=== PATIENT | male | born 1960 | race Caucasian/White ===

== ENCOUNTER 2023-02-18 05:55 | Emergency (ER) | payer MEDICAID, SELFPAY ==
--- NOTE | 2023-02-18 08:30 | DI.CT_ITS ---
Exam(s) CT ABDOMEN PELVIS W EXAM: CT ABDOMEN PELVIS W CLINICAL HISTORY: ? rectal abscess. TECHNIQUE: Imaging Protocol: Axial computed tomography images with coronal and sagittal reformatted images were created and reviewed CONTRAST MATERIAL: Intravenous: Omnipaque 350 Contrast volume:100 ml Oral: yes / COMPARISON: No exams were available for comparison FINDINGS: ABDOMEN: Lung Bases: Normal where visualized. Liver: Normal density. No measurable mass. Gallbladder and biliary tract: No radiodense calculus or dilation. Pancreas: Normal density, no abnormal calcifications or inflammatory process. Spleen: Normal. Kidneys: Normal size, contour and axis. No radiodense stones or obstructive uropathy. No suspicious m asses seen. Adrenal glands: No masses seen. Abdominal Aorta: Abdominal portion non-dilated. PELVIS: Bladder: No gross wall thickening. No calculi.No focal mass. Bowel: There is a large quantity of stool in the rectum. There is surrounding marked thickening of t he rectal wall. There is marked swelling as well as air seen in the perianal region and gluteal fold s. No drainable abscess. The extent of the soft tissue abnormality is not fully included on the exa m. No discrete mass is visible however not excluded. No obstruction. Appendix normal. Peritoneal cavity: No ascites, collection or mesenteric inflammatory response. Bones: Degenerative changes in the lumbar spine. Reproductive organs: Within normal limits. Lymph nodes: Multiple enlarged bilateral inguinal lymph nodes, likely reactive. Enlarged right iliac chain lymph node, 2 cm. Impression: Large quantity of stool in the rectum. Marked rectal wall thickening. Extensive soft tissue inflamm ation in the inferior gluteal fold region. No drainable abscess. Findings discussed with America Gamez, emergency department provider. RADIATION DOSE DELIVERED: 718.97mGy.cm Total DLP DATA REPOSITORY: All CT scans at this facility are submitted to the National Radiology Data Registry (NRDR) Dose Index Registry (DIR) with the [employer] (A[employer]). RADIATION OPTIMIZATION: All CT scans at this facility use at least one of these dose optimization te chniques: automated exposure control; mA and/or kV adjustment per patient size (includes targeted exa ms where dose is matched to clinical indication); or iterative reconstruction.
--- NOTE | 2023-02-18 08:40 | W.EDPROG ---
Date of service: 02/18/23 Time of Service: 08:00 Medical Decision Making 0800 --please see Dr. Tirado's note for initial presentation, exam and plan. Please note that patient was initially evaluated during [facility] downtime. Please refer to Dr. Tirado's paper documentation for initial ED visit note. Case endorsed to follow-up on CT imaging results and final disposition. Per discussion with Dr. Tirado, patient's high white blood cell count of 26 and concerning external peritoneal signs of infection, will likely need admission for at minimum IV antibiotics and additional evaluation. Patient is a 62-year-old male who has not seen a doctor in 10+ years presents for bruising rectal pain and swelling for the past month. He is also noted swelling and redness now progressing to his scrotum over the last few days. Denies any fever, chills, body aches, nausea, vomiting, abdominal pain, change in urination or bowel habits. Denies rectal bleeding. His abdomen is soft and nontender. He has what appears to be a large 8 x 8 cm irregularly shaped mass with multiple crevices which resemble the surface of a brain. There appears to be serous drainage. Scrotum appears mildly erythematous but no significant edema. CT pending. Patient reports that he does not have insurance or a car. He states he has been out of work due to the symptoms. We will consult care management. 1045 --CAT scan reviewed and notes a large quantity of stool in the rectum with marked rectal wall thickening and extensive soft tissue inflammation in the inferior gluteal fold region but no evidence of drainable abscess. Case discussed and imaging reviewed with Dr. Driver. She evaluated patient at bedside. Differential diagnosis includes rectal neoplasm versus extensive HPV. 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 Recommends a dose of Zosyn IV x1 here and send home with Augmentin twice daily for 10 days. She will follow-up with patient on Wednesday for a flex Sig and biopsy. Patient was given a dose of Zosyn here. A prescription for Augmentin was sent electronically to his pharmacy. He was placed on general surgery follow-up list for plan for day surgery on Wednesday for flex sig and biopsy. Patient was advised to return here immediately with any fever, chills, vomiting or abdominal pain. Patient met with Rosa Maria with care management at bedside and she will start the referral process likely for Medicaid and for [facility] for help with transportation to appointments. Medical Records Medical records reviewed: Yes I reviewed the patient's medical records. Imaging Data Radiologic Study: Radiologist's impression: CT ABDOMEN ? PELVIS W CLINICAL HISTORY: ? ? rectal abscess.? TECHNIQUE:? Imaging Protocol: Axial computed tomography images with coronal and sagittal reformatted images were created and reviewed CONTRAST MATERIAL:? Intravenous: Omnipaque 350 Contrast volume:100 ml Oral: yes / COMPARISON:? No exams were available for comparison FINDINGS: ABDOMEN: Lung Bases: Normal where visualized. Liver: Normal density. No measurable mass. Gallbladder and biliary tract: No radiodense calculus or dilation.? Pancreas: Normal density, no abnormal calcifications or inflammatory process. Spleen: Normal. Kidneys: Normal size, contour and axis. No radiodense stones or obstructive uropathy. No suspicious masses seen. Adrenal glands: No masses seen. Abdominal Aorta: Abdominal portion non-dilated. PELVIS:? Bladder:? No gross wall thickening. No calculi.No focal mass. Bowel: There is a large quantity of stool in the rectum.? There is surrounding marked thickening of the rectal wall.? There is marked swelling as well as air seen in the perianal region and gluteal folds.? No drainable abscess.? The extent of the soft tissue abnormality is not fully included on the exam. No discrete mass is visible however not excluded. No obstruction. ? Appendix normal. Peritoneal cavity: No ascites, collection or mesenteric inflammatory response. Bones: Degenerative changes in the lumbar spine.? Reproductive organs: Within normal limits. Lymph nodes: Multiple enlarged bilateral inguinal lymph nodes, likely reactive.? Enlarged right iliac chain lymph node, 2 cm. Impression: Large quantity of stool in the rectum.? Marked rectal wall thickening.? Extensive soft tissue inflammation in the inferior gluteal fold region.? No drainable abscess. Lab Data Lab results reviewed: Yes I reviewed the patient's lab results. Labs: Laboratory Tests Range/Units 02/18/23 02/18/23 02/18/23 06:11 06:11 06:11 WBC (4.4-10.8) 10^3/uL 26.33 H* RBC (4.36-5.78) 10^6/uL 4.10 L Hgb (13.5-17.5) g/dL 11.0 L Hct (40.0-50.0) % 34.6 L MCV (80-95) fL 84 MCH (27.0-33.0) pg 26.8 L MCHC (32.0-36.0) % 31.8 L RDW (11.8-14.1) % 15.4 H Plt Count (130-400) 10^3/uL 521 H MPV (8.0-11.0) fL 8.8 Immature Gran % 0.8 Neutrophils % 83.7 Lymphocytes % 8.1 Monocytes % 5.6 Eosinophils % 1.5 Basophils % 0.3 Nucleated RBC % (0.0-0.3) % 0.0 Absolute Neutrophils (1.2-6.7) 10^3/uL 22.04 H Absolute Lymphocytes (1.2-3.4) 10^3/uL 2.14 Absolute Monocytes (0.1-0.8) 10^3/uL 1.48 H Absolute Eosinophils (0.0-0.7) 10^3/uL 0.40 Absolute Basophils (0.0-0.2) 10^3/uL 0.07 PT (9.3-11.0) sec 10.4 INR (0.9-1.1) 1.0 APTT (21.5-31.9) sec 26.1 Sodium (136-145) mmol/L 136 Potassium (3.5-5.1) mmol/L 4.0 Chloride (98-107) mmol/L 101 Carbon Dioxide (21.0-32.0) mmol/L 27.7 Anion Gap (3-11) mmol/L 7.3 BUN (7-18) mg/dL 13 Creatinine (0.70-1.30) mg/dL 1.1 Est GFR (CKD-EPI 2020) (mL/min/1.73m2) 76.37 Glucose (74-106) mg/dL 146 H Calcium (8.5-10.1) mg/dL 9.4 Magnesium (1.8-2.4) mg/dL 2.0 Ferritin (26-388) ng/mL Total Bilirubin (0.2-1.0) mg/dL 0.3 AST (15-37) U/L 29 ALT (16-63) U/L 34 Alkaline Phosphatase (46-116) U/L 101 C-Reactive Protein (0.0-0.3) mg/dL Total Protein (6.4-8.2) g/dL 8.9 H Albumin (3.4-5.0) g/dL 2.6 L Lipase (16-77) U/L 16 Vitamin B12 (193-986) pg/mL Folate (8.6-20.0) ng/mL Add-On Test Request Range/Units 02/18/23 02/18/23 06:11 20:14 WBC (4.4-10.8) 10^3/uL RBC (4.36-5.78) 10^6/uL Hgb (13.5-17.5) g/dL Hct (40.0-50.0) % MCV (80-95) fL MCH (27.0-33.0) pg MCHC (32.0-36.0) % RDW (11.8-14.1) % Plt Count (130-400) 10^3/uL MPV (8.0-11.0) fL Immature Gran % Neutrophils % Lymphocytes % Monocytes % Eosinophils % Basophils % Nucleated RBC % (0.0-0.3) % Absolute Neutrophils (1.2-6.7) 10^3/uL Absolute Lymphocytes (1.2-3.4) 10^3/uL Absolute Monocytes (0.1-0.8) 10^3/uL Absolute Eosinophils (0.0-0.7) 10^3/uL Absolute Basophils (0.0-0.2) 10^3/uL PT (9.3-11.0) sec INR (0.9-1.1) APTT (21.5-31.9) sec Sodium (136-145) mmol/L Potassium (3.5-5.1) mmol/L Chloride (98-107) mmol/L Carbon Dioxide (21.0-32.0) mmol/L Anion Gap (3-11) mmol/L BUN (7-18) mg/dL Creatinine (0.70-1.30) mg/dL Est GFR (CKD-EPI 2020) (mL/min/1.73m2) Glucose (74-106) mg/dL Calcium (8.5-10.1) mg/dL Magnesium (1.8-2.4) mg/dL Ferritin (26-388) ng/mL 554 H Total Bilirubin (0.2-1.0) mg/dL AST (15-37) U/L ALT (16-63) U/L Alkaline Phosphatase (46-116) U/L C-Reactive Protein (0.0-0.3) mg/dL 7.05 H Total Protein (6.4-8.2) g/dL Albumin (3.4-5.0) g/dL Lipase (16-77) U/L Vitamin B12 (193-986) pg/mL 489 Folate (8.6-20.0) ng/mL 7.9 L Add-On Test Request DONE Discharge Plan Disposition Patient Disposition: Against Medical Advice Condition: Stable Discharge Details Clinical Impression: Rectal mass, Leukocytosis Primary Care Provider: Unknown,Unknown ED Provider: America Gamez Home Meds and New Rx's Prescriptions: New amoxicillin-pot clavulanate 875-125 mg tablet 1 tab PO BID 10 Days Qty: 20 0RF Discharge Instructions Instructions: Leukocytosis (ED), Rectal Pain (ED) Additional Instructions: You are leaving the hospital AGAINST MEDICAL ADVICE. It has been recommended that you stay in the hospital for IV antibiotics and continued observation. A prescription for antibiotics has been sent electronically to [facility] in [place]. You can take a half dose of MiraLAX daily to help with stool softening. You have been placed on general surgery follow-up list with plan for follow-up at the [facility] day surgery unit on February 23 for plan for flexible sigmoidoscopy and biopsy of your rectal mass. Return immediately to the emergency department if you develop any worsening or new concerning symptoms such as fever, nausea, vomiting, worsening pain or any other concerns. Referrals: Chelsea Driver DO [OSTEOPATHIC DOCTOR] - Discharge Data Discharge Date/Time-TO BE ENTERED AT DEPARTURE: 02/18/23 13:03 Discharge Physician: America Gamez
[2023-02-18] MEDS: Omnipaque 350 MG/ML 500 ML BTL-Imaging package 100 ML IJ (09:46)
[2023-02-18] MEDS: Normal Saline - Diluent 50 ML VIAL IJ (09:47)
--- NOTE | 2023-02-18 10:13 | PDOC.ERCMPRO ---
- If Service Date Differs Date of service: 02/18/23 Time of Service: 10:13 Care Management Progress Note Ronaldo presents in the ED for rectal pain and swelling. At the request of ED provider, JIMMY meets with patient to offer assistance with obtaining health insurance and a primary care provider. Patient gives verbal permission for JIMMY to contact [facility] and signs the [facility] Assistance Consent Form. The signed consent form is forwarded to Kristi Noble at [facility]. Kristi will outreach directly to patient to gather information needed for the insurance application. JIMMY also coordinates a referral to Christian Freeman MD, of [facility], t-doc, to assist Ronaldo in establishing care with a PCP. Transportation to and from appointments is also an issue for Ronaldo. JIMMY advises patient if he qualifies for Medicaid, he will then be able to use [facility] for transportation to appointments at no cost to him.
[2023-02-18] MEDS: PIPERACILLIN/TAZO 3.375 GM in Normal Saline 50 ML IVPB (11:45)
--- NOTE | 2023-02-18 11:54 | NUR.NOTE ---
Nursing Note: Referral faxed to [facility] for to schedule flex sigmoid next Tues. Dr. Driver consulted at time of ED visit.
[2023-02-18 12:08] LABS: ALT 34 U/L (16-63); AST 29 U/L (15-37); Albumin 2.6 g/dL (3.4-5.0); Alkaline Phosphatase 101 U/L (46-116); Anion Gap 7.3 mmol/L (3-11); BUN 13 mg/dL (7-18); Bilirubin, Total 0.3 mg/dL (0.2-1.0); CO2 27.7 mmol/L (21.0-32.0); CREATININE 1.1 mg/dL (0.70-1.30); Calcium 9.4 mg/dL (8.5-10.1); Chloride 101 mmol/L (98-107); Estimated GFR 76.37 (mL/min/1.73m2); Glucose 146 mg/dL (74-106); Lipase 16 U/L (16-77); Sodium 136 mmol/L (136-145); Total Protein 8.9 g/dL (6.4-8.2)
[2023-02-18 12:10] LABS: PTT Activated 26.1 sec (21.5-31.9); Prothrombin Time 10.4 sec (9.3-11.0)
[2023-02-18 12:11] LABS: Absolute Neutrophil Count 22.04 10^3/uL (1.2-6.7); Basophils % 0.3; Eosinophils % 1.5; HCT 34.6 % (40.0-50.0); Immature Grans % 0.8; Lymphocytes % 8.1; MCH 26.8 pg (27.0-33.0); MCHC 31.8 % (32.0-36.0); MCV 84 fL (80-95); MPV 8.8 fL (8.0-11.0); Monocytes % 5.6; Neutrophils % 83.7; RDW 15.4 % (11.8-14.1); RDW-SD 47.6 fL
[2023-02-18 12:12] LABS: WBC 26.33 10^3/uL (4.4-10.8)
[2023-02-18 12:13] LABS: Absolute Basophil Count 0.07 10^3/uL (0.0-0.2); Absolute Lymphocyte Count 2.14 10^3/uL (1.2-3.4); Absolute Monocyte Count 1.48 10^3/uL (0.1-0.8); Platelet Count 521 10^3/uL (130-400)
[2023-02-18 12:14] LABS: Diff Comment Agrees w/ Instrument
[2023-02-18 12:57] VITALS: BP 104/67; PULSE 87; RESP 18; TEMP 36.7; O2SAT 96
--- NOTE | 2023-02-18 14:32 | SCONE_ITS ---
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 Pt should stay in the hospital on IV abx to treat the infection and see we can get a diagnosis and referral over to [facility]. Patient refused to stay in the hospital. We will give him a dose of antibiotics IV and start him on Augmentin -He should push fluids and take a half a dose of MiraLAX daily to keep his stools loose. If he reaches a point where he feels very distended and bloated, he cannot pass gas or stool,he is having a high fever, and vomiting, he should seek a medical attention immediately. We tentatively have him set up for a flex sig and biopsy next Wednesday. Patient states he will come. I will have my office contact him to arrange this as an outpatient. labs and CT reviwewd. (2) Leukocytosis: Status: Acute (3) Smoker: Status: Acute (4) ETOH abuse: Status: Chronic (5) Microcytic anemia: Status: Acute (6) Hypoalbuminemia due to protein-calorie malnutrition: Status: Acute History of Present Illness Narrative: Is a 62-year-old male who does not have regular medical care. He presented to the ER today with rectal pain swelling and drainage. He has a large mass in the rectal area that has been present for 1 to 2 months. He denies any weight loss- he does not have a scale but his clothes fit him the same. He denies any pain or difficulty moving his bowels. He denies any nausea and vomiting. He denies any problems eating. He denies any fever or chills. 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 He is having a hard time sitting. I asked him multiple times in multiple different fashions and he adamantly denies any problems moving his bowels, any nausea vomiting or obstructive type symptoms. He denies having a heart attack or stroke. He denies asthma, emphysema, diabetes. He smokes 1 to 1.5 packs/day. He has a history of alcohol abuse. He did denies THC use. He has never had any surgeries before. He has never had any anesthesia before. Review of Systems All systems reviewed & are unremarkable except as noted in HPI and below PFSH All Active Problems Hypoalbuminemia due to protein-calorie malnutrition (Acute) Microcytic anemia (Acute) ETOH abuse (Chronic) Smoker (Acute) Rectal mass (Acute) Leukocytosis (Acute) Social History Smoking/Tobacco Use Status: Current every day Tobacco Type: cigarettes Smoking risk assessment performed?: Yes Alcohol Intake: current Alcohol Intake frequency: a few times a month Alcohol type: beer Drug use: Never Substance use type: does not use Do you feel safe at home: Yes Do you feel safe in your relationship?: Yes Exam Const General: cooperative and no acute distress Nutritional Appearance: cachectic and underweight Orientation: alert, awake and oriented x3 Resp Effort & Inspection: normal respiratory effort and able to speak in complete sentences Auscultation: clear to auscultation bilaterally Cardio Rate: regular rate Rhythm: regular rhythm GI Other: Abdomen is soft with no distention and normal bowel sounds the entire perineum is covered with tumor. From his scrotum to his coccyx. I am unable able to identify the rectal orifice and patient had too much pain to tolerate exam (patient denies problems having bowel movements). The tumor encroaches onto both buttocks. Left buttock is red edematous and tender. The tumor has multiple sinus tracts that secrete seropurulent drainage.. Extrem General: no pedal edema Results Last Vital Signs Temp 36.7 C 02/18/23 12:57 Pulse 87 02/18/23 12:57 Resp 18 02/18/23 12:57 BP 104/67 02/18/23 12:57 Pulse Ox 96 02/18/23 12:57 Labs 02/18/23 06:11 02/18/23 06:11 Labs: Laboratory Results - last 24 hr 02/18/23 02/18/23 02/18/23 06:11 06:11 06:11 WBC 26.33 H* RBC 4.10 L Hgb 11.0 L Hct 34.6 L MCV 84 MCH 26.8 L MCHC 31.8 L RDW 15.4 H Plt Count 521 H MPV 8.8 Immature Gran % 0.8 Neutrophils % 83.7 Lymphocytes % 8.1 Monocytes % 5.6 Eosinophils % 1.5 Basophils % 0.3 Nucleated RBC % 0.0 Absolute Neutrophils 22.04 H Absolute Lymphocytes 2.14 Absolute Monocytes 1.48 H Absolute Eosinophils 0.40 Absolute Basophils 0.07 PT 10.4 INR 1.0 APTT 26.1 Sodium 136 Potassium 4.0 Chloride 101 Carbon Dioxide 27.7 Anion Gap 7.3 BUN 13 Creatinine 1.1 Est GFR (CKD-EPI 2020) 76.37 Glucose 146 H Calcium 9.4 Magnesium 2.0 Total Bilirubin 0.3 AST 29 ALT 34 Alkaline Phosphatase 101 Total Protein 8.9 H Albumin 2.6 L Lipase 16
[2023-02-18 20:15] LABS: Lab Add On Test DONE
[2023-02-18 20:49] LABS: C-Reactive Protein 7.05 mg/dL (0.0-0.3)
[2023-02-18 20:57] LABS: Ferritin 554 ng/mL (26-388); Folate 7.9 ng/mL (8.6-20.0); Vitamin B12 489 pg/mL (193-986)
[2023-02-19 19:20] LABS: CEA 1.4 ng/mL (See Note)
== END 2023-02-18 13:03 | disposition left against medical advice (07) ==
PROVIDERS: Emergency Medicine; Surgery; Emergency Provider Physician Assistant
DX: K62.89 Other specified diseases of anus and rectum (principal); D72.829 Elevated white blood cell count, unspecified; F17.210 Nicotine dependence, cigarettes, uncomplicated; F10.10 Alcohol abuse, uncomplicated; D50.9 Iron deficiency anemia, unspecified; E88.09 Other disorders of plasma-protein metabolism, not elsewhere classified; E46 Unspecified protein-calorie malnutrition
CPT/HCPCS: 36415; 80053; 83690; 96365; 99285; 74177; 82378; 82607; 82728; 82746; 83735; 85025; 85610; 85730; 86140; 99284; J2543

== ENCOUNTER 2023-02-23 07:02 | Day surgery (SDC) | payer MEDICAID, SELFPAY ==
[2023-02-23] VITALS (8 sets, daily range): BP systolic 93–114; BP diastolic 40–71; PULSE 68–94; RESP 16–28; TEMP 36.5–37.5; O2SAT 92–98; BMI 21.4
[2023-02-23] MEDS: Lactated Ringers 1,000 ML 80 ML IV (07:43)
--- NOTE | 2023-02-23 08:26 | W.ANESPRE ---
General Info Date of Service Date Performed: 02/23/23 Height: 6 ft 2 in Weight: 76 kg Body Mass Index (BMI): 21.4 Surgical Procedure: Operation Date: 02/23/23 08:25 Proposed Procedure Side Surgeon p Flexible Sigmoidoscopy w/Biopsies Chelsea Driver DO Meds Allergies and Home Medications Allergies Allergy/AdvReac Type Severity Reaction Status Date / Time No Known Allergies Allergy Unverified 02/23/23 07:24 Home Medication Medication Instructions Recorded amoxicillin 875 mg-potassium 1 tab PO BID 10 days #20 tabs 02/18/23 clavulanate 125 mg tablet Current Visit Medications: Current Medications Generic Name Dose Route Start Last Admin Trade Name Freq PRN Reason Stop Dose Admin Hyoscyamine Sulfate 0.125 mg 02/23/23 08:10 Hyoscyamine 0.125 Mg Sl/Oral/Chew SL DIRECTED PRN Ringer's Solution 1,000 mls @ 80 mls/hr 02/23/23 06:00 02/23/23 07:43 IV 02/23/23 23:59 80 mls/hr INFUSION ОЛЬГА Administration IV Miscellaneous Supplies 1 each 02/23/23 06:00 Iv Access IV 02/23/23 23:59 DIRECTED ОЛЬГА Ondansetron HCl 4 mg 02/23/23 07:10 Ondansetron 4 Mg/2 Ml Vial IVP Q4H PRN PRN Nausea / Vomiting Sodium Chloride 0 ml 02/23/23 06:00 Normal Saline Flush 10 Ml Syr IV 02/23/23 23:59 PRN PRN Sodium Chloride 0 ml 02/23/23 06:00 Normal Saline 10 Ml Vial IJ 02/23/23 23:59 DIRECTED PRN Sterile Water 0 ml 02/23/23 06:00 Water,Injection,Sterile 10 Ml Vial IJ 02/23/23 23:59 DIRECTED PRN PFSH Active Problems Active Problems: Problem Status Onset Code Hypoalbuminemia due to protein-calorie malnutrition E88.09, E46 Microcytic anemia D50.9 ETOH abuse F10.10 Smoker F17.200 Rectal mass K62.89 Leukocytosis D72.829 Tobacco Smoking/Tobacco Use Status: Current every day Tobacco Type: cigarettes Smoking cigarettes per day: 20 Alcohol Alcohol Intake: current Alcohol intake frequency: a few times a week Alcohol type: beer Substance Use Substance use: Rarely Substance use type: marijuana Vital Signs and Lab Results Vital Signs Most Recent Vital Signs in EMR: Most Recent Vital Signs Temp Pulse Resp BP Pulse Ox 37.5 C 94 H 16 114/71 98 02/23/23 07:27 02/23/23 07:27 02/23/23 07:27 02/23/23 07:27 02/23/23 07:27 Lab Results Blood Type / Crossmatch: No Data to Display Complete Blood Count: White Blood Count 26.33 10^3/uL (4.4-10.8) H* 02/18/23 06:11 Red Blood Count 4.10 10^6/uL (4.36-5.78) L 02/18/23 06:11 Hemoglobin 11.0 g/dL (13.5-17.5) L 02/18/23 06:11 Hematocrit 34.6 % (40.0-50.0) L 02/18/23 06:11 Platelet Count 521 10^3/uL (130-400) H 02/18/23 06:11 Complete Metabolic Panel: Sodium 136 mmol/L (136-145) 02/18/23 06:11 Potassium 4.0 mmol/L (3.5-5.1) 02/18/23 06:11 Chloride 101 mmol/L (98-107) 02/18/23 06:11 Carbon Dioxide 27.7 mmol/L (21.0-32.0) 02/18/23 06:11 BUN 13 mg/dL (7-18) 02/18/23 06:11 Creatinine 1.1 mg/dL (0.70-1.30) 02/18/23 06:11 Est GFR (CKD-EPI 2020) 76.37 (mL/min/1.73m2) 02/18/23 06:11 Magnesium 2.0 mg/dL (1.8-2.4) 02/18/23 06:11 Calcium 9.4 mg/dL (8.5-10.1) 02/18/23 06:11 Albumin 2.6 g/dL (3.4-5.0) L 02/18/23 06:11 Glucose 146 mg/dL (74-106) H 02/18/23 06:11 C-Reactive Protein 7.05 mg/dL (0.0-0.3) H 02/18/23 06:11 Liver Function Panel: Alanine Aminotransferase (ALT/SGPT) 34 U/L (16-63) 02/18/23 06:11 Aspartate Amino Transf (AST/SGOT) 29 U/L (15-37) 02/18/23 06:11 Coagulation Panel: INR International Normalized Ratio 1.0 (0.9-1.1) 02/18/23 06:11 Prothrombin Time 10.4 sec (9.3-11.0) 02/18/23 06:11 Activated Partial Thromboplast Time 26.1 sec (21.5-31.9) 02/18/23 06:11 Cardiac Panel: No Data to Display Arterial Blood Gas: No Data to Display Venous Blood Gas: No Data to Display Pancreas Panel: Lipase 16 U/L (16-77) 02/18/23 06:11 Thyroid Panel: No Data to Display Infectious Disease: No Data to Display Blood Cultures: No Data to Display Toxicology Panel: No Data to Display Anesthesia Assessment and Plan Anesthesia History Personal History: Unknown Anesthesia History Family History: Family History Unknown Exercise Tolerance Exercise Tolerance: Metabolic Equivalents>4 Pertinent Negatives Pertinent Negatives: No Symptoms of GERD and No Major Cardiovascular Symptoms or Complaints Cardiac & Pulmonary Exam Cardiac Exam: Normal S1/S2 Heart Sounds Pulmonary Exam: Other (Distant) Implantable Cardiac Device Does patient have a Pacemaker or an ICD?: No Airway Exam Known Difficult Airway: No Mallampati Class: 2 Mouth Opening: Normal (> 3cm) Thyromental Distance: Greater than 3 cm Facial Hair: Full Martin Neck Range of Motion: Full ROM Neck Circumference: Normal Teeth Condition: Generalized Poor Dentition ASA Classification ASA Score: ASA 2 Emergency Case?: No NPO Status NPO Status: NPO Clears >2 hours, Solids >8 hours Anesthesia Plan Resuscitation Status: Full Code Anesthesia Technique: General Anesthesia Airway Planned: LMA Pain Management: Surgeon and patient request nerve block Monitors Used: Standard Monitors and SedLine
--- NOTE | 2023-02-23 09:32 | BOWEL_PTH ---
PATIENT: Ronaldo Esqueda LOC: [facility] U#:[id number] AGE/SX: 62/M ROOM: RE02/23/[address]: Chelsea Driver : 1960 BED: DIS: 02/23/2023 SPEC #: [id number] RECD: 02/23/23 12:40 STATUS: ANABELL REAnanya #: [id number] LAURIE: 02/23/23 09:[address]: Chelsea Driver DEPT: Surgical Specimen RECD BY: Brii Conway Tissues: 1 - BIOPSY BOWEL 2 - BIOPSY BOWEL 3 - BIOPSY BOWEL Procedures: GROSS AND MICRO LEVEL 4 Comments: [id number]
[2023-02-23] MEDS: Bupivacaine 0.25% Pres-Free W/EPI 30 ML VIAL (09:37)
--- NOTE | 2023-02-23 10:12 | ROE_ITS ---
Documented by User: Chelsea Driver DO 02/23/23 21:59 Date of service: 02/23/23 Time of Service: 10:12 Operative Note Operative Note DATE OF PROCEDURE: 02/23/23 PRE-OP DIAGNOSIS: rectal mass/probable cancer/near obstructing POST-OP DIAGNOSIS: same PROCEDURE: Flexible Sigg with biopsy SURGEON: Chelsea Driver ANESTHESIA TYPE: Local By Surgeon and General LMA/ETT Refer to Anesthesia Record ESTIMATED BLOOD LOSS: 5 PATHOLOGY: other COMPLICATIONS: None Patient was transported to: same day Patient's condition: stable Indications: prep: On the table lavage once patient is sedated Patient would not be able to do a mechanical bowel prep or enemas. Procedure Description: After informed consent was obtained the patient was taken to the procedure room and placed in a left decubitous position. Monitors were applied and a time out was done. The patients name, date of , procedure, allergies to medications and metal in their body was reviewed. Anesthesia is administered per the department of anesthesia . Patient is then placed into stirrups. Once sedated and comfortable a rectal exam was done. External exam: Reveals a 18 x 13 x 8 cm fungating rectal mass. It extends from the scrotum to the coccyx and onto the both buttock. It has a degree of chronic infection. It is drains and bleeds continuously, and she does have significant pain. It was infected when I initially saw him in the ER, particularly on the right buttock. The redness and swelling has gone down significantly. I am able to identify the rectal orifice. The sphincters are completely obliterated the tumor extends for a depth of 8 cm By rectal exam. I am able to to do a rectal exam and reach normal mucosa. The rectal opening is about 1 cm in circumference. Patient states he does have some control over bowel movements. The scope was then introduced and retrofelexed. Again the sphincters are obliterated. I am able to pass the scope up approximately 4 inches. There is s o much stool in the rectal vault that I am really not able to do any type of evaluation. the scope was removed. 20 cc of quarter percent Marcaine is used for local anesthetization. The areas are prepped and draped in the usual sterile fashion using a Betadine scrub solution. Biopsies are taken from the 12 o'clock position, the 2 o'clock position, the 7 o'clock position. Cautery was then used to provide hemostasis. Dressings are applied. The patient was woken up and taken back to Same day surgery in stable condition. The patient tolerated the procedure, and there were no immediate complications. The patient does have very poor pulmonary status Follow up: The patient should follow up next week in my office to review biopsies. Referral was placed to Nallely shaw. Documented by User: Lucy Sanchez MD 02/24/23 14:17 Operative Note Operative Note Findings:
[2023-02-23] MEDS: metroNIDAZOLE 500 MG/100 ML BAG 100 MG IVPB (10:16)
--- NOTE | 2023-02-23 10:17 | PDOC.DSDIS_ITS ---
Date of service: 02/23/23 Time of Service: 10:17 Discharge Plan Disposition Patient Disposition: Home Condition: Good Discharge Details Attending Provider: Chelsea Driver Home Meds and New Rx's Prescriptions: No Action amoxicillin-pot clavulanate 875-125 mg tablet 1 tab PO BID 10 Days Qty: 20 0RF Discharge Instructions Additional Instructions: DSU Colonoscopy Post- Op Instructions Instructions for Everyone who is given Anesthesia: For your safety, please do the following for the next twenty-four (24) hours: *Do Not operate a motor vehicle (car, truck, motorcycle, etc.) *Do Not drink alcoholic beverages or use any recreational drugs for the first 24 hours or while taking pain medications. The medications in your body may have a reaction that can be dangerous. *Do Not make any important decisions or sign any important papers. Findings: rectal mass Follow up: Dr. Driver in surgery clinic 03/01 at 10am. Miralax 1/2 a cap-full daily to keep bowels soft. use Maxi-pad to collect drainage. 1. No lifting over 20 pounds or strenuous activity for the first 24 hours after your procedure. After 24 hours there are no restrictions on your activity but you may feel fatigued for a few days. 2. After you arrive home you may have a light meal and return to your normal diet as you can tolerate it without feeling sick to your stomach. 3. You may have a bloated, gaseous feeling in your belly (abdomen) after a colonoscopy. Passing gas and belching will help. Walking or lying down on your left side with your knees flexed may relieve the discomfort. Call the office at [phone] (Office) or [phone] (Hospital) right away if you notice any of the following: a.Vomiting of blood or ?coffee ground stools?. b.Rectal bleeding 1Tbsp, blood clots or continuous bleeding. c.Severe belly (abdominal) pain. d.A hard distended belly (abdomen) and an inability to pass gas. 4. Please don?t expect to have a normal BM (bowel movement) for 2-3 days after your procedure. 5. If there are questions regarding the findings of your procedure, please contact your doctor 6. If you are unable to contact your doctor with a problem, contact the hospital at [phone]. 7. Continue all your regular medications unless directed otherwise. I understand the above instructions and have no questions. Signature of Patient or Adult Escort Name of Responsible Adult Escort Signature of Nurse Date/Time Activity:: Activity as Tolerated Diet:: As Tolerated Discharge Orders Discharge Orders: Discharge Order (Routine); Ordered 02/23/23 Ordered By: Chelsea Driver
--- NOTE | 2023-02-23 10:18 | W.ANESPOSTOP ---
Postoperative Evaluation Date, Time and Location Date Performed: 02/23/23 Time Performed: 10:18 Patient Location: PACU Vital Signs Most Recent Imported Vital Signs: Most Recent Vital Signs Temp Pulse Resp BP Pulse Ox 36.6 C 68 26 H 94/57 L 96 02/23/23 10:10 02/23/23 10:10 02/23/23 10:10 02/23/23 10:10 02/23/23 10:10 Pain Score Most Recent Pain Score: Most Recent Pain Score Pain Level 0 02/23/23 10:10 Assessment Mental Status: Awake (Alert & Oriented to Patient Baseline) Airway and Respiratory Function: Patent airway with normal (patient baseline) respiratory exam Cardiovascular Function: Hemodynamically Stable Hydration Status: Adequately Hydrated Nausea & Vomiting: No Nausea or Vomiting Pain: Pt. Denies Any Pain Peripheral Nerve Block: Patient did not receive a nerve block
--- NOTE | 2023-02-23 11:29 | PDOC.DSDIS_ITS ---
Date of service: 02/23/23 Time of Service: 11:33 Discharge Plan Disposition Patient Disposition: Home Condition: Good Discharge Details Attending Provider: Chelsea Driver Home Meds and New Rx's Prescriptions: New tramadol 50 mg tablet 50 mg PO Q6H PRNQty: 20 0RF Continued amoxicillin-pot clavulanate 875-125 mg tablet 1 tab PO BID 10 Days Qty: 20 0RF Discharge Instructions Additional Instructions: DSU Colonoscopy Post- Op Instructions Instructions for Everyone who is given Anesthesia: For your safety, please do the following for the next twenty-four (24) hours: *Do Not operate a motor vehicle (car, truck, motorcycle, etc.) *Do Not drink alcoholic beverages or use any recreational drugs for the first 24 hours or while taking pain medications. The medications in your body may have a reaction that can be dangerous. *Do Not make any important decisions or sign any important papers. Findings: rectal mass Follow up: Dr. Driver in surgery clinic 03/01 at 10am. Miralax 1/2 a cap-full daily to keep bowels soft. use Maxi-pad to collect drainage. 1. No lifting over 20 pounds or strenuous activity for the first 24 hours after your procedure. After 24 hours there are no restrictions on your activity but you may feel fatigued for a few days. 2. After you arrive home you may have a light meal and return to your normal diet as you can tolerate it without feeling sick to your stomach. 3. You may have a bloated, gaseous feeling in your belly (abdomen) after a colonoscopy. Passing gas and belching will help. Walking or lying down on your left side with your knees flexed may relieve the discomfort. Call the office at [phone] (Office) or [phone] (Hospital) right away if you notice any of the following: a.Vomiting of blood or ?coffee ground stools?. b.Rectal bleeding 1Tbsp, blood clots or continuous bleeding. c.Severe belly (abdominal) pain. d.A hard distended belly (abdomen) and an inability to pass gas. 4. Please don?t expect to have a normal BM (bowel movement) for 2-3 days after your procedure. 5. If there are questions regarding the findings of your procedure, please contact your doctor 6. If you are unable to contact your doctor with a problem, contact the [facility] at [phone]. 7. Continue all your regular medications unless directed otherwise. I understand the above instructions and have no questions. Signature of Patient or Adult Escort Name of Responsible Adult Escort Signature of Nurse Date/Time Activity:: Activity as Tolerated Diet:: As Tolerated Discharge Orders Discharge Orders: Discharge Order (Routine); Ordered 02/23/23 Ordered By: Chelsea Driver
== END 2023-02-23 11:45 | disposition home or self-care (01) ==
PROVIDERS: Visit Provider Surgery
PROC: 0DJD8ZZ Inspection of Lower Intestinal Tract, Via Natural or Artificial Opening Endoscopic (ICD-10-PCS; CPT 45330; principal; 2023-02-23 08:15)
DX: K62.89 Other specified diseases of anus and rectum (principal); F10.10 Alcohol abuse, uncomplicated; F17.210 Nicotine dependence, cigarettes, uncomplicated; C20 Malignant neoplasm of rectum
CPT/HCPCS: 45331; 88305; J0690; J2250; J2405; J2704; J3010; J7613

== ENCOUNTER 2023-03-08 05:03 | Outpatient (CLI) | payer MEDICAID, SELFPAY ==
[2023-03-08] MEDS: Albuterol HFA 18 GM 200 PUFF INH IH (08:46)
[2023-03-08] MEDS: Inhaler, Assist Device 1 EACH MC (08:47)
--- NOTE | 2023-03-08 09:36 | W.PFT ---
Date of service: 03/08/23 Time of Service: 07:59 Pulmonary Function Test Result Indications: COPD Interpretation Spirometry: There is moderate airflow limitation. There is a significant bronchodilator reponse. Lung Volumes: There is hyperinflation and air trapping Diffusion Capacity: Normal diffusion Airway Pressure: Normal airways resistance Impression Moderate airflow obstruction with a bronchodilator response and air trapping but a normal diffusion. This likely represents COPD (chronic bronchitis type). Clinical Correlation therefore is recommended.
== END 2023-03-08 05:04 | disposition home or self-care (01) ==
PROVIDERS: Visit Provider Surgery
DX: F17.210 Nicotine dependence, cigarettes, uncomplicated; J44.9 Chronic obstructive pulmonary disease, unspecified
CPT/HCPCS: 94060; 94726; 94729

== ENCOUNTER 2023-03-11 01:11 | Outpatient (CLI) | payer MEDICAID, SELFPAY ==
--- NOTE | 2023-03-11 15:10 | DI.US_ITS ---
APPROVED REPORT EXAM: Comprehensive 2D, Doppler, and color-flow Echocardiogram Patient Location: Out-Patient Painter Chassis: Chelsea Villagran RDCS (AE) Indications: Pre operative evaluation for surgery/chemo, rectal CA, smoker, copd Other Information Study Quality: Fair. Technically limited study due to body habitus, smoker. Conclusion Normal left ventricular wall thickness and chamber size. Ejection fraction is 55 to 60%. Wall motio n appears normal Normal right ventricular size and systolic function Both atria are normal in size There is no structural or hemodynamically significant valvular disease Estimated right ventricular systolic pressure is 28 mmHg Wall motion Left Ventricle Technically limited parasternal imaging. The left ventricle is normal size. The overall left ventricu lar systolic function appears normal. There is normal left ventricular wall thickness. There is cheri l LV segmental wall motion. There is no ventricular septal defect visualized. LVEF is 56%. Right Ventricle The right ventricle is normal size. The right ventricular systolic function is normal. The RVSP is 28 .7 mmHg. Atria The left atrium size is normal. The right atrium size is normal. Prominent Eustachian valve is noted in the right atrium. The interatrial septum is intact with no evidence for an atrial septal defect. Aortic Valve The aortic valve is normal in structure. Aortic valve is trileaflet. There is no aortic valvular sten osis. No aortic regurgitation is present. Mitral Valve The mitral valve is normal in structure. No evidence of mitral valve stenosis. Trace mitral regurgita tion. Tricuspid Valve The tricuspid valve is normal in structure. There is no tricuspid valve stenosis. Trace tricuspid reg urgitation. Pulmonic Valve Pulmonic valve is not well visualized. There is no pulmonic valvular stenosis. There is no pulmonic v alvular regurgitation. Great Vessels The aortic root is normal in size. Descending aorta is not well visualized. Aortic arch is normal in caliber. IVC is normal in size and collapses >50% with inspiration. Pericardium There is no pericardial effusion. 2D Dimensions Ao Root d 3.07 cm M: 3.1 - 3.7 LV Vol A2C d MOD 150.6 mL RA Area A4C 10.48 cm2 LV Vol A4C d MOD 134.1 mL RA Vol/ BSA A4C s A-L 10.7 mL/m2 LA vol/ BSA A4C s A-L 22.6 mL/m2 LVEF ([facility]) 58.23 % M: 52 - 72 LA Area A4C s MOD 15.36 cm2 LV Volume 111.37 mL M: 62 - 150 LV EF A4C MOD 57.7 % LV Volume Index 56.53 mL/m2 M: 34 - 74 LV EF A2C MOD 56.2 % LV Vol Biplane MOD 147.6 mL LV EF Biplane MOD 58.2 % SV 85.97 mL SV Index 43.73 mL/m2 M-Mode TAPSE 2.46 cm (M/F) >1.7 LV Diastology MV E' medial 0.114 (>0.07 m/s) E/A Ratio 1.0 LV E/e MED 4.60 (<14) MV E Vmax 0.53 (0.4-1.3 m/s) MV E' lateral 0.191 (>0.1 m/s) MV A Vmax 0.55 (0.4-1.3 m/s) LV E/e LAT 2.75 (<14) MV E/A Ratio 0.94 MV E/E' medial 4.65 MV E/E' lateral 2.78 Aortic Valve LVOT Area 3.14 cm2 AoV Area Vmax 2.34 cm2 LVOT Vmax 1.26 m/s AoV Area/ BSA (Vmax) 1.19 cm2/m2 LVOT Mean Danyel. 0.87 m/s JOHN Mean Danyel. 2.29 cm2 LVOT Peak Grad 6.3 mmHg JOHN Mean Danyel. Index 1.17 cm2/m2 LVOT Mean Grad 3.4 mmHg LVOT VTI 0.255 m LVOT Diam s 2.00 cm AoV Vmax 1.69 m/s Velocity Ratio 0.75 AoV Mean Danyel. 1.19 m/s AoV Peak Grad 11.4 mmHg LVOT SV 80.22 mL AoV Mean Grad 6.3 mmHg AoV VTI 0.292 m AoV Area VTI 2.75 cm2 AoV Area/ BSA (VTI) 1.40 cm/m2 Mitral Valve MV DT 359 (160-240 msec) MV PHT 104 msec MV Area PHT 2.11 cm2 MV VTI 0.238 m MV Area VTI 3.37 (4.0-6.0 cm2) Pulmonary Valve PV Vmax 1.38 (0.5-1.5 m/s) RVOT Peak Gr. 1.90 mmHg PV Peak Grad 7.6 mmHg RVOT Mean Gr. 0.95 mmHg PV Mean Grad 3.6 mmHg RVOT VTI 0.107 m PV VTI 0.202 m RVOT Vmax 0.69 m/s Tricuspid Valve TR Peak Grad 25.6 mmHg TR Vmax 2.53 m/s RA Pressure 3.00 mmHg RVSP (TR) 28.7 mmHg
== END 2023-03-11 01:31 ==
LOC: DI 01:11
PROVIDERS: Visit Provider Surgery
DX: C20 Malignant neoplasm of rectum (principal); D50.9 Iron deficiency anemia, unspecified; E46 Unspecified protein-calorie malnutrition; E88.09 Other disorders of plasma-protein metabolism, not elsewhere classified; F10.10 Alcohol abuse, uncomplicated; F17.200 Nicotine dependence, unspecified, uncomplicated; J44.9 Chronic obstructive pulmonary disease, unspecified; Z01.810 Encounter for preprocedural cardiovascular examination
CPT/HCPCS: 93306

== ENCOUNTER 2023-03-19 10:16 | Inpatient (IN) | payer MEDICAID, SELFPAY ==
[2023-03-19] VITALS (18 sets, daily range): BP systolic 90–114; BP diastolic 41–65; PULSE 59–100; RESP 16–28; TEMP 36.1–37.3; O2SAT 92–100; BMI 20.8
--- NOTE | 2023-03-19 11:04 | ED.GENADUL_ITS ---
Discharge Plan Discharge Details Chief Complaint: Abd Prob Primary Care Provider: Sha Ramos ED Provider: Ethan Hansen Home Meds and New Rx's Prescriptions: No Action Secura Protective (zinc oxide) 10 % cream 1 applic topical BID-QID PRN (Reason: skin irritation) Qty: 78 6RF oxycodone 5 mg tablet 5 mg PO Q4H MDD 6 PRN (Reason: pain) Qty: 20 0RF Medical Decision Making 62-year-old gentleman with advanced anal cancer with a almost complete obstruction of his rectum. Case discussed with surgeon. Flat and upright obtained to rule out obstruction. Patient taken to the operating room by my colleague for colostomy. HPI General Date/Time Provider Initiated Documentation: 03/19/23 11:03 . HPI Narrative: 62-year-old gentleman with known anal cancer with extension to the rectum, large mass, being seen by [facility] oncology. PET scan pending as well as colorectal surgery consult. Presented to the emergency room because he is having difficulty having bowel movements. States that he will have small liquidy bowel movements but has been unable to have a satisfying BM for quite some time now. Mild abdominal discomfort. No nausea no vomiting. Is able to pass gas from below. Related Data Home Medications Medication Instructions Recorded Confirmed oxycodone 5 mg tablet 5 mg PO Q4H PRN pain #20 tabs 03/01/23 03/19/23 zinc oxide 10 % topical cream 1 applic topical BID-QID PRN skin 03/01/23 03/19/23 (Secura Protective (zinc oxide)) irritation #78 grams Previous Rx's Medication Instructions Recorded oxycodone 5 mg tablet 5 mg PO Q4H PRN pain #20 tabs 03/01/23 zinc oxide 10 % topical cream 1 applic topical BID-QID PRN skin 03/01/23 (Secura Protective (zinc oxide)) irritation #78 grams Allergies Allergy/AdvReac Type Severity Reaction Status Date / Time No Known Allergies Allergy Unverified 03/01/23 10:19 General Stated Complaint: Abd Prob WENDY: 3 Review of Systems Narrative: 10 point review of symptoms is negative unless otherwise specified PFSH All Active Problems 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 (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) Housing insecurity (Acute) Food insecurity (Acute) 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 COPD (chronic obstructive pulmonary disease) (Chronic) Hypoalbuminemia due to protein-calorie malnutrition (Acute) Microcytic anemia (Acute) ETOH abuse (Chronic) Smoker (Acute) Social History Smoking/Tobacco Use Status: Current every day Tobacco Type: cigarettes Smoking risk assessment performed?: Yes Alcohol Intake: current Alcohol Intake frequency: a few times a week Alcohol type: beer Drug use: Rarely Substance use type: marijuana Do you feel safe at home: Yes Do you feel safe in your relationship?: Yes Exam Narrative Exam Narrative: Adult normal exam General: A,A Ox3, Calm, no apparent distress, thin, pleasant and cooperative Head Size/Shape: normocephalic, atraumatic Eyes Pupils: PERRLA Extraocular Mobility: intact and symmetrical Conjunctiva: non-injected, anicteric, no discharge Ears, Nose, Throat Nares: patent bilaterally Oral Cavity: moist Respiratory Respiratory Effort: no dyspnea Cardiovascular Heart Auscultation: regular rate and rhythm, normal S1, normal S2, no murmurs, no rubs, no gallops, Abdomen Inspection and Palpation: soft, non-tender, non-distended, no hepatosplenomegaly Large mass in the anal area. Positive discharge and friable tissue that bleeds easily unable to visualize anus Musculoskeletal System Joints, Bones, and Muscles: no deformities Extremities: warm and well-perfused, no cyanosis, capillary refill <2 seconds Skin Skin Inspection: no rash, no lesions, no bruising Neurological Motor: normal tone, normal strength, moving all extremities equally Psychiatric: good insight, good judgement, normal mood and affect Course Vital Signs Vital signs: Vital Signs Temperature 36.8 C 03/19/23 10:21 Pulse 100 H 03/19/23 10:21 Respiratory Rate 18 03/19/23 10:21 Blood Pressure 106/63 03/19/23 10:21 Pulse Oximetry 99 03/19/23 10:21 Temperature 36.8 C 03/19/23 10:21 Temperature Source Oral 03/19/23 10:21 Pulse 100 H 03/19/23 10:21 Respiratory Rate 18 03/19/23 10:21 Respiratory Effort Normal, Non-Labored 03/19/23 10:25 Blood Pressure 106/63 03/19/23 10:21 Blood Pressure Position Sitting 03/19/23 10:21 Pulse Oximetry 99 03/19/23 10:21 Oxygen Delivery Method Room Air 03/19/23 10:21 Oxygen Flow Rate 0 03/19/23 10:21
--- NOTE | 2023-03-19 11:07 | NUR.NOTE ---
Nursing Note Dr Hansen at pt's bedside. Pt positioned self on right side, left leg flexed. This chief writer witnessed Dr Hansen's visual evaluation of pt's perianal area, rectal exam deferred. Dr Hansen noted small amount of blood draining from rectal area. Pt remains on right side, position of comfort, warm blanket received, pt with call dominguez within reach, pt denies other requests at this time.
--- NOTE | 2023-03-19 11:30 | DI.RAD_ITS ---
Exam(s) XR ABDOMEN FLAT UPRIGHT EXAM: 2D digital imaging was performed. CLINICAL HISTORY: pain. COMPARISON: No exams were available for comparison TECHNIQUE: Supine and upright views of the abdomen were performed. FINDINGS: BOWEL GAS PATTERN: Large quantity of stool seen throughout the colon. Stomach and small bowel are no ndistended.No free air. CALCIFICATIONS: No urinary tract calcifications visible. OSSEOUS STRUCTURES: Degenerative disc changes in the lumbar spine. Visualized portions of chest: Unremarkable. IMPRESSION: Nonobstructive bowel gas pattern. Large quantity of stool. DATA REPOSITORY: RADIATION DOSE DELIVERED:
[2023-03-19] MEDS: Normal Saline 250 ML 500 ML IV (11:48)
[2023-03-19 11:51] LABS: Abs Immature Grans 0.11 10^3/uL (0.0-0.06); Absolute Basophil Count 0.09 10^3/uL (0.0-0.2); Absolute Eosinophil Count 0.38 10^3/uL (0.0-0.7); Absolute Lymphocyte Count 1.55 10^3/uL (1.2-3.4); Absolute Monocyte Count 1.01 10^3/uL (0.1-0.8); Basophils % 0.5; Eosinophils % 2.2; HCT 33.5 % (40.0-50.0); HGB 10.6 g/dL (13.5-17.5); Immature Grans % 0.6; Lymphocytes % 8.9; MCHC 31.6 % (32.0-36.0); MCV 85 fL (80-95); MPV 8.4 fL (8.0-11.0); Monocytes % 5.8; Platelet Count 452 10^3/uL (130-400); RBC 3.93 10^6/uL (4.36-5.78); RDW 15.3 % (11.8-14.1); RDW-SD 48.1 fL; WBC 17.44 10^3/uL (4.4-10.8)
[2023-03-19 12:13] LABS: ALT 23 U/L (16-63); AST 33 U/L (15-37); Albumin 2.4 g/dL (3.4-5.0); Alkaline Phosphatase 118 U/L (46-116); Anion Gap 4.7 mmol/L (3-11); BUN 11 mg/dL (7-18); Bilirubin, Total 0.3 mg/dL (0.2-1.0); CO2 30.3 mmol/L (21.0-32.0); Calcium 9.4 mg/dL (8.5-10.1); Chloride 100 mmol/L (98-107); Estimated GFR 85.63 (mL/min/1.73m2); Glucose 106 mg/dL (74-106); Potassium 3.8 mmol/L (3.5-5.1); Sodium 135 mmol/L (136-145); Total Protein 8.5 g/dL (6.4-8.2)
--- NOTE | 2023-03-19 12:22 | HPE_ITS ---
Date of service: 03/19/23 Time of Service: 12:22 Assessment and Plan Assessment and plan (1) Colon obstruction: Status: Acute Assessment and plan: Informed consent is obtained for the procedural (explained in simple layman's terms that the pt and/or family could understand) explaining risks vs benefits and alternatives to the procedure and consequences if we do not do the procedure. Risks include but are not limited to: bleeding, infections, pneumonia, blood clots/DVT/PE, anesthesia (aspiration, damage to teeth/airway/[place]/CVA//prolonged mechanical ventilation/PTX/IV infections), damage to bowel, bladder, blood vessels, ureters. Wound infections requiring further surgeryScarring and disfigurement. Subsequent bowel obstructions from scar tissue.? Chronic pain or numbness from the incision, or hernia. Possible open procedure if minimally invasive procedure is being attempted. -We will plan on doing a epidural for pain control He may be in the hospital couple of days to get his bowels functioning normally. He is scheduled to start chemo next Wednesday and I would like him to be able to keep this appointment. He does have the Xeloda at home already -We will get him set up with home supplies at home health This document was created with voice activated software and may contain errors. 60 mins spent with the patient today. 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 He had anal Ca who has becomw obstructed. The pt has not been able to have a bowel movement or pass gas in the last 48 hours. He feels very bloated and backed up he has had no nausea or vomiting. He has not eaten in the last 2 days. He is starting to get pain in the left lower quadrant. Patient is someone who does not receive regular medical care. And for him to come into the ER generally means he is really feeling very poorly. He does have anal cancer and will be undergoing radiation. We had discussed previously, that with karen mitten radiation there will be a significant amount of swelling in the area and and there was a high probability that he would become obstructed and need diversion. I discussed with him today and he is agreeable to colostomy at this point. We discussed what he could expect in surgery, for surgery, recovery time and risks. Risks include but not limited to: Bleeding, infection, pneumonia, blood clots, damage to bowel, bladder, blood. Most likely this will be a permanent colostomy. He did have PFTs and an echo preop for rate chemo and radiation. Please see in [employer]. 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 (Acute) Housing insecurity (Acute) Food insecurity (Acute) 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 COPD (chronic obstructive pulmonary disease) (Chronic) Hypoalbuminemia due to protein-calorie malnutrition (Acute) Microcytic anemia (Acute) ETOH abuse (Chronic) Smoker (Acute) Social History Smoking/Tobacco Use Status: Current every day Tobacco Type: cigarettes Smoking risk assessment performed?: Yes Alcohol Intake: current Alcohol Intake frequency: a few times a week Alcohol type: beer Drug use: Rarely Substance use type: marijuana Do you feel safe at home: Yes Do you feel safe in your relationship?: Yes Meds Allergies and Home Medications Allergies Allergy/AdvReac Type Severity Reaction Status Date / Time No Known Allergies Allergy Unverified 03/01/23 10:19 Home Medications Medication Instructions Recorded Confirmed Type oxycodone 5 mg tablet 5 mg PO Q4H PRN pain #20 tabs 03/01/23 03/19/23 Rx zinc oxide 10 % topical cream 1 applic topical BID-QID PRN skin 03/01/23 03/19/23 Rx (Secura Protective (zinc oxide)) irritation #78 grams Exam HENMT Other: poor dentition Cardio Rate: regular rate Rhythm: regular rhythm GI Other: distended. no peritonitis. +BS no prior surgery anal mass is grossly infected Extrem Other: no c/c/e Results Labs 03/19/23 11:45 03/19/23 11:45 Labs: Laboratory Results - last 24 hr 03/19/23 11:45 WBC 17.44 H RBC 3.93 L Hgb 10.6 L Hct 33.5 L MCV 85 MCH 27.0 MCHC 31.6 L RDW 15.3 H Plt Count 452 H MPV 8.4 Immature Gran % 0.6 Neutrophils % 82.0 Lymphocytes % 8.9 Monocytes % 5.8 Eosinophils % 2.2 Basophils % 0.5 Nucleated RBC % 0.0 Absolute Neutrophils 14.30 H Absolute Lymphocytes 1.55 Absolute Monocytes 1.01 H Absolute Eosinophils 0.38 Absolute Basophils 0.09 Last Vital Signs Temp 36.8 C 03/19/23 10:21 Pulse 100 H 03/19/23 10:21 Resp 18 03/19/23 10:21 BP 106/63 03/19/23 10:21 Pulse Ox 99 03/19/23 10:21 Time Spent Time spent with Patient: 55-74 minutes Time was spent: preparing to see the patient(eg.review tests), obtaining and/or reviewing separately otained hiistory, ordering medications,tests, procedures, referring, communicating with other health career development coordinator, indepentently interpreting results, counseling the patient and care coordination
[2023-03-19] MEDS: PIPERACILLIN/TAZO 3.375 GM in Normal Saline 50 ML IVPB ×2 (12:23→19:59)
--- NOTE | 2023-03-19 13:07 | W.PM.OP ---
Date of service: 03/19/23 Time of Service: 13:07 Operative Note Operative Note DATE OF PROCEDURE: 03/19/23 PRE-OP DIAGNOSIS: Obstructing anal cancer POST-OP DIAGNOSIS: same PROCEDURE: Diverting descending colon loop colostomy SURGEON: Chelsea Driver ASSISTING SURGEON: Lucy Sanchez ANESTHESIA TYPE: Local By Surgeon, General LMA/ETT and Epidural Refer to Anesthesia Record ESTIMATED BLOOD LOSS: 10 PATHOLOGY: none sent COMPLICATIONS: None Patient was transported to: PACU Patient's condition: stable Procedure Description: Mr. Niles Noonan is a 62-year-old male with obstructing anal cancer. He was diagnosed about 3 weeks ago. He came into the ER today with 48 hours of obstipation and inability to pass flatus. He has had no nausea or vomiting. He does not have any peritoneal signs. He is due to start chemo on Wednesday. The anal tumor is grossly infected again today. The tumor is weeping purulent material-it is a constant source of protein loss for him and significant pain. We have previously discussed that at some point he is going to develop complete obstruction due to his tumor, especially with impending radiation. We had discussed doing a diverting ostomy previously but he was not in a position to accept this. When I think he is feeling so poorly that he has come to the conclusion that he does require this. He has seen oncology and again it was discussed with him that given the extent of his tumor burden, at this is not a curable tumor and chemoradiation will extend his life with hopeful weaning good quality. We discussed doing diverting ostomy today. Informed consent is obtained explaining risks and benefits of the procedure. We discussed living with the colostomy. He does not drive and does not have significant resources. We will get wound care and care management involved. He is also lost a significant amount of weight and we will have nutrition see him as well. Risks include but are not limited to: Bleeding, infection, pneumonia, blood clots, anesthesia, poor healing, hernias, wound infections, prolapse, and other on for told complications. Patient is brought to the operative suite and placed in the supine position. Anesthesia is administered per the department of anesthesia, including epidural anesthesia. He did receive preop antibiotics. A Leigh catheter and SCDs are placed. Patient is prepped and draped in the usual sterile fashion using a ChloraPrep scrub solution. A timeout is performed with all members of the operative room team in agreement. Site is chosen in the left lower quadrant just below the belt line. 10 cc of quarter percent Marcaine is used to anesthetize the location over the rectus muscle, paramedian fashion 3 cm below the umbilicus. Electrocautery was used to provide hemostasis and dissect down to the deeper tissues. The fascia is incised. The rectus muscle is split. the peritoneum was elevated and entered. There is no fluid in the abdominal cavity. Previous scans have shown no intra-abdominal disease. There is only some localized inguinal adenopathy apparent on PET scan. A loop of descending colon is pulled up through the incision. There is no tension. The fatty attachments are removed using electrocautery. A bridge is placed through the mesentery. The colostomy is then opened using cautery. The 3 04/16/2012 Compass points are secured with a three-point stitch of 3-0 Vicryl. The remainder of the colostomy Tracy is matured with 4-0 Vicryl. A colostomy appliance is placed. Patient tolerated procedure well without complication and transferred to recovery room in stable condition.
[2023-03-19] MEDS: Lactated Ringers 1,000 ML 100 ML IV (13:38)
[2023-03-19] MEDS: Bupivacaine 0.25% Pres-Free 30 ML VIAL (13:52)
--- NOTE | 2023-03-19 14:03 | ANES.NEUR_ITS ---
Epidural/Spinal Catheter Date Performed: 03/19/23 Procedure Start: 13:04 Procedure Stop: 13:24 Requesting Provider: Chelsea Driver Procedure Location: PACU Reason Performed: Postoperative Analgesia Standard Monitors Applied: ECG, Blood Pressure, SpO2 and See EMR for corresponding vital signs Patient Position: Left Lateral Decubitus Sedation Given (Indicate Dose Given): Versed IV Dose:: 2mg IVSP Patient Mental Status: Awake Sterility: Hand Hygiene, Surgical Cap, Surgical Mask, Sterile Gloves, Sterile Drape/Sheet and Chlorhexidine Procedure Location: L3-L4 Interspace Epidural Needle: Tuohy 17 Guage Needle Length: 5 Inch Needle Approach: Midline Epidural Procedure: Skin Prepped, Sterile Drape Placed, 1% Lidocaine to skin and subcutaneous tissue with 25G needle, Tuohy Needle placed, ANAY to Saline Used, Catheter Met Resistance, Tuohy and Catheter Removed (1st attempt, 18gu (unable to pass catheter), change to 17gu Tuohy), Negative Heme, Negative CSF Flow and Tuohy Needle Removed Catheter Placed?: Catheter Placed Test Dose (Indicate Dose Given): 3ml 1.5% Lidocaine with 1:200K Epinephrine Given and Negative Test Dose Loss of Resistance Depth (cm): 6 Catheter depth at skin (cm): 12 Dressing: Sorbaview Dressing Placed and Dressing reinforced with Tape Epidural Provider Bolus (Indicate Dose Given): None Given Additives (Indicate Dose Given ): None Infusi on Medication: No Infusion Started Block Level: N/A Paresthesia: None Ultrasound: Not Used Number of Attempts (See previous attempts in note section): 2 Procedure Tolerated: No Complications and Patient tolerated well Procedure Outcome: Successful Performed By: Kevin Bardales
[2023-03-19] MEDS: FentaNYL/ROPIvacaine 2 mcg/ml and 0.1% 200 ML CADD Cassette EP (14:08)
--- NOTE | 2023-03-19 14:35 | W.ANESPRE ---
General Info Date of Service Date Performed: 03/19/23 Height: 6 ft 1 in Weight: 71.668 kg Body Mass Index (BMI): 20.8 Surgical Procedure: Operation Date: 03/19/23 12:50 Proposed Procedure Side Surgeon p Colostomy Diverting Chelsea Driver DO Actual Procedure Side Surgeon p Colostomy Diverting Not Applicable Chelsea Driver, Pre-Op Diagnosis Post-Op Diagnosis Colon obstruction Colon obstruction Meds Allergies and Home Medications Allergies Allergy/AdvReac Type Severity Reaction Status Date / Time No Known Allergies Allergy Unverified 03/01/23 10:19 Home Medication Medication Instructions Recorded oxycodone 5 mg tablet 5 mg PO Q4H PRN pain #20 tabs 03/01/23 zinc oxide 10 % topical cream 1 applic topical BID-QID PRN skin 03/01/23 (Secura Protective (zinc oxide)) irritation #78 grams Current Visit Medications: Current Medications Generic Name Dose Route Start Last Admin Trade Name Freq PRN Reason Stop Dose Admin Albuterol Sulfate 2.5 mg 03/19/23 13:08 Albuterol 2.5 Mg/3 Ml Inh Soln Vial UPD Q4H PRN PRN Droperidol 0.625 mg 03/19/23 14:20 Droperidol 5 Mg/2 Ml Vial IVP DIRECTED PRN Nausea Enoxaparin Sodium 40 mg 03/19/23 14:00 Enoxaparin 40 Mg/0.4 Ml Syr SC Q24H ОЛЬГА Ephedrine Sulfate 0 mg 03/19/23 14:20 Ephedrine 25 Mg/5 Ml Syringe IVP DIRECTED PRN Piperacillin Sod/Tazobactam 50 mls @ 100 mls/hr 03/19/23 12:00 03/19/23 12:23 Sod 3.375 gm/ Sodium Chloride IVPB 100 mls/hr Q6H ОЛЬГА Administration Protocol Ringer's Solution 1,000 mls @ 100 mls/hr 03/19/23 12:00 03/19/23 14:31 IV 100 mls/hr INFUSION ОЛЬГА Infusion Sodium Chloride 500 mls @ 0 mls/hr 03/19/23 13:08 Saline 500ml Bag IV PRN PRN As Directed Sodium Chloride 1,000 mls @ 125 mls/hr 03/19/23 13:15 Saline 1000ml Bag IV INFUSION ОЛЬГА Acetaminophen 1,000 mg in 100 mls @ 400 mls/hr 03/19/23 13:15 Ofirmev IVPB Q6H ОЛЬГА Famotidine 20 mg/ Sodium 102 mls @ 400 mls/hr 03/19/23 13:15 Chloride IVPB Q12H ОЛЬГА IV Miscellaneous Supplies 1 each 03/19/23 13:15 Iv Access IV DIRECTED ОЛЬГА Morphine Sulfate 2 mg 03/19/23 13:08 Morphine 2 Mg/Ml Syr IVP Q1H PRN PRN Naloxone HCl 0 mg 03/19/23 14:20 Naloxone 0.4 Mg/Ml Vial IVP PRN PRN Ondansetron HCl 4 mg 03/19/23 13:08 Ondansetron 4 Mg/2 Ml Vial IVP Q4H PRN PRN Sodium Chloride 0 ml 03/19/23 13:08 Normal Saline Flush 10 Ml Syr IVP PRN PRN PFSH Active Problems Active Problems: Problem Status Onset Code Colon obstruction K56.609 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 Z59.82 Housing insecurity Z59.819 Food insecurity Z59.41 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 COPD (chronic obstructive pulmonary disease) J44.9 Hypoalbuminemia due to protein-calorie malnutrition E88.09, E46 Microcytic anemia D50.9 ETOH abuse F10.10 Smoker F17.200 Tobacco Smoking/Tobacco Use Status: Current every day Tobacco Type: cigarettes Smoking cigarettes per day: 20 Alcohol Alcohol Intake: current Alcohol intake frequency: a few times a week Alcohol type: beer Substance Use Substance use: Rarely Substance use type: marijuana Vital Signs and Lab Results Vital Signs Most Recent Vital Signs in EMR: Most Recent Vital Signs Temp Pulse Resp BP Pulse Ox 36.8 C 100 H 18 106/63 99 03/19/23 10:21 03/19/23 10:21 03/19/23 10:21 03/19/23 10:21 03/19/23 10:21 Lab Results 03/19/23 11:45 03/19/23 11:45 Blood Type / Crossmatch: No Data to Display Complete Blood Count: White Blood Count 17.44 10^3/uL (4.4-10.8) H 03/19/23 11:45 Red Blood Count 3.93 10^6/uL (4.36-5.78) L 03/19/23 11:45 Hemoglobin 10.6 g/dL (13.5-17.5) L 03/19/23 11:45 Hematocrit 33.5 % (40.0-50.0) L 03/19/23 11:45 Platelet Count 452 10^3/uL (130-400) H 03/19/23 11:45 Complete Metabolic Panel: Sodium 135 mmol/L (136-145) L 03/19/23 11:45 Potassium 3.8 mmol/L (3.5-5.1) 03/19/23 11:45 Chloride 100 mmol/L (98-107) 03/19/23 11:45 Carbon Dioxide 30.3 mmol/L (21.0-32.0) 03/19/23 11:45 BUN 11 mg/dL (7-18) 03/19/23 11:45 Creatinine 1.0 mg/dL (0.70-1.30) 03/19/23 11:45 Est GFR (CKD-EPI 2020) 85.63 (mL/min/1.73m2) 03/19/23 11:45 Magnesium 2.0 mg/dL (1.8-2.4) 02/18/23 06:11 Calcium 9.4 mg/dL (8.5-10.1) 03/19/23 11:45 Albumin 2.4 g/dL (3.4-5.0) L 03/19/23 11:45 Glucose 106 mg/dL (74-106) 03/19/23 11:45 C-Reactive Protein 7.05 mg/dL (0.0-0.3) H 02/18/23 06:11 Liver Function Panel: Alanine Aminotransferase (ALT/SGPT) 23 U/L (16-63) 03/19/23 11:45 Aspartate Amino Transf (AST/SGOT) 33 U/L (15-37) 03/19/23 11:45 Coagulation Panel: INR International Normalized Ratio 1.0 (0.9-1.1) 02/18/23 06:11 Prothrombin Time 10.4 sec (9.3-11.0) 02/18/23 06:11 Activated Partial Thromboplast Time 26.1 sec (21.5-31.9) 02/18/23 06:11 Cardiac Panel: No Data to Display Arterial Blood Gas: No Data to Display Venous Blood Gas: No Data to Display Pancreas Panel: Lipase 16 U/L (16-77) 02/18/23 06:11 Thyroid Panel: No Data to Display Infectious Disease: No Data to Display Blood Cultures: No Data to Display Toxicology Panel: No Data to Display Anesthesia Assessment and Plan Anesthesia History Personal History: Unknown Anesthesia History Family History: Family History Unknown Exercise Tolerance Exercise Tolerance: Metabolic Equivalents>4 Cardiac & Pulmonary Exam Cardiac Exam: Normal S1/S2 Heart Sounds Pulmonary Exam: Clear Bilateral Breath Sounds Implantable Cardiac Device Does patient have a Pacemaker or an ICD?: No Airway Exam Known Difficult Airway: No Mallampati Class: 2 Mouth Opening: Normal (> 3cm) Thyromental Distance: Greater than 3 cm Neck Range of Motion: Full ROM Neck Circumference: Normal Teeth Condition: Generalized Poor Dentition ASA Classification ASA Score: ASA 4 Emergency Case?: Yes NPO Status NPO Status: NPO Clears >2 hours, Solids >8 hours Anesthesia Plan Resuscitation Status: Full Code Anesthesia Technique: General Anesthesia Airway Planned: Endotracheal Tube Pain Management: Epidural Monitors Used: Standard Monitors
--- NOTE | 2023-03-19 14:45 | DI.RAD_ITS ---
Exam(s) XR PORTABLE CHEST AP POST LINE EXAM: XR PORTABLE CHEST AP POST LINE CLINICAL HISTORY: Central line TECHNIQUE: 2D digital imaging was performed. COMPARISON: CR XR ABDOMEN FLAT UPRIGHT from 03/19/2023 FINDINGS: A central line has been placed via the right subclavian. The tip lies in the lower SVC. No pneumoth orax. LUNGS: Clear. No pleural abnormality seen. HEART: Normal size. AORTA: Normal diameter. BONES: Unremarkable for age. Soft tissues: Free air is now seen beneath the diaphragm. Not present on a flat and upright abdomen views performed earlier the same day. IMPRESSION: Satisfactory placement central line. Free air beneath diaphragm. DATA REPOSITORY: RADIATION DOSE DELIVERED:
--- NOTE | 2023-03-19 14:47 | W.ANESVAS ---
Central Venous Line Placement Date Performed: 03/19/23 Procedure Time: 14:25 Procedure Location: Operating Room Requesting Provider: Lucy Sanchez Standard Monitors Applied: ECG, Blood Pressure, SpO2 and ETCO2 Pt. Position: Supine Timeout Performed: No Sedation Given (Indicate Dose Given): No Sedation given Patient Mental Status: Performed under general anesthesia Sterility: Hand Hygiene, Surgical Cap, Surgical Mask, Sterile Gloves, Sterile Drape/Sheet, Sterile Gown and Chlorhexidine Laterality: Right Insertion Site: Axillary Central Line Type: Triple Lumen Catheter Insertion Procedure: Vessel accessed with catheter over needle, catheter advanced, Guidewire placed with ease, Dermatotomy (skin amaya) made with scalpel, Dilator placed without resistance and Introducer/Catheter placed without resistance Dressing: Tegaderm Applied and BioPatch Catheter Depth at Skin (cm): 20 Placement Confirmation: Confirmation X-Ray Ordered Ultrasound: Sterile probe cover and gel used Ultrasound Image Saved?: Yes Number of Attempts (See previous attempts in note section): 1 Procedure Tolerated: No Complications Procedure Outcome: Successful Performed By: Otis Sullivan
--- NOTE | 2023-03-19 15:08 | W.ANESPOSTOP ---
Postoperative Evaluation Date, Time and Location Date Performed: 03/19/23 Time Performed: 15:08 Patient Location: PACU Vital Signs Most Recent Imported Vital Signs: Most Recent Vital Signs Temp Pulse Resp BP Pulse Ox 36.8 C 100 H 18 106/63 99 03/19/23 10:21 03/19/23 10:21 03/19/23 10:21 03/19/23 10:21 03/19/23 10:21 Pain Score Most Recent Pain Score: Most Recent Pain Score Pain Level 0 03/19/23 12:47 Assessment Mental Status: Awake (Alert & Oriented to Patient Baseline) Airway and Respiratory Function: Patent airway with normal (patient baseline) respiratory exam Cardiovascular Function: Hemodynamically Stable Hydration Status: Adequately Hydrated Nausea & Vomiting: No Nausea or Vomiting Pain: Pt. Denies Any Pain Peripheral Nerve Block: Other (Epidural)
[2023-03-19] MEDS: Ketorolac 15 MG/ML VIAL IVP ×2 (15:29→21:09)
[2023-03-19] MEDS: Lactated Ringers 1,000 ML 1000 ML IV (17:03)
[2023-03-19] MEDS: FAMOTIDINE 20 MG in Normal Saline 100 ML 400 MG IVPB (18:09)
[2023-03-19] MEDS: Normal Saline 1,000 ML 125 ML IV (19:17)
[2023-03-19] MEDS: Docusate Sodium 100 MG CAP PO (21:09)
[2023-03-20] VITALS (24 sets, daily range): BP systolic 90–96; BP diastolic 41–61; PULSE 59–90; RESP 14–22; TEMP 36.7–37.2; O2SAT 94–98
[2023-03-20] MEDS: PIPERACILLIN/TAZO 3.375 GM in Normal Saline 50 ML IVPB ×4 (02:38→19:56)
[2023-03-20] MEDS: Ketorolac 15 MG/ML VIAL IVP ×4 (04:03→21:30)
[2023-03-20] MEDS: Enoxaparin 40 MG/0.4 ML SYR SC (04:08)
[2023-03-20] MEDS: FAMOTIDINE 20 MG in Normal Saline 100 ML 400 MG IVPB ×2 (05:24→17:58)
[2023-03-20 06:44] LABS: Abs Immature Grans 0.12 10^3/uL (0.0-0.06); Absolute Basophil Count 0.04 10^3/uL (0.0-0.2); Basophils % 0.2; HCT 26.5 % (40.0-50.0); HGB 8.3 g/dL (13.5-17.5); Immature Grans % 0.6; Lymphocytes % 6.9; MCH 26.9 pg (27.0-33.0); MCHC 31.3 % (32.0-36.0); MCV 86 fL (80-95); MPV 9.1 fL (8.0-11.0); Monocytes % 4.3; Platelet Count 334 10^3/uL (130-400); RBC 3.08 10^6/uL (4.36-5.78); RDW 15.6 % (11.8-14.1); RDW-SD 49.1 fL; WBC 20.87 10^3/uL (4.4-10.8)
[2023-03-20 06:49] LABS: Absolute Lymphocyte Count 1.44 10^3/uL (1.2-3.4); Absolute Neutrophil Count 18.37 10^3/uL (1.2-6.7)
[2023-03-20 06:58] LABS: Anion Gap 5.6 mmol/L (3-11); BUN 11 mg/dL (7-18); CO2 26.4 mmol/L (21.0-32.0); CREATININE 1.1 mg/dL (0.70-1.30); Calcium 8.8 mg/dL (8.5-10.1); Chloride 105 mmol/L (98-107); Estimated GFR 76.37 (mL/min/1.73m2); Glucose 144 mg/dL (74-106); Potassium 3.8 mmol/L (3.5-5.1); Sodium 137 mmol/L (136-145)
--- NOTE | 2023-03-20 07:00 | W.ANESEPD ---
Epidural/Spinal Daily Note Date Performed: 03/20/23 Assessment Time: 07:01 Patient Location: Med/Surg Catheter Type in Place: Epidural Catheter Dressing Assessment: Dressing intact with good adherence Catheter Assessment: Catheter Labeled and Intact and Functioning Previous Catheter Depth Noted (cm): 12 Current Catheter Depth (cm): 11 Current Medication Infusion: Ropivacaine 0.1% with Fentanyl 2mcg/ml Current Maintenance Infusion Rate (ml/hour): 8 Current PCEA Bolus Dose (ml): 5 Current Pain Score (0-10): 0 Medication Infusion Stopped, Catheter Removal Planned: No New Bolus Given or Change in Infusion Made: No Daily Management Comments: Pt. expressed he wants to go home today and wants the epidural removed. I spoke to Dr. Sanchez who anticipated discharge potentially on Wednesday. I spoke to pt. about this and shared my concern that POD1 may be to early to remove epidural due to rebound pain. Our plan is to reassess tomorrow and potentially do a trial with epidural off tomorrow. He will receive his morning 4am dose of Lovenox and if trial goes well, plan to remove catheter tomorrow. He agrees with this plan, although is very motivated to go home. Completed By: Troy Malone
[2023-03-20] MEDS: FentaNYL/ROPIvacaine 2 mcg/ml and 0.1% 200 ML CADD Cassette EP (08:41)
--- NOTE | 2023-03-20 08:56 | IN_ITS ---
Date of service: 03/20/23 Time of Service: 09:43 PT Notes Visit Reasons: Obstructing anal cancer Inpatient Physical Therapy Evaluation Date: 03/20/23 Referring Doctor: Chelsea Driver PT Orders: PT CONSULT: Non-urgent, Anal cancer, general deconditioning, S/P div erting colostomy Precautions: Standard Patient Profile/Admitting Diagnosis: 62 y o male with anal squamous cell carcinoma, S/P diverting colostomy 03/19/23. He will be starting radiation and chemotherapy soon. H/o poor medical care and consultation. 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 Landlord lives on the property. 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 He does not work. He was independently functioning prior to admission Current Functional Limitations: Supervision with transfers Equipment Owned/DME: None Subjective: No one is going to tell me what to do, I will do what I want. I can't sit normal on my butt due to cancer. I sit sideways. Objective: General Observation: Leigh, IV left cubital fossa, colostomy Mental Status: Alert to person, place and time. Agitated - admits to angry demeanor due to lack nicotine Pain: 3/10 all over Vital Signs: 75/50 BP, 75 HR, 100% O2 on room air ROM: Right Upper Extremity: WNL Left Upper Extremity: WNL Right Lower Extremity: WNL Left Lower Extremity: WNL Strength: Right Upper Extremity: Grossly 5/5 Left Upper Extremity: Grossly 5/5 Right Lower Extremity: Grossly 5/5 Left Lower Extremity: Grossly 5/5 Sensation: WNL Bed Mobility/Transfers: Bed mobility: Independent Supine to EOB: Independent Sit to stand: close supervision -- quick to move, not willing to take his time Stand to sit: close supervision -- has to sit sideways in chair due to rectal pain Stand pivot: close supervision, no device. Moves quickly, neglects cues to take his time, slightly unsteady. Gait: Demonstrates ability to take 3-4 steps to chair, not willing to ambulate farther today due to IV lines, etc bothering him and causing some agitation. Balance: Static Sitting: Good Dynamic Sitting: Good Static Standing: Good Dynamic Standing: Fair - slight unsteadiness Special Tests: Mobility Limitations Standardized Measure [facility] AM-PAC 6 clicks Basic Mobility Inpatient Short Form: 28% disability Informed Consent/Education: Patient instructed in purpose of PT consult and plan of care. Assessment: Patient is a 62 year old male referred to physical therapy services with the diagnosis of S/P diverting colostomy 03/19/23, in setting of anal squamous cell carcinoma. Patient presents with impairments of slight unsteadiness on feet with dynamic movement and poor awareness of his potential fall risk, due to influence of post surgical epidural weakness and general recovery. He requires a lot of encouragement to slow down, but is not interested in instruction. He demonstrates independence with bed mobility, transfers, and STS movements, but with more concern for more dynamic ambulation and change of direction activities required of in home living, that his current post surgical state is making him unsteady with. He will require continued PT service to insure return to stable ambulation and dynamic movement over the course of the next few days during his admission, and provide guided instruction on strengthening and conditioning exercises to limit deconditioning during medical course to allow his safe return home safely, without fall risk. Patient is assessed as a Moderate [address] complexity based on the following: History: Lives alone, does not drive, does not work, no family support. Examination: Unsteady on feet, poor safety awareness Presentation: Evolving Decision Making: Easy Goals: Goals X1 week [facility] 0% disability Independent with ambulation, no device, 50 ft with direction changes Independent with light object carry within room, to simulate home environment ADL abitliy Independent with HEP Plan of Care/Treatment Plan: 1-2x/day, 7 days/week x 1 week. Plan of care has been reviewed with the PRODUCTION MACHINE SHOP SUPERVISOR providing the service under Physical Therapy direction. Initiate Physical Therapy intervention for strengthening, balance training and safety education. DISCHARGE RECOMMENDATIONS: Home with no services , consider HHPT if patient strength and steadiness does not progress as anticipated. TREATMENT CODE/TIME: 20 min, [id number], 9:15-9:35 a.m.
[2023-03-20] MEDS: Normal Saline 500 ML 100 ML IV (09:08)
[2023-03-20] MEDS: Normal Saline Flush 10 ML SYR IVP ×5 (09:08→21:31)
[2023-03-20] MEDS: Polyethylene Glycol 3350 17 GM PACKET PO (09:09)
[2023-03-20] MEDS: Docusate Sodium 100 MG CAP PO ×2 (09:09→19:55)
--- NOTE | 2023-03-20 10:00 | PGE_ITS ---
Date of Service Date of service: 03/20/23 Time of Service: 10:01 Assessment and Plan Assessment and plan (1) Colon obstruction: Status: Acute Assessment and plan: POD #1 s/p diverting loop colostomy for obstructing anal squamous cell cancer I had a 30 minute conversation with Ronaldo regarding the fact that at this time I do not feel that It would be safe to let him go home. His WBC count is elevated and we are unable to set up Home Health to assist with ostomy care and ostomy supplies. He seems depressed as well. I have asked Paliative care to meet with him to assist with goals of care. 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 He would like to go home. His pain is well controlled on the epidural. His WBC count is elevated today ay 20.87 He has been afebrile Electrolites are normal Exam Const General: cooperative and frail appearing Nutritional Appearance: thin Orientation: alert and oriented x3 HENMT Head: normocephalic and atraumatic Resp Effort & Inspection: normal respiratory effort Auscultation: clear to auscultation bilaterally Cardio Rate: regular rate Rhythm: regular rhythm Heart Sounds: no gallops, no murmurs and no rubs GI Inspection: other (ostomy is pink. minimal soft stool) Palpation: soft and tender (appropriately tender around his ostomy) Auscultation: normal bowel sounds Objective Last Vital Signs Temp 98.2 F 03/20/23 09:18 Pulse 74 03/20/23 09:18 Resp 18 03/20/23 09:18 BP 95/58 L 03/20/23 09:18 Pulse Ox 95 03/20/23 09:18 Laboratory Results - last 24 hr 03/19/23 03/19/23 03/20/23 11:45 11:45 06:20 WBC 17.44 H RBC 3.93 L Hgb 10.6 L Hct 33.5 L MCV 85 MCH 27.0 MCHC 31.6 L RDW 15.3 H Plt Count 452 H MPV 8.4 Immature Gran % 0.6 Neutrophils % 82.0 Lymphocytes % 8.9 Monocytes % 5.8 Eosinophils % 2.2 Basophils % 0.5 Nucleated RBC % 0.0 Absolute Neutrophils 14.30 H Absolute Lymphocytes 1.55 Absolute Monocytes 1.01 H Absolute Eosinophils 0.38 Absolute Basophils 0.09 Sodium 135 L 137 Potassium 3.8 3.8 Chloride 100 105 Carbon Dioxide 30.3 26.4 Anion Gap 4.7 5.6 BUN 11 11 Creatinine 1.0 1.1 Est GFR (CKD-EPI 2020) 85.63 76.37 Glucose 106 144 H Calcium 9.4 8.8 Total Bilirubin 0.3 AST 33 ALT 23 Alkaline Phosphatase 118 H Total Protein 8.5 H Albumin 2.4 L 03/20/23 06:20 WBC 20.87 H RBC 3.08 L Hgb 8.3 L D Hct 26.5 L MCV 86 MCH 26.9 L MCHC 31.3 L RDW 15.6 H Plt Count 334 MPV 9.1 Immature Gran % 0.6 Neutrophils % 88.0 Lymphocytes % 6.9 Monocytes % 4.3 Eosinophils % 0.0 Basophils % 0.2 Nucleated RBC % 0.0 Absolute Neutrophils 18.37 H Absolute Lymphocytes 1.44 Absolute Monocytes 0.90 H Absolute Eosinophils 0.00 Absolute Basophils 0.04 Sodium Potassium Chloride Carbon Dioxide Anion Gap BUN Creatinine Est GFR (CKD-EPI 2020) Glucose Calcium Total Bilirubin AST ALT Alkaline Phosphatase Total Protein Albumin Time Spent with Patient Time Spent with Patient: 25-34 minutes Time was spent: ordering medications,tests, procedures, indepentently interpreting results and counseling the patient
--- NOTE | 2023-03-20 10:09 | PDOC.HHF2F_ITS ---
Home Health Referral Home Health Orders Clinical synopsis of why skilled professionals are needed: Patient with new loop colostomy for obstructing anal cancer Medical diagnosis necessitation home health referral: new ostomy Registered Nurse: Check all that apply Instruct on new or changed medication(s)/assess compliance: Ordered (new antibiotics) Instruct on ostomy care: Ordered (needs assistance with ostomy care, teaching) Assess for exacerbation of medical condition, instruct patient/caregivers on signs and symptoms to report for early detection: Ordered Assess wound for signs and symptoms of infection, instruct on wound care and/or provide skilled wound care consisting of: anal cancer spreading to soft tissues- check for worsening infection, bleeding Encounter Date and Reason: I certify that a FTF encounter for this patient was performed on March 20, 2023 and that such encounter was related to the primary reason the patient requires home health services. The encounter was conducted in the following manner: * By me as the certifying physician, STRATEGIC MARKETING SPECIALIST, PA or * By an inpatient physician, STRATEGIC MARKETING SPECIALIST or PA during an inpatient stay who communicated findings to me, Certification And Authentication I certify that I composed the above information based on my clinical judgment relating to this patient's medical condition and, if applicable, clinical findings communicated to me by the NPP or inpatient physician who performed the FTF encounter. Name of Provider that will be monitoring home health services: Chelsea Driver
--- NOTE | 2023-03-20 10:38 | INITIAL_ITS ---
Date of service: 03/20/23 Time of Service: 10:38 Care Management Initial Assmt Initial Assessment REASON FOR HOSPITALIZATION:: Obstructing Anal Cancer PREVIOUS FUNCTIONAL STATUS/SOCIAL/FAMILY SUPPORTS:: Ronaldo lives in [place]. He does not drive, and gets rides from who ever is available. He has taken RCT once, when he went to [facility]. No further information is obtained per pts preference. CURRENT FUNCTIONAL STATUS:: Patient is lying in bed, he feels like he is being asked these questions so he cant go home. CM discussed the goal of early discharge planning is an effort to support a safe and successful discharge. Patient does not want to engage any further in this interview. ADVANCE DIRECTIVES:: Per chart review: none Has patient been provided with info about the portal/API?: Yes Did the patient sign up for the portal?: No CODE STATUS:: Full Code INSURANCE COVERAGE / FINANCIAL ISSUES:: Medicaid CURRENT HOME/COMMUNITY SERVICES/EQUIPMENT:: Per chart review: Currently working with a CHW from [facility]:: Sha Ramos POTENTIAL DISCHARGE NEEDS:: Per chart review: patient has housing, food and transportation insecurity needs. Patient declined to disclose information to CM. Per chart review, he is working closely with [employer]. PATIENT/FAMILY EDUCATION NEEDS:: Review discharge instructions, limitations, medications and plan to follow up with community providers. Discuss ask me three and goals of self care. TRANSPORTATION:: Via private vehicle with family vs. RCT PLAN:: Anticipate, Ronaldo will discharge home with [facility] RN services for ostomy support and supplies. Recommend follow up with community providers, community connections and discharge plan of care as prescribed. CM will continue to support patient and his discharge planning needs. PFSH All Active Problems Colon obstruction (Acute) Transportation insecurity due to lack of cryogenic transport driver's license (Acute) Housing insecurity (Acute) Food insecurity (Acute) 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 COPD (chronic obstructive pulmonary disease) (Chronic) Hypoalbuminemia due to protein-calorie malnutrition (Acute) Microcytic anemia (Acute) ETOH abuse (Chronic) Smoker (Acute) Social History Smoking/Tobacco Use Status: Current every day Tobacco Type: cigarettes Smoking risk assessment performed?: Yes Alcohol Intake: current Alcohol Intake frequency: a few times a week Alcohol type: beer Drug use: Rarely Substance use type: marijuana Do you feel safe at home: Yes Do you feel safe in your relationship?: Yes
[2023-03-21] VITALS (26 sets, daily range): BP systolic 90–107; BP diastolic 47–66; PULSE 64–79; RESP 15–20; TEMP 36.7–37.4; O2SAT 94–99
[2023-03-21] MEDS: PIPERACILLIN/TAZO 3.375 GM in Normal Saline 50 ML IVPB ×2 (01:39→10:10)
[2023-03-21] MEDS: Normal Saline Flush 10 ML SYR IVP ×6 (01:40→20:11)
[2023-03-21] MEDS: FentaNYL/ROPIvacaine 2 mcg/ml and 0.1% 200 ML CADD Cassette EP (01:49)
[2023-03-21] MEDS: Ketorolac 15 MG/ML VIAL IVP ×2 (03:38→10:12)
[2023-03-21] MEDS: Enoxaparin 40 MG/0.4 ML SYR SC (03:39)
[2023-03-21] MEDS: FAMOTIDINE 20 MG in Normal Saline 100 ML 400 MG IVPB (05:50)
--- NOTE | 2023-03-21 08:25 | NUR.NOTE ---
Nursing Note: At approximately 0815 on 03/21/23 when RN entered the pt.'s room to obtain VS and perform epidural catheter assessments per protocol, pt. stated that he wanted to be discharged by this afternoon because he was going to have a ride today, but not tomorrow. Pt. also stated that he was sick of all the various lines (epidural catheter, Leigh catheter, IV lines, SCD's) and that was ...about ready to just rip them all out. RN removed the pt.'s SCD's and informed that pt. that they could remove the IV in his left antecubital, but that the triple lumen subclavian IV, the Leigh catheter, and the epidural catheter needed to remain in place at this time. RN informed the pt. that they would notify the charge nurse who would then notify the MD. Pt. agreed to leave the lines in place at this time. Pt. appears very anxious and irritable though. RN then left the room and informed the charge nurse of the pt.'s statements. MD to be notified.
--- NOTE | 2023-03-21 08:44 | NUR.NOTE ---
Nursing Note: At approximately 0835 on 03/21/23, this RN entered the pt.'s room to remove the pt.'s left antecubital IV. While in the pt.'s room, pt. stated that he really needed to get outside to have a cigarette and then he would come back in. RN informed the pt. that he wasn't allowed to do this per hospital policy. RN then informed the pt. that there are multiple nicotine replacement options, including the nicotrol inhaler, patch, lozenges, and gum. Pt. refused all of them at this time stating, If I can't just have a cigarette then I need to get the hell out of here. RN encouraged the pt. to ring if they changed their mind about accepting nicotine replacement. Pt. then stated again that he really wanted the epidural catheter and Leigh catheter removed and that he was feeling some discomfort at the colostomy site. In regards to the epidural catheter, pt. stated, It's not really helping with my pain anyways. RN educated pt. that the epidural catheter may be providing more pain relief that he was aware of, but that they would inform the charge nurse of the pt.'s statements. RN also educated the pt. regarding the fact that he most likely would have some pain/discomfort at the surgical site for a little while, and that the healthcare team wouldn't be able to get rid of his pain completely. Pt. rolled his eyes and sighed. RN reminded the pt. that the MD had been notified of the pt.'s statements and that the MD would be coming in to assess and speak with the pt. soon.
[2023-03-21] MEDS: Docusate Sodium 100 MG CAP PO ×2 (08:58→20:10)
[2023-03-21] MEDS: Normal Saline 500 ML 100 ML IV (10:09)
[2023-03-21 10:10] LABS: Abs Immature Grans 0.06 10^3/uL (0.0-0.06); Absolute Basophil Count 0.04 10^3/uL (0.0-0.2); Absolute Eosinophil Count 0.18 10^3/uL (0.0-0.7); Absolute Lymphocyte Count 1.51 10^3/uL (1.2-3.4); Absolute Monocyte Count 0.73 10^3/uL (0.1-0.8); Absolute Neutrophil Count 12.16 10^3/uL (1.2-6.7); Basophils % 0.3; Eosinophils % 1.2; HCT 28.1 % (40.0-50.0); HGB 8.8 g/dL (13.5-17.5); Immature Grans % 0.4; Lymphocytes % 10.3; MCH 27.5 pg (27.0-33.0); MCHC 31.3 % (32.0-36.0); MCV 88 fL (80-95); MPV 8.8 fL (8.0-11.0); Neutrophils % 82.8; Platelet Count 351 10^3/uL (130-400); RDW 15.6 % (11.8-14.1); WBC 14.68 10^3/uL (4.4-10.8)
--- NOTE | 2023-03-21 11:01 | W.ANESEPD ---
Epidural/Spinal Daily Note Date Performed: 03/21/23 Assessment Time: 11:02 Patient Location: Med/Surg Catheter Type in Place: Epidural Catheter Dressing Assessment: Dressing intact with good adherence Catheter Assessment: Catheter Labeled, Intact and Functioning and Planned Removal, team aware, Anticoagulant Therapy Addressed Previous Catheter Depth Noted (cm): 11 Current Catheter Depth (cm): 11 Current Medication Infusion: Ropivacaine 0.1% with Fentanyl 2mcg/ml Current Maintenance Infusion Rate (ml/hour): 0 Current PCEA Bolus Dose (ml): 0 Current Pain Score (0-10): 3 Medication Infusion Stopped, Catheter Removal Planned: Yes Sensory / Motor Block Comments: Motor and Snesory intact. New Bolus Given or Change in Infusion Made: No Daily Management Comments: Pt. would like the epidural removed. We discussed that this can not be safely done until 1530 today given his last dose of lovenox and possibility of spinal hematoma with resultant paraplegia. Ronaldo is on board with the plan. Th epidural catheter is capped. I will remove catheter at 1530 after a discussion with Ronaldo. If I am unable, RN will remove catheter, ensuring tip is intact and that patient is comfortable with no concerns prior to removal. Pt. RN is on board with this plan. Completed By: Troy Malone
--- NOTE | 2023-03-21 11:07 | W.PM.PROGNOT ---
Date of Service Date of service: 03/21/23 Time of Service: 11:07 Assessment and Plan Assessment and plan (1) Colon obstruction: Status: Acute Assessment and plan: POD #2 s/p diverting loop colostomy for obstructing anal squamous cell cancer I had another 30 minute conversation with Ronaldo regarding the fact that at this time I do not feel that It would be safe to let him go home. Although his WBC count is elevated, it is trending down, and we are unable to set up Home Health to assist with ostomy care and ostomy supplies until tomorrow. He seems depressed as well. He is not interested in a Nicotine patch. I have asked Paliative care to meet with him to assist with goals of care. Home Health note tomorrow Continue with High Protein diet will switch to po antibiotics, po pain meds Will need antibiotics for a while to keep the infection under control around his anus (2) Transportation insecurity due to lack of route sales delivery driver's license: Status: Acute (3) Housing insecurity: Status: Acute (4) Food insecurity: Status: Acute (5) Anal squamous cell carcinoma: Status: Acute (6) COPD (chronic obstructive pulmonary disease): Status: Chronic (7) Hypoalbuminemia due to protein-calorie malnutrition: Status: Acute (8) Microcytic anemia: Status: Acute (9) ETOH abuse: Status: Chronic (10) Smoker: Status: Acute Subjective Subjective Interval history since last seen: Mr. Esqueda would like to go home. He is upset about the sanchez and the epidural. The epidural was stopped this am at 930 due to increased numbness in his left lower extremity. He wants to smoke and is upset that we wont let him. He has been afebrile overnight He is eating Exam Const General: cooperative, comfortable and no acute distress Nutritional Appearance: thin Orientation: alert and oriented x3 HENMT Head: normocephalic and atraumatic Resp Effort & Inspection: normal respiratory effort Auscultation: clear to auscultation bilaterally Cardio Rate: regular rate Rhythm: regular rhythm GI Inspection: normal to inspection Palpation: soft, no hepatosplenomegaly and other (ostomy- good stool output) Objective Last Vital Signs Temp 99.0 F 03/21/23 10:40 Pulse 69 03/21/23 10:40 Resp 19 03/21/23 10:40 BP 100/56 L 03/21/23 10:40 Pulse Ox 96 03/21/23 10:40 Laboratory Results - last 24 hr 03/21/23 10:05 WBC 14.68 H RBC 3.20 L Hgb 8.8 L Hct 28.1 L MCV 88 MCH 27.5 MCHC 31.3 L RDW 15.6 H Plt Count 351 MPV 8.8 Immature Gran % 0.4 Neutrophils % 82.8 Lymphocytes % 10.3 Monocytes % 5.0 Eosinophils % 1.2 Basophils % 0.3 Nucleated RBC % 0.0 Absolute Neutrophils 12.16 H Absolute Lymphocytes 1.51 Absolute Monocytes 0.73 Absolute Eosinophils 0.18 Absolute Basophils 0.04 Time Spent with Patient Time Spent with Patient: 35-49 minutes Time was spent: preparing to see the patient(eg.review tests), obtaining and/or reviewing separately otained hiistory, ordering medications,tests, procedures, indepentently interpreting results, counseling the patient and care coordination
[2023-03-21] MEDS: metroNIDAZOLE 500 MG TAB PO ×2 (11:48→20:10)
--- NOTE | 2023-03-21 14:09 | PT.INNT ---
PT Notes Visit Reasons: Obstructing anal cancer pt declines PT. States he is able to and has been walking around his room t/o the day. He reports going home tomorrow.
--- NOTE | 2023-03-21 15:39 | W.ANESNEU ---
Epidural/Spinal Cath. Removal Date Performed: 03/21/23 Procedure Time: 15:40 Catheter Removal Type: Epidural Catheter Procedure Location: Med/Surg Patient Position: Right Lateral Decubitus Catheter Removal Procedure: Dressing Removed, Catheter Removed without Resistance, Catheter Tip Intact and Dressing Applied Paresthesia: None Procedure Tolerated: No Complications and Patient tolerated well Procedure Outcome: Successful Procedure Comment:: Motor 5/5 with normal sensation. Pain is 3/10. Performed By: Troy Malone
[2023-03-21] MEDS: oxyCODONE 5 MG TAB PO ×2 (16:27→23:43)
[2023-03-21] MEDS: Acetaminophen 325 MG TAB 650 MG PO (16:27)
[2023-03-21] MEDS: Ibuprofen 600 MG TAB PO (18:18)
[2023-03-21] MEDS: Ciprofloxacin 500 MG TAB PO (20:10)
[2023-03-21] MEDS: Famotidine 20 MG TAB PO (20:10)
[2023-03-22] MEDS: metroNIDAZOLE 500 MG TAB PO (04:24)
[2023-03-22] MEDS: Enoxaparin 40 MG/0.4 ML SYR SC (04:24)
[2023-03-22] MEDS: oxyCODONE 5 MG TAB PO (04:29)
[2023-03-22 06:46] LABS: HCT 27.1 % (40.0-50.0); HGB 8.7 g/dL (13.5-17.5); MCH 27.2 pg (27.0-33.0); MCHC 32.1 % (32.0-36.0); MCV 85 fL (80-95); Platelet Count 344 10^3/uL (130-400); RDW 15.6 % (11.8-14.1); RDW-SD 48.3 fL; WBC 12.01 10^3/uL (4.4-10.8)
--- NOTE | 2023-03-22 07:03 | PDOC.HHF2F ---
Home Health Referral Home Health Orders Clinical synopsis of why skilled professionals are needed: Patient has an obstructing anal cancer and is s/p creation of a loop diverticng colostomy Medical diagnosis necessitation home health referral: new ostomy Registered Nurse: Check all that apply Instruct on new or changed medication(s)/assess compliance: Ordered (new antibiotics) Instruct on ostomy care: Ordered (needs assistance with ostomy care, teaching) Assess for exacerbation of medical condition, instruct patient/caregivers on signs and symptoms to report for early detection: Ordered Encounter Date and Reason: I certify that a FTF encounter for this patient was performed on March 22, 2023 and that such encounter was related to the primary reason the patient requires home health services. The encounter was conducted in the following manner: By me as the certifying physician, AMPLIFIER MECHANIC, PA or By an inpatient physician, AMPLIFIER MECHANIC or PA during an inpatient stay who communicated findings to me, Certification And Authentication I certify that I composed the above information based on my clinical judgment relating to this patient's medical condition and, if applicable, clinical findings communicated to me by the NPP or inpatient physician who performed the FTF encounter. Name of Provider that will be monitoring home health services: Chelsea Driver
[2023-03-22 07:59] VITALS: BP 90/48; BP 91/50; PULSE 79; RESP 16; TEMP 36.8; O2SAT 97
--- NOTE | 2023-03-22 08:05 | W.PM.DS.N ---
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's license: Status: Acute (3) Housing insecurity: Status: Acute (4) Food insecurity: Status: Acute (5) Anal squamous cell carcinoma: Status: Acute (6) COPD (chronic obstructive pulmonary disease): Status: Chronic (7) Hypoalbuminemia due to protein-calorie malnutrition: Status: Acute (8) Microcytic anemia: Status: Acute (9) ETOH abuse: Status: Chronic (10) Smoker: Status: Acute Discharge Plan Disposition Patient Disposition: Home W/Home Health Services Condition: Fair Discharge Details Reason For Visit: Obstructing anal cancer Admit Date/Time: 03/19/23 13:08 Admit Provider: Chelsea Driver Attending Provider: Chelsea Driver Primary Care Provider: Sha Ramos Hospital Course Hospital Course: Juanito is a 62-year-old male with anal carcinoma. He came to the hospital with signs of bowel obstruction, and underwent a diverting loop sigmoid colostomy. His postoperative course was uncomplicated, and he was suitable for discharge home with the assistance of home health services on the . Home Meds and New Rx's Prescriptions: New ciprofloxacin HCl 500 mg Tablet 500 mg PO BID Qty: 20 0RF Rx Instructions: Take 1 tablet by mouth in the morning, and 1 tablet by mouth in the evening metronidazole 500 mg Tablet 500 mg PO Q8H Qty: 30 0RF docusate sodium [Colace] 100 mg Capsule 100 mg PO BID Qty: 60 0RF Rx Instructions: Take 1 tablet by mouth in the morning, and 1 tablet by mouth in the evening. Continued Secura Protective (zinc oxide) 10 % cream 1 applic topical BID-QID PRN (Reason: skin irritation) Qty: 78 6RF oxycodone 5 mg tablet 5 mg PO Q4H MDD 6 PRN (Reason: pain) Qty: 20 0RF Discharge Instructions Instructions: Colostomy Care (GEN) Additional Instructions: 1. Resume all of your medications. 2. Okay to use tylenol and ibuprofen over the counter as needed for pain. You can also use the oxycodone that you have at home for more severe pain if you need. 3. Home health assistance has been arranged to help provide care for your new colostomy. 4. Be sure to wash the wounds on your backside with warm soapy water every day, and bandage as needed.. 5. No heavy lifting until we see you in the office. 6.Call the office (or go directly to the emergency room after hours) if you notice any of the following: Develop chills (warm to touch), or if you have a thermometer and your temperature is above 101 Difficulty breathing or difficultly swallowing Persistent vomiting Any bleeding ? exceeding one tablespoon 7. Call your physician if the site where your intravenous was started becomes red, swollen, painful, and warm to touch. 8. We have added new prescriptions for medications called ciprofloxacin and metronidazole. These are antibiotics. Please take them as instructed Stand Alone Forms: Nursing Discharge Form Referrals: Sha Ramos [Primary Care Provider] - 04/09/23 4:00 pm Chelsea Driver DO [OSTEOPATHIC DOCTOR] - 03/30/23 9:30 am Activity:: Activity as Tolerated Equipment/Supplies:: 1 week of colostomy suppl Diet:: As Tolerated DS: Summary Time Spent with Patient providing and/or coordinating discharge services: Greater than 30 minutes Status at Discharge Functional status at discharge: independent ambulation Overall status at discharge: patient is back to baseline Mental Status: mental status grossly normal Speech and Movement: speech and movement normal Mood: congruent mood Affect: normal affect Exam Const General: cooperative, healthy appearing and comfortable Orientation: awake and oriented x3 Eyes General: appearance normal, both eyes and all related structures Conjunctivae: conjunctivae normal Sclera: sclerae normal Resp Effort & Inspection: normal respiratory effort and able to speak in complete sentences Cardio Jugular venous pressure: no JVD Rate: regular rate GI Inspection: non-distended Palpation: soft, no guarding, no hernias and nontender Auscultation: normal bowel sounds Other: Colostomy is healthy appearing, producing gas and stool Skin General skin exam: normal turgor Neuro General: patient alert, patient awake and patient oriented x3 Cognition: normal cognition Extrem Right lower extremity: no edema Left lower extremity: no edema Psych Mental Status: mental status grossly normal Speech and Movement: speech and movement normal Mood: congruent mood Affect: normal affect DS: Data Vitals/I&O Vitals and I&O: Vital Signs Temperature 98.3 F 03/22/23 07:59 Temperature Source Tympanic 03/22/23 07:59 Pulse 79 03/22/23 07:59 Pulse Rhythm Regular 03/22/23 05:45 Respiratory Rate 16 03/22/23 07:59 Respiratory Effort Normal 03/22/23 05:45 Respiratory Depth Normal 03/22/23 05:45 Respiratory Pattern Normal 03/22/23 05:45 Blood Pressure 91/50 L 03/22/23 07:59 Blood Pressure Position Sitting 03/19/23 10:21 Pulse Oximetry 97 03/22/23 07:59 Respiratory End-tidal CO2 28 03/19/23 16:00 Oxygen Delivery Method Room Air 03/22/23 07:59 Oxygen Flow Rate 0 03/22/23 07:59 Pain Level 5 03/22/23 04:29 Comment Charge nurse notified of pt.'s BP. Pt. denies pain at this time. 03/20/23 14:19 Intake & Output 03/21/23 03/21/23 03/22/23 11:59 23:59 11:59 Intake Total 418.667 / 1058.667 640 / 1058.667 Output Total 1550 / 2300 750 / 2300 100 / 100 Balance -1131.333 / -1241.333 -110 / -1241.333 -100 / -100 Intake: IV 298.667 / 358.667 60 / 358.667 Oral 120 / 700 580 / 700 Output: Urine 1200 / 1400 200 / 1400 Stool 350 / 900 550 / 900 100 / 100 Other: Urine Color Straw Straw Urine Appearance Clear Clear Urine Odor Normal Normal Comment Void x1 in the urinal. Patient voided to the toilet independently. Voiding Methods Urinal Toilet Data Completed and Pending Labs on day of discharge: Labs from last 24 hours 03/22/23 03/21/23 06:17 10:05 WBC 12.01 H 14.68 H RBC 3.20 L 3.20 L Hgb 8.7 L 8.8 L Hct 27.1 L 28.1 L MCV 85 88 MCH 27.2 27.5 MCHC 32.1 31.3 L RDW 15.6 H 15.6 H Plt Count 344 351 MPV 9.0 8.8 Immature Gran % 0.4 Neutrophils % 82.8 Lymphocytes % 10.3 Monocytes % 5.0 Eosinophils % 1.2 Basophils % 0.3 Nucleated RBC % 0.0 Absolute Neutrophils 12.16 H Absolute Lymphocytes 1.51 Absolute Monocytes 0.73 Absolute Eosinophils 0.18 Absolute Basophils 0.04 PFSH All Active Problems Colon obstruction (Acute) Transportation insecurity due to lack of cdl [employer] driver's license (Acute) Housing insecurity (Acute) Food insecurity (Acute) 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 COPD (chronic obstructive pulmonary disease) (Chronic) Hypoalbuminemia due to protein-calorie malnutrition (Acute) Microcytic anemia (Acute) ETOH abuse (Chronic) Smoker (Acute) Social History Smoking/Tobacco Use Status: Current every day Tobacco Type: cigarettes Smoking risk assessment performed?: Yes Alcohol Intake: current Alcohol Intake frequency: a few times a week Alcohol type: beer Drug use: Rarely Substance use type: marijuana Do you feel safe at home: Yes Do you feel safe in your relationship?: Yes Time Spent with Patient Time Spent with Patient: 45-69 minutes Time was spent: preparing to see the patient(eg.review tests), ordering medications,tests, procedures, counseling the patient and care coordination
[2023-03-22] MEDS: Docusate Sodium 100 MG CAP PO (08:24)
[2023-03-22] MEDS: Famotidine 20 MG TAB PO (08:24)
[2023-03-22] MEDS: Ciprofloxacin 500 MG TAB PO (08:24)
--- NOTE | 2023-03-22 10:53 | NUR.NOTE ---
Nursing Note: Accessed pt chart to assist Registration for the sequence of status events prior to this patient's admission.
--- NOTE | 2023-03-22 11:54 | CMDISCH_ITS ---
Date of service: 03/22/23 Time of Service: 11:55 LACE Index Scoring Tool Questions: Length of Stay (in days): 3 Was the patient admitted via the E.D.?: Yes Comorbidities: Chronic Pulmonary Disease and Any Tumor E.D. Visits: 1 Answers: Total Score: 12 Risk of Readmission: High Risk Care Management Discharge Plan Reason for Hospitalization: Obstructing Anal Cancer Discharge Plan: Ronaldo returned home today with new orders for HH RN for new ostomy care. [facility] requested that [facility] supply Ronaldo with a week's worth of ostomy supplies prior to them ordering/receiving supplies for his new ostomy. He transported home via private vehicle. He will follow up with surgical services, his PCP and discharge plan of care. Patient/Family Education Needs: Review discharge instructions and limitations, discussion of self care needs including ask me three. Services Needed at Discharge: Home Health Care Services (HH RN)
--- NOTE | 2023-03-22 18:29 | WOUNDCARE ---
Unable to see pt for wound care due to schedule conflicts. I also was informed of needing just new colostomy instructs which is in the scope of practice for any licensed nurse. Wound Care Report
--- NOTE | 2023-03-26 12:34 | PT.INDS ---
PT Notes Visit Reasons: Obstructing Anal Cancer Ronaldo was seen for PT evaluation only. He declined further PT on follow up and was demonstrating independence in his room. He was able to d/c home on 03/22/23. Please see initial evaluation dated 03/20/23 for specifics on functional mobility. Discharge from PT services in acute care setting.
== END 2023-03-22 10:15 | disposition home health service (06) | DRG 330 ==
LOC: ER 13:16 → MS 16:22
PROVIDERS: Surgery; Admitting Provider Surgery; Emergency Provider Emergency Medicine; PCP Physician Assistant; Visit Provider Surgery
PROC: 0D1 Gastrointestinal System, Bypass (ICD-10-PCS; CPT 44320; principal; 2023-03-19 12:30)
DX: C21.1 Malignant neoplasm of anal canal (principal); E46 Unspecified protein-calorie malnutrition; K56.691 Other complete intestinal obstruction; F17.210 Nicotine dependence, cigarettes, uncomplicated; F10.10 Alcohol abuse, uncomplicated; D50.9 Iron deficiency anemia, unspecified; Z68.20 Body mass index [BMI] 20.0-20.9, adult; J44.9 Chronic obstructive pulmonary disease, unspecified; Z59.41 Food insecurity
CPT/HCPCS: 44320; 36415; 71045; 76942; 80048; 80053; 85027; 96360; 97162; 99285; J1650; 74019; 85025; J1100; J1885; J2250; J2370; J2405; J2543; J2704

== ENCOUNTER 2023-03-24 02:33 | Outpatient (RCR) | payer MEDICAID, SELFPAY ==
--- NOTE | 2023-03-19 14:02 | W.NUTCONSULT ---
Date of service: 03/19/23 Time of Service: 14:02 Nutritional Consult ASSESSMENT: 62 year old male admitted with advanced anal cancer with obstruction needing colostomy for diveration while undergoing radiation/treatment. Has lost over 33 lbs in last month, PMH: COPD, ETOH/tobacco abuse, ProCal Malnutrition. Estimated Needs: BEE (1637) x 1.2 = 1952 kcal, 97 g protein, 55 g fat. NUTRITIONAL DIAGNOSIS: Protein Calorie Malnutrition in view of 20% weight loss in last 30 days INTERVENTION: If TPN considered: 4.25/D10 2000 ml, 20% lipids 250 ml providing total of 1520 kcal, 84 g protein, 55 g fat. Diet as tolerated. MONITORING AND EVALUATION: weight, po intake, labs Time Spent in Nutritional Counseling and Treatment: 0
[2023-03-24 13:21] LABS: Abs Immature Grans 0.06 10^3/uL (0.0-0.06); Absolute Basophil Count 0.09 10^3/uL (0.0-0.2); Absolute Eosinophil Count 0.87 10^3/uL (0.0-0.7); Absolute Lymphocyte Count 2.16 10^3/uL (1.2-3.4); Absolute Monocyte Count 0.76 10^3/uL (0.1-0.8); Absolute Neutrophil Count 10.77 10^3/uL (1.2-6.7); Basophils % 0.6; Eosinophils % 5.9; HCT 35.1 % (40.0-50.0); Immature Grans % 0.4; Lymphocytes % 14.7; MCHC 31.3 % (32.0-36.0); MCV 86 fL (80-95); MPV 9.2 fL (8.0-11.0); Monocytes % 5.2; Neutrophils % 73.2; Platelet Count 518 10^3/uL (130-400); RBC 4.08 10^6/uL (4.36-5.78); RDW 15.7 % (11.8-14.1); RDW-SD 49.2 fL; WBC 14.71 10^3/uL (4.4-10.8)
[2023-03-24 13:34] LABS: ALT 30 U/L (16-63); AST 36 U/L (15-37); Albumin 2.6 g/dL (3.4-5.0); Alkaline Phosphatase 107 U/L (46-116); Anion Gap 6.7 mmol/L (3-11); BUN 7 mg/dL (7-18); Bilirubin, Total 0.3 mg/dL (0.2-1.0); CO2 28.3 mmol/L (21.0-32.0); Calcium 9.3 mg/dL (8.5-10.1); Chloride 102 mmol/L (98-107); Estimated GFR 85.63 (mL/min/1.73m2); Glucose 102 mg/dL (74-106); Potassium 3.5 mmol/L (3.5-5.1); Sodium 137 mmol/L (136-145); Total Protein 8.6 g/dL (6.4-8.2)
--- NOTE | 2023-03-24 14:15 | DI.RAD_ITS ---
Exam(s) XR PORTABLE CHEST AP POST LINE EXAM: XR PORTABLE CHEST AP POST LINE CLINICAL HISTORY: PICC PLACEMENT TECHNIQUE: 2D digital imaging was performed. COMPARISON: CR XR PORTABLE CHEST AP POST LINE from 03/19/2023 FINDINGS: Previously noted right-sided central line has been removed. A PICC line has been inserted via the ri ght arm. The tip lies in the superior vena cava. LUNGS: Clear. No pleural abnormality seen. HEART: Normal size. AORTA: Normal diameter. BONES: Unremarkable for age. Soft tissues: Unremarkable. IMPRESSION: Satisfactory placement of PICC line. DATA REPOSITORY: RADIATION DOSE DELIVERED:
== END 2023-04-07 23:59 | disposition home or self-care (01) ==
LOC: INF 02:33
PROVIDERS: PCP Physician Assistant; Visit Provider Internal Medicine Hematology & Oncology
DX: C21.0 Malignant neoplasm of anus, unspecified (principal)
CPT/HCPCS: 36415; 36569; 71045; 80053; 85025

== ENCOUNTER 2023-04-01 03:15 | Outpatient (CLI) | payer MEDICAID, SELFPAY ==
[2023-04-01 13:59] LABS: Abs Immature Grans 0.08 10^3/uL (0.0-0.06); Absolute Basophil Count 0.05 10^3/uL (0.0-0.2); Absolute Eosinophil Count 0.11 10^3/uL (0.0-0.7); Absolute Lymphocyte Count 0.68 10^3/uL (1.2-3.4); Absolute Neutrophil Count 8.74 10^3/uL (1.2-6.7); Basophils % 0.5; Eosinophils % 1.1; Immature Grans % 0.8; Lymphocytes % 6.8; MCH 27.5 pg (27.0-33.0); MCHC 31.3 % (32.0-36.0); MCV 88 fL (80-95); MPV 8.9 fL (8.0-11.0); Neutrophils % 86.8; Platelet Count 352 10^3/uL (130-400); RBC 3.64 10^6/uL (4.36-5.78); RDW 16.5 % (11.8-14.1); RDW-SD 51.6 fL; WBC 10.06 10^3/uL (4.4-10.8)
[2023-04-01 14:39] LABS: ALT 22 U/L (16-63); AST 32 U/L (15-37); Albumin 2.7 g/dL (3.4-5.0); Alkaline Phosphatase 86 U/L (46-116); Anion Gap 6.3 mmol/L (3-11); BUN 8 mg/dL (7-18); Bilirubin, Total 0.3 mg/dL (0.2-1.0); CO2 28.7 mmol/L (21.0-32.0); CREATININE 0.9 mg/dL (0.70-1.30); Calcium 9.1 mg/dL (8.5-10.1); Chloride 101 mmol/L (98-107); Estimated GFR 97.17 (mL/min/1.73m2); Glucose 103 mg/dL (74-106); Potassium 3.9 mmol/L (3.5-5.1); Sodium 136 mmol/L (136-145); Total Protein 8.4 g/dL (6.4-8.2)
== END 2023-04-01 03:16 | disposition home or self-care (01) ==
LOC: LBO 03:15
PROVIDERS: PCP Physician Assistant; Visit Provider Internal Medicine Hematology & Oncology
DX: C21.0 Malignant neoplasm of anus, unspecified (principal)
CPT/HCPCS: 36415; 80053; 85025

== ENCOUNTER 2023-04-08 04:40 | Outpatient (CLI) | payer MEDICAID, SELFPAY ==
[2023-04-08 12:52] LABS: Abs Immature Grans 0.02 10^3/uL (0.0-0.06); Absolute Basophil Count 0.01 10^3/uL (0.0-0.2); Absolute Eosinophil Count 0.38 10^3/uL (0.0-0.7); Absolute Lymphocyte Count 0.57 10^3/uL (1.2-3.4); Absolute Monocyte Count 0.58 10^3/uL (0.1-0.8); Absolute Neutrophil Count 3.12 10^3/uL (1.2-6.7); Basophils % 0.2; Eosinophils % 8.1; HCT 33.2 % (40.0-50.0); HGB 10.5 g/dL (13.5-17.5); Immature Grans % 0.4; Lymphocytes % 12.2; MCH 27.9 pg (27.0-33.0); MCHC 31.6 % (32.0-36.0); MCV 88 fL (80-95); MPV 7.9 fL (8.0-11.0); Monocytes % 12.4; Neutrophils % 66.7; Platelet Count 196 10^3/uL (130-400); RBC 3.77 10^6/uL (4.36-5.78); RDW 18.2 % (11.8-14.1); RDW-SD 54.7 fL; WBC 4.68 10^3/uL (4.4-10.8)
[2023-04-08 13:11] LABS: ALT 24 U/L (16-63); AST 33 U/L (15-37); Albumin 2.6 g/dL (3.4-5.0); Alkaline Phosphatase 85 U/L (46-116); Anion Gap 5.7 mmol/L (3-11); BUN 8 mg/dL (7-18); Bilirubin, Total 0.2 mg/dL (0.2-1.0); CO2 30.3 mmol/L (21.0-32.0); CREATININE 0.9 mg/dL (0.70-1.30); Calcium 8.9 mg/dL (8.5-10.1); Chloride 101 mmol/L (98-107); Estimated GFR 97.17 (mL/min/1.73m2); Glucose 79 mg/dL (74-106); Potassium 3.8 mmol/L (3.5-5.1); Sodium 137 mmol/L (136-145); Total Protein 7.9 g/dL (6.4-8.2)
== END 2023-04-08 04:41 | disposition home or self-care (01) ==
LOC: LBO 04:40
PROVIDERS: PCP Physician Assistant; Visit Provider Internal Medicine Hematology & Oncology
DX: C21.0 Malignant neoplasm of anus, unspecified (principal)
CPT/HCPCS: 36415; 80053; 85025

== ENCOUNTER 2023-04-15 15:27 | Outpatient (CLI) | payer MEDICAID, SELFPAY ==
[2023-04-15 16:11] LABS: Abs Immature Grans 0.06 10^3/uL (0.0-0.06); Absolute Basophil Count 0.02 10^3/uL (0.0-0.2); Absolute Eosinophil Count 0.31 10^3/uL (0.0-0.7); Absolute Lymphocyte Count 0.46 10^3/uL (1.2-3.4); Absolute Monocyte Count 0.61 10^3/uL (0.1-0.8); Absolute Neutrophil Count 3.99 10^3/uL (1.2-6.7); Basophils % 0.4; Eosinophils % 5.7; HCT 35.1 % (40.0-50.0); HGB 10.9 g/dL (13.5-17.5); Immature Grans % 1.1; Lymphocytes % 8.4; MCH 28.2 pg (27.0-33.0); MCHC 31.1 % (32.0-36.0); MCV 91 fL (80-95); Monocytes % 11.2; Neutrophils % 73.2; Platelet Count 223 10^3/uL (130-400); RBC 3.86 10^6/uL (4.36-5.78); RDW-SD 64.5 fL; WBC 5.45 10^3/uL (4.4-10.8)
[2023-04-15 16:51] LABS: ALT 33 U/L (16-63); AST 43 U/L (15-37); Albumin 2.7 g/dL (3.4-5.0); Alkaline Phosphatase 81 U/L (46-116); Anion Gap 5.9 mmol/L (3-11); BUN 8 mg/dL (7-18); Bilirubin, Total 0.2 mg/dL (0.2-1.0); CO2 30.1 mmol/L (21.0-32.0); CREATININE 0.8 mg/dL (0.70-1.30); Calcium 8.5 mg/dL (8.5-10.1); Chloride 104 mmol/L (98-107); Estimated GFR 100.69 (mL/min/1.73m2); Glucose 97 mg/dL (74-106); Potassium 3.5 mmol/L (3.5-5.1); Sodium 140 mmol/L (136-145); Total Protein 7.8 g/dL (6.4-8.2)
== END 2023-04-15 15:28 | disposition home or self-care (01) ==
LOC: LBO 15:29
PROVIDERS: PCP Physician Assistant; Visit Provider Internal Medicine Hematology & Oncology
DX: C21.0 Malignant neoplasm of anus, unspecified (principal)
CPT/HCPCS: 36415; 80053; 85025

== ENCOUNTER 2023-04-21 03:07 | Outpatient (RCR) | payer MEDICAID, SELFPAY ==
--- NOTE | 2023-04-21 11:30 | DI.RAD_ITS ---
Exam(s) XR PORTABLE CHEST AP POST LINE EXAM: XR PORTABLE CHEST AP POST LINE CLINICAL HISTORY: confirm PICC placement, new line room 205. TECHNIQUE: 2D digital imaging was performed. COMPARISON: No exams were available for comparison FINDINGS: Single AP portable view. This was the 1st image post PICC line placement Heart size is upper normal. The mediastinum is not widened. Lungs are clear. No infiltrates nor obvious pleural effusions. Distal tip of the PICC line is in the upper right atrium. IMPRESSION: Distal aspect of the PICC line is in the upper half of the right atrium. Discussed by phone PICC line provider. DATA REPOSITORY: RADIATION DOSE DELIVERED:
--- NOTE | 2023-04-21 12:30 | DI.RAD_ITS ---
Exam(s) XR PORTABLE CHEST AP POST LINE EXAM: XR PORTABLE CHEST AP POST LINE CLINICAL HISTORY: POST PICC PLACEMENT. TECHNIQUE: 2D digital imaging was performed. COMPARISON: CR XR PORTABLE CHEST AP POST LINE from 03/24/2023 FINDINGS: Single AP portable view. Heart size is upper normal. The mediastinum is not widened. Lungs are clear. No infiltrates nor obvious pleural effusions. There are 3 separate portable chest x-rays performed 1 after the other for visualization of the posit ion of the newly placed PICC line. First image reveals the PICC line in the upper right atrium. The subsequent images reveals the PICC line distal tip in the SVC following repositioning. IMPRESSION: PICC line in satisfactory position on final image. Discussed by phone real-time with PICC line provider DATA REPOSITORY: RADIATION DOSE DELIVERED:
--- NOTE | 2023-04-21 12:30 | DI.RAD_ITS ---
Exam(s) XR PORTABLE CHEST AP POST LINE EXAM: XR PORTABLE CHEST AP POST LINE CLINICAL HISTORY: POST PICC LINE PLACEMENT. TECHNIQUE: 2D digital imaging was performed. COMPARISON: CR XR PORTABLE CHEST AP POST LINE from 04/21/2023 FINDINGS: Single AP portable view. Labelled #3 Heart size normal. Mediastinum is not widened. Distal tip of the PICC line is in the mid-lower SVC. The wire within the PICC line is retracted approximately 4 cm from the true position of the distal tip of the less stent PICC catheter. No confluent infiltrates nor pleural effusions. No pneumothorax. IMPRESSION: PICC line is in satisfactory position in the SVC. DATA REPOSITORY: RADIATION DOSE DELIVERED:
[2023-04-21 12:54] LABS: Abs Immature Grans 0.03 10^3/uL (0.0-0.06); Absolute Basophil Count 0.02 10^3/uL (0.0-0.2); Absolute Lymphocyte Count 0.45 10^3/uL (1.2-3.4); Absolute Monocyte Count 0.52 10^3/uL (0.1-0.8); Absolute Neutrophil Count 4.63 10^3/uL (1.2-6.7); Basophils % 0.3; HCT 30.9 % (40.0-50.0); HGB 10.1 g/dL (13.5-17.5); Immature Grans % 0.5; Lymphocytes % 7.6; MCH 28.9 pg (27.0-33.0); MCHC 32.7 % (32.0-36.0); MCV 88 fL (80-95); MPV 8.8 fL (8.0-11.0); Monocytes % 8.7; Neutrophils % 77.9; Platelet Count 190 10^3/uL (130-400); RDW 20.7 % (11.8-14.1); WBC 5.95 10^3/uL (4.4-10.8)
[2023-04-21 13:11] LABS: ALT 49 U/L (16-63); AST 60 U/L (15-37); Albumin 2.7 g/dL (3.4-5.0); Alkaline Phosphatase 87 U/L (46-116); Anion Gap 2.5 mmol/L (3-11); BUN 10 mg/dL (7-18); Bilirubin, Total 0.3 mg/dL (0.2-1.0); CO2 28.5 mmol/L (21.0-32.0); CREATININE 0.9 mg/dL (0.70-1.30); Calcium 8.3 mg/dL (8.5-10.1); Chloride 104 mmol/L (98-107); Estimated GFR 97.17 (mL/min/1.73m2); Glucose 92 mg/dL (74-106); Potassium 3.3 mmol/L (3.5-5.1); Sodium 135 mmol/L (136-145); Total Protein 7.2 g/dL (6.4-8.2)
== END 2023-05-07 23:59 | disposition home or self-care (01) ==
LOC: INF 03:07
PROVIDERS: PCP Physician Assistant; Visit Provider Internal Medicine Hematology & Oncology
DX: C21.0 Malignant neoplasm of anus, unspecified (principal)
CPT/HCPCS: 36569; 71045; 80053; 85025

== ENCOUNTER 2023-04-29 16:09 | Outpatient (CLI) | payer MEDICAID, SELFPAY ==
[2023-04-29 15:04] LABS: Abs Immature Grans 0.02 10^3/uL (0.0-0.06); Absolute Basophil Count 0.01 10^3/uL (0.0-0.2); Absolute Eosinophil Count 0.29 10^3/uL (0.0-0.7); Absolute Lymphocyte Count 0.22 10^3/uL (1.2-3.4); Absolute Monocyte Count 0.35 10^3/uL (0.1-0.8); Basophils % 0.2; Eosinophils % 6.8; HCT 30.8 % (40.0-50.0); Immature Grans % 0.5; Lymphocytes % 5.1; MCH 29.8 pg (27.0-33.0); MCHC 32.5 % (32.0-36.0); MCV 92 fL (80-95); MPV 8.5 fL (8.0-11.0); Monocytes % 8.2; Neutrophils % 79.2; Platelet Count 154 10^3/uL (130-400); RBC 3.36 10^6/uL (4.36-5.78); RDW 22.1 % (11.8-14.1); RDW-SD 70.4 fL; WBC 4.29 10^3/uL (4.4-10.8)
[2023-04-29 15:18] LABS: Anisocytosis 2+; Diff Comment Diff Reviewed
[2023-04-29 15:39] LABS: ALT 32 U/L (16-63); AST 32 U/L (15-37); Albumin 2.8 g/dL (3.4-5.0); Alkaline Phosphatase 94 U/L (46-116); Anion Gap 6.9 mmol/L (3-11); BUN 8 mg/dL (7-18); Bilirubin, Total 0.3 mg/dL (0.2-1.0); CO2 29.1 mmol/L (21.0-32.0); CREATININE 0.8 mg/dL (0.70-1.30); Calcium 8.5 mg/dL (8.5-10.1); Chloride 105 mmol/L (98-107); Estimated GFR 100.69 (mL/min/1.73m2); Glucose 93 mg/dL (74-106); Potassium 3.4 mmol/L (3.5-5.1); Sodium 141 mmol/L (136-145); Total Protein 7.1 g/dL (6.4-8.2)
== END 2023-04-29 16:10 | disposition home or self-care (01) ==
LOC: LBO 16:12
PROVIDERS: PCP Physician Assistant; Visit Provider Internal Medicine Hematology & Oncology
DX: C21.0 Malignant neoplasm of anus, unspecified (principal)
CPT/HCPCS: 36415; 80053; 85025

== ENCOUNTER 2023-05-07 01:32 | Outpatient (CLI) | payer MEDICAID, SELFPAY ==
[2023-05-07 11:40] LABS: Abs Immature Grans 0.02 10^3/uL (0.0-0.06); Absolute Basophil Count 0.01 10^3/uL (0.0-0.2); Absolute Eosinophil Count 0.05 10^3/uL (0.0-0.7); Absolute Lymphocyte Count 0.23 10^3/uL (1.2-3.4); Absolute Monocyte Count 0.71 10^3/uL (0.1-0.8); Absolute Neutrophil Count 2.66 10^3/uL (1.2-6.7); Basophils % 0.3; Eosinophils % 1.4; HCT 32.6 % (40.0-50.0); HGB 10.7 g/dL (13.5-17.5); Immature Grans % 0.5; Lymphocytes % 6.3; MCH 30.1 pg (27.0-33.0); MCHC 32.8 % (32.0-36.0); MCV 92 fL (80-95); MPV 8.7 fL (8.0-11.0); Monocytes % 19.3; Neutrophils % 72.2; Platelet Count 160 10^3/uL (130-400); RBC 3.55 10^6/uL (4.36-5.78); RDW-SD 74.4 fL; WBC 3.68 10^3/uL (4.4-10.8)
[2023-05-07 11:57] LABS: ALT 29 U/L (16-63); AST 33 U/L (15-37); Albumin 2.8 g/dL (3.4-5.0); Alkaline Phosphatase 109 U/L (46-116); Anion Gap 4.5 mmol/L (3-11); BUN 7 mg/dL (7-18); Bilirubin, Total 0.3 mg/dL (0.2-1.0); CO2 32.5 mmol/L (21.0-32.0); CREATININE 0.9 mg/dL (0.70-1.30); Calcium 8.6 mg/dL (8.5-10.1); Chloride 101 mmol/L (98-107); Estimated GFR 97.17 (mL/min/1.73m2); Glucose 102 mg/dL (74-106); Potassium 3.4 mmol/L (3.5-5.1); Sodium 138 mmol/L (136-145); Total Protein 7.4 g/dL (6.4-8.2)
[2023-05-07 12:12] LABS: Anisocytosis 2+; Diff Comment RBC Morph Reviewed
== END 2023-05-07 01:33 | disposition home or self-care (01) ==
LOC: LBO 01:33
PROVIDERS: PCP Physician Assistant; Visit Provider Internal Medicine Hematology & Oncology
DX: C21.0 Malignant neoplasm of anus, unspecified (principal)
CPT/HCPCS: 36415; 80053; 85025

== ENCOUNTER 2023-06-04 01:22 | Outpatient (CLI) | payer MEDICAID, SELFPAY ==
[2023-06-04 11:56] LABS: Abs Immature Grans 0.03 10^3/uL (0.0-0.06); Absolute Basophil Count 0.02 10^3/uL (0.0-0.2); Absolute Eosinophil Count 0.08 10^3/uL (0.0-0.7); Absolute Monocyte Count 0.61 10^3/uL (0.1-0.8); Basophils % 0.4; Eosinophils % 1.5; HCT 36.7 % (40.0-50.0); HGB 11.9 g/dL (13.5-17.5); Immature Grans % 0.6; Lymphocytes % 7.6; MCH 31.1 pg (27.0-33.0); MCHC 32.4 % (32.0-36.0); MCV 96 fL (80-95); MPV 8.7 fL (8.0-11.0); Monocytes % 11.6; Neutrophils % 78.3; Platelet Count 164 10^3/uL (130-400); RBC 3.83 10^6/uL (4.36-5.78); RDW 21.3 % (11.8-14.1); RDW-SD 73.3 fL; WBC 5.24 10^3/uL (4.4-10.8)
[2023-06-04 12:11] LABS: ALT 22 U/L (16-63); AST 23 U/L (15-37); Alkaline Phosphatase 90 U/L (46-116); Anion Gap 6.2 mmol/L (3-11); BUN 11 mg/dL (7-18); Bilirubin, Total 0.2 mg/dL (0.2-1.0); CO2 27.8 mmol/L (21.0-32.0); CREATININE 0.9 mg/dL (0.70-1.30); Calcium 8.7 mg/dL (8.5-10.1); Chloride 108 mmol/L (98-107); Estimated GFR 97.17 (mL/min/1.73m2); Glucose 103 mg/dL (74-106); Potassium 3.7 mmol/L (3.5-5.1); Sodium 142 mmol/L (136-145); Total Protein 6.7 g/dL (6.4-8.2)
== END 2023-06-04 01:23 | disposition home or self-care (01) ==
PROVIDERS: PCP Physician Assistant; Visit Provider Internal Medicine Hematology & Oncology
DX: C21.0 Malignant neoplasm of anus, unspecified (principal)
CPT/HCPCS: 36415; 80053; 85025

== ENCOUNTER 2023-06-10 03:41 | Outpatient (CLI) | payer MEDICAID, SELFPAY ==
--- NOTE | 2023-06-10 | DI.RAD_ITS ---
Exam(s) XR HUMERUS RT XR SHOULDER RT COMPLETE 2+V EXAM: XR HUMERUS RT CLINICAL HISTORY: RT SHOULDER PAIN, M25.511, H/O ANAL CANCER, RT UPPER ARM PAIN. TECHNIQUE: 2D digital imaging was performed. COMPARISON: CR XR SHOULDER RT COMPLETE 2+V from 06/10/2023 FINDINGS: BONES: No acute fracture is present. No bony destructive lesion is seen. Joints: Spurring at the AC joint. Glenohumeral joint space is maintained. Minimal spurring at the g lenoid. Visualized portion of elbow is unremarkable. SOFT TISSUE: Small calcification seen near greater tuberosity could indicate calcific tendinitis. Vi sualized portions of the right lung appears clear. IMPRESSION: No evidence of suspicious bony lesion.. Calcific tendinitis. Mild degenerative changes. DATA REPOSITORY: RADIATION DOSE DELIVERED:
== END 2023-06-10 04:01 ==
LOC: DI 03:41
PROVIDERS: PCP Physician Assistant; Visit Provider Internal Medicine Hematology & Oncology
DX: M25.511 Pain in right shoulder (principal); M65.221 Calcific tendinitis, right upper arm
CPT/HCPCS: 73030; 73060

== ENCOUNTER 2023-06-16 02:43 | Outpatient (CLI) | payer MEDICAID, SELFPAY ==
[2023-06-16 11:56] LABS: Abs Immature Grans 0.08 10^3/uL (0.0-0.06); Absolute Basophil Count 0.04 10^3/uL (0.0-0.2); Absolute Eosinophil Count 0.07 10^3/uL (0.0-0.7); Absolute Lymphocyte Count 0.57 10^3/uL (1.2-3.4); Absolute Monocyte Count 0.88 10^3/uL (0.1-0.8); Absolute Neutrophil Count 7.37 10^3/uL (1.2-6.7); Basophils % 0.4; Eosinophils % 0.8; HCT 38.5 % (40.0-50.0); HGB 12.6 g/dL (13.5-17.5); Immature Grans % 0.9; Lymphocytes % 6.3; MCH 31.5 pg (27.0-33.0); MCHC 32.7 % (32.0-36.0); MCV 96 fL (80-95); MPV 8.8 fL (8.0-11.0); Monocytes % 9.8; Neutrophils % 81.8; Platelet Count 171 10^3/uL (130-400); RDW 18.6 % (11.8-14.1); WBC 9.01 10^3/uL (4.4-10.8)
[2023-06-16 12:20] LABS: ALT 21 U/L (16-63); AST 23 U/L (15-37); Alkaline Phosphatase 86 U/L (46-116); Anion Gap 6.6 mmol/L (3-11); BUN 9 mg/dL (7-18); Bilirubin, Total 0.5 mg/dL (0.2-1.0); CO2 29.4 mmol/L (21.0-32.0); CREATININE 1.1 mg/dL (0.70-1.30); Calcium 8.8 mg/dL (8.5-10.1); Chloride 105 mmol/L (98-107); Estimated GFR 76.37 (mL/min/1.73m2); Glucose 100 mg/dL (74-106); Potassium 3.5 mmol/L (3.5-5.1); Sodium 141 mmol/L (136-145); Total Protein 6.6 g/dL (6.4-8.2)
== END 2023-06-16 02:44 | disposition home or self-care (01) ==
LOC: LBO 02:43
PROVIDERS: PCP Physician Assistant; Visit Provider Internal Medicine Hematology & Oncology
DX: C21.0 Malignant neoplasm of anus, unspecified (principal)
CPT/HCPCS: 36415; 80053; 85025

== ENCOUNTER 2023-06-30 04:05 | Outpatient (CLI) | payer MEDICAID, SELFPAY ==
[2023-06-30 11:59] LABS: Abs Immature Grans 0.07 10^3/uL (0.0-0.06); Absolute Basophil Count 0.03 10^3/uL (0.0-0.2); Absolute Lymphocyte Count 0.52 10^3/uL (1.2-3.4); Absolute Monocyte Count 0.71 10^3/uL (0.1-0.8); Absolute Neutrophil Count 6.11 10^3/uL (1.2-6.7); Basophils % 0.4; Eosinophils % 1.3; HCT 37.1 % (40.0-50.0); Immature Grans % 0.9; Lymphocytes % 6.9; MCH 31.7 pg (27.0-33.0); MCHC 32.3 % (32.0-36.0); MCV 98 fL (80-95); MPV 8.5 fL (8.0-11.0); Monocytes % 9.4; Neutrophils % 81.1; Platelet Count 201 10^3/uL (130-400); RBC 3.78 10^6/uL (4.36-5.78); RDW 15.8 % (11.8-14.1); RDW-SD 57.3 fL; WBC 7.54 10^3/uL (4.4-10.8)
[2023-06-30 12:17] LABS: ALT 20 U/L (16-63); AST 26 U/L (15-37); Albumin 2.8 g/dL (3.4-5.0); Alkaline Phosphatase 93 U/L (46-116); Anion Gap 5.7 mmol/L (3-11); BUN 10 mg/dL (7-18); Bilirubin, Total 0.4 mg/dL (0.2-1.0); CO2 28.3 mmol/L (21.0-32.0); Calcium 8.8 mg/dL (8.5-10.1); Chloride 106 mmol/L (98-107); Estimated GFR 85.63 (mL/min/1.73m2); Glucose 106 mg/dL (74-106); Potassium 3.5 mmol/L (3.5-5.1); Sodium 140 mmol/L (136-145); Total Protein 6.5 g/dL (6.4-8.2)
== END 2023-06-30 04:06 | disposition home or self-care (01) ==
LOC: LBO 04:05
PROVIDERS: PCP Physician Assistant; Visit Provider Internal Medicine Hematology & Oncology
DX: C21.0 Malignant neoplasm of anus, unspecified (principal)
CPT/HCPCS: 36415; 80053; 85025

== ENCOUNTER 2023-07-11 16:57 | Emergency (ER) | payer MEDICAID, SELFPAY ==
[2023-07-11 17:01] VITALS: BP 102/68; PULSE 87; RESP 18; TEMP 37.2; O2SAT 94
--- NOTE | 2023-07-11 17:33 | W.ED.GENAD ---
Discharge Plan Disposition Patient Disposition: Home Discharge Details Clinical Impression: Encounter for ostomy care education, Prolapsed, intestine Primary Care Provider: Sha Ramos ED Provider: Renny Mcdonough Home Meds and New Rx's Prescriptions: Continued Secura Protective (zinc oxide) 10 % cream 1 applic topical BID-QID PRN (Reason: skin irritation) Qty: 78 6RF oxycodone 10 mg tablet 10 mg PO Q4H PRN docusate sodium [Colace] 100 mg Capsule 100 mg PO BID Qty: 60 0RF Rx Instructions: Take 1 tablet by mouth in the morning, and 1 tablet by mouth in the evening. ibuprofen 800 mg tablet 800 mg PO Q8H Patient Comments: TAKE ONE TABLET BY MOUTH EVERY 8 HOURS NEEDED FOR PAIN Discharge Instructions Additional Instructions: Please continue to monitor your symptoms and return immediately for any new or significant worsening of your condition especially if you start having discoloration of your stoma, severe pain, or no output. Otherwise you may continue to use positioning to help reduce any stomal protrusion. You have been placed on a referral to general surgery to follow-up with them for further discussion of long-term solution for your stomal protrusion but at this time there is no emergent findings Referrals: [facility] [Provider Group] - 5 days Medical Decision Making Patient presenting to the emergency department for chief complaint of ostomy complication. Patient reports over the past 1 to 2 weeks he has had intermittent ostomy prolapse with standing or certain seated positions. As soon as he lies flat or on his right side prolapse self reduces. Patient denies any pain or discomfort associated with this, denies any fever chills nausea vomiting or change in stool output. Physical exam shows a moderate ostomy prolapse with the tissue remaining nice and pink, no surrounding abdominal tenderness, normal active bowel sounds, exam otherwise unremarkable. Did have patient lie in the right lateral position and prolapse was easily self reducing with positioning. No further interventions were needed or taken. Did contact general surgeon on-call and Dr. Boyce recommended follow-up on outpatient basis. Patient added to care management list for follow-up to general surgery office later this week. After discussion of diagnosis and plan of care patient has no further needs, questions, or concerns and states clear understanding to return to the emergency department for any worsening symptoms. This documentation was generated using [employer] system, please disregard any oddities of phrase or misspellings. HPI General Mode of arrival: ambulatory. Date/Time Provider Initiated Documentation: 07/11/23 17:01. Limitations to Documentation: no limitations. Information obtained by: patient and RN notes reviewed. History of Present Illness 62 year old M presents to the emergency department with the chief complaint of Ostomy protrusion, Quality is described as other (Denies pain or discomfort), Patient started experiencing this week(s) (2) and it has been intermittent. other things that improve symptom(s), (Positioning) Other factors that worsen symptoms (Standing or sitting) . Patient notes no other symptoms.. Patient did receive the following treatments prior to arrival, none Related Data Home Medications Medication Instructions Recorded Confirmed zinc oxide 10 % topical cream 1 applic topical BID-QID PRN skin 03/01/23 04/12/23 (Secura Protective (zinc oxide)) irritation #78 grams docusate sodium 100 mg capsule 100 mg PO BID Constipation #60 caps 03/22/23 04/12/23 (Colace) oxycodone 10 mg tablet 10 mg PO Q4H PRN 04/12/23 ibuprofen 800 mg tablet 800 mg PO Q8H 07/11/23 07/11/23 Previous Rx's Medication Instructions Recorded zinc oxide 10 % topical cream 1 applic topical BID-QID PRN skin 03/01/23 (Secura Protective (zinc oxide)) irritation #78 grams docusate sodium 100 mg capsule 100 mg PO BID Constipation #60 caps 03/22/23 (Colace) Allergies Allergy/AdvReac Type Severity Reaction Status Date / Time No Known Allergies Allergy Unverified 07/11/23 17:16 General Stated Complaint: Abd Prob WENDY: 3 Review of Systems Constitutional Constitutional: Denies chills and Denies fever(s) Gastrointestinal Gastrointestinal: Reports as per HPI, Denies abdominal pain, Denies change in stool character, Denies diarrhea, Denies nausea and Denies vomiting Genitourinary Genitourinary: Reports system reviewed and no additional complaints, except as documented Musculoskeletal Musculoskeletal: Denies back pain PFSH All Active Problems Encounter for ostomy care education (Acute) Prolapsed, intestine (Acute) 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 (Acute) Housing insecurity (Acute) Food insecurity (Acute) 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 COPD (chronic obstructive pulmonary disease) (Chronic) Hypoalbuminemia due to protein-calorie malnutrition (Acute) Microcytic anemia (Acute) ETOH abuse (Chronic) Smoker (Acute) Social History Smoking/Tobacco Use Status: Current every day Tobacco Type: cigarettes Smoking risk assessment performed?: Yes Alcohol Intake: current Alcohol Intake frequency: a few times a week Alcohol type: beer Drug use: Rarely Substance use type: marijuana Do you feel safe at home: Yes Do you feel safe in your relationship?: Yes Exam Const General: cooperative Orientation: alert, awake and oriented x3 Resp Effort & Inspection: normal respiratory effort and able to speak in complete sentences Auscultation: clear to auscultation bilaterally Cardio Rate: regular rate Rhythm: regular rhythm Heart Sounds: S1 normal and S2 normal GI Inspection: other (Ostomy prolapse noted) Palpation: soft, not firm, no guarding, no masses, no pulsatile masses, not rigid and nontender Auscultation: normal bowel sounds Neuro General: patient alert, patient awake, patient oriented x3, gait normal and moves all extremities Course Vital Signs Vital signs: Vital Signs Temperature 37.2 C 07/11/23 17:01 Pulse 87 07/11/23 17:01 Respiratory Rate 18 07/11/23 17:01 Blood Pressure 102/68 07/11/23 17:01 Pulse Oximetry 94 07/11/23 17:01 Temperature 37.2 C 07/11/23 17:01 Temperature Source Temporal Artery Scan 07/11/23 17:01 Pulse 87 07/11/23 17:01 Respiratory Rate 18 07/11/23 17:01 Respiratory Effort Normal, Non-Labored 07/11/23 17:13 Blood Pressure 102/68 07/11/23 17:01 Blood Pressure Position Sitting 07/11/23 17:01 Pulse Oximetry 94 07/11/23 17:01 Oxygen Delivery Method Room Air 07/11/23 17:01 Oxygen Flow Rate 0 07/11/23 17:01 Pain Level 0 07/11/23 17:01 PAWSS Have you Been Recently Intoxicated or Drunk Within the Last 30 days?: No Have you Ever Experienced Previous Episodes of Alcohol Withdrawal?: No Have you ever Experienced Withdrawal Seizures?: No Have you ever Experienced Delirium Tremens(DT)s?: No Have you ever undergone Alcohol Rehabilitation Treatment (i.e, inpt ot outpatient treatment programs)?: No Have you ever Experienced Blackouts?: No Have you ever Combined Alcohol with other Downers within the last 90 days?: No Have you ever Combined Alcohol with any other Substance of Abuse during the last 90 days?: No Positive Blood Alcohol level on Presentation? [PCS.BAL]: No Evidence of Increased Autonomic Activity (i.e. HR>120, tremor, sweating, agitation, nausea)?: No Result: 0
--- NOTE | 2023-07-11 17:47 | NUR.NOTE ---
Nursing Note: PT needs follow up this week with general surgery for stomal protrusion. Betty, ED
[2023-07-11 17:57] VITALS: BP 113/75; PULSE 79; RESP 16; TEMP 36.6; O2SAT 95
== END 2023-07-11 18:25 | disposition home or self-care (01) ==
PROVIDERS: Emergency Provider Nurse Practitioner Family; PCP Physician Assistant
DX: K94.09 Other complications of colostomy (principal)
CPT/HCPCS: 99282; 99283

== ENCOUNTER 2023-07-28 03:30 | Outpatient (CLI) | payer MEDICAID, SELFPAY ==
[2023-07-28 11:47] LABS: Abs Immature Grans 0.05 10^3/uL (0.0-0.06); Absolute Basophil Count 0.03 10^3/uL (0.0-0.2); Absolute Eosinophil Count 0.03 10^3/uL (0.0-0.7); Absolute Lymphocyte Count 0.55 10^3/uL (1.2-3.4); Absolute Monocyte Count 0.66 10^3/uL (0.1-0.8); Absolute Neutrophil Count 6.69 10^3/uL (1.2-6.7); Basophils % 0.4; Eosinophils % 0.4; HGB 11.7 g/dL (13.5-17.5); Immature Grans % 0.6; Lymphocytes % 6.9; MCH 32.5 pg (27.0-33.0); MCHC 33.4 % (32.0-36.0); MCV 97 fL (80-95); MPV 8.8 fL (8.0-11.0); Monocytes % 8.2; Neutrophils % 83.5; Platelet Count 201 10^3/uL (130-400); RDW 13.4 % (11.8-14.1); RDW-SD 47.9 fL; WBC 8.01 10^3/uL (4.4-10.8)
[2023-07-28 12:03] LABS: ALT 17 U/L (16-63); AST 20 U/L (15-37); Albumin 2.9 g/dL (3.4-5.0); Alkaline Phosphatase 101 U/L (46-116); Anion Gap 6.7 mmol/L (3-11); BUN 11 mg/dL (7-18); Bilirubin, Total 0.3 mg/dL (0.2-1.0); CO2 26.3 mmol/L (21.0-32.0); Calcium 9.1 mg/dL (8.5-10.1); Chloride 103 mmol/L (98-107); Estimated GFR 85.63 (mL/min/1.73m2); Glucose 134 mg/dL (74-106); Potassium 3.9 mmol/L (3.5-5.1); Sodium 136 mmol/L (136-145)
== END 2023-07-28 03:31 | disposition home or self-care (01) ==
LOC: LBO 03:30
PROVIDERS: PCP Physician Assistant; Visit Provider Internal Medicine Hematology & Oncology
DX: C21.0 Malignant neoplasm of anus, unspecified (principal)
CPT/HCPCS: 36415; 80053; 85025

== ENCOUNTER 2023-09-03 02:03 | Outpatient (CLI) | payer MEDICAID, SELFPAY ==
[2023-09-03 10:37] LABS: Abs Immature Grans 0.08 10^3/uL (0.0-0.06); Absolute Basophil Count 0.04 10^3/uL (0.0-0.2); Absolute Lymphocyte Count 0.51 10^3/uL (1.2-3.4); Absolute Monocyte Count 0.74 10^3/uL (0.1-0.8); Absolute Neutrophil Count 7.43 10^3/uL (1.2-6.7); Basophils % 0.4; Eosinophils % 1.1; HCT 37.1 % (40.0-50.0); HGB 12.3 g/dL (13.5-17.5); Immature Grans % 0.9; Lymphocytes % 5.7; MCH 31.5 pg (27.0-33.0); MCHC 33.2 % (32.0-36.0); MCV 95 fL (80-95); MPV 8.5 fL (8.0-11.0); Monocytes % 8.3; Neutrophils % 83.6; Platelet Count 208 10^3/uL (130-400); RDW 13.8 % (11.8-14.1)
[2023-09-03 11:06] LABS: ALT 23 U/L (16-63); AST 21 U/L (15-37); Albumin 3.2 g/dL (3.4-5.0); Alkaline Phosphatase 108 U/L (46-116); Anion Gap 9.8 mmol/L (3-11); BUN 17 mg/dL (7-18); Bilirubin, Total 0.2 mg/dL (0.2-1.0); CO2 27.2 mmol/L (21.0-32.0); CREATININE 0.9 mg/dL (0.70-1.30); Calcium 9.3 mg/dL (8.5-10.1); Chloride 104 mmol/L (98-107); Estimated GFR 97.17 (mL/min/1.73m2); Glucose 99 mg/dL (74-106); Sodium 141 mmol/L (136-145); Total Protein 7.3 g/dL (6.4-8.2)
== END 2023-09-03 02:04 | disposition home or self-care (01) ==
PROVIDERS: PCP Physician Assistant; Visit Provider Nurse Practitioner Family
DX: C21.0 Malignant neoplasm of anus, unspecified (principal)
CPT/HCPCS: 36415; 80053; 85025

== ENCOUNTER 2023-12-09 05:50 | Emergency (ER) | payer MEDICAID, SELFPAY ==
[2023-12-09 05:57] VITALS: BP 127/74; PULSE 72; PULSE 80; RESP 24; RESP 28; TEMP 36.5; O2SAT 100; O2SAT 99
[2023-12-09 06:00] VITALS: PULSE 73; RESP 25; O2SAT 100
--- NOTE | 2023-12-09 06:00 | DI.RAD_ITS ---
Exam(s) XR PORTABLE CHEST AP EXAM: XR PORTABLE CHEST AP CLINICAL HISTORY: shortness of breath. TECHNIQUE: 2D digital imaging was performed. COMPARISON: CR XR PORTABLE CHEST AP POST LINE from 04/21/2023 FINDINGS: Single AP portable view. Heart size is upper normal. The mediastinum is not widened. Lungs are clear. No infiltrates nor obvious pleural effusions. IMPRESSION: No acute pulmonary findings on this single AP portable view of the chest. DATA REPOSITORY: RADIATION DOSE DELIVERED:
--- NOTE | 2023-12-09 06:00 | RT.EKG_ITS ---
APPROVED REPORT Exam: Resting ECG Reason for Exam: weakness, dizziness Patient Location: E HR:72 bpm ECG Measurements Heart Rate 72 AXIS SC 127 P 57 QRSd 92 QRS 84 QT 404 T 78 QTc 442 Conclusion Sinus rhythm.. V-rate 60- [address] segment or T wave abnormalities to suggest occlusive CO
[2023-12-09 06:05] VITALS: RESP 21
[2023-12-09 06:17] LABS: Abs Immature Grans 0.06 10^3/uL (0.0-0.06); Absolute Basophil Count 0.01 10^3/uL (0.0-0.2); Absolute Eosinophil Count 0.01 10^3/uL (0.0-0.7); Absolute Lymphocyte Count 0.46 10^3/uL (1.2-3.4); Absolute Monocyte Count 0.67 10^3/uL (0.1-0.8); Basophils % 0.2; Eosinophils % 0.2; HCT 39.8 % (40.0-50.0); HGB 13.3 g/dL (13.5-17.5); Immature Grans % 1.2; Lymphocytes % 9.6; MCH 30.1 pg (27.0-33.0); MCHC 33.4 % (32.0-36.0); MCV 90 fL (80-95); Monocytes % 13.9; Neutrophils % 74.9; Platelet Count 245 10^3/uL (130-400); RBC 4.42 10^6/uL (4.36-5.78); RDW 14.4 % (11.8-14.1); WBC 4.81 10^3/uL (4.4-10.8)
[2023-12-09 06:23] LABS: Lactate 2.1 mmol/L (0.6-1.4)
[2023-12-09 06:40] LABS: ALT 46 U/L (16-63); AST 49 U/L (15-37); Albumin 3.3 g/dL (3.4-5.0); Alkaline Phosphatase 156 U/L (46-116); Anion Gap 11.2 mmol/L (3-11); BUN 10 mg/dL (7-18); Bilirubin, Total 0.6 mg/dL (0.2-1.0); CO2 27.8 mmol/L (21.0-32.0); Calcium 9.1 mg/dL (8.5-10.1); Chloride 101 mmol/L (98-107); Glucose 115 mg/dL (74-106); Magnesium 1.9 mg/dL (1.8-2.4); Potassium 3.2 mmol/L (3.5-5.1); Sodium 140 mmol/L (136-145); Total Protein 7.7 g/dL (6.4-8.2); Troponin I < 50 ng/L (< or =60)
--- NOTE | 2023-12-09 06:45 | DI.CT_ITS ---
Exam(s) CT HEAD WO EXAM: CT HEAD WO CLINICAL HISTORY: hx cancer, increased thirst, tachypnea. TECHNIQUE: Imaging Protocol: Axial computed tomography images with coronal and sagittal reformatted images were created and reviewed COMPARISON: No exams were available for comparison FINDINGS: There are no skull fractures. There is no fluid in the visualized paranasal sinuses. There is no evidence of intracranial hemorrhage, mass effect, or shift of midline structures. There are no extra-axial fluid collections. The ventricles are not enlarged or shifted and there is no blo od within the ventricular system nor within the basal cisterns. There is heavy calcification in the supraclinoid aspects of both internal carotid arteries the skull base. IMPRESSION: No acute intracranial findings on this noninfused CT scan of the brain. RADIATION DOSE DELIVERED: 771.58mGy.cm Total DLP DATA REPOSITORY: All CT scans at this facility are submitted to the National Radiology Data Registry (NRDR) Dose Index Registry (DIR) with the [employer] (A[employer]). RADIATION OPTIMIZATION: All CT scans at this facility use at least one of these dose optimization te chniques: automated exposure control; mA and/or kV adjustment per patient size (includes targeted exa ms where dose is matched to clinical indication); or iterative reconstruction.
--- NOTE | 2023-12-09 06:49 | DI.CT_ITS ---
Exam(s) CT CHEST PE ABD PELVIS W EXAM: CT CHEST PE ABD PELVIS W CLINICAL HISTORY: SOB, hx cancer, elevated lactate, ostomy. TECHNIQUE: Imaging Protocol: Axial CT angiography was performed with multi-slice acquisition and m ulti-planar and/or 3D reconstructions. CONTRAST MATERIAL: Intravenous: Omnipaque 350 Contrast volume:100 ml Oral: None COMPARISON: CT CT ABDOMEN PELVIS W from 02/18/2023 FINDINGS: CHEST: PULMONARY ARTERIES: There are no intra-arterial filling defects to suggest the presence of acute pulm onary emboli. LUNGS: There is now small nodular infiltrate in the lateral basal segment of the right lower lobe flakito suring approximately 1.5 x 1.5 cm. No other focal new right lung findings. There is a small 7 mm no dular density in the left upper lobe (series 4/image 12).. There also mild increased markings in the apical posterior segment of the left upper lobe adjacent to the upper aspect of the left major fissu re. No other significant focal left lung findings. There are no pleural effusions. No findings in the trachea and mainstem bronchi.. MEDIASTINUM: There is no hilar nor mediastinal adenopathy. Visualized thyroid unremarkable. CARDIAC: Heart size is normal. There is no pericardial effusion. There is no significant shift of t he interventricular septum.Thoracic aorta unremarkable. No shift of the interventricular septum nor contrast reflux into the IVC. OSSEOUS: No significant osseous lesions.. ABDOMEN: There is no ascites. LIVER: There are no focal hepatic lesions nor dilatation of intrahepatic ducts. GALLBLADDER/BILIARY: No obvious gallbladder pathology. CBD is not dilated. PANCREAS: No evidence of pancreatic mass nor dilatation of the pancreatic duct. SPLEEN: Spleen is not enlarged. There are no intrasplenic lesions. Splenic and portal veins are fraire nt. ADRENALS: Right adrenal unremarkable. Thickening of the medial limb and genu of the left adrenal gla nd is unchanged from the prior CT scan 02/18/2023. KIDNEYS:Again noted is a 1.5 cm benign cyst in the lateral cortex of the right kidney, unchanged. Th is benign finding does not require further workup. There is a smaller partially exophytic benign cys t in the lateral cortex of the opposite-left kidney measuring 9 x 8 mm, unchanged, benign, and not re quiring further workup. There are no solid renal masses. No calculi. No hydronephrosis nor hydrour eter. The urinary bladder wall is again noted to be uniformly thickened, similar to previous.. ABDOMINAL AORTA: Abdominal aorta is not enlarged. LYMPH NODES: There is no retroperitoneal or para-aortic adenopathy. ABDOMINAL WALL/GI: There has been interval creation of a left anterior abdominal wall colostomy. The re is no hernia at this level. No bowel obstruction, free air, nor abscess. The colon distal to thi s level is collapsed with the exception of the rectum which is circumferentially thickened. There is also a prominent mass at the anal level extending caudally and measuring approximately 5.5 cm AP by 1.8 cm wide.. PELVIS: LYMPH NODES: There is no intrapelvic nor inguinal adenopathy. GI: No evidence of appendicitis.No evidence of sigmoid diverticulitis. URINARY BLADDER: Circumferential wall thickening. REPRODUCTIVE: Prostate gland size normal. No obturator adenopathy. OSSEOUS: No significant osseous lesions. No fractures. Multilevel disc space narrowing. IMPRESSION: 1. No evidence of acute pulmonary emboli nor pulmonary infarction. 2. There is a small area of nodular infiltrate in the right lower lobe measuring approximately 1.5 cm and a smaller nodular infiltrate in the left upper lobe measuring less than 1 cm. These require spencer ropriate follow-up. No other lung findings nor intrathoracic adenopathy and there are no pleural eff usions. 3. There has been interval creation of a left-sided anterior abdominal wall colostomy with no evidenc e of bowel obstruction, free air, abscess, nor ascites. Left side of the colon and sigmoid are colla psed. There is symmetrical circumferential thickening of the rectal wall. There is also an exophyti c mass like density measuring 5.5 x 1.8 cm coming off of the anal area and extending caudally. This should be visible on physical examination. This is either an element of prolapsed hemorrhoid versus neoplasm. 4. There is relatively symmetrical thickening of the urinary bladder wall. This is unchanged from prior CT scan of 02/18/2023. Possible chronic cystitis. May also be related to post radiation marcelo nges if there has been any radiation therapy here. There are no bladder diverticuli nor intraluminal calculi. No obvious asymmetric mass in the urinary bladder. 5. No osseous lesions identified. Discussed with ER physician. RADIATION DOSE DELIVERED: 923.86mGy.cm Total DLP DATA REPOSITORY: All CT scans at this facility are submitted to the National Radiology Data Registry (NRDR) Dose Index Registry (DIR) with the [employer] [place] [employer] (A[employer]). RADIATION OPTIMIZATION: All CT scans at this facility use at least one of these dose optimization te chniques: automated exposure control; mA and/or kV adjustment per patient size (includes targeted exa ms where dose is matched to clinical indication); or iterative reconstruction.
[2023-12-09 06:50] LABS: NT-proBNP 240 pg/mL (<300)
--- NOTE | 2023-12-09 06:58 | ED.GENADUL_ITS ---
HPI General Mode of arrival: ambulatory . Date/Time Provider Initiated Documentation: 12/09/23 05:55 . Limitations to Documentation: no limitations . Information obtained by: patient . HPI Narrative: 63yo M with hx of COPD, anal squamous cell carcinoma with colostomy, presenting for increased thirst and dizziness. Not on chemotherapy or radiation. Symptoms started yesterday. Decreased solid PO intake but has been drinking 'a lot' of water, still feels very thirsty. He is concerned he may be dehydrated. Also feels a little lightheaded. No vertigo. No headache, numbness, or focal weakness. No nausea, vomiting, change in ostomy output, or abdominal pain. No chest pain, does feel slightly short of breath, unsure for how long. He is otherwise in his usual state of health with no fevers, chills, rash, dysuria, hematuria, change in urine output, recent falls, or other concerns. Related Data Home Medications Medication Instructions Recorded Confirmed gabapentin 300 mg capsule 300 mg PO TID 12/03/23 12/09/23 hydrocortisone 1 % topical cream 1 applic topical TID 12/03/23 12/09/23 ibuprofen 800 mg tablet 800 mg PO Q8H PRN 12/03/23 12/09/23 ketoconazole 2 % topical cream 1 applic topical QID PRN 12/03/23 12/09/23 lidocaine HCl 4 % topical cream 1 applic topical Q4H PRN PRN 12/03/23 12/09/23 loperamide 2 mg capsule 2 mg PO QID PRN 12/03/23 12/09/23 (Anti-Diarrheal (loperamide)) neomycin-bacitracn Zn-polymyx 3.5 1 applic topical QID PRN 12/03/23 12/09/23 mg-400 unit-5,000 unit/gram top oint (Neosporin (bsy-lpg-[id number])) ondansetron HCl 8 mg tablet 8 mg PO Q8H PRN 12/03/23 12/09/23 oxycodone 15 mg tablet 15 - 30 mg PO Q4H PRN 12/03/23 12/09/23 oxycodone myristate 18 mg capsule 18 mg PO BID 12/03/23 12/09/23 sprinkle extended release 12hr(DON'T CRUSH) (Xtampza ER) polyethylene glycol 3350 17 gram 17 g PO DAILY 12/03/23 12/09/23 oral powder packet silver sulfadiazine 1 % topical 1 applic topical QID 12/03/23 12/09/23 cream Allergies Allergy/AdvReac Type Severity Reaction Status Date / Time No Known Allergies Allergy Unverified 12/09/23 06:04 General Stated Complaint: Dizzy/Sync WENDY: 3 Review of Systems Narrative: see HPI Exam Narrative Exam Narrative: General: Alert, cachectic, chronically ill appearing Head: Normocephalic, atraumatic Neck: Trachea midline, ?Neck supple. ENT: ?MMM.? Cardiac: ?RRR, no murmurs appreciated Resp: RR in low to mid 20's. CTAB. Abd: ?Soft, non-distended, nontender. Ostomy in place, scant brown output. : ?No suprapubic tenderness. Extremities: ?No deformities.? No peripheral edema. Neuro: GCS 15.? Fluent speech, no dysarthria. Motor- 5/5 strength symmetric bilateral upper and lower extremities Sensation- ?Intact to light touch and symmetric multiple dermatomes including upper and lower extremities Coordination- No dysmetria on finger to nose Gait/station: ?Normal stance.? No truncal ataxia. Steady gait with equal normal steps CRANIAL NERVES: II: Pupils equal and reactive, III, IV, : EOM intact, no gaze preference or deviation, no nystagmus. V: normal sensation in V1, V2, and V3 segments bilaterally VII: no asymmetry, no nasolabial fold flattening VIII: normal hearing to speech IX, X: normal palatal elevation, no uvular deviation XI: 5/5 head turn and 5/5 shoulder shrug bilaterally XII: midline tongue protrusion Course Vital Signs Vital signs: Vital Signs Temperature 36.5 C 12/09/23 05:57 Pulse 72 12/09/23 05:57 Respiratory Rate 24 12/09/23 05:57 Blood Pressure 127/74 12/09/23 05:57 Pulse Oximetry 100 12/09/23 05:57 Temperature 36.5 C 12/09/23 05:57 Temperature Source Skin 12/09/23 05:57 Pulse 72 12/09/23 05:57 Pulse 73 12/09/23 06:00 Respiratory Rate 21 12/09/23 06:05 Respiratory Effort Normal 12/09/23 06:05 Respiratory Depth Normal 12/09/23 06:05 Respiratory Pattern Normal 12/09/23 06:05 Blood Pressure 127/74 12/09/23 05:57 Blood Pressure Position Supine 12/09/23 05:57 Pulse Oximetry 100 12/09/23 06:00 Oxygen Delivery Method Room Air 12/09/23 05:57 Oxygen Flow Rate 0 12/09/23 05:57 Pain Level 3 12/09/23 05:57 Lab/Test Results Lab/Test Results: Laboratory Tests Range/Units 12/09/23 06:00 WBC (4.4-10.8) 10^3/uL 4.81 RBC (4.36-5.78) 10^6/uL 4.42 Hgb (13.5-17.5) g/dL 13.3 L Hct (40.0-50.0) % 39.8 L MCV (80-95) fL 90 MCH (27.0-33.0) pg 30.1 MCHC (32.0-36.0) % 33.4 RDW (11.8-14.1) % 14.4 H Plt Count (130-400) 10^3/uL 245 MPV (8.0-11.0) fL 9.0 Immature Gran % 1.2 Neutrophils % 74.9 Lymphocytes % 9.6 Monocytes % 13.9 Eosinophils % 0.2 Basophils % 0.2 Nucleated RBC % (0.0-0.3) % 0.0 Absolute Neutrophils (1.2-6.7) 10^3/uL 3.60 Absolute Lymphocytes (1.2-3.4) 10^3/uL 0.46 L Absolute Monocytes (0.1-0.8) 10^3/uL 0.67 Absolute Eosinophils (0.0-0.7) 10^3/uL 0.01 Absolute Basophils (0.0-0.2) 10^3/uL 0.01 VBG Lactate (0.6-1.4) mmol/L 2.1 H Sodium (136-145) mmol/L 140 Potassium (3.5-5.1) mmol/L 3.2 L Chloride (98-107) mmol/L 101 Carbon Dioxide (21.0-32.0) mmol/L 27.8 Anion Gap (3-11) mmol/L 11.2 H BUN (7-18) mg/dL 10 Creatinine (0.70-1.30) mg/dL 1.0 Est GFR (CKD-EPI 2020) (mL/min/1.73m2) 85.10 Glucose (74-106) mg/dL 115 H Calcium (8.5-10.1) mg/dL 9.1 Magnesium (1.8-2.4) mg/dL 1.9 Total Bilirubin (0.2-1.0) mg/dL 0.6 AST (15-37) U/L 49 H ALT (16-63) U/L 46 Alkaline Phosphatase (46-116) U/L 156 H Troponin I (< or =60) ng/L < 50 NT-Pro-B Natriuret Pep (<300) pg/mL 240 Total Protein (6.4-8.2) g/dL 7.7 Albumin (3.4-5.0) g/dL 3.3 L Medical Decision Making 63yo M with hx of COPD, anal squamous cell carcinoma with colostomy, presenting for increased thirst and dizziness, concerned that he is dehydrated. Not on chemotherapy or radiation. For one day has felt very thirsty despite drinking a large amount of water. No nausea, vomiting, or change in ostomy output. Also feels lightheaded; no vertigo, no neurlogic symptoms. No chest pain but does have some shortness of breath, not sure for how long. On arrival RR ranging from low 20's to mid 30's. No increased work of breathing, lungs clear, no hypoxia. Vital signs otherwise reassuring. Chronically ill-appearing on exam. Portable CXR independently reviewed, no pulmonary edema or focal pneumonia on my view, agree with radiology read below. Does not appear volume overloaded. Will give small IVFB 500cc. EKG NSR, appropriate intervals, no ST segment or T wave abnormalities to suggest occlusive MO. Unclear how much of patient's ill appearance today is chronic vs acute; broad workup including labs and imaging initiated. Labs reviewed as below, CBC reassuring with no leukoctyosis, mild anemia at 13.3 unlikely to be cause of patient's symptoms. CMP with mild hypokalemia to 3.2 (oral replacement ordered) otherwise no significant acute findings. Lactate slightly elevated at 2.1, normal procalictonin. Troponin negative and BNP normal. UA not infected. Vitals and laboratory workup not consistent with sepsis or serious bacterial infection. Respiratory viral swab is positive for influenza A which may be contributing to patient's symptoms. CT he ad ordered to evaluate for intracranial pathology/metastasis, CT chest for pulmonary embolism, abd/pelvis for acute/surgical intraabdomoninal process. Signed out to oncoming physican pending CT imaging; if reassuring and no significant clinical changes would attribute symptoms to flu, consider discharge on tamiflu. Imaging Data Radiologic Study: Imaging: X-Ray Radiologist's impression: IMPRESSION: No acute cardiopulmonary findings. Lab Data Lab results reviewed: Yes I reviewed the patient's lab results. Labs: Laboratory Tests Range/Units 12/09/23 12/09/23 12/09/23 06:00 06:16 07:08 WBC (4.4-10.8) 10^3/uL 4.81 RBC (4.36-5.78) 10^6/uL 4.42 Hgb (13.5-17.5) g/dL 13.3 L Hct (40.0-50.0) % 39.8 L MCV (80-95) fL 90 MCH (27.0-33.0) pg 30.1 MCHC (32.0-36.0) % 33.4 RDW (11.8-14.1) % 14.4 H Plt Count (130-400) 10^3/uL 245 MPV (8.0-11.0) fL 9.0 Immature Gran % 1.2 Neutrophils % 74.9 Lymphocytes % 9.6 Monocytes % 13.9 Eosinophils % 0.2 Basophils % 0.2 Nucleated RBC % (0.0-0.3) % 0.0 Absolute Neutrophils (1.2-6.7) 10^3/uL 3.60 Absolute Lymphocytes (1.2-3.4) 10^3/uL 0.46 L Absolute Monocytes (0.1-0.8) 10^3/uL 0.67 Absolute Eosinophils (0.0-0.7) 10^3/uL 0.01 Absolute Basophils (0.0-0.2) 10^3/uL 0.01 VBG Lactate (0.6-1.4) mmol/L 2.1 H Sodium (136-145) mmol/L 140 Potassium (3.5-5.1) mmol/L 3.2 L Chloride (98-107) mmol/L 101 Carbon Dioxide (21.0-32.0) mmol/L 27.8 Anion Gap (3-11) mmol/L 11.2 H BUN (7-18) mg/dL 10 Creatinine (0.70-1.30) mg/dL 1.0 Est GFR (CKD-EPI 2020) (mL/min/1.73m2) 85.10 Glucose (74-106) mg/dL 115 H Calcium (8.5-10.1) mg/dL 9.1 Magnesium (1.8-2.4) mg/dL 1.9 Total Bilirubin (0.2-1.0) mg/dL 0.6 AST (15-37) U/L 49 H ALT (16-63) U/L 46 Alkaline Phosphatase (46-116) U/L 156 H Troponin I (< or =60) ng/L < 50 NT-Pro-B Natriuret Pep (<300) pg/mL 240 Total Protein (6.4-8.2) g/dL 7.7 Albumin (3.4-5.0) g/dL 3.3 L Procalcitonin ng/mL < 0.1 Urine Color (Yellow) Yellow Urine Clarity (Clear) Clear Urine pH (5-8) 7.5 Ur Specific [place] (1.005-1.025) 1.015 Urine Protein (Negative) mg/dL Negative Urine Ketones (Negative) mg/dL Negative Urine Blood (Negative) Trace-lysed H Urine Nitrite (Negative) Negative Urine Bilirubin (Negative) Negative Urine Urobilinogen (Up to 0.2) mg/dL 0.2 Ur Leukocyte Esterase (Negative) Negative Urine RBC (0-2) HPF 3-5 H Urine WBC (0-5) HPF 0-2 Ur Epithelial Cells (Negative) HPF Rare Urine Crystals (Negative) HPF Negative Urine Bacteria (Negative) HPF Rare Urine Casts (Negative) LPF Negative Urine Mucus (Negative) Negative Ur Culture Indicated? No Urine Glucose (Negative) mg/dL Negative COVID-19 Source Nasopharynx SARS-CoV-2 (PCR) (Negative) Negative Influenza Type A (PCR) (Negative) Positive A Influenza Type B (PCR) (Negative) Negative RSV (PCR) (Negative) Negative Quality:SDOH Health Related Social Needs: No Data to Display PFSH All Active Problems Transportation insecurity due to lack of grab driver's license (Acute) Housing insecurity (Acute) Food insecurity (Acute) 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 COPD (chronic obstructive pulmonary disease) (Chronic) Hypoalbuminemia due to protein-calorie malnutrition (Acute) Microcytic anemia (Acute) ETOH abuse (Chronic) Smoker (Acute) Medical History (Updated 12/03/23 @ 08:43 by Chelsea Albright RN) Skin ulcer of perineum with fat layer exposed Surgical History (Updated 12/03/23 @ 08:43 by Chelsea Albright RN) Status post radiation therapy Family History (Updated 12/03/23 @ 08:43 by Chelsea Albright RN) Other Cancer Social History Smoking/Tobacco Use Status: Current every day Tobacco Type: cigarettes Smoking risk assessment performed?: Yes Alcohol Intake: former Drug use: Rarely Substance use type: marijuana Do you feel safe at home: Yes Do you feel safe in your relationship?: Yes Sign Out Sign Out Data: Sign Out Comment: 63M, COPD & anal cancer, presents with increased thirst/lightheaded/short of breath. Flu +, slightly elevated lactate, labs otherwise overall reassuring. Pending CT head/chest/abd-pelvis. Last updated by Jennifer Howard MD at 12/09/23 07:32 Discharge Plan Discharge Details Chief Complaint: Dizzy/Sync Primary Care Provider: Sha Ramos ED Provider: Jennifer Howard Home Meds and New Rx's Prescriptions: No Action ibuprofen 800 mg tablet 800 mg PO Q8H PRN Patient Comments: TAKE ONE TABLET BY MOUTH EVERY 8 HOURS NEEDED FOR PAIN loperamide [Anti-Diarrheal (loperamide)] 2 mg capsule 2 mg PO QID PRN silver sulfadiazine 1 % cream 1 applic topical QID Rx Instructions: apply a 1.5 mm thickness lidocaine HCl 4 % cream 1 applic topical Q4H PRN PRN hydrocortisone 1 % cream 1 applic topical TID polyethylene glycol 3350 17 gram powder in packet 17 g PO DAILY ondansetron HCl 8 mg tablet 8 mg PO Q8H PRN ketoconazole 2 % cream 1 applic topical QID PRN Neosporin (yba-pic-[id number]) 3.5mg-400 unit- 5,000 unit/gram ointment 1 applic topical QID PRN Xtampza ER 18 mg cap,sprinkl,ER12hr(DONT CRUSH) 18 mg PO BID Rx Instructions: must administer with a meal/food gabapentin 300 mg capsule 300 mg PO TID Patient Comments: pt states he is taking it BID. 12/09/23 oxycodone 15 mg tablet 15 - 30 mg PO Q4H PRN
[2023-12-09 07:01] LABS: COVID-19 PCR Negative (Negative); Influenza A PCR Positive (Negative); Influenza B PCR Negative (Negative); RSV PCR Negative (Negative)
[2023-12-09 07:03] LABS: Source Nasopharynx
--- NOTE | 2023-12-09 07:05 | DI.VRAD_ITS ---
PROCEDURE INFORMATION: Exam: XR Chest Exam date and time: 12/09/2023 6:32 AM Age: 63 years old Clinical indication: Shortness of breath; Additional info: H/o cancer TECHNIQUE: Imaging protocol: Radiologic exam of the chest. Views: 1 view. COMPARISON: CR XR PORTABLE CHEST AP POST LINE 04/21/2023 12:09 PM FINDINGS: Tubes, catheters and devices: Interval removal of right-sided peripherally inserted central catheter. Lungs: Unremarkable. No consolidation. Pleural spaces: Unremarkable. No pleural effusion. No pneumothorax. Heart/Mediastinum: Unremarkable. No cardiomegaly. Bones/joints: Scattered degenerative changes of the visualized osseous structures. IMPRESSION: No acute cardiopulmonary findings. Dictated and Authenticated by: Alan Flanagan MD. Ordering:GLORIA Rodriguez MD
[2023-12-09 07:09] LABS: Procalcitonin < 0.1 ng/mL
[2023-12-09 07:15] LABS: Bilirubin Negative (Negative); Blood Trace-lysed (Negative); Clarity Clear (Clear); Glucose Negative (Negative); Ketones Negative (Negative); Leukocyte Esterase Negative (Negative); Nitrite Negative (Negative); Specific Gravity 1.015 (1.005-1.025); Urobilinogen 0.2 mg/dL (Up to 0.2); pH 7.5 (5-8)
[2023-12-09 07:24] LABS: Bacteria Rare HPF (Negative); C & S Indicated? No; Casts Negative LPF (Negative); Crystals Negative HPF (Negative); Epithelial Cells Rare HPF (Negative); Mucus Negative (Negative); WBC 0-2 HPF (0-5)
[2023-12-09] MEDS: Omnipaque 350 MG/ML 100 ML BTL IJ (07:30)
[2023-12-09] MEDS: Normal Saline 500 ML IV (07:35)
[2023-12-09] MEDS: Potassium Chloride 20 MEQ TABCR 40 MEQ PO (07:37)
--- NOTE | 2023-12-09 09:42 | ED.PROG_ITS ---
Date of service: 12/09/23 Time of Service: 09:56 Medical Decision Making Care was signed out by Dr. Arana, please see her documentation regarding initial ED presentation and course. CT of the chest abdomen pelvis interpreted by radiology:2. There is a small area of nodular infiltrate in the right lower lobe measuring approximately 1.5 cm and a smaller nodular infiltrate in the left upper lobe measuring less than 1 cm. These require appropriate follow-up. No other lung findings nor intrathoracic adenopathy and there are no pleural effusions. 3. There has been interval creation of a left-sided anterior abdominal wall colostomy with no evidence of bowel obstruction, free air, abscess, nor ascites. Left side of the colon and sigmoid are collapsed. There is symmetrical circumferential thickening of the rectal wall. There is also an exophytic mass like density measuring 5.5 x 1.8 cm coming off of the anal area and extending caudally. This should be visible on physical examination. This is either an element of prolapsed hemorrhoid versus neoplasm. 4. There is relatively symmetrical thickening of the urinary bladder wall. This is unchanged from the prior CT scan of 02/18/2023. Possible chronic cystitis. May also be related to post radiation changes if there has been any radiation therapy here. There are no bladder diverticuli nor intraluminal calculi. No obvious asymmetric mass in the urinary bladder. Influenza A positive. Plan to start Tamiflu. Patient reassessed and feeling much better. Patient requesting discharge. Plan for discharge with outpatient follow-up with PCP and oncology. All results were discussed with the patient. Disposition decision was made weighing the risks and benefits of hospitalization versus outpatient treatment, the risk for further decompensation, and the patient's wishes. The patient was stable and requested discharge. Prior to discharge, my usual and customary return precautions were reviewed with the patient - this included follow-up instructions and reason to return to the emergency department if condition worsens, does not improve as expected, or other new concerns arise. Lab Data Lab results reviewed: Yes I reviewed the patient's lab results. Labs: Laboratory Tests Range/Units 12/09/23 12/09/23 12/09/23 06:00 06:16 07:08 WBC (4.4-10.8) 10^3/uL 4.81 RBC (4.36-5.78) 10^6/uL 4.42 Hgb (13.5-17.5) g/dL 13.3 L Hct (40.0-50.0) % 39.8 L MCV (80-95) fL 90 MCH (27.0-33.0) pg 30.1 MCHC (32.0-36.0) % 33.4 RDW (11.8-14.1) % 14.4 H Plt Count (130-400) 10^3/uL 245 MPV (8.0-11.0) fL 9.0 Immature Gran % 1.2 Neutrophils % 74.9 Lymphocytes % 9.6 Monocytes % 13.9 Eosinophils % 0.2 Basophils % 0.2 Nucleated RBC % (0.0-0.3) % 0.0 Absolute Neutrophils (1.2-6.7) 10^3/uL 3.60 Absolute Lymphocytes (1.2-3.4) 10^3/uL 0.46 L Absolute Monocytes (0.1-0.8) 10^3/uL 0.67 Absolute Eosinophils (0.0-0.7) 10^3/uL 0.01 Absolute Basophils (0.0-0.2) 10^3/uL 0.01 VBG Lactate (0.6-1.4) mmol/L 2.1 H Sodium (136-145) mmol/L 140 Potassium (3.5-5.1) mmol/L 3.2 L Chloride (98-107) mmol/L 101 Carbon Dioxide (21.0-32.0) mmol/L 27.8 Anion Gap (3-11) mmol/L 11.2 H BUN (7-18) mg/dL 10 Creatinine (0.70-1.30) mg/dL 1.0 Est GFR (CKD-EPI 2020) (mL/min/1.73m2) 85.10 Glucose (74-106) mg/dL 115 H Calcium (8.5-10.1) mg/dL 9.1 Magnesium (1.8-2.4) mg/dL 1.9 Total Bilirubin (0.2-1.0) mg/dL 0.6 AST (15-37) U/L 49 H ALT (16-63) U/L 46 Alkaline Phosphatase (46-116) U/L 156 H Troponin I (< or =60) ng/L < 50 NT-Pro-B Natriuret Pep (<300) pg/mL 240 Total Protein (6.4-8.2) g/dL 7.7 Albumin (3.4-5.0) g/dL 3.3 L Procalcitonin ng/mL < 0.1 Urine Color (Yellow) Yellow Urine Clarity (Clear) Clear Urine pH (5-8) 7.5 Ur Specific [place] (1.005-1.025) 1.015 Urine Protein (Negative) mg/dL Negative Urine Ketones (Negative) mg/dL Negative Urine Blood (Negative) Trace-lysed H Urine Nitrite (Negative) Negative Urine Bilirubin (Negative) Negative Urine Urobilinogen (Up to 0.2) mg/dL 0.2 Ur Leukocyte Esterase (Negative) Negative Urine RBC (0-2) HPF 3-5 H Urine WBC (0-5) HPF 0-2 Ur Epithelial Cells (Negative) HPF Rare Urine Crystals (Negative) HPF Negative Urine Bacteria (Negative) HPF Rare Urine Casts (Negative) LPF Negative Urine Mucus (Negative) Negative Ur Culture Indicated? No Urine Glucose (Negative) mg/dL Negative COVID-19 Source Nasopharynx SARS-CoV-2 (PCR) (Negative) Negative Influenza Type A (PCR) (Negative) Positive A Influenza Type B (PCR) (Negative) Negative RSV (PCR) (Negative) Negative Range/Units 12/09/23 09:05 WBC (4.4-10.8) 10^3/uL RBC (4.36-5.78) 10^6/uL Hgb (13.5-17.5) g/dL Hct (40.0-50.0) % MCV (80-95) fL MCH (27.0-33.0) pg MCHC (32.0-36.0) % RDW (11.8-14.1) % Plt Count (130-400) 10^3/uL MPV (8.0-11.0) fL Immature Gran % Neutrophils % Lymphocytes % Monocytes % Eosinophils % Basophils % Nucleated RBC % (0.0-0.3) % Absolute Neutrophils (1.2-6.7) 10^3/uL Absolute Lymphocytes (1.2-3.4) 10^3/uL Absolute Monocytes (0.1-0.8) 10^3/uL Absolute Eosinophils (0.0-0.7) 10^3/uL Absolute Basophils (0.0-0.2) 10^3/uL VBG Lactate (0.6-1.4) mmol/L 1.0 Sodium (136-145) mmol/L Potassium (3.5-5.1) mmol/L Chloride (98-107) mmol/L Carbon Dioxide (21.0-32.0) mmol/L Anion Gap (3-11) mmol/L BUN (7-18) mg/dL Creatinine (0.70-1.30) mg/dL Est GFR (CKD-EPI 2020) (mL/min/1.73m2) Glucose (74-106) mg/dL Calcium (8.5-10.1) mg/dL Magnesium (1.8-2.4) mg/dL Total Bilirubin (0.2-1.0) mg/dL AST (15-37) U/L ALT (16-63) U/L Alkaline Phosphatase (46-116) U/L Troponin I (< or =60) ng/L NT-Pro-B Natriuret Pep (<300) pg/mL Total Protein (6.4-8.2) g/dL Albumin (3.4-5.0) g/dL Procalcitonin ng/mL Urine Color (Yellow) Urine Clarity (Clear) Urine pH (5-8) Ur Specific [place] (1.005-1.025) Urine Protein (Negative) mg/dL Urine Ketones (Negative) mg/dL Urine Blood (Negative) Urine Nitrite (Negative) Urine Bilirubin (Negative) Urine Urobilinogen (Up to 0.2) mg/dL Ur Leukocyte Esterase (Negative) Urine RBC (0-2) HPF Urine WBC (0-5) HPF Ur Epithelial Cells (Negative) HPF Urine Crystals (Negative) HPF Urine Bacteria (Negative) HPF Urine Casts (Negative) LPF Urine Mucus (Negative) Ur Culture Indicated? Urine Glucose (Negative) mg/dL COVID-19 Source SARS-CoV-2 (PCR) (Negative) Influenza Type A (PCR) (Negative) Influenza Type B (PCR) (Negative) RSV (PCR) (Negative) Quality:SDOH Health Related Social Needs: No Data to Display Sign Out Sign Out Data: Sign Out Comment: 63M, COPD & anal cancer, presents with increased thirst/lightheaded/short of breath. Flu +, slightly elevated lactate, labs otherwise overall reassuring. Pending CT head/chest/abd-pelvis. Last updated by Jennifer Howard MD at 12/09/23 07:32 Discharge Plan Disposition Patient Disposition: Home Condition: Stable Discharge Details Clinical Impression: Influenza A, Pulmonary nodules, Hypokalemia, Rectal cancer Primary Care Provider: Sha Ramos ED Provider: David Barry Home Meds and New Rx's Prescriptions: New oseltamivir [Tamiflu] 75 mg capsule 75 mg PO BID 5 Days Qty: 10 0RF Continued silver sulfadiazine 1 % cream 1 applic topical QID Rx Instructions: apply a 1.5 mm thickness lidocaine HCl 4 % cream 1 applic topical Q4H PRN PRN Xtampza ER 18 mg cap,sprinkl,ER12hr(DONT CRUSH) 18 mg PO BID Rx Instructions: must administer with a meal/food oxycodone 15 mg tablet 15 - 30 mg PO Q4H PRN Changed gabapentin 300 mg capsule 300 mg PO BID Qty: 0 0RF Patient Comments: pt states he is taking it BID. 12/09/23 Discontinued ibuprofen 800 mg tablet 800 mg PO Q8H PRN Patient Comments: TAKE ONE TABLET BY MOUTH EVERY 8 HOURS NEEDED FOR PAIN loperamide [Anti-Diarrheal (loperamide)] 2 mg capsule 2 mg PO QID PRN hydrocortisone 1 % cream 1 applic topical TID polyethylene glycol 3350 17 gram powder in packet 17 g PO DAILY ondansetron HCl 8 mg tablet 8 mg PO Q8H PRN ketoconazole 2 % cream 1 applic topical QID PRN Neosporin (src-dal-fltye) 3.5mg-400 unit- 5,000 unit/gram ointment 1 applic topical QID PRN Discharge Instructions Instructions: Hypokalemia (ED), Influenza (ED) Additional Instructions: CT imaging today revealed: There is a small area of nodular infiltrate in the right lower lobe measuring approximately 1.5 cm and a smaller nodular infiltrate in the left upper lobe measuring less than 1 cm. These require appropriate follow-up. No other lung findings nor intrathoracic adenopathy and there are no pleural effusions. There has been interval creation of a left-sided anterior abdominal wall colostomy with no evidence of bowel obstruction, free air, abscess, nor ascites. Left side of the colon and sigmoid are collapsed. There is symmetrical circumferential thickening of the rectal wall. There is also an exophytic mass like density measuring 5.5 x 1.8 cm coming off of the anal area and extending caudally. This should be visible on physical examination. This is either an element of prolapsed hemorrhoid versus neoplasm (cancer). There is relatively symmetrical thickening of the urinary bladder wall. This is unchanged from the prior CT scan of 02/18/2023. Possible chronic cystitis. May also be related to post radiation changes if there has been any radiation therapy here. There are no bladder diverticuli nor intraluminal calculi. No obvious asymmetric mass in the urinary bladder. CT imaging revealed pulmonary nodules in your lungs. Please be sure to discuss this with your primary care physician to arrange follow-up diagnostics. Please contact your primary care physician to arrange follow-up. Please follow-up with your oncologist, Dr. Everett. Return to the ER immediately for any worsening or new concerning symptoms. Referrals: Sha Ramos [Primary Care Provider] -
[2023-12-09 09:59] VITALS: BP 112/70; PULSE 86; RESP 18; O2SAT 95
== END 2023-12-09 10:02 | disposition home or self-care (01) ==
PROVIDERS: Student in an Organized Health Care Education/Training Program; Emergency Provider Student in an Organized Health Care Education/Training Program; PCP Physician Assistant
DX: R42 Dizziness and giddiness (principal); R91.1 Solitary pulmonary nodule; E87.6 Hypokalemia; J44.9 Chronic obstructive pulmonary disease, unspecified; C21.0 Malignant neoplasm of anus, unspecified; F17.210 Nicotine dependence, cigarettes, uncomplicated; Z11.52 Encounter for screening for COVID-19; J10.1 Influenza due to other identified influenza virus with other respiratory manifestations; Z93.3 Colostomy status
CPT/HCPCS: 00123; 36415; 71275; 74177; 80053; 84145; 87637; 93005; 96360; 99285; 70450; 71045; 81003; 81015; 83605; 83735; 83880; 84484; 85025; 93010; 99284; J3490

== ENCOUNTER 2023-12-10 03:20 | Outpatient (CLI) | payer MEDICAID, SELFPAY ==
[2023-12-10 13:34] LABS: Abs Immature Grans 0.08 10^3/uL (0.0-0.06); Absolute Basophil Count 0.01 10^3/uL (0.0-0.2); Absolute Eosinophil Count 0.01 10^3/uL (0.0-0.7); Absolute Lymphocyte Count 0.45 10^3/uL (1.2-3.4); Absolute Monocyte Count 0.84 10^3/uL (0.1-0.8); Basophils % 0.2; Eosinophils % 0.2; HCT 38.3 % (40.0-50.0); HGB 12.7 g/dL (13.5-17.5); Immature Grans % 1.4; Lymphocytes % 7.9; MCH 29.7 pg (27.0-33.0); MCHC 33.2 % (32.0-36.0); MCV 90 fL (80-95); MPV 8.5 fL (8.0-11.0); Monocytes % 14.8; Neutrophils % 75.5; Platelet Count 250 10^3/uL (130-400); RBC 4.28 10^6/uL (4.36-5.78); RDW 14.3 % (11.8-14.1); RDW-SD 47.2 fL; WBC 5.69 10^3/uL (4.4-10.8)
[2023-12-10 13:48] LABS: ALT 45 U/L (16-63); AST 46 U/L (15-37); Albumin 3.5 g/dL (3.4-5.0); Alkaline Phosphatase 157 U/L (46-116); Anion Gap 7.5 mmol/L (3-11); BUN 10 mg/dL (7-18); Bilirubin, Total 0.5 mg/dL (0.2-1.0); CO2 29.5 mmol/L (21.0-32.0); CREATININE 1.1 mg/dL (0.70-1.30); Calcium 9.2 mg/dL (8.5-10.1); Chloride 103 mmol/L (98-107); Glucose 105 mg/dL (74-106); Potassium 3.9 mmol/L (3.5-5.1); Sodium 140 mmol/L (136-145); Total Protein 7.8 g/dL (6.4-8.2)
== END 2023-12-10 03:21 | disposition home or self-care (01) ==
LOC: LBO 03:21
PROVIDERS: PCP Physician Assistant; Visit Provider Internal Medicine Hematology & Oncology
DX: C21.0 Malignant neoplasm of anus, unspecified (principal)
CPT/HCPCS: 36415; 80053; 85025

== ENCOUNTER 2024-01-11 15:19 | Outpatient (REF) | payer MEDICAID, SELFPAY ==
[2024-01-11 12:58] LABS: *AMPHETAMINES SCREEN URINE Negative (Negative); *BARBITURATES SCREEN URINE Negative (Negative); *BENZODIAZEPINES SCREEN URINE Negative (Negative); Cannabinoids THC Positive (Negative); Cocaine Screen,Urine Negative (Negative); METHADONE URINE SCREEN Negative (Negative); OPIATES URINE SCREEN Positive (Negative); Tricyclic Antidepressants Negative (Negative)
[2024-01-12 17:09] LABS: Ethyl Glucuronide Screen, U Negative
== END 2024-01-11 15:20 | disposition home or self-care (01) ==
LOC: LBN 15:19
PROVIDERS: PCP Physician Assistant; Referring Provider Family Medicine; Visit Provider Family Medicine
DX: Z79.899 Other long term (current) drug therapy (principal); G89.3 Neoplasm related pain (acute) (chronic); F10.11 Alcohol abuse, in remission
CPT/HCPCS: 80307

== ENCOUNTER → 2024-01-12 04:20 | Outpatient (CLI) | payer MEDICAID, SELFPAY ==
[2024-01-12 13:35] LABS: Abs Immature Grans 0.06 10^3/uL (0.0-0.06); Absolute Basophil Count 0.04 10^3/uL (0.0-0.2); Absolute Eosinophil Count 0.16 10^3/uL (0.0-0.7); Absolute Lymphocyte Count 0.45 10^3/uL (1.2-3.4); Absolute Monocyte Count 0.84 10^3/uL (0.1-0.8); Absolute Neutrophil Count 8.32 10^3/uL (1.2-6.7); Basophils % 0.4; Eosinophils % 1.6; HCT 34.2 % (40.0-50.0); HGB 11.1 g/dL (13.5-17.5); Immature Grans % 0.6; Lymphocytes % 4.6; MCH 29.9 pg (27.0-33.0); MCHC 32.5 % (32.0-36.0); MCV 92 fL (80-95); MPV 8.2 fL (8.0-11.0); Monocytes % 8.5; Neutrophils % 84.3; Platelet Count 235 10^3/uL (130-400); RBC 3.71 10^6/uL (4.36-5.78); RDW 14.5 % (11.8-14.1); RDW-SD 49.3 fL; WBC 9.87 10^3/uL (4.4-10.8)
[2024-01-12 13:52] LABS: ALT 35 U/L (16-63); AST 36 U/L (15-37); Albumin 2.9 g/dL (3.4-5.0); Alkaline Phosphatase 156 U/L (46-116); Anion Gap 7.8 mmol/L (3-11); BUN 13 mg/dL (7-18); Bilirubin, Total 0.3 mg/dL (0.2-1.0); CO2 30.2 mmol/L (21.0-32.0); CREATININE 0.9 mg/dL (0.70-1.30); Calcium 8.9 mg/dL (8.5-10.1); Chloride 99 mmol/L (98-107); Estimated GFR 96.57 (mL/min/1.73m2); Glucose 87 mg/dL (74-106); Potassium 3.7 mmol/L (3.5-5.1); Sodium 137 mmol/L (136-145)
[2024-01-12] MEDS: Normal Saline - Diluent 50 ML VIAL IJ (14:03)
[2024-01-12] MEDS: Omnipaque 350 MG/ML 100 ML BTL IJ (14:04)
--- NOTE | 2024-01-12 14:17 | DI.CT_ITS ---
Exam(s) CT CHEST W EXAM: CT CHEST W CLINICAL HISTORY: ANAL CA,C21.0,F/U ABNL CHEST CT,r93.89,+FOR INFLUENZA,RE-EVALUATE,NODULAR TECHNIQUE: Imaging Protocol: Axial computed tomography images with coronal and sagittal reformatted images were created and reviewed CONTRAST MATERIAL: Intravenous: Omnipaque 350 Contrast volume:7 ml. COMPARISON: CT CT CHEST PE ABD PELVIS W from 12/09/2023 FINDINGS: Pulmonary parenchyma: Clearing of previously noted bilateral infiltrates. Mild apical scarring. No consolidation. No dominant measurable mass. Mild emphysematous changes. Tracheobronchial tree: No bronchiectasis or mucous plugging. Mediastinum and Priscila: No dominant adenopathy or fluid collection. Pleura: No effusion. No pneumothorax. Heart: The heart is not dilated. No coronary artery calcifications are seen. Aorta: Thoracic aorta non-dilated. Mild atherosclerotic changes. Upper abdomen: No acute findings.. Bones: Degenerative changes in the spine. Soft tissues: Unremarkable. IMPRESSION: Interval clearing of previously noted nodular infiltrates. Underlying mild emphysematous changes. M ild apical scarring. RADIATION DOSE DELIVERED: Total DLP DATA REPOSITORY: All CT scans at this facility are submitted to the National Radiology Data Registry (NRDR) Dose Index Registry (DIR) with the [employer] ([employer]). RADIATION OPTIMIZATION: All CT scans at this facility use at least one of these dose optimization te chniques: automated exposure control; mA and/or kV adjustment per patient size (includes targeted exa ms where dose is matched to clinical indication); or iterative reconstruction.
== END ==
PROVIDERS: Internal Medicine Hematology & Oncology; PCP Physician Assistant; Visit Provider Nurse Practitioner Family
DX: C21.0 Malignant neoplasm of anus, unspecified (principal); R93.89 Abnormal findings on diagnostic imaging of other specified body structures
CPT/HCPCS: 80053; 71260; 85025; J3490

== ENCOUNTER 2024-01-24 17:03 | Inpatient (IN) | payer MEDICAID, SELFPAY ==
[2024-01-24 17:08] VITALS: BP 120/80; PULSE 112; RESP 18; TEMP 37.4; O2SAT 97
[2024-01-24] MEDS: MORPHine 10 MG/ML VIAL 6 MG IVP ×2 (17:59→20:43)
[2024-01-24 18:01] VITALS: O2SAT 98
[2024-01-24 18:03] LABS: Lactate 1.4 mmol/L (0.6-1.4)
[2024-01-24 18:05] LABS: Abs Immature Grans 0.15 10^3/uL (0.0-0.06); Absolute Lymphocyte Count 0.39 10^3/uL (1.2-3.4); Absolute Monocyte Count 1.09 10^3/uL (0.1-0.8); Basophils % 0.1; Eosinophils % 0.1; HCT 33.6 % (40.0-50.0); HGB 10.7 g/dL (13.5-17.5); Lymphocytes % 2.7; MCH 29.4 pg (27.0-33.0); MCHC 31.8 % (32.0-36.0); MCV 92 fL (80-95); MPV 8.4 fL (8.0-11.0); Monocytes % 7.6; Neutrophils % 88.5; Platelet Count 327 10^3/uL (130-400); RBC 3.64 10^6/uL (4.36-5.78); RDW 14.4 % (11.8-14.1); RDW-SD 49.4 fL
[2024-01-24 18:06] LABS: Absolute Basophil Count 0.01 10^3/uL (0.0-0.2); Absolute Eosinophil Count 0.01 10^3/uL (0.0-0.7); Absolute Neutrophil Count 12.74 10^3/uL (1.2-6.7); ESR 64 mm/hr (0-20)
[2024-01-24] MEDS: Normal Saline - Diluent 50 ML VIAL IJ (18:10)
[2024-01-24] MEDS: Omnipaque 350 MG/ML 100 ML BTL IJ (18:11)
[2024-01-24 18:16] LABS: INR 1.2 (0.9-1.1); Prothrombin Time 11.5 sec (9.1-11.1)
--- NOTE | 2024-01-24 18:24 | DI.CT_ITS ---
Exam(s) CT PELVIC W EXAM: CT PELVIC W CLINICAL HISTORY: anal cancer wound. TECHNIQUE: Imaging Protocol: Axial computed tomography images with coronal and sagittal reformatted images were created and reviewed. CONTRAST MATERIAL: Intravenous: Omnipaque 350 Contrast volume:structured data in ml Contrast route:I V - Oral: no COMPARISON: CT CT CHEST PE ABD PELVIS W from 12/09/2023 FINDINGS: Bladder: No gross wall thickening. No stones.No evidence of mass. Bowel: Circumferential wall thickening of the rectum. Exophytic mass extending inferior to the anal verge again noted to appear stable. No obstruction or bowel wall thickening. Peritoneal cavity: No ascites, collection or mesenteric inflammatory response. Reproductive: Unremarkable. Soft tissues: Roughly 3 x 2.5 by 6 centimeter abscess collection is noted lateral and posterior to th e right ischium. There is a skin wound seen inferiorly, adjacent to the medial aspect of the inferio r right ischial tuberosity, roughly unchanged from prior. Left-sided colostomy at the level of the umbilicus is unremarkable. Bones: There are small areas of cortical erosion adjacent to the abscess lateral to the ischium. The re is also additional area of bony erosion adjacent to the soft tissue wound at the inferior right is chium. IMPRESSION: Soft tissue wound at the inferior medial right gluteal fold. Adjacent bony erosion. Deep abscess seen lateral to the right ischium. Also likely mild bony destruction. Stable exophytic anal mass and rectal wall thickening. Findings called to Dr. Campos of the emergency department. RADIATION DOSE DELIVERED: Total DLP DATA REPOSITORY: All CT scans at this facility are submitted to the National Radiology Data Registry (NRDR) Dose Index Registry (DIR) with the [employer] ([employer]CR). RADIATION OPTIMIZATION: All CT scans at this facility use at least one of these dose optimization te chniques: automated exposure control; mA and/or kV adjustment per patient size (includes targeted exa ms where dose is matched to clinical indication); or iterative reconstruction.
[2024-01-24 18:29] LABS: ALT 31 U/L (16-63); AST 36 U/L (15-37); Albumin 2.5 g/dL (3.4-5.0); Alkaline Phosphatase 156 U/L (46-116); Anion Gap 8.1 mmol/L (3-11); BUN 10 mg/dL (7-18); Bilirubin, Total 0.4 mg/dL (0.2-1.0); C-Reactive Protein 8.04 mg/dL (<or=0.5); CO2 28.9 mmol/L (21.0-32.0); CREATININE 0.9 mg/dL (0.70-1.30); Calcium 8.9 mg/dL (8.5-10.1); Chloride 99 mmol/L (98-107); Estimated GFR 96.57 (mL/min/1.73m2); Glucose 113 mg/dL (74-106); Potassium 3.8 mmol/L (3.5-5.1); Sodium 136 mmol/L (136-145); Total Protein 7.7 g/dL (6.4-8.2)
[2024-01-24 18:38] LABS: Procalcitonin 0.1 ng/mL
[2024-01-24] MEDS: Nicotine 21 MG/24 HR PATCH TD (19:50)
[2024-01-24] MEDS: PIPERACILLIN/TAZO 4.5 GM in Normal Saline 100 ML IVPB (19:51)
--- NOTE | 2024-01-24 19:57 | W.ED.GENAD ---
Discharge Plan Disposition Patient Disposition: Admit to [facility] Condition: Stable Discharge Details Chief Complaint: Cellulitis Clinical Impression: Pelvic abscess in male, Skin ulcer of perineum with fat layer exposed, Cancer related pain, Anal squamous cell carcinoma Primary Care Provider: Sah Ramos ED Provider: Marquita Campos Home Meds and New Rx's Prescriptions: No Action oxycodone 15 mg tablet 15 - 30 mg PO Q4H MDD 8 pills PRN (Reason: pain) Qty: 240 0RF Xtampza ER 18 mg cap,sprinkl,ER12hr(DONT CRUSH) 18 mg PO BID MDD 2 pills Qty: 60 0RF Rx Instructions: must administer with a meal/food oxycodone 15 mg tablet 15 - 30 mg PO Q4H MDD 8 pills PRN (Reason: pain) Qty: 240 0RF silver sulfadiazine 1 % cream 1 applic topical QID Rx Instructions: apply a 1.5 mm thickness lidocaine HCl 4 % cream 1 applic topical Q4H PRN PRN HPI General Date/Time Provider Initiated Documentation: 01/24/24 17:06. Limitations to Documentation: no limitations. Information obtained by: patient. HPI Narrative: 63-year-old gentleman with past medical history including anal cancer, status post chemotherapy and radiation presents for evaluation of unhealing wound. Patient referred to the emergency department for evaluation by the cancer center. Patient has not had surgical resection yet. He reports that he has had this wound for some time and it has not been healing. He has followed with wound care. He does local wound care at home. Over the last week, his symptoms have significantly worsened. He reports swelling and pain in his right leg. The pain is so severe he has difficulty walking. He states that the oxycodone is not helping. He reports the drainage has increased. He denies any fever. Related Data Home Medications Medication Instructions Recorded Confirmed lidocaine HCl 4 % topical cream 1 applic topical Q4H PRN PRN 12/03/23 01/24/24 silver sulfadiazine 1 % topical 1 applic topical QID 12/03/23 01/24/24 cream oxycodone 15 mg tablet 15 - 30 mg (1 - 2 x 15 mg) PO Q4H 12/14/23 01/24/24 PRN pain #240 tabs oxycodone 15 mg tablet 15 - 30 mg (1 - 2 x 15 mg) PO Q4H 01/11/24 01/24/24 PRN pain #240 tabs oxycodone myristate 18 mg capsule 18 mg PO BID #60 caps 01/11/24 01/24/24 sprinkle extended release 12hr(DON'T CRUSH) (Xtampza ER) Previous Rx's Medication Instructions Recorded oxycodone 15 mg tablet 15 - 30 mg (1 - 2 x 15 mg) PO Q4H 12/14/23 PRN pain #240 tabs oxycodone 15 mg tablet 15 - 30 mg (1 - 2 x 15 mg) PO Q4H 01/11/24 PRN pain #240 tabs oxycodone myristate 18 mg capsule 18 mg PO BID #60 caps 01/11/24 sprinkle extended release 12hr(DON'T CRUSH) (Xtampza ER) Allergies Allergy/AdvReac Type Severity Reaction Status Date / Time No Known Allergies Allergy Unverified 01/24/24 17:14 General Stated Complaint: Cellulitis WENDY: 3 Exam Narrative Exam Narrative: Review of Systems: All systems reviewed & are unremarkable except as noted in HPI and below Well-developed, no acute distress NCAT PERRL, normal conjunctiva RRR Unlabored respiratory effort Nondistended abdomen , ostomy in place area with significant skin changes secondary to radiation, there are many lesions and wounds, there is a large open wound on the right gluteal area that is draining, no apparent surrounding cellulitis, there is significant tenderness this entire area No appreciable crepitus No rashes or lesions. no focal neurologic deficits Appropriate mood and affect Course Vital Signs Vital signs: Vital Signs Temperature 37.4 C 01/24/24 17:08 Pulse 112 H 01/24/24 17:08 Respiratory Rate 18 01/24/24 17:08 Blood Pressure 120/80 01/24/24 17:08 Pulse Oximetry 97 01/24/24 17:08 Temperature 37.4 C 01/24/24 17:08 Temperature Source Temporal Artery Scan 01/24/24 17:08 Pulse 112 H 01/24/24 17:08 Respiratory Rate 18 01/24/24 17:08 Respiratory Effort Normal, Non-Labored 01/24/24 18:01 Blood Pressure 120/80 01/24/24 17:08 Pulse Oximetry 98 01/24/24 18:01 Oxygen Delivery Method Room Air 01/24/24 18:01 Pain Level 3 01/24/24 18:01 Comment pre MSO4 admin but took home meds [employer]LEHE[employer]OR 01/24/24 18:01 Lab/Test Results Lab/Test Results: 01/24/24 19:09 Blood Blood Culture - Pending 01/24/24 17:51 Blood Blood Culture - Pending Laboratory Tests Range/Units 01/24/24 17:51 WBC (4.4-10.8) 10^3/uL 14.40 H RBC (4.36-5.78) 10^6/uL 3.64 L Hgb (13.5-17.5) g/dL 10.7 L Hct (40.0-50.0) % 33.6 L MCV (80-95) fL 92 MCH (27.0-33.0) pg 29.4 MCHC (32.0-36.0) % 31.8 L RDW (11.8-14.1) % 14.4 H Plt Count (130-400) 10^3/uL 327 MPV (8.0-11.0) fL 8.4 Immature Gran % 1.0 Neutrophils % 88.5 Lymphocytes % 2.7 Monocytes % 7.6 Eosinophils % 0.1 Basophils % 0.1 Nucleated RBC % (0.0-0.3) % 0.0 Absolute Neutrophils (1.2-6.7) 10^3/uL 12.74 H Absolute Lymphocytes (1.2-3.4) 10^3/uL 0.39 L Absolute Monocytes (0.1-0.8) 10^3/uL 1.09 H Absolute Eosinophils (0.0-0.7) 10^3/uL 0.01 Absolute Basophils (0.0-0.2) 10^3/uL 0.01 ESR (0-20) mm/hr 64 H PT (9.1-11.1) sec 11.5 H INR (0.9-1.1) 1.2 H VBG Lactate (0.6-1.4) mmol/L 1.4 Sodium (136-145) mmol/L 136 Potassium (3.5-5.1) mmol/L 3.8 Chloride (98-107) mmol/L 99 Carbon Dioxide (21.0-32.0) mmol/L 28.9 Anion Gap (3-11) mmol/L 8.1 BUN (7-18) mg/dL 10 Creatinine (0.70-1.30) mg/dL 0.9 Est GFR (CKD-EPI 2020) (mL/min/1.73m2) 96.57 Glucose (74-106) mg/dL 113 H Calcium (8.5-10.1) mg/dL 8.9 Total Bilirubin (0.2-1.0) mg/dL 0.4 AST (15-37) U/L 36 ALT (16-63) U/L 31 Alkaline Phosphatase (46-116) U/L 156 H C-Reactive Protein (<or=0.5) mg/dL 8.04 H Total Protein (6.4-8.2) g/dL 7.7 Albumin (3.4-5.0) g/dL 2.5 L Procalcitonin ng/mL 0.1 Medical Decision Making Emergent evaluation of unhealing wound. Initial differential includes cellulitis, deep space abscess, malignancy recurrence Examination reveals significant changes to the area. He has not had surgical work section of his malignancy. He has not had fever but having worsening pain and drainage, suspicious for infection. Lab work obtained, he has a slightly elevated white blood cell count, stable anemia ESR and CRP are elevated. His procalcitonin is not elevated. A CT scan of the area was obtained. I discussed this CT with radiology. concern for abscess with bony erosion. Discussed CT findings with general surgery. Recommends admission with IV antibiotics. Patient updated on findings and plan. Medical Records Medical records reviewed: Yes I reviewed the patient's medical records. Lab Data Lab results reviewed: Yes I reviewed the patient's lab results. 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) Housing insecurity (Acute) Food insecurity (Acute) 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 COPD (chronic obstructive pulmonary disease) (Chronic) Hypoalbuminemia due to protein-calorie malnutrition (Acute) Microcytic anemia (Acute) Smoker (Acute) Medical History ETOH abuse Resolved February 2023 Surgical History Status post radiation therapy Family History Other Cancer Social History Smoking/Tobacco Use Status: Current every day Tobacco Type: cigarettes Smoking risk assessment performed?: Yes Alcohol Intake: former Drug use: Rarely Substance use type: marijuana Housing: apartment Do you feel safe at home: Yes Do you feel safe in your relationship?: Yes
[2024-01-24] MEDS: VANCOMYCIN 1,000 MG in Normal Saline 250 ML 166.6666 MG IVPB (20:31)
[2024-01-24] MEDS: oxyCODONE 15 MG TAB PO (22:13)
[2024-01-24] MEDS: MORPHine 2 MG/ML SYR IVP (22:13)
[2024-01-24] MEDS: Enoxaparin 40 MG/0.4 ML SYR SC (22:14)
[2024-01-24 23:46] VITALS: BP 96/61; PULSE 87; RESP 18; TEMP 37.2; O2SAT 96
[2024-01-25] MEDS: MORPHine 2 MG/ML SYR IVP ×7 (01:20→21:45)
[2024-01-25] MEDS: oxyCODONE 15 MG TAB PO ×4 (02:21→23:06)
[2024-01-25] MEDS: PIPERACILLIN/TAZO 3.375 GM in Normal Saline 50 ML IVPB ×4 (02:21→19:44)
[2024-01-25 07:53] VITALS: BP 95/59
[2024-01-25 08:14] VITALS: BP 83/48; PULSE 85; RESP 18; TEMP 36.4; O2SAT 96
[2024-01-25] MEDS: Normal Saline Flush 10 ML SYR IVP ×6 (08:41→19:44)
[2024-01-25] MEDS: Silver sulfaDIAZINE 1% 25 GM TUBE TP ×2 (08:48→17:44)
[2024-01-25 10:28] VITALS: BP 86/46
--- NOTE | 2024-01-25 10:32 | W.SURGCON ---
Date of service: 01/25/24 Time of Service: 10:32 Assessment and Plan Assessment and plan (1) Cancer cachexia: Status: Acute (2) Pelvic abscess in male: Status: Acute Assessment and plan: - Antibiotics; Zosyn Pulmonary toilet DVT-Lovenox being held for procedure Nutritional support Local wound care Plan IR drainage on Wednesday. Patient will need transport arranged This document was created with voice activated software and may contain errors. 60 mins spent with the patient today. (3) Abnormal weight loss: Status: Acute (4) History of alcohol abuse: Status: Acute (5) High risk medication use: Status: Acute (6) Anal squamous cell carcinoma: Status: Acute (7) Cancer related pain: Status: Acute (8) Skin ulcer of perineum with fat layer exposed: Status: Acute (9) COPD (chronic obstructive pulmonary disease): Status: Chronic (10) Smoker: Status: Acute (11) Intestinal stoma prolapse: Status: Acute (12) Colostomy in place: Status: Chronic History of Present Illness Narrative: Patient is a 63-year-old male well-known to me. He has a history of anal cancer. He completed and April 2023. He had a follow-up appointment at [facility] [place] yesterday. He was complaining of increased swelling and pain in his right leg. The pain is so severe he has difficulty walking. He states that the oxycodone is not helping. He reports the drainage has increased. He denies any fever. He still has an area of tumor versus excoriated skin from the radiation. He underwent a CT scan and was found to have a abscess. Patient also reports prolapsing of the stoma. He has a longstanding history of smoking. He also has pretty significant cancer cachexia. CT: Soft tissues: Roughly 3 x 2.5 by 6 centimeter abscess collection is noted lateral and posterior to the right ischium. There is a skin wound seen inferiorly, adjacent to the medial aspect of the inferior right ischial tuberosity, roughly unchanged from prior. Left-sided colostomy at the level of the umbilicus is unremarkable. Bones: There are small areas of cortical erosion adjacent to the abscess lateral to the ischium. There is also additional area of bony erosion adjacent to the soft tissue wound at the inferior right ischium. I did ultrasound the area but I was not able to get deep enough to visualize the abscess. I did talk to IR at [facility] and they feel that they can get a catheter in there for drainage. This will be arranged for tomorrow as a down and back with ambulance transfer Patient is on Zosyn. 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) Housing insecurity (Acute) Food insecurity (Acute) 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 COPD (chronic obstructive pulmonary disease) (Chronic) Hypoalbuminemia due to protein-calorie malnutrition (Acute) Microcytic anemia (Acute) Smoker (Acute) Medical History ETOH abuse Resolved February 2023 Surgical History Status post radiation therapy Family History Other Cancer Social History Smoking/Tobacco Use Status: Current every day Tobacco Type: cigarettes Smoking risk assessment performed?: Yes Alcohol Intake: former Drug use: Rarely Substance use type: marijuana Housing: apartment Do you feel safe at home: Yes Do you feel safe in your relationship?: Yes Exam Narrative Exam Narrative: PHYSICAL EXAM GENERAL APPEARANCE: Alert, healthy appearance, oriented, x 3,? in no acute distress HYDRATION: Well hydrated HEAD, EYES, EARS, NECK, THROAT: Head is normocephalic, pupils equal, round, reactive to light and accommodation, ocular movement intact, sclera clear and no jaundice. ?Dentition -poor. no thrush LUNGS: normal respiration/normal chest excursion. ?few expiratory wheeze ?HEART: Regular rate and rhythm. no murmurs EXTREMITY: No edema or cyanosis.? + leg pain, No: redness, swelling.? muscle wasting ABDOMEN: soft and non-tender to palpation.? Normal bowel sounds.? stoma pink/patent/productive. no active prolapse. : US done- could not localize abscess. open draining wound from anal cancer- chronic Results Last Vital Signs Temp 36.4 C L 01/25/24 08:14 Pulse 85 01/25/24 08:14 Resp 18 01/25/24 08:14 BP 83/48 L 01/25/24 08:14 Pulse Ox 96 01/25/24 08:14 Labs 01/24/24 17:51 01/24/24 17:51 Labs: Laboratory Results - last 24 hr 01/24/24 17:51 WBC 14.40 H RBC 3.64 L Hgb 10.7 L Hct 33.6 L MCV 92 MCH 29.4 MCHC 31.8 L RDW 14.4 H Plt Count 327 MPV 8.4 Immature Gran % 1.0 Neutrophils % 88.5 Lymphocytes % 2.7 Monocytes % 7.6 Eosinophils % 0.1 Basophils % 0.1 Nucleated RBC % 0.0 Absolute Neutrophils 12.74 H Absolute Lymphocytes 0.39 L Absolute Monocytes 1.09 H Absolute Eosinophils 0.01 Absolute Basophils 0.01 ESR 64 H PT 11.5 H INR 1.2 H VBG Lactate 1.4 Sodium 136 Potassium 3.8 Chloride 99 Carbon Dioxide 28.9 Anion Gap 8.1 BUN 10 Creatinine 0.9 Est GFR (CKD-EPI 2020) 96.57 Glucose 113 H Calcium 8.9 Total Bilirubin 0.4 AST 36 ALT 31 Alkaline Phosphatase 156 H C-Reactive Protein 8.04 H Total Protein 7.7 Albumin 2.5 L Procalcitonin 0.1
[2024-01-25] MEDS: Normal Saline 500 ML 1000 ML IV (10:36)
[2024-01-25 11:14] VITALS: BP 98/54; PULSE 87
[2024-01-25 11:51] LABS: Lab Add On Test DONE
--- NOTE | 2024-01-25 12:27 | TELEFU_ITS ---
Date of service: 01/25/24 Time of Service: 11:40 Nutrition Note NOTE: Assessment Mr Yin is a 63yo male who is a current smoker with COPD and insecurities of housing, food and transportation. History of anal squamous cell carcinoma with cancer related catexia/wt loss of 4.9kg over the last 6 months (7.2% of his body weight). Colostomy in place. Pt is ordered for regular diet with normal consistencies - high protein and high calorie with ensure drinks between meals BID. Pt awake and laying in bed on his side upon my visit. Breakfast tray still in his room with 100% eaten of cheerios, oj, coffee and 1/2 glass of milk. Asked about lunch for him and he brushed it off - doesn't remember ordering it and no interested in it when I offered to take his meal order and call it down. He settled on a half chicken salad sandwich with some random sides I offered. Asked if he would take any extra nutrition ONS drinks with or outside of meals and he declined insistently. Offered why protein smoothie made in the kitchen for more palatable a choice and he will trial it. Visual nutrition focused physical exam shows: moderate to severe fat loss in orbital, cheek (buccal fat pads) areas, moderate muscle loss to the rastafarian region, anterior thigh/patellar and posterior calf region. Estimated energy needs: 1708kcals (REEx1.3AF) for wt loss prevention, 76g protein (1.2g/kg) and 1708cc fluid (1cc per required kcal) Nutrition Diagnosis Moderate malnutrition in the context of chronic disease and social/environmental related as evidenced by pt's lack of transportation and insecurities of housing and food and his history of cancer with mild to moderate fat loss and muscle wasting. Intervention Attempted education on high kcal/protein diet - pt not very receptive - got out of bed with great difficulty and started pacing around the room. will trial why protein smoothie today at 2pm and continue BID between meals if accepted and continue offering a variety of ONS choices. Suggest ordering liquid protein concentrate TID for additional 45g protein per day REcommend daily weight checks If pt's intake remains low and further wt loss occurs, would suggest conversation about enteral feeding and his wishes as it pertains to supplemental artificial nutrition support. Monitoring Will monitor pt acceptance and tolerance of ONS Will monitor wt, labs, po intake Time Spent in Nutritional Counseling and Treatment: 15 minutes
[2024-01-25 13:10] LABS: Ferritin 903 ng/mL (26-388); Folate 14.7 ng/mL (8.6-20.0); Vitamin B12 389 pg/mL (193-986)
--- NOTE | 2024-01-25 13:32 | PDOC.CMIN ---
Date of service: 01/25/24 Time of Service: 13:33 Care Management Initial Assmt Initial Assessment REASON FOR HOSPITALIZATION:: Abnormal Weight loss, Alondra rectal abscess PREVIOUS FUNCTIONAL STATUS/SOCIAL/FAMILY SUPPORTS:: Ronaldo lives alone in [place]. His sister, friends or landlord provide transportation since he no longer drives. No further info is obtained at this time, per pts preference. CURRENT FUNCTIONAL STATUS:: Ronaldo was laying in bed when CM met with him. He is awake and engages in conversation, minimally. His biggest concern at this time is that his nicotine patch is not working, RN aware. At this time, CM is unable to access for housing and food insecurities, patient emphasizes that he met with [facility] at [facility] in that past but he does not need any resources at this time. ADVANCE DIRECTIVES:: None on file Has patient been provided with info about the portal/API?: Yes Did the patient sign up for the portal?: No CODE STATUS:: Full Code INSURANCE COVERAGE / FINANCIAL ISSUES:: Medicaid CURRENT HOME/COMMUNITY SERVICES/EQUIPMENT:: [facility] RN for Wound care, last home visit was 01/20/[address] Loyola at Palliative care in 2023 Followed by [facility] PRIMARY CARE PHYSICIAN:: Sha Ramos POTENTIAL DISCHARGE NEEDS:: Resumption of [facility] RN (may benefit from add HEAD OF QUALITY) Discharge plan of care, follow up with PCP and providers at [facility] PATIENT/FAMILY EDUCATION NEEDS:: Review discharge instructions, limitations, medications and plan to follow up with community providers. Discuss ask me three and goals of self care. ANTICIPATED BARRIERS TO DISCHARGE:: None identified TRANSPORTATION:: Via private vehicle with sister or friend PLAN:: Down and back procedure with [facility] for an I&D of his rectal abscess is planned for tomorrow. CM will continue to follow. 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) Housing insecurity (Acute) Food insecurity (Acute) 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 COPD (chronic obstructive pulmonary disease) (Chronic) Hypoalbuminemia due to protein-calorie malnutrition (Acute) Microcytic anemia (Acute) Smoker (Acute) Medical History ETOH abuse Resolved February 2023 Surgical History Status post radiation therapy Family History Other Cancer Social History Smoking/Tobacco Use Status: Current every day Tobacco Type: cigarettes Smoking risk assessment performed?: Yes Alcohol Intake: former Drug use: Rarely Substance use type: marijuana Housing: apartment Do you feel safe at home: Yes Do you feel safe in your relationship?: Yes SDOH(Care Management) Screening Will the Patient Participate in the Screening?: Yes Do you worry about having a steady place to live?: no In the past 12 months, have you had to go without electric, gas, oil or water in your home?: no Have you or anyone in your house had to go without enough food to eat?: no Has lack of transportation kept you from medical appointments or from doing things needed for daily living?: no Has anyone in your support network made you feel unsafe for any reason?: no
[2024-01-25] MEDS: Protein Nutritional Supplement 16 GM 1 OUNCE PACKET PO ×2 (14:04→19:44)
[2024-01-25] MEDS: Nicotine 21 MG/24 HR PATCH TD (14:21)
--- NOTE | 2024-01-25 14:56 | W.PM.HP.N ---
Date of service: 01/25/24 Time of Service: 14:56 Assessment and Plan Assessment and plan (1) History of alcohol abuse: Status: Acute (2) High risk medication use: Status: Acute (3) Advanced care planning/counseling discussion: Status: Acute (4) Abnormal weight loss: Status: Acute (5) Intestinal stoma prolapse: Status: Acute (6) Colostomy in place: Status: Chronic (7) Pelvic abscess in male: Status: Acute (8) Anal squamous cell carcinoma: Status: Acute Assessment and plan: Date of service: 01/25/24 Time of Service: 10:32 Assessment and Plan Assessment and plan (1) Cancer cachexia: Status: Acute (2) Pelvic abscess in male: Status: Acute Assessment and plan: - Antibiotics; Zosyn Pulmonary toilet DVT-Lovenox being held for procedure Nutritional support Local wound care Plan IR drainage on Wednesday. Patient will need transport arranged This document was created with voice activated software and may contain errors. 60 mins spent with the patient today. (3) Abnormal weight loss: Status: Acute (4) History of alcohol abuse: Status: Acute (5) High risk medication use: Status: Acute (6) Anal squamous cell carcinoma: Status: Acute (7) Cancer related pain: Status: Acute (8) Skin ulcer of perineum with fat layer exposed: Status: Acute (9) COPD (chronic obstructive pulmonary disease): Status: Chronic (10) Smoker: Status: Acute (11) Intestinal stoma prolapse: Status: Acute (12) Colostomy in place: Status: Chronic (9) Cancer related pain: Status: Acute (10) Skin ulcer of perineum with fat layer exposed: Status: Acute (11) COPD (chronic obstructive pulmonary disease): Status: Chronic (12) Cancer cachexia: Status: Acute (13) Smoker: Status: Acute (14) ETOH abuse: History of Present Illness Narrative: Patient is a 63-year-old male well-known to me. He has a history of anal cancer. He completed and April 2023. He had a follow-up appointment at [facility] yesterday. He was complaining of increased swelling and pain in his right leg. The pain is so severe he has difficulty walking. He states that the oxycodone is not helping. He reports the drainage has increased. He denies any fever. He still has an area of tumor versus excoriated skin from the radiation. He underwent a CT scan and was found to have a abscess. Patient also reports prolapsing of the stoma. He has a longstanding history of smoking. He also has pretty significant cancer cachexia. CT: Soft tissues: Roughly 3 x 2.5 by 6 centimeter abscess collection is noted lateral and posterior to the right ischium. There is a skin wound seen inferiorly, adjacent to the medial aspect of the inferior right ischial tuberosity, roughly unchanged from prior. Left-sided colostomy at the level of the umbilicus is unremarkable. Bones: There are small areas of cortical erosion adjacent to the abscess lateral to the ischium. There is also additional area of bony erosion adjacent to the soft tissue wound at the inferior right ischium. I did ultrasound the area but I was not able to get deep enough to visualize the abscess. I did talk to IR at [facility] and they feel that they can get a catheter in there for drainage. This will be arranged for tomorrow as a down and back with ambulance transfer Patient is on Zosyn. 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) Housing insecurity (Acute) Food insecurity (Acute) 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 COPD (chronic obstructive pulmonary disease) (Chronic) Hypoalbuminemia due to protein-calorie malnutrition (Acute) Microcytic anemia (Acute) Smoker (Acute) Medical History ETOH abuse Resolved February 2023 Surgical History Status post radiation therapy Family History Other Cancer Social History Smoking/Tobacco Use Status: Current every day Tobacco Type: cigarettes Smoking risk assessment performed?: Yes Alcohol Intake: former Drug use: Rarely Substance use type: marijuana Housing: apartment Do you feel safe at home: Yes Do you feel safe in your relationship?: Yes Meds Allergies and Home Medications Allergies Allergy/AdvReac Type Severity Reaction Status Date / Time No Known Allergies Allergy Unverified 01/24/24 17:14 Home Medications Medication Instructions Recorded Confirmed Type lidocaine HCl 4 % topical cream 1 applic topical Q4H PRN PRN 12/03/23 01/24/24 History silver sulfadiazine 1 % topical 1 applic topical QID 12/03/23 01/24/24 History cream oxycodone 15 mg tablet 15 - 30 mg (1 - 2 x 15 mg) PO Q4H 12/14/23 01/24/24 Rx PRN pain #240 tabs oxycodone 15 mg tablet 15 - 30 mg (1 - 2 x 15 mg) PO Q4H 01/11/24 01/24/24 Rx PRN pain #240 tabs oxycodone myristate 18 mg capsule 18 mg PO BID #60 caps 01/11/24 01/24/24 Rx sprinkle extended release 12hr(DON'T CRUSH) (Xtampza ER) Exam Const Other: PHYSICAL EXAM GENERAL APPEARANCE: Alert, , oriented, x 3,? chronic pain. cachetic HYDRATION: Well hydrated HEAD, EYES, EARS, NECK, THROAT: Head is normocephalic, pupils equal, round, reactive to light and accommodation, ocular movement intact, sclera clear and no jaundice. ?Dentition -poor. no thrush LUNGS: normal respiration/normal chest excursion. ?few expiratory wheeze ?HEART: Regular rate and rhythm. no murmurs EXTREMITY: No edema or cyanosis.? + leg pain, No: redness, swelling.? muscle wasting ABDOMEN: soft and non-tender to palpation.? Normal bowel sounds.? stoma pink/patent/productive. no active prolapse. : US done- could not localize abscess. open draining wound from anal cancer- chronic Results Labs 01/24/24 17:51 01/24/24 17:51 Labs: Laboratory Results - last 24 hr 01/24/24 01/25/24 01/25/24 17:51 11:50 12:20 WBC 14.40 H RBC 3.64 L Hgb 10.7 L Hct 33.6 L MCV 92 MCH 29.4 MCHC 31.8 L RDW 14.4 H Plt Count 327 MPV 8.4 Immature Gran % 1.0 Neutrophils % 88.5 Lymphocytes % 2.7 Monocytes % 7.6 Eosinophils % 0.1 Basophils % 0.1 Nucleated RBC % 0.0 Absolute Neutrophils 12.74 H Absolute Lymphocytes 0.39 L Absolute Monocytes 1.09 H Absolute Eosinophils 0.01 Absolute Basophils 0.01 ESR 64 H PT 11.5 H INR 1.2 H VBG Lactate 1.4 Sodium 136 Potassium 3.8 Chloride 99 Carbon Dioxide 28.9 Anion Gap 8.1 BUN 10 Creatinine 0.9 Est GFR (CKD-EPI 2020) 96.57 Glucose 113 H Calcium 8.9 Ferritin 903 H Total Bilirubin 0.4 AST 36 ALT 31 Alkaline Phosphatase 156 H C-Reactive Protein 8.04 H Total Protein 7.7 Albumin 2.5 L Vitamin B12 389 Folate 14.7 Procalcitonin 0.1 Add-On Test Request DONE Last Vital Signs Temp 36.4 C L 01/25/24 08:14 Pulse 87 01/25/24 11:14 Resp 18 01/25/24 08:14 BP 98/54 L 01/25/24 11:14 Pulse Ox 96 01/25/24 08:14 Time Spent Time spent with Patient: 55-74 minutes Time was spent: preparing to see the patient(eg.review tests), obtaining and/or reviewing separately otained hiistory, ordering medications,tests, procedures, referring, communicating with other health point of care technician, indepentently interpreting results, counseling the patient and care coordination
[2024-01-25] MEDS: Normal Saline 1,000 ML 80 ML IV ×2 (16:00→23:06)
[2024-01-25 16:18] VITALS: BP 98/58; PULSE 85; RESP 18; O2SAT 95
[2024-01-25 23:07] VITALS: BP 98/58; PULSE 78; RESP 16; TEMP 37.6; O2SAT 95
[2024-01-26] MEDS: PIPERACILLIN/TAZO 3.375 GM in Normal Saline 50 ML IVPB ×2 (03:16→08:28)
[2024-01-26] MEDS: oxyCODONE 15 MG TAB PO ×2 (03:20→12:27)
[2024-01-26] MEDS: Nicotine 4 MG GUM CH (03:25)
[2024-01-26] MEDS: MORPHine 2 MG/ML SYR IVP ×2 (04:39→07:39)
[2024-01-26] MEDS: Normal Saline Flush 10 ML SYR IVP ×2 (04:39→07:39)
[2024-01-26 06:16] LABS: Abs Immature Grans 0.09 10^3/uL (0.0-0.06); Absolute Basophil Count 0.02 10^3/uL (0.0-0.2); Absolute Lymphocyte Count 0.29 10^3/uL (1.2-3.4); Absolute Monocyte Count 0.92 10^3/uL (0.1-0.8); Basophils % 0.2; Eosinophils % 0.3; HCT 31.1 % (40.0-50.0); HGB 10.1 g/dL (13.5-17.5); Immature Grans % 0.8; Lymphocytes % 2.4; MCH 29.4 pg (27.0-33.0); MCHC 32.5 % (32.0-36.0); MCV 90 fL (80-95); MPV 8.5 fL (8.0-11.0); Monocytes % 7.7; Neutrophils % 88.6; Platelet Count 285 10^3/uL (130-400); RBC 3.44 10^6/uL (4.36-5.78); RDW 14.6 % (11.8-14.1); RDW-SD 48.2 fL; WBC 11.93 10^3/uL (4.4-10.8)
[2024-01-26 06:18] LABS: Absolute Eosinophil Count 0.04 10^3/uL (0.0-0.7); Absolute Neutrophil Count 10.57 10^3/uL (1.2-6.7)
[2024-01-26 06:28] LABS: C-Reactive Protein 11.04 mg/dL (<or=0.5)
[2024-01-26 07:30] VITALS: BP 101/53; PULSE 80; RESP 18; TEMP 37.1; O2SAT 96
[2024-01-26] MEDS: Nicotine 21 MG/24 HR PATCH TD (07:36)
--- NOTE | 2024-01-26 08:28 | CMPROGNOTE_ITS ---
Date of service: 01/26/24 Time of Service: 08:28 Care Management Progress Note Progress Note Text Progress Note Text: S/O: Ronaldo gibbs laying in bed watching TV when CM met with him. He verbalizes his awareness of the plan to go down and back to [facility] on Wednesday and expresses that he really doesn't want to stay here until Wednesday just laying in bed. He would like to go home and says he can get a ride to [facility] on Wednesday if he needs to. RN notified and Dr. Coronado will talk with patient at noon. A: 63 year old male admitted to [facility] on 01/25/24 for Alondra Rectal Abscess P: Down and back procedure with [facility] for an I&D of his rectal abscess is planned for Wednesday. CM will continue to follow. SDOH(Care Management) Screening Will the Patient Participate in the Screening?: Yes Do you worry about having a steady place to live?: no In the past 12 months, have you had to go without electric, gas, oil or water in your home?: no Have you or anyone in your house had to go without enough food to eat?: no Has lack of transportation kept you from medical appointments or from doing things needed for daily living?: no Has anyone in your support network made you feel unsafe for any reason?: no
--- NOTE | 2024-01-26 12:30 | NUR.NOTE ---
Pt asking for oxycodone by name, then stated he would like some morphine in about an hour, please Nursing Note:
--- NOTE | 2024-01-26 12:31 | W.PM.DSUDISC ---
Date of service: 01/26/24 Time of Service: 12:31 Discharge Plan Disposition Patient Disposition: Home W/Home Health Services Condition: Fair Discharge Details Reason For Visit: Alondra Rectal Abscess Admit Date/Time: 01/25/24 17:32 Admit Provider: Adin Coronado Attending Provider: Adin Coronado Primary Care Provider: Sha Ramos Hospital Course Hospital Course: Juanito is 63 years old. He is referred to the emergency department because of increased pain in his right leg associated with chronic wound. 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 Subsequent to the radiation, he developed a chronic wound in and around anal complex and ischium. 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 He was started on broad-spectrum antibiotics and admitted to the hospital. Consultation was placed down to [facility] CT-guided percutaneous drainage of the abscess. Unfortunately, they are not able to accommodate them on the schedule until this upcoming Wednesday. While awaiting the procedure, the patient had an improvement of his white blood cell count, and improvement of his pain. He was eager to be discharged home. Arrangements were made for outpatient drainage down at [facility], and the patient was assisted with arranging transport to and from the hospital. His antibiotics were switched over to ciprofloxacin, and he was discharged home with follow-up plan Home Meds and New Rx's Prescriptions: New ciprofloxacin HCl [Cipro] 500 mg tablet 500 mg PO BID Qty: 28 0RF Rx Instructions: take one tablet by mouth in the morning and one tablet by mouth in the evening. Continued oxycodone 15 mg tablet 15 - 30 mg PO Q4H MDD 8 pills PRN (Reason: pain) Qty: 240 0RF Xtampza ER 18 mg cap,sprinkl,ER12hr(DONT CRUSH) 18 mg PO BID MDD 2 pills Qty: 60 0RF Rx Instructions: must administer with a meal/food oxycodone 15 mg tablet 15 - 30 mg PO Q4H MDD 8 pills PRN (Reason: pain) Qty: 240 0RF silver sulfadiazine 1 % cream 1 applic topical QID Rx Instructions: apply a 1.5 mm thickness lidocaine HCl 4 % cream 1 applic topical Q4H PRN PRN Discharge Instructions Additional Instructions: Juanito, it was very nice meeting you while you are in the hospital, and I am sorry that you find yourself dealing with this infection. Like we talked about before your discharge, there is a fluid collection around the deep tissues of your right buttock, adjacent to the sciatic nerve. There is also some evidence of osteomyelitis, or infection of the adjacent bone. Although you have had a favorable response to the antibiotics thus far, definitive treatment of osteomyelitis typically involves drainage of the fluid, often times surgery to remove the infected tissue, and coverage of the area with healthy living tissue. Without a drain in place, I can only guess the best antibiotic coverage and hope that it continues to improve your symptoms. Therefore, I did place an order for an antibiotic called ciprofloxacin, which is typically used to treat osteomyelitis and other infections. You should take 1 pill in the morning and 1 pill in the evening every day. I placed the prescription for a total of 14 days of therapy, although definitive treatment will really depend upon how you respond to the drainage, and what bacteria are discovered in the cavity. As I mentioned before your discharge, we will arrange a follow-up appointment in our office just in case, but I do recommend that you reach out to your team at [facility] as they are much more familiar with your chronic wounds, and more capable of dealing with the sequelae of these wounds. If you need anything at all in the meantime, please do not hesitate to call us at any point. Referrals: Adin Coronado MD [ [facility] STAFF PHYSICIAN] - 02/09/24 8:00 am Activity:: Activity as Tolerated Equipment/Supplies:: No Equipment Needed Diet:: As Tolerated DS: Diagnosis Discharge Diagnosis (1) History of alcohol abuse: Status: Acute (2) High risk medication use: Status: Acute (3) Advanced care planning/counseling discussion: Status: Acute (4) Abnormal weight loss: Status: Acute (5) Intestinal stoma prolapse: Status: Acute (6) Colostomy in place: Status: Chronic (7) Pelvic abscess in male: Status: Acute (8) Anal squamous cell carcinoma: Status: Acute (9) Cancer related pain: Status: Acute (10) Skin ulcer of perineum with fat layer exposed: Status: Acute (11) COPD (chronic obstructive pulmonary disease): Status: Chronic (12) Cancer cachexia: Status: Acute (13) Smoker: Status: Acute (14) ETOH abuse:
--- NOTE | 2024-01-26 12:50 | CMDISCH_ITS ---
Date of service: 01/26/24 Time of Service: 12:50 LACE Index Scoring Tool Questions: Length of Stay (in days): 2 Was the patient admitted via the E.D.?: Yes Comorbidities: Chronic Pulmonary Disease (COPD) and Metastatic Solid Tumor (Anal Carcinoma, ) E.D. Visits: 3 Answers: Total Score: 13 Risk of Readmission: High Risk Care Management Discharge Plan Reason for Hospitalization: Abnormal Weight loss, Alondra rectal abscess Discharge Plan: Ronaldo is discharged home with resumption of [facility] RN services for wound care. He will be transported via private vehicle with a friend. Outpatient procedure at [facility] is scheduled for Wednesday01/28/24, 12pm in 3Z. Transportation to [facility] will be provided by [facility], down and back, coordinated by CM. Ronaldo is advised that he needs to contact [facility] tomorrow after 3pm to get his exact berry picker time. He will follow up with community providers and his discharge plan of care as instructed. Patient/Family Education Needs: Review discharge instructions, limitations, medications and plan for [facility] on Wednesday. Services Needed at Discharge: Home Health Care Services ([facility] care program director) [facility] Health Related Social Needs: No Data to Display
--- NOTE | 2024-01-26 12:50 | PDOC.CMDIS ---
Date of service: 01/26/24 Time of Service: 12:50 LACE Index Scoring Tool Questions: Length of Stay (in days): 2 Was the patient admitted via the E.D.?: Yes Comorbidities: Chronic Pulmonary Disease (COPD) and Metastatic Solid Tumor (Anal Carcinoma, ) E.D. Visits: 3 Answers: Total Score: 13 Risk of Readmission: High Risk Care Management Discharge Plan Reason for Hospitalization: Abnormal Weight loss, Alondra rectal abscess Discharge Plan: Ronaldo is discharged home with resumption of [facility] RN services for wound care. He will be transported via private vehicle with a friend. [place]patient [place] [facility] [place] Wednesday01/28/24, 12pm in 3Z. Transportation to [facility] will be provided by [facility], down and back, coordinated by CM. Ronaldo is advised that he needs to contact [facility] tomorrow after 3pm to get his exact pick up operator time. He will follow up with community providers and his discharge plan of care as instructed. Patient/Family Education Needs: Review discharge instructions, limitations, medications and plan for [facility] [place] Wednesday. Services Needed at Discharge: Home Health Care Services ([facility] acute care assistant) [facility] Health Related Social Needs: No Data to Display
== END 2024-01-26 13:48 | disposition home health service (06) | DRG 372 ==
LOC: ER 20:26 → MS 20:56
PROVIDERS: Surgery; Admitting Provider Surgery; Emergency Provider Emergency Medicine; PCP Physician Assistant; Visit Provider Surgery
DX: K65.1 Peritoneal abscess (principal); K94.09 Other complications of colostomy; Z68.1 Body mass index [BMI] 19.9 or less, adult; G89.3 Neoplasm related pain (acute) (chronic); L98.492 Non-pressure chronic ulcer of skin of other sites with fat layer exposed; J44.9 Chronic obstructive pulmonary disease, unspecified; F17.210 Nicotine dependence, cigarettes, uncomplicated; E88.A Wasting disease (syndrome) due to underlying condition; F10.11 Alcohol abuse, in remission; Z92.3 Personal history of irradiation; D50.9 Iron deficiency anemia, unspecified; Z79.899 Other long term (current) drug therapy; Z85.048 Personal history of other malignant neoplasm of rectum, rectosigmoid junction, and anus; M79.604 Pain in right leg; R60.0 Localized edema
CPT/HCPCS: 00123; 36415; 80053; 84145; 85652; 87040; 96365; 96366; 96368; 96372; 96375; 96376; 99285; J1650; 72193; 82607; 82728; 82746; 83605; 85025; 85610; 86140; G0378; J2270; J2543; J3370; J3490

== ENCOUNTER 2024-01-30 08:40 | Emergency (ER) | payer MEDICAID, SELFPAY ==
[2024-01-30 08:49] VITALS: BP 119/70; PULSE 110; RESP 18; TEMP 36.7; O2SAT 98
--- NOTE | 2024-01-30 17:16 | W.ED.GENAD ---
Discharge Plan Disposition Patient Disposition: Home Discharge Details Clinical Impression: Pelvic abscess in male Primary Care Provider: Sha Ramos ED Provider: Marquita Campos Home Meds and New Rx's Prescriptions: No Action oxycodone 15 mg tablet 15 - 30 mg PO Q4H MDD 8 pills PRN (Reason: pain) Qty: 240 0RF Xtampza ER 18 mg cap,sprinkl,ER12hr(DONT CRUSH) 18 mg PO BID MDD 2 pills Qty: 60 0RF Rx Instructions: must administer with a meal/food oxycodone 15 mg tablet 15 - 30 mg PO Q4H MDD 8 pills PRN (Reason: pain) Qty: 240 0RF silver sulfadiazine 1 % cream 1 applic topical QID Rx Instructions: apply a 1.5 mm thickness lidocaine HCl 4 % cream 1 applic topical Q4H PRN PRN ciprofloxacin HCl [Cipro] 500 mg tablet 500 mg PO BID Qty: 28 0RF Rx Instructions: take one tablet by mouth in the morning and one tablet by mouth in the evening. Discharge Instructions Additional Instructions: Your drain appears to be appropriately working today. The fluid amount may decrease as your wound continues to heal return with severe pain or fever Your upcoming appointments include February [address] Everett hematology oncology February 07 general surgery with [facility] Discharge Data Discharge Date/Time-TO BE ENTERED AT DEPARTURE: 01/30/24 09:43 [facility] General Date/Time Provider Initiated Documentation: 01/30/24 08:46. Limitations to Documentation: no limitations. Information obtained by: patient and old records reviewed. HPI Narrative: 63-year-old gentleman with past medical history including anal cancer and recent pelvic abscess that required IR drain placement presents for evaluation concerned that his CHRIS drain is not working. He reports that he had output in the drain yesterday, he emptied the drain. He reports is concerned that he was expecting to have more output today than he has noted. But he does report that the amount that he has had out today is more than he had out yesterday. He denies any fever he reports the baseline amount of pain, no worsened amount of pain. There are some tenderness at the insertion site of the drain. Related Data Home Medications Medication Instructions Recorded Confirmed lidocaine HCl 4 % topical cream 1 applic topical Q4H PRN PRN 12/03/23 01/30/24 silver sulfadiazine 1 % topical 1 applic topical QID 12/03/23 01/30/24 cream oxycodone 15 mg tablet 15 - 30 mg (1 - 2 x 15 mg) PO Q4H 12/14/23 01/30/24 PRN pain #240 tabs oxycodone 15 mg tablet 15 - 30 mg (1 - 2 x 15 mg) PO Q4H 01/11/24 01/30/24 PRN pain #240 tabs oxycodone myristate 18 mg capsule 18 mg PO BID #60 caps 01/11/24 01/30/24 sprinkle extended release 12hr(DON'T CRUSH) (Xtampza ER) ciprofloxacin HCl 500 mg tablet 500 mg PO BID #28 tabs 01/26/24 01/30/24 (Cipro) Previous Rx's Medication Instructions Recorded oxycodone 15 mg tablet 15 - 30 mg (1 - 2 x 15 mg) PO Q4H 12/14/23 PRN pain #240 tabs oxycodone 15 mg tablet 15 - 30 mg (1 - 2 x 15 mg) PO Q4H 01/11/24 PRN pain #240 tabs oxycodone myristate 18 mg capsule 18 mg PO BID #60 caps 01/11/24 sprinkle extended release 12hr(DON'T CRUSH) (Xtampza ER) ciprofloxacin HCl 500 mg tablet 500 mg PO BID #28 tabs 01/26/24 (Cipro) Allergies Allergy/AdvReac Type Severity Reaction Status Date / Time No Known Allergies Allergy Unverified 01/24/24 17:14 General Stated Complaint: GenMedical WENDY: 3 Exam Narrative Exam Narrative: Review of Systems: All systems reviewed & are unremarkable except as noted in HPI and below Cachectic, chronically ill-appearing NCAT PERRL, normal conjunctiva RRR Unlabored respiratory effort Nondistended abdomen area with cancer related changes, skin changes secondary to radiation, there is CHRIS drain in place, drain insertion site appears normal, mild tenderness, no significant concerns for cellulitis, fluctuance or swelling. There is serosanguineous fluid in the CHRIS drain No rashes or lesions. no focal neurologic deficits Appropriate mood and affect Course Vital Signs Vital signs: Vital Signs Temperature 36.7 C 01/30/24 08:49 Pulse 110 H 01/30/24 08:49 Respiratory Rate 18 01/30/24 08:49 Blood Pressure 119/70 01/30/24 08:49 Pulse Oximetry 98 01/30/24 08:49 Temperature 36.7 C 01/30/24 08:49 Temperature Source Temporal Artery Scan 01/30/24 08:49 Pulse 110 H 01/30/24 08:49 Respiratory Rate 18 01/30/24 08:49 Respiratory Effort Normal, Non-Labored 01/30/24 09:15 Respiratory Depth Normal 01/30/24 09:15 Respiratory Pattern Normal 01/30/24 09:15 Blood Pressure 119/70 01/30/24 08:49 Blood Pressure Position Supine 01/30/24 08:49 Pulse Oximetry 98 01/30/24 08:49 Oxygen Delivery Method Room Air 01/30/24 08:49 Oxygen Flow Rate 0 01/30/24 08:49 Medical Decision Making Evaluation of postoperative patient. I reviewed the medical records from [facility]. IR placed drain into the pelvic abscess. It appears to be draining appropriately, the patient has limited medical understanding and I think does not really know what to expect with the CHRIS drain. He does have home health and wound care that manage this issue at home for him. He was provided his follow-up appointment information. At this time I do not think that there is any additional emergent workup that needs to be done. Medical Records Medical records reviewed: Yes I reviewed the patient's medical records. 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) Housing insecurity (Acute) Food insecurity (Acute) 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 COPD (chronic obstructive pulmonary disease) (Chronic) Hypoalbuminemia due to protein-calorie malnutrition (Acute) Microcytic anemia (Acute) Smoker (Acute) Medical History ETOH abuse Resolved February 2023 Surgical History Status post radiation therapy Family History Other Cancer Social History Smoking/Tobacco Use Status: Current every day Tobacco Type: cigarettes Smoking risk assessment performed?: Yes Alcohol Intake: former Drug use: Rarely Substance use type: marijuana Housing: apartment Do you feel safe at home: Yes Do you feel safe in your relationship?: Yes
== END 2024-01-30 09:43 | disposition home or self-care (01) ==
PROVIDERS: Emergency Provider Emergency Medicine; PCP Physician Assistant
DX: K65.1 Peritoneal abscess (principal); Z85.048 Personal history of other malignant neoplasm of rectum, rectosigmoid junction, and anus; Z92.3 Personal history of irradiation; Z93.3 Colostomy status; F17.210 Nicotine dependence, cigarettes, uncomplicated; Z97.8 Presence of other specified devices
CPT/HCPCS: 99283

== ENCOUNTER 2024-02-09 07:47 | Outpatient (CLI) | payer MEDICAID, SELFPAY ==
[2024-02-09 07:39] LABS: Abs Immature Grans 0.12 10^3/uL (0.0-0.06); Absolute Basophil Count 0.02 10^3/uL (0.0-0.2); Absolute Eosinophil Count 0.03 10^3/uL (0.0-0.7); Absolute Lymphocyte Count 0.32 10^3/uL (1.2-3.4); Absolute Monocyte Count 1.22 10^3/uL (0.1-0.8); Basophils % 0.1; Eosinophils % 0.2; HCT 33.5 % (40.0-50.0); HGB 10.8 g/dL (13.5-17.5); Immature Grans % 0.8; MCH 29.4 pg (27.0-33.0); MCHC 32.2 % (32.0-36.0); MCV 91 fL (80-95); MPV 8.2 fL (8.0-11.0); Monocytes % 7.7; Neutrophils % 89.2; Platelet Count 301 10^3/uL (130-400); RBC 3.67 10^6/uL (4.36-5.78); RDW 14.6 % (11.8-14.1); WBC 15.88 10^3/uL (4.4-10.8)
[2024-02-09 07:41] LABS: Absolute Neutrophil Count 14.16 10^3/uL (1.2-6.7)
[2024-02-09 07:56] LABS: ALT 24 U/L (16-63); AST 30 U/L (15-37); Albumin 2.3 g/dL (3.4-5.0); Alkaline Phosphatase 157 U/L (46-116); Anion Gap 6.5 mmol/L (3-11); BUN 10 mg/dL (7-18); Bilirubin, Total 0.5 mg/dL (0.2-1.0); CO2 30.5 mmol/L (21.0-32.0); CREATININE 0.8 mg/dL (0.70-1.30); Chloride 100 mmol/L (98-107); Estimated GFR 100.06 (mL/min/1.73m2); Glucose 97 mg/dL (74-106); Potassium 3.9 mmol/L (3.5-5.1); Sodium 137 mmol/L (136-145); Total Protein 7.7 g/dL (6.4-8.2)
== END 2024-02-09 07:48 | disposition home or self-care (01) ==
LOC: LBO 07:47
PROVIDERS: PCP Internal Medicine Hematology & Oncology; Visit Provider Internal Medicine Hematology & Oncology
DX: M86.9 Osteomyelitis, unspecified (principal); C21.0 Malignant neoplasm of anus, unspecified
CPT/HCPCS: 36415; 80053; 85025; 86140

== ENCOUNTER 2024-02-13 07:01 | Inpatient (IN) | payer MEDICAID, SELFPAY ==
[2024-02-13] VITALS (110 sets, daily range): BP systolic 65–157; BP diastolic 29–82; PULSE 54–113; RESP 8–28; TEMP 36.3–38; O2SAT 91–100; BMI 16.3
--- NOTE | 2024-02-13 | DI.RAD_ITS ---
Exam(s) XR PORTABLE CHEST AP POST LINE EXAM: XR PORTABLE CHEST AP POST LINE CLINICAL HISTORY: S/P Central line placement. TECHNIQUE: 2D digital imaging was performed. COMPARISON: Prior chest x-ray 12/09/2023 FINDINGS: Single AP portable view. There is a right jugular central line. Its distal tip is in the lower SVC. No pneumothorax. Heart size normal mediastinum is not widened. No new infiltrates. No obvious pneumothorax on this supine portable view. No obvious pleural effusi ons. IMPRESSION: Distal tip of right jugular central line is in the lower SVC. DATA REPOSITORY: RADIATION DOSE DELIVERED:
--- NOTE | 2024-02-13 07:15 | DI.CT_ITS ---
Exam(s) CT LOWER EXTREMITY RT W EXAM: CT LOWER EXTREMITY RT W CLINICAL HISTORY: soft tissue infection. TECHNIQUE: Imaging Protocol: Axial computed tomography images with coronal and sagittal reformatted images were created and reviewed. CONTRAST MATERIAL: Intravenous: Omnipaque 350 Contrast volume:structured data in ml Contrast route:I V - Oral: yes / no COMPARISON: CT CT ABDOMEN PELVIS W from 02/13/2024 FINDINGS: SOFT TISSUES: The pigtail drainage catheter is located just lateral to the right ischial tuberosity in the region o f the quadratus femoris. There is a large abscess in the hamstring musculature involving the semimem branosus/semitendinosis and extending from this region down the length of the posterior thigh to the popliteal fossa level, measuring 32 cm length by 5 cm AP by 6 cm wide. IMPRESSION: Very large abscess extending along the length of the hamstrings muscle group from just below the isch ial tuberosity down to almost the popliteal fossa measuring 32 cm length by 5 cm x 6 cm. RADIATION DOSE DELIVERED: Total DLP DATA REPOSITORY: All CT scans at this facility are submitted to the National Radiology Data Registry (NRDR) Dose Index Registry (DIR) with the [employer] ([employer]). RADIATION OPTIMIZATION: All CT scans at this facility use at least one of these dose optimization te chniques: automated exposure control; mA and/or kV adjustment per patient size (includes targeted exa ms where dose is matched to clinical indication); or iterative reconstruction.
--- NOTE | 2024-02-13 07:15 | DI.CT_ITS ---
Exam(s) CT ABDOMEN PELVIS W EXAM: CT ABDOMEN PELVIS W CLINICAL HISTORY: abdominal pain, acute, nonlocalized. TECHNIQUE: Imaging Protocol: Axial computed tomography images with coronal and sagittal reformatted images were created and reviewed CONTRAST MATERIAL: Intravenous: Omnipaque-350 100cc Oral: None COMPARISON: CT CT PELVIC W from 01/24/2024 FINDINGS: VISUALIZED LUNG BASES: No nodules nor pleural effusions evident. ABDOMEN: There is no ascites. LIVER: There are no focal hepatic lesions evident. No dilated intrahepatic ducts. GALLBLADDER/BILIARY: No obvious gallbladder pathology. CBD is not dilated. PANCREAS: No evidence of pancreatic mass nor dilatation of the pancreatic duct. SPLEEN: Spleen is not enlarged. No obvious intrasplenic lesions. Splenic and portal veins are paten t. ADRENALS: There are no significant adrenal masses. KIDNEYS:9 6 in the lateral cortex of the right kidney measuring 1.7 x 1.6 cm again noted, unchanged. Does not require further workup. No other focal renal findings and no hydronephrosis. No solid abebe al masses. No calculi nor hydronephrosis.. ABDOMINAL AORTA: Abdominal aorta is not enlarged. LYMPH NODES:There is no retroperitoneal nor paraaortic adenopathy. ABDOMINAL WALL: No evidence of significant anterior abdominal wall nor inguinal hernia. Left-sided c olostomy again noted. GI: There is no evidence of bowel obstruction, free air, nor intra-abdominal abscess. PELVIS: GI: No evidence of appendicitis.No evidence of sigmoid diverticulitis. LYMPH NODES: There is no intrapelvic nor inguinal adenopathy. REPRODUCTIVE: Prostate not enlarged. URINARY BLADDER: No calculi nor obvious masses evident OSSEOUS: No fractures and no significant osseous lesions. OTHER: There is now a pigtail drainage catheter in place in the previously described abscess located external to the pelvis lateral to the right ischial tuberosity and medial to hip at this level. This is the quadrator femoris muscle region. The pigtail drainage catheter is medially adjacent to the l ateral aspect of the right ischial tuberosity. Abscess in this immediate region is less than previou s but there is still some remaining abscess below this level. (See lower most image axial images ser ies 5/image 95) IMPRESSION: 1. Right-sided pigtail drainage catheter now in place in the abscess in the region of the right quadr atus femoris muscle between the right ischial tuberosity on the right hip lesser trochanter. Despite presence of the pigtail drainage catheter there is still significant amount of abscess evident in th is region below the level of the pigtail drainage catheter. First read by Liane CASAS [facility] Report called by myself to the on-call surgeon in the ICU 02/13/2024 6 p.m. RADIATION DOSE DELIVERED: Total DLP DATA REPOSITORY: All CT scans at this facility are submitted to the National Radiology Data Registry (NRDR) Dose Index Registry (DIR) with the [employer] (ACR). RADIATION OPTIMIZATION: All CT scans at this facility use at least one of these dose optimization te chniques: automated exposure control; mA and/or kV adjustment per patient size (includes targeted exa ms where dose is matched to clinical indication); or iterative reconstruction.
--- NOTE | 2024-02-13 07:25 | W.ED.GENAD ---
Discharge Plan Disposition Patient Disposition: Admit to [facility] Discharge Details Clinical Impression: Abscess, Septic shock, Sepsis, Hypokalemia, Hypomagnesemia Primary Care Provider: Guru Everett ED Provider: Abdirahman Tirado Home Meds and New Rx's Prescriptions: No Action oxycodone 15 mg tablet 15 - 30 mg PO Q4H MDD 8 pills PRN (Reason: pain) Qty: 240 0RF Xtampza ER 18 mg cap,sprinkl,ER12hr(DONT CRUSH) 18 mg PO BID MDD 2 pills Qty: 60 0RF Rx Instructions: must administer with a meal/food oxycodone 15 mg tablet 15 - 30 mg PO Q4H MDD 8 pills PRN (Reason: pain) Qty: 240 0RF silver sulfadiazine 1 % cream 1 applic topical QID Rx Instructions: apply a 1.5 mm thickness lidocaine HCl 4 % cream 1 applic topical Q4H PRN PRN levofloxacin 750 mg tablet 750 mg PO DAILY Patient Comments: TAKE ONE TABLET BY MOUTH EVERY DAY- picked up but never started metronidazole 500 mg tablet 500 mg PO TID Patient Comments: TAKE ONE TABLET BY MOUTH THREE TIMES A DAY- picked up but never started HPI General Date/Time Provider Initiated Documentation: 02/13/24 07:07. 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 Developed chronic wound and around the anal complex from the radiation. 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 Ended up being admitted for IV antibiotics and had an outpatient CHRIS drain placed by [facility] and subsequently had been doing well. Apparently over the last couple days has been feeling little bit worse. Still has drainage from the CHRIS drain of 25 mL daily of purulent material according to the patient. He says he finished an antibiotic just the other day and that his oncologist Dr. Everett placed him on levofloxacin and Flagyl which he picked up yesterday but has not started taking. He came in now due to the worsening pain in his right pelvis going down his right leg. He has fevers and chills but denies any other symptoms presently. Related Data Home Medications Medication Instructions Recorded Confirmed lidocaine HCl 4 % topical cream 1 applic topical Q4H PRN PRN 12/03/23 02/13/24 silver sulfadiazine 1 % topical 1 applic topical QID 12/03/23 02/13/24 cream oxycodone 15 mg tablet 15 - 30 mg (1 - 2 x 15 mg) PO Q4H 12/14/23 02/13/24 PRN pain #240 tabs oxycodone 15 mg tablet 15 - 30 mg (1 - 2 x 15 mg) PO Q4H 01/11/24 02/13/24 PRN pain #240 tabs oxycodone myristate 18 mg capsule 18 mg PO BID #60 caps 01/11/24 02/13/24 sprinkle extended release 12hr(DON'T CRUSH) (Xtampza ER) levofloxacin 750 mg tablet 750 mg PO DAILY 02/13/24 02/13/24 metronidazole 500 mg tablet 500 mg PO TID 02/13/24 02/13/24 Previous Rx's Medication Instructions Recorded oxycodone 15 mg tablet 15 - 30 mg (1 - 2 x 15 mg) PO Q4H 12/14/23 PRN pain #240 tabs oxycodone 15 mg tablet 15 - 30 mg (1 - 2 x 15 mg) PO Q4H 01/11/24 PRN pain #240 tabs oxycodone myristate 18 mg capsule 18 mg PO BID #60 caps 01/11/24 sprinkle extended release 12hr(DON'T CRUSH) (Xtampza ER) Allergies Allergy/AdvReac Type Severity Reaction Status Date / Time No Known Allergies Allergy Unverified 02/13/24 10:32 General Stated Complaint: GenMedical WENDY: 3 Review of Systems Constitutional Constitutional: Reports chills, Reports fever(s) and Denies headache(s) Eyes Eyes: Denies change in vision ENT Ears, Nose, Mouth, and Throat: Denies headache(s) and Denies odynophagia Cardiovascular Cardiovascular: Denies chest pain and Denies dyspnea Respiratory Respiratory: Denies dyspnea Gastrointestinal Gastrointestinal: Denies abdominal pain, Denies diarrhea, Denies nausea, Denies odynophagia and Denies vomiting Genitourinary Genitourinary: Denies dysuria Musculoskeletal Comments: Right pelvis and thigh pain Integumentary/Breasts Skin/Breast: Denies changing lesions Neurologic Neurologic: Denies behavioral changes and Denies headache(s) Psychiatric Psychiatric: Denies behavioral changes Endocrine Endocrine: Denies heat intolerance Hematologic/Lymphatic Hematologic/Lymphatic: Denies lymphadenopathy Exam Const General: cooperative Nutritional Appearance: average body habitus Orientation: alert, awake and oriented x3 HENMT Head: normal to inspection Ears: external ears normal Mouth: moist mucous membranes Eyes Pupils: PERRL EOM: EOM intact bilaterally and No nystagmus Neck Neck: full ROM and no tracheal deviation Chest Chest: normal inspection of the chest Resp Auscultation: clear to auscultation bilaterally Cardio Rate: regular rate Rhythm: regular rhythm GI Inspection: normal to inspection Palpation: soft, no guarding, not rigid and nontender Other: Abdomen soft nontender nondistended Back/Spine/Pelvis Back: No no CVA tenderness Thoracic/Lumbar Spine: thoracic and lumbar spine normal to inspection Other: No tenderness in the back. He has tenderness through the right glute and extending into the right thigh. There is no redness or swelling or warmth obviously on my examination. Circulation, sensation, and motor intact in the bilateral lower extremities and compartments of the lower extremities are soft. Still able to fully range all joints of the bilateral lower extremities. Skin General skin exam: no rashes or lesions noted Neuro General: patient alert, patient awake and patient oriented x3 Cranial Nerves: CN's II-XI intact bilaterally, PERRL and no nystagmus Cognition: normal cognition Motor: muscle tone normal throughout and strength 5/5 throughout Sensory Exam: no sensory deficits noted Extrem General: normal to inspection Course Consultations Consultation #1: Surgery Dr. Howell for abscess of the right thigh. He will take the patient to the OR for incision and drainage and possible drain placement. Vital Signs Vital signs: Vital Signs Temperature 38.0 C H 02/13/24 07:11 Pulse 113 H 02/13/24 07:11 Respiratory Rate 20 02/13/24 07:11 Blood Pressure 87/51 L 02/13/24 07:11 Pulse Oximetry 97 02/13/24 07:11 Temperature 38.0 C H 02/13/24 07:11 Temperature Source Tympanic 02/13/24 07:11 Pulse 113 H 02/13/24 07:11 Respiratory Rate 20 02/13/24 07:11 Blood Pressure 87/51 L 02/13/24 07:11 Pulse Oximetry 97 02/13/24 07:11 Oxygen Delivery Method Room Air 02/13/24 07:11 Oxygen Flow Rate 0 02/13/24 07:11 Pain Level 8 02/13/24 07:11 Lab/Test Results Lab/Test Results: 02/13/24 07:22 Blood Blood Culture - Pending 02/13/24 07:22 Blood Blood Culture - Pending Medical Decision Making 63-year-old male history of anal squamous cell carcinoma status post chemo and radiation and subsequently had developed a chronic wound and now with a pelvic abscess and ischial osteomyelitis is now presenting with worsening right pelvis and leg pain. I am concerned that this could represent worsening abscess or infection. It looks like his CHRIS drain is still draining on my examination and based off his history from home with 25 mL of output daily. There is no redness or swelling at the insertion site of the CHRIS drain. Still most likely to represent soft tissue infection or abscess worsening and certainly septations could have formed. Will get CT abdomen pelvis to further evaluate. Will include the right lower extremity given the pain tracking into his right thigh. Will not delay antibiotics and give broad-spectrum antibiotics with IV fluids after obtaining blood cultures. Pain is not centered around the hip joint so I do not think that this is a joint space infection presently. Will get broad labs to look for electrolyte or metabolic cause of the patient's symptoms. Will await initial testing and response to treatment with analgesia and reevaluate. [id number] Labs with leukocytosis and lactic acidosis. Further supports possible sepsis. Already given broad-spectrum antibiotics. Despite multiple liters of IV fluids still hypotensive and I started the patient on Levophed with good response. CT abdomen pelvis and right lower extremity is showing right posterior thigh abscess. Spoke with Dr. Francisco Jose with surgery who will take the patient to the operating room. He will admit to ICU after OR. Also found to have hypokalemia and hypomagnesemia on labs and will replete these. Imaging Data Radiologic Study: Imaging: CT Scan (abd and pelvis and right lower extremity) Radiologist's impression: IMPRESSION: Large abscess in the posterior thigh. The pigtail drainage catheter is positioned above the abscess. Lab Data Lab results reviewed: Yes I reviewed the patient's lab results. Labs: Leukocytosis and lactic acidosis. Hypokalemia and hypomagnesemia ECG Data Interpretation: Normal sinus rhythm with no ischemic changes. Normal ND intervals. Otherwise unremarkable EKG. Normal axis. Quality:SDOH Health Related Social Needs: No Data to Display Critical Care Time Critical Care Time Critical Care Time: Yes Total Critical Care Time: 45 Attestation: Abdirahman Hawkins MD, performed 45 minutes of critical care time exclusive of procedures and teaching time. Time spent treating septic shock. 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) Pelvic abscess in male (Acute) High risk medication use (Acute) Abnormal weight loss (Acute) Skin ulcer of perineum with fat layer exposed (Acute) History of alcohol abuse (Acute) Advanced care planning/counseling discussion (Acute) Palliative care encounter (Acute) Cancer related pain (Acute) Controlled substance agreement and informed consent obtained 12/14/2023 Transportation insecurity due to lack of spotter driver's license (Acute) Housing insecurity (Acute) Food insecurity (Acute) 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 COPD (chronic obstructive pulmonary disease) (Chronic) Hypoalbuminemia due to protein-calorie malnutrition (Acute) Microcytic anemia (Acute) Smoker (Acute) Medical History ETOH abuse Resolved February 2023 Surgical History Status post radiation therapy Family History Other Cancer Social History Smoking/Tobacco Use Status: Current every day Tobacco Type: cigarettes Smoking risk assessment performed?: Yes Alcohol Intake: former Drug use: Rarely Substance use type: marijuana Housing: apartment Do you feel safe at home: Yes Do you feel safe in your relationship?: Yes
[2024-02-13] MEDS: MORPHine 4 MG/ML SYR IVP (07:45)
[2024-02-13] MEDS: Ondansetron 4 MG/2 ML VIAL IVP (07:49)
[2024-02-13] MEDS: Famotidine 20 MG TAB PO (07:51)
[2024-02-13] MEDS: Acetaminophen 500 MG TAB 1000 MG PO (07:51)
[2024-02-13] MEDS: Lactated Ringers 1,000 ML 1000 ML IV ×2 (08:00→09:57)
[2024-02-13] MEDS: Normal Saline Flush 10 ML SYR IVP (08:08)
[2024-02-13] MEDS: PIPERACILLIN/TAZO 4.5 GM in Normal Saline 100 ML IVPB (08:37)
[2024-02-13] MEDS: Omnipaque 350 MG/ML 50 ML BTL IJ ×2 (08:47→08:49)
[2024-02-13] MEDS: Normal Saline - Diluent 50 ML VIAL IJ (08:50)
[2024-02-13] MEDS: VANCOMYCIN/WATER (PEG) 1.75 GM/350 ML BAG IVPB (09:00)
[2024-02-13 09:28] LABS: Lactate 2.6 mmol/L (0.6-1.4)
[2024-02-13 09:33] LABS: Abs Immature Grans 0.13 10^3/uL (0.0-0.06); Absolute Basophil Count 0.03 10^3/uL (0.0-0.2); Absolute Monocyte Count 0.52 10^3/uL (0.1-0.8); Absolute Neutrophil Count 13.98 10^3/uL (1.2-6.7); Basophils % 0.2; HCT 26.8 % (40.0-50.0); HGB 8.9 g/dL (13.5-17.5); Immature Grans % 0.9; Lymphocytes % 1.1; MCH 29.5 pg (27.0-33.0); MCHC 33.2 % (32.0-36.0); MCV 89 fL (80-95); MPV 8.5 fL (8.0-11.0); Monocytes % 3.5; Neutrophils % 94.3; Platelet Count 193 10^3/uL (130-400); RBC 3.02 10^6/uL (4.36-5.78); RDW 14.6 % (11.8-14.1); RDW-SD 46.9 fL; WBC 14.83 10^3/uL (4.4-10.8)
[2024-02-13] MEDS: Norepinephrine in D5W 8 MG/250 ML BAG 9.4 MG IV (09:35)
[2024-02-13 09:36] LABS: ESR 70 mm/hr (0-20)
--- NOTE | 2024-02-13 09:40 | DI.VRAD_ITS ---
PROCEDURE INFORMATION: Exam: CT Abdomen And Pelvis With Contrast Exam date and time: 02/13/2024 8:51 AM Age: 63 years old Clinical indication: Other: Abdominal pain, acute, nonlocalized TECHNIQUE: Imaging protocol: Computed tomography of the abdomen and pelvis with contrast. Radiation optimization: All CT scans at this facility use at least one of these dose optimization techniques: automated exposure control; mA and/or kV adjustment per patient size (includes targeted exams where dose is matched to clinical indication); or iterative reconstruction. Contrast material: OMNI 350; Contrast volume: 100 ml; Contrast route: INTRAVENOUS (IV); COMPARISON: CT PELVIC W 24/01/2024 18:16 FINDINGS: Tubes, catheters and devices: Pigtail drainage catheter passes posterior to the right hip coiled between the ischium and femur. Abscess collection demonstrated on previous exam no longer evident. Lungs: Visualized lung bases are clear. Liver: Normal. No mass or intrahepatic biliary ductal dilatation. Gallbladder and bile ducts: Gallbladder is distended but with no stones or wall thickening. Pancreas: Normal. No mass or ductal dilation. Spleen: Normal. No splenomegaly. Adrenal glands: Normal. No mass. Kidneys and ureters: Normal. No hydronephrosis, calculus, cyst or mass. Stomach and bowel: No significant bowel dilatation. Left lower quadrant colostomy. Appendix: No evidence of appendicitis. Intraperitoneal space: Unremarkable. No free air. No significant fluid collection. Vasculature: Unremarkable. No abdominal aortic aneurysm or significant atherosclerosis. Lymph nodes: No enlarged retroperitoneal or mesenteric lymph nodes. Urinary bladder: No mass or wall thickening. Reproductive: Unremarkable as visualized. Bones/joints: Advanced lumbar spondylosis. Soft tissues: Unremarkable. IMPRESSION: Successful drainage of abscess in the upper medial right thigh. Pigtail catheter remains in place with no remaining fluid or air. Dictated and Authenticated by: eZus Gambino MD. Ordering:TINA Gary MD
[2024-02-13 09:41] LABS: Absolute Lymphocyte Count 0.16 10^3/uL (1.2-3.4)
[2024-02-13 09:45] LABS: ALT 19 U/L (16-63); AST 33 U/L (15-37); Albumin 1.8 g/dL (3.4-5.0); Alkaline Phosphatase 163 U/L (46-116); Anion Gap 7.5 mmol/L (3-11); BUN 11 mg/dL (7-18); Bilirubin, Total 1.1 mg/dL (0.2-1.0); C-Reactive Protein 15.67 mg/dL (<or=0.5); CO2 28.5 mmol/L (21.0-32.0); Chloride 95 mmol/L (98-107); Creatine Kinase 34 U/L (39-308); Glucose 100 mg/dL (74-106); Magnesium 1.6 mg/dL (1.8-2.4); Potassium 3.2 mmol/L (3.5-5.1); Sodium 131 mmol/L (136-145); Total Protein 5.9 g/dL (6.4-8.2)
--- NOTE | 2024-02-13 09:45 | RT.EKG_ITS ---
APPROVED REPORT Exam: Resting ECG Reason for Exam: Chest Pain Patient Location: E HR:61 bpm ECG Measurements Heart Rate 61 AXIS MA 124 P 77 QRSd 98 QRS 79 QT 437 T 70 QTc 439 Conclusion Sinus rhythm...normal P axis, V-rate 60- [address] depression, diffuse leads...ST <-0.03mV, ant/lat/inf
--- NOTE | 2024-02-13 09:46 | DI.VRAD_ITS ---
PROCEDURE INFORMATION: Exam: CT Right Lower Extremity With Contrast; Thigh Exam date and time: 02/13/2024 8:51 AM Age: 63 years old Clinical indication: Other: Soft tissue infection TECHNIQUE: Imaging protocol: CT of the right lower extremity with intravenous contrast was performed. Exam focused on the thigh. Radiation optimization: All CT scans at this facility use at least one of these dose optimization techniques: automated exposure control; mA and/or kV adjustment per patient size (includes targeted exams where dose is matched to clinical indication); or iterative reconstruction. Contrast material: OMNI 350; Contrast volume: 100 ml; Contrast route: INTRAVENOUS (IV); COMPARISON: CT ABDOMEN PELVIS W 05/11/2024 08:51 FINDINGS: Tubes, catheters and devices: Pigtail drainage catheter in place position between the right ischium and femoral neck. Inferior to the drainage catheter is a large abscess collection in the posterior thigh containing air and fluid. This extends the length of the thigh measuring about 32 x 5.5 x 6.6 cm. The abscess appears intramuscular within the semitendinosis and semimembranous muscles primarily. Bones/joints: Normal. No acute fracture or dislocation. Soft tissues: See Tubes, catheters and devices finding. IMPRESSION: Large abscess in the posterior thigh. The pigtail drainage catheter is positioned above the abscess. Dictated and Authenticated by: Zeus Gambino MD. Ordering:TINA Gary MD
--- NOTE | 2024-02-13 09:57 | NUR.NOTE ---
Nursing Note: pt began c/o sharp mid chest pain and feeling of hot flash; provider made aware, EKG obtained,and norepi rate decreased from 20 to 10. Pt now without c/o chest pain.
[2024-02-13] MEDS: MAGNESIUM SULFATE 2 GM/50 ML BAG IVPB (10:16)
[2024-02-13] MEDS: POTASSIUM CHLORIDE 20 MEQ/100 ML BAG 50 MEQ IVINF (10:16)
--- NOTE | 2024-02-13 10:20 | NUR.NOTE ---
BP 74/36 Norepi increased from 10 to 15mcgNursing Note:
--- NOTE | 2024-02-13 10:37 | NUR.NOTE ---
pt emptied drain. 20cc of bellamy fluid
[2024-02-13] MEDS: Nicotine 21 MG/24 HR PATCH TD (11:09)
--- NOTE | 2024-02-13 11:38 | SCONE_ITS ---
Date of service: 02/13/24 Time of Service: 11:38 Assessment and Plan Assessment and plan (1) Soft tissue infection: Status: Acute Assessment and plan: Patient presents with right posterior gluteal soft tissue infection with extension into the right posterior thigh The abscess is extremely large, greater than 30 cm x 5.5 x 6 cm Patient has evidence of endorgan dysfunction, hypotension, requiring initiation of vasoactive agents to maintain adequate systolic and diastolic blood pressure There is a IR drain in place which is no longer functioning as evident by development of a very large soft tissue infection that is not successfully drained. Concern for polymicrobial infection, most recent cultures demonstrated Bacteroides, and Peptostreptococcus bacteria Patient meets sepsis criteria, with white blood cell count greater than 12,000, evidence of endorgan dysfunction and hypotension, as well as a documented source for infectious process Plan: Admit to surgery We will proceed with emergent surgical incision, debridement, drain placement today Transfer to the intensive care unit after surgery Treatment with triple antibiotic therapy for presumed polymicrobial infection with vancomycin, gentamicin, and metronidazole Wound care will be required 2 times daily: Moist Dakin's soaked gauze sponge packed into the wound 2 times daily Blood cultures Wound cultures will be obtained in the OR 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: Patient currently under the care of of palliative care here in [facility] Will resume chronic narcotic pain management for his cancer associated pain Acute postoperative pain: Patient may require multimodal therapy in addition to his chronic narcotic prescriptions to help with acute postsurgical pain Informed consent discussion completed today Informed consent document will be signed before surgery (2) Sepsis associated hypotension: Status: Acute Assessment and plan: Continue vasopressor support at this time Continue aggressive fluid resuscitation We have initiated treatment with broad-spectrum antibiotic therapy for the infectious process Patient will transfer to the intensive care unit after surgery for treatment and management of his sepsis History of Present Illness Narrative: This is a 63-year-old male with recent diagnosis of anal squamous cell carcinoma, seen at [facility] for treatment and management of his 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 I have been provided with some of his clinical documentation from [facility] which is a part of [facility] system. 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 He underwent biopsy, fecal diversion, and staging. Initial imaging showed involvement of the liver muscles, and tumor extended in the right. Gluteal region, the scrotum, and the perianal skin. He was treated with a modified timbo protocol with overall good response however the response of the tumor resulted in a large perineal defect with chronic drainage. He has had follow-up MRI and PET scan that was reassuring, after tumor board review, ongoing surveillance was recommended. At his office visit with Dr. Chaya Gambino 02/08/2024, there was review of most recent MRI, concerning for an increasing size of a mass, which Dr. Gambino believes is highly concerning for recurrent tumor. As of 02/08/2024, the extensive nature of disease precludes surgical resection with adequate margins and discussion at tumor board conference for palliative APR even in the setting of extremely high risk positive margins. Given the extensive disease process, this would be unlikely to resolve his pain, extend his life, would require extensive soft tissue reconstruction with plastic surgery and would result in a long period of time in the hospital and surgical recovery. It appears a discussion about whether or not biopsy to confirm the recurrence was warranted. I am unable to tell if a biopsy was carried out since 02/08/2024, and the patient is uncertain. It is possible this increasing mass on radiographic imaging may have been due to infection. The patient has lost 25 pounds since August, he attributes his weight loss not been able to eat or drink. He is using a cane to walk, he is thin and frail. At that follow-up visit, the patient reported that he continues to smoke, in fact he pulled out a cigarette in the room, and noted that had been 2 hours since his last cigarette. Dr. Gambino reviewed the tumor board discussion with him on 02/08/2024. They discussed logistics of surgical resection if it were considered including cessation of smoking, prolonged hospital stay, and soft tissue flap. Given his weight loss, ongoing smoking, and minimal expectation of negative margins or symptomatic improvement in the patient's strong desire not to spend time in a hospital setting, the patient and Dr. Gambino agreed that surgery is not a good option. She did discuss with him about possible repeat endoscopic ultrasound to perform biopsy, but he was not sure he would want to pursue it and will discuss it with Dr. Everett later on. He also was uncertain if he would consider additional systemic treatment. Patient is followed by oncology and radiation oncology with plan for surveillance of colon and rectal surgery team. Due to history of chemotherapy and radiation therapy, was recommended the patient should avoid surgical management in the radiation field, as a precautionary measure to avoid nonhealing of wounds created within the radiation field. This recommendation was placed back in May 20, 2023. It has been more than 6 months at this time. ------- On 08/24/2023 there is documentation from a colorectal surgery note-which remarks about difficulty assessing the extent of persistent anal squamous cell carcinoma and associated disease in the inpatient office exam. In August it was recommended to wait an additional 3 months before proceeding with tentative endoscopic exam under anesthesia. It appears that a discussion with colorectal surgery was held between the patient and the surgeon regarding possible future low anterior perineal resection however this would need to be reassessed. It was discussed that he would have a large soft tissue defect where the tumor was initially diagnosed, and potentially likely ongoing fluid drainage from the surgical site. It also appears that he is considered to be at high risk for postprocedural complications due to his overall health status. Additionally he has quite malnourished, and cachectic appearing. He did have follow-up on 09/24/2023, and same discussion about if no metastatic disease, then consideration for anterior perineal resection was still a viable option. Would require plastic surgery comanagement for flap reconstruction if he turns out to be a candidate for resection. 01/24/2024 he presented to the emergency department at [facility] with increased pain and found to have an air-fluid collection containing presumed infected material. Cultures were remarkable for Bacteroides and parvimonus Micra (Peptostreptococcus micros). A specimen was sent to pathology and there was no evidence of metastatic tissue in the specimen that was evaluated. Patient presents to the emergency department today on 02/13/2024 reporting acute development of pain within the last 12 hours. The interventional drain remains in place, since 01/28/2024, however the patient reports a small amount of output over the preceding days, over the last 24 hours he only emptied 25 cc of purulent appearing discharge. In the emergency department an additional 25 cc of thick turbid purulent appearing discharge was emptied from the drainage bulb. He underwent appropriate workup including CT abdomen pelvis, and CT of the right lower extremity demonstrating a very large abscess in the soft tissue localizing from the right ischial fossa, and tracking into the right posterior thigh and the soft tissue. This is deep to the fascia. The abscess is reported by radiology to measure 32 x 5.5 x 6.6 cm in dimensions. Clinically the patient is awake, alert, oriented, somewhat disgruntled, slightly uncooperative, but he acknowledges his need for emergent medical assistance. He requested medications for pain, he states that he thinks he would need surgery for management of the pain. He is exactly correct. I discussed with him my recommendation to proceed emergently to surgery today, or incision and debridement with loop drain placement to prevent reaccumulation, and redevelopment of this large abscess collection. The patient is septic, he is hypotensive, tachycardic, displaying evidence of end ischemic organ dysfunction. He is currently undergoing aggressive fluid resuscitation with multiple liters of crystalloid solution, and he is maintained on a phenylephrine drip to maintain adequate systolic and diastolic blood pressures. ----- We will plan for surgery for evacuation, and possible debridement of the soft tissue infection, and then admission to the intensive care unit following surgery. This patient is critically ill, he is at risk for rapid and acute deterioration if there is delay of acute definitive surgical management. I discussed with him today the risks of bleeding, recurrent infection, prolonged infection, delayed healing of the wound due to his malnutrition, delayed healing of wounds due to his radiation tissue effect, we discussed potential nonhealing. I have advised that this is a very large abscess collection, and will require appropriate wound care following surgery which may be uncomfortable, however the benefit of wound care, outweighs the risks of discomfort. We discussed other risks including need for blood transfusion, risk of bleeding, risk of requiring return to the OR for control of bleeding, we discussed risks of needing additional surgical management, if the tissue is ischemic, or necrotic, or nonviable, it is possible that he may require extensive debridement of the tissue fascia, and opening of the posterior thigh. There is a risk of chronic pain, discomfort, disability, chronic nerve injury, and potentially disabling effects from extensive surgical debridement if required. It appears that the infection not only involves the soft tissue including the subcutaneous tissue, and the fascia, but it appears to involve the subfascial tissue, and is within the muscle as well. Great care will be required during surgery and during debridement if indicated to try and reduce these inherent risks of an emergency operation. The patient indicates to me that he understands today, and he is in agreement to proceed, he understands that risks of nonsurgical management such as interventional drain placement have already failed, and treatment with oral antibiotics in the outpatient setting has been ineffective. I discussed with him that he is unlikely to improve, if we do not proceed with surgery, I also discussed with him that there is additional risk of the infectious process spreading within the muscle body, to involve more of the right lower extremity, and could potentially spread to the joint and the knee, or could affect the joint and the hip. These complications or outcomes may result even with appropriate surgical management, and he indicates to me that he understands. Consults Consult date: 02/13/24 Review of Systems Narrative: Review of systems is remarkable for pain, fullness in the right thigh, minimal output in the CHRIS drain, continues to have purulent discharge, he denies any subjective fevers or chills, he reports feeling well until yesterday afternoon. Over the last 12 hours he began to notice fullness, pain, discomfort, tenderness, which is what caused him to present for evaluation again today. He denies any chest pain, no shortness of breath, no nausea, no vomiting. 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) Pelvic abscess in male (Acute) High risk medication use (Acute) Abnormal weight loss (Acute) Skin ulcer of perineum with fat layer exposed (Acute) History of alcohol abuse (Acute) Advanced care planning/counseling discussion (Acute) Palliative care encounter (Acute) Cancer related pain (Acute) Controlled substance agreement and informed consent obtained 12/14/2023 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 (Acute) Housing insecurity (Acute) Food insecurity (Acute) 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 COPD (chronic obstructive pulmonary disease) (Chronic) Hypoalbuminemia due to protein-calorie malnutrition (Acute) Microcytic anemia (Acute) Smoker (Acute) Medical History ETOH abuse Resolved February 2023 Surgical History Status post radiation therapy Family History Other Cancer Social History Smoking/Tobacco Use Status: Current every day Tobacco Type: cigarettes Smoking risk assessment performed?: Yes Alcohol Intake: former Drug use: Rarely Substance use type: marijuana Housing: apartment Do you feel safe at home: Yes Do you feel safe in your relationship?: Yes Exam Narrative Exam Narrative: gen: moderate distress, uncomfortable appearing, awake, alert, oriented Neuro: No focal neurologic deficits Psych: He is a moderately poor historian, responds appropriately, makes good eye contact, he does have good understanding, he is able to provide appropriate consent HEENT: Atraumatic, normocephalic Neck: Trachea midline Heart: RRR, no m/r/g Lungs: ctab Chest: Bilateral excursion with respiration, does not localize chest pain Abdomen: Thin abdomen, nontender to palpation, fecal diversion with ostomy, well-healed surgical incisions MSK: The right posterior thigh is full, tense, there are no skin changes, no appreciation of erythema, no induration, he is tender to palpation in the right posterior thigh, there is an interventional drain placement, I did flush the drain, the drain return to some turbid purulent discharge tolerated fluid, but did not improve his discomfort. There is localized pain from the right gluteus, all the way down behind the knee and the distal femur. Perineum: Unable to evaluate or examine the perineum due to pain, discomfort, and movement, I will get a better examination in the operating room Integument: No lacerations, no abrasions, normal appearing skin Results Last Vital Signs Temp 98.7 F 02/13/24 11:02 Pulse 79 02/13/24 11:35 Resp 18 02/13/24 11:35 BP 114/66 02/13/24 11:35 Pulse Ox 96 02/13/24 11:35 Labs 02/13/24 09:20 02/13/24 09:20 Labs: Laboratory Results - last 24 hr 02/13/24 02/13/24 09:20 09:20 WBC 14.83 H RBC 3.02 L Hgb 8.9 L Hct 26.8 L MCV 89 MCH 29.5 MCHC 33.2 RDW 14.6 H Plt Count 193 MPV 8.5 Immature Gran % 0.9 Neutrophils % 94.3 Lymphocytes % 1.1 Monocytes % 3.5 Eosinophils % 0.0 Basophils % 0.2 Nucleated RBC % 0.0 Absolute Neutrophils 13.98 H Absolute Lymphocytes 0.16 L Absolute Monocytes 0.52 Absolute Eosinophils 0.00 Absolute Basophils 0.03 ESR 70 H VBG Lactate 2.6 H* Sodium 131 L Potassium 3.2 L Chloride 95 L Carbon Dioxide 28.5 Anion Gap 7.5 BUN 11 Creatinine 1.0 Est GFR (CKD-EPI 2020) 85.10 Glucose 100 Calcium 8.0 L Magnesium 1.6 L Total Bilirubin 1.1 H AST 33 ALT 19 Alkaline Phosphatase 163 H Creatine Kinase 34 L Cancelled C-Reactive Protein 15.67 H Total Protein 5.9 L Albumin 1.8 L Imaging Imaging Studies: I have personally reviewed his diagnostic images, CT abdomen pelvis, and right lower extremity CT-there is a extremely large abscess involving the subcutaneous tissue, and deep to the fascia.
--- NOTE | 2024-02-13 11:43 | ANES.PREOP_ITS ---
General Info Date of Service Date Performed: 02/13/24 Height: 6 ft 4 in Weight: 60.8 kg Body Mass Index (BMI): 16.3 Surgical Procedure: Operation Date: 02/13/24 12:30 Proposed Procedure Side Surgeon p Debridement Foot/Leg Right Gatito Jose MD Actual Procedure Side Surgeon p Irrigation + Debridement of Posterior Leg Abscess with Drain Placement Right Gatito Jose MD Meds Allergies and Home Medications Allergies Allergy/AdvReac Type Severity Reaction Status Date / Time No Known Allergies Allergy Unverified 02/13/24 10:32 Home Medication Medication Instructions Recorded lidocaine HCl 4 % topical cream 1 applic topical Q4H PRN PRN 12/03/23 silver sulfadiazine 1 % topical 1 applic topical QID 12/03/23 cream oxycodone 15 mg tablet 15 - 30 mg (1 - 2 x 15 mg) PO Q4H 12/14/23 PRN pain #240 tabs oxycodone 15 mg tablet 15 - 30 mg (1 - 2 x 15 mg) PO Q4H 01/11/24 PRN pain #240 tabs oxycodone myristate 18 mg capsule 18 mg PO BID #60 caps 01/11/24 sprinkle extended release 12hr(DON'T CRUSH) (Xtampza ER) levofloxacin 750 mg tablet 750 mg PO DAILY 02/13/24 metronidazole 500 mg tablet 500 mg PO TID 02/13/24 Current Visit Medications: Current Medications Generic Name Dose Route Start Last Admin Trade Name Freq PRN Reason Stop Dose Admin Gentamicin Sulfate 900 mg 02/13/24 11:30 Gentamicin 80 Mg/2 Ml Vial IV 02/13/24 23:59 DIRECTED ОЛЬГА Norepinephrine Bitartrate 8 mg in 250 mls @ 0 mls/hr 02/13/24 09:15 02/13/24 10:59 IV 18.8 mls/hr INFUSION ОЛЬГА 18.8 mls/hr Titration Protocol As Directed Magnesium Sulfate 2 gm in 50 mls @ 25 mls/hr 02/13/24 09:53 02/13/24 10:16 IVPB 02/13/24 11:52 25 mls/hr NOW ONE Administration Potassium Chloride 20 meq in 100 mls @ 50 mls/hr 02/13/24 09:53 02/13/24 10:16 IVINF 02/13/24 11:52 50 mls/hr NOW ONE Administration Metronidazole 500 mg in 100 mls @ 100 mls/hr 02/13/24 11:34 Flagyl IVPB 02/13/24 12:33 STAT STA IV Miscellaneous Supplies 1 each 02/13/24 07:30 Iv Access-Emergency Dept IV DIRECTED ОЛЬГА Iohexol 50 ml 02/13/24 09:00 02/13/24 08:49 Omnipaque 350 Mg/Ml 50 Ml Btl IJ 03/14/24 23:59 50 ml DIRECTED ОЛЬГА Administration Nicotine 21 mg 02/13/24 08:30 02/13/24 11:09 Nicotine 21 Mg/24 Hr Patch TD 21 mg DAILY ОЛЬГА Administration Sodium Chloride 0 ml 02/13/24 08:30 02/13/24 08:08 Normal Saline Flush 10 Ml Syr IVP 10 ml BID ОЛЬГА Administration Sodium Chloride 0 ml 02/13/24 07:22 Normal Saline 10 Ml Vial IJ DIRECTED PRN Sodium Chloride 0 ml 02/13/24 07:22 Normal Saline Flush 10 Ml Syr IVP PRN PRN Sodium Chloride 50 ml 02/13/24 09:00 02/13/24 08:50 Normal Saline - Diluent 50 Ml Vial IJ 50 ml .FOR DI USE ОЛЬГА Administration PFSH Active Problems Active Problems: Problem Status Onset Code Hypomagnesemia E83.42 Hypokalemia E87.6 Sepsis A41.9 Septic shock A41.9, R65.21 Abscess L02.91 Pelvic abscess in male K65.[address] Z93.3 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 Pelvic abscess in male K65.1 High risk medication use Z79.899 Abnormal weight loss R63.4 Skin ulcer of perineum with fat layer exposed L98.492 History of alcohol abuse F10.11 Advanced care planning/counseling discussion Z71.89 Palliative care encounter Z51.5 Cancer related pain G89.3 Transportation insecurity due to lack of route cdl driver's license Z59.82 Housing insecurity Z59.819 Food insecurity Z59.41 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 COPD (chronic obstructive pulmonary disease) J44.9 Hypoalbuminemia due to protein-calorie malnutrition E88.09, E46 Microcytic anemia D50.9 Smoker F17.200 Medical History Medical History ETOH abuse Resolved February 2023 Surgical History Surgical History Status post radiation therapy Tobacco Smoking/Tobacco Use Status: Current every day Tobacco Type: cigarettes Smoking cigarettes per day: 20 Alcohol Alcohol Intake: former Substance Use Substance use: Rarely Substance use type: marijuana Vital Signs and Lab Results Vital Signs Most Recent Vital Signs in EMR: Most Recent Vital Signs Temp Pulse Resp BP Pulse Ox 37.1 C 79 18 114/66 96 02/13/24 11:02 02/13/24 11:35 02/13/24 11:35 02/13/24 11:35 02/13/24 11:35 Lab Results 02/13/24 09:20 02/13/24 09:20 Blood Type / Crossmatch: 2 No Data to Display Complete Blood Count: 2 White Blood Count 14.83 10^3/uL (4.4-10.8) H 02/13/24 09:20 Red Blood Count 3.02 10^6/uL (4.36-5.78) L 02/13/24 09:20 Hemoglobin 8.9 g/dL (13.5-17.5) L 02/13/24 09:20 Hematocrit 26.8 % (40.0-50.0) L 02/13/24 09:20 Platelet Count 193 10^3/uL (130-400) 02/13/24 09:20 Venous Blood Lactate 2.6 mmol/L (0.6-1.4) H* 02/13/24 09:20 Complete Metabolic Panel: 2 Sodium 131 mmol/L (136-145) L 02/13/24 09:20 Potassium 3.2 mmol/L (3.5-5.1) L 02/13/24 09:20 Chloride 95 mmol/L (98-107) L 02/13/24 09:20 Carbon Dioxide 28.5 mmol/L (21.0-32.0) 02/13/24 09:20 BUN 11 mg/dL (7-18) 02/13/24 09:20 Creatinine 1.0 mg/dL (0.70-1.30) 02/13/24 09:20 Est GFR (CKD-EPI 2020) 85.10 (mL/min/1.73m2) 02/13/24 09:20 Magnesium 1.6 mg/dL (1.8-2.4) L 02/13/24 09:20 Calcium 8.0 mg/dL (8.5-10.1) L 02/13/24 09:20 Albumin 1.8 g/dL (3.4-5.0) L 02/13/24 09:20 Glucose 100 mg/dL (74-106) 02/13/24 09:20 C-Reactive Protein 15.67 mg/dL (<or=0.5) H 02/13/24 09:20 Liver Function Panel: 2 Alanine Aminotransferase (ALT/SGPT) 19 U/L (16-63) 02/13/24 09: 20 Aspartate Amino Transf (AST/SGOT) 33 U/L (15-37) 02/13/24 09:20 Coagulation Panel: 2 INR International Normalized Ratio 1.2 (0.9-1.1) H 01/24/24 17 :51 Prothrombin Time 11.5 sec (9.1-11.1) H 01/24/24 17:51 Cardiac Panel: 2 Creatine Kinase 34 U/L (39-308) L 02/13/24 Arterial Blood Gas: 2 No Data to Display Venous Blood Gas: 2 No Data to Display Pancreas Panel: 2 No Data to Display Thyroid Panel: 2 No Data to Display Infectious Disease: 2 No Data to Display Blood Cultures: 2 No Data to Display Toxicology Panel: 2 No Data to Display Anesthesia Assessment and Plan Anesthesia History Personal History: No History of Anesthesia Complications and Unknown Anesthesia History Family History: Family History Unknown Exercise Tolerance Exercise Tolerance: Metabolic Equivalents>4 Pertinent Negatives Pertinent Negatives: No Symptoms of GERD Cardiac & Pulmonary Exam Cardiac Exam: Normal S1/S2 Heart Sounds Pulmonary Exam: Clear Bilateral Breath Sounds Implantable Cardiac Device Does patient have a Pacemaker or an ICD?: No Airway Exam Known Difficult Airway: No Mallampati Class: 2 Mouth Opening: Normal (> 3cm) Thyromental Distance: Greater than 3 cm Neck Range of Motion: Full ROM Neck Circumference: Normal Teeth Condition: Generalized Poor Dentition ASA Classification ASA Score: ASA 4 Emergency Case?: Yes NPO Status NPO Status: NPO Clears >2 hours, Solids >8 hours Anesthesia Plan Resuscitation Status: Full Code Anesthesia Technique: General Anesthesia Airway Planned: Endotracheal Tube Monitors Used: Standard Monitors, Arterial Line, Central Line and Cerebral Oximetry Preoperative Comments:: Known patient with rectal cancer undergoing complex I&D of abcess. Central line and arterial line will be placed. Currently on Levophed and septic.
[2024-02-13 12:42] LABS: Lactate 2.6 mmol/L (0.6-1.4)
[2024-02-13] MEDS: Lactated Ringers 1,000 ML 50 ML IV ×2 (13:08→13:55)
[2024-02-13] MEDS: Lidocaine 1% Pres-Free 30 ML VIAL (14:16)
[2024-02-13] MEDS: Gentamicin 80 MG/2 ML VIAL 900 MG IV (14:16)
--- NOTE | 2024-02-13 14:56 | ROE_ITS ---
Date of service: 02/13/24 Time of Service: 14:56 Operative Note Operative Note PRE-OP DIAGNOSIS: Recurrent right-sided ischial fossa abscess, soft tissue infection, extension to the right posterior thigh deep to the fascia same PROCEDURE: 1. Incision debridement right posterior thigh abscess 2. perineal exam under anesthesia, with tissue biopsies SURGEON: Gatito Jose ANESTHESIA TYPE: General LMA/ETT Refer to Anesthesia Record ESTIMATED BLOOD LOSS: 50 PATHOLOGY: other (1. perineal nodules) COMPLICATIONS: None Patient was transported to: PACU Patient's condition: critical Implants: 1. Wound packing into posterior thigh abscess Kerlix gauze sponges x2 Indications: Soft tissue infection, hypotension associated with sepsis, CT imaging demonstrating recurrent large abscess Right lower extremity Findings: 1. Large Vacuoated abscess, likely originating in the right ischial fossa, with extension into the soft tissue and extension deep to the biceps femoris muscle fascia and semitendinosis 2. Nonfunctioning IR guided drain positioned at the greater trochanter 3. Foul-smelling malodorous copious discharge 4. Multiple fungating nodules in the perineal region, associated with soft tissue defect status post chemoradiation therapy, suspicious for recurrent sq uamous cell carcinoma Procedure Description: The patient was transferred to the operating room, timeout performed confirming name, date of , medical record number, all staff present agreed upon proposed procedure incision drainage debridement drain placement, removal of nonfunctioning drain, and perineal exam under anesthesia Possible biopsies, all indicated procedures. The patient was placed under general endotracheal anesthesia without complications. An orogastric tube was inserted. The patient was then positioned in a left lateral corkscrew position, with the patient on the left lateral decubitus side, an axillary roll was positioned in appropriate place. Pillows were placed to support the right arm, bony prominences were padded, the right hip and the right knee replaced in a 45 degree flexion for exposure of the right posterior thigh, and the area of concern. Next the drain was removed. The right flank right hip, and right proximal lower extremity were prepped and draped in the usual sterile fashion with a ChloraPrep solution. 3 minutes were allowed to dry. Exam of the surgical field was performed, the drain site was associate with purulent discharge, and fibrinous exudate coming out of the opening in the wound. The right posterior thigh was palpated, there is fluctuance, there is induration however no erythema as the infectious process was deep to the skin. Comparing the CT imaging, I chose a location overlying the distal biceps femoris, and injecting 3 cc of 1% lidocaine without epinephrine into the skin, an incision in the skin approximately 1-1/2 inches in length with the Bovie cautery, dividing the soft tissue, using retractors to expose the tissue. Once through the subcutaneous tissue, I encountered the first layer of fascia, using a hemostat I was able to dissect spreading the muscle fibers without transecting them, and entering into the deep fascia of the biceps femoris, and once I entered this space, a foul-smelling malodorous discharge began to escape under pressure. I then placed my finger into the opening, palpating the cavity, I used manual palpation to create a counterincision, protecting the underlying soft tissue structures, and superficially creating an opening avoiding the sciatic nerve and the femoral nerve. Using the electrocautery I dissected down on the tip of my f marivel proximally opening the skin in a similar manner using retraction. Once the subcutaneous tissue was dissected and opened, I used the hemostat to enter bluntly through the superficial fascia of the bifid subs femoris muscle, spreading the muscle fibers without transecting them, and entered through the deep layer communicating with the abscess cavity. The incision was extended to approximately 4 cm in length, I was able to enter the Pulsavac into the abscess cavity. I proceeded with irrigation of a dilute antibiotic solution containing gentamicin and vancomycin and used 3 L with the Pulsavac to irrigate and debride the abscess cavity, debulking the purulent drainage, and a fibrous tissue. At the conclusion of 3 L, I placed 2 quarter-inch Fiordaliza drains in a loop manner, securing the drains with silk stick ties so that the drain could not be accidentally removed by the patient. After the majority of the abscess cavity was debrided, inspected the wound for hemostasis, hemostasis was obtained with electrocautery at the superficial layers including the skin, subcutaneous tissue, and some of the muscle fibers requiring spot electrocautery. Next the insertion site of the IR guided drain was examined, this was debrided with the end of the hemostat, and the incision was extended just enough to allow for packing with wick gauze. On inspection of the wound, the patient is very skinny and very thin, the skin and subcutaneous tissue overlying the greater trochanter allowed for inspection and visualization of the iliotibial band and the fascial fibers. This aspect of the wound was irrigated with the Pulsavac, and was otherwise clear and unremarkable without purulent drainage from the deep tissues. Finally in the right lateral corkscrew position, a perineal examination was performed, there is a large tissue defect approximately 4 cm in the anterior posterior dimension, 3 cm transversely, with multiple nodules arising from the edge of the skin. This is highly suspicious for recurrent squamous cell carcinoma, and multiple nodules were removed and sent for permanent pathology in formalin. Hemostasis was obtained with electrocautery at the edge of the wound. A pulmonary count was performed for me and all needles, sponges, and instruments were accounted for. All counts were correct.
[2024-02-13 15:41] LABS: Abs Immature Grans 0.25 10^3/uL (0.0-0.06); Absolute Monocyte Count 0.79 10^3/uL (0.1-0.8); Basophils % 0.4; HCT 30.9 % (40.0-50.0); HGB 10.2 g/dL (13.5-17.5); Immature Grans % 0.9; MCH 29.3 pg (27.0-33.0); MCV 89 fL (80-95); MPV 8.5 fL (8.0-11.0); Monocytes % 2.7; Platelet Count 372 10^3/uL (130-400); RBC 3.48 10^6/uL (4.36-5.78); RDW 14.8 % (11.8-14.1); RDW-SD 48.2 fL
[2024-02-13 15:54] LABS: Absolute Basophil Count 0.12 10^3/uL (0.0-0.2); Absolute Lymphocyte Count 0.29 10^3/uL (1.2-3.4); Absolute Neutrophil Count 27.71 10^3/uL (1.2-6.7)
--- NOTE | 2024-02-13 16:03 | DI.VRAD_ITS ---
PROCEDURE INFORMATION: Exam: XR Chest Exam date and time: 02/13/2024 3:52 PM Age: 63 years old Clinical indication: Other: S/P central line placement TECHNIQUE: Imaging protocol: Radiologic exam of the chest. Views: 1 view. COMPARISON: CT CHEST W 04/10/2024 14:12 FINDINGS: Tubes, catheters and devices: Right IJ central line in place extending to the mid SVC. Lungs: Coarsened markings throughout both lungs probably reflecting underlying COPD. Pleural spaces: Unremarkable. No pleural effusion. No pneumothorax. Heart/Mediastinum: Cardiomediastinal silhouette is normal. Bones/joints: Unremarkable. IMPRESSION: Satisfactory CVL placement. Dictated and Authenticated by: Zeus Gambino MD. Ordering:RYAN Brown MD
--- NOTE | 2024-02-13 16:13 | W.ANESVAS ---
Arterial Line Placement Date Performed: 02/13/24 Procedure Time: 13:30 Procedure Location: Operating Room Requesting Provider: Gatito Jose Timeout Performed: Yes Sedation Given (Indicate Dose Given): No Sedation given Patient Mental Status: Performed under general anesthesia Sterility: Hand Hygiene, Surgical Cap, Surgical Mask, Sterile Gloves, Sterile Drape/Sheet, Eye Protection and Chlorhexidine Laterality: Left Insertion Site: Radial Arterial Line Catheter: 20G Arrow Arterial Line Procedure: Vessel accessed with needle, Guidewire placed with ease and Catheter placed without resistance Dressing: Tegaderm Applied and Mastisol Used Ultrasound: Sterile probe cover and gel used Ultrasound Image Saved?: Yes Number of Attempts (See previous attempts in note section): 1 Procedure Tolerated: No Complications and Patient tolerated well Procedure Outcome: Successful Performed By: Kevin Bardales
[2024-02-13 16:15] LABS: ALT 19 U/L (16-63); AST 38 U/L (15-37); Albumin 1.7 g/dL (3.4-5.0); Alkaline Phosphatase 157 U/L (46-116); Anion Gap 7.2 mmol/L (3-11); BUN 11 mg/dL (7-18); Bilirubin, Total 1.4 mg/dL (0.2-1.0); CO2 27.8 mmol/L (21.0-32.0); Calcium 8.1 mg/dL (8.5-10.1); Chloride 101 mmol/L (98-107); Glucose 144 mg/dL (74-106); Magnesium 2.5 mg/dL (1.8-2.4); Potassium 3.6 mmol/L (3.5-5.1); Sodium 136 mmol/L (136-145); Total Protein 5.9 g/dL (6.4-8.2)
--- NOTE | 2024-02-13 16:16 | W.ANESVAS ---
Central Venous Line Placement Date Performed: 02/13/24 Procedure Time: 15:15 Procedure Location: Operating Room Requesting Provider: Gatito Jose Standard Monitors Applied: ECG, Blood Pressure, SpO2, ETCO2 and See EMR for corresponding vital signs Pt. Position: Supine Timeout Performed: Yes Sedation Given (Indicate Dose Given): No Sedation given Patient Mental Status: Performed under general anesthesia Sterility: Hand Hygiene, Surgical Cap, Surgical Mask, Sterile Gloves, Sterile Drape/Sheet, Sterile Gown, Eye Protection and Chlorhexidine Laterality: Right Insertion Site: Internal Jugular (IJ) Central Line Type: 7 [place] and Triple Lumen Catheter Insertion Procedure: Vessel accessed with needle, Guidewire placed with ease, Dilator placed without resistance, Introducer/Catheter placed without resistance, Guidewire removed and Claves placed, blood withdrawn, ports flushed and clamped Dressing: Sorbaview Dressing Placed, BioPatch and Sutured in Place Catheter Depth at Skin (cm): 16 Placement Confirmation: Confirmation X-Ray Ordered and Correct Tip Placement Confirmed by X-Ray Ultrasound: Sterile probe cover and gel used Ultrasound Image Saved?: Yes Number of Attempts (See previous attempts in note section): 1 Procedure Tolerated: No Complications and Patient tolerated well Procedure Outcome: Successful Performed By: Kevin Bardales
[2024-02-13 16:22] LABS: Troponin I 1013 ng/L (< or =60)
[2024-02-13 16:23] LABS: Diff Comment Diff Reviewed; RBC Morphology Normal; WBC 29.17 10^3/uL (4.4-10.8)
--- NOTE | 2024-02-13 16:45 | RT.EKG_ITS ---
APPROVED REPORT Exam: Resting ECG Reason for Exam: elevated troponin Patient Location: I HR:85 bpm ECG Measurements Heart Rate 85 AXIS TN 127 P 86 QRSd 96 QRS 77 QT 381 T 60 QTc 453 Conclusion Sinus rhythm...normal P axis, V-rate 50- 99 Multiform ventricular premature complexes...short R-R, variable morphology
--- NOTE | 2024-02-13 17:07 | PGE_ITS ---
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 He is s/p stool-diversion with a functioning colostomy. s/p emergent incision and debridement right posterior thigh abscess measured 33 x 5.5 x 6 cm in dimension on 02/13/2024 admitted to ICU after surgical management icu admission labs with critical results serum troponin > 1000 ng/dl WBC 29,000 Sepsis: WBC > 53210 end-organ dysfunction as evidenced by hypotension, requirement for vasoactive support known source for infection Severe protein calorie malnutrition: -evidenced by albumin 1.7 -weight loss of 25 lbs, >10% body weight in <6 months Hypotension: -admin another 1 L saline bolus -maintenance fluids -continue pressor support, wean to MAP 60-65 mmHg Elevated troponin: -troponin >1000 ng/dl -repeat troponin result > 2000 ng/dl Concern for cardiac ischemia: -admin 325 mg Aspirin now -may require initiation of heparin gtt -at this time there is a serious risk of post-procedure hemorrhage associated with anticoagulation therapy -only 3 hours since surgery w/ debridement deep abscess -hospitalist service consulted for recommendations -cardiology consult when available for evaluatoin -repeat serial troponins (2) Soft tissue infection: Status: Acute Subjective Subjective Interval history since last seen: admitted to ICU after surgery surgical site pain is well controlled he is having minimal pain not having any chest pain, no shortness of breath, no increase effort of breathi ng, no nausea he denies a history of heart problems, no known hx of CAD, or CT. He is a heavy smoker, unmotivated to quit. I did have a discussion wiht him about his goals of care, he understands his likely SCC recurrence, and he and Dr. Gambino have agreed that Surgical management/anterior perineal resection and reconstruction would likely not provide cure. He has voiced his desire with Dr. Gambino on 02/08/2024 to avoid prolonged hospitalization, which is a big reason for electing not to pursue APR. Today he has voiced his desire not to be transferred to [facility], he understands that he may be having a heart-attack based upon abnormal lab values, and sepsis. Despite knowing we do not have the ability to perform cardiac catheterization if indicated, he would not want to be transferred at this time. He is open to further discussions later. For his code status, he confirms Full code. He provides permission for intubation, mechanical ventilation if indicated. He would accept CPR, chest compressions, and he understands he is already requiring special medication to keep his blood pressure in a near normal range. He understands that he could develop rapid deterioration and may not have time to have further discussions. He did state, that if there was no chance for recovery, he would not wish to be kept alive in a ventilated state. If temporary, he would agree to tracheostomy, and feeding tube and other means of life support if there was reasonable hope that he would recover. His brother Sabas and [id number] Franca, and Friends - Jovanny Damon and Ursula Damon are his closest to him. 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, quite-sleepy Objective Last Vital Signs Temp 97.9 F 02/13/24 15:37 Pulse 67 02/13/24 15:37 Resp 21 02/13/24 15:37 BP 118/59 L 02/13/24 15:37 Pulse Ox 100 02/13/24 15:37 Laboratory Results - last 24 hr 02/13/24 02/13/24 02/13/24 09:20 09:20 12:30 WBC 14.83 H RBC 3.02 L Hgb 8.9 L Hct 26.8 L MCV 89 MCH 29.5 MCHC 33.2 RDW 14.6 H Plt Count 193 MPV 8.5 Immature Gran % 0.9 Neutrophils % 94.3 Lymphocytes % 1.1 Monocytes % 3.5 Eosinophils % 0.0 Basophils % 0.2 Nucleated RBC % 0.0 Absolute Neutrophils 13.98 H Absolute Lymphocytes 0.16 L Absolute Monocytes 0.52 Absolute Eosinophils 0.00 Absolute Basophils 0.03 RBC Morphology ESR 70 H VBG Lactate 2.6 H* 2.6 H* Sodium 131 L Potassium 3.2 L Chloride 95 L Carbon Dioxide 28.5 Anion Gap 7.5 BUN 11 Creatinine 1.0 Est GFR (CKD-EPI 2020) 85.10 Glucose 100 Calcium 8.0 L Magnesium 1.6 L Total Bilirubin 1.1 H AST 33 ALT 19 Alkaline Phosphatase 163 H Creatine Kinase 34 L Cancelled Troponin I C-Reactive Protein 15.67 H Total Protein 5.9 L Albumin 1.8 L 02/13/24 15:30 WBC 29.17 H* RBC 3.48 L Hgb 10.2 L Hct 30.9 L MCV 89 MCH 29.3 MCHC 33.0 RDW 14.8 H Plt Count 372 D MPV 8.5 Immature Gran % 0.9 Neutrophils % 95.0 Lymphocytes % 1.0 Monocytes % 2.7 Eosinophils % 0.0 Basophils % 0.4 Nucleated RBC % 0.0 Absolute Neutrophils 27.71 H Absolute Lymphocytes 0.29 L Absolute Monocytes 0.79 Absolute Eosinophils 0.00 Absolute Basophils 0.12 RBC Morphology Normal ESR VBG Lactate Sodium 136 Potassium 3.6 Chloride 101 Carbon Dioxide 27.8 Anion Gap 7.2 BUN 11 Creatinine 1.0 Est GFR (CKD-EPI 2020) 85.10 Glucose 144 H Calcium 8.1 L Magnesium 2.5 H Total Bilirubin 1.4 H AST 38 H ALT 19 Alkaline Phosphatase 157 H Creatine Kinase Troponin I 1013 H* C-Reactive Protein Total Protein 5.9 L Albumin 1.7 L Time Spent with Patient Time Spent with Patient: >50 minutes Time was spent: preparing to see the patient(eg.review tests), obtaining and/or reviewing separately otained hiistory, ordering medications,tests, procedures, referring, communicating with other health disabilities caregiver, indepentently interpreting results and counseling the patient
[2024-02-13 17:35] LABS: Troponin I 2086 ng/L (< or =60)
[2024-02-13] MEDS: Normal Saline 1,000 ML 1000 ML IV (18:02)
[2024-02-13] MEDS: Norepinephrine in D5W 8 MG/250 ML BAG 18 MG IV (18:07)
[2024-02-13 18:27] LABS: Bilirubin Negative (Negative); Blood Moderate (Negative); Clarity Clear (Clear); Glucose Negative (Negative); Ketones Negative (Negative); Leukocyte Esterase Negative (Negative); Nitrite Negative (Negative); Specific Gravity <= 1.005 (1.005-1.025); Urobilinogen 0.2 mg/dL (Up to 0.2); pH 5.5 (5-8)
[2024-02-13 18:33] LABS: Bacteria Negative HPF (Negative); C & S Indicated? No; Crystals Negative HPF (Negative); Epithelial Cells Negative HPF (Negative); Mucus Negative (Negative); WBC 0-2 HPF (0-5)
[2024-02-13] MEDS: metroNIDAZOLE 500 MG/100 ML BAG 100 MG IVPB (18:40)
[2024-02-13] MEDS: Aspirin 325 MG TAB PO (18:40)
[2024-02-13] MEDS: POTASSIUM CHLORIDE 20 MEQ/100 ML BAG 50 MEQ IVPB ×2 (18:40→20:48)
--- NOTE | 2024-02-13 18:57 | W.MEDCONSULT ---
Date of service: 02/13/24 Time of Service: 18:57 Assessment and Plan Assessment and plan (1) Elevated troponin: Status: Acute Assessment and plan: I think this is likely demand ischemia secondary to documented hypotension in setting of septic shock, manifesting with transient EKG changes. I think true ACS is unlikely, though he does have risk factors. Would advise continued supportive care to maintain BP. Will trend troponins and EKG. Would NOT advise heparin at this time, nor beta blockers. History of Present Illness History of Present Illness Chief Complaint: elevated troponin Narrative: 63 male admitted earlier today with massive thigh abcess, presenting with pain , leukocytosis and hypotension; s/p I/D. Blood pressures as low as 60s noted pre-op. Pre-op EKG shows lateral ST inversions. Post op trop 1, then 2085 one hour later. Post opp EKG shows frequent ectopy and normalization of previously noted TW inversions. Patient is currently on Levophed and triple antibiotics, and has received a dose of ASA. Patient denies CP or SOB. No h/o CAD, risk factors include h/o HTN and is a smoker. 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) Pelvic abscess in male (Acute) High risk medication use (Acute) Abnormal weight loss (Acute) Skin ulcer of perineum with fat layer exposed (Acute) History of alcohol abuse (Acute) Advanced care planning/counseling discussion (Acute) Palliative care encounter (Acute) Cancer related pain (Acute) Controlled substance agreement and informed consent obtained 12/14/2023 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 (Acute) Housing insecurity (Acute) Food insecurity (Acute) 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 COPD (chronic obstructive pulmonary disease) (Chronic) Hypoalbuminemia due to protein-calorie malnutrition (Acute) Microcytic anemia (Acute) Smoker (Acute) Medical History ETOH abuse Resolved February 2023 Surgical History Status post radiation therapy Family History Other Cancer Social History Smoking/Tobacco Use Status: Current every day Tobacco Type: cigarettes Smoking risk assessment performed?: Yes Alcohol Intake: former Drug use: Rarely Substance use type: marijuana Housing: apartment Do you feel safe at home: Yes Do you feel safe in your relationship?: Yes Exam Narrative Exam Narrative: 118/59, 67, 36.6, 23, 96%. Lungs grossly clear to anterior exam; heart distant, RRR; extremities w/o edema Results Last Vital Signs Temp 36.6 C 02/13/24 16:54 Pulse 67 02/13/24 15:37 Resp 23 02/13/24 17:10 BP 118/59 L 02/13/24 15:37 Pulse Ox 96 02/13/24 17:10 Labs 02/13/24 15:30 02/13/24 15:30 Labs: Laboratory Results - last 24 hr 02/13/24 02/13/24 02/13/24 09:20 09:20 12:30 WBC 14.83 H RBC 3.02 L Hgb 8.9 L Hct 26.8 L MCV 89 MCH 29.5 MCHC 33.2 RDW 14.6 H Plt Count 193 MPV 8.5 Immature Gran % 0.9 Neutrophils % 94.3 Lymphocytes % 1.1 Monocytes % 3.5 Eosinophils % 0.0 Basophils % 0.2 Nucleated RBC % 0.0 Absolute Neutrophils 13.98 H Absolute Lymphocytes 0.16 L Absolute Monocytes 0.52 Absolute Eosinophils 0.00 Absolute Basophils 0.03 RBC Morphology ESR 70 H VBG Lactate 2.6 H* 2.6 H* Sodium 131 L Potassium 3.2 L Chloride 95 L Carbon Dioxide 28.5 Anion Gap 7.5 BUN 11 Creatinine 1.0 Est GFR (CKD-EPI 2020) 85.10 Glucose 100 Calcium 8.0 L Magnesium 1.6 L Total Bilirubin 1.1 H AST 33 ALT 19 Alkaline Phosphatase 163 H Creatine Kinase 34 L Cancelled Troponin I C-Reactive Protein 15.67 H Total Protein 5.9 L Albumin 1.8 L Urine Color Urine Clarity Urine pH Ur Specific Haw[place] Urine Protein Urine Ketones Urine Blood Urine Nitrite Urine Bilirubin Urine Urobilinogen Ur Leukocyte Esterase Urine RBC Urine WBC Ur Epithelial Cells Urine Crystals Urine Bacteria Urine Mucus Ur Culture Indicated? Urine Glucose 02/13/24 02/13/24 02/13/24 15:30 16:50 18:20 WBC 29.17 H* RBC 3.48 L Hgb 10.2 L Hct 30.9 L MCV 89 MCH 29.3 MCHC 33.0 RDW 14.8 H Plt Count 372 D MPV 8.5 Immature Gran % 0.9 Neutrophils % 95.0 Lymphocytes % 1.0 Monocytes % 2.7 Eosinophils % 0.0 Basophils % 0.4 Nucleated RBC % 0.0 Absolute Neutrophils 27.71 H Absolute Lymphocytes 0.29 L Absolute Monocytes 0.79 Absolute Eosinophils 0.00 Absolute Basophils 0.12 RBC Morphology Normal ESR VBG Lactate Sodium 136 Potassium 3.6 Chloride 101 Carbon Dioxide 27.8 Anion Gap 7.2 BUN 11 Creatinine 1.0 Est GFR (CKD-EPI 2020) 85.10 Glucose 144 H Calcium 8.1 L Magnesium 2.5 H Total Bilirubin 1.4 H AST 38 H ALT 19 Alkaline Phosphatase 157 H Creatine Kinase Troponin I 1013 H* 2086 H* C-Reactive Protein Total Protein 5.9 L Albumin 1.7 L Urine Color Yellow Urine Clarity Clear Urine pH 5.5 Ur Specific Haw[place]orn <= 1.005 Urine Protein Negative Urine Ketones Negative Urine Blood Moderate H Urine Nitrite Negative Urine Bilirubin Negative Urine Urobilinogen 0.2 Ur Leukocyte Esterase Negative Urine RBC 5-10 H Urine WBC 0-2 Ur Epithelial Cells Negative Urine Crystals Negative Urine Bacteria Negative Urine Mucus Negative Ur Culture Indicated? No Urine Glucose Negative
[2024-02-13 19:06] LABS: Anion Gap 10.6 mmol/L (3-11); BUN 12 mg/dL (7-18); CO2 25.4 mmol/L (21.0-32.0); CREATININE 1.1 mg/dL (0.70-1.30); Calcium 7.9 mg/dL (8.5-10.1); Chloride 101 mmol/L (98-107); Glucose 128 mg/dL (74-106); Potassium 3.5 mmol/L (3.5-5.1); Sodium 137 mmol/L (136-145)
[2024-02-13] MEDS: Normal Saline 1,000 ML 100 ML IV (19:57)
[2024-02-13] MEDS: CLINDAMYCIN 900 MG/50 ML BAG 50 MG IVPB (19:57)
--- NOTE | 2024-02-13 20:15 | RT.EKG_ITS ---
APPROVED REPORT Exam: Resting ECG Reason for Exam: elevated troponin Patient Location: I HR:78 bpm ECG Measurements Heart Rate 78 AXIS KS 132 P 79 QRSd 70 QRS 73 QT 390 T 75 QTc 445 Conclusion Sinus rhythm...normal P axis, V-rate 50- 99 Poor R wave progression
--- NOTE | 2024-02-13 20:19 | W.ANESPOSTOP ---
Postoperative Evaluation Date, Time and Location Date Performed: 02/13/24 Time Performed: 20:19 Patient Location: Intensive Care Unit Vital Signs Most Recent Imported Vital Signs: Most Recent Vital Signs Temp Pulse Resp BP Pulse Ox 36.6 C 67 23 118/59 L 96 02/13/24 16:54 02/13/24 15:37 02/13/24 17:10 02/13/24 15:37 02/13/24 17:10 Pain Score Most Recent Pain Score: Most Recent Pain Score Pain Level 6 02/13/24 16:54 Assessment Mental Status: Awake (Alert & Oriented to Patient Baseline) Airway and Respiratory Function: Patent airway with normal (patient baseline) respiratory exam Cardiovascular Function: Hemodynamically Stable (with Norepinephrine support) Hydration Status: Adequately Hydrated Nausea & Vomiting: No Nausea or Vomiting Pain: Pain is tolerable per patient Peripheral Nerve Block: Patient did not receive a nerve block Postoperative Comments:: Pt extubated at end of surgical procedure without complications. Lab noted with significant bump in troponin. Medical MD questioning cardiac event? Pt descibed no chest pain after extubation and on follow-up in the ICU. IJ central line confirmed with CXR and read by radiologist. Nyla Bardales CRNA
[2024-02-13 21:00] LABS: Troponin I 2068 ng/L (< or =60)
[2024-02-13] MEDS: oxyCODONE 15 MG TAB PO (23:00)
[2024-02-14] VITALS (53 sets, daily range): BP systolic 113–120; BP diastolic 45–49; PULSE 60–99; RESP 11–25; TEMP 36.8–37.1; O2SAT 93–99
[2024-02-14] MEDS: Patch Removal 1 EACH TD (01:04)
[2024-02-14] MEDS: CLINDAMYCIN 900 MG/50 ML BAG 50 MG IVPB ×3 (01:54→23:59)
[2024-02-14] MEDS: Normal Saline Flush 10 ML SYR IVP (01:54)
[2024-02-14] MEDS: Normal Saline 1,000 ML 100 ML IV ×3 (02:23→23:19)
[2024-02-14] MEDS: metroNIDAZOLE 500 MG/100 ML BAG 100 MG IVPB ×3 (02:24→17:10)
[2024-02-14] MEDS: oxyCODONE 15 MG TAB PO ×5 (03:01→23:18)
[2024-02-14] MEDS: Norepinephrine in D5W 8 MG/250 ML BAG 10 MG IV (03:34)
[2024-02-14] MEDS: Nicotine 21 MG/24 HR PATCH TD (06:26)
[2024-02-14 06:47] LABS: Abs Immature Grans 0.09 10^3/uL (0.0-0.06); Absolute Lymphocyte Count 0.22 10^3/uL (1.2-3.4); Absolute Monocyte Count 0.25 10^3/uL (0.1-0.8); Basophils % 0.2; Eosinophils % 0.2; HCT 27.2 % (40.0-50.0); HGB 8.8 g/dL (13.5-17.5); Immature Grans % 0.7; Lymphocytes % 1.7; MCH 28.5 pg (27.0-33.0); MCHC 32.4 % (32.0-36.0); MCV 88 fL (80-95); MPV 9.4 fL (8.0-11.0); Neutrophils % 95.2; Platelet Count 277 10^3/uL (130-400); RBC 3.09 10^6/uL (4.36-5.78); RDW 14.9 % (11.8-14.1); RDW-SD 47.9 fL; WBC 12.69 10^3/uL (4.4-10.8)
--- NOTE | 2024-02-14 07:00 | RT.EKG_ITS ---
APPROVED REPORT Exam: Resting ECG Reason for Exam: elevated troponin Patient Location: I HR:69 bpm ECG Measurements Heart Rate 69 AXIS DE 135 P 71 QRSd 94 QRS 76 QT 424 T 88 QTc 455 Conclusion Sinus rhythm...normal P axis, V-rate 50- 99 Borderline low voltage, extremity leads...all extremity leads <0.6mV Baseline wander in lead(s) V3 Otherwise normal ECG
[2024-02-14 07:05] LABS: Troponin I < 50 ng/L (< or =60)
[2024-02-14 07:11] LABS: Absolute Basophil Count 0.03 10^3/uL (0.0-0.2); Absolute Eosinophil Count 0.03 10^3/uL (0.0-0.7); Absolute Neutrophil Count 12.08 10^3/uL (1.2-6.7)
[2024-02-14 07:16] LABS: ALT 17 U/L (16-63); AST 43 U/L (15-37); Albumin 1.4 g/dL (3.4-5.0); Alkaline Phosphatase 139 U/L (46-116); Anion Gap 8.1 mmol/L (3-11); BUN 8 mg/dL (7-18); Bilirubin, Direct 0.4 mg/dL (0.0-0.2); Bilirubin, Total 0.6 mg/dL (0.2-1.0); CO2 24.9 mmol/L (21.0-32.0); CREATININE 0.8 mg/dL (0.70-1.30); Calcium 7.4 mg/dL (8.5-10.1); Chloride 107 mmol/L (98-107); Estimated GFR 100.06 (mL/min/1.73m2); Glucose 152 mg/dL (74-106); Potassium 3.8 mmol/L (3.5-5.1); Sodium 140 mmol/L (136-145); Total Protein 5.3 g/dL (6.4-8.2)
--- NOTE | 2024-02-14 07:32 | DI.VRAD_ITS ---
PROCEDURE INFORMATION: Exam: XR Chest Exam date and time: 02/14/2024 6:17 AM Age: 63 years old Clinical indication: Other: Leukocytosis, sepsis TECHNIQUE: Imaging protocol: Radiologic exam of the chest. Views: 1 view. COMPARISON: CR XR PORTABLE CHEST AP 02/13/2024 3:52 PM and chest x-ray 12/09/2023. FINDINGS: Tubes, catheters and devices: Right internal jugular vein catheter with tip in the region of the distal SVC. Lungs: Previously seen coarsened markings at the lung bases have resolved. No new consolidation . Pleural spaces: Unremarkable. No pleural effusion. No pneumothorax. Heart/Mediastinum: Unremarkable. No cardiomegaly. Vasculature: Atherosclerotic disease. Bones/joints: Unremarkable. IMPRESSION: No acute findings. Dictated and Authenticated by: Jennifer Sierra MD. Ordering:DAJA Mederos MD
--- NOTE | 2024-02-14 08:28 | W.CARDCONSUL ---
Date of service: 02/14/24 Time of Service: 08:28 Assessment and Plan Assessment and plan (1) Elevated troponin: Status: Acute Assessment and plan: I would concur with Dr. Duarte that this is a type II myocardial infarction due to demand ischemia on the basis of sepsis. There is no indication for heparin. There is no indication for beta-oniel. I would recommend an echocardiogram to assess LV function, continue supportive care. I would not recommend an ischemic evaluation such as a myocardial perfusion imaging study nor cardiac catheterization. Baby aspirin would be reasonable. Please do not hesitate to request reevaluation if necessary History of Present Illness History of Present Illness Chief Complaint: Abscess, sepsis Narrative: This is a 63-year-old man who has a history of squamous cell carcinoma of the anus. He has been followed at [facility]. He presented here to the hospital with a very large abscess and sepsis. He required surgical intervention. In addition to sepsis he was found to have an elevated troponin. On that basis cardiac evaluation was requested. Initial electrocardiogram in the emergency room showed minimal anterolateral ST depression. All subsequent EKGs have been normal. The patient's troponin has also normalized as his medical status improves. He was seen by Dr. Duarte with the hospitalist who felt this was a type II myocardial infarction due to demand ischemia on the basis of sepsis. 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) Pelvic abscess in male (Acute) High risk medication use (Acute) Abnormal weight loss (Acute) Skin ulcer of perineum with fat layer exposed (Acute) History of alcohol abuse (Acute) Advanced care planning/counseling discussion (Acute) Palliative care encounter (Acute) Cancer related pain (Acute) Controlled substance agreement and informed consent obtained 12/14/2023 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 (Acute) Housing insecurity (Acute) Food insecurity (Acute) 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 COPD (chronic obstructive pulmonary disease) (Chronic) Hypoalbuminemia due to protein-calorie malnutrition (Acute) Microcytic anemia (Acute) Smoker (Acute) Medical History ETOH abuse Resolved February 2023 Surgical History Status post radiation therapy Family History Other Cancer Social History Smoking/Tobacco Use Status: Current every day Tobacco Type: cigarettes Smoking risk assessment performed?: Yes Alcohol Intake: former Drug use: Rarely Substance use type: marijuana Housing: apartment Do you feel safe at home: Yes Do you feel safe in your relationship?: Yes Exam Narrative Exam Narrative: Patient was not examined Results Last Vital Signs Temp 36.8 C 02/14/24 05:16 Pulse 79 02/14/24 05:16 Resp 17 02/14/24 06:30 BP 118/59 L 02/13/24 15:37 Pulse Ox 98 02/14/24 06:30 Labs 02/14/24 05:30 02/14/24 05:30 Labs: Laboratory Results - last 24 hr 02/13/24 02/13/24 02/13/24 09:20 09:20 12:30 WBC 14.83 H RBC 3.02 L Hgb 8.9 L Hct 26.8 L MCV 89 MCH 29.5 MCHC 33.2 RDW 14.6 H Plt Count 193 MPV 8.5 Immature Gran % 0.9 Neutrophils % 94.3 Lymphocytes % 1.1 Monocytes % 3.5 Eosinophils % 0.0 Basophils % 0.2 Nucleated RBC % 0.0 Absolute Neutrophils 13.98 H Absolute Lymphocytes 0.16 L Absolute Monocytes 0.52 Absolute Eosinophils 0.00 Absolute Basophils 0.03 RBC Morphology ESR 70 H VBG Lactate 2.6 H* 2.6 H* Sodium 131 L Potassium 3.2 L Chloride 95 L Carbon Dioxide 28.5 Anion Gap 7.5 BUN 11 Creatinine 1.0 Est GFR (CKD-EPI 2020) 85.10 Glucose 100 Calcium 8.0 L Magnesium 1.6 L Total Bilirubin 1.1 H Conjugated Bilirubin AST 33 ALT 19 Alkaline Phosphatase 163 H Creatine Kinase 34 L Cancelled Troponin I C-Reactive Protein 15.67 H Total Protein 5.9 L Albumin 1.8 L Urine Color Urine Clarity Urine pH Ur Specific [place] Urine Protein Urine Ketones Urine Blood Urine Nitrite Urine Bilirubin Urine Urobilinogen Ur Leukocyte Esterase Urine RBC Urine WBC Ur Epithelial Cells Urine Crystals Urine Bacteria Urine Mucus Ur Culture Indicated? Urine Glucose 02/13/24 02/13/24 02/13/24 15:30 16:50 18:20 WBC 29.17 H* RBC 3.48 L Hgb 10.2 L Hct 30.9 L MCV 89 MCH 29.3 MCHC 33.0 RDW 14.8 H Plt Count 372 D MPV 8.5 Immature Gran % 0.9 Neutrophils % 95.0 Lymphocytes % 1.0 Monocytes % 2.7 Eosinophils % 0.0 Basophils % 0.4 Nucleated RBC % 0.0 Absolute Neutrophils 27.71 H Absolute Lymphocytes 0.29 L Absolute Monocytes 0.79 Absolute Eosinophils 0.00 Absolute Basophils 0.12 RBC Morphology Normal ESR VBG Lactate Sodium 136 Potassium 3.6 Chloride 101 Carbon Dioxide 27.8 Anion Gap 7.2 BUN 11 Creatinine 1.0 Est GFR (CKD-EPI 2020) 85.10 Glucose 144 H Calcium 8.1 L Magnesium 2.5 H Total Bilirubin 1.4 H Conjugated Bilirubin AST 38 H ALT 19 Alkaline Phosphatase 157 H Creatine Kinase Troponin I 1013 H* 2086 H* C-Reactive Protein Total Protein 5.9 L Albumin 1.7 L Urine Color Yellow Urine Clarity Clear Urine pH 5.5 Ur Specific [place] <= 1.005 Urine Protein Negative Urine Ketones Negative Urine Blood Moderate H Urine Nitrite Negative Urine Bilirubin Negative Urine Urobilinogen 0.2 Ur Leukocyte Esterase Negative Urine RBC 5-10 H Urine WBC 0-2 Ur Epithelial Cells Negative Urine Crystals Negative Urine Bacteria Negative Urine Mucus Negative Ur Culture Indicated? No Urine Glucose Negative 02/13/24 02/13/24 02/14/24 18:30 20:25 05:30 WBC 12.69 H RBC 3.09 L Hgb 8.8 L Hct 27.2 L MCV 88 MCH 28.5 MCHC 32.4 RDW 14.9 H Plt Count 277 MPV 9.4 Immature Gran % 0.7 Neutrophils % 95.2 Lymphocytes % 1.7 Monocytes % 2.0 Eosinophils % 0.2 Basophils % 0.2 Nucleated RBC % 0.0 Absolute Neutrophils 12.08 H Absolute Lymphocytes 0.22 L Absolute Monocytes 0.25 Absolute Eosinophils 0.03 Absolute Basophils 0.03 RBC Morphology ESR VBG Lactate Sodium 137 140 Potassium 3.5 3.8 Chloride 101 107 Carbon Dioxide 25.4 24.9 Anion Gap 10.6 8.1 BUN 12 8 Creatinine 1.1 0.8 Est GFR (CKD-EPI 2020) 75.90 100.06 Glucose 128 H 152 H Calcium 7.9 L 7.4 L Magnesium Total Bilirubin 0.6 Conjugated Bilirubin 0.4 H AST 43 H ALT 17 Alkaline Phosphatase 139 H Creatine Kinase Troponin I 2067 H* < 50 C-Reactive Protein Total Protein 5.3 L Albumin 1.4 L Urine Color Urine Clarity Urine pH Ur Specific [place] Urine Protein Urine Ketones Urine Blood Urine Nitrite Urine Bilirubin Urine Urobilinogen Ur Leukocyte Esterase Urine RBC Urine WBC Ur Epithelial Cells Urine Crystals Urine Bacteria Urine Mucus Ur Culture Indicated? Urine Glucose
--- NOTE | 2024-02-14 08:30 | DI.US_ITS ---
APPROVED REPORT EXAM: Comprehensive 2D, Doppler, and color-flow Echocardiogram Patient Location: In-Patient Room/Bed: 221 Laser Systems Engineer: Surinder Vaughan RDCS (AE) Indications: Elevated troponin, eval LV and RV function, RWMA Other Information Technically limited study due to body habitus, inability to position patient. Conclusion Normal LV chamber size. EF is 55%. Septal motion is consistent with an interventricular conduction delay Normal right ventricular size and function both atria are normal in size There are no structural or hemodynamically significant valvular abnormalities Estimated right ventricualr systolic pressure is 44 mmHg Wall motion Left Ventricle The left ventricle is grossly normal size. Unable to measure due to vertical orientation. The left ve ntricular systolic function is normal. The left ventricular ejection fraction is within the normal ra nge. Unable to assess LV wall thickness. Paradoxical septal motion consistent with conduction abnorma lity. There is no ventricular septal defect visualized. LVEF is 55%. Right Ventricle The right ventricle is normal size. Atria The left atrium size is normal. The right atrium size is normal. The interatrial septum is intact wit h no evidence for an atrial septal defect. Aortic Valve The aortic valve is normal in structure. Aortic valve is trileaflet. There is no aortic valvular sten osis. No aortic regurgitation is present. Mitral Valve The mitral valve is normal in structure. No evidence of mitral valve stenosis. Trace mitral regurgita tion. Tricuspid Valve The tricuspid valve is normal in structure. There is no tricuspid valve stenosis. Trace tricuspid reg urgitation. The RVSP is 43.9 mmHg. Pulmonic Valve The pulmonary valve is normal in structure. There is no pulmonic valvular stenosis. There is no pulmo vasile valvular regurgitation. Great Vessels The aortic root is normal in size. Ascending aorta is not well visualized. Aortic arch is not well vi sualized. The IVC collapses <50% with inspiration. Pericardium There is no pericardial effusion. 2D Dimensions Ao Root d 2.77 cm M: 3.1 - 3.7 M-Mode TAPSE 3.27 cm (M/F) >1.7 Auto EF LV EDV A4C 164.0 mL LV EDV A2C 119.8 mL LV EDV BP 139.8 mL LV ESV A4C 70.8 mL LV ESV A2C 53.9 mL LV ESV BP 62.0 mL LVEF(%) A4C 56.8 % LVEF(%) A2C 55.0 % LVEF(%) BP 55.6 % LV SV A4C 93.2 ml LV SV A2C 65.8 ml LV SV BP 77.7 ml LV CO A4C 6.8 L/min LV CO A2C 5.0 L/min LV CO BP 5.9 L/min HR A4C 73.33 BPM HR A2C 75.32 BPM LV EDV Index (BP) LA Volume LA Length A4C 4.7 cm LA Length A2C 5.6 cm LA Area A4C s 12.10 cm2 LA Area A2C s 13.83 cm2 LA Vol A4C A-L 26.56 mL LA Vol A2C A-L 29.20 mL LA Vol Biplane A-L 30.3 mL LA Vol/BSA A4C A-L LA Vol/BSA A2C A-L LA Vol/BSA BP A-L 16.4 mL/m2 LA Vol A4C MOD 25.0 mL LA Vol A2C MOD 28.3 mL LA Vol BP MOD 29.0 mL RA Volume RA Area A4C 11.7 cm2 RA ESV A4C (A-L) 24.7mL RA Vol/BSA A4C A-L RA Length A4C 4.7 cm RA ESV A4C (MOD) 23.4mL LV Diastology MV E' medial 0.116 (>0.07 m/s) MV E Vmax 0.73 (0.4-1.3 m/s) MV E/E' MED 6.28 (<14) MV A Vmax 0.50 (0.4-1.3 m/s) MV E' lateral 0.159 (>0.1 m/s) E/A Ratio 1.5 MV E/E' LAT 4.59 (<14) MV E' Average 0.138 m/s MV E/E'(average) 5.30 Aortic Valve AoV Vmax 1.59 m/s LVOT Vmax 0.94 m/s AoV Peak Grad 10.1 mmHg LVOT Peak Grad 3.5 mmHg AoV Area (Vmax) 1.48 cm2 LVOT VTI 0.178 m AoV VTI 0.296 m LVOT Mean Grad 1.8 mmHg AoV Mean Danyel. 1.10 m/s LVOT SV 44.40 mL AoV Mean Grad 5.6 mmHg LVOT Diam s 1.75 cm AoV Area (VTI) 1.50 cm2 Velocity Ratio 0.59 Mitral Valve MV DT 162 (160-240 msec) Pulmonary Valve PV Vmax 1.04 (0.5-1.5 m/s) RVOT Vmax 0.67 m/s PV Peak Grad 4.3 mmHg RVOT Peak Gr. 1.8 mmHg PV Mean Danyel 0.57 m/s RVOT VTI 0.105 m PV Mean Grad 1.9 mmHg RVOT Mean Gr. 1.0 mmHg Tricuspid Valve RA Pressure 15.00 mmHg TR Vmax 2.69 m/s TR Peak Grad 28.8 mmHg RVSP (TR) 43.9 mmHg
--- NOTE | 2024-02-14 08:30 | DI.RAD_ITS ---
Exam(s) XR PORTABLE CHEST AP EXAM: XR PORTABLE CHEST AP CLINICAL HISTORY: leukocytosis, sepsis. TECHNIQUE: 2D digital imaging was performed. COMPARISON: Prior x-ray 02/13/2024 FINDINGS: Single AP portable view. Heart size is upper normal. The mediastinum is not widened. Lungs are clear. No infiltrates nor obvious pleural effusions. Distal tip of the right jugular central line remains in good position in the superior vena cava. IMPRESSION: No acute pulmonary findings on this single AP portable view of the chest. Central line in satisfactory position DATA REPOSITORY: RADIATION DOSE DELIVERED:
--- NOTE | 2024-02-14 08:47 | PDOC.CMIN ---
Date of service: 02/14/24 Care Management Initial Assmt Initial Assessment REASON FOR HOSPITALIZATION:: Sepsis, hypotension, soft tissue infection. PREVIOUS FUNCTIONAL STATUS/SOCIAL/FAMILY SUPPORTS:: Ronaldo lives alone in [place]. CURRENT FUNCTIONAL STATUS:: Ronaldo was lying in bed when talking with CM. Ronaldo reports he would like to go home tomorrow. He describes his body is getting sore with not being able to move much and his blood pressure is low but is pretty close to baseline; will discuss this with MD. He reports he is connected with Dr. Loyola for Palliative Care and [facility] RN services twice a week. He reports he purchased his own 4 wheel walker and also has one for outside that will be being delivered tomorrow. Ronaldo reports he has 18mg baseline home med of oxycodone that is difficult to get because of the availability, but helps to manage his pain. He explained that if his leg were to get better he wouldn't need this medication as much. Ronaldo describes at an appointment last week he was told he has two years left to live; it could be shorter or longer it really is not known. CM following. ADVANCE DIRECTIVES:: None on file Has patient been provided with info about the portal/API?: Yes Did the patient sign up for the portal?: No CODE STATUS:: Full Code INSURANCE COVERAGE / FINANCIAL ISSUES:: Medicaid CURRENT HOME/COMMUNITY SERVICES/EQUIPMENT:: [facility] RN for Wound care. Followed by [facility] PRIMARY CARE PHYSICIAN:: Sha Ramos POTENTIAL DISCHARGE NEEDS:: Resumption of [facility] RN PATIENT/FAMILY EDUCATION NEEDS:: Review discharge instructions, limitations, medications and plan to follow up with community providers. Discuss ask me three and goals of self care. ANTICIPATED BARRIERS TO DISCHARGE:: None identified TRANSPORTATION:: Via private vehicle PLAN:: Ronaldo will discharge home when medically cleared. He will transport via private vehicle with friend. He will follow up with his PCP and discharge plan of care. CM following. 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) Pelvic abscess in male (Acute) High risk medication use (Acute) Abnormal weight loss (Acute) Skin ulcer of perineum with fat layer exposed (Acute) History of alcohol abuse (Acute) Advanced care planning/counseling discussion (Acute) Palliative care encounter (Acute) Cancer related pain (Acute) Controlled substance agreement and informed consent obtained 12/14/2023 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) Housing insecurity (Acute) Food insecurity (Acute) 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 COPD (chronic obstructive pulmonary disease) (Chronic) Hypoalbuminemia due to protein-calorie malnutrition (Acute) Microcytic anemia (Acute) Smoker (Acute) Medical History ETOH abuse Resolved February 2023 Surgical History Status post radiation therapy Family History Other Cancer Social History Smoking/Tobacco Use Status: Current every day Tobacco Type: cigarettes Smoking risk assessment performed?: Yes Alcohol Intake: former Drug use: Rarely Substance use type: marijuana Housing: apartment Do you feel safe at home: Yes Do you feel safe in your relationship?: Yes SDOH(Care Management) Screening Will the Patient Participate in the Screening?: Unable to obtain Health Related Social Needs Health related social needs details: patient unable to participate at this time in page 2 assessment
--- NOTE | 2024-02-14 09:02 | W.PM.PROGNOT ---
Date of Service Date of service: 02/14/24 Time of Service: 09:02 Assessment and Plan Assessment and plan (1) Septic shock: Status: Acute Assessment and plan: 63 yo M PMH remarkable for HTN, COPD, heavy smoker, diagnosis of extensive anal squamous cell carcinoma 02/2023, he is s/p chemo-radio therapy with Modified Esau protocol with an initial excellent response, leaving a moderately large tissue defect in the perineum. He is s/p stool-diversion with a functioning colostomy. s/p emergent incision and debridement right posterior thigh abscess measured 33 x 5.5 x 6 cm in dimension on 02/13/2024 admitted to ICU after surgical management Sepsis with shock: WBC > 09174 end-organ dysfunction as evidenced by hypotension, requirement for continued vasoactive support known source for infection Severe protein calorie malnutrition: -evidenced by albumin 1.4 -weight loss of 25 lbs, >10% body weight in <6 months -Advance to a regular diet today -Protein supplements encouraged Hypotension: -maintenance fluids -continue pressor support, -wean to MAP 60-65 mmHg -Maintain Leigh catheter until no longer requiring vasoactive support Elevated troponin: -resolved -serial elevation 1000 > 2000 > 2000 on 02/13/2024 -now <50 ng/dl this AM Concern for cardiac ischemia: -appreciate medicine and cardiology evaluations -likely demand ischemia, type II MS -will plan for 81 mg aspirin daily -echo for LV function (2) Soft tissue infection: Status: Acute Assessment and plan: Infected soft tissue wound -BID dressing changes -may require jail for ongoing wound care -patient is going to be unable to perform necessary wound care on his own -dressing changes today, plan for reevaluation in the OR, possible repeat debridement, and dressing changes tomorrow 02/15/2024 -Will require additional informed consent document to be signed -Tentative plan to open the abscess cavity further, as he is not able to tolerate packing of the wound with Dakin's moistened gauze, it was extremely painful for him to have the gauze is removed and replaced despite administration of IV narcotics before dressing changes was performed Exam Narrative Exam Narrative: GEN: no acute distress, resting in ICU bed Psych: awake, follows commands, is requesting discharge within 24 hrs, overal disagreeable demeanor Heart: HR rrr, blood pressure hypotensive, continues requiring vasoactive infusions for pressure support Abd: colostomy status, benign abdomen otherwise : Clear yellow urine Leigh catheter in place Perineum: s/p excisional biospies, multiple perineal nodules, concerning for persistent/recurrent squamous cell carcinoma Right posterior thigh: purulent discharge from dressing, ABD bad with foul-smelling odor Neuro: following commands, good-pediatric nurse practitioner strength bilateral, quite-sleepy Objective Last Vital Signs Temp 98.2 F 02/14/24 05:16 Pulse 79 02/14/24 05:16 Resp 17 02/14/24 06:30 BP 118/59 L 02/13/24 15:37 Pulse Ox 98 02/14/24 06:30 Laboratory Results - last 24 hr 02/13/24 02/13/24 02/13/24 09:20 09:20 12:30 WBC 14.83 H RBC 3.02 L Hgb 8.9 L Hct 26.8 L MCV 89 MCH 29.5 MCHC 33.2 RDW 14.6 H Plt Count 193 MPV 8.5 Immature Gran % 0.9 Neutrophils % 94.3 Lymphocytes % 1.1 Monocytes % 3.5 Eosinophils % 0.0 Basophils % 0.2 Nucleated RBC % 0.0 Absolute Neutrophils 13.98 H Absolute Lymphocytes 0.16 L Absolute Monocytes 0.52 Absolute Eosinophils 0.00 Absolute Basophils 0.03 RBC Morphology ESR 70 H VBG Lactate 2.6 H* 2.6 H* Sodium 131 L Potassium 3.2 L Chloride 95 L Carbon Dioxide 28.5 Anion Gap 7.5 BUN 11 Creatinine 1.0 Est GFR (CKD-EPI 2020) 85.10 Glucose 100 Calcium 8.0 L Magnesium 1.6 L Total Bilirubin 1.1 H Conjugated Bilirubin AST 33 ALT 19 Alkaline Phosphatase 163 H Creatine Kinase 34 L Cancelled Troponin I C-Reactive Protein 15.67 H Total Protein 5.9 L Albumin 1.8 L Urine Color Urine Clarity Urine pH Ur Specific [place] Urine Protein Urine Ketones Urine Blood Urine Nitrite Urine Bilirubin Urine Urobilinogen Ur Leukocyte Esterase Urine RBC Urine WBC Ur Epithelial Cells Urine Crystals Urine Bacteria Urine Mucus Ur Culture Indicated? Urine Glucose 02/13/24 02/13/24 02/13/24 15:30 16:50 18:20 WBC 29.17 H* RBC 3.48 L Hgb 10.2 L Hct 30.9 L MCV 89 MCH 29.3 MCHC 33.0 RDW 14.8 H Plt Count 372 D MPV 8.5 Immature Gran % 0.9 Neutrophils % 95.0 Lymphocytes % 1.0 Monocytes % 2.7 Eosinophils % 0.0 Basophils % 0.4 Nucleated RBC % 0.0 Absolute Neutrophils 27.71 H Absolute Lymphocytes 0.29 L Absolute Monocytes 0.79 Absolute Eosinophils 0.00 Absolute Basophils 0.12 RBC Morphology Normal ESR VBG Lactate Sodium 136 Potassium 3.6 Chloride 101 Carbon Dioxide 27.8 Anion Gap 7.2 BUN 11 Creatinine 1.0 Est GFR (CKD-EPI 2020) 85.10 Glucose 144 H Calcium 8.1 L Magnesium 2.5 H Total Bilirubin 1.4 H Conjugated Bilirubin AST 38 H ALT 19 Alkaline Phosphatase 157 H Creatine Kinase Troponin I 1013 H* 2086 H* C-Reactive Protein Total Protein 5.9 L Albumin 1.7 L Urine Color Yellow Urine Clarity Clear Urine pH 5.5 Ur Specific [place] <= 1.005 Urine Protein Negative Urine Ketones Negative Urine Blood Moderate H Urine Nitrite Negative Urine Bilirubin Negative Urine Urobilinogen 0.2 Ur Leukocyte Esterase Negative Urine RBC 5-10 H Urine WBC 0-2 Ur Epithelial Cells Negative Urine Crystals Negative Urine Bacteria Negative Urine Mucus Negative Ur Culture Indicated? No Urine Glucose Negative 02/13/24 02/13/24 02/14/24 18:30 20:25 05:30 WBC 12.69 H RBC 3.09 L Hgb 8.8 L Hct 27.2 L MCV 88 MCH 28.5 MCHC 32.4 RDW 14.9 H Plt Count 277 MPV 9.4 Immature Gran % 0.7 Neutrophils % 95.2 Lymphocytes % 1.7 Monocytes % 2.0 Eosinophils % 0.2 Basophils % 0.2 Nucleated RBC % 0.0 Absolute Neutrophils 12.08 H Absolute Lymphocytes 0.22 L Absolute Monocytes 0.25 Absolute Eosinophils 0.03 Absolute Basophils 0.03 RBC Morphology ESR VBG Lactate Sodium 137 140 Potassium 3.5 3.8 Chloride 101 107 Carbon Dioxide 25.4 24.9 Anion Gap 10.6 8.1 BUN 12 8 Creatinine 1.1 0.8 Est GFR (CKD-EPI 2020) 75.90 100.06 Glucose 128 H 152 H Calcium 7.9 L 7.4 L Magnesium Total Bilirubin 0.6 Conjugated Bilirubin 0.4 H AST 43 H ALT 17 Alkaline Phosphatase 139 H Creatine Kinase Troponin I 2068 H* < 50 C-Reactive Protein Total Protein 5.3 L Albumin 1.4 L Urine Color Urine Clarity Urine pH Ur Specific [place] Urine Protein Urine Ketones Urine Blood Urine Nitrite Urine Bilirubin Urine Urobilinogen Ur Leukocyte Esterase Urine RBC Urine WBC Ur Epithelial Cells Urine Crystals Urine Bacteria Urine Mucus Ur Culture Indicated? Urine Glucose Time Spent with Patient Time Spent with Patient: <25 minutes Time was spent: preparing to see the patient(eg.review tests), obtaining and/or reviewing separately otained hiistory, ordering medications,tests, procedures, referring, communicating with other health healthcare architect, indepentently interpreting results, counseling the patient and other (Physician dressing changes)
--- NOTE | 2024-02-14 13:35 | PHA.REVIEW2 ---
Pharmacy Admission Review Admission Clinical Review Admission Pharmacy Review: Elevated troponin (Acute) Sepsis associated hypotension (Acute) Soft tissue infection (Acute) Hypomagnesemia (Acute) Hypokalemia (Acute) Sepsis (Acute) Septic shock (Acute) Abscess (Acute) No Known Allergies Allergy (Unverified 02/13/24 10:32) Resuscitation Status Full Code Height 6 ft 4 in Weight 64 kg Pharmacy Admission Review Renal Dosing Renal Dosing: BUN 8 mg/dL (7-18) 02/14/24 05:30 Creatinine 0.8 mg/dL (0.70-1.30) 02/14/24 05:30 Medications needing adjustments: Reviewed (CrCl 69 mL/min) List of meds needing interventions: Current medications are okay Anticoagulation Anticoagulation: Hgb 8.8 g/dL (13.5-17.5) L 02/14/24 05:30 Hct 27.2 % (40.0-50.0) L 02/14/24 05:30 Plt Count 277 10^3/uL (130-400) 02/14/24 05:30 Creatinine 0.8 mg/dL (0.70-1.30) 02/14/24 05:30 DVT Prophylaxis: Reviewed Medications: Heparin (q8h) Opiate Usage Evaluate Pain Scale/Pains Meds: Reviewed (PRN oxycodone and ОЛЬГА Xtampza) Scheduled Bowel Reg ordered if on Opiates?: Yes (Miralax and docusate) Relevant Labs Relevant Labs: ESR 70 mm/hr (0-20) H 02/13/24 09:20 Sodium 140 mmol/L (136-145) 02/14/24 05:30 Potassium 3.8 mmol/L (3.5-5.1) 02/14/24 05:30 Chloride 107 mmol/L (98-107) 02/14/24 05:30 Magnesium 2.5 mg/dL (1.8-2.4) H 02/13/24 15:30 C-Reactive Protein 15.67 mg/dL (<or=0.5) H 02/13/24 09:20 Electrolytes, C-Reactive P, ESR: Reviewed (Hgb decreased from 10.2 to 8.8, AST 43) Cardiac Review Cardiac Review: Troponin I < 50 ng/L (< or =60) 02/14/24 05:30 BP, HR, EF%: Reviewed (HR WNL, no BP charted for today. Respiratory rate 11. Troponin was 8 yesterday at 2024, repeat today was WNL) QTc Review QTc: Reviewed (455 from 02/14/24) IV to PO Switch IV Medications: Reviewed (Clindamycin, gentamicin, metronidazole and Levophed) Home Meds Home Med List reviewed: Reviewed Relevent Home Meds Not ordered & why?: Lidocaine cream (PRN) and SSD1% cream Current Meds Current Medication Order Review: Intervened Comments: Patients home med Xtampza was verified as non-formulary medication. Changed order to patients own, verified medication and sent back up to floor. Levophed drip currently at 12.5mL/hr, last increased this morning at 0657. Pharmacy Antibiotic Review Pharmacy Antibiotic Activity: C/S review and Reviewed, no change Comments: Patient continues on clindamycin, metronidazole and gentamicin, day 2. Patient was added to [facility] for gentamicin monitoring and ordered level for today at 1000 (level should be ordered 6-14 hours after dose is given). WBC has decreased from 29.17 to 12.69. Initial blood culture growing gram positive cocci, repeat pending. Culture from thigh wound also pending.
[2024-02-14] MEDS: MORPHine 4 MG/ML SYR IVP (14:39)
[2024-02-14] MEDS: Norepinephrine in D5W 8 MG/250 ML BAG 11 MG IV (15:06)
[2024-02-14] MEDS: CLINDAMYCIN 900 MG/50 ML BAG 100 MG IVPB (16:18)
[2024-02-15] VITALS (43 sets, daily range): PULSE 54–110; RESP 10–27; TEMP 36.7–36.9; O2SAT 90–97; BMI 17.2
[2024-02-15] MEDS: metroNIDAZOLE 500 MG/100 ML BAG 100 MG IVPB ×3 (02:05→18:28)
[2024-02-15] MEDS: oxyCODONE 15 MG TAB PO ×4 (04:30→22:14)
[2024-02-15] MEDS: Normal Saline Flush 10 ML SYR IVP (04:31)
--- NOTE | 2024-02-15 05:22 | NUR.NOTE ---
patient has refused turning or bed linen change this shiftNursing Note:
[2024-02-15 05:39] LABS: Absolute Eosinophil Count 0.16 10^3/uL (0.0-0.7); Absolute Lymphocyte Count 0.26 10^3/uL (1.2-3.4); Absolute Monocyte Count 0.23 10^3/uL (0.1-0.8); Basophils % 0.3; Eosinophils % 1.4; HCT 26.9 % (40.0-50.0); Immature Grans % 0.9; Lymphocytes % 2.2; MCH 29.1 pg (27.0-33.0); MCHC 33.5 % (32.0-36.0); MCV 87 fL (80-95); MPV 9.3 fL (8.0-11.0); Neutrophils % 93.2; Platelet Count 256 10^3/uL (130-400); RBC 3.09 10^6/uL (4.36-5.78); WBC 11.74 10^3/uL (4.4-10.8)
[2024-02-15 05:49] LABS: Absolute Basophil Count 0.04 10^3/uL (0.0-0.2); Absolute Neutrophil Count 10.94 10^3/uL (1.2-6.7)
[2024-02-15 06:00] LABS: Anion Gap 5.5 mmol/L (3-11); BUN 6 mg/dL (7-18); CO2 30.5 mmol/L (21.0-32.0); CREATININE 0.7 mg/dL (0.70-1.30); Calcium 7.6 mg/dL (8.5-10.1); Chloride 108 mmol/L (98-107); Estimated GFR 104.18 (mL/min/1.73m2); Glucose 109 mg/dL (74-106); Potassium 3.1 mmol/L (3.5-5.1); Sodium 144 mmol/L (136-145)
[2024-02-15] MEDS: Heparin 5,000 UNITS/ML VIAL 5000 UNITS SC ×3 (06:21→22:13)
[2024-02-15] MEDS: Norepinephrine in D5W 8 MG/250 ML BAG 9 MG IV (07:11)
[2024-02-15] MEDS: Norepinephrine in D5W 8 MG/250 ML BAG 13.125 MG IV (07:15)
[2024-02-15] MEDS: Nicotine 21 MG/24 HR PATCH TD (08:05)
[2024-02-15] MEDS: CLINDAMYCIN 900 MG/50 ML BAG 50 MG IVPB (08:18)
[2024-02-15] MEDS: POTASSIUM CHLORIDE 20 MEQ/100 ML BAG 50 MEQ IV ×2 (09:51→14:11)
[2024-02-15] MEDS: Normal Saline 1,000 ML 100 ML IV ×2 (10:48→22:13)
--- NOTE | 2024-02-15 10:57 | ANES.PREOP_ITS ---
General Info Date of Service Date Performed: 02/15/24 Height: 6 ft 4 in Weight: 64 kg Body Mass Index (BMI): 17.2 Surgical Procedure: Operation Date: 02/13/24 12:30 Proposed Procedure Side Surgeon p Debridement Foot/Leg Right Gatito Jose MD Actual Procedure Side Surgeon p Right Posterior Thigh Abscess Incision,Drainage, + Debridement w/Drain Placement + Drain Removal, Perineal Exam Under Anesthesia w/Perineal Biopsy Right Gatito Jose MD Pre-Op Diagnosis Post-Op Diagnosis Posterior gluteal soft tissue infection with extension into the right posterior thigh Perineal squamous cell carcinoma Posterior gluteal soft tissue infection with extension into the right posterior thigh Perineal squamous cell carcinoma Operation Date: 02/15/24 12:10 Proposed Procedure Side Surgeon p I&D of Thigh Right Gatito Jose MD Meds Allergies and Home Medications Allergies Allergy/AdvReac Type Severity Reaction Status Date / Time No Known Allergies Allergy Unverified 02/13/24 10:32 Home Medication Medication Instructions Recorded lidocaine HCl 4 % topical cream 1 applic topical Q4H PRN PRN 12/03/23 silver sulfadiazine 1 % topical 1 applic topical QID 12/03/23 cream oxycodone 15 mg tablet 15 - 30 mg (1 - 2 x 15 mg) PO Q4H 12/14/23 PRN pain #240 tabs levofloxacin 750 mg tablet 750 mg PO DAILY 02/13/24 metronidazole 500 mg tablet 500 mg PO TID 02/13/24 oxycodone myristate 18 mg capsule 18 mg PO BID #60 caps 02/15/24 sprinkle extended release 12hr(DON'T CRUSH) (Xtampza ER) Current Visit Medications: Current Medications Generic Name Dose Route Start Last Admin Trade Name Freq PRN Reason Stop Dose Admin Acetaminophen 975 mg 02/13/24 20:00 02/15/24 08:48 Acetaminophen 650 Mg Supp VT Not Given TID ОЛЬГА Docusate Sodium 100 mg 02/13/24 20:00 02/15/24 08:48 Docusate Sodium 100 Mg Cap PO Not Given TID ОЛЬГА Heparin Sodium (Porcine) 5,000 units 02/14/24 22:00 02/15/24 06:21 Heparin 5,000 Units/Ml Vial SC 5,000 units Q8H ОЛЬГА Administration Norepinephrine Bitartrate 8 mg in 250 mls @ 0 mls/hr 02/13/24 09:15 02/15/24 07:11 IV 9 mls/hr INFUSION ОЛЬГА 9 mls/hr Administration Protocol As Directed Sodium Chloride 1,000 mls @ 100 mls/hr 02/13/24 15:40 02/15/24 10:48 Saline 1000ml Bag IV 100 mls/hr INFUSION ОЛЬГА Administration Metronidazole 500 mg in 100 mls @ 100 mls/hr 02/13/24 18:00 02/15/24 09:52 Flagyl IVPB 100 mls/hr Q8H ОЛЬГА Administration Clindamycin Phosphate/Dextrose 900 mg in 50 mls @ 50 mls/hr 02/13/24 16:00 02/15/24 10:33 Cleocin In D5w IVPB Infused Q8H ОЛЬГА Infusion Gentamicin Sulfate 450 mg/ 111.25 mls @ 111.25 mls/hr 02/14/24 00:00 02/15/24 00:20 Sodium Chloride IVPB Infused Q24H ОЛЬГА Infusion Sodium Chloride 500 mls @ 0 mls/hr 02/14/24 07:30 Saline 500ml Bag IV DIRECTED PRN As Directed Potassium Chloride 20 meq in 100 mls @ 50 mls/hr 02/15/24 10:00 02/15/24 09:51 IV 02/15/24 17:59 50 mls/hr Q2H ОЛЬГА Administration IV Miscellaneous Supplies 1 each 02/14/24 07:30 Iv Access IV DIRECTED ОЛЬГА Miscellaneous 1 each 02/14/24 01:02 02/14/24 01:04 Patch Removal TD 1 each PRN PRN Administration Nicotine 21 mg 02/13/24 08:30 02/15/24 08:05 Nicotine 21 Mg/24 Hr Patch TD 21 mg DAILY ОЛЬГА Administration Oxycodone HCl 15 mg 02/13/24 15:40 02/15/24 08:06 Oxycodone 15 Mg Tab PO 15 mg Q4H PRN PRN Administration pain Patient's Own 1 each 02/14/24 08:30 02/15/24 08:06 Xtampza Er 18 Mg PO 1 each Capsule BID ОЛЬГА Administration Polyethylene Glycol 17 gm 02/13/24 20:00 02/14/24 18:51 Polyethylene Glycol 3350 17 Gm Packet PO Not Given HS ОЛЬГА Sodium Chloride 0 ml 02/14/24 07:30 04/09/24 04:31 Normal Saline Flush 10 Ml Syr IVP 20 ml PRN PRN Administration Sodium Hypochlorite 473 ml 02/14/24 13:00 Dakin's Solution 0.5% 473 Ml Btl TP DIRECTED [facility] Active Problems Active Problems: Problem Status Onset Code Elevated troponin R79.89 Sepsis associated hypotension A41.9, I95.9 Soft tissue infection L08.9 Hypomagnesemia E83.42 Hypokalemia E87.6 Sepsis A41.9 Septic shock A41.9, R65.21 Abscess L02.91 Pelvic abscess in male K65.[address] Z93.3 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 Pelvic abscess in male K65.1 High risk medication use Z79.899 Abnormal weight loss R63.4 Skin ulcer of perineum with fat layer exposed L98.492 History of alcohol abuse F10.11 Advanced care planning/counseling discussion Z71.89 Palliative care encounter Z51.5 Cancer related pain G89.3 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 Housing insecurity Z59.819 Food insecurity Z59.41 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 COPD (chronic obstructive pulmonary disease) J44.9 Hypoalbuminemia due to protein-calorie malnutrition E88.09, E46 Microcytic anemia D50.9 Smoker F17.200 Medical History Medical History ETOH abuse Resolved February 2023 Surgical History Surgical History Status post radiation therapy Tobacco Smoking/Tobacco Use Status: Current every day Tobacco Type: cigarettes Smoking cigarettes per day: 20 Alcohol Alcohol Intake: former Substance Use Substance use: Rarely Substance use type: marijuana Vital Signs and Lab Results Vital Signs Most Recent Vital Signs in EMR: Most Recent Vital Signs Temp Pulse Resp BP Pulse Ox 36.9 C 68 16 120/49 L 93 02/15/24 04:32 02/14/24 23:40 02/15/24 01:00 02/14/24 23:40 02/15/24 01:00 Lab Results 02/15/24 05:10 02/15/24 05:10 Blood Type / Crossmatch: 2 No Data to Display Complete Blood Count: 2 White Blood Count 11.74 10^3/uL (4.4-10.8) H 02/15/24 05:10 Red Blood Count 3.09 10^6/uL (4.36-5.78) L 02/15/24 05:10 Hemoglobin 9.0 g/dL (13.5-17.5) L 02/15/24 05:10 Hematocrit 26.9 % (40.0-50.0) L 02/15/24 05:10 Platelet Count 256 10^3/uL (130-400) 02/15/24 05:10 Venous Blood Lactate 2.6 mmol/L (0.6-1.4) H* 02/13/24 12:30 Complete Metabolic Panel: 2 Sodium 144 mmol/L (136-145) 02/15/24 05:10 Potassium 3.1 mmol/L (3.5-5.1) L 02/15/24 05:10 Chloride 108 mmol/L (98-107) H 02/15/24 05:10 Carbon Dioxide 30.5 mmol/L (21.0-32.0) 02/15/24 05:10 BUN 6 mg/dL (7-18) L 02/15/24 05:10 Creatinine 0.7 mg/dL (0.70-1.30) 02/15/24 05:10 Est GFR (CKD-EPI 2020) 104.18 (mL/min/1.73m2) 02/15/24 05:10 Magnesium 2.5 mg/dL (1.8-2.4) H 02/13/24 15:30 Calcium 7.6 mg/dL (8.5-10.1) L 02/15/24 05:10 Albumin 1.4 g/dL (3.4-5.0) L 02/14/24 05:30 Glucose 109 mg/dL (74-106) H 02/15/24 05:10 C-Reactive Protein 15.67 mg/dL (<or=0.5) H 02/13/24 09:20 Liver Function Panel: 2 Alanine Aminotransferase (ALT/SGPT) 17 U/L (16-63) 02/14/24 05: 30 Aspartate Amino Transf (AST/SGOT) 43 U/L (15-37) H 02/14/24 05: 30 Coagulation Panel: 2 INR International Normalized Ratio 1.2 (0.9-1.1) H 01/24/24 17 :51 Prothrombin Time 11.5 sec (9.1-11.1) H 01/24/24 17:51 Cardiac Panel: 2 Troponin I < 50 ng/L (< or =60) 02/14/24 Creatine Kinase 34 U/L (39-308) L 02/13/24 Arterial Blood Gas: 2 No Data to Display Venous Blood Gas: 2 No Data to Display Pancreas Panel: 2 No Data to Display Thyroid Panel: 2 No Data to Display Infectious Disease: 2 No Data to Display Blood Cultures: 2 No Data to Display Toxicology Panel: 2 No Data to Display Imaging and Studies Imaging and Studies Study information below may be from another EMR and interpreted by another provider. Please see original notes in EMR for more complete details. EKG Summary: 03/01: sinus. Echocardiogram Summary: 03/01: LVEF 55%, no sig valve issues. RVSP 44 mmhg. Pulmonary Function Summary: 03/30: moderate airflow obstruction with bronchodilator response. likely COPD. Anesthesia Assessment and Plan Anesthesia History Personal History: No History of Anesthesia Complications and Unknown Anesthesia History Family History: Family History Unknown Exercise Tolerance Exercise Tolerance: Metabolic Equivalents>4 Cardiac & Pulmonary Exam Cardiac Exam: Normal S1/S2 Heart Sounds Pulmonary Exam: Clear Bilateral Breath Sounds Implantable Cardiac Device Does patient have a Pacemaker or an ICD?: No Airway Exam Known Difficult Airway: No Mallampati Class: 2 Mouth Opening: Normal (> 3cm) Thyromental Distance: Greater than 3 cm Neck Range of Motion: Full ROM Neck Circumference: Normal Teeth Condition: Generalized Poor Dentition ASA Classification ASA Score: ASA 3 Emergency Case?: No NPO Status NPO Status: NPO Clears >2 hours, Solids >8 hours Anesthesia Plan Resuscitation Status: Full Code Anesthesia Technique: General Anesthesia Airway Planned: Endotracheal Tube Monitors Used: Standard Monitors Preoperative Comments:: 63 yo male with history of anal cancer admitted for abscess. Currently in the ICU on norepinephrine. Brought to the OR for I/D, and a central line and art line placed. Did have a trop increase which is believed to be demand ischemia. Sig PMHx: HTN, COPD, anal cancer (chemo, radiation, colostomy). smoker. Previous Anes: - I/D thigh, glide 4 grade 1. norepi. - colostomy, mac 3 grade 2 a.
[2024-02-15] MEDS: Lactated Ringers 1,000 ML 30 ML IV (12:04)
[2024-02-15] MEDS: Gentamicin 80 MG/2 ML VIAL 900 MG IV (12:44)
--- NOTE | 2024-02-15 13:02 | ROE_ITS ---
Date of service: 02/15/24 Time of Service: 13:02 Operative Note Operative Note PRE-OP DIAGNOSIS: Soft tissue infection, hypotension, septic shock Same PROCEDURE: 1. Washout of infected soft tissue abscess, deep through the level of the skin, through the subcutaneous layer, and into and through the muscle layer. Irrigation and excisional debridement performed of the abscess cavity. Abscess cavity measured 33.5 x 5.5 x 7.5 cm. The abscess cavity is 6 cm deep to the level of the skin. Wound packing into posterior thigh abscess Kerlix gauze sponges x2 ANESTHESIA TYPE: General LMA/ETT Refer to Anesthesia Record ESTIMATED BLOOD LOSS: 50 PATHOLOGY: other (1. perineal nodules) Patient was transported to: PACU Patient's condition: critical Implants: 1. Wound packing into posterior thigh abscess Kerlix gauze sponges x2 2. Wound packing into the right hip overlying the greater trochanter Indications: Soft tissue infection, sepsis, hypotensive shock, requirement for vasoactive infusion Findings: 1. Open posterior thigh wounds, [place] dressings in place, packed with Kerlix gauze 2. Removal with purulent discharge, reaccumulation of infected fluid Procedure Description: Patient was transferred to the operating room, timeout performed confirming name , date of , medical record number, all staff present agreed upon proposed procedure, return to the OR for washout, debridement of soft tissue infection right posterior thigh, return to the OR for dressing changes, reevaluation of the wound for possible debridement. All staff present agreed. Patient was transferred to the operating table in supine position, general tracheal anesthesia was induced without complications, he was then positioned in a left lateral corkscrew position, the right hip and the right knee were flexed, bony prominences padded with pillows. The wound was prepped with Betadine paint and scrub, purulent packing was removed from the wounds. Abscess cavity measured 33.5 x 5.5 x 7.5 cm. The abscess cavity is 6 cm deep to the level of the skin. A Pulsavac was used with a dilute gentamicin vancomycin solution, irrigating the wound with 3 L of dilute antibiotic solution. There is additional fibrinous exudate within the wound cavity, this was excised sharply using the electrocautery, and Shila clamp. A lap sponge with a Emili clamp was used to bluntly debride and debulk the fibrinous exudate from the wound. The wound was then examined for hemostasis, there was no evidence of active bleeding. The skin, soft tissue, and muscle appeared viable as evidenced by petechial bleeding. At this time Dakin's moistened gauze sponges were packed into the posterior thigh wound. The wound over the right greater trochanter, was examined, debrided bluntly using a lap sponge. Fibropurulent discharge was debulked from the opening. This is the previous drain site location from interventional drain placed at [facility]. At initial trip to the operating room on 02/13/2024, the wound was draining purulent discharge, and unroofing of the percutaneous drain site was required to allow for drainage of the purulent discharge. Patient tolerated the procedure well, he will be transferred back to the intensive care unit. Recommendations: Ongoing wound care, as the patient is unlikely to tolerate dressing changes at the bedside, he may require return to the OR for dressing changes until the wound is clean, at which time the gauze packing may be reduced in size, and minimized to simple with gauze packing. Resume regular diet Protein supplementation
[2024-02-15] MEDS: HYDROmorphone 2 MG/ML SYR 1 MG IVP (13:33)
--- NOTE | 2024-02-15 13:43 | W.ANESPOSTOP ---
Postoperative Evaluation Date, Time and Location Date Performed: 02/15/24 Time Performed: 13:30 Patient Location: Intensive Care Unit Vital Signs Most Recent Imported Vital Signs: Most Recent Vital Signs Temp Pulse Resp BP Pulse Ox 36.9 C 68 16 120/49 L 93 02/15/24 04:32 02/14/24 23:40 02/15/24 01:00 02/14/24 23:40 02/15/24 01:00 Most Recent Vital Signs Temp Pulse Resp BP Pulse Ox 36.6 C 67 23 118/59 L 96 02/13/24 16:54 02/13/24 15:37 02/13/24 17:10 02/13/24 15:37 02/13/24 17:10 Pain Score Most Recent Pain Score: Most Recent Pain Score Pain Level 5 02/15/24 09:00 Assessment Mental Status: Awake (Alert & Oriented to Patient Baseline) Airway and Respiratory Function: Patent airway with normal (patient baseline) respiratory exam Cardiovascular Function: Hemodynamically Stable Hydration Status: Adequately Hydrated Nausea & Vomiting: No Nausea or Vomiting Pain: Pain is Moderate or Severe Postoperative Pain Management: Pain being addressed with medication Peripheral Nerve Block: Patient did not receive a nerve block
--- NOTE | 2024-02-15 14:59 | CMPROGNOTE_ITS ---
Date of service: 02/15/24 Care Management Progress Note Progress Note Text Progress Note Text: S/O: Ronaldo was lying in bed when talking with CM. He reported he had just returned from the OR and was experiencing alot of pain. He reported anticipating, new wound care needs of daily dressing changes. CM will support coordination coordinate care with RN as Ronaldo shared there are very few people he will allow to assist him and would like it to be an [facility] staff member here that does this daily when he is discharged; it will likely be HH as this is not possible at [facility]. CM following. A: Ronaldo is a 63 year old male admitted to [facility] 02/13/24 for sepsis, hypotention, soft tissue infection. P: Ronaldo will discharge home when medically ready, per MD. He will transport via private vehicle with a friend. He will follow up with his PCP and discharge plan of care instructions. He will have a resumption of HH RN services and new wound care orders with [facility]. SDOH(Care Management) Screening Will the Patient Participate in the Screening?: Unable to obtain Health Related Social Needs Health related social needs details: patient unable to participate at this time in page 2 assessment Anticipated HH Services Anticipated HH Services at Discharge [facility] Resumption.
[2024-02-15] MEDS: Acetaminophen 325 MG TAB 975 MG PO ×2 (15:01→20:02)
[2024-02-15] MEDS: POTASSIUM CHLORIDE 20 MEQ/100 ML BAG 50 MEQ IVINF ×2 (16:11→18:27)
--- NOTE | 2024-02-15 16:57 | PCNE_ITS ---
Date of service: 02/15/24 Time of Service: 16:58 History of Present Illness Narrative: Ronaldo Esqueda is a 63-year-old gentleman who lives in [facility]. 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 I first met with him December 2023. He was initially referred to palliative care clinic by his oncologist Dr. Everett for help with pain management as well as help with goals of care and additional support. Additionally he had been dealing with large chronically draining wound which causes pain and weakness, and has rendered him unable to work. Other issues include economic insecurity, weight loss, adjustment reaction. Mr. Esqueda has a history of COPD, squamous cell carcinoma of the anus status post colostomy 2022, history distant EtOH abuse. Squamous cell carcinoma anus: locally advanced squamous cell carcinoma of the anus (T3 N1c) Diagnosed in February 2023, after presenting with a large painful, infected anal mass. Because of obstruction from mass, he underwent diverting colostomy March 2023. Workup revealed multiple metastasis to pelvic and inguinal nodes. Initial treatment was course of radiation therapy (March through April 2023), concomitant MMC and capecitabine. Most recent PET scan early November 2023 showed probable resolution of the mass with probable post-radiation inflammatory changes. Previously noted ron metastases and concerning bone lesions had all resolved. Oncology notes state that he has significant perineal wound with presumed residual disease His wound was being followed by Dr. Gambino at [facility] colorectal surgery. Ronaldo was admitted to [facility] a few weeks ago with enlarging abscess and cellulitis. Underwent drainage. Went home. Readmitted February 12 with sepsis due to reaccumulation of abscess. + BLood cx. Was taken to the OR. Abscess drained. Also surgeon suspected recurrence of tumor due to extent of nodules. He was taken back to OR today to have wound cleaned again. Pathology sample pending to confirm recurrence. We have been asked to see him to help with pain management as well as supportive care and to help with GOC, given probable recurrence. Pain: Over last 24 hours, patient has continued to receive his usual dose of Xtaampa 18mg Q12h and four doses of oxycodone 15mg, plus 1 mg IV hydrocodone (approx 160 mme/24 hours) Patient had been reporting taking at home prior to worsening of abcess: MME 235/day. In our office visits, he encouraged him to increase his dose of long-acting oxycodone/Xtampza in order to give a more even level of pain control and this would likely lead to decreased need for short acting oxycodone. He had been very resistant to this and seem to feel that this represented you are cutting me down. What is important to note is that we have seen no escalation in his oxycodone dose over the last 6 months or so. Hospital has been unable to get his Xtampza 18 mg (I believe they only have OxyContin) and therefore he is using his home stock. We received phone call requesting that we send a refill to his pharmacy and this was sent today 02/15/2024 (#60 on Xtampza 18 mg) Advance care planning: See A/P At last meeting we began discussing healthcare agent. At that time he does not have anyone he would be willing to name. He is estranged from his children. He thought maybe his landlord would be willing to do it. Today, I met his lqngmj-fx-ajl Leticia Pressley briefly. After she left, Juanito said that he had asked Leticia to be to be his healthcare agent and he she is willing to do this. Initially was reluctant to designate an alternate healthcare agent. Ultimately chooses his landlord Akhil. Discussed goals of care and if he wanted any limitations of life-sustaining treatment. Did broach the subject of the fact that he most likely had significant recurrence of the cancer, albeit awaiting final pathology confirmation. He continues to be very clear that he would want CPR, shocked me once or twice, got a try . And would want to be on a ventilator, but not long- term, to try and get better. See assessment/plan as well. EtOH use: None in over a year. No urge for over a year. Tried to drink a few months ago and tasted terrible. Weight loss: Weight is up from this hospital admission, may be IV fluids. Overall his weight has been steadily declining over the last year. He is on supplements and has been seeing dietitian. Care Team: Primary Care physician: KELLY Guevara (has only met a few times). Oncology: Dr. Jose De Jesus Everett: Radiation oncology: Dr. Roblero Surgery: Dr. Driver Colorectal surgery/[facility]: Dr. Chaya Gambino (also financial sales consultant on persistent perineal wound defect) [facility] wound care clinic: Dr. Gambino (for large soft tissue defect at site of cancer) Ostomy: (Stoiber) Social HX: Lives alone in [facility], 8 years ago, from Lung Cancer. (they at the end of her life). He cares for several cow(s). He is close to his brother Sabas Esqueda and his imtymp-ag-luw Leticia Pressley. However, Sabas has health problems and Juanito feels that he does not want to stress him out with helping him with his own problems. Children: Trudi and Essie, rare contact. (Had not talked to them in years . Does not drive. I did not query why. 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 He finally got enrolled in SSI about 3 months ago and has started receiving monthly checks. Smoker: Most recent oncology note says half a pack per day EtOH: [facility] chart notes history of alcohol abuse. Patient reports no alcohol in a year since diagnosis. Hobbies: Hunting (got out once this fall), TV, keeps house running. Additional services: Ongoing assistance with transportation from [employer]. Transportation from [facility] health wound nurse weekly: cleans the wound. Impression of currents health status: Would getting a little better, otherwise the same. What bothers you the most: Being sore and trying to get around. Leg pain not gettting better. What worries you the most: nothing. The same. Goals: -Hoping that wound heals enough to sit. -FDC hopes to be able to go back to work. To Avoid: -Never wants to be in correction -Says he would never want to be on machine nursing home but does not want me to write it down, because then he is worried we would withhold helpful treatment. Current information preferences: Function: Ambulation: Uses cane when out and about. ADLs: Independent iADLs: Independent Hearing: Good Vision: reading glasses Cognition: Memory good Falls: None Palliative Performance Scale % Ambulation Activity and Evidence of Disease Self Care Intake Level of Consciousness 100 Full Normal activity, no evidence of disease Full Normal Full 90 Full Normal activity, some evidence of disease Full Normal Full 80 Full Normal activity with effort, some evidence of disease Full Normal or reduced Full 70 Reduced Unable to do normal work, some evidence of disease Full Normal or reduced Full 60 Reduced Unable to do hobby or some housework, significant disease Occasional assist necessary Normal or reduced Full or confusion 50 Mainly sit/lie Unable to do any work, extensive disease Considerable assistance required Normal or reduced Full or confusion 40 Mainly in bed Unable to do any work, extensive disease Mainly assistance Normal or reduced Full, drowsy, or confusion 30 Totally bed bound Unable to do any work, extensive disease Total care Reduced Full, drowsy, or confusion 20 Totally bed bound Unable to do any work, extensive disease Total care Minimal sips Full, drowsy, or confusion 10 Totally bed bound Unable to do any work, extensive disease Total care Mouth care only Drowsy or coma 0 - - - - Patient Score: 70/80 Spiritual history: Palliative review of systems: See HPI Pain: Dyspnea: GI symptoms: Appetite: Depression: Anxiety: None Emotional Distress: Spiritual/Existential Distress: Labs: 12/09/2023 (no updates today) Cr: 1.0 Liver panel: Essentially normal (bilirubin 0.6, AST 49, ALT 46, and alkaline phosphatase slightly elevated 156) Albumin: 3.3 CBC: Hemoglobin 13.3 Advanced Care Planning: Advanced Directive: None on file Health Care Agent: [employer] forms complteted today (02/15/2024)eLticia Pressley (sister in Law), alernate is Akhil Pagan. Estranged from children, not involved COLST: None on file. reviewed again today. WIshes to be full code. Does not want to be on breathing machine nursing home. I do not want to spend the rest of my life on a breathing machine). If not getting better, wants Leticia to pull the plug. Limitations: Assessment and Plan Assessment and plan (1) Anal squamous cell carcinoma: Status: Acute Assessment and plan: Unfortunately, Deshawn small chronic fistula and low-grade infection has now blossomed into an invasive abscess which is now resulted in sepsis. Looks like he likely has right spread nodular recurrence around the area of the abscess. Awaiting final pathology to confirm recurrence. Surgery reports that unlikely to have a surgical option. Patient will likely be meeting with Dr. Everett as outpatient to discuss if there is any treatment options available to build to him such as chemo or immunotherapy. Advance care planning: I am relieved that Juanito was finally willing to designate healthcare agent. Forms completed. We will mail a form to his home address so he has that on file. Regarding any limitations of treatment, at this point he is very clear that he would want CPR and intubation. He would not want to be ventilator dependent and would want [id number] Leticia to pull the plug if he was on a ventilator long-term. He is not receptive to thinking about implications of recurrence at this time. I will follow-up with him as an outpatient in 2 to 3 weeks, hopefully after he has met again with his oncologist Dr. Everett to see if There are any possible options for palliative chemo or immunotherapy. Pain management: Patient is deeply suspicious when anyone proposes to change his pain regimen. I think this is part of his personality. I am do not think it is interfering with adequate pain control at this time but worried that it might in the future. I think patient is more pain when he is at home and up and about during the day. Also extremely painful for him to sit in a chair since diagnosis. I am getting mixed messages about pain control, which is what he usually tells me (both tells me his pain is not at all controlled and then tells me he is needing less pain medicine than he did before) -If hospital only has OxyContin, I think it would be fine to switch him to OxyContin 20 mg twice a day. Actually this might be an opportunity to switch him to OxyContin 30 mg twice a day and see if his short acting oxycodone requirements go down. -Gabapentin caused side effects and he is not willing to try again. -Towards the end of the visit he he said I do not know why nobody lets me use morphine for the pain instead of the Xtampza . He was unable to explain to me why he wanted to switch to morphine, sounds like some friends suggested it. I would recommend keeping him overall on the oxy con long and short acting for now as it seems to be doing a reasonable job. We can reevaluate as an outpatient. Discharge planning: Juanito (currently on pressors with a central line in) was telling me that he did not think he was ready to go home tomorrow but might need to stay in an additional day or 2. He also tells me he is adamantly opposed to going to correction. Supportive counseling about the need to stay in the hospital until he was really ready to go home if he did not want to go to subacute rehab. I am not sure he endorsed this. We will continue to follow Juanito. Please contact palliative care team if you would like us to see him again in the hospital. Otherwise we will follow-up with him as outpatient in 2 to 3 weeks. (2) Cancer related pain: Status: Acute (3) Cancer cachexia: Status: Acute (4) Pelvic abscess in male: Status: Acute (5) Sepsis: Status: Acute (6) Palliative care encounter: Status: Acute (7) Advanced care planning/counseling discussion: Status: Acute 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) Pelvic abscess in male (Acute) High risk medication use (Acute) Abnormal weight loss (Acute) Skin ulcer of perineum with fat layer exposed (Acute) History of alcohol abuse (Acute) Advanced care planning/counseling discussion (Acute) Palliative care encounter (Acute) Cancer related pain (Acute) Controlled substance agreement and informed consent obtained 12/14/2023 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 (Acute) Housing insecurity (Acute) Food insecurity (Acute) 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 COPD (chronic obstructive pulmonary disease) (Chronic) Hypoalbuminemia due to protein-calorie malnutrition (Acute) Microcytic anemia (Acute) Smoker (Acute) Medical History ETOH abuse Resolved February 2023 Surgical History Status post radiation therapy Family History Other Cancer Social History Smoking/Tobacco Use Status: Current every day Tobacco Type: cigarettes Smoking risk assessment performed?: Yes Alcohol Intake: former Drug use: Rarely Substance use type: marijuana Housing: apartment Do you feel safe at home: Yes Do you feel safe in your relationship?: Yes Exam Narrative Exam Narrative: Patient lying in ICU bed with multiple drips going and central line. He is actually relaxed, good color, more pleasant and engaging than my previous 2 visits with him. Alert and oriented. Does not appear to be in pain or any distress. Results Last Vital Signs Temp 36.9 C 02/15/24 04:32 Pulse 68 02/14/24 23:40 Resp 27 H 02/15/24 15:30 BP 120/49 L 02/14/24 23:40 Pulse Ox 95 02/15/24 14:00 Labs 02/16/24 05:30 02/16/24 05:30 Labs: Laboratory Results - last 24 hr 02/15/24 05:10 WBC 11.74 H RBC 3.09 L Hgb 9.0 L Hct 26.9 L MCV 87 MCH 29.1 MCHC 33.5 RDW 15.0 H Plt Count 256 MPV 9.3 Immature Gran % 0.9 Neutrophils % 93.2 Lymphocytes % 2.2 Monocytes % 2.0 Eosinophils % 1.4 Basophils % 0.3 Nucleated RBC % 0.0 Absolute Neutrophils 10.94 H Absolute Lymphocytes 0.26 L Absolute Monocytes 0.23 Absolute Eosinophils 0.16 Absolute Basophils 0.04 Sodium 144 Potassium 3.1 L Chloride 108 H Carbon Dioxide 30.5 Anion Gap 5.5 BUN 6 L Creatinine 0.7 Est GFR (CKD-EPI 2020) 104.18 Glucose 109 H Calcium 7.6 L
[2024-02-16] VITALS (26 sets, daily range): PULSE 57–83; RESP 11–22; TEMP 37–37.6; O2SAT 91–96
[2024-02-16] MEDS: Norepinephrine in D5W 8 MG/250 ML BAG 13.125 MG IV (00:26)
[2024-02-16] MEDS: oxyCODONE 15 MG TAB PO ×5 (02:16→21:09)
[2024-02-16] MEDS: metroNIDAZOLE 500 MG/100 ML BAG 100 MG IVPB ×3 (02:16→17:55)
[2024-02-16] MEDS: Heparin 5,000 UNITS/ML VIAL 5000 UNITS SC ×3 (06:12→22:30)
[2024-02-16 06:54] LABS: Abs Immature Grans 0.21 10^3/uL (0.0-0.06); Absolute Lymphocyte Count 0.36 10^3/uL (1.2-3.4); Absolute Monocyte Count 0.54 10^3/uL (0.1-0.8); Basophils % 0.3; Eosinophils % 1.2; HCT 28.9 % (40.0-50.0); HGB 9.6 g/dL (13.5-17.5); Immature Grans % 1.1; Lymphocytes % 1.9; MCH 28.7 pg (27.0-33.0); MCHC 33.2 % (32.0-36.0); MCV 87 fL (80-95); MPV 9.6 fL (8.0-11.0); Monocytes % 2.9; Neutrophils % 92.6; Platelet Count 345 10^3/uL (130-400); RBC 3.34 10^6/uL (4.36-5.78); RDW 15.4 % (11.8-14.1); RDW-SD 49.3 fL; WBC 18.76 10^3/uL (4.4-10.8)
[2024-02-16 06:56] LABS: Absolute Basophil Count 0.06 10^3/uL (0.0-0.2); Absolute Eosinophil Count 0.23 10^3/uL (0.0-0.7); Absolute Neutrophil Count 17.37 10^3/uL (1.2-6.7)
[2024-02-16 07:07] LABS: BUN 6 mg/dL (7-18); CREATININE 0.6 mg/dL (0.70-1.30); Calcium 7.5 mg/dL (8.5-10.1); Chloride 106 mmol/L (98-107); Estimated GFR 109.14 (mL/min/1.73m2); Glucose 111 mg/dL (74-106); Potassium 3.3 mmol/L (3.5-5.1); Sodium 142 mmol/L (136-145)
--- NOTE | 2024-02-16 08:06 | PGE_ITS ---
Date of Service Date of service: 02/16/24 Time of Service: 08:06 Assessment and Plan Assessment and plan (1) Septic shock: Status: Acute Assessment and plan: 63 yo M PMH remarkable for HTN, COPD, heavy smoker, diagnosis of extensive anal squamous cell carcinoma 02/2023, he is s/p chemo-radio therapy with Modified Esau protocol with an initial excellent response, leaving a moderately large tissue defect in the perineum. He is s/p stool-diversion with a functioning colostomy. s/p emergent incision and debridement right posterior thigh abscess measured 33 x 5.5 x 6 cm in dimension on 02/13/2024, with OR irrigation and excisional debridement and washout on 02/15/2024. Wound packing will continue to be changed BID. Will assist/perform changing later today with ICU nurse. Sepsis with shock: WBC 18.76 today (? elevation from wash out and debridement yesterday) end-organ dysfunction as evidenced by hypotension, requirement for continued vasoactive support known source for infection Severe protein calorie malnutrition: -evidenced by albumin 1.4 -weight loss of 25 lbs, >10% body weight in <6 months -Advance to a regular diet today -Protein supplements encouraged Hypotension: -maintenance fluids -continue pressor support, -wean to MAP 60-65 mmHg -Maintain Leigh catheter until no longer requiring vasoactive support (2) Soft tissue infection: Status: Acute Assessment and plan: Infected soft tissue wound -BID dressing changes -may require penitentiary for ongoing wound care -patient is going to be unable to perform necessary wound care on his own; discussed with Mr. Esqueda that he will require assistance with dressing changes upon d/c Subjective Subjective Interval history since last seen: Arrive with patient resting in bed. He expresses he is hoping to be cleaned up this morning. He states his pain is tolerable at the current time, however is never fully controlled. Exam Const General: cooperative, healthy appearing and comfortable Orientation: alert and oriented x3 Resp Effort & Inspection: normal respiratory effort, no audible wheezes and no cough Objective Last Vital Signs Temp 37.4 C 02/16/24 07:00 Pulse 68 02/14/24 23:40 Resp 20 02/16/24 01:00 BP 120/49 L 02/14/24 23:40 Pulse Ox 96 02/16/24 07:00 Laboratory Results - last 24 hr 02/16/24 05:30 WBC 18.76 H RBC 3.34 L Hgb 9.6 L Hct 28.9 L MCV 87 MCH 28.7 MCHC 33.2 RDW 15.4 H Plt Count 345 MPV 9.6 Immature Gran % 1.1 Neutrophils % 92.6 Lymphocytes % 1.9 Monocytes % 2.9 Eosinophils % 1.2 Basophils % 0.3 Nucleated RBC % 0.0 Absolute Neutrophils 17.37 H Absolute Lymphocytes 0.36 L Absolute Monocytes 0.54 Absolute Eosinophils 0.23 Absolute Basophils 0.06 Sodium 142 Potassium 3.3 L Chloride 106 Carbon Dioxide 30.0 Anion Gap 6.0 BUN 6 L Creatinine 0.6 L Est GFR (CKD-EPI 2020) 109.14 Glucose 111 H Calcium 7.5 L Time Spent with Patient Time Spent with Patient: <25 minutes Time was spent: preparing to see the patient(eg.review tests), obtaining and/or reviewing separately otained hiistory and counseling the patient
[2024-02-16] MEDS: Nicotine 21 MG/24 HR PATCH TD (08:27)
--- NOTE | 2024-02-16 08:34 | CMPROGNOTE_ITS ---
Date of service: 02/16/24 Time of Service: 08:34 Care Management Progress Note Progress Note Text Progress Note Text: S/O: Ronaldo was lying in bed when CM met with him. He was polite and maintained eye contact but seemed anxious. He asked CM if plans were being made for him to have dressing changes at home when he is discharged. He informed CM that he would not be able to do it himself. He stated that he currently only has a nurse come twice a week for wound care. CM assured him that the provider would order home health to increase the frequency of visits to accommodate his needs. While CM was meeting with Ronaldo, his nurse rounded with the oncoming nurse. They discussed the fact that Ronaldo is scheduled to have another dressing change this evening. Ronaldo has a deep wound on his posterior thigh with a lot of packing and the dressing change procedure, particularly during the removal of the packing, is extremely painful. He expressed a preference to skip tonight and have it don first thing tomorrow morning. His nurse explained that it needs to be done twice a day, every day, so they would need to do it this evening. She did inform him that she would medicate him first to reduce the amount of pain he will experience. She also informed him that there is less packing than before so the procedure should not be quite a painful as it was this morning. Ronaldo seemed satisfied with the response. A: Ronaldo is a 63 year old male admitted to [facility] 02/13/24 for sepsis, hypotension, soft tissue infection. P: Ronaldo will discharge home when medically stable. He will transport via private vehicle with a friend and follow up with his PCP and discharge plan of care. Ronaldo will have a resumption of RN services with new wound care orders. CM will follow and continue to support discharge needs. SDOH(Care Management) Screening Will the Patient Participate in the Screening?: Unable to obtain Health Related Social Needs Health related social needs details: patient unable to participate at this time in page 2 assessment
[2024-02-16] MEDS: Normal Saline 1,000 ML 100 ML IV ×2 (08:45→19:56)
[2024-02-16] MEDS: HYDROmorphone 2 MG/ML SYR 1 MG IVP ×2 (12:44→17:53)
[2024-02-16] MEDS: Norepinephrine in D5W 8 MG/250 ML BAG 11.25 MG IV (16:24)
[2024-02-16] MEDS: Acetaminophen 325 MG TAB 975 MG PO (19:56)
[2024-02-17] VITALS (70 sets, daily range): BP systolic 75–109; BP diastolic 43–74; PULSE 52–127; RESP 13–25; TEMP 36.8–37.4; O2SAT 87–96
[2024-02-17] MEDS: oxyCODONE 15 MG TAB PO ×6 (01:04→23:05)
[2024-02-17] MEDS: metroNIDAZOLE 500 MG/100 ML BAG 100 MG IVPB ×2 (02:08→09:48)
[2024-02-17] MEDS: Heparin 5,000 UNITS/ML VIAL 5000 UNITS SC ×3 (05:55→21:44)
[2024-02-17 07:01] LABS: HCT 29.8 % (40.0-50.0); HGB 9.8 g/dL (13.5-17.5); MCH 28.5 pg (27.0-33.0); MCHC 32.9 % (32.0-36.0); MCV 87 fL (80-95); MPV 9.2 fL (8.0-11.0); Platelet Count 361 10^3/uL (130-400); RBC 3.44 10^6/uL (4.36-5.78); RDW 15.7 % (11.8-14.1); RDW-SD 48.9 fL; WBC 12.66 10^3/uL (4.4-10.8)
[2024-02-17 07:21] LABS: Anion Gap 7.9 mmol/L (3-11); BUN 6 mg/dL (7-18); CO2 29.1 mmol/L (21.0-32.0); CREATININE 0.7 mg/dL (0.70-1.30); Calcium 7.7 mg/dL (8.5-10.1); Chloride 105 mmol/L (98-107); Estimated GFR 104.18 (mL/min/1.73m2); Glucose 130 mg/dL (74-106); Potassium 3.2 mmol/L (3.5-5.1); Sodium 142 mmol/L (136-145)
[2024-02-17] MEDS: Normal Saline 1,000 ML 100 ML IV ×2 (07:44→18:19)
[2024-02-17] MEDS: Nicotine 21 MG/24 HR PATCH TD (08:05)
--- NOTE | 2024-02-17 08:25 | PDOC.CMPRO ---
Date of service: 02/17/24 Care Management Progress Note Progress Note Text Progress Note Text: S/O: Ronaldo was lying in bed when talking with CM. He described that his wound is healing and requiring less gauze. He reiterated his wound care needs are twice a day dressing changes. [facility]; Surinder called and stated they are unable to go into the home twice daily so offered to do some caregiver education. Ronaldo reports he will check with a friend but the friend would only be able to do once a day. Ronaldo reports he has not seen his PCP since his cancer diagnosis and would like to be considered for wound care assessments at [facility] wound clinic. CM updated surgeon regarding dressing changes. CM following. A: Ronaldo is a 63 year old male admitted to [facility] 02/13/24 for sepsis, hypotension, soft tissue infection. P: Ronaldo will discharge home when medically stable. He will transport via private vehicle with a friend and follow up with his PCP and discharge plan of care. Ronaldo will have a resumption of RN services with new wound care orders. CM will follow and continue to support discharge needs. SDOH(Care Management) Screening Will the Patient Participate in the Screening?: Unable to obtain Health Related Social Needs Health related social needs details: patient unable to participate at this time in page 2 assessment
[2024-02-17] MEDS: HYDROmorphone 2 MG/ML SYR 1 MG IVP ×2 (09:58→22:21)
--- NOTE | 2024-02-17 10:44 | W.NUTRFU ---
Date of service: 02/17/24 Time of Service: 10:44 Nutrition Note NOTE: Pt known from previous admission in January. wt over this time stable but still low with overall 15.5% bodyweight loss over the last year. PO intake erratic with range of refusal to 100% at variuous meals. Will trial boost ONS at Lunch and dinner and check with pt on toleration. Time Spent in Nutritional Counseling and Treatment: 0
--- NOTE | 2024-02-17 12:37 | W.PM.PROGNOT ---
Date of Service Date of service: 02/17/24 Time of Service: 12:37 Assessment and Plan Assessment and plan (1) Sepsis associated hypotension: Status: Acute Assessment and plan: We will continue to wean down the norepinephrine as his mean arterial blood pressure improves. His culture data shows polymicrobial infection with heavy growth of various organisms. No speciation is available yet. Nor there are any sensitivities. Interestingly, he is only been on metronidazole for the past 48 hours or so. In light of the fact that the wound seems well-drained, I think it is probably reasonable to stop all the antibiotics at this point and see how this evolves. I talked with him very frankly about my concern of osteomyelitis of the ischium, and what that means for his long-term prognosis. If that is a true source, he would need fairly extensive reconstructive surgery with soft tissue coverage and prolonged course of antibiotics. Even that, however, in a radiated field, may prove quite challenging. Certainly is beyond the capability of what we have here. For now, he is most interested in making a recovery from the acute abscess, getting home. Therefore, we will target that is our primary goal at this point. Subjective Subjective Interval history since last seen: Juanito looks a little better today, and seems more comfortable overall. He has been afebrile overnight, and the norepinephrine has been weaning downward. White blood cell count is also heading towards normal. Exam Skin Other: The wound is clean, and the erythema seems to be improving. He continues to have a little bit of ecchymosis over the posterior portion of the right knee. It is not tender or fluctuant. Objective Last Vital Signs Temp 99.0 F 02/17/24 11:50 Pulse 65 02/17/24 07:31 Resp 20 02/17/24 04:07 BP 97/65 L 02/17/24 07:31 Pulse Ox 93 02/17/24 07:32 Laboratory Results - last 24 hr 02/17/24 05:45 WBC 12.66 H RBC 3.44 L Hgb 9.8 L Hct 29.8 L MCV 87 MCH 28.5 MCHC 32.9 RDW 15.7 H Plt Count 361 MPV 9.2 Sodium 142 Potassium 3.2 L Chloride 105 Carbon Dioxide 29.1 Anion Gap 7.9 BUN 6 L Creatinine 0.7 Est GFR (CKD-EPI 2020) 104.18 Glucose 130 H Calcium 7.7 L Time Spent with Patient Time Spent with Patient: 35-49 minutes Time was spent: preparing to see the patient(eg.review tests), ordering medications,tests, procedures, indepentently interpreting results and counseling the patient
--- NOTE | 2024-02-17 16:15 | CHAPLAIN ---
I has a brief visit with Ronaldo. He was resting in bed watching tv. He said he was told he has to be on his side now. I explained my role and offered support. Ronaldo wasn't interested in further conversation, but asked for ice water which I got for him. I will try again another time. .
[2024-02-17] MEDS: Normal Saline Flush 10 ML SYR IVP (19:16)
[2024-02-18] VITALS (25 sets, daily range): BP systolic 66–102; BP diastolic 29–70; PULSE 75–106; RESP 12–25; TEMP 37–37.5; O2SAT 88–97
[2024-02-18] MEDS: oxyCODONE 15 MG TAB PO ×3 (03:23→13:34)
[2024-02-18] MEDS: Normal Saline 1,000 ML 100 ML IV (05:18)
[2024-02-18] MEDS: Heparin 5,000 UNITS/ML VIAL 5000 UNITS SC (05:56)
--- NOTE | 2024-02-18 06:20 | NUR.NOTE ---
awake and d/o right knee pain .states that it feels like its full of fluid R knee appears slightly larger than left.wants to talk to Dr about going home because he doesn't need any more saline or monitors passed along to day shift
[2024-02-18 06:52] LABS: HCT 27.9 % (40.0-50.0); HGB 9.3 g/dL (13.5-17.5); MCH 28.2 pg (27.0-33.0); MCHC 33.3 % (32.0-36.0); MCV 85 fL (80-95); MPV 9.5 fL (8.0-11.0); Platelet Count 316 10^3/uL (130-400); RDW 15.8 % (11.8-14.1); RDW-SD 48.5 fL; WBC 12.69 10^3/uL (4.4-10.8)
[2024-02-18] MEDS: HYDROmorphone 2 MG/ML SYR 1 MG IVP (08:30)
[2024-02-18] MEDS: Normal Saline Flush 10 ML SYR IVP (08:31)
[2024-02-18] MEDS: Nicotine 21 MG/24 HR PATCH TD (09:22)
--- NOTE | 2024-02-18 10:21 | PDOC.CMPRO ---
Date of service: 02/18/24 Care Management Progress Note Progress Note Text Progress Note Text: S/O: Ronaldo was lying on his side in bed when talking with CM. He reports his pain is manageable and he would like to go home. CM let RN know Pt requested wound care supplies, called and spoke to Surinder at [facility] to inform of potential discharge A: Ronaldo is a 63 year old male admitted to [facility] 02/13/24 for sepsis, hypotension, soft tissue infection. P: Ronaldo will discharge home when medically stable. He will transport via private vehicle with a friend and follow up with his PCP and discharge plan of care. Ronaldo will have a resumption of RN services with new wound care orders. CM will follow and continue to support discharge needs. SDOH(Care Management) Screening Will the Patient Participate in the Screening?: Unable to obtain Health Related Social Needs Health related social needs details: patient unable to participate at this time in page 2 assessment
--- NOTE | 2024-02-18 13:41 | W.PM.DS.N ---
Date of service: 02/18/24 Time of Service: 14:00 DS: Diagnosis Discharge Diagnosis (1) Sepsis associated hypotension: Status: Acute Discharge Plan Disposition Patient Disposition: Home Condition: Poor Discharge Details Reason For Visit: sepsis, hypotension, soft tissue infection/osteomy Admit Date/Time: 02/13/24 15:15 Admit Provider: Gatito Jose Attending Provider: Gatito Jose Primary Care Provider: Guru Everett Hospital Course Hospital Course: Patient is well-known to the surgical service. He was admitted on 02/12 with worsening of his pelvic abscess. 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 He is developed a large pelvic abscess. He has osteomyelitis of the ischium apparent on his CT from 01/23. He had a drain placed in the abscess in the pelvis by [facility]. Unfortunately it became larger and he was admitted to the hospital on 02/12 in septic shock. He went to the OR for debridement. This is a large abscess that radiates from the buttock down the leg. He had blood cultures done which showed Staph hominis in 1 bottle. Wound cultures grew out B fragilis and heavy growth of anaerobes. He was kept on vancomycin/gentamicin/Flagyl. -He did require a central line and pressors for 48 hours because of his sepsis. -He did have an elevation of his troponins. Urgent neurology was consulted. Cards: Elevated troponin: Status: Acute Assessment and plan: I would concur with Dr. Duarte that this is a type II myocardial infarction due to demand ischemia on the basis of sepsis. There is no indication for heparin. There is no indication for beta-oniel. I would recommend an echocardiogram to assess LV function, continue supportive care. I would not recommend an ischemic evaluation such as a myocardial perfusion imaging study nor cardiac catheterization. Baby aspirin would be reasonable. -Also given the fact that patient is terminal and does not want to spend much time in the hospital, I think supportive care is reasonable ECHO:Conclusion Normal LV chamber size. EF is 55%. Septal motion is consistent with an interventricular conduction delay Normal right ventricular size and function both atria are normal in size There are no structural or hemodynamically significant valvular abnormalities Estimated right ventricualr systolic pressure is 44 mmHg -We did talk about goals of care. His main goal of care is to not be in pain. I did discuss with him today that he does have metastatic disease. There is really no more chemo/radiation to offer for him. Colorectal surgery advised him to go into hospice. He is not eligible for any further surgery. He did have an recent PET scan in which did show stage IV metastatic disease. And the tumor is continuing to grow while he was on chemo and radiation. All chemo and radiation has been discontinued. On CT he does have osteomyelitis. The abscess has become larger/and have necrotic tumor. He is going to need to do daily dressing changes through this area at home Dr. Everett did give him a month supply of Levaquin and Flagyl. He probably should stay on this prophylactically lifelong. I strongly encouraged him to consider going into hospice as he will get much better pain control /Relief in hospice Patient is adamant about going home today. Care management is able to get home health care established for daily dressing changes starting Wednesday. He has been able to eat. I did encourage him to continue to do protein shakes 1-2 a day in addition to Meals. Colostomy is functioning. He does have prolapse of the stoma. But unfortunately he is going to need to learn to reduce the prolapse. He is not a candidate for revision. Home Meds and New Rx's Prescriptions: New acetaminophen 325 mg Tablet 1,000 mg PO TID Qty: 100 3RF polyethylene glycol 3350 17 gram Powder In Packet 17 g PO HS Qty: 325 12RF oxycodone 15 mg Tablet 15 mg PO Q4H PRN PRN (Reason: pain) Qty: 30 0RF docusate sodium [Colace] 100 mg Capsule 100 mg PO TID Qty: 90 12RF gabapentin 300 mg Capsule 300 mg PO TID Qty: 90 8RF Dakin's Solution 0.5 % Solution 473 ml topical DIRECTED Qty: 473 12RF Rx Instructions: daily dressing changes Continued oxycodone 15 mg tablet 15 - 30 mg PO Q4H MDD 8 pills PRN (Reason: pain) Qty: 240 0RF lidocaine HCl 4 % cream 1 applic topical Q4H PRN PRN Xtampza ER 18 mg cap,sprinkl,ER12hr(DONT CRUSH) 18 mg PO BID MDD 2 pills Qty: 60 0RF Rx Instructions: must administer with a meal/food levofloxacin 750 mg tablet 750 mg PO DAILY Patient Comments: TAKE ONE TABLET BY MOUTH EVERY DAY- picked up but never started metronidazole 500 mg tablet 500 mg PO TID Patient Comments: TAKE ONE TABLET BY MOUTH THREE TIMES A DAY- picked up but never started Discontinued silver sulfadiazine 1 % cream 1 applic topical QID Rx Instructions: apply a 1.5 mm thickness Discharge Instructions Additional Instructions: -take the antibiotics Dr. Everett prescribed: x(1) levaquin adn (3) Flagyl daily. push fluids -Routine colostomy care -X 1 Daily dressing change. Remove packing. Shower. And then home health will come and repacked with Dakin solution and gauze -Contact Dr. Loyola to make an appointment to discuss hospice for pain management [phone] hospice can get you much better pain control. -High-protein diet. Try to get 70 g of protein in the day. Protein shakes 2-3 times a day. -Walk as much as possible. -f/u in surgery clinic in 2 weeks time. call if problems [phone] Driver 02/24/24 at 9:15 am -Home health will come out on Wednesday Activity:: Activity as Tolerated Equipment/Supplies:: No Equipment Needed Diet:: high protein Discharge Orders Discharge Orders: Discharge Order (Routine); Ordered 02/18/24 Ordered By: Chelsea Driver Discharge Data Discharge Date/Time-TO BE ENTERED AT DEPARTURE: 02/18/24 15:20 Discharge Comment: home with friend in private vehicle DS: Summary Time Spent with Patient providing and/or coordinating discharge services: Greater than 30 minutes Status at Discharge Functional status at discharge: uses cane/walker Overall status at discharge: other Mental Status: mental status grossly normal Speech and Movement: speech and movement normal Mood: congruent mood Affect: normal affect Quality:SDOH Health Related Social Needs: Health related social needs details patient unable to participate at this time in page 2 assessment Health related social needs details: patient unable to participate at this time in page 2 assessment Referrals and interventions: patient unable to participate at this time in page 2 assessment Exam Psych Mental Status: mental status grossly normal Speech and Movement: speech and movement normal Mood: congruent mood Affect: normal affect DS: Data Vitals/I&O Vitals and I&O: Vital Signs Temperature 37.5 C 02/18/24 08:00 Temperature Source Temporal Artery Scan 02/18/24 12:04 Pulse 102 H 02/18/24 12:00 Pulse 98 H 02/18/24 12:00 Respiratory Rate 25 H 02/18/24 12:04 Respiratory Effort Normal, Non-Labored 02/18/24 12:04 Respiratory Depth Normal 02/18/24 12:04 Respiratory Pattern Normal 02/18/24 12:04 Blood Pressure 83/70 L 02/18/24 12:00 Blood Pressure Mean 77 02/18/24 12:00 Blood Pressure Position Right Lateral 02/18/24 12:04 Pulse Oximetry 97 02/18/24 12:04 Respiratory End-tidal CO2 33 02/13/24 15:37 Oxygen Delivery Method Room Air 02/18/24 12:04 Oxygen Flow Rate 0 02/18/24 12:04 Pain Level 5 02/18/24 12:04 Comment room air 02/13/24 16:20 Arterial Systolic 119 02/17/24 03:00 Arterial Diastolic 44 02/17/24 03:00 Arterial Mean 231 02/17/24 04:00 Intake & Output 02/17/24 02/18/24 02/18/24 23:59 11:59 23:59 Intake Total 1100 / 2580.625 3300 / 3660 360 / 3660 Output Total 2600 / 3925 2900 / 3300 400 / 3300 Balance -1500 / -1344.375 400 / 360 -40 / 360 Weight 63.7 kg Intake: IV 1100 / 2340.625 1000 / 1000 Oral 2300 / 2660 360 / 2660 Output: Urine 1750 / 3075 1500 / 1800 300 / 1800 Stool 850 / 850 1400 / 1500 100 / 1500 Other: Urine Color Yellow Yellow Yellow Urine Appearance Clear Clear Urine Odor None None Comment voiding clear urine in urinal Stool Characteristics Soft Liquid Liquid Brown Brown Voiding Methods Urinal Urinal Data Completed and Pending Labs on day of discharge: Labs from last 24 hours 02/18/24 06:00 WBC 12.69 H RBC 3.30 L Hgb 9.3 L Hct 27.9 L MCV 85 MCH 28.2 MCHC 33.3 RDW 15.8 H Plt Count 316 MPV 9.5 Preliminary micro results at discharge 02/13/24 16:50 Blood Culture - Preliminary Blood NO GROWTH 96 HOURS 02/13/24 16:45 Blood Culture - Preliminary Blood NO GROWTH 96 HOURS 02/13/24 09:20 Blood Culture - Preliminary Blood Staph hominis ssp hominis PFSH All Active Problems Osteomyelitis, pelvis (Acute) Metastatic cancer (Acute) 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 (Acute) Cancer cachexia (Acute) Pelvic abscess in male (Acute) High risk medication use (Acute) Abnormal weight loss (Acute) Skin ulcer of perineum with fat layer exposed (Acute) History of alcohol abuse (Acute) Advanced care planning/counseling discussion (Acute) Palliative care encounter (Acute) Cancer related pain (Acute) Controlled substance agreement and informed consent obtained 12/14/2023 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) Housing insecurity (Acute) Food insecurity (Acute) 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 COPD (chronic obstructive pulmonary disease) (Chronic) Hypoalbuminemia due to protein-calorie malnutrition (Acute) Microcytic anemia (Acute) Smoker (Acute) Medical History ETOH abuse Resolved February 2023 Surgical History Status post radiation therapy Family History Other Cancer Social History Smoking/Tobacco Use Status: Current every day Tobacco Type: cigarettes Smoking risk assessment performed?: Yes Alcohol Intake: former Drug use: Rarely Substance use type: marijuana Housing: apartment Do you feel safe at home: Yes Do you feel safe in your relationship?: Yes Time Spent with Patient Time Spent with Patient: 45-69 minutes Time was spent: preparing to see the patient(eg.review tests), obtaining and/or reviewing separately otained hiistory, ordering medications,tests, procedures, referring, communicating with other health property caretaker, indepentently interpreting results, counseling the patient and care coordination
--- NOTE | 2024-02-18 14:01 | W.PM.PROGNOT ---
Date of Service Date of service: 02/18/24 Time of Service: 16:34 Assessment and Plan Assessment and plan (1) Primary cancer of anal canal: Status: Acute Assessment and plan: Patient has stage IV disease. Cancer is going on his last PET scan. Patient is not a candidate for a flap because of his increasing tumor burden and because he is a smoker. There is no more chemo or radiation therapy for him. Colorectal advised him to go into hospice hospice (2) Metastatic cancer: Status: Acute (3) Osteomyelitis, pelvis: Status: Acute Assessment and plan: Continue on lifelong suppression with Levaquin and Flagyl-patient currently has a month supply (4) High risk medication use: Status: Acute (5) Abnormal weight loss: Status: Acute (6) Colostomy in place: Status: Chronic Assessment and plan: Functioning well and patient has supplies functioning well and patient has supplies MiraLAX as needed to avoid opioid-induced constipation. If he is constipated then he is going to get stomal prolapse. He is not a candidate for stomal revision and is going to need how to learn how to reduce the prolapse (7) Cancer related pain: Status: Acute Assessment and plan: Patient has a large necrotic ulcer and abscess secondary to tumor. And very concerned as to how we are going to control his pain. He is developing a high tolerance for narcotics. We had a very jose daniel discussion about his prognosis and goals of care. I think he would be best served by going into hospice. That does not mean we are going to stop treating him. But at this point there is not much we can do for the tumor. Hospice can provide much better pain control I did send a note to Dr. Loyola and encourage patient to follow-up with them on Wednesday (8) Skin ulcer of perineum with fat layer exposed: Status: Acute (9) COPD (chronic obstructive pulmonary disease): Status: Chronic Assessment and plan: Patient continues to smoke (10) Hypoalbuminemia due to protein-calorie malnutrition: Status: Acute (11) Cancer cachexia: Status: Acute Assessment and plan: Protein shakes 2-3 times a day Activity as tolerated (12) Smoker: Status: Acute Subjective Subjective Interval history since last seen: Pt is reasonably well. no headaches. No CP or SOB. no productive cough. no dysuria. no leg pain or swelling. He is off of pressors He is requiring IV narcotics for pain control. I am little concerned on how he is going to control pain/do dressing changes at home. He is able to ambulate with a walker. He is trying to eat but he does not have much appetite. He really wants to go home today. We did talk about goals of care. His main goal of care is to not be in pain. I did discuss with him today that he does have metastatic disease. There is really no more chemo/radiation to offer for him. Colorectal surgery advised him to go into hospice. He is not eligible for any further surgery. He did have an recent PET scan in which did show stage IV metastatic disease. And the tumor is continuing to grow On CT he does have osteomyelitis. The abscess has become larger/and have necrotic tumor. He is going to need to do daily dressing changes through this area at home Dr. Everett did give him a month supply of Levaquin and Flagyl. He probably should stay on this prophylactically lifelong. I strongly encouraged him to consider going into hospice as he will get much better pain control /Relief in hospice Patient is adamant about going home today. Care management is able to get home health care established for daily dressing changes starting Wednesday. He has been able to eat. I did encourage him to continue to do protein shakes 1-2 a day in addition to Meals. Colostomy is functioning. He does have prolapse of the stoma. But unfortunately he is going to need to learn to reduce the prolapse. He is not a candidate for revision. Exam Narrative Exam Narrative: Line site is clean dry and intact. Blood pressure has been stable. NSR today. Lungs are clear bilaterally Cardio is NSR Abdomen is soft and nontender. Colostomy is functional Packing was done previously by nursing. Objective Last Vital Signs Temp 37.5 C 02/18/24 08:00 Pulse 102 H 02/18/24 12:00 Resp 25 H 02/18/24 12:04 BP 83/70 L 02/18/24 12:00 Pulse Ox 97 02/18/24 12:04 Laboratory Results - last 24 hr 02/18/24 06:00 WBC 12.69 H RBC 3.30 L Hgb 9.3 L Hct 27.9 L MCV 85 MCH 28.2 MCHC 33.3 RDW 15.8 H Plt Count 316 MPV 9.5 Time Spent with Patient Time Spent with Patient: <25 minutes Time was spent: preparing to see the patient(eg.review tests), obtaining and/or reviewing separately otained hiistory, ordering medications,tests, procedures, referring, communicating with other health family day care worker, indepentently interpreting results, counseling the patient and care coordination
--- NOTE | 2024-02-18 15:02 | PDOC.CMDIS ---
Date of service: 02/18/24 LACE Index Scoring Tool Questions: Length of Stay (in days): 4 - 6 Was the patient admitted via the E.D.?: Yes E.D. Visits: 3 Answers: Total Score: 10 Risk of Readmission: High Risk Care Management Discharge Plan Reason for Hospitalization: Sepsis, hypotension, soft tissue infection. Discharge Plan: Ronaldo will discharge home today. He will transport home via private vehicle with a friend. He will follow up with his PCP and discharge plan of care. He will receive follow up wound care through [facility] surgical department. He will have a resumption of primary care provider services through [facility]. Patient/Family Education Needs: Review discharge instructions and plan of care as prescribed. Discussion of Ask Me Three self care needs upon discharge. SDOH Health Related Social Needs: Health related social needs details patient unable to participate at this time in page 2 assessment Health related social needs details: patient unable to participate at this time in page 2 assessment Referrals and interventions: patient unable to participate at this time in page 2 assessment Disposition Transport via of: Private [email or web address]
== END 2024-02-18 15:20 | disposition home or self-care (01) | DRG 853 ==
LOC: ER 11:01 → DSU 12:44 → ICU 16:19
PROVIDERS: General Practice; Surgery; Admitting Provider Surgery; Emergency Provider Student in an Organized Health Care Education/Training Program; PCP Internal Medicine Hematology & Oncology; Visit Provider Surgery
PROC: 0K9Q00Z Drainage of Right Upper Leg Muscle with Drainage Device, Open Approach (ICD-10-PCS; CPT 27301; principal; 2024-02-13 12:30)
PROC: 0KBQ0ZZ Excision of Right Upper Leg Muscle, Open Approach (ICD-10-PCS; CPT 11043; principal; 2024-02-15 12:00)
DX: A41.9 Sepsis, unspecified organism; E43 Unspecified severe protein-calorie malnutrition; R65.21 Severe sepsis with septic shock; I21.A1 Myocardial infarction type 2; C21.1 Malignant neoplasm of anal canal; R64 Cachexia; Z68.1 Body mass index [BMI] 19.9 or less, adult; K94.09 Other complications of colostomy; M86.8X8 Other osteomyelitis, other site; C79.89 Secondary malignant neoplasm of other specified sites; M60.003 Infective myositis, unspecified right leg; G89.3 Neoplasm related pain (acute) (chronic); L98.492 Non-pressure chronic ulcer of skin of other sites with fat layer exposed; J44.9 Chronic obstructive pulmonary disease, unspecified; F17.210 Nicotine dependence, cigarettes, uncomplicated; E83.42 Hypomagnesemia; E87.6 Hypokalemia; F10.11 Alcohol abuse, in remission; D50.9 Iron deficiency anemia, unspecified; F12.90 Cannabis use, unspecified, uncomplicated; Z92.3 Personal history of irradiation; Z92.21 Personal history of antineoplastic chemotherapy; B95.7 Other staphylococcus as the cause of diseases classified elsewhere; B96.6 Bacteroides fragilis [B. fragilis] as the cause of diseases classified elsewhere
CPT/HCPCS: 27301; 11622; 11621; 11043; 00123; 36410; 36415; 36556; 36591; 71045; 80048; 80053; 80076; 82550; 85027; 85652; 87040; 87077; 88305; 93005; 96365; 96366; 96367; 96375; 99291; 73701; 74177; 81003; 81015; 83605; 83735; 84484; 85025; 86140; 87070; 87075; 87186; 87205; 93010; 93306; J0737; J1170; J1580; J1644; J1836; J2001; J2250; J2270; J2371; J2405; J2543; J2704; J3010; J3370; J3372; J3475; J3480; J3490; Q9967

== ENCOUNTER → 2024-03-09 10:41 | Outpatient (CLI) | payer MEDICAID, SELFPAY ==
--- NOTE | 2024-03-09 09:45 | DI.US_ITS ---
Exam(s) US LOWER EXTREMITY VENOUS RT EXAM: US LOWER EXTREMITY VENOUS RT CLINICAL HISTORY: I82.409 DVT -acute embolism /thrombosis of deep veins of lwr ext. TECHNIQUE: Lower extremity venous ultrasound performed using grayscale, color-flow, and spectral Do ppler analysis. COMPARISON: No exams were available for comparison FINDINGS: The common femoral and superficial femoral veins demonstrate normal compressibility, augmentation, an d color Doppler. The posterior tibial veins are patent. Thrombus is visible within the popliteal vei n measuring approximately 4 cm in length. No saphenous vein thrombosis or other superficial venous t hrombosis is seen. No hematoma or Locke's cyst is seen. Edema noted in the lower leg. IMPRESSION: Deep venous thrombosis in the popliteal vein. DATA REPOSITORY:
== END ==
PROVIDERS: PCP Physician Assistant; Visit Provider Surgery
DX: K94.19 Other complications of enterostomy; C21.1 Malignant neoplasm of anal canal; G89.3 Neoplasm related pain (acute) (chronic); L98.492 Non-pressure chronic ulcer of skin of other sites with fat layer exposed; J44.9 Chronic obstructive pulmonary disease, unspecified; E88.09 Other disorders of plasma-protein metabolism, not elsewhere classified; R64 Cachexia; I82.412 Acute embolism and thrombosis of left femoral vein
CPT/HCPCS: 93971

== ENCOUNTER 2024-03-17 01:45 | Outpatient (CLI) | payer MEDICAID, SELFPAY ==
[2024-03-17 13:05] LABS: Abs Immature Grans 0.06 10^3/uL (0.0-0.06); Absolute Basophil Count 0.03 10^3/uL (0.0-0.2); Absolute Eosinophil Count 0.27 10^3/uL (0.0-0.7); Absolute Lymphocyte Count 0.54 10^3/uL (1.2-3.4); Absolute Monocyte Count 0.66 10^3/uL (0.1-0.8); Absolute Neutrophil Count 6.78 10^3/uL (1.2-6.7); Basophils % 0.4 %; Eosinophils % 3.2 %; HCT 33.7 % (40.0-50.0); HGB 10.6 g/dL (13.5-17.5); Immature Grans % 0.7 %; Lymphocytes % 6.5 %; MCH 29.9 pg (27.0-33.0); MCHC 31.5 % (32.0-36.0); MCV 95 fL (80-95); MPV 8.8 fL (8.0-11.0); Monocytes % 7.9 %; Neutrophils % 81.3 %; Platelet Count 202 10^3/uL (130-400); RBC 3.55 10^6/uL (4.36-5.78); RDW 18.4 % (11.8-14.1); RDW-SD 64.3 fL; WBC 8.34 10^3/uL (4.4-10.8)
[2024-03-17 13:20] LABS: ALT 21 U/L (16-63); AST 40 U/L (15-37); Albumin 2.9 g/dL (3.4-5.0); Alkaline Phosphatase 108 U/L (46-116); Anion Gap 8.6 mmol/L (3-11); BUN 14 mg/dL (7-18); Bilirubin, Total 0.3 mg/dL (0.2-1.0); CO2 27.4 mmol/L (21.0-32.0); CREATININE 0.9 mg/dL (0.70-1.30); Calcium 8.7 mg/dL (8.5-10.1); Chloride 103 mmol/L (98-107); Estimated GFR 96.57 (mL/min/1.73m2); Glucose 114 mg/dL (74-106); Potassium 3.9 mmol/L (3.5-5.1); Sodium 139 mmol/L (136-145); Total Protein 7.6 g/dL (6.4-8.2)
== END 2024-03-17 01:46 | disposition home or self-care (01) ==
LOC: LBO 01:46
PROVIDERS: PCP Physician Assistant; Visit Provider Internal Medicine Hematology & Oncology
DX: C21.0 Malignant neoplasm of anus, unspecified (principal)
CPT/HCPCS: 36415; 80053; 85025

== ENCOUNTER → 2024-03-31 01:02 | Outpatient (CLI) | payer MEDICAID, SELFPAY ==
[2024-03-31 09:40] LABS: HCT 35.2 % (40.0-50.0); HGB 11.1 g/dL (13.5-17.5); MCH 29.2 pg (27.0-33.0); MCHC 31.5 % (32.0-36.0); MCV 93 fL (80-95); MPV 8.5 fL (8.0-11.0); Platelet Count 215 10^3/uL (130-400); RDW 17.1 % (11.8-14.1); RDW-SD 58.5 fL; WBC 7.41 10^3/uL (4.4-10.8)
[2024-03-31] MEDS: Barium Sulfate 2% W/V-Berry Smoothie 450 ML BTL PO ×2 (09:44→09:45)
[2024-03-31 09:53] LABS: ALT 26 U/L (16-63); AST 33 U/L (15-37); Albumin 3.1 g/dL (3.4-5.0); Alkaline Phosphatase 103 U/L (46-116); Anion Gap 1.7 mmol/L (3-11); BUN 9 mg/dL (7-18); Bilirubin, Total 0.2 mg/dL (0.2-1.0); CO2 27.3 mmol/L (21.0-32.0); CREATININE 0.8 mg/dL (0.70-1.30); Calcium 8.9 mg/dL (8.5-10.1); Chloride 104 mmol/L (98-107); Estimated GFR 100.06 (mL/min/1.73m2); Glucose 106 mg/dL (74-106); Sodium 133 mmol/L (136-145); Total Protein 7.5 g/dL (6.4-8.2)
[2024-03-31] MEDS: Omnipaque 350 MG/ML 500 ML BTL-Imaging package 100 ML IJ (11:18)
[2024-03-31] MEDS: Normal Saline - Diluent 50 ML VIAL IJ (11:23)
--- NOTE | 2024-03-31 11:35 | DI.CT_ITS ---
Exam(s) CT CHEST/ABD/PEL W EXAM: CT CHEST/ABD/PEL W CLINICAL HISTORY: Anal CA, C21.0, with persistent disease and pelvic abscess. TECHNIQUE: Imaging Protocol: Axial computed tomography images with coronal and sagittal reformatted images were created and reviewed CONTRAST MATERIAL: Intravenous: Omnipaque 350 Contrast volume:100 ml Oral: yes COMPARISON: CT CT CHEST W from 01/12/[address] LOWER EXTREMITY RT W from 02/13/[address] ABDOMEN PELVIS W from 02/13/2024 FINDINGS: CHEST: Pulmonary arteries: Well opacified with contrast. No evidence of emboli. Tracheobronchial tree: Patent. Pulmonary parenchyma: Mild emphysematous changes. No consolidation or dominant measurable mass. Pleura: No effusion or pneumothorax. Lymph nodes: Within normal limits. Aorta: Thoracic portion non-dilated. Heart: Small size. No pericardial effusion. Bones: Unremarkable for age. No lytic or blastic lesions.No compression fractures. Soft tissues: Unremarkable. ABDOMEN and PELVIS: Liver: Normal density. No measurable mass. Gallbladder and biliary tract: No evidence of stones or wall thickening. No biliary dilatation. Pancreas: Normal density, no abnormal calcifications or inflammatory process. Spleen: Normal. Kidneys: Normal size, contour and axis. No radiodense stones. No obstructive uropathy. No suspicious masses seen. Adrenal glands: No masses seen. Aorta: Abdominal portion non-dilated. Lymph nodes: Within normal limits. Soft tissues: A left-sided ostomy now contains a portion of the transverse colon which does not appea r obstructed. Previously noted drainage catheter adjacent to the right ischium is been removed. Posterior abscess w ithin the hamstring muscles remains present common not not fully included in field of view. There is a soft tissue wound posterior upper thigh. Exophytic anal mass peer grossly changed. Soft tissue thic kening medial right gluteal fold. Bladder: Unremarkable. Bowel: No obstruction or bowel wall thickening. Appendix normal. Colostomy again noted. No change in appearance of residual stool/contrast within the rectum. Peritoneal cavity: No ascites. No focal collection. No mesenteric inflammatory response. Bones: Advanced degenerative changes in the spine. Irregularity of the inferior right ischium again n oted. Not significantly changed. Reproductive organs: Bilateral hydroceles. IMPRESSION: No evidence of metastatic disease in the chest. Pressure Luschka of abscess adjacent to the right ischium. Stable cortical irregularity. Right hamstr ing abscess remains present. Not fully included in the field of view. Herniation of a small portion of transverse colon into the left-sided colostomy. RADIATION DOSE DELIVERED: 1,119.12mGy.cm Total DLP DATA REPOSITORY: All CT scans at this facility are submitted to the National Radiology Data Registry (NRDR) Dose Index Registry (DIR) with the [employer] (ACR). RADIATION OPTIMIZATION: All CT scans at this facility use at least one of these dose optimization te chniques: automated exposure control; mA and/or kV adjustment per patient size (includes targeted exa ms where dose is matched to clinical indication); or iterative reconstruction.
[2024-03-31 18:13] LABS: Abs Immature Grans 0.05 10^3/uL (0.0-0.06); Absolute Basophil Count 0.03 10^3/uL (0.0-0.2); Absolute Eosinophil Count 0.33 10^3/uL (0.0-0.7); Absolute Lymphocyte Count 0.51 10^3/uL (1.2-3.4); Absolute Neutrophil Count 6.06 10^3/uL (1.2-6.7); Basophils % 0.4 %; Eosinophils % 4.3 %; Immature Grans % 0.7 %; Lymphocytes % 6.6 %; Monocytes % 9.1 %; Neutrophils % 78.9 %
== END ==
PROVIDERS: PCP Physician Assistant; Visit Provider Internal Medicine Hematology & Oncology
DX: C21.0 Malignant neoplasm of anus, unspecified (principal)
CPT/HCPCS: 74177; 80053; 85027; 71260; 85025

== ENCOUNTER 2024-04-07 08:54 | Outpatient (CLI) | payer MEDICAID, SELFPAY ==
[2024-04-07 08:37] LABS: Abs Immature Grans 0.05 10^3/uL (0.0-0.06); Absolute Basophil Count 0.04 10^3/uL (0.0-0.2); Absolute Eosinophil Count 0.26 10^3/uL (0.0-0.7); Absolute Lymphocyte Count 0.61 10^3/uL (1.2-3.4); Absolute Monocyte Count 0.65 10^3/uL (0.1-0.8); Absolute Neutrophil Count 6.48 10^3/uL (1.2-6.7); Basophils % 0.5 %; Eosinophils % 3.2 %; HCT 39.1 % (40.0-50.0); HGB 12.3 g/dL (13.5-17.5); Immature Grans % 0.6 %; Lymphocytes % 7.5 %; MCH 29.7 pg (27.0-33.0); MCHC 31.5 % (32.0-36.0); MCV 94 fL (80-95); MPV 8.5 fL (8.0-11.0); Neutrophils % 80.2 %; Platelet Count 215 10^3/uL (130-400); RBC 4.14 10^6/uL (4.36-5.78); RDW 16.7 % (11.8-14.1); RDW-SD 58.5 fL; WBC 8.09 10^3/uL (4.4-10.8)
[2024-04-07 08:53] LABS: ALT 28 U/L (16-63); AST 30 U/L (15-37); Albumin 3.4 g/dL (3.4-5.0); Alkaline Phosphatase 111 U/L (46-116); Anion Gap 7.7 mmol/L (3-11); BUN 10 mg/dL (7-18); Bilirubin, Total 0.3 mg/dL (0.2-1.0); CO2 30.3 mmol/L (21.0-32.0); CREATININE 0.8 mg/dL (0.70-1.30); Calcium 9.2 mg/dL (8.5-10.1); Chloride 102 mmol/L (98-107); Estimated GFR 100.06 (mL/min/1.73m2); Glucose 101 mg/dL (74-106); Potassium 4.1 mmol/L (3.5-5.1); Sodium 140 mmol/L (136-145)
== END 2024-04-07 08:55 | disposition home or self-care (01) ==
LOC: LBO 08:55
PROVIDERS: PCP Physician Assistant; Visit Provider Internal Medicine Hematology & Oncology
DX: C21.0 Malignant neoplasm of anus, unspecified (principal)
CPT/HCPCS: 36415; 80053; 85025

== ENCOUNTER 2024-04-20 00:51 | Outpatient (CLI) | payer MEDICAID, SELFPAY ==
[2024-04-20 11:45] LABS: Abs Immature Grans 0.03 10^3/uL (0.0-0.06); Absolute Basophil Count 0.04 10^3/uL (0.0-0.2); Absolute Eosinophil Count 0.28 10^3/uL (0.0-0.7); Absolute Monocyte Count 0.67 10^3/uL (0.1-0.8); Absolute Neutrophil Count 6.58 10^3/uL (1.2-6.7); Basophils % 0.5 %; Eosinophils % 3.4 %; HGB 13.2 g/dL (13.5-17.5); Immature Grans % 0.4 %; Lymphocytes % 8.4 %; MCH 30.1 pg (27.0-33.0); MCHC 32.2 % (32.0-36.0); MCV 93 fL (80-95); MPV 8.7 fL (8.0-11.0); Monocytes % 8.1 %; Neutrophils % 79.2 %; Platelet Count 192 10^3/uL (130-400); RBC 4.39 10^6/uL (4.36-5.78); RDW 15.9 % (11.8-14.1); RDW-SD 54.8 fL
[2024-04-20 12:11] LABS: ALT 28 U/L (16-63); AST 30 U/L (15-37); Albumin 3.5 g/dL (3.4-5.0); Alkaline Phosphatase 103 U/L (46-116); Anion Gap 6.7 mmol/L (3-11); BUN 12 mg/dL (7-18); Bilirubin, Total 0.3 mg/dL (0.2-1.0); CO2 30.3 mmol/L (21.0-32.0); CREATININE 0.8 mg/dL (0.70-1.30); Calcium 9.1 mg/dL (8.5-10.1); Chloride 102 mmol/L (98-107); Estimated GFR 100.06 (mL/min/1.73m2); Glucose 111 mg/dL (74-106); Potassium 4.3 mmol/L (3.5-5.1); Sodium 139 mmol/L (136-145); TSH 3.08 uIU/Ml (0.36-3.74); Total Protein 7.8 g/dL (6.4-8.2)
== END 2024-04-20 00:52 | disposition home or self-care (01) ==
LOC: LBO 00:56
PROVIDERS: PCP Physician Assistant; Visit Provider Internal Medicine Hematology & Oncology
DX: C21.0 Malignant neoplasm of anus, unspecified (principal); Z79.899 Other long term (current) drug therapy
CPT/HCPCS: 36415; 80053; 84439; 84443; 85025

== ENCOUNTER 2024-05-12 02:51 | Outpatient (CLI) | payer MEDICAID, SELFPAY ==
[2024-05-12 08:49] LABS: Abs Immature Grans 0.02 10^3/uL (0.0-0.06); Absolute Basophil Count 0.02 10^3/uL (0.0-0.2); Absolute Eosinophil Count 0.14 10^3/uL (0.0-0.7); Absolute Lymphocyte Count 0.49 10^3/uL (1.2-3.4); Absolute Monocyte Count 0.87 10^3/uL (0.1-0.8); Absolute Neutrophil Count 5.46 10^3/uL (1.2-6.7); Basophils % 0.3 %; HCT 40.7 % (40.0-50.0); HGB 13.2 g/dL (13.5-17.5); Immature Grans % 0.3 %; MCH 29.8 pg (27.0-33.0); MCHC 32.4 % (32.0-36.0); MCV 92 fL (80-95); MPV 8.7 fL (8.0-11.0); Monocytes % 12.4 %; Platelet Count 169 10^3/uL (130-400); RBC 4.43 10^6/uL (4.36-5.78); RDW 15.2 % (11.8-14.1)
[2024-05-12 09:18] LABS: ALT 23 U/L (16-63); AST 31 U/L (15-37); Albumin 3.3 g/dL (3.4-5.0); Alkaline Phosphatase 110 U/L (46-116); Anion Gap 2.9 mmol/L (3-11); BUN 10 mg/dL (7-18); Bilirubin, Total 0.29 mg/dL (0.2-1.0); CO2 33.1 mmol/L (21.0-32.0); Calcium 9.5 mg/dL (8.5-10.1); Chloride 102 mmol/L (98-107); FREE T4 1.19 ng/dL (0.76-1.46); Glucose 97 mg/dL (74-106); Sodium 138 mmol/L (136-145); Total Protein 7.7 g/dL (6.4-8.2)
== END 2024-05-12 02:52 | disposition home or self-care (01) ==
LOC: LBO 02:52
PROVIDERS: PCP Physician Assistant; Visit Provider Internal Medicine Hematology & Oncology
DX: C21.0 Malignant neoplasm of anus, unspecified (principal); Z79.899 Other long term (current) drug therapy
CPT/HCPCS: 36415; 80053; 84439; 84443; 85025

== ENCOUNTER 2024-06-01 07:17 | Outpatient (CLI) | payer MEDICAID, SELFPAY ==
[2024-06-01 12:02] LABS: Abs Immature Grans 0.02 10^3/uL (0.0-0.06); Absolute Basophil Count 0.02 10^3/uL (0.0-0.2); Absolute Eosinophil Count 0.18 10^3/uL (0.0-0.7); Absolute Lymphocyte Count 0.61 10^3/uL (1.2-3.4); Absolute Monocyte Count 0.67 10^3/uL (0.1-0.8); Absolute Neutrophil Count 5.38 10^3/uL (1.2-6.7); Basophils % 0.3 %; Eosinophils % 2.6 %; HCT 38.9 % (40.0-50.0); HGB 12.7 g/dL (13.5-17.5); Immature Grans % 0.3 %; Lymphocytes % 8.9 %; MCH 29.7 pg (27.0-33.0); MCHC 32.6 % (32.0-36.0); MCV 91 fL (80-95); Monocytes % 9.7 %; Neutrophils % 78.2 %; Platelet Count 172 10^3/uL (130-400); RBC 4.27 10^6/uL (4.36-5.78); RDW 14.4 % (11.8-14.1); RDW-SD 48.1 fL; WBC 6.88 10^3/uL (4.4-10.8)
[2024-06-01 12:32] LABS: ALT 19 U/L (16-63); AST 25 U/L (15-37); Albumin 3.2 g/dL (3.4-5.0); Alkaline Phosphatase 106 U/L (46-116); BUN 10 mg/dL (7-18); Bilirubin, Total 0.37 mg/dL (0.2-1.0); CREATININE 0.9 mg/dL (0.70-1.30); Calcium 9.3 mg/dL (8.5-10.1); Chloride 102 mmol/L (98-107); Estimated GFR 96.57 (mL/min/1.73m2); FREE T4 1.53 ng/dL (0.76-1.46); Glucose 110 mg/dL (74-106); Potassium 4.2 mmol/L (3.5-5.1); Sodium 138 mmol/L (136-145); TSH 0.55 uIU/Ml (0.36-3.74); Total Protein 7.3 g/dL (6.4-8.2)
== END 2024-06-01 07:18 | disposition home or self-care (01) ==
LOC: LBO 07:18
PROVIDERS: PCP Physician Assistant; Visit Provider Internal Medicine Hematology & Oncology
DX: C21.0 Malignant neoplasm of anus, unspecified (principal); Z79.899 Other long term (current) drug therapy
CPT/HCPCS: 36415; 80053; 84439; 84443; 85025

== ENCOUNTER 2024-06-19 02:40 | Outpatient (CLI) | payer MEDICAID, SELFPAY ==
--- NOTE | 2024-06-19 | DI.CT_ITS ---
Exam(s) CT CHEST/ABD/PEL W EXAM: CT CHEST/ABD/PEL W CLINICAL HISTORY: ANAL CANCER, C21.0. TECHNIQUE: Imaging Protocol: Axial computed tomography images with coronal and sagittal reformatted images were created and reviewed CONTRAST MATERIAL: Intravenous: Omnipaque 350 Contrast volume:100 ml Oral: Yes. Oral contrast was also administered for bowel opacification COMPARISON: CT CT CHEST/ABD/PEL W from 03/31/2024 FINDINGS: CHEST: LUNGS: There is a small 4 mm nodular infiltrate in the left upper lobe (series 13/image 48), unchange d. There are no new metastatic appearing nodules in the lung conner. No new confluent infiltrates a nd there are no pleural effusions. There are benign-appearing increased markings in the posterior ba iggy segment of the right lower lobe, possibly developing infiltrate. There are no pleural effusions. No significant findings in the trachea and mainstem bronchi. Bilateral hyperinflation again noted. MEDIASTINUM: There is no hilar nor mediastinal adenopathy. Visualized thyroid unremarkable. CARDIAC: Heart size is normal. There is no pericardial effusion.Caliber of the thoracic aorta is wit hin normal limits. OSSEOUS: No significant osseous lesions.. ABDOMEN: There is no ascites. LIVER: There are no focal hepatic lesions nor dilatation of intrahepatic ducts. GALLBLADDER/BILIARY: No obvious gallbladder pathology. CBD diameter is upper normal. PANCREAS: No evidence of pancreatic mass nor dilatation of the pancreatic duct. SPLEEN: Spleen is not enlarged. There are no intrasplenic lesions. Splenic and portal veins are fraire nt. ADRENALS: New significant adrenal masses. KIDNEYS: No calculi nor hydronephrosis. No solid renal masses. Unchanged benign cyst in the lateral c ortex of the right kidney is again noted. This measures 1.9 x 1.4 cm. Does not require further inve stigation. ABDOMINAL AORTA: Abdominal aorta is not enlarged. LYMPH NODES: There is no retroperitoneal nor paraaortic adenopathy. ABDOMINAL WALL: Left-sided ostomy again noted and appears unchanged. GI: There is no evidence of bowel obstruction. Again noted is the prominent extrinsic polypoid mass coming off the left side of the anus and project ing between the buttocks. There is also again noted symmetrical circumferential thickening of the wa ll of the rectum. No obstruction evident at this level. PELVIS: LYMPH NODES: There is no intrapelvic nor inguinal adenopathy. GI: No evidence of appendicitis.No evidence of sigmoid diverticulitis. URINARY BLADDER: No calculi nor masses evident REPRODUCTIVE: Prostate not enlarged. Seminal vesicles unremarkable. OSSEOUS: There is an unchanged nonexpansile sclerotic bone lesion in the right iliac wing again noted . Probably benign bone island. No lytic osseous lesions evident. No fractures. Multilevel degener ative disc disease again noted. OTHER: The previously described peripherally enhancing abscess in the right hamstrings muscle group i s again noted. It is only partially included in the field of view. It appears to be slightly smalle r than previous but difficult to assess accurately as it is not included completely in the field of v iew. No other abscesses evident. IMPRESSION: 1. No evidence of new metastatic disease in the chest nor intrathoracic adenopathy. Mild increased m arkings are noted in the posterior basal segment of the right lower lobe which may be early developin g infiltrate. There are no pleural effusions. 2. No evidence of liver metastases nor metastatic lesions elsewhere in the abdomen and no evidence of ascites nor omental caking. 3. Again noted is the previously present prominent extrinsic polypoid mass emanating off of the left side of the anus and extending between the buttocks. Also unchanged circumferential thickening of th e rectum. No obvious intrapelvic lymphadenopathy. Left-sided ostomy appears stable and there is no evidence of bowel obstruction nor free air. 4. Abscess is again noted in the right hamstrings. It is only partially included in the field of vie w of this study but appears slightly smaller than previous. If clinically indicated repeat CT scan t o cover this area can be performed. RADIATION DOSE DELIVERED: Total DLP DATA REPOSITORY: All CT scans at this facility are submitted to the National Radiology Data Registry (NRDR) Dose Index Registry (DIR) with the [employer] (ACR). RADIATION OPTIMIZATION: All CT scans at this facility use at least one of these dose optimization te chniques: automated exposure control; mA and/or kV adjustment per patient size (includes targeted exa ms where dose is matched to clinical indication); or iterative reconstruction.
[2024-06-19 12:18] LABS: Abs Immature Grans 0.03 10^3/uL (0.0-0.06); Absolute Basophil Count 0.02 10^3/uL (0.0-0.2); Absolute Lymphocyte Count 0.43 10^3/uL (1.2-3.4); Absolute Monocyte Count 0.65 10^3/uL (0.1-0.8); Absolute Neutrophil Count 4.82 10^3/uL (1.2-6.7); Basophils % 0.3 %; Eosinophils % 3.3 %; HCT 38.1 % (40.0-50.0); HGB 12.5 g/dL (13.5-17.5); Immature Grans % 0.5 %; MCH 29.6 pg (27.0-33.0); MCHC 32.8 % (32.0-36.0); MCV 90 fL (80-95); MPV 9.3 fL (8.0-11.0); Monocytes % 10.6 %; Neutrophils % 78.3 %; Platelet Count 173 10^3/uL (130-400); RBC 4.22 10^6/uL (4.36-5.78); RDW 14.3 % (11.8-14.1); RDW-SD 47.6 fL; WBC 6.15 10^3/uL (4.4-10.8)
[2024-06-19 12:42] LABS: ALT 17 U/L (16-63); AST 27 U/L (15-37); Albumin 3.3 g/dL (3.4-5.0); Alkaline Phosphatase 103 U/L (46-116); Anion Gap 5.7 mmol/L (3-11); BUN 11 mg/dL (7-18); Bilirubin, Total 0.43 mg/dL (0.2-1.0); CO2 30.3 mmol/L (21.0-32.0); CREATININE 0.9 mg/dL (0.70-1.30); Calcium 9.3 mg/dL (8.5-10.1); Chloride 101 mmol/L (98-107); Estimated GFR 96.57 (mL/min/1.73m2); FREE T4 1.55 ng/dL (0.76-1.46); Glucose 97 mg/dL (74-106); Potassium 3.8 mmol/L (3.5-5.1); Sodium 137 mmol/L (136-145); TSH 0.17 uIU/Ml (0.36-3.74); Total Protein 7.6 g/dL (6.4-8.2)
[2024-06-19] MEDS: Omnipaque 350 MG/ML 100 ML BTL IJ (14:16)
[2024-06-19] MEDS: Normal Saline - Diluent 50 ML VIAL IJ (14:16)
== END 2024-06-19 03:00 ==
LOC: DI 02:41
PROVIDERS: PCP Physician Assistant; Visit Provider Internal Medicine Hematology & Oncology
DX: C21.0 Malignant neoplasm of anus, unspecified (principal); Z79.899 Other long term (current) drug therapy; L02.415 Cutaneous abscess of right lower limb
CPT/HCPCS: 74177; 80053; 71260; 84439; 84443; 85025; J3490

== ENCOUNTER 2024-07-14 01:21 | Outpatient (CLI) | payer MEDICAID, SELFPAY ==
[2024-07-14 12:16] LABS: Abs Immature Grans 0.03 10^3/uL (0.0-0.06); Absolute Basophil Count 0.02 10^3/uL (0.0-0.2); Absolute Eosinophil Count 0.24 10^3/uL (0.0-0.7); Absolute Lymphocyte Count 0.54 10^3/uL (1.2-3.4); Absolute Monocyte Count 0.68 10^3/uL (0.1-0.8); Absolute Neutrophil Count 6.01 10^3/uL (1.2-6.7); Basophils % 0.3 %; Eosinophils % 3.2 %; HCT 35.4 % (40.0-50.0); HGB 11.5 g/dL (13.5-17.5); Immature Grans % 0.4 %; Lymphocytes % 7.2 %; MCH 29.8 pg (27.0-33.0); MCHC 32.5 % (32.0-36.0); MCV 92 fL (80-95); MPV 8.9 fL (8.0-11.0); Neutrophils % 79.9 %; Platelet Count 185 10^3/uL (130-400); RBC 3.86 10^6/uL (4.36-5.78); RDW 15.1 % (11.8-14.1); WBC 7.52 10^3/uL (4.4-10.8)
[2024-07-14 12:45] LABS: ALT 14 U/L (16-63); AST 23 U/L (15-37); Albumin 3.1 g/dL (3.4-5.0); Alkaline Phosphatase 111 U/L (46-116); Anion Gap 4.1 mmol/L (3-11); BUN 8 mg/dL (7-18); CO2 31.9 mmol/L (21.0-32.0); CREATININE 0.7 mg/dL (0.70-1.30); Chloride 102 mmol/L (98-107); Estimated GFR 104.18 (mL/min/1.73m2); FREE T4 0.89 ng/dL (0.76-1.46); Glucose 105 mg/dL (74-106); Potassium 3.7 mmol/L (3.5-5.1); Sodium 138 mmol/L (136-145); Total Protein 7.3 g/dL (6.4-8.2)
== END 2024-07-14 01:22 | disposition home or self-care (01) ==
LOC: LBO 01:21
PROVIDERS: PCP Physician Assistant; Visit Provider Internal Medicine Hematology & Oncology
DX: C21.0 Malignant neoplasm of anus, unspecified (principal); Z79.899 Other long term (current) drug therapy
CPT/HCPCS: 36415; 80053; 84439; 84443; 85025

== ENCOUNTER 2024-07-25 11:31 | Emergency (ER) | payer MEDICAID, SELFPAY ==
[2024-07-25 11:25] VITALS: BP 116/65; PULSE 77; RESP 18; TEMP 36.9; O2SAT 94
--- NOTE | 2024-07-25 11:33 | W.ED.GENAD ---
Discharge Plan Disposition Patient Disposition: Home Discharge Details Clinical Impression: Infestation by maggots, Skin ulcer of perineum with fat layer exposed Primary Care Provider: Sha Ramos ED Provider: Christian Kaplan [place] Meds and New Rx's Prescriptions: Continued metronidazole 500 mg tablet 500 mg PO TID levofloxacin 750 mg tablet 750 mg PO DAILY acetaminophen 325 mg tablet 1,000 mg PO TID Qty: 300 12RF Lactobacillus acidoph-L.bulgar [Floranex] 100 million cell granules in packet 1 packet PO DAILY Qty: 30 6RF lidocaine 5 % cream 1 applic topical TID PRN (Reason: pain) Qty: 30 3RF lidocaine HCl [Glydo] 2 % jelly in applicator 1 applic topical QD-TID PRN (Reason: pain) Qty: 250 4RF levothyroxine 13 mcg capsule 13 mcg PO DAILY polyethylene glycol 3350 17 gram powder in packet 17 g PO HS Qty: 325 12RF oxycodone 15 mg tablet 15 mg PO .3h MDD 8 pills PRN (Reason: pain) Qty: 240 0RF Rx Instructions: Note new FIll date (replacing another script I just sent in to fill on or after 05/17/2024) Xtampza ER 36 mg cap,sprinkl,ER12hr(DONT CRUSH) 36 mg PO BID MDD 2 pills Qty: 60 0RF Rx Instructions: must administer with a meal/food hydromorphone 4 mg tablet 4 mg PO Q4H MDD 6 pills PRN (Reason: pain) Qty: 30 0RF oxycodone 15 mg tablet 15 - 30 mg PO Q4H MDD 8 pills PRN (Reason: pain) Qty: 240 0RF apixaban 5 mg tablet 5 mg PO BID Qty: 60 12RF Rx Instructions: Start 5/2 levofloxacin 500 mg tablet 500 mg PO DAILY 365 Days Qty: 30 12RF lidocaine HCl 4 % cream 1 applic topical Q4H PRN PRN levofloxacin 750 mg tablet 750 mg PO DAILY Patient Comments: TAKE ONE TABLET BY MOUTH EVERY DAY- picked up but never started docusate sodium [Colace] 100 mg Capsule 100 mg PO TID Qty: 90 12RF Dakin's Solution 0.5 % Solution 473 ml topical DIRECTED Qty: 473 12RF Rx Instructions: daily dressing changes Discharge Instructions Additional Instructions: You were seen in the emergency department for your wound which was infested with maggots. The maggots were removed. Please continue taking your antibiotics as previously scheduled. Please follow-up with the wound care team later this month in [place]. Please return to the emergency department if you develop fevers worsening pain or if you take any falls. Discharge Data Discharge Date/Time-TO BE ENTERED AT DEPARTURE: 07/25/24 13:04 HPI General Date/Time Provider Initiated Documentation: 07/25/24 11:33. HPI Narrative: MDM This is a chronically ill-appearing normothermic and not tachycardic 63-year-old male with anal cell carcinoma with significant skin ulcer of the perineum with exposed fat and maggots for which patient will undergo bedside wound cleaning with nurse and maggot debridement. No fluctuance to suggest abscess. I spoke with Dr. Driver from general surgery as she was familiar to the patient's case. She advised against MRI and advised that the patient is appropriate for empiric trial of discharge with expectant outpatient management if he did not have leukocytosis and had reassuring vital signs. I met with the patient and he felt improved. He has outpatient wound care [place] [facility] [place]. He had no pain out of proportion to suggest necrotizing soft tissue infection. He had no lower extremity weakness to suggest progression of his anal carcinoma. No dysuria no frequency to suggest UTI. No falls to suggest increased risk for pelvic fracture. No shortness of breath to suggest PE. I initially ordered blood cultures and broad-spectrum antibiotics however there did not seem to be any signs of superimposed cellulitis at this point in time so I cancelled the abx. I was not suspicious for sepsis so I did not order a lactate. No chest pain to suggest ACS I did not obtain an ECG nor send a troponin. Patient is well-connected with outpatient home health. We discussed return indications in the ED including fevers inability tolerate his p.o. antibiotics or any other concerns. He understood his return indications and was discharged with empiric trial of expectant outpatient management. Chronic conditions affecting the care of the patient: anal carcinoma History obtained from an outside historian: N/A External record review: [facility] [place] Medications: N/A Social determinants of health affecting disposition: N/A Management discussed with: General Surgery Treatment/interventions considered: N/A Response to therapies provided: Improved symptoms following maggot debridement HPI This is a 63-year-old male with history of squamous cell anal carcinoma and significant ulcer with exposed fat in his perineum and pelvic chronic osteomyelitis now in the emergency department in the setting of maggots in his wound. Patient reports that his wounds been present for the past year. He noticed the maggots this morning and his home health nurse confirmed. He has chronic pains in his sacral wound but this has not worsened. He has not taken any falls. He has not been nauseous or vomiting. He has been adherent with his home oral antibiotics. He takes levofloxacin and metronidazole. No dysuria nor frequency. No chest pain or shortness of breath. He denies fevers and has not felt an significant change in his health. Exam General: Cachectic-appearing in no acute distress speaking in complete sentences. Head: Normocephalic, atraumatic. Eye: Extraocular eye movements intact. No conjunctival injection. No scleral icterus. Ear, nose, mouth, throat: Grossly normal inspection. Normal voice, handling secretions normally. Neck: Trachea midline. Cardiovascular: Well-perfused distal extremities. Respiratory: Nonlabored respiration. Gastrointestinal: Nondistended abdomen. Musculoskeletal: No edema. Moving all 4 extremities spontaneously. : In the patient's perineum there is a large fungating wound with maggots. No significant surrounding erythema. No fluctuance. Wound is foul-smelling. There is no drainage. Photo of wound as follows: Skin: Normal for age and race, grossly normal temperature and turgor. No acute rash. Neurologic: Alert and appropriate, no apparent acute deficits. Psychiatric: Mood and manner are appropriate. Grooming and personal hygiene are appropriate. Related Data Home Medications ?Medication ?Instructions ?Recorded ?Confirmed lidocaine HCl 4 % topical cream 1 applic topical Q4H PRN PRN 12/03/23 07/18/24 oxycodone 15 mg tablet 15 - 30 mg (1 - 2 x 15 mg) PO Q4H 12/14/23 07/18/24 PRN pain #240 tabs levofloxacin 750 mg tablet 750 mg PO DAILY 02/13/24 07/18/24 docusate sodium 100 mg capsule 100 mg PO TID #90 caps 02/18/24 07/18/24 (Colace) sodium hypochlorite 0.5 % solution 473 ml topical DIRECTED #473 mL 02/18/24 07/18/24 (Dakin's Solution) levofloxacin 750 mg tablet 750 mg PO DAILY 03/07/24 07/18/24 metronidazole 500 mg tablet 500 mg PO TID 03/07/24 07/18/24 apixaban 5 mg tablet 5 mg PO BID DVT #60 tabs 03/09/24 07/18/24 levofloxacin 500 mg tablet 500 mg PO DAILY 365 days #30 tabs 03/23/24 07/18/24 Lactobacillus acidophilus, 1 packet PO DAILY director global medical affairs abx 04/18/24 07/18/24 bulgaricus 100 million cell use #30 ea granules packet (Floranex) acetaminophen 325 mg tablet 1,000 mg (3.0769 x 325 mg) PO TID 04/18/24 07/18/24 #300 tabs lidocaine 5 % topical cream 1 applic topical TID PRN pain #30 06/20/24 07/18/24 grams lidocaine HCl 2 % mucosal jelly in 1 applic topical QD-TID PRN pain 06/20/24 07/18/24 applicator (Glydo) #250 mL hydromorphone 4 mg tablet 4 mg PO Q4H PRN pain #30 tabs 07/18/24 07/18/24 levothyroxine 13 mcg capsule 13 mcg PO DAILY 07/18/24 07/18/24 oxycodone 15 mg tablet 15 mg PO .3h PRN pain #240 tabs 07/18/24 07/18/24 oxycodone myristate 36 mg capsule 36 mg PO BID #60 caps 07/18/24 07/18/24 sprinkle extended release 12hr(DON'T CRUSH) (Xtampza ER) polyethylene glycol 3350 17 gram 17 g PO HS #325 ea 07/18/24 07/18/24 oral powder packet Previous Rx's ?Medication ?Instructions ?Recorded oxycodone 15 mg tablet 15 - 30 mg (1 - 2 x 15 mg) PO Q4H 12/14/23 PRN pain #240 tabs docusate sodium 100 mg capsule 100 mg PO TID #90 caps 02/18/24 (Colace) sodium hypochlorite 0.5 % solution 473 ml topical DIRECTED #473 mL 02/18/24 (Dakin's Solution) apixaban 5 mg tablet 5 mg PO BID DVT #60 tabs 03/09/24 levofloxacin 500 mg tablet 500 mg PO DAILY 365 days #30 tabs 03/23/24 Lactobacillus acidophilus, 1 packet PO DAILY senior living abx 04/18/24 bulgaricus 100 million cell use #30 ea granules packet (Floranex) acetaminophen 325 mg tablet 1,000 mg (3.0769 x 325 mg) PO TID 04/18/24 #300 tabs lidocaine 5 % topical cream 1 applic topical TID PRN pain #30 06/20/24 grams lidocaine HCl 2 % mucosal jelly in 1 applic topical QD-TID PRN pain 06/20/24 applicator (Glydo) #250 mL hydromorphone 4 mg tablet 4 mg PO Q4H PRN pain #30 tabs 07/18/24 oxycodone 15 mg tablet 15 mg PO .3h PRN pain #240 tabs 07/18/24 oxycodone myristate 36 mg capsule 36 mg PO BID #60 caps 07/18/24 sprinkle extended release 12hr(DON'T CRUSH) (Xtampza ER) polyethylene glycol 3350 17 gram 17 g PO HS #325 ea 07/18/24 oral powder packet Allergies Allergy/AdvReac Type Severity Reaction Status Date / Time No Known Allergies Allergy Verified 07/18/24 08:40 General Stated Complaint: GenMedical WENDY: 4 Course Vital Signs Vital signs: Vital Signs Temperature 36.9 C 07/25/24 11:25 Pulse 77 07/25/24 11:25 Respiratory Rate 18 07/25/24 11:25 Blood Pressure 116/65 07/25/24 11:25 Pulse Oximetry 94 07/25/24 11:25 Temperature 36.9 C 07/25/24 11:25 Pulse 77 07/25/24 11:25 Respiratory Rate 18 07/25/24 11:25 Blood Pressure 116/65 07/25/24 11:25 Pulse Oximetry 94 07/25/24 11:25 Pain Level 3 07/25/24 11:25 Medical Decision Making Quality:SDOH Health Related Social Needs: Health related social needs details patient unable to participate at this time in page 2 assessment PFSH All Active Problems Skin ulcer of perineum with fat layer exposed (Acute) Infestation by maggots (Acute) Abscess of leg without foot, left (Acute) Acute DVT (deep venous thrombosis) (Acute) Osteomyelitis, pelvis (Acute) Metastatic cancer (Acute) 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) Housing insecurity (Acute) Food insecurity (Acute) 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 COPD (chronic obstructive pulmonary disease) (Chronic) Hypoalbuminemia due to protein-calorie malnutrition (Acute) Microcytic anemia (Acute) Smoker (Acute) Medical History ETOH abuse Resolved February 2023 Status post radiation therapy Family History Other Cancer Social History Smoking/Tobacco Use Status: Current every day Tobacco Type: cigarettes Smoking risk assessment performed?: Yes Alcohol Intake: former Drug use: Rarely Substance use type: marijuana Housing: apartment Do you feel safe at home: Yes Do you feel safe in your relationship?: Yes
[2024-07-25 12:26] LABS: Abs Immature Grans 0.08 10^3/uL (0.0-0.06); Absolute Basophil Count 0.03 10^3/uL (0.0-0.2); Absolute Eosinophil Count 0.23 10^3/uL (0.0-0.7); Absolute Lymphocyte Count 0.46 10^3/uL (1.2-3.4); Absolute Monocyte Count 0.71 10^3/uL (0.1-0.8); Basophils % 0.3 %; ESR 29 mm/hr (0-20); Eosinophils % 2.6 %; HCT 36.9 % (40.0-50.0); HGB 11.8 g/dL (13.5-17.5); Immature Grans % 0.9 %; Lymphocytes % 5.2 %; MCV 94 fL (80-95); MPV 9.1 fL (8.0-11.0); Monocytes % 8.1 %; Neutrophils % 82.9 %; Platelet Count 208 10^3/uL (130-400); RBC 3.93 10^6/uL (4.36-5.78); RDW 15.2 % (11.8-14.1); RDW-SD 52.8 fL; WBC 8.81 10^3/uL (4.4-10.8)
[2024-07-25 12:37] LABS: Anion Gap 4.3 mmol/L (3-11); BUN 12 mg/dL (7-18); CO2 31.7 mmol/L (21.0-32.0); CREATININE 0.9 mg/dL (0.70-1.30); Calcium 9.3 mg/dL (8.5-10.1); Chloride 102 mmol/L (98-107); Estimated GFR 96.57 (mL/min/1.73m2); Glucose 98 mg/dL (74-106); Potassium 3.9 mmol/L (3.5-5.1); Sodium 138 mmol/L (136-145)
[2024-07-25 12:38] LABS: C-Reactive Protein < 0.50 mg/dL (<or=0.5)
[2024-07-25 12:54] VITALS: BP 100/57; PULSE 71; RESP 16; TEMP 36.8; O2SAT 99
== END 2024-07-25 13:04 | disposition home or self-care (01) ==
PROVIDERS: Emergency Provider Emergency Medicine; PCP Physician Assistant
DX: L98.492 Non-pressure chronic ulcer of skin of other sites with fat layer exposed (principal); B87.0 Cutaneous myiasis; C21.0 Malignant neoplasm of anus, unspecified; J44.9 Chronic obstructive pulmonary disease, unspecified; F17.210 Nicotine dependence, cigarettes, uncomplicated; Z86.73 Personal history of transient ischemic attack (TIA), and cerebral infarction without residual deficits; Z79.01 Long term (current) use of anticoagulants
CPT/HCPCS: 80048; 85652; 87040; 99283; 85025; 86140

== ENCOUNTER 2024-08-04 02:38 | Outpatient (CLI) | payer MEDICAID, SELFPAY ==
[2024-08-04 10:17] LABS: Abs Immature Grans 0.06 10^3/uL (0.0-0.06); Absolute Basophil Count 0.04 10^3/uL (0.0-0.2); Absolute Eosinophil Count 0.19 10^3/uL (0.0-0.7); Absolute Lymphocyte Count 0.49 10^3/uL (1.2-3.4); Absolute Monocyte Count 0.68 10^3/uL (0.1-0.8); Absolute Neutrophil Count 7.92 10^3/uL (1.2-6.7); Basophils % 0.4 %; HCT 40.3 % (40.0-50.0); HGB 12.8 g/dL (13.5-17.5); Immature Grans % 0.6 %; Lymphocytes % 5.2 %; MCHC 31.8 % (32.0-36.0); MCV 94 fL (80-95); MPV 8.8 fL (8.0-11.0); Monocytes % 7.2 %; Neutrophils % 84.6 %; Platelet Count 213 10^3/uL (130-400); RBC 4.27 10^6/uL (4.36-5.78); RDW 15.5 % (11.8-14.1); RDW-SD 54.1 fL; WBC 9.38 10^3/uL (4.4-10.8)
[2024-08-04 10:47] LABS: ALT 14 U/L (16-63); AST 22 U/L (15-37); Albumin 3.4 g/dL (3.4-5.0); Alkaline Phosphatase 104 U/L (46-116); Anion Gap 5.6 mmol/L (3-11); BUN 10 mg/dL (7-18); Bilirubin, Total 0.32 mg/dL (0.2-1.0); CO2 30.4 mmol/L (21.0-32.0); CREATININE 0.9 mg/dL (0.70-1.30); Calcium 9.2 mg/dL (8.5-10.1); Chloride 101 mmol/L (98-107); Estimated GFR 96.57 (mL/min/1.73m2); FREE T4 0.59 ng/dL (0.76-1.46); Glucose 99 mg/dL (74-106); Potassium 4.3 mmol/L (3.5-5.1); Sodium 137 mmol/L (136-145); TSH 25.88 uIU/Ml (0.36-3.74)
== END 2024-08-04 02:39 | disposition home or self-care (01) ==
LOC: LBO 02:39
PROVIDERS: PCP Physician Assistant; Visit Provider Internal Medicine Hematology & Oncology
DX: C21.0 Malignant neoplasm of anus, unspecified (principal); Z79.899 Other long term (current) drug therapy
CPT/HCPCS: 36415; 80053; 84439; 84443; 85025

== ENCOUNTER 2024-08-25 09:42 | Outpatient (CLI) | payer MEDICAID, SELFPAY ==
[2024-08-25 09:56] LABS: Abs Immature Grans 0.04 10^3/uL (0.0-0.06); Absolute Basophil Count 0.05 10^3/uL (0.0-0.2); Absolute Eosinophil Count 0.34 10^3/uL (0.0-0.7); Absolute Lymphocyte Count 0.46 10^3/uL (1.2-3.4); Absolute Monocyte Count 0.66 10^3/uL (0.1-0.8); Absolute Neutrophil Count 6.55 10^3/uL (1.2-6.7); Basophils % 0.6 %; Eosinophils % 4.2 %; HGB 12.7 g/dL (13.5-17.5); Immature Grans % 0.5 %; Lymphocytes % 5.7 %; MCH 30.4 pg (27.0-33.0); MCHC 31.8 % (32.0-36.0); MCV 96 fL (80-95); MPV 8.8 fL (8.0-11.0); Monocytes % 8.1 %; Neutrophils % 80.9 %; Platelet Count 182 10^3/uL (130-400); RBC 4.18 10^6/uL (4.36-5.78); RDW 15.4 % (11.8-14.1); RDW-SD 53.8 fL
[2024-08-25 10:23] LABS: ALT 16 U/L (16-63); AST 33 U/L (15-37); Albumin 3.4 g/dL (3.4-5.0); Alkaline Phosphatase 105 U/L (46-116); Anion Gap 6.3 mmol/L (3-11); BUN 10 mg/dL (7-18); Bilirubin, Total 0.33 mg/dL (0.2-1.0); CO2 31.7 mmol/L (21.0-32.0); CREATININE 0.9 mg/dL (0.70-1.30); Calcium 9.2 mg/dL (8.5-10.1); Chloride 102 mmol/L (98-107); Estimated GFR 96.57 (mL/min/1.73m2); FREE T4 0.55 ng/dL (0.76-1.46); Glucose 96 mg/dL (74-106); Potassium 3.9 mmol/L (3.5-5.1); Sodium 140 mmol/L (136-145); TSH 54.85 uIU/mL (0.36-3.74); Total Protein 7.8 g/dL (6.4-8.2)
== END 2024-08-25 09:43 | disposition home or self-care (01) ==
LOC: LBO 09:42
PROVIDERS: PCP Physician Assistant; Visit Provider Internal Medicine Hematology & Oncology
DX: C21.0 Malignant neoplasm of anus, unspecified (principal); Z79.899 Other long term (current) drug therapy
CPT/HCPCS: 36415; 80053; 84439; 84443; 85025

== ENCOUNTER 2024-09-04 01:26 | Outpatient (CLI) | payer MEDICAID, SELFPAY ==
--- NOTE | 2024-09-04 | DI.CT_ITS ---
Exam(s) CT CHEST/ABD/PEL W EXAM: CT CHEST/ABD/PEL W CLINICAL HISTORY: ANAL CANCER C21.0 PERSISTANT DESPITE CHEMO/RT, PELVIC ABSCESS. TECHNIQUE: Imaging Protocol: Axial computed tomography images with coronal and sagittal reformatted images were created and reviewed. Computer aided detection (CAD) was utilized. CONTRAST MATERIAL: Intravenous: Omnipaque 350 Contrast volume:100 ml Oral: yes / COMPARISON: CT CT CHEST/ABD/PEL W from 06/19/2024 FINDINGS: CHEST: Tracheobronchial tree: Patent. Pulmonary parenchyma: No consolidation or dominant measurable mass. Stable small area of nodularity in the left upper lobe medially. Underlying emphysematous changes. Pleura: No effusion or pneumothorax. Mediastinum: Within normal limits. Aorta: Thoracic portion non-dilated. Pulmonary arteries: No visible emboli. Heart: No pericardial effusion. Bones: Unremarkable for age. No lytic or blastic lesions.No compression fractures. Soft tissues: Unremarkable. ABDOMEN and PELVIS: Liver: Normal density. No measurable mass. Gallbladder and biliary tract: No evidence of stones or wall thickening. No biliary dilatation. Pancreas: Normal density, no abnormal calcifications or inflammatory process. Spleen: Normal. Kidneys: Normal size, contour and axis. No radiodense stones. No obstructive uropathy. No suspicious masses seen. Adrenal glands: No masses seen. Aorta: Abdominal portion non-dilated. Lymph nodes: Within normal limits. Soft tissues: Left-sided ostomy again noted. Decrease in size of previously noted left hamstring abs cess with residual collection measuring 15 by 7 by 3.7 cm. No new abscesses. Scrotal skin thickening and a edema. Right sided epididymi cyst versus hydrocele. Bladder: Unremarkable. Bowel: No obstruction or bowel wall thickening. Polypoid anal mass again noted. The crown frontal thickening of the lower rectum appears stable. Peritoneal cavity: No ascites. No focal collection. No mesenteric inflammatory response. No free air. Bones: Unremarkable for age. Reproductive organs: Within normal limits. IMPRESSION: No stable appearance of a no mass and lower rectal wall thickening. Decreased size of right hamstring abscess. No new findings. RADIATION DOSE DELIVERED: 316.31mGy.cm Total DLP DATA REPOSITORY: All CT scans at this facility are submitted to the National Radiology Data Registry (NRDR) Dose Index Registry (DIR) with the [employer] (ACR). RADIATION OPTIMIZATION: All CT scans at this facility use at least one of these dose optimization te chniques: automated exposure control; mA and/or kV adjustment per patient size (includes targeted exa ms where dose is matched to clinical indication); or iterative reconstruction.
[2024-09-04 08:27] LABS: Abs Immature Grans 0.04 10^3/uL (0.0-0.06); Absolute Basophil Count 0.05 10^3/uL (0.0-0.2); Absolute Lymphocyte Count 0.64 10^3/uL (1.2-3.4); Absolute Monocyte Count 0.73 10^3/uL (0.1-0.8); Absolute Neutrophil Count 6.68 10^3/uL (1.2-6.7); Basophils % 0.6 %; Eosinophils % 5.8 %; HCT 40.8 % (40.0-50.0); HGB 13.2 g/dL (13.5-17.5); Immature Grans % 0.5 %; Lymphocytes % 7.4 %; MCH 30.2 pg (27.0-33.0); MCHC 32.4 % (32.0-36.0); MCV 93 fL (80-95); MPV 8.7 fL (8.0-11.0); Monocytes % 8.4 %; Neutrophils % 77.3 %; Platelet Count 227 10^3/uL (130-400); RBC 4.37 10^6/uL (4.36-5.78); RDW 14.8 % (11.8-14.1); RDW-SD 51.6 fL; WBC 8.64 10^3/uL (4.4-10.8)
[2024-09-04 08:52] LABS: ALT 17 U/L (16-63); AST 32 U/L (15-37); Albumin 3.4 g/dL (3.4-5.0); Alkaline Phosphatase 113 U/L (46-116); Anion Gap 7.4 mmol/L (3-11); BUN 8 mg/dL (7-18); Bilirubin, Total 0.26 mg/dL (0.2-1.0); CO2 31.6 mmol/L (21.0-32.0); CREATININE 0.9 mg/dL (0.70-1.30); Calcium 9.2 mg/dL (8.5-10.1); Chloride 101 mmol/L (98-107); Estimated GFR 96.57 (mL/min/1.73m2); FREE T4 0.68 ng/dL (0.76-1.46); Glucose 90 mg/dL (74-106); Potassium 3.5 mmol/L (3.5-5.1); Sodium 140 mmol/L (136-145); TSH 62.26 uIU/mL (0.36-3.74); Total Protein 8.5 g/dL (6.4-8.2)
[2024-09-04] MEDS: Normal Saline - Diluent 50 ML VIAL IJ (09:04)
[2024-09-04] MEDS: Omnipaque 350 MG/ML 500 ML BTL-Imaging package 100 ML IJ (09:06)
== END 2024-09-04 01:46 ==
LOC: DI 01:26
PROVIDERS: PCP Physician Assistant; Visit Provider Internal Medicine Hematology & Oncology
DX: C21.0 Malignant neoplasm of anus, unspecified (principal)
CPT/HCPCS: 74177; 80053; 71260; 84439; 84443; 85025

== ENCOUNTER 2024-09-14 08:44 | Outpatient (CLI) | payer MEDICAID, SELFPAY ==
[2024-09-14 08:54] LABS: Abs Immature Grans 0.09 10^3/uL (0.0-0.06); Absolute Basophil Count 0.06 10^3/uL (0.0-0.2); Absolute Eosinophil Count 0.63 10^3/uL (0.0-0.7); Absolute Lymphocyte Count 0.66 10^3/uL (1.2-3.4); Absolute Monocyte Count 0.87 10^3/uL (0.1-0.8); Absolute Neutrophil Count 8.74 10^3/uL (1.2-6.7); Basophils % 0.5 %; Eosinophils % 5.7 %; HCT 42.8 % (40.0-50.0); HGB 13.9 g/dL (13.5-17.5); Immature Grans % 0.8 %; MCH 30.3 pg (27.0-33.0); MCHC 32.5 % (32.0-36.0); MCV 93 fL (80-95); MPV 8.4 fL (8.0-11.0); Monocytes % 7.9 %; Neutrophils % 79.1 %; Platelet Count 224 10^3/uL (130-400); RBC 4.59 10^6/uL (4.36-5.78); RDW 14.3 % (11.8-14.1); RDW-SD 49.1 fL; WBC 11.05 10^3/uL (4.4-10.8)
[2024-09-14 09:28] LABS: ALT 13 U/L (16-63); AST 22 U/L (15-37); Albumin 3.4 g/dL (3.4-5.0); Alkaline Phosphatase 110 U/L (46-116); Anion Gap 5.4 mmol/L (3-11); BUN 9 mg/dL (7-18); Bilirubin, Total 0.36 mg/dL (0.2-1.0); CO2 32.6 mmol/L (21.0-32.0); Calcium 9.6 mg/dL (8.5-10.1); Chloride 101 mmol/L (98-107); FREE T4 0.77 ng/dL (0.76-1.46); Glucose 98 mg/dL (74-106); Potassium 3.8 mmol/L (3.5-5.1); Sodium 139 mmol/L (136-145); TSH 39.09 uIU/mL (0.36-3.74); Total Protein 8.4 g/dL (6.4-8.2)
== END 2024-09-14 08:45 | disposition home or self-care (01) ==
LOC: LBO 08:44
PROVIDERS: PCP Physician Assistant; Visit Provider Internal Medicine Hematology & Oncology
DX: C21.0 Malignant neoplasm of anus, unspecified (principal); Z79.899 Other long term (current) drug therapy
CPT/HCPCS: 36415; 80053; 84439; 84443; 85025

== ENCOUNTER 2024-10-26 08:11 | Outpatient (CLI) | payer MEDICAID, SELFPAY ==
[2024-10-26 08:21] LABS: Abs Immature Grans 0.19 10^3/uL (0.0-0.06); Absolute Lymphocyte Count 0.35 10^3/uL (1.2-3.4); Basophils % 0.1 %; Eosinophils % 0.5 %; HCT 42.1 % (40.0-50.0); HGB 13.8 g/dL (13.5-17.5); Immature Grans % 0.9 %; Lymphocytes % 1.7 %; MCHC 32.8 % (32.0-36.0); MCV 92 fL (80-95); MPV 8.1 fL (8.0-11.0); Neutrophils % 90.8 %; Platelet Count 303 10^3/uL (130-400); RDW 14.1 % (11.8-14.1); RDW-SD 47.2 fL; WBC 20.39 10^3/uL (4.4-10.8)
[2024-10-26 08:26] LABS: Absolute Basophil Count 0.02 10^3/uL (0.0-0.2); Absolute Monocyte Count 1.22 10^3/uL (0.1-0.8); Absolute Neutrophil Count 18.51 10^3/uL (1.2-6.7)
[2024-10-26 08:45] LABS: ALT 17 U/L (16-63); AST 26 U/L (15-37); Albumin 3.1 g/dL (3.4-5.0); Alkaline Phosphatase 105 U/L (46-116); BUN 16 mg/dL (7-18); Bilirubin, Total 0.41 mg/dL (0.2-1.0); Calcium 9.8 mg/dL (8.5-10.1); Chloride 97 mmol/L (98-107); FREE T4 0.86 ng/dL (0.76-1.46); Glucose 102 mg/dL (74-106); Potassium 3.9 mmol/L (3.5-5.1); Sodium 136 mmol/L (136-145); TSH 45.58 uIU/mL (0.36-3.74); Total Protein 8.1 g/dL (6.4-8.2)
== END 2024-10-26 08:12 | disposition home or self-care (01) ==
LOC: LBO 08:12
PROVIDERS: PCP Physician Assistant; Visit Provider Internal Medicine Hematology & Oncology
DX: C21.0 Malignant neoplasm of anus, unspecified (principal); Z79.899 Other long term (current) drug therapy
CPT/HCPCS: 36415; 80053; 84439; 84443; 85025

== ENCOUNTER 2024-12-05 08:26 | Inpatient (IN) | payer MEDICAID, SELFPAY ==
[2024-12-05] VITALS (183 sets, daily range): BP systolic 50–165; BP diastolic 24–124; PULSE 35–114; RESP 9–25; TEMP 36.7; O2SAT 83–100
--- NOTE | 2024-12-05 08:45 | RT.EKG_ITS ---
APPROVED REPORT Exam: Resting ECG Reason for Exam: Hypotensive Patient Location: E HR:79 bpm ECG Measurements Heart Rate 79 AXIS DC [id number] P [id number] QRSd 81 QRS 74 QT 383 T 68 QTc 438 Conclusion Atrial fibrillation, rate 79 No interval abnormalities No STEMI Baseline artifact No significant changes from prior
--- NOTE | 2024-12-05 08:57 | ED.GENADUL_ITS ---
Discharge Plan Disposition Patient Disposition: Admit to [facility] Condition: Fair Discharge Details Chief Complaint: GenMedical Clinical Impression: Septic shock, Cancer related pain, Palliative care encounter, Advanced care planning/counseling discussion, Cancer cachexia, Colostomy in place, Soft tissue infection, Primary cancer of anal canal, Metastatic cancer, Osteomyelitis, pelvis, Acute DVT (deep venous thrombosis), COPD (chronic obstructive pulmonary disease) Primary Care Provider: Sha Ramos ED Provider: Audrey Julian Home Meds and New Rx's Prescriptions: No Action metronidazole 500 mg tablet 500 mg PO TID levofloxacin 750 mg tablet 750 mg PO DAILY acetaminophen 325 mg tablet 1,000 mg PO TID Qty: 300 12RF Lactobacillus acidoph-L.bulgar [Floranex] 100 million cell granules in packet 1 packet PO DAILY Qty: 30 6RF polyethylene glycol 3350 17 gram powder in packet 17 g PO HS Qty: 325 12RF lidocaine 5 % cream 1 applic topical TID PRN (Reason: pain) Qty: 120 12RF apixaban 5 mg tablet 5 mg PO BID Qty: 60 12RF Rx Instructions: Start 5/2 levothyroxine 100 mcg capsule 100 mcg PO DAILY oxycodone 20 mg tablet See Rx Instructions PO Q4H MDD 12 pills Qty: 240 0RF Rx Instructions: 1-2 pills every 4 hours as needed for pain orally every 4 hours; lidocaine HCl [Glydo] 2 % jelly in applicator 1 applic topical QD-TID PRN (Reason: pain) Qty: 250 4RF fentanyl 100 mcg/hr patch 72 hour 1 patch transdermal Q48H MDD 125 mcg Qty: 15 0RF Rx Instructions: Note change in interval. fentanyl 25 mcg/hr patch 72 hour 1 patch transdermal Q48H MDD 125 mcg Qty: 15 0RF levofloxacin 750 mg tablet 750 mg PO DAILY Patient Comments: TAKE ONE TABLET BY MOUTH EVERY DAY- picked up but never started Dakin's Solution 0.5 % Solution 473 ml topical DIRECTED Qty: 473 12RF Rx Instructions: daily dressing changes HPI General Mode of arrival: ambulatory . Date/Time Provider Initiated Documentation: 12/05/24 08:27 . Limitations to Documentation: no limitations . Information obtained by: patient and old records reviewed . 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 The patient states that for the last 2 days he has had no appetite, and cannot bring himself to eat or drink. He is concerned that he is becoming dehydrated. He states that he has been doing all of his home pain medications including his fentanyl patch, oral oxycodone, and has not noted any improvement in his pain. He has been able to take all of his home medications include including his lifelong antibiotics, takes Levaquin and metronidazole. The patient did have a meeting with the palliative care team yesterday, and continues to desire full treatment including admission and ICU hospitalization if needed for subsequent episodes of sepsis. He is a full code. Exam: Gen: Awake and alert, in no apparent distress HEENT: Non-icteric sclera Neck: Supple Lungs: No apparent respiratory distress, normal respiratory effort. Lung sounds clear and equal CV: Appears well perfused, strong distal pulses, no tachycardia Abdomen: Non-distended MSK: Moves 4 extremities without apparent limitation in ROM. Skin: Visualized skin without rashes, cyanosis. The patient has a very large tunneling wound on his sacrum, right lateral hip, dressed and covered. Neuro: Normal Gait with walker, no obvious focal deficits or facial asymmetry. Speaks in full, clear sentences. Psych: Appropriate for situation. MDM: This is a 64-year-old male patient presenting for evaluation of decreased oral intake, pain, and weakness in the setting of metastatic anal cancer and osteomyelitis. Differential includes but is not limited to dehydration, metabolic and electrolyte derangement, kidney injury, certainly considered sepsis, systemic infection such as bacteremia. I considered extension of his cancer, anemia, and intra-abdominal abnormalities including bowel obstruction, diverticulitis, appendicitis, intra-abdominal abscess. We will obtain a broad laboratory workup to include CBC, CMP, magnesium, troponin, INR, inflammatory markers, Fluvid, urinalysis, and blood cultures. I will provide him with Tylenol and Dilaudid for initial symptomatic management of his pain, as well as a liter of IV fluids for his hypotension. Right now the patient's sepsis criteria include source of infection and hypotension, if he becomes tachycardic, or has leukocytosis on his laboratory workup he would meet sepsis criteria and we would at that time initiate broad-spectrum antibiosis. I will obtain a chest x-ray, EKG once the patient is able to lay flat on his back. ED Course: I reviewed the patient's laboratory studies, which show a leukocytosis to 21, stable anemia of 11.5, and no thrombocytopenia. Lactate elevated to 3.0, chemistry panel without significant electrolyte derangement, evidence of kidney disease or liver injury. ESR and CRP both slightly elevated, lipase is low and troponin is negative. COVID-19 and influenza swab negative. The patient received 2 L of IV fluids without significant improvement in his blood pressure, received vancomycin and Zosyn, and was started on a Levophed drip per our septic shock protocol. His EKG shows no evidence of ischemia and he is not on chronic steroids. A CT of his chest, abdomen, and pelvis was obtained, showing progression of his destructive disease in his buttocks and pelvic region, with ongoing osteomyel itic changes appreciated. He has some small abscesses in the right thigh, but no intra-abdominal or intrathoracic abnormalities. The patient continue to receive narcotic pain medications, as well as a nicotine patch. He had an increase in his norepinephrine needs, and given his lack of reflexive tachycardia I did elect to give him a dose of stress dose steroids. The patient was admitted by the hospitalist service to the ICU, boarding in our emergency department until such time his bed became available. Remained hemodynamically improved while under my care. Audrey Julian MD Related Data Home Medications ?Medication ?Instructions ?Recorded ?Confirmed levofloxacin 750 mg tablet 750 mg PO DAILY 02/13/24 12/05/24 sodium hypochlorite 0.5 % solution 473 ml topical DIRECTED #473 mL 02/18/24 12/05/24 (Dakin's Solution) levofloxacin 750 mg tablet 750 mg PO DAILY 03/07/24 12/05/24 metronidazole 500 mg tablet 500 mg PO TID 03/07/24 12/05/24 apixaban 5 mg tablet 5 mg PO BID DVT #60 tabs 03/09/24 12/05/24 Lactobacillus acidophilus, 1 packet PO DAILY prison abx 04/18/24 12/05/24 bulgaricus 100 million cell use #30 ea granules packet (Floranex) acetaminophen 325 mg tablet 1,000 mg (3.0769 x 325 mg) PO TID 04/18/24 12/05/24 #300 tabs polyethylene glycol 3350 17 gram 17 g PO HS #325 ea 07/18/24 12/05/24 oral powder packet lidocaine 5 % topical cream 1 applic topical TID PRN pain #120 09/12/24 12/05/24 grams lidocaine HCl 2 % mucosal jelly in 1 applic topical QD-TID PRN pain 10/27/24 12/05/24 applicator (Glydo) #250 mL levothyroxine 100 mcg capsule 100 mcg PO DAILY 10/31/24 12/05/24 oxycodone 20 mg tablet See Rx Instructions PO Q4H #240 10/31/24 12/05/24 tabs fentanyl 100 mcg/hr transdermal 1 patch transdermal Q48H #15 ea 11/14/24 12/05/24 patch fentanyl 25 mcg/hr transdermal 1 patch transdermal Q48H #15 ea 11/29/24 12/05/24 patch Previous Rx's ?Medication ?Instructions ?Recorded sodium hypochlorite 0.5 % solution 473 ml topical DIRECTED #473 mL 02/18/24 (Dakin's Solution) apixaban 5 mg tablet 5 mg PO BID DVT #60 tabs 03/09/24 Lactobacillus acidophilus, 1 packet PO DAILY prison abx 04/18/24 bulgaricus 100 million cell use #30 ea granules packet (Floranex) acetaminophen 325 mg tablet 1,000 mg (3.0769 x 325 mg) PO TID 04/18/24 #300 tabs polyethylene glycol 3350 17 gram 17 g PO HS #325 ea 07/18/24 oral powder packet lidocaine 5 % topical cream 1 applic topical TID PRN pain #120 09/12/24 grams lidocaine HCl 2 % mucosal jelly in 1 applic topical QD-TID PRN pain 10/27/24 applicator (Glydo) #250 mL oxycodone 20 mg tablet See Rx Instructions PO Q4H #240 10/31/24 tabs fentanyl 100 mcg/hr transdermal 1 patch transdermal Q48H #15 ea 11/14/24 patch fentanyl 25 mcg/hr transdermal 1 patch transdermal Q48H #15 ea 11/29/24 patch Allergies Allergy/AdvReac Type Severity Reaction Status Date / Time No Known Allergies Allergy Verified 12/05/24 08:49 General Stated Complaint: GenMedical WENDY: 2 Course Vital Signs Vital signs: Vital Signs Temperature 36.7 C 12/05/24 08:29 Pulse 57 L 12/05/24 08:29 Respiratory Rate 16 12/05/24 08:29 Blood Pressure 75/47 L 12/05/24 08:29 Pulse Oximetry 97 12/05/24 08:29 Temperature 36.7 C 12/05/24 08:44 Temperature Source Tympanic 12/05/24 08:44 Pulse 57 L 12/05/24 08:44 Respiratory Rate 16 12/05/24 08:46 Respiratory Effort Normal 12/05/24 08:46 Respiratory Depth Normal 12/05/24 08:46 Respiratory Pattern Normal 12/05/24 08:46 Blood Pressure 75/47 L 12/05/24 08:44 Blood Pressure Position Supine 12/05/24 08:44 Pulse Oximetry 97 12/05/24 08:44 Oxygen Delivery Method Room Air 12/05/24 08:44 Oxygen Flow Rate 0 12/05/24 08:44 Pain Level 8 12/05/24 08:44 Lab/Test Results Lab/Test Results: 12/05/24 08:45 Blood Blood Culture - Pending 12/05/24 08:45 Blood Blood Culture - Pending Medical Decision Making Quality:SDOH Health Related Social Needs: Health related social needs details patient unable to participate at this time in page 2 assessment Critical Care Time Critical Care Time Critical Care Time: Yes Total Critical Care Time: 50 Attestation: Upon my evaluation, this patient had a high probability of imminent or life- threatening deterioration due to septic shock, which required my direct attention, intervention, and personal management. I have personally provided 50 minutes of critical care time exclusive of time spent on separately billable procedures. Time includes review of laboratory data, radiology results, discussion with consultants, and monitoring for potential decompensation. Interventions were performed as documented above. Audrey Julian MD [facility] All Active Problems Septic shock (Acute) Abscess of leg without foot, left (Acute) Acute DVT (deep venous thrombosis) (Acute) Osteomyelitis, pelvis (Acute) Metastatic cancer (Acute) 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) Housing insecurity (Acute) Food insecurity (Acute) 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 COPD (chronic obstructive pulmonary disease) (Chronic) Hypoalbuminemia due to protein-calorie malnutrition (Acute) Microcytic anemia (Acute) Smoker (Acute) Medical History ETOH abuse Resolved February 2023 Status post radiation therapy Family History Other Cancer Social History Smoking/Tobacco Use Status: Current every day Tobacco Type: cigarettes Smoking risk assessment performed?: Yes Alcohol Intake: former Drug use: Rarely Substance use type: marijuana Housing: apartment Do you feel safe at home: Yes Do you feel safe in your relationship?: Yes
[2024-12-05 09:16] LABS: Abs Immature Grans 0.19 10^3/uL (0.0-0.06); Basophils % 0.1 %; HCT 35.3 % (40.0-50.0); HGB 11.5 g/dL (13.5-17.5); Immature Grans % 0.9 %; Lymphocytes % 1.8 %; MCHC 32.6 % (32.0-36.0); MCV 89 fL (80-95); MPV 8.7 fL (8.0-11.0); Monocytes % 4.8 %; Neutrophils % 92.4 %; Platelet Count 369 10^3/uL (130-400); RBC 3.97 10^6/uL (4.36-5.78); RDW-SD 49.1 fL; WBC 21.05 10^3/uL (4.4-10.8)
[2024-12-05 09:17] LABS: Absolute Basophil Count 0.02 10^3/uL (0.0-0.2); Absolute Lymphocyte Count 0.38 10^3/uL (1.2-3.4); Absolute Monocyte Count 1.01 10^3/uL (0.1-0.8); Absolute Neutrophil Count 19.45 10^3/uL (1.2-6.7)
[2024-12-05] MEDS: HYDROmorphone 2 MG/ML SYR 1 MG IVP (09:21)
[2024-12-05] MEDS: ACETAMINOPHEN 1,000 MG/100 ML BAG 400 MG IVPB (09:21)
[2024-12-05] MEDS: Lactated Ringers 1,000 ML 1000 ML IV ×2 (09:22→11:34)
[2024-12-05 09:25] LABS: INR 1.3 (0.9-1.1); Prothrombin Time 12.7 sec (9.1-11.1)
[2024-12-05 09:37] LABS: ESR 38 mm/hr (0-20)
[2024-12-05 09:38] LABS: ALT 15 U/L (16-63); AST 34 U/L (15-37); Albumin 2.7 g/dL (3.4-5.0); Alkaline Phosphatase 108 U/L (46-116); Anion Gap 4.4 mmol/L (3-11); BUN 10 mg/dL (7-18); Bilirubin, Total 0.69 mg/dL (0.2-1.0); CO2 33.6 mmol/L (21.0-32.0); CREATININE 1.2 mg/dL (0.70-1.30); Calcium 11.2 mg/dL (8.5-10.1); Chloride 98 mmol/L (98-107); Estimated GFR 67.95 (mL/min/1.73m2); Glucose 106 mg/dL (74-106); Lipase 7 U/L (<78); Potassium 3.5 mmol/L (3.5-5.1); Sodium 136 mmol/L (136-145); Total Protein 6.9 g/dL (6.4-8.2); Troponin I 8 ng/L (<or=76)
[2024-12-05] MEDS: MORPHine 4 MG/ML SYR IVP ×6 (09:51→23:42)
[2024-12-05] MEDS: PIPERACILLIN/TAZO 4.5 GM in Normal Saline 100 ML IVPB (09:57)
--- NOTE | 2024-12-05 10:00 | DI.CT_ITS ---
Exam(s) CT CHEST/ABD/PEL W EXAM: CT CHEST/ABD/PEL W CLINICAL HISTORY: Sepsis, anal cancer, hx abscess TECHNIQUE: Imaging Protocol: Axial computed tomography images with coronal and sagittal reformatted images were created and reviewed. Lung Computer Aided Detection (CAD) was utilized. CONTRAST MATERIAL: Intravenous: Omnipaque 350 contrast volume:98 mL Oral: No COMPARISON: CT CT CHEST/ABD/PEL W from 09/04/2024 FINDINGS: There is artifact secondary to the placement of the patient's upper extremities. CHEST: Tracheobronchial tree: Patent where visualized. No evidence of bronchiectasis. Pulmonary parenchyma: Centrilobular emphysematous changes are present. No focal consolidating infilt rates. No pulmonary nodules are present. No architectural distortion. Visualized thyroid gland: Unremarkable. Mediastinum and Priscila: No dominant adenopathy or fluid collection. The esophagus is unremarkable. Pleura: No effusion or pneumothorax. Heart: The heart is not dilated. Minimal coronary artery calcification. No pericardial effusion. Pulmonary arteries: No pulmonary emboli are identified. Aorta: Thoracic aorta non-dilated. No evidence of dissection. Lymph nodes: Within normal limits. Soft tissues: Unremarkable. Bones:Within normal limits for the patient's age. ABDOMEN: Liver: Normal density. No measurable mass. The liver measures 18 cm long. Portal, Superior Mesenteric, and Splenic Veins: Unremarkable. Gallbladder and Biliary Tract: The gallbladder is distended. No stones are seen. The common duct me asures 9 mm in diameter. Pancreas: Normal density, no abnormal calcifications or inflammatory process. Spleen: The spleen is at the upper limits of normal measuring 12 cm. Adrenals: No masses seen. Kidneys: Normal size, contour and axis. No radiodense stones or obstructive uropathy. There is a righ t renal cyst. No follow-up is recommended. Abdominal Aorta: Abdominal portion non-dilated. Atherosclerotic calcification is present. Bowel: The bowel shows no evidence of obstruction. The remainder of the bowel apart from the anus ar e unremarkable. There appears to be a left abdominal ostomy in place. Peritoneal Cavity: There is a trace amount of ascites in the pelvis. There is a small amount of mayra hepatic ascites. No free air. Lymph Nodes: There are enlarged pelvic and inguinal lymph nodes. The largest is in the right inguina l region and measures 1.8 cm. Bones: Destructive changes involving the right ischium as described below. There also now destructiv e changes involving the posterior column and roof of the right acetabulum. There is a stable scleroti c focus in the right ilium. There is an associated in capsulated hypodense lesion adjacent to the rig ht acetabulum. This may represent a metastatic focus versus an abscess. Soft Tissues: There is a large irregular destructive area involving the perineum and right buttock. This now extends to the right ischium. There are destructive changes of the ischium likely reflectin g osteomyelitis. Metastasis cannot be excluded. There are multiple ring-enhancing lesions in the so ft tissues of the upper right thigh and perianal soft tissues. There is skin thickening and ulcerati on present. The findings have significantly progressed since the prior examination. This may reflec t extension of the patient's anal carcinoma with superimposed abscesses and osteomyelitis. PELVIS: Bladder: Symmetric distention, no gross wall thickening. Reproductive Organs: Unremarkable as visualized. Lymph Nodes: Within normal limits. Bones: Within normal limits. IMPRESSION: 1. No evidence of thoracic metastatic disease. 2. No acute pulmonary process. 3. There has been marked progression of the destructive changes seen in the) EM and buttocks since th e prior examination. There is now extension to the right ischium with destructive changes of the bone s suggesting osteomyelitis. Metastatic focus cannot be excluded. 4. There are also multiple small ring-enhancing lesions in the soft tissues in the right thigh suspic ious for metastatic disease or abscesses. 5. There are now destructive changes involving the right acetabulum with an associated ring-enhancing fluid collection. Infection versus metastatic disease. 6. Distended gallbladder without evidence of cholelithiasis. 7. Mild hepatomegaly. No evidence of a hepatic metastasis. Upper limits of normal in size spleen. 8. Findings were discussed with Dr. Cano at 12 05 p.m. on 12/05/2024. RADIATION DOSE DELIVERED: 551.29mGy.cm Total DLP DATA REPOSITORY: All CT scans at this facility are submitted to the National Radiology Data Registry (NRDR) Dose Index Registry (DIR) with the [employer] (A[employer]). RADIATION OPTIMIZATION: All CT scans at this facility use at least one of these dose optimization te chniques: automated exposure control; mA and/or kV adjustment per patient size (includes targeted exa ms where dose is matched to clinical indication); or iterative reconstruction.
[2024-12-05 10:31] LABS: COVID-19 PCR Negative (Negative); Influenza A PCR Negative (Negative); Influenza B PCR Negative (Negative); RSV PCR Negative (Negative); Source Nasopharynx
[2024-12-05] MEDS: Omnipaque 350 MG/ML 100 ML BTL IJ (10:59)
[2024-12-05] MEDS: Normal Saline - Diluent 50 ML VIAL IJ (11:00)
[2024-12-05] MEDS: VANCOMYCIN/WATER (PEG) 1.25 GM/250 ML BAG IVPB (11:34)
--- NOTE | 2024-12-05 12:13 | PCNE_ITS ---
Date of service: 12/05/24 Time of Service: 15:53 History of Present Illness Narrative: LEONEL Esqueda is a 63-year-old gentleman who lives in [facility]. 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 He has persistent disease as well as chronic abscess and osteomyelitis causing chronic pain I first met with him December 2023, when he was referred to palliative care clinic by his oncologist Dr. Everett for help with pain management as well as help with goals of care and additional support. Additional medical problems include COPD, DVT (diagnosed summer 2023, now on lifelong DOAC) , history distant EtOH abuse. We continue to manege and prescribe his pain medications. He had [facility] [place] 2 wks ago confirms that bone lesion is new bone Metastases. Cultures were negative Ronaldo had a routine followup appt with me this morning, but had to go to the ED instead because of three days of and increasing pain in his R leg and hip/back (usual location). He arrived at ED hypotensive with elevated WBC count and felt to be septic. Now on pressors, abx, steroids (not on steroids prior to ED presentation). He denies antecedent fevers or lissing abx doses. He has been unusually anorexic. ED consulted us to help with GOC discussion given recent changes in clinical status as well as suggest any changes in pain management. #Pain: Prior to admission, pain medication was as follows: -Fentanyl patch: 125 mcg (100 + 25) changed every 48 hours -Oxycodone: 20mg pills: 1-2 pills every three hours as needed (using about 7 pills a day) -Topical Lidocaine (both cream and gel): He applies around wound and continues to help. This comes to MME of 510 mg daily #Anal carcinoma with recurrence: Has locally metastatic disease which is causing a lot of pain and disability. Recent bx confirms new bone met in acetabulum. Keytruda stopped permanently in October because of rash. Unfortunately not a candidate for chemotherapy due to osteomyelitis and multiple abscesses with fistulas. He is at risk for a long and protracted course to his disease with significant pain and disability. #Deep soft tissue asked abscess and osteomyelitis in area of tumor: Ronaldo had two spring 2023 hospital admissions for sepsis due to wound abscess. He will need to continue on lifelong antibiotic suppression (Levaquin and metronidazole). He was taken to the OR in February several times. And it was documented that he has biopsy-proven wide local recurrence of rectal cancer manifesting as multiple nodules with in wound down left thigh. Tumor load has been increasing on scans. Home health nurse still coming in once or twice a week. Continues on lifelongoral antibiotics to suppress the osteomyelitis. He has been compliant. New lesion will be biopsied November 20, 2024 and cultured. May be resistant and may need change of antibiotic Changing the alginate dressing 3 times a day and insurance is balking on paying for so many dressings. He refuses to use gauze dressings because they stick and cause bleeding . #Mild hyperthyroidism: TSH still in the 40s (see [facility] fro earlier this month) #Pulmonary embolus within the last year: on lifelong DOAC because of asymptomatic DVT seen on imaging early summer 2023. #Goals of care/advance care planning: Discussion during previous visit regarding goals of care, he wants to live for as long as he can. He did not find recent hospitalizations onerous. If he had another infection or sepsis he would want to go back to the hospital, receive IV antibiotics, pressors, being in the intensive care unit. If he had a cardiac arrest, he would want a trial of CPR. If he stopped breathing, he would want to be on a ventilator, but only for short time. I do not want to be in machine for the rest of my life, but I want to try short-term to see if I could get well enough to return home .Patient remains full code. I have asked him in the past when he would know it was time to stop treatment. He explained to me that it does not help him to think ahead with this. We will cross that bridge when the time comes . I will think about that when it happens . He seems understand this is not going to get better. -Never wants to be in correction #EtOH use: Sober since 2021. Does continue to smoke. #Weight loss: Not adressed today Care Team: Primary Care physician: KELLY Guevara Oncology: Dr. Jose De Jesus Everett: Radiation oncology: Dr. Roblero Surgery: Dr. Driver Colorectal surgery[place] Dr. Chaya Gambino (also technology methodology consultant on persistent perineal wound defect) [facility] wound care clinic: Dr. Gambino (for large soft tissue defect at site of cancer) Ostomy: (Stoiber) Social HX: Lives alone in [facility], 8 years ago, from Lung Cancer. (they at the end of her life). He cares for several cow(s). Children: Trudi and Essie, rare contact. Does not drive. I did not query why. 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 On disability for under a year. Smoker: Most recent oncology note says half a pack per day EtOH: [facility] chart notes history of alcohol abuse. Patient reports no alcohol since CA diagnosis. Hobbies: Hunting (got out once this fall), TV, keeps house running. Additional services: -Ongoing assistance from [employer]. -Transportation from [facility] health wound nurse ([place]) weekly: cleans the wound. Also brings him dressing supplies. Function: Ambulation: Uses cane when out and about. ADLs: Independent iADLs: Independent Hearing: Good Vision: reading glasses Cognition: Memory good Falls: None Palliative Performance Scale % Ambulation Activity and Evidence of Disease Self Care Intake Level of Consciousness 100 Full Normal activity, no evidence of disease Full Normal Full 90 Full Normal activity, some evidence of disease Full Normal Full 80 Full Normal activity with effort, some evidence of disease Full Normal or reduced Full 70 Reduced Unable to do normal work, some evidence of disease Full Normal or reduced Full 60 Reduced Unable to do hobby or some housework, significant disease Occasional assist necessary Normal or reduced Full or confusion 50 Mainly sit/lie Unable to do any work, extensive disease Considerable assistance required Normal or reduced Full or confusion 40 Mainly in bed Unable to do any work, extensive disease Mainly assistance Normal or reduced Full, drowsy, or confusion 30 Totally bed bound Unable to do any work, extensive disease Total care Reduced Full, drowsy, or confusion 20 Totally bed bound Unable to do any work, extensive disease Total care Minimal sips Full, drowsy, or confusion 10 Totally bed bound Unable to do any work, extensive disease Total care Mouth care only Drowsy or coma 0 - - - - Patient Score: 70 prior to today Spiritual history: Not orthodox. Palliative review of systems: See HPI Pain: More burning around the wound. Also notices more drainage since starting on Keytruda. Dyspnea: GI symptoms: Denies constipation (has ostomy). Still with nausea for several hours after taking antibiotics, but interfering less with function now that he has started taking them at night. Appetite: Weight stable. Depression: Denies Anxiety: None Emotional Distress: Spiritual/Existential Distress: Labs: 11/20/2024 [place] [place] See labs from [facility] today. NOTE ELEVATED WBC at [facility] last 4 weeks. Cr: 0.8 Liver panel: normal Albumin: 3.4 CBC: Hemoglobin 11.6 (down) WBC ct 21.78k (running over 20k since October) TSH: See labs (43, about the same) Advanced Care Planning: Advanced Directive: None on file Health Care Agent: 02/15/2024 healthcare agent form: [id number] Leticia Pressley, alternate is his landlord COLST: None on file. Patient currently desires to be full code hand to have at least a trial of intubation if indicated Limitations: Assessment and Plan Assessment and plan (1) Primary cancer of anal canal: Status: Acute Assessment and plan: Ronaldo is a 64 yo with advanced metastatic anal cancer with chronic osteomyelitis, weight loss. He is now admitted for probable sepsis, despite being on chronic levaquin and metronidazole. Additionally, had bone biopsy 10 days ago at [facility] and acetabular lesion was confirmed to be a metastasis, rather than a new site of osteomyelitis. Please see previous palliative care notes for various discussions. Today I met with patient in the emergency department, discussed with ER doc, hospitalist, called and spoke with Nurse coordinator at cancer center (oncologist Dr. Everett not available today). Following issues addressed today: #Goals of care: Patient continues to desire full court press and treatment. Willing to avail himself with any treatment recommendations that may result in prolonged life. He wishes to have CPR and even be put on a ventilator. He reiterates to me that his urltgi-do-exo Leticia is his healthcare agent and that she is a 1 to decide when to pull the plug when there is no hope at all left. Patient had appointment with oncologist 2 days from now and I suspect they were going to review prognosis and see if there are any remaining life-prolonging options for him to try. He does want to return home. Never wants to stay in a correction. Does not think he will ever want to be on hospice. He points out that there is no one to help me with that at home, so I really cannot be on hospice . He would like his pain to be better managed. Assessment: For now patient remains full code and would like to have everything done possible. His plan is to return home in a few days, maybe even a tomorrow . Plan: I will work on talking with oncologist in the next few days to see if there are any further options available to patient regarding palliative chemotherapy, radiation therapy, etc. #Cancer related pain: Patient is using fentanyl patch total of 125 mcg; has been needing to change it every 48 hours. Additionally is using oxycodone 20 mg. Sounds like he is using 8 of the 20 mg pills daily, based on both patient report and confirmed with [facility]. This comes to MME of 510 mg daily. Pt reports That oxycodone don't work very well. Of note he was on oxycodone and then requested switch to hydromorphone and then requested back to oxycodone (about a month ago). While in ED, he receiving morphine IV 4 mg about every 2 hours. He reports That morphine works really well, better than the oxycodone. Unfortunately currently shortage of IV morphine, although able to receive in ED for now. A little curious, as this would be a 50% reduction in doing from what he has been talking with oxycodone He also requests increase in Fentanyl patch. He is now feeling able to swallow pills and try to take some PO. Assess: Ronaldo has significant pain from longstanding extensive abscess and osteomyelitis and bone mets. He is always suspicious that prescribers will take away my pain medicine or not send in refills on time. It has been hard to build trust, but we have slowly been doing so. HE is asking to use morphine for short acting in the hospital. Good chance he will request to change back to another opiiod after a few days. I suggest working with him (And Palliative Care Team will work with you as well). PLAN: 1. Recommend INCREASE FENTANYL PATCH TO TOTAL 150 mcg and change every 48 hours. 2. Once admitted to Med SU[facility], recommend scheduling either IV morphine every 4 hours (can start with 4-5 mg but anticipate need to increase) OR oral Morphine IR 15 mg every 4 hours (and may need to increase) and then PRN dosing (. 3. Another option is an opioid drip. But if this is similar to last admission, he will bounce back fairly quickly. Again, he has no adverse reactions to hydromorphone. Palliative Care will plan to see him again tomorrow to help with pain control. (2) Metastatic cancer: Status: Acute (3) Osteomyelitis, pelvis: Status: Acute (4) Septic shock: Status: Acute (5) Cancer cachexia: Status: Acute (6) High risk medication use: Status: Acute (7) Cancer related pain: Status: Acute (8) Palliative care encounter: Status: Acute (9) Advanced care planning/counseling discussion: Status: Acute Assessment and plan: 16 to 30 minutes spent today on Advance Care Planning. Patient and family participated voluntarily. Advance care planning may include (not limited to) explanation and discussion of advance directives, choosing and appointing healthcare agents, alternatives to various ACP tools, discussion of (and if indicated, completion of) COLST form, discussion of patient's values and overall goals for treatment, palliative and disease directive care options, ways to avoid hospital readmission including hospice discussions, care preferences should the patient's several other adverse health events.See today's palliative care note for additional information. This note was dictated using speech recognition software. Attempt was made at proofreading, but errors may be present. Please call with questions. PFSH All Active Problems Septic shock (Acute) Abscess of leg without foot, left (Acute) Acute DVT (deep venous thrombosis) (Acute) Osteomyelitis, pelvis (Acute) Metastatic cancer (Acute) 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 Bone mets, local metastases. 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's license (Acute) Housing insecurity (Acute) Food insecurity (Acute) 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 COPD (chronic obstructive pulmonary disease) (Chronic) Hypoalbuminemia due to protein-calorie malnutrition (Acute) Microcytic anemia (Acute) Smoker (Acute) Medical History ETOH abuse Resolved February 2023 Status post radiation therapy Family History Other Cancer Social History Smoking/Tobacco Use Status: Current every day Tobacco Type: cigarettes Smoking risk assessment performed?: Yes Alcohol Intake: former Drug use: Rarely Substance use type: marijuana Housing: apartment Do you feel safe at home: Yes Do you feel safe in your relationship?: Yes Results Last Vital Signs Temp 36.7 C 12/05/24 08:44 Pulse 69 12/05/24 11:40 Resp 16 12/05/24 08:46 BP 70/38 L 12/05/24 10:46 Pulse Ox 99 12/05/24 11:40 Labs 12/05/24 09:07 12/05/24 09:07 Labs: Laboratory Results - last 24 hr 12/05/24 12/05/24 12/05/24 09:07 09:35 09:45 WBC 21.05 H RBC 3.97 L Hgb 11.5 L Hct 35.3 L MCV 89 MCH 29.0 MCHC 32.6 RDW 15.0 H Plt Count 369 MPV 8.7 Immature Gran % 0.9 Neutrophils % 92.4 Lymphocytes % 1.8 Monocytes % 4.8 Eosinophils % 0.0 Basophils % 0.1 Nucleated RBC % 0.0 Absolute Neutrophils 19.45 H Absolute Lymphocytes 0.38 L Absolute Monocytes 1.01 H Absolute Eosinophils 0.00 Absolute Basophils 0.02 ESR 38 H PT 12.7 H INR 1.3 H VBG Lactate 3.0 H* Sodium 136 Potassium 3.5 Chloride 98 Carbon Dioxide 33.6 H Anion Gap 4.4 BUN 10 Creatinine 1.2 Est GFR (CKD-EPI 2020) 67.95 Glucose 106 Calcium 11.2 H Magnesium 2.0 Total Bilirubin 0.69 AST 34 ALT 15 L Alkaline Phosphatase 108 Troponin I 8 Cancelled C-Reactive Protein 6.90 H Total Protein 6.9 Albumin 2.7 L Lipase 7 COVID-19 Source Nasopharynx SARS-CoV-2 (PCR) Negative Influenza Type A (PCR) Negative Influenza Type B (PCR) Negative RSV (PCR) Negative 12/05/24 11:45 WBC RBC Hgb Hct MCV MCH MCHC RDW Plt Count MPV Immature Gran % Neutrophils % Lymphocytes % Monocytes % Eosinophils % Basophils % Nucleated RBC % Absolute Neutrophils Absolute Lymphocytes Absolute Monocytes Absolute Eosinophils Absolute Basophils ESR PT INR VBG Lactate Sodium Potassium Chloride Carbon Dioxide Anion Gap BUN Creatinine Est GFR (CKD-EPI 2020) Glucose Calcium Magnesium Total Bilirubin AST ALT Alkaline Phosphatase Troponin I Cancelled C-Reactive Protein Total Protein Albumin Lipase COVID-19 Source SARS-CoV-2 (PCR) Influenza Type A (PCR) Influenza Type B (PCR) RSV (PCR) Time Spent Time Spent with Patient Time Spent(min): 90
[2024-12-05] MEDS: Norepinephrine in D5W 8 MG/250 ML BAG 9.4 MG IV (12:40)
--- NOTE | 2024-12-05 12:52 | NUR.NOTE ---
Nursing Note: pt in room, pt continuously lays on right side for comfort. His pain is triggered by movement/positional. the position in which he lays interferes with propor cardiac monitoring. the signal is not clear. Multiple leads placed in attempts to fix this however it was not improved. pt declines repositioning for monitoring.
[2024-12-05] MEDS: Nicotine 14 MG/24 HR PATCH TD (13:41)
[2024-12-05] MEDS: Hydrocortisone SOD SUC. 100 MG VIAL IVP (14:04)
[2024-12-05 14:17] LABS: Bilirubin Negative (Negative); Blood Negative (Negative); Clarity Clear (Clear); Glucose Negative (Negative); Ketones Negative (Negative); Leukocyte Esterase Negative (Negative); Nitrite Negative (Negative); Specific Gravity <= 1.005 (1.005-1.025); Urobilinogen 0.2 mg/dL (Up to 0.2); pH 5.5 (5-8)
--- NOTE | 2024-12-05 17:52 | HPE_ITS ---
Date of service: 12/05/24 Time of Service: 17:54 Assessment and Plan Assessment and plan (1) Smoker: Status: Acute Assessment and plan: recommend complete cessation. (2) Acute DVT (deep venous thrombosis): Status: Acute Assessment and plan: pt on eliquis 5mg po bid (3) Palliative care encounter: Status: Acute Assessment and plan: Notes reviewed from Dr Loyola, appreciate consult (4) Advanced care planning/counseling discussion: Status: Acute (5) History of alcohol abuse: Status: Acute Assessment and plan: noted (6) Abnormal weight loss: Status: Acute Assessment and plan: Most likely 2/2 underlying disease. 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 Pt does want to continue therapy in hopes of remission (8) Osteomyelitis, pelvis: Status: Acute (9) Septic shock: Status: Acute Assessment and plan: continue with vanc and zosyn as well as pressure support with levophed as needed. 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 While the patient was in the ED he did have laboratory work as well as radiographs and blood cultures drawn. Despite aggressive fluid resuscitation the patient did require some pressure support with Levophed and there was concern about sepsis. The patient was subsequently mated to the hospital service for further evaluation and treatment. Of note the patient is on chronic daily Levaquin as well as Flagyl and states that he does take these medications daily. While he was in the ED the patient was also seen by palliative care team. Patient was quite clear that he wanted to be full code and treated with antibiotics and pressure support. The patient does endorse worsening appetite of late as well as weight loss. In reviewing his labs he did have an elevated white count of 21,000 as well as mild anemia. His anemia appears stable. His lactic acid was 3.0. His CRP was 6.9 and his albumin was 2.7. Chest abdomen and pelvic CT did not show any thoracic metastatic disease no acute pulmonary process marked progression of destructive changes into his right ischium and as well as possible osteomyelitis also had destructive changes in the right acetabulum with a ring-enhancing fluid collection infection versus metastatic disease. 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 Bone mets, local metastases. 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 (Acute) Housing insecurity (Acute) Food insecurity (Acute) 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 COPD (chronic obstructive pulmonary disease) (Chronic) Hypoalbuminemia due to protein-calorie malnutrition (Acute) Microcytic anemia (Acute) Smoker (Acute) Medical History ETOH abuse Resolved February 2023 Status post radiation therapy Family History Other Cancer Social History Smoking/Tobacco Use Status: Current every day Tobacco Type: cigarettes Smoking risk assessment performed?: Yes Alcohol Intake: former Drug use: Rarely Substance use type: marijuana Housing: apartment Do you feel safe at home: Yes Do you feel safe in your relationship?: Yes Meds Allergies and Home Medications Allergies Allergy/AdvReac Type Severity Reaction Status Date / Time No Known Allergies Allergy Verified 12/05/24 08:49 Home Medications ?Medication ?Instructions ?Recorded ?Confirmed ?Type levofloxacin 750 mg tablet 750 mg PO DAILY 02/13/24 12/05/24 History sodium hypochlorite 0.5 % solution 473 ml topical DIRECTED #473 mL 02/18/24 12/05/24 Rx (Dakin[facility] Solution) levofloxacin 750 mg tablet 750 mg PO DAILY 03/07/24 12/05/24 History metronidazole 500 mg tablet 500 mg PO TID 03/07/24 12/05/24 History apixaban 5 mg tablet 5 mg PO BID DVT #60 tabs 03/09/24 12/05/24 Rx Lactobacillus acidophilus, 1 packet PO DAILY [facility] abx 04/18/24 12/05/24 Rx bulgaricus 100 million cell use #30 ea granules packet (Floranex) acetaminophen 325 mg tablet 1,000 mg (3.0769 x 325 mg) PO TID 04/18/24 12/05/24 Rx #300 tabs polyethylene glycol 3350 17 gram 17 g PO HS #325 ea 07/18/24 12/05/24 Rx oral powder packet lidocaine 5 % topical cream 1 applic topical TID PRN pain #120 09/12/24 12/05/24 Rx grams lidocaine HCl 2 % mucosal jelly in 1 applic topical QD-TID PRN pain 10/27/24 12/05/24 Rx applicator (Glydo) #250 mL levothyroxine 100 mcg capsule 100 mcg PO DAILY 10/31/24 12/05/24 History oxycodone 20 mg tablet See Rx Instructions PO Q4H #240 10/31/24 12/05/24 Rx tabs fentanyl 100 mcg/hr transdermal 1 patch transdermal Q48H #15 ea 11/14/24 12/05/24 Rx patch fentanyl 25 mcg/hr transdermal 1 patch transdermal Q48H #15 ea 11/29/24 12/05/24 Rx patch Exam Narrative Exam Narrative: Head eyes ears nose and throat: Normocephalic atraumatic mucous membranes are moist extraocular motions are intact Neck: No lymphadenopathy no JVD no thyromegaly Cardiovascular: Regular rate and rhythm no murmur rubs or gallop Lungs: Clear to auscultation bilaterally with good air exchange Abdomen: Scaphoid with very little abdominal fat Extremities: No cyanosis clubbing or edema bilaterally he is actually has decreased muscle mass throughout Buttocks: Patient refused to take his dressing down for evaluation Neurologic: Cranial nerves II through XII intact as tested Psych: He is alert and oriented x 3 no apparent distress General: 64-year-old gentleman appears older than his stated age with significant muscle mass loss throughout. Results Labs 12/05/24 09:07 12/05/24 09:07 Labs: Laboratory Results - last 24 hr 12/05/24 12/05/24 12/05/24 09:07 09:35 09:45 WBC 21.05 H RBC 3.97 L Hgb 11.5 L Hct 35.3 L MCV 89 MCH 29.0 MCHC 32.6 RDW 15.0 H Plt Count 369 MPV 8.7 Immature Gran % 0.9 Neutrophils % 92.4 Lymphocytes % 1.8 Monocytes % 4.8 Eosinophils % 0.0 Basophils % 0.1 Nucleated RBC % 0.0 Absolute Neutrophils 19.45 H Absolute Lymphocytes 0.38 L Absolute Monocytes 1.01 H Absolute Eosinophils 0.00 Absolute Basophils 0.02 ESR 38 H PT 12.7 H INR 1.3 H VBG Lactate 3.0 H* Sodium 136 Potassium 3.5 Chloride 98 Carbon Dioxide 33.6 H Anion Gap 4.4 BUN 10 Creatinine 1.2 Est GFR (CKD-EPI 2020) 67.95 Glucose 106 Calcium 11.2 H Magnesium 2.0 Total Bilirubin 0.69 AST 34 ALT 15 L Alkaline Phosphatase 108 Troponin I 8 Cancelled C-Reactive Protein 6.90 H Total Protein 6.9 Albumin 2.7 L Lipase 7 Urine Color Urine Clarity Urine pH Ur Specific [place] Urine Protein Urine Ketones Urine Blood Urine Nitrite Urine Bilirubin Urine Urobilinogen Ur Leukocyte Esterase Urine Glucose COVID-19 Source Nasopharynx SARS-CoV-2 (PCR) Negative Influenza Type A (PCR) Negative Influenza Type B (PCR) Negative RSV (PCR) Negative 12/05/24 12/05/24 11:45 14:09 WBC RBC Hgb Hct MCV MCH MCHC RDW Plt Count MPV Immature Gran % Neutrophils % Lymphocytes % Monocytes % Eosinophils % Basophils % Nucleated RBC % Absolute Neutrophils Absolute Lymphocytes Absolute Monocytes Absolute Eosinophils Absolute Basophils ESR PT INR VBG Lactate Sodium Potassium Chloride Carbon Dioxide Anion Gap BUN Creatinine Est GFR (CKD-EPI 2020) Glucose Calcium Magnesium Total Bilirubin AST ALT Alkaline Phosphatase Troponin I Cancelled C-Reactive Protein Total Protein Albumin Lipase Urine Color Yellow Urine Clarity Clear Urine pH 5.5 Ur Specific [place] <= 1.005 Urine Protein Negative Urine Ketones Negative Urine Blood Negative Urine Nitrite Negative Urine Bilirubin Negative Urine Urobilinogen 0.2 Ur Leukocyte Esterase Negative Urine Glucose Negative COVID-19 Source SARS-CoV-2 (PCR) Influenza Type A (PCR) Influenza Type B (PCR) RSV (PCR) Last Vital Signs Temp 36.7 C 12/05/24 08:44 Pulse 49 L 12/05/24 16:41 Resp 15 12/05/24 16:41 BP 99/49 L 12/05/24 16:41 Pulse Ox 93 12/05/24 16:41 Time Spent Time spent with Patient: 55-74 minutes Time was spent: preparing to see the patient(eg.review tests), obtaining and/or reviewing separately otained hiistory, ordering medications,tests, procedures, referring, communicating with other health assisted living care manager, indepentently interpreting results, counseling the patient and care coordination
[2024-12-05] MEDS: PIPERACILLIN/TAZO 3.375 GM in Normal Saline 50 ML IVPB (18:41)
[2024-12-05] MEDS: Normal Saline 1,000 ML 150 ML IV (18:42)
[2024-12-05] MEDS: Normal Saline Flush 10 ML SYR IVP (19:05)
[2024-12-05] MEDS: oxyCODONE 10 MG TAB PO (20:19)
[2024-12-05] MEDS: Apixaban 5 MG TAB PO (20:20)
[2024-12-05] MEDS: Acetaminophen 325 MG TAB 1000 MG PO (20:20)
[2024-12-05 22:50] LABS: Vancomycin, Random 9.3 ug/mL
[2024-12-05] MEDS: Norepinephrine in D5W 8 MG/250 ML BAG 24 MG IV (23:41)
[2024-12-06] VITALS (85 sets, daily range): BP systolic 55–131; BP diastolic 28–102; PULSE 38–85; RESP 10–21; TEMP 37–37.6; O2SAT 83–100
[2024-12-06] MEDS: Normal Saline Flush 10 ML SYR IVP ×6 (00:06→20:33)
[2024-12-06] MEDS: PIPERACILLIN/TAZO 3.375 GM in Normal Saline 50 ML IVPB ×3 (01:56→18:55)
[2024-12-06] MEDS: oxyCODONE 10 MG TAB PO ×2 (02:06→08:26)
[2024-12-06] MEDS: Normal Saline 1,000 ML 150 ML IV ×3 (05:27→21:48)
[2024-12-06] MEDS: VANCOMYCIN/WATER (PEG) 1 GM/200 ML BAG IV (05:27)
[2024-12-06 05:54] LABS: Lactate 1.6 mmol/L (<or=2.0)
[2024-12-06 05:57] LABS: Abs Immature Grans 0.23 10^3/uL (0.0-0.06); Basophils % 0.3 %; HCT 34.5 % (40.0-50.0); HGB 11.2 g/dL (13.5-17.5); Immature Grans % 0.9 %; Lymphocytes % 3.5 %; MCH 28.6 pg (27.0-33.0); MCHC 32.5 % (32.0-36.0); MCV 88 fL (80-95); MPV 8.7 fL (8.0-11.0); Neutrophils % 89.3 %; Platelet Count 509 10^3/uL (130-400); RBC 3.91 10^6/uL (4.36-5.78); RDW 15.3 % (11.8-14.1); RDW-SD 49.4 fL
[2024-12-06] MEDS: Levothyroxine 100 MCG TAB PO (06:12)
[2024-12-06 06:13] LABS: ALT 13 U/L (16-63); AST 26 U/L (15-37); Albumin 2.2 g/dL (3.4-5.0); Alkaline Phosphatase 89 U/L (46-116); Anion Gap 0.3 mmol/L (3-11); BUN 7 mg/dL (7-18); Bilirubin, Total 0.41 mg/dL (0.2-1.0); CO2 33.7 mmol/L (21.0-32.0); CREATININE 0.9 mg/dL (0.70-1.30); Calcium 9.9 mg/dL (8.5-10.1); Chloride 103 mmol/L (98-107); Estimated GFR 95.97 (mL/min/1.73m2); Glucose 142 mg/dL (74-106); Potassium 3.7 mmol/L (3.5-5.1); Sodium 137 mmol/L (136-145); Total Protein 5.8 g/dL (6.4-8.2)
[2024-12-06 06:15] LABS: Absolute Basophil Count 0.08 10^3/uL (0.0-0.2); Absolute Lymphocyte Count 0.93 10^3/uL (1.2-3.4); Absolute Neutrophil Count 23.82 10^3/uL (1.2-6.7); WBC 26.67 10^3/uL (4.4-10.8)
[2024-12-06] MEDS: MORPHine 4 MG/ML SYR IVP ×6 (06:29→21:48)
[2024-12-06 06:41] LABS: Diff Comment Diff Reviewed; RBC Morphology Normal
[2024-12-06] MEDS: Acetaminophen 325 MG TAB 1000 MG PO (08:27)
[2024-12-06] MEDS: Apixaban 5 MG TAB PO ×2 (08:27→20:32)
--- NOTE | 2024-12-06 08:50 | INITIAL_ITS ---
Date of service: 12/06/24 Time of Service: 08:50 Care Management Initial Assmt Initial Assessment Reason for Hospitalization: sepsis Functional Status/Living Situation Patient Presentation: Anant was lying in bed in the ICU when CM met with him. He was admitted with rectal cancer with metastasis as well as osteomyelitis. He appeared very uncomfortable and admitted that his pain is not well controlled. Anant had a Palliative Care consult today and the provider focused on pain control rather than code status. Anant is still seeking treatment and is a full code. CM asked about advanced directives and he stated that there is only one thing to know: I dont want to live on a d__ machine. The rest will sort itself out. Anant lives alone in one apartment in a 2 [address] farmhouse and his landlord's daughter lives in the other part. 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 Anant has 2 daughters but he has not had contact with them for 2 years. He stated that they gave up on him as a Dad and refuse to have contact. When asked who his support system included, he indicated that his landlord is like a brother and that his brother and [id number] are very supportive as well as many close friends. Anant has home health nursing services twice a week for dressing changes. He informed CM that he would like it increased to 3 times a week, preferably to include a weekend visit. He is mostly independent with ADL. 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) Instrumental Activities of Daily Living (ADLs): Independent Medications Medication Management: No Issues/Barriers identified Advance Directives Advance Directives: Do you have an Advance Directive: N 02/23/23 08:40 AD On File at [facility]: N 02/23/23 08:40 Date Asked 12/05/24 12/05/24 08:33 AD Date Reviewed COLST On File at [facility] COLST Date Scanned Code Status Resuscitation Status Full Code Portal Pt does not currently have a portal and education provided: Yes Insurance Coverage/Financial Issues Insurance: Medicaid Care Team Visit Care Team Role Provider Type Sha Ramos Primary Care Provider NON-[facility] STAFF PHYSICIAN uAdrey Julian MD Emergency Provider [facility] STAFF PHYSICIAN Yash Lopes MD Admit Provider [facility] STAFF PHYSICIAN Attending Provider Discharge Potential Discharge Needs: PCP F/U Appt and Other (oncology) Anticipated Barriers to Discharge: Medical Status Patient/Family Education Needs: Review discharge instructions, discuss Ask Me Three Transportation: Private vehicle Plan: Anticipate Anant will be discharged home with a resumption of home health services for wound cane, when medically cleared. He will follow up with his PCP, Palliative Care and plan of care and transport with family. CM will follow and continue to support discharge planning needs. 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 Bone mets, local metastases. 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 to lack of [place] driver's license (Acute) Housing insecurity (Acute) Food insecurity (Acute) 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 COPD (chronic obstructive pulmonary disease) (Chronic) Hypoalbuminemia due to protein-calorie malnutrition (Acute) Microcytic anemia (Acute) Smoker (Acute) Medical History ETOH abuse Resolved February 2023 Status post radiation therapy Family History Other Cancer Social History Smoking/Tobacco Use Status: Current every day Tobacco Type: cigarettes Smoking risk assessment performed?: Yes Alcohol Intake: former Drug use: Rarely Substance use type: marijuana Housing: apartment Do you feel safe at home: Yes Do you feel safe in your relationship?: Yes
[2024-12-06] MEDS: Norepinephrine in D5W 8 MG/250 ML BAG 25 MG IV (09:46)
--- NOTE | 2024-12-06 10:22 | NUR.NOTE ---
12/06/24: 0715: During shift handoff patient requested his small backpack which he thought was with his belonging. I looked thru belonging with patient, off going nurse Spenser Mares RN and peggy Stern RN but did not find his requested backpack. Spenser Mares RN contacted the ED escrow secretary and inquired about patient's backpack. 0740: patient anxious and upset that he does not have his backpack. 0745: I went to the ED and also looked for his back pack and also checked with security with out success of locating his backpack. The loading and unloading supervisor Francisco THOMAS was notified of situation. 0805:The patient called [facility], talked with personnel and requested that the set key driver look in the back of his car to see if backpack was left in the car. 0840: patient relayed to me that [facility] called him back and was told the set key driver saw him with his back pack after he left the car. Additional information from patient was that he remembered opening up his backpack in the room the put you when you enter the ED and then I put it on the floor. This information was also relayed by me to the loading and unloading supervisor. the patient relayed that he is worried about finding his back pack as it has my ID, bank cards and about $400. It also has some of my dressing changes. Nursing Note:
--- NOTE | 2024-12-06 12:36 | PCPN_ITS ---
Date of service: 12/06/24 Time of Service: 11:15 Assessment and Plan Assessment and plan (1) Osteomyelitis, pelvis: Status: Acute Assessment and plan: on suppressive abx aware of incurable nature, pain source worried about wound care (2) Primary cancer of anal canal: Status: Acute Assessment and plan: not eligible for treatment, per previous PC note review stage 4 w/bone mets (3) Colostomy in place: Status: Chronic (4) Cancer cachexia: Status: Acute (5) Cancer related pain: Status: Acute Assessment and plan: fentanyl increased to 150mcg q48h - consider further increase if ongoing positive response and ongoing pain after 24h morphine increase to 4mg q1h PRN - dose recommended to MEETING MANAGER at end of visit continue oxycodone 40mg PO q4h PRN if not enough effect from morphine pre-medicate prior to wound dressing changes or repositioning consider pump tomorrow if pain remains uncontrolled (6) Advanced care planning/counseling discussion: Status: Acute Assessment and plan: - reviewed may be discharged home w/planning as soon as possible w/supports from hospice - would need to establish caregivers to be home safely, candy w/goal of no NH; would like to be home as soon as possible - reviewed full code status, no changes in preferences from PC visit yesterday; would like to in home - reviewed pain management goals, will use today to see if response to ou tpatient fent increase to 150mcg and use morphine titration to obtain more appropriate pain med requirements; if today's changes do not provide adequate relief I do feel a PROFESSOR OF [employer]HETOR[employer] pump should be considered to meet his goals of wanting control over pain meds, however he will not be able to go home with this if he does not have hospice supports. If he opts for hospice services, a pump should be started prior to discharge - added to watchlist for HH (7) Palliative care encounter: Status: Acute Assessment and plan: PC to continue following closely during this hospitalization and through discharge, pending GOC transition to hospice - if no improvement in pain, recommend consider transition to PROFESSOR [employer]HE[employer] pump - for f/u: review option for hospice supports w/pain pump - increasing his control; would need caregivers to return home - ongoing GOC conversations regarding current trajectory, life expectancy and treatment goals - CPR will likely be futile Subjective Subjective Interval history since last seen: Ronaldo remains hospitalized at [facility] in ICU w/stage 4 SCC of anus, w/sepsis, hypotension (on norepinephrine drip) and uncontrolled pain - today's visit specifically to address uncontrolled pain Current pain regimen: fentanyl 125mcg q48h, oxycodone 40mg PO q4h PRN (last administered 08:30 and 02:30), morphine 4mg IVP q4h PRN (last administered 06:30) - Ronaldo reports pain remains uncontrolled, worst is bone pain from cancer, wound pain also bad - historically w/fentanyl patch increases he has had good response w/pain - during this hospitalization he is not getting good relief w/oxycodone, the morphine seems to be helping him more - he wishes he had control over his pain, would like option to administer med when he needs it - he would like meds adjusted to prioritize pain control - MEETING MANAGER concerns w/increased morphine concerns w/hypotension control He is most worried/upset today about his missing backpack, he remembers having it on arrival in the ED. his money, wound care and several other important things on in it He lives alone in [place]. He does have neighbors and others around that would potentially be able to help him more, he has not asked anyone reports he presented to hospital bc he was concerned w/his lack of eating. he ate this morning, appetite returning. He is aware Leticia is his HCA and is hoping for more of her support in his own decisions. He does want to remain a full code, w/goal to be able to live as long as possible, even if this means CPR intervention. he does not want to be kept alive indefinitely with machines, but would like them trialed for a short time to see if they would work. - he would like to be home as soon as possible, but not today; he would like to prioritize pain control - he is having a hard time not having any luck, which is making him more emotional Exam Narrative Exam Narrative: General: older than stated age male, frail/ill appearing, lying in ICU bed, eyes closed resting on arrival, wakes easily to voice stimulation, engages quickly. HEENT: normocephalic, atraumatic; hearing grossly WNL Resp: speaks full sentences w/no SOB w/speech limited to 20s at a time; regular resp effort; no audible wheeez or cough Psych: cooperative, makes appropriate eye contact; tears up w/review of pain/fears but remains engaged; thought process clear; judgment/insight fair to limited Objective Last Vital Signs Temp 98.6 F 12/06/24 07:16 Pulse 50 L 12/06/24 11:44 Resp 10 L 12/06/24 11:44 BP 102/57 L 12/06/24 11:44 Pulse Ox 99 12/06/24 11:44 Laboratory Results - last 24 hr 12/05/24 12/05/24 12/06/24 14:09 22:00 05:47 WBC 26.67 H* RBC 3.91 L Hgb 11.2 L Hct 34.5 L MCV 88 MCH 28.6 MCHC 32.5 RDW 15.3 H Plt Count 509 H MPV 8.7 Immature Gran % 0.9 Neutrophils % 89.3 Lymphocytes % 3.5 Monocytes % 6.0 Eosinophils % 0.0 Basophils % 0.3 Nucleated RBC % 0.0 Absolute Neutrophils 23.82 H Absolute Lymphocytes 0.93 L Absolute Monocytes 1.60 H Absolute Eosinophils 0.00 Absolute Basophils 0.08 RBC Morphology Normal VBG Lactate 1.6 Sodium 137 Potassium 3.7 Chloride 103 Carbon Dioxide 33.7 H Anion Gap 0.3 L BUN 7 Creatinine 0.9 Est GFR (CKD-EPI 2020) 95.97 Glucose 142 H Calcium 9.9 Total Bilirubin 0.41 AST 26 ALT 13 L Alkaline Phosphatase 89 Total Protein 5.8 L Albumin 2.2 L Urine Color Yellow Urine Clarity Clear Urine pH 5.5 Ur Specific [place] <= 1.005 Urine Protein Negative Urine Ketones Negative Urine Blood Negative Urine Nitrite Negative Urine Bilirubin Negative Urine Urobilinogen 0.2 Ur Leukocyte Esterase Negative Urine Glucose Negative Random Vancomycin 9.3 12/06/24 12/06/24 06:20 07:00 WBC Cancelled RBC Cancelled Hgb Cancelled Hct Cancelled MCV Cancelled MCH Cancelled MCHC Cancelled RDW Cancelled Plt Count Cancelled MPV Cancelled Immature Gran % Neutrophils % Lymphocytes % Monocytes % Eosinophils % Basophils % Nucleated RBC % Absolute Neutrophils Absolute Lymphocytes Absolute Monocytes Absolute Eosinophils Absolute Basophils RBC Morphology VBG Lactate Sodium Cancelled Potassium Cancelled Chloride Cancelled Carbon Dioxide Cancelled Anion Gap Cancelled BUN Cancelled Creatinine Cancelled Est GFR (CKD-EPI 2020) Cancelled Glucose Cancelled Calcium Cancelled Total Bilirubin Cancelled AST Cancelled ALT Cancelled Alkaline Phosphatase Cancelled Total Protein Cancelled Albumin Cancelled Urine Color Urine Clarity Urine pH Ur Specific [place] Urine Protein Urine Ketones Urine Blood Urine Nitrite Urine Bilirubin Urine Urobilinogen Ur Leukocyte Esterase Urine Glucose Random Vancomycin
[2024-12-06] MEDS: fentaNYL 50 MCG PATCH TD (13:06)
[2024-12-06] MEDS: fentaNYL 100 MCG PATCH TD (13:10)
--- NOTE | 2024-12-06 14:02 | W.NUTRFU ---
Date of service: 12/06/24 Time of Service: 14:02 Nutrition Note NOTE: Ronaldo is 64to male being treated for septic chock, osteomyelitis of pelvis which is described as incurable in nature. PT with history of rectal ca with mets to bone. Related cachexia with noted ~5kg further wt loss over the last 4 months. Pt ordered for regular/normal diet. Will supplement meals with oral nutrition supplement (Boost) at all meals to allow pt access to easy source of protein/calories. Palliative care working on pain management and discharge to hospice services. Low level of nutrition intervention planned at this time limited to encouraging po intake and supplementing with above ONS TID. Will continue to follow for any indicated nutrition needs. Time Spent in Nutritional Counseling and Treatment: 5 minutes
[2024-12-06] MEDS: Nicotine 21 MG/24 HR PATCH TD (14:17)
[2024-12-06] MEDS: Acetaminophen 500 MG TAB 1000 MG PO ×2 (14:55→20:31)
--- NOTE | 2024-12-06 17:01 | W.PM.PROGNOT ---
Date of Service Date of service: 12/06/24 Time of Service: 17:01 Assessment and Plan Assessment and plan (1) Smoker: Status: Acute Assessment and plan: recommend complete cessation. (2) Acute DVT (deep venous thrombosis): Status: Acute Assessment and plan: pt on eliquis 5mg po bid (3) Palliative care encounter: Status: Acute Assessment and plan: Notes reviewed from Dr Loyola, appreciate consult (4) Advanced care planning/counseling discussion: Status: Acute (5) History of alcohol abuse: Status: Acute Assessment and plan: noted (6) Abnormal weight loss: Status: Acute Assessment and plan: Most likely 2/2 underlying disease. 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 Pt does want to continue therapy in hopes of remission (8) Osteomyelitis, pelvis: Status: Acute Assessment and plan: admission ct of chest/abd/pelvis MPRESSION: 1. No evidence of thoracic metastatic disease. 2. No acute pulmonary process. 3. There has been marked progression of the destructive changes seen in the) EM and buttocks since the prior examination. There is now extension to the right ischium with destructive changes of the bones suggesting osteomyelitis. Metastatic focus cannot be excluded. 4. There are also multiple small ring-enhancing lesions in the soft tissues in the right thigh suspicious for metastatic disease or abscesses. 5. There are now destructive changes involving the right acetabulum with an associated ring-enhancing fluid collection. Infection versus metastatic disease. 6. Distended gallbladder without evidence of cholelithiasis. 7. Mild hepatomegaly. No evidence of a hepatic metastasis. Upper limits of normal in size spleen. 8. Findings were discussed with Dr. Cano at 12 05 p.m. on 12/05/2024 (9) Septic shock: Status: Acute Assessment and plan: continue with vanc and zosyn as well as pressure support with levophed as needed. CW IVF as well 12.06.27 Pt did have an increase in his WBC and still needs pressure support. Pt does appear to have failed outpatient therapy with levaquin and flagyl. Pt does have an elevated esr as well. Cultures are pending. PT did have a resolution of his elevated lactate. CRP is elevated. Pt is on vancomycin and zosyn. 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 Says pain has fair control. POC d/w pt as well as nursing staff during ICU huddle Exam Narrative Exam Narrative: Head eyes ears nose and throat: Normocephalic atraumatic mucous membranes are moist extraocular motions are intact Neck: No lymphadenopathy no JVD no thyromegaly Cardiovascular: Regular rate and rhythm no murmur rubs or gallop Lungs: Clear to auscultation bilaterally with good air exchange Abdomen: Scaphoid with very little abdominal fat Extremities: No cyanosis clubbing or edema bilaterally he is actually has decreased muscle mass throughout Buttocks: Patient refused to take his dressing down for evaluation Neurologic: Cranial nerves II through XII intact as tested Psych: He is alert and oriented x 3 no apparent distress General: 64-year-old gentleman appears older than his stated age with significant muscle mass loss throughout. Objective Last Vital Signs Temp 37.6 C H 12/06/24 14:02 Pulse 54 L 12/06/24 15:13 Resp 12 12/06/24 15:13 BP 97/54 L 12/06/24 15:13 Pulse Ox 99 12/06/24 15:13 Laboratory Results - last 24 hr 12/05/24 12/06/24 12/06/24 22:00 05:47 06:20 WBC 26.67 H* RBC 3.91 L Hgb 11.2 L Hct 34.5 L MCV 88 MCH 28.6 MCHC 32.5 RDW 15.3 H Plt Count 509 H MPV 8.7 Immature Gran % 0.9 Neutrophils % 89.3 Lymphocytes % 3.5 Monocytes % 6.0 Eosinophils % 0.0 Basophils % 0.3 Nucleated RBC % 0.0 Absolute Neutrophils 23.82 H Absolute Lymphocytes 0.93 L Absolute Monocytes 1.60 H Absolute Eosinophils 0.00 Absolute Basophils 0.08 RBC Morphology Normal VBG Lactate 1.6 Sodium 137 Cancelled Potassium 3.7 Cancelled Chloride 103 Cancelled Carbon Dioxide 33.7 H Cancelled Anion Gap 0.3 L Cancelled BUN 7 Cancelled Creatinine 0.9 Cancelled Est GFR (CKD-EPI 2020) 95.97 Cancelled Glucose 142 H Cancelled Calcium 9.9 Cancelled Total Bilirubin 0.41 Cancelled AST 26 Cancelled ALT 13 L Cancelled Alkaline Phosphatase 89 Cancelled Total Protein 5.8 L Cancelled Albumin 2.2 L Cancelled Random Vancomycin 9.3 12/06/24 12/06/24 07:00 18:00 WBC Cancelled RBC Cancelled Hgb Cancelled Hct Cancelled MCV Cancelled MCH Cancelled MCHC Cancelled RDW Cancelled Plt Count Cancelled MPV Cancelled Immature Gran % Neutrophils % Lymphocytes % Monocytes % Eosinophils % Basophils % Nucleated RBC % Absolute Neutrophils Absolute Lymphocytes Absolute Monocytes Absolute Eosinophils Absolute Basophils RBC Morphology VBG Lactate Sodium Potassium Chloride Carbon Dioxide Anion Gap BUN Creatinine Est GFR (CKD-EPI 2020) Glucose Calcium Total Bilirubin AST ALT Alkaline Phosphatase Total Protein Albumin Random Vancomycin Cancelled Time Spent with Patient Time Spent with Patient: 25-34 minutes Time was spent: preparing to see the patient(eg.review tests), obtaining and/or reviewing separately otained hiistory, ordering medications,tests, procedures, referring, communicating with other health child care lead teacher, indepentently interpreting results, counseling the patient and care coordination
--- NOTE | 2024-12-06 17:20 | CHAPLAIN ---
Ronaldo was in bed, clearly in pain at times, when I visited. He didn't seem interested in engaging in a conversation but told me that his backpack is missing since he was in the ER yesterday and his medicines and bankcards are in it. He was very focused on the and not interested in talking about anything else. I checked in with his nurse, who said he has told everyone about his missing backpack and they have been making phone calls to try and locate it.
[2024-12-06] MEDS: Lidocaine 2% Jelly 11 ML SYR UD (17:43)
[2024-12-06] MEDS: Hydrocortisone SOD SUC. 100 MG VIAL IVP (18:55)
[2024-12-06] MEDS: Norepinephrine in D5W 8 MG/250 ML BAG 26 MG IV (19:36)
[2024-12-07] VITALS (114 sets, daily range): BP systolic 78–131; BP diastolic 43–96; PULSE 38–120; RESP 5–21; TEMP 37–37.3; O2SAT 84–99
[2024-12-07] MEDS: VANCOMYCIN/WATER (PEG) 1 GM/200 ML BAG IV ×2 (00:05→18:16)
[2024-12-07] MEDS: PIPERACILLIN/TAZO 3.375 GM in Normal Saline 50 ML IVPB ×3 (02:25→17:54)
[2024-12-07] MEDS: MORPHine 4 MG/ML SYR IVP ×5 (04:24→12:52)
[2024-12-07] MEDS: Normal Saline 1,000 ML 150 ML IV ×3 (04:45→15:15)
[2024-12-07] MEDS: Levothyroxine 100 MCG TAB PO (05:57)
[2024-12-07] MEDS: Normal Saline Flush 10 ML SYR IVP ×4 (05:57→20:56)
[2024-12-07] MEDS: Norepinephrine in D5W 8 MG/250 ML BAG 21 MG IV (05:59)
[2024-12-07 06:14] LABS: Abs Immature Grans 0.13 10^3/uL (0.0-0.06); Absolute Basophil Count 0.02 10^3/uL (0.0-0.2); Basophils % 0.1 %; Eosinophils % 0.1 %; HCT 32.6 % (40.0-50.0); HGB 10.5 g/dL (13.5-17.5); Immature Grans % 0.7 %; Lymphocytes % 1.9 %; MCHC 32.2 % (32.0-36.0); MCV 90 fL (80-95); MPV 9.3 fL (8.0-11.0); Monocytes % 2.8 %; Neutrophils % 94.4 %; Platelet Count 445 10^3/uL (130-400); RBC 3.62 10^6/uL (4.36-5.78); RDW 15.2 % (11.8-14.1); RDW-SD 50.4 fL
[2024-12-07 06:15] LABS: Absolute Eosinophil Count 0.02 10^3/uL (0.0-0.7); Absolute Lymphocyte Count 0.38 10^3/uL (1.2-3.4); Absolute Monocyte Count 0.55 10^3/uL (0.1-0.8); Absolute Neutrophil Count 18.69 10^3/uL (1.2-6.7)
[2024-12-07 06:18] LABS: ESR 23 mm/hr (0-20)
[2024-12-07 06:34] LABS: ALT 8 U/L (16-63); AST 27 U/L (15-37); Albumin 1.9 g/dL (3.4-5.0); Alkaline Phosphatase 90 U/L (46-116); Anion Gap 5.3 mmol/L (3-11); BUN 6 mg/dL (7-18); Bilirubin, Total 0.39 mg/dL (0.2-1.0); CO2 28.7 mmol/L (21.0-32.0); CREATININE 0.9 mg/dL (0.70-1.30); Calcium 8.9 mg/dL (8.5-10.1); Chloride 99 mmol/L (98-107); Estimated GFR 95.97 (mL/min/1.73m2); Glucose 354 mg/dL (74-106); Sodium 133 mmol/L (136-145); Total Protein 5.4 g/dL (6.4-8.2)
[2024-12-07 06:43] LABS: Procalcitonin 0.21 ng/mL
[2024-12-07] MEDS: Acetaminophen 500 MG TAB 1000 MG PO ×3 (07:56→20:56)
[2024-12-07] MEDS: Apixaban 5 MG TAB PO ×2 (07:56→20:56)
[2024-12-07] MEDS: oxyCODONE 10 MG TAB PO (08:08)
--- NOTE | 2024-12-07 08:42 | PDOC.CMPRO ---
Date of service: 12/07/24 Time of Service: 08:42 Care Management Progress Note Progress Note Text Progress Note Text: Anant was lying in bed all covered up when CM met with him. When asked if he was comfortable he answered NO. He was lying on his right side which he has previously reported is the only position he can lay in. His wounds are on on his left side and the area is very tender. Anant has Fentanyl patches and prn morphine po and IVP available for pain. His doses were increased by Palliative Care yesterday and again today. Anant reported that [facility] does not have the dressings he needs for wound care. Apparently the nurses have been using what is available but he stated it is not as effective as what he has at home. He asked CM to contact [facility] to see if they could bring some of his dressings to the hospital so that his wound could be properly dressed. CM contacted [facility] and the nurse who does his dressing changes graciously delivered the supplies. Anant was very pleased and appreciative. Discharge Potential Discharge Needs: PCP F/U Appt Anticipated Barriers to Discharge: None Identified Patient/Family Education Needs: Review discharge instructions, discuss Ask Me Three Transportation: Private vehicle Plan: Anticipate Anant will be discharged home with a resumption of home health services for wound cane, when medically cleared. He will follow up with his PCP, Palliative Care and plan of care and transport with family. CM will follow and continue to support discharge planning needs. Social Determinants of Health Screening Will the Patient Participate in the Screening?: Declined to provide Do you worry about having a steady place to live?: no
--- NOTE | 2024-12-07 12:20 | PCPN_ITS ---
Date of service: 12/07/24 Time of Service: 12:21 Assessment and Plan Assessment and plan (1) Primary cancer of anal canal: Status: Acute Assessment and plan: Ronaldo is a 64 yo with advanced metastatic anal cancer with chronic osteomyelitis, weight loss. He is now admitted for probable sepsis, despite being on chronic levaquin and metronidazole. Additionally, had bone biopsy 10 days ago at [facility] and acetabular lesion was confirmed to be a metastasis, rather than a new site of osteomyelitis. Please see previous palliative care notes for addl info. I met with Ronaldo today bedside in ICU to f/u on following subjects: . #Cancer related pain: Pt reports that pain is not better and still terrible. Pt always uses same words and numbers to describe pain, so often challenging to tell if he is having better pain relief from a new med or dose of med Pain Meds in last 24 hours: -fentanyl patch total of 150 mcg; change every 48 hours. -IV Morphine total of 30 mg (9 of the 4 mg doses and one 2 mg dose). -Oral oxycodone 40 m dose in last 24 hours. -This comes to MME of 450 mg/24 hrs. Ronaldo reports that the IV morphine works much better. We discussed that it definitely works faster. But does not seem to work very long, as often requesting the IV MS every 1-2 hours for a span of several hours. Assess: Ronaldo has significant pain from longstanding extensive abscess and osteomyelitis and bone mets. He is always suspicious that prescriber will take away my pain medicine or not send in refills on time. It has been hard to build trust, but we have slowly been doing so. Discussed options for pain medication: Ronaldo wants to go home on IV morphine drip, but this is only possible if he admits to hospice and he is very clear that he is NOT ready to go to hospice. I urged him to to trial oral morphine to see if works better than the oxycodone. If he gets sicker, would transition to Morphine drip. BUt his plan is to go home tomorrow. In the end, he is willing to try following for 24 hours: -Continue fentanyl patch at 150 mcg, change Q48h -Change oral short acting opioid to Morphine IR 30 (or 45) mg every 3 hours as needed. I have recommended that he ask for it SOONER RATHER THAN LATER. NOte that both of these doses are theoretically lower then the 40 mg oxycodone. But MS might be a better drug for him. -May need increase MSIR dose to 45 or even 60 mg, as uses high dose. -KEEP Morphine IV order active. I suspect patient will continue to use. Since it seems to only last an hour, suggest increasing dose to 6 or 8 mg every 1-2 hours as needed. -RE-eval in 24-48 hours. Patient to decide if he feels that oxycodone IR or oral morphine IR working better. (may want to switch back). -another option I have considered is switching him to methadone TID for pain. Ronaldo has not been interested -Above discussed with Dr. Lopes, who ohas asked me to write these change orders. #Goals of care: Patient continues to want everything done. Does NOT want hospice. Willing to avail himself with any treatment recommendations that may result in prolonged life. He wishes to have CPR and even be put on a ventilator. He reiterates to me that his eyspep-no-hsl Leticia is his healthcare agent and that she is a 1 to decide when to pull the plug when there is no hope at all left. PC today with oncologist Dr. Everett. -HE will discuss with Radiation Oncologist whether palliative radiation to acetabular lesion is possible (he worries that area has already had maximum radiation). -He wants to see how Rosalee gets through this before considering offering chemo. CHemo would be VERY HIGH RISK, given chronic osteomyelitis. I wonder if Anant might be willing to take the risk. Both Dr. Everett and I agree that Ronaldo meets criteria for Hospice with less than 6 months prognosis. But we both understand that he is totally opposed to rosalind and may never agree to hospice, end up spending the last part of his life in the hospital. Assessment: For now patient remains full code and would like to have everything done possible. His plan is to return home tomorrow . Plan: I will work on talking with oncologist in the next few days to see if there are any further options available to patient regarding palliative chemotherapy, radiation therapy, etc. Palliative Care will plan to see him again tomorrow to help with pain control. (2) Metastatic cancer: Status: Acute (3) Osteomyelitis, pelvis: Status: Acute (4) Cancer related pain: Status: Acute (5) Palliative care encounter: Status: Acute (6) Advanced care planning/counseling discussion: Status: Acute Subjective Subjective Interval history since last seen: See A/P Objective Last Vital Signs Temp 37.2 C 12/06/24 20:15 Pulse 54 L 12/07/24 06:31 Resp 16 12/07/24 06:31 BP 100/85 12/07/24 06:31 Pulse Ox 84 L 12/07/24 06:16 Laboratory Results - last 24 hr 12/06/24 12/07/24 18:00 05:39 WBC 19.80 H RBC 3.62 L Hgb 10.5 L Hct 32.6 L MCV 90 MCH 29.0 MCHC 32.2 RDW 15.2 H Plt Count 445 H MPV 9.3 Immature Gran % 0.7 Neutrophils % 94.4 Lymphocytes % 1.9 Monocytes % 2.8 Eosinophils % 0.1 Basophils % 0.1 Nucleated RBC % 0.0 Absolute Neutrophils 18.69 H Absolute Lymphocytes 0.38 L Absolute Monocytes 0.55 Absolute Eosinophils 0.02 Absolute Basophils 0.02 ESR 23 H Sodium 133 L Potassium 3.0 L Chloride 99 Carbon Dioxide 28.7 Anion Gap 5.3 BUN 6 L Creatinine 0.9 Est GFR (CKD-EPI 2020) 95.97 Glucose 354 H Calcium 8.9 Total Bilirubin 0.39 AST 27 ALT 8 L Alkaline Phosphatase 90 Total Protein 5.4 L Albumin 1.9 L Procalcitonin 0.21 Random Vancomycin Cancelled
[2024-12-07] MEDS: Nicotine 21 MG/24 HR PATCH TD (15:10)
[2024-12-07] MEDS: MORPHine IR 15 MG TAB 30 MG PO ×3 (15:17→20:57)
--- NOTE | 2024-12-07 17:27 | W.PM.PROGNOT ---
Date of Service Date of service: 12/07/24 Time of Service: 17:27 Assessment and Plan Assessment and plan (1) Smoker: Status: Acute Assessment and plan: recommend complete cessation. (2) Acute DVT (deep venous thrombosis): Status: Acute Assessment and plan: pt on eliquis 5mg po bid (3) Palliative care encounter: Status: Acute Assessment and plan: Notes reviewed from Dr Loyola, appreciate consult (4) Advanced care planning/counseling discussion: Status: Acute Assessment and plan: PT remains a full code (5) History of alcohol abuse: Status: Acute Assessment and plan: noted (6) Abnormal weight loss: Status: Acute Assessment and plan: Most likely 2/2 underlying disease. 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 Pt does want to continue therapy in hopes of remission (8) Osteomyelitis, pelvis: Status: Acute Assessment and plan: admission ct of chest/abd/pelvis MPRESSION: 1. No evidence of thoracic metastatic disease. 2. No acute pulmonary process. 3. There has been marked progression of the destructive changes seen in the) EM and buttocks since the prior examination. There is now extension to the right ischium with destructive changes of the bones suggesting osteomyelitis. Metastatic focus cannot be excluded. 4. There are also multiple small ring-enhancing lesions in the soft tissues in the right thigh suspicious for metastatic disease or abscesses. 5. There are now destructive changes involving the right acetabulum with an associated ring-enhancing fluid collection. Infection versus metastatic disease. 6. Distended gallbladder without evidence of cholelithiasis. 7. Mild hepatomegaly. No evidence of a hepatic metastasis. Upper limits of normal in size spleen. 8. Findings were discussed with Dr. Cano at 12 05 p.m. on 12/05/2024 12/07/24 PT remains on vanc and zosyn. Await culture results. My concerns include the possibility that pt has failed outpatient rx with levaquin and flagyl which will lead to a very difficult decision in regards to po abx at home. My plan is to discuss this with ID at [facility] in the AM (9) Septic shock: Status: Acute Assessment and plan: continue with vanc and zosyn as well as pressure support with levophed as needed. CW IVF as well 12.06.27 Pt did have an increase in his WBC and still needs pressure support. Pt does appear to have failed outpatient therapy with levaquin and flagyl. Pt does have an elevated esr as well. Cultures are pending. PT did have a resolution of his elevated lactate. CRP is elevated. Pt is on vancomycin and zosyn. 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 Pt does appear to be responding to abx and iv fluid resuscitation so will not continue with steroids at this point Subjective Subjective Interval history since last seen: Pt seen and examined in the ICU today. Pt anxious about wanting to go home. POC d/w pt, Dr Loyola, as well as bedside nurse during ICU huddle Exam Narrative Exam Narrative: Head eyes ears nose and throat: Normocephalic atraumatic mucous membranes are moist extraocular motions are intact Neck: No lymphadenopathy no JVD no thyromegaly Cardiovascular: Regular rate and rhythm no murmur rubs or gallop Lungs: Clear to auscultation bilaterally with good air exchange Abdomen: Scaphoid with very little abdominal fat, colostomy appliance in place Extremities: No cyanosis clubbing or edema bilaterally he is actually has decreased muscle mass throughout Buttocks: Patient refused to take his dressing down for evaluation Neurologic: Cranial nerves II through XII intact as tested Psych: He is alert and oriented x 3 no apparent distress General: 64-year-old gentleman appears older than his stated age with significant muscle mass loss throughout. Objective Last Vital Signs Temp 37.3 C 12/07/24 14:44 Pulse 71 12/07/24 16:01 Resp 16 12/07/24 16:01 BP 124/71 12/07/24 16:00 Pulse Ox 96 12/07/24 16:01 Laboratory Results - last 24 hr 12/07/24 05:39 WBC 19.80 H RBC 3.62 L Hgb 10.5 L Hct 32.6 L MCV 90 MCH 29.0 MCHC 32.2 RDW 15.2 H Plt Count 445 H MPV 9.3 Immature Gran % 0.7 Neutrophils % 94.4 Lymphocytes % 1.9 Monocytes % 2.8 Eosinophils % 0.1 Basophils % 0.1 Nucleated RBC % 0.0 Absolute Neutrophils 18.69 H Absolute Lymphocytes 0.38 L Absolute Monocytes 0.55 Absolute Eosinophils 0.02 Absolute Basophils 0.02 ESR 23 H Sodium 133 L Potassium 3.0 L Chloride 99 Carbon Dioxide 28.7 Anion Gap 5.3 BUN 6 L Creatinine 0.9 Est GFR (CKD-EPI 2020) 95.97 Glucose 354 H Calcium 8.9 Total Bilirubin 0.39 AST 27 ALT 8 L Alkaline Phosphatase 90 Total Protein 5.4 L Albumin 1.9 L Procalcitonin 0.21 Time Spent with Patient Time Spent with Patient: 25-34 minutes Time was spent: preparing to see the patient(eg.review tests), obtaining and/or reviewing separately otained hiistory, ordering medications,tests, procedures, referring, communicating with other health medicare specialist, indepentently interpreting results, counseling the patient and care coordination
[2024-12-07] MEDS: Norepinephrine in D5W 8 MG/250 ML BAG 18.8 MG IV (19:54)
[2024-12-07] MEDS: Potassium Chloride 20 MEQ TABCR 40 MEQ PO (20:55)
[2024-12-07 20:56] LABS: CRP, High Sensitivity >15.00 mg/L (See Note)
[2024-12-07] MEDS: Calcium Carbonate *TUMS* 500 MG CHEW 1000 MG PO (21:34)
[2024-12-08] VITALS (80 sets, daily range): BP systolic 79–130; BP diastolic 45–75; PULSE 47–77; RESP 8–24; TEMP 37.5; O2SAT 95–98
[2024-12-08] MEDS: MORPHine IR 15 MG TAB 30 MG PO ×7 (00:22→19:11)
[2024-12-08] MEDS: Normal Saline 1,000 ML 150 ML IV (01:40)
[2024-12-08] MEDS: PIPERACILLIN/TAZO 3.375 GM in Normal Saline 50 ML IVPB ×3 (01:53→17:49)
[2024-12-08 06:37] LABS: HCT 35.3 % (40.0-50.0); HGB 11.3 g/dL (13.5-17.5); MCH 28.5 pg (27.0-33.0); MCV 89 fL (80-95); MPV 8.9 fL (8.0-11.0); Platelet Count 396 10^3/uL (130-400); RBC 3.97 10^6/uL (4.36-5.78); RDW 15.2 % (11.8-14.1); RDW-SD 49.2 fL; WBC 22.32 10^3/uL (4.4-10.8)
[2024-12-08 06:59] LABS: Anion Gap 4.3 mmol/L (3-11); BUN 5 mg/dL (7-18); CO2 31.7 mmol/L (21.0-32.0); CREATININE 0.8 mg/dL (0.70-1.30); Calcium 9.5 mg/dL (8.5-10.1); Chloride 105 mmol/L (98-107); Estimated GFR 99.44 (mL/min/1.73m2); Glucose 99 mg/dL (74-106); Magnesium 1.6 mg/dL (1.8-2.4); Potassium 3.1 mmol/L (3.5-5.1); Sodium 141 mmol/L (136-145)
[2024-12-08] MEDS: Levothyroxine 100 MCG TAB PO (07:01)
[2024-12-08 07:26] LABS: Vancomycin, Random 11.7 ug/mL
[2024-12-08] MEDS: Norepinephrine in D5W 8 MG/250 ML BAG 18.8 MG IV (08:42)
[2024-12-08] MEDS: Potassium Chloride 20 MEQ TABCR 40 MEQ PO ×2 (08:47→20:11)
[2024-12-08] MEDS: Apixaban 5 MG TAB PO ×2 (08:47→20:56)
[2024-12-08] MEDS: Normal Saline Flush 10 ML SYR IVP ×2 (08:47→20:10)
[2024-12-08] MEDS: Acetaminophen 500 MG TAB 1000 MG PO ×3 (08:47→20:11)
[2024-12-08] MEDS: POTASSIUM CHLORIDE/0.9% NACL 1,000 ML 150 MEQ IV ×3 (09:20→22:46)
[2024-12-08] MEDS: VANCOMYCIN/WATER (PEG) 1 GM/200 ML BAG IVPB ×2 (10:21→22:42)
--- NOTE | 2024-12-08 10:53 | CMPROGNOTE_ITS ---
Date of service: 12/08/24 Time of Service: 10:53 Care Management Progress Note Progress Note Text Progress Note Text: Anant was lying in bed when CM met with him. He was more awake and interactive than previously with CM. Anant had told CM that no matter what happened, he was going to leave on Wednesday, which is today. He obviously changed his mind as he is still requiring pressors to maintain his blood pressure. Anant stated that his dressing change went much better with the supplies that [facility] provided yesterday. He will take any remaining supplies home with him at discharge.Anant is still experiencing a lot of pain and had been given an extra dose of morphine shortly before the visit. Anant stated that he planned to nap soon, so CM meño the visit to a close. Discharge Potential Discharge Needs: PCP F/U Appt Anticipated Barriers to Discharge: Medical Status Patient/Family Education Needs: Review discharge instructions, discuss Ask Me Three Transportation: Private vehicle Plan: Anticipate Anant will be discharged home with a resumption of home health services for wound cane, when medically cleared. He will follow up with his PCP, Palliative Care and plan of care and transport with family. CM will follow and continue to support discharge planning needs. Social Determinants of Health Screening Will the Patient Participate in the Screening?: Declined to provide Do you worry about having a steady place to live?: no
[2024-12-08] MEDS: fentaNYL 100 MCG PATCH TD (11:59)
[2024-12-08] MEDS: fentaNYL 50 MCG PATCH TD (12:00)
--- NOTE | 2024-12-08 12:00 | PGE_ITS ---
Date of Service Date of service: 12/08/24 Time of Service: 12:02 Assessment and Plan Assessment and plan (1) Smoker: Status: Acute Assessment and plan: recommend complete cessation. 12.08.24 Nicoderm patch at 21mcg daily (2) Acute DVT (deep venous thrombosis): Status: Acute Assessment and plan: pt on eliquis 5mg po bid (3) Palliative care encounter: Status: Acute Assessment and plan: Notes reviewed from Dr Loyola, appreciate consult (4) Advanced care planning/counseling discussion: Status: Acute Assessment and plan: PT remains a full code (5) History of alcohol abuse: Status: Acute Assessment and plan: noted (6) Abnormal weight loss: Status: Acute Assessment and plan: Most likely 2/2 underlying disease. 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 Pt does want to continue therapy in hopes of remission (8) Osteomyelitis, pelvis: Status: Acute Assessment and plan: admission ct of chest/abd/pelvis MPRESSION: 1. No evidence of thoracic metastatic disease. 2. No acute pulmonary process. 3. There has been marked progression of the destructive changes seen in the) EM and buttocks since the prior examination. There is now extension to the right ischium with destructive changes of the bones suggesting osteomyelitis. Me tastatic focus cannot be excluded. 4. There are also multiple small ring-enhancing lesions in the soft tissues in the right thigh suspicious for metastatic disease or abscesses. 5. There are now destructive changes involving the right acetabulum with an associated ring-enhancing fluid collection. Infection versus metastatic disease. 6. Distended gallbladder without evidence of cholelithiasis. 7. Mild hepatomegaly. No evidence of a hepatic metastasis. Upper limits of normal in size spleen. 8. Findings were discussed with Dr. Cano at 12 05 p.m. on 12/05/2024 12/07/24 PT remains on vanc and zosyn. Await culture results. My concerns include the possibility that pt has failed outpatient rx with levaquin and flagyl which will lead to a very difficult decision in regards to po abx at home. My plan is to discuss this with ID at [facility] in the AM (9) Septic shock: Status: Acute Assessment and plan: continue with vanc and zosyn as well as pressure support with levophed as needed. CW IVF as well 1.. Pt did have an increase in his WBC and still needs pressure support. Pt does appear to have failed outpatient therapy with levaquin and flagyl. Pt does have an elevated esr as well. Cultures are pending. PT did have a resolution of his elevated lactate. CRP is elevated. Pt is on vancomycin and zosyn. 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 Pt does appear to be responding to abx and iv fluid resuscitation so will not continue with steroids at this point Subjective Subjective Interval history since last seen: Pt seen and examined this am. Pt poc d/w pt as well as bedside nurse during ICU huddle. D/W Dr. Loyola yesterday (palliative) as well Exam Narrative Exam Narrative: Head eyes ears nose and throat: Normocephalic atraumatic mucous membranes are moist extraocular motions are intact Neck: No lymphadenopathy no JVD no thyromegaly Cardiovascular: Regular rate and rhythm no murmur rubs or gallop Lungs: Clear to auscultation bilaterally with good air exchange Abdomen: Scaphoid with very little abdominal fat, colostomy appliance in place Extremities: No cyanosis clubbing or edema bilaterally he is actually has decreased muscle mass throughout Buttocks: Patient refused to take his dressing down for evaluation Neurologic: Cranial nerves II through XII intact as tested Psych: He is alert and oriented x 3 no apparent distress General: 64-year-old gentleman appears older than his stated age with signi ficant muscle mass loss throughout. Objective Last Vital Signs Temp 37.5 C 12/08/24 09:49 Pulse 52 L 12/08/24 09:02 Resp 12 12/08/24 09:02 BP 99/66 L 12/08/24 09:02 Pulse Ox 97 12/08/24 08:31 Laboratory Results - last 24 hr 12/07/24 12/08/24 05:39 05:22 WBC 22.32 H RBC 3.97 L Hgb 11.3 L Hct 35.3 L MCV 89 MCH 28.5 MCHC 32.0 RDW 15.2 H Plt Count 396 MPV 8.9 Sodium 141 Potassium 3.1 L Chloride 105 Carbon Dioxide 31.7 Anion Gap 4.3 BUN 5 L Creatinine 0.8 Est GFR (CKD-EPI 2020) 99.44 Glucose 99 Calcium 9.5 Magnesium 1.6 L C-React Prot High Sens >15.00 Random Vancomycin 11.7 Time Spent with Patient Time Spent with Patient: 25-34 minutes Time was spent: preparing to see the patient(eg.review tests), obtaining and/or reviewing separately otained hiistory, ordering medications,tests, procedures, referring, communicating with other health career based intervention coordinator, indepentently interpreting results, counseling the patient and care coordination
[2024-12-08] MEDS: MORPHine 4 MG/ML SYR IVP ×3 (12:45→19:12)
--- NOTE | 2024-12-08 13:13 | PHA.REVIEW2 ---
Pharmacy Admission Review Admission Clinical Review Admission Pharmacy Review: Septic shock (Acute) Acute DVT (deep venous thrombosis) (Acute) Osteomyelitis, pelvis (Acute) Metastatic cancer (Acute) Primary cancer of anal canal (Acute) Cancer cachexia (Acute) High risk medication use (Acute) Abnormal weight loss (Acute) History of alcohol abuse (Acute) Advanced care planning/counseling discussion (Acute) Palliative care encounter (Acute) Cancer related pain (Acute) Anal squamous cell carcinoma (Acute) Smoker (Acute) No Known Allergies Allergy (Verified 12/05/24 08:49) Resuscitation Status Full Code Height 6 ft 2 in Weight 58.3 kg Comments Comments/Follow Ups: Watch for addition of any more respiratory depressive meds. Patient has 3 orders for PRN morphine and fentanyl patch. Pharmacy Admission Review Renal Dosing Renal Dosing: BUN 5 mg/dL (7-18) L 12/08/24 05:22 Creatinine 0.8 mg/dL (0.70-1.30) 12/08/24 05:22 Medications needing adjustments: Reviewed (CrCl 62.3 mL/min) List of meds needing interventions: Current medications are okay Anticoagulation Anticoagulation: Hgb 11.3 g/dL (13.5-17.5) L 12/08/24 05:22 Hct 35.3 % (40.0-50.0) L 12/08/24 05:22 Plt Count 396 10^3/uL (130-400) 12/08/24 05:22 INR 1.3 (0.9-1.1) H 12/05/24 09:07 Creatinine 0.8 mg/dL (0.70-1.30) 12/08/24 05:22 DVT Prophylaxis: Reviewed (Hgb increased from 10.5) Medications: Apixaban (5mg PO BID) Opiate Usage Evaluate Pain Scale/Pains Meds: Intervened (Fentanyl 150mcg/hr patch, morphine 8mg IVP q1h PRN - no doses given, morphine 4mg IVP q4h PRN - 4mg/24hrs - order was added on this afternoon and I verified with provider due to the morphine 8mg IVP PRN order but per provider wanted both, morphine IR 30mg q3h PRN - 240mg/24hrs ) Scheduled Bowel Reg ordered if on Opiates?: Yes (Miralax HS) Relevant Labs Relevant Labs: ESR 23 mm/hr (0-20) H 12/07/24 05:39 Sodium 141 mmol/L (136-145) 12/08/24 05:22 Potassium 3.1 mmol/L (3.5-5.1) L 12/08/24 05:22 Chloride 105 mmol/L (98-107) 12/08/24 05:22 Magnesium 1.6 mg/dL (1.8-2.4) L 12/08/24 05:22 C-Reactive Protein 6.90 mg/dL (<or=0.5) H 12/05/24 09:07 Electrolytes, C-Reactive P, ESR: Reviewed (K 3.1 - receiving KNS infusion, Mg 1.6) Cardiac Review Cardiac Review: Troponin I Cancelled 12/05/24 11:45 Blood Pressure 99/60 1201 Blood Pressure 117/49 1146 Blood Pressure 90/66 1131 Blood Pressure 105/65 1116 Blood Pressure 98/49 1101 Blood Pressure 95/71 1046 Blood Pressure 100/46 1031 Blood Pressure 109/66 1018 Blood Pressure 101/70 1001 BP, HR, EF%: Reviewed (HR 55) List meds needing interventions: Has order for Levophed drip at 15 mls/hr, last decreased today at 1048 from 18.8mls/hr QTc Review QTc: Reviewed (4338 from 12/05/24) IV to PO Switch IV Medications: Reviewed (morphine, Levophed drip, Zosyn and vancomycin) Home Meds Home Med List reviewed: Reviewed Relevent Home Meds Not ordered & why?: levofloxacin (on meropenem and vancomycin), metronidazole (on meropenem and vancomycin) and oxycodone (has multiple PRN morphine orders) Current Meds Current Medication Order Review: Reviewed Pharmacy Antibiotic Review Relevant Labs: Relevant Labs 12/07/24 05:39 C-React Prot High Sens >15.00 WBC 22.32 10^3/uL (4.4-10.8) H 12/08/24 05:22 Procalcitonin 0.21 ng/mL 12/07/24 05:39 Temperature 37.5 C Microbiology 12/05/24 09:47 Blood Culture - Preliminary Blood NO GROWTH 72 HOURS 12/05/24 09:07 Blood Culture - Preliminary Blood NO GROWTH 72 HOURS Pharmacy Antibiotic Activity: Abx regimen adjustment (increased vancomycin interval from q18h to q12h) and C/S review Comments: Patient is on Zosyn and vancomycin, day 3, for septic shock / osteomyelitis. Vancomycin frequency increased to 1000mg q12h due to level this morning of 11.7 at 0522. Predicated AUC 539 and trough of 15.3. Level ordered for tomorrow morning with labs due to change in frequency. WBC increased from 19.8 and blood cultures showing no growth. Comments Comments/Follow Ups: Watch for addition of any more respiratory depressive meds. Patient has 3 orders for PRN morphine and fentanyl patch.
[2024-12-08] MEDS: Lidocaine 2% Jelly 11 ML SYR UD (13:30)
[2024-12-08] MEDS: Nicotine 21 MG/24 HR PATCH TD (19:13)
[2024-12-08] MEDS: Hydrocortisone SOD SUC. 100 MG VIAL IVP (20:09)
[2024-12-08] MEDS: Magnesium Oxide 400 MG TAB PO (20:11)
[2024-12-08] MEDS: Norepinephrine in D5W 8 MG/250 ML BAG 22.5 MG IV (21:45)
[2024-12-09] VITALS (109 sets, daily range): BP systolic 66–137; BP diastolic 26–85; PULSE 43–90; RESP 10–21; TEMP 36.7–37.5; O2SAT 93–99
[2024-12-09] MEDS: PIPERACILLIN/TAZO 3.375 GM in Normal Saline 50 ML IVPB ×3 (01:45→18:42)
[2024-12-09] MEDS: MORPHine IR 15 MG TAB 30 MG PO ×6 (02:00→22:09)
[2024-12-09] MEDS: Hydrocortisone SOD SUC. 100 MG VIAL 50 MG IVP ×3 (03:55→21:07)
[2024-12-09] MEDS: Normal Saline Flush 10 ML SYR IVP ×5 (03:55→22:24)
[2024-12-09] MEDS: POTASSIUM CHLORIDE/0.9% NACL 1,000 ML 150 MEQ IV (04:59)
[2024-12-09] MEDS: Levothyroxine 100 MCG TAB PO (05:34)
[2024-12-09 07:09] LABS: Abs Immature Grans 0.17 10^3/uL (0.0-0.06); Absolute Neutrophil Count 21.99 10^3/uL (1.2-6.7); Basophils % 0.2 %; Eosinophils % 0.1 %; HCT 40.9 % (40.0-50.0); HGB 12.8 g/dL (13.5-17.5); Immature Grans % 0.7 %; Lymphocytes % 1.6 %; MCH 28.4 pg (27.0-33.0); MCHC 31.3 % (32.0-36.0); MCV 91 fL (80-95); MPV 9.1 fL (8.0-11.0); Monocytes % 1.3 %; Neutrophils % 96.1 %; Platelet Count 465 10^3/uL (130-400); RDW 15.9 % (11.8-14.1); RDW-SD 52.5 fL; WBC 22.88 10^3/uL (4.4-10.8)
[2024-12-09 07:14] LABS: Absolute Basophil Count 0.05 10^3/uL (0.0-0.2); Absolute Eosinophil Count 0.02 10^3/uL (0.0-0.7); Absolute Lymphocyte Count 0.37 10^3/uL (1.2-3.4)
[2024-12-09 07:23] LABS: Diff Comment Diff Reviewed; RBC Morphology Normal
[2024-12-09 07:29] LABS: ALT 12 U/L (16-63); AST 26 U/L (15-37); Alkaline Phosphatase 103 U/L (46-116); Anion Gap 5.5 mmol/L (3-11); BUN 5 mg/dL (7-18); Bilirubin, Total 0.38 mg/dL (0.2-1.0); CO2 29.5 mmol/L (21.0-32.0); CREATININE 0.8 mg/dL (0.70-1.30); Calcium 10.3 mg/dL (8.5-10.1); Chloride 105 mmol/L (98-107); Estimated GFR 99.44 (mL/min/1.73m2); Glucose 132 mg/dL (74-106); Sodium 140 mmol/L (136-145); Total Protein 6.1 g/dL (6.4-8.2)
[2024-12-09 07:34] LABS: Potassium 4.5 mmol/L (3.5-5.1); Vancomycin, Random 17.6 ug/mL
[2024-12-09] MEDS: MORPHine 4 MG/ML SYR IVP (08:19)
[2024-12-09] MEDS: Acetaminophen 500 MG TAB 1000 MG PO ×3 (08:20→20:26)
[2024-12-09] MEDS: Apixaban 5 MG TAB PO ×2 (08:23→20:26)
[2024-12-09] MEDS: Magnesium Oxide 400 MG TAB PO ×2 (08:23→20:25)
[2024-12-09] MEDS: Normal Saline 1,000 ML 150 ML IV ×2 (09:30→09:31)
[2024-12-09] MEDS: Calcium Carbonate *TUMS* 500 MG CHEW 1000 MG PO ×2 (10:17→18:49)
[2024-12-09] MEDS: Norepinephrine in D5W 8 MG/250 ML BAG 16.9 MG IV (10:31)
[2024-12-09] MEDS: VANCOMYCIN/WATER (PEG) 1 GM/200 ML BAG IVPB ×2 (10:59→22:19)
--- NOTE | 2024-12-09 12:48 | W.PM.PROGNOT ---
Date of Service Date of service: 12/22/24 Time of Service: 17:22 Objective Last Vital Signs Temp 37.5 C 12/09/24 12:26 Pulse 72 12/09/24 11:31 Resp 13 12/09/24 11:31 BP 137/65 12/09/24 11:31 Pulse Ox 98 12/09/24 11:01 Laboratory Results - last 24 hr 12/09/24 05:45 WBC 22.88 H RBC 4.50 Hgb 12.8 L Hct 40.9 MCV 91 MCH 28.4 MCHC 31.3 L RDW 15.9 H Plt Count 465 H MPV 9.1 Immature Gran % 0.7 Neutrophils % 96.1 Lymphocytes % 1.6 Monocytes % 1.3 Eosinophils % 0.1 Basophils % 0.2 Nucleated RBC % 0.0 Absolute Neutrophils 21.99 H Absolute Lymphocytes 0.37 L Absolute Monocytes 0.30 Absolute Eosinophils 0.02 Absolute Basophils 0.05 RBC Morphology Normal Sodium 140 Potassium 4.5 D Chloride 105 Carbon Dioxide 29.5 Anion Gap 5.5 BUN 5 L Creatinine 0.8 Est GFR (CKD-EPI 2020) 99.44 Glucose 132 H Calcium 10.3 H Total Bilirubin 0.38 AST 26 ALT 12 L Alkaline Phosphatase 103 Total Protein 6.1 L Albumin 2.0 L Random Vancomycin 17.6 Time Spent with Patient Time Spent with Patient: 25-34 minutes Time was spent: preparing to see the patient(eg.review tests), obtaining and/or reviewing separately otained hiistory, ordering medications,tests, procedures, referring, communicating with other health customer care professional, indepentently interpreting results, counseling the patient and care coordination
[2024-12-09] MEDS: Norepinephrine in D5W 8 MG/250 ML BAG 16.875 MG IV (13:03)
--- NOTE | 2024-12-09 13:16 | PGE_ITS ---
Date of Service Date of service: 12/09/24 Time of Service: 13:16 Assessment and Plan Assessment and plan (1) Smoker: Status: Acute Assessment and plan: recommend complete cessation. 1.31.25 Nicoderm patch at 21mcg daily (2) Acute DVT (deep venous thrombosis): Status: Acute Assessment and plan: pt on eliquis 5mg po bid (3) Palliative care encounter: Status: Acute Assessment and plan: Notes reviewed from Dr Loyola, appreciate consult (4) Advanced care planning/counseling discussion: Status: Acute Assessment and plan: PT remains a full code (5) History of alcohol abuse: Status: Acute Assessment and plan: noted (6) Abnormal weight loss: Status: Acute Assessment and plan: Most likely 2/2 underlying disease. 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 Pt does want to continue therapy in hopes of remission (8) Osteomyelitis, pelvis: Status: Acute Assessment and plan: admission ct of chest/abd/pelvis MPRESSION: 1. No evidence of thoracic metastatic disease. 2. No acute pulmonary process. 3. There has been marked progression of the destructive changes seen in the) EM and buttocks since the prior examination. There is now extension to the right ischium with destructive changes of the bones suggesting osteomyelitis. Me tastatic focus cannot be excluded. 4. There are also multiple small ring-enhancing lesions in the soft tissues in the right thigh suspicious for metastatic disease or abscesses. 5. There are now destructive changes involving the right acetabulum with an associated ring-enhancing fluid collection. Infection versus metastatic disease. 6. Distended gallbladder without evidence of cholelithiasis. 7. Mild hepatomegaly. No evidence of a hepatic metastasis. Upper limits of normal in size spleen. 8. Findings were discussed with Dr. Cano at 12 05 p.m. on 12/05/2024 12/07/24 PT remains on vanc and zosyn. Await culture results. My concerns include the possibility that pt has failed outpatient rx with levaquin and flagyl which will lead to a very difficult decision in regards to po abx at home. My plan is to discuss this with ID at [facility] in the AM (9) Septic shock: Status: Acute Assessment and plan: continue with vanc and zosyn as well as pressure support with levophed as needed. CW IVF as well 1..28 Pt did have an increase in his WBC and still needs pressure support. Pt does appear to have failed outpatient therapy with levaquin and flagyl. Pt does have an elevated esr as well. Cultures are pending. PT did have a resolution of his elevated lactate. CRP is elevated. Pt is on vancomycin and zosyn. Will recheck labs in am, I do expect a significant improvement 1.30.25 Pr remains on pressure support with levophed but he is generally needing less and less 1.31.25 Continuing to down titrate levophed as possible 2.1.25 Pt does appear to be improving from an infection and septic perspective. 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 Pt does appear to be responding to abx and iv fluid resuscitation so will not continue with steroids at this point Subjective Subjective Interval history since last seen: Pt seen and examined. No new complaints but still need pressure support Exam Narrative Exam Narrative: Head eyes ears nose and throat: Normocephalic atraumatic mucous membranes are moist extraocular motions are intact Neck: No lymphadenopathy no JVD no thyromegaly Cardiovascular: Regular rate and rhythm no murmur rubs or gallop Lungs: Clear to auscultation bilaterally with good air exchange Abdomen: Scaphoid with very little abdominal fat, colostomy appliance in place Extremities: No cyanosis clubbing or edema bilaterally he is actually has decreased muscle mass throughout Buttocks: Patient refused to take his dressing down for evaluation Neurologic: Cranial nerves II through XII intact as tested Psych: He is alert and oriented x 3 no apparent distress General: 64-year-old gentleman appears older than his stated age with significant muscle mass loss throughout. Objective Last Vital Signs Temp 37.5 C 12/09/24 12:26 Pulse 72 12/09/24 11:31 Resp 13 12/09/24 11:31 BP 137/65 12/09/24 11:31 Pulse Ox 98 12/09/24 11:01 Laboratory Results - last 24 hr 12/09/24 05:45 WBC 22.88 H RBC 4.50 Hgb 12.8 L Hct 40.9 MCV 91 MCH 28.4 MCHC 31.3 L RDW 15.9 H Plt Count 465 H MPV 9.1 Immature Gran % 0.7 Neutrophils % 96.1 Lymphocytes % 1.6 Monocytes % 1.3 Eosinophils % 0.1 Basophils % 0.2 Nucleated RBC % 0.0 Absolute Neutrophils 21.99 H Absolute Lymphocytes 0.37 L Absolute Monocytes 0.30 Absolute Eosinophils 0.02 Absolute Basophils 0.05 RBC Morphology Normal Sodium 140 Potassium 4.5 D Chloride 105 Carbon Dioxide 29.5 Anion Gap 5.5 BUN 5 L Creatinine 0.8 Est GFR (CKD-EPI 2020) 99.44 Glucose 132 H Calcium 10.3 H Total Bilirubin 0.38 AST 26 ALT 12 L Alkaline Phosphatase 103 Total Protein 6.1 L Albumin 2.0 L Random Vancomycin 17.6 Time Spent with Patient Time Spent with Patient: 25-34 minutes Time was spent: preparing to see the patient(eg.review tests), ordering medications,tests, procedures, referring, communicating with other health health care / medical job titles, indepentently interpreting results, counseling the patient and care coordination
[2024-12-09] MEDS: Lidocaine 2% Jelly 11 ML SYR UD (15:00)
[2024-12-09] MEDS: Nicotine 21 MG/24 HR PATCH TD (20:18)
[2024-12-09] MEDS: Norepinephrine in D5W 8 MG/250 ML BAG 20.625 MG IV (22:32)
[2024-12-10] VITALS (120 sets, daily range): BP systolic 77–129; BP diastolic 40–70; PULSE 46–93; RESP 10–19; TEMP 36.8–37.4; O2SAT 85–96
[2024-12-10] MEDS: Calcium Carbonate *TUMS* 500 MG CHEW 1000 MG PO ×3 (00:07→18:54)
[2024-12-10] MEDS: Normal Saline Flush 10 ML SYR IVP ×8 (00:07→22:29)
[2024-12-10] MEDS: MORPHine IR 15 MG TAB 30 MG PO ×7 (01:14→23:06)
[2024-12-10] MEDS: PIPERACILLIN/TAZO 3.375 GM in Normal Saline 50 ML IVPB ×3 (01:14→17:11)
[2024-12-10] MEDS: Hydrocortisone SOD SUC. 100 MG VIAL 50 MG IVP ×3 (04:17→19:34)
[2024-12-10] MEDS: Levothyroxine 100 MCG TAB PO (05:42)
[2024-12-10 06:10] LABS: Lactate 2.1 mmol/L (<or=2.0)
[2024-12-10 06:11] LABS: Abs Immature Grans 0.12 10^3/uL (0.0-0.06); HGB 10.8 g/dL (13.5-17.5); MCH 28.5 pg (27.0-33.0); MCHC 32.7 % (32.0-36.0); MCV 87 fL (80-95); MPV 8.5 fL (8.0-11.0); Platelet Count 461 10^3/uL (130-400); RBC 3.79 10^6/uL (4.36-5.78); RDW 15.7 % (11.8-14.1); RDW-SD 50.1 fL; WBC 21.58 10^3/uL (4.4-10.8)
[2024-12-10 06:22] LABS: ESR 23 mm/hr (0-20)
[2024-12-10 06:35] LABS: ALT 16 U/L (16-63); AST 29 U/L (15-37); Albumin 1.8 g/dL (3.4-5.0); Alkaline Phosphatase 98 U/L (46-116); Anion Gap 2.7 mmol/L (3-11); BUN 7 mg/dL (7-18); Bilirubin, Total 0.21 mg/dL (0.2-1.0); C-Reactive Protein 2.93 mg/dL (<or=0.5); CO2 30.3 mmol/L (21.0-32.0); CREATININE 0.7 mg/dL (0.70-1.30); Calcium 9.8 mg/dL (8.5-10.1); Chloride 106 mmol/L (98-107); Estimated GFR 103.53 (mL/min/1.73m2); Glucose 119 mg/dL (74-106); Potassium 3.9 mmol/L (3.5-5.1); Sodium 139 mmol/L (136-145); Total Protein 5.3 g/dL (6.4-8.2)
[2024-12-10 06:38] LABS: Absolute Eosinophil Count 0.22 10^3/uL (0.0-0.7); Absolute Lymphocyte Count 0.65 10^3/uL (1.2-3.4); Absolute Monocyte Count 0.43 10^3/uL (0.1-0.8); Absolute Neutrophil Count 20.29 10^3/uL (1.2-6.7); Atypical Lymphocytes % 0 %; Bands % 0 %
[2024-12-10 06:39] LABS: Diff Comment Manual Differential
[2024-12-10 06:59] LABS: Procalcitonin 0.11 ng/mL
[2024-12-10] MEDS: Acetaminophen 500 MG TAB 1000 MG PO ×3 (08:20→19:35)
[2024-12-10] MEDS: Apixaban 5 MG TAB PO ×2 (08:21→19:36)
[2024-12-10] MEDS: Potassium Chloride 20 MEQ TABCR 40 MEQ PO ×2 (08:21→19:35)
[2024-12-10] MEDS: Magnesium Oxide 400 MG TAB PO ×2 (08:21→19:36)
[2024-12-10] MEDS: MORPHine 4 MG/ML SYR IVP (08:59)
[2024-12-10] MEDS: Nicotine 21 MG/24 HR PATCH TD (09:00)
[2024-12-10] MEDS: VANCOMYCIN/WATER (PEG) 1 GM/200 ML BAG IVPB ×2 (09:01→22:27)
--- NOTE | 2024-12-10 11:24 | W.PM.PROGNOT ---
Date of Service Date of service: 12/10/24 Time of Service: 11:24 Assessment and Plan Assessment and plan (1) Smoker: Status: Acute Assessment and plan: recommend complete cessation. 1.31.25 Nicoderm patch at 21mcg daily (2) Acute DVT (deep venous thrombosis): Status: Acute Assessment and plan: pt on eliquis 5mg po bid (3) Palliative care encounter: Status: Acute Assessment and plan: Notes reviewed from Dr Loyola, appreciate consult (4) Advanced care planning/counseling discussion: Status: Acute Assessment and plan: PT remains a full code (5) History of alcohol abuse: Status: Acute Assessment and plan: noted (6) Abnormal weight loss: Status: Acute Assessment and plan: Most likely 2/2 underlying disease. 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 Pt does want to continue therapy in hopes of remission (8) Osteomyelitis, pelvis: Status: Acute Assessment and plan: admission ct of chest/abd/pelvis MPRESSION: 1. No evidence of thoracic metastatic disease. 2. No acute pulmonary process. 3. There has been marked progression of the destructive changes seen in the) EM and buttocks since the prior examination. There is now extension to the right ischium with destructive changes of the bones suggesting osteomyelitis. Metastatic focus cannot be excluded. 4. There are also multiple small ring-enhancing lesions in the soft tissues in the right thigh suspicious for metastatic disease or abscesses. 5. There are now destructive changes involving the right acetabulum with an associated ring-enhancing fluid collection. Infection versus metastatic disease. 6. Distended gallbladder without evidence of cholelithiasis. 7. Mild hepatomegaly. No evidence of a hepatic metastasis. Upper limits of normal in size spleen. 8. Findings were discussed with Dr. Cano at 12 05 p.m. on 12/05/2024 12/07/24 PT remains on vanc and zosyn. Await culture results. My concerns include the possibility that pt has failed outpatient rx with levaquin and flagyl which will lead to a very difficult decision in regards to po abx at home. My plan is to discuss this with ID at [facility] prior to dc (no call yet) (9) Septic shock: Status: Acute Assessment and plan: continue with vanc and zosyn as well as pressure support with levophed as needed. CW IVF as well 1.. Pt did have an increase in his WBC and still needs pressure support. Pt does appear to have failed outpatient therapy with levaquin and flagyl. Pt does have an elevated esr as well. Cultures are pending. PT did have a resolution of his elevated lactate. CRP is elevated. Pt is on vancomycin and zosyn. Will recheck labs in am, I do expect a significant improvement 1.30.25 Pr remains on pressure support with levophed but he is generally needing less and less 1.31.25 Continuing to down titrate levophed as possible 2..25 Pt does appear to be improving from an infection and septic perspective. Recheck labs in am including lactic acid 12/10/24 BP cuff changed to his dependant lower extremity to see if we can get more accurate readings. Pt remains on levophed at 6mcg/hr. PT still has an elevated wbc and inflammatory markers. Pt is currently on vanc and zosyn. 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 Pt does appear to be responding to abx and iv fluid resuscitation so will not continue with steroids at this point. Pt is currently on hydrocortisone 50mg iv q8 Subjective Subjective Interval history since last seen: PT seen and examined in his room this AM. PT resting comfortably. POC d/w bedside nurse during ICU hudldle Exam Narrative Exam Narrative: Head eyes ears nose and throat: Normocephalic atraumatic mucous membranes are moist extraocular motions are intact Neck: No lymphadenopathy no JVD no thyromegaly Cardiovascular: Regular rate and rhythm no murmur rubs or gallop Lungs: Clear to auscultation bilaterally with good air exchange Abdomen: Scaphoid with very little abdominal fat, colostomy appliance in place. Visible bowel does appear to be swollen Extremities: No cyanosis clubbing or edema bilaterally he is actually has decreased muscle mass throughout Buttocks: Patient refused to take his dressing down for evaluation Neurologic: Cranial nerves II through XII intact as tested Psych: He is alert and oriented x 3 no apparent distress General: 64-year-old gentleman appears older than his stated age with significant muscle mass loss throughout. -bilateral swelling in the scrotum Objective Last Vital Signs Temp 37.1 C 12/10/24 09:31 Pulse 51 L 12/10/24 10:46 Resp 11 L 12/10/24 10:46 BP 109/55 L 12/10/24 10:46 Pulse Ox 94 12/10/24 10:46 Laboratory Results - last 24 hr 12/10/24 05:50 WBC 21.58 H RBC 3.79 L Hgb 10.8 L D Hct 33.0 L MCV 87 D MCH 28.5 MCHC 32.7 RDW 15.7 H Plt Count 461 H MPV 8.5 Immature Gran % 0.0 Neutrophils % 94.0 Band Neutrophils % 0 Lymphocytes % 3.0 Atypical Lymphs % 0 Monocytes % 2.0 Eosinophils % 1.0 Basophils % 0.0 Nucleated RBC % 0.0 Absolute Neutrophils 20.29 H Absolute Lymphocytes 0.65 L Absolute Monocytes 0.43 Absolute Eosinophils 0.22 Absolute Basophils 0.00 ESR 23 H VBG Lactate 2.1 H* Sodium 139 Potassium 3.9 Chloride 106 Carbon Dioxide 30.3 Anion Gap 2.7 L BUN 7 Creatinine 0.7 Est GFR (CKD-EPI 2020) 103.53 Glucose 119 H Calcium 9.8 Total Bilirubin 0.21 AST 29 ALT 16 Alkaline Phosphatase 98 C-Reactive Protein 2.93 H Total Protein 5.3 L Albumin 1.8 L Procalcitonin 0.11 Time Spent with Patient Time Spent with Patient: 25-34 minutes Time was spent: preparing to see the patient(eg.review tests), ordering medications,tests, procedures, referring, communicating with other health rn complex care, indepentently interpreting results, counseling the patient and care coordination
[2024-12-10] MEDS: fentaNYL 50 MCG PATCH TD (12:04)
[2024-12-10] MEDS: fentaNYL 100 MCG PATCH TD (12:04)
[2024-12-10] MEDS: Lidocaine 2% Jelly 11 ML SYR UD (16:19)
[2024-12-10] MEDS: Norepinephrine in D5W 8 MG/250 ML BAG 3.75 MG IV (17:21)
--- NOTE | 2024-12-10 17:45 | NUR.NOTE ---
Nursing Note: Pt requests tele leads, BP cuff, and spo2 monitor to be off during dressing change.
[2024-12-11] VITALS (124 sets, daily range): BP systolic 85–122; BP diastolic 38–76; PULSE 48–87; RESP 9–21; TEMP 37–37.2; O2SAT 89–97
--- NOTE | 2024-12-11 | DI.US_ITS ---
Exam(s) US SCROTUM EXAM: US SCROTUM CLINICAL HISTORY: scrotal swelling. TECHNIQUE: Scrotal ultrasound performed using grayscale, color-flow and spectral Doppler analysis. COMPARISON: CT CT CHEST/ABD/PEL W from 12/05/2024 FINDINGS: RIGHT TESTICLE: 2.8 x 2.2 x 2.2 cm Echogenicity: Normal. Contour: Smooth. Mass: None seen. Microlithiasis: None. Hydrocele: Hydrocele measuring 2.8 x 2.8 x 2.2 cm. Varicocele: None. Hernia: No peristalsing bowel loop identified. Epididymis: Normal. Scrotum: Significant scrotal wall thickening and edema. 12 millimeter thickness. No focal abscess or fluid collection. LEFT TESTICLE: 2.7 x 1.8 x 1.9 cm Echogenicity: Normal. Contour: Smooth. Mass: None seen. Microlithiasis: None. Hydrocele: None. Varicocele: None. Hernia: No peristalsing bowel loop identified. Epididymis: Normal size. Incidental small calcification in head. Scrotum: Diffuse swelling and edema. 9 millimeter thickness. No focal abscess or fluid collection. DOPPLER: Color: Symmetric and uniform, no hyperemia. Duplex: Bilateral testicular arterial waveforms visualized. IMPRESSION: Significant scrotal wall thickening. No evidence of abscess or drainable fluid collection. Small right hydrocele. Testicles are somewhat atrophic but otherwise unremarkable. DATA REPOSITORY:
[2024-12-11] MEDS: PIPERACILLIN/TAZO 3.375 GM in Normal Saline 50 ML IVPB ×3 (02:12→17:43)
[2024-12-11] MEDS: MORPHine IR 15 MG TAB 30 MG PO ×7 (02:21→22:04)
[2024-12-11] MEDS: Hydrocortisone SOD SUC. 100 MG VIAL 50 MG IVP ×3 (03:49→20:29)
[2024-12-11] MEDS: Levothyroxine 100 MCG TAB PO (05:24)
[2024-12-11 07:03] LABS: Abs Immature Grans 0.17 10^3/uL (0.0-0.06); Absolute Basophil Count 0.02 10^3/uL (0.0-0.2); Absolute Monocyte Count 0.73 10^3/uL (0.1-0.8); Absolute Neutrophil Count 18.25 10^3/uL (1.2-6.7); Basophils % 0.1 %; HCT 33.5 % (40.0-50.0); HGB 10.7 g/dL (13.5-17.5); Immature Grans % 0.9 %; Lymphocytes % 2.5 %; MCH 28.7 pg (27.0-33.0); MCHC 31.9 % (32.0-36.0); MCV 90 fL (80-95); MPV 9.1 fL (8.0-11.0); Monocytes % 3.7 %; Neutrophils % 92.8 %; Platelet Count 426 10^3/uL (130-400); RBC 3.73 10^6/uL (4.36-5.78); RDW 16.2 % (11.8-14.1); RDW-SD 53.3 fL; WBC 19.67 10^3/uL (4.4-10.8)
[2024-12-11 07:09] LABS: Absolute Lymphocyte Count 0.49 10^3/uL (1.2-3.4)
[2024-12-11 07:30] LABS: ALT 17 U/L (16-63); AST 29 U/L (15-37); Albumin 1.9 g/dL (3.4-5.0); Alkaline Phosphatase 99 U/L (46-116); BUN 9 mg/dL (7-18); Bilirubin, Total 0.24 mg/dL (0.2-1.0); CREATININE 0.8 mg/dL (0.70-1.30); Chloride 105 mmol/L (98-107); Estimated GFR 99.44 (mL/min/1.73m2); Glucose 117 mg/dL (74-106); Potassium 3.9 mmol/L (3.5-5.1); Sodium 140 mmol/L (136-145); Total Protein 5.3 g/dL (6.4-8.2)
--- NOTE | 2024-12-11 08:29 | PDOC.CMPRO ---
Date of service: 12/11/24 Time of Service: 08:29 Care Management Progress Note Progress Note Text Progress Note Text: Anant was laying in bed when CM met with him. He was on his right side which is the only position that is comfortable for him. Anant was upset and a little weepy when talking with CM. He stated that was told by the provider this morning that if his vasopressors are discontinued, he will within a couple of days. He expressed frustration that none of the previous providers told him this before. Anant also is having challenges with pain control. CM informed him that his pain medication regimen was clarified this morning and he can clearly receive 8mg of Morphine IVP q 1hour. He also still has the PO morphine order despite the options, nothing really controls his pain completely. Dr. Loyola his as well as his Fentanyl patches. The morphine 4 mg q 4h was discontinued. Anant stated that Dr. Loyola is his Palliative Care MD and that she is one of the few providers he trusts and has confidence in. Anant repeated his dismay at learning that he is vasopressor dependent at this time and kept mentioning the fact that he is dying. Each time he brought this up, he became teary and also angry. CM will reach out to Dr. Loyola to see if she is able to meet with him again this week. Discharge Potential Discharge Needs: PCP F/U Appt Anticipated Barriers to Discharge: Medical Status Patient/Family Education Needs: Review discharge instructions, discuss Ask Me Three Transportation: Private vehicle Plan: Anticipate Anant will be discharged home with a resumption of home health services for wound cane, when medically cleared. He will follow up with his PCP, Palliative Care and plan of care and transport with family. CM will follow and continue to support discharge planning needs. Social Determinants of Health Screening Will the Patient Participate in the Screening?: Declined to provide Do you worry about having a steady place to live?: no
[2024-12-11] MEDS: Apixaban 5 MG TAB PO ×2 (08:45→20:31)
[2024-12-11] MEDS: Acetaminophen 500 MG TAB 1000 MG PO ×3 (08:57→20:31)
[2024-12-11] MEDS: Magnesium Oxide 400 MG TAB PO ×2 (08:58→20:31)
[2024-12-11] MEDS: Potassium Chloride 20 MEQ TABCR 40 MEQ PO ×2 (09:00→20:30)
[2024-12-11] MEDS: Nicotine 21 MG/24 HR PATCH TD (09:00)
[2024-12-11] MEDS: Normal Saline Flush 10 ML SYR IVP ×2 (09:08→20:30)
[2024-12-11] MEDS: Lidocaine 2% Jelly 11 ML SYR UD (11:20)
[2024-12-11] MEDS: VANCOMYCIN/WATER (PEG) 1 GM/200 ML BAG IVPB ×2 (12:13→21:53)
--- NOTE | 2024-12-11 13:11 | W.PM.PROGNOT ---
Date of Service Date of service: 12/11/24 Time of Service: 13:11 Assessment and Plan Assessment and plan (1) Septic shock: Status: Acute Assessment and plan: -secondary to pelvic osteo as noted below -has been on zanc and zosyn, will continue -failed outpatient therapy of levaquin and flagyl, will need to discuss with [facility] [place] [facility] about [place] regimen once off of levophed and preparing for discharge -overall requirement of levophed has decreased, though still requiring 3mcg despite addition of hydrocortisone; continue to weak levophed as tolerated with goal MAP >65 (2) Osteomyelitis, pelvis: Status: Acute Assessment and plan: -admission ct of chest/abd/pelvis MPRESSION: 1. No evidence of thoracic metastatic disease. 2. No acute pulmonary process. 3. There has been marked progression of the destructive changes seen in the) EM and buttocks since the prior examination. There is now extension to the right ischium with destructive changes of the bones suggesting osteomyelitis. Metastatic focus cannot be excluded. 4. There are also multiple small ring-enhancing lesions in the soft tissues in the right thigh suspicious for metastatic disease or abscesses. 5. There are now destructive changes involving the right acetabulum with an associated ring-enhancing fluid collection. Infection versus metastatic disease. 6. Distended gallbladder without evidence of cholelithiasis. 7. Mild hepatomegaly. No evidence of a hepatic metastasis. Upper limits of normal in size spleen. 8. Findings were discussed with Dr. Cano at 12 05 p.m. on 12/05/2024 12/07/24 PT remains on vanc and zosyn. 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 -Pt does want to continue therapy in hopes of remission (see Palliative Care notes for further details) (4) Cancer cachexia: Status: Acute Assessment and plan: -Plan was to increase steroids for both appetite stimulation as well as hoping to improve bp. -will continue steroids while weaning levophed as noted above (5) Abnormal weight loss: Status: Acute Assessment and plan: -Most likely 2/2 underlying disease. (6) Acute DVT (deep venous thrombosis): Status: Acute Assessment and plan: -pt on eliquis 5mg po bid (7) Palliative care encounter: Status: Acute Assessment and plan: -Notes reviewed from Dr Loyola, appreciate consult (8) Smoker: Status: Acute Assessment and plan: -recommend complete cessation. -12.08.24, [place] [place] (9) History of alcohol abuse: Status: Acute Assessment and plan: noted (10) Advanced care planning/counseling discussion: Status: Acute Assessment and plan: PT remains a full code Subjective Subjective Interval history since last seen: I do long discussion this morning with the patient regarding his acute illness. While he understood the severity of the spread of his metastatic disease in his pelvis into his bone, he appears to be unaware of the severity of his infection and the requirement of Levophed in order to maintain his blood pressure. He states that he has been adamant about going home each day, and that no one is explained to him that if he were to leave in his current state while requiring Levophed that he would likely . He stated appreciation for being told about his current severity of illness, and states that he will stay in the hospital until he is able to be safely discharged. Exam Narrative Exam Narrative: Chronically ill severely cachectic appearing gentleman laying in bed, older than stated age, ANO x 4, heart regular rhythm, lungs clear to auscultation bilaterally, abdomen soft, nontender, nondistended, please review nurses notes for assessment of sacral wounds as they were recently redressed and dressing was not taken down by me Objective Last Vital Signs Temp 98.6 F 12/11/24 01:00 Pulse 62 12/11/24 09:01 Resp 15 12/11/24 09:01 BP 119/56 L 12/11/24 09:01 Pulse Ox 90 L 12/11/24 09:01 Laboratory Results - last 24 hr 12/08/24 12/11/24 08:30 05:28 WBC 19.67 H RBC 3.73 L Hgb 10.7 L Hct 33.5 L MCV 90 MCH 28.7 MCHC 31.9 L RDW 16.2 H Plt Count 426 H MPV 9.1 Immature Gran % 0.9 Neutrophils % 92.8 Lymphocytes % 2.5 Monocytes % 3.7 Eosinophils % 0.0 Basophils % 0.1 Nucleated RBC % 0.0 Absolute Neutrophils 18.25 H Absolute Lymphocytes 0.49 L Absolute Monocytes 0.73 Absolute Eosinophils 0.00 Absolute Basophils 0.02 Sodium 140 Potassium 3.9 Chloride 105 Carbon Dioxide 30.0 Anion Gap 5.0 BUN 9 Creatinine 0.8 Est GFR (CKD-EPI 2020) 99.44 Glucose 117 H Calcium 10.0 Total Bilirubin 0.24 AST 29 ALT 17 Alkaline Phosphatase 99 Total Protein 5.3 L Albumin 1.9 L Cortisol >120.0 Time Spent with Patient Time Spent with Patient: >50 minutes Time was spent: preparing to see the patient(eg.review tests), obtaining and/or reviewing separately otained hiistory, ordering medications,tests, procedures, referring, communicating with other health care management specialist, indepentently interpreting results, counseling the patient and care coordination
[2024-12-11] MEDS: Calcium Carbonate *TUMS* 500 MG CHEW 1000 MG PO (22:04)
[2024-12-12] VITALS (83 sets, daily range): BP systolic 87–121; BP diastolic 44–69; PULSE 50–122; RESP 9–28; TEMP 36.9–37.7; O2SAT 87–97
[2024-12-12] MEDS: PIPERACILLIN/TAZO 3.375 GM in Normal Saline 50 ML IVPB ×3 (01:09→18:09)
[2024-12-12] MEDS: MORPHine IR 15 MG TAB 30 MG PO ×4 (01:10→14:31)
[2024-12-12] MEDS: Hydrocortisone SOD SUC. 100 MG VIAL 50 MG IVP (03:55)
[2024-12-12] MEDS: Normal Saline Flush 10 ML SYR IVP ×5 (03:56→20:42)
[2024-12-12] MEDS: Levothyroxine 100 MCG TAB PO (05:24)
[2024-12-12 06:00] LABS: HGB 9.9 g/dL (13.5-17.5); MCH 28.7 pg (27.0-33.0); MCHC 31.9 % (32.0-36.0); MCV 90 fL (80-95); MPV 8.8 fL (8.0-11.0); Platelet Count 303 10^3/uL (130-400); RBC 3.45 10^6/uL (4.36-5.78); RDW 15.9 % (11.8-14.1); RDW-SD 52.7 fL; WBC 14.53 10^3/uL (4.4-10.8)
[2024-12-12 06:21] LABS: ALT 16 U/L (16-63); BUN 11 mg/dL (7-18); CREATININE 0.7 mg/dL (0.70-1.30); Calcium 9.5 mg/dL (8.5-10.1); Chloride 105 mmol/L (98-107); Estimated GFR 103.53 (mL/min/1.73m2); Potassium 3.7 mmol/L (3.5-5.1)
[2024-12-12 06:49] LABS: AST 29 U/L (15-37); Albumin 1.8 g/dL (3.4-5.0); Alkaline Phosphatase 92 U/L (46-116); Anion Gap 1.3 mmol/L (3-11); Bilirubin, Total 0.27 mg/dL (0.2-1.0); CO2 32.7 mmol/L (21.0-32.0); Glucose 102 mg/dL (74-106); Sodium 139 mmol/L (136-145)
--- NOTE | 2024-12-12 08:45 | PDOC.CMPRO ---
Date of service: 12/12/24 Time of Service: 08:45 Care Management Progress Note Progress Note Text Progress Note Text: Ronaldo was able to wean off pressors and started on PO Midodrine. Dr. Loyola from Palliative met with Ronaldo this morning to review goals of care and address pain control, recommendations offered. Anticipate pt will discharge home with resumption of [facility] RN, once LT ABX regimen is known. CM will follow. Discharge Potential Discharge Needs: PT Evaluation and PCP F/U Appt Anticipated Barriers to Discharge: Medical Status Patient/Family Education Needs: Review discharge instructions, discuss Ask Me Three Transportation: Private vehicle Plan: Anticipate Anant will be discharged home with a resumption of [facility] RN for wound care, when medically cleared and ABX regimen is identified. He will follow up with his PCP, Palliative Care and plan of care and transport with family. CM will follow and continue to support discharge planning needs. Social Determinants of Health Screening Will the Patient Participate in the Screening?: Declined to provide Do you worry about having a steady place to live?: no
--- NOTE | 2024-12-12 09:02 | PCPN_ITS ---
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 Palliative care team has been involved to help with goals of care discussions as well as pain management. My first visit with patient today in about 4 days Update: This morning he was finally able to be weaned off of pressors and his been started on oral midodrine. Patient reports that he is feeling okay . He is eating a little bit. He slept okay last night. He feels that his pain has never been in control, Although he thinks that the combination of oral.and IV morphine is working pretty well. Tells me that [id number] and healthcare agent Leticia was in to visit him several days ago but not since. Nursing tells me that 1 friend visited in addition to family. #Goals of care: Patient first tells me that he is appreciative that Dr. Miller was straight with me, told me I was going to and that I am dying . Yet he is then very clear that he does not regret having to spend the last week lying in bed being treated. He is willing to continue to be in the hospital as needed. If he goes home he is willing to come back and repeat this admission if it keeps him alive. I have got to do this . He reiterates that he only wants aggressive care withdrawn if he is in a coma, with or without a breathing machine and it does not look like he is going to wake up. At this point he wou ld want his healthcare agent to withdraw support. I again presented several alternative scenarios. Discussed comfort measures only in the hospital with aggressive control of pain and other symptoms. Or possibility of hospice at home. He does not think these are right for him and would continue to come back to the hospital for treatment until he dies because I have to . He does not explain to me why he has to. Assessment: Patient seems to realize for the first time that he is entering final stage of his illness. However at this time he is not finding hospitalization and treatment onerous. I do think it is important at this point to begin to make sure that his healthcare agent is aware of what is going on. Plan: -Patient remains full code. -He is begrudgingly willing to meet with me and healthcare agent [id number] Leticia for a family meeting just to keep Leticia updated. I will ask case management to be present of possible. Hospitalist and nursing staff welcome as well. #Pain: Currently patient getting fentanyl patch 150 mcg changed every 48 hours (360 mg OME). Over the last 24 hours he has received 4 doses of morphine 8 mg IV and 9 doses of oral morphine 30 mg p.o. Morphine dose totals 306 oral mg morphine equivalent. TOtal 666 OME, although given how low his body fat is, may not be getting full fentanyl amount. My reccomendation is that patient be started on classic PHOTOSTAT OPERATOR morphine pump. However, pt is still reluctant. I think it is worth him tryikng this out for even as short as 24-48 hours. If he agrees to Morphine PHOTOSTAT OPERATOR, suggest with starting dose of morphine of 5mg/hour plus bolus of 5 mg IV PATIENT CONTROLLED. Pharmacy thinks they may be able to set him up with this. Another alternate is to switch to oral long acting morphine. But I think best is to use a pump first, get a handle on 24 hour morphine need and THEN switch to long acting. Patient requested that Dr. Miller and myself meet tgather with him at bedside to discuss pain management. Dr. Miller not available right now. We will try to arrange bedside meeting this afternoon. 16:15: Addendum: #Pain: Bedside meeting with myself , Dr. Miller and patient. Discussed pros and cons of Morphine PHOTOSTAT OPERATOR. Pt kept BP/MAP in reasonable range during the day off IV pressors and on oral midodrine. Pt agrees to trial of morphine pump. Consult with pharmacist: he cannot have PHOTOSTAT OPERATOR or CADD at needed rate of Morphine at 5 mg/hour. Maximum with currentpumps available is 2 mg/hour. Equivalent dose he would need of hydromorphone is also too high for our pumps. Plan: Pt agrees to increasing Morphine oral to 45 mg a dose and increase IV morphine dose to [address] Miller aware.. Objective Last Vital Signs Temp 37.7 C H 12/12/24 07:15 Pulse 58 L 12/12/24 07:15 Resp 12 12/12/24 07:15 BP 106/58 L 12/12/24 07:15 Pulse Ox 94 12/12/24 07:15 Laboratory Results - last 24 hr 12/12/24 05:20 WBC 14.53 H RBC 3.45 L Hgb 9.9 L Hct 31.0 L MCV 90 MCH 28.7 MCHC 31.9 L RDW 15.9 H Plt Count 303 MPV 8.8 Sodium 139 Potassium 3.7 Chloride 105 Carbon Dioxide 32.7 H Anion Gap 1.3 L BUN 11 Creatinine 0.7 Est GFR (CKD-EPI 2020) 103.53 Glucose 102 Calcium 9.5 Total Bilirubin 0.27 AST 29 ALT 16 Alkaline Phosphatase 92 Total Protein 5.0 L Albumin 1.8 L
[2024-12-12] MEDS: Acetaminophen 500 MG TAB 1000 MG PO ×3 (09:13→20:26)
[2024-12-12] MEDS: Midodrine 2.5 MG TAB PO ×3 (09:15→20:26)
[2024-12-12] MEDS: Apixaban 5 MG TAB PO ×2 (09:15→20:25)
[2024-12-12] MEDS: Potassium Chloride 20 MEQ TABCR 40 MEQ PO ×2 (09:15→20:25)
[2024-12-12] MEDS: Magnesium Oxide 400 MG TAB PO ×2 (09:15→20:26)
[2024-12-12] MEDS: Nicotine 21 MG/24 HR PATCH TD (09:16)
[2024-12-12] MEDS: VANCOMYCIN/WATER (PEG) 1 GM/200 ML BAG IVPB ×2 (09:17→21:52)
--- NOTE | 2024-12-12 09:28 | W.NUTRFU ---
Date of service: 12/12/24 Time of Service: 09:28 Nutrition Note NOTE: follow up with patient - not drinking the boost ONS offered. Also not positive comments about the hospital food for the most part. Pt oral intake at meals reported at 50-100% for the most part but sometimes but be just 100% of a coke or just a few items. Deshawn weight has trended up during admission - most likely combo of regular meals and slight non-pitting edema per nurse note. total protein and albumin labs still low today. Mag slightly low at 1.6 - ordered for MagOx BID. Encouraqged patient to explore menu choices and some alternative drinks - does not like CIB drinks/frappes that have been offered as well. Will continue to work with patient with ordering food preferences and encourage higher protein, kcal intake. Time Spent in Nutritional Counseling and Treatment: 5 min
[2024-12-12] MEDS: Lidocaine 2% Jelly 11 ML SYR UD (11:48)
[2024-12-12] MEDS: fentaNYL 100 MCG PATCH TD (12:50)
[2024-12-12] MEDS: fentaNYL 50 MCG PATCH TD (12:50)
[2024-12-12] MEDS: Calcium Carbonate *TUMS* 500 MG CHEW 1000 MG PO ×2 (15:30→20:36)
--- NOTE | 2024-12-12 17:53 | CHAPLAIN ---
The last time I visited Ronaldo, last week, he was focused on finding his backpack with his belongings and medication in it, which he thought he'd brought to the ED. He didn't seem interested in other conversation. (It turned out his backpack was at home.) Today he was in bed watching tv. He told me that he knows he is dying and is frustrated that he can't do anything about that. He has metastatic anal cancer and is often in pain. Dr. Loyola from [facility], who has been meeting with Ronaldo for more than a year, is working on pain control measures. Ronaldo identifies his sister in law as a support, and there's one friend. He said his friends know he is here, when I asked if there's anyone he wants to see or speak to. We talked about how difficult it must be to know he is dying, and Ronaldo said he thinks about it for a while and then I try to think about something else. He talked about when the man upstairs says it's your time, you have to go. Ronaldo said he left his cross at home and asked if I have one. I gave him a small wooden cross and prayer shawl and explained that there are people like me, and Maranda who knit the prayer shawl, who care about him. He was tearful while thanking me for the prayer shawl. Ronaldo said he's not interested in listening to music and prefers the TV. He couldn't think of anything he wants or feels like he needs to do at the moment, but is worried about if he can go home or not. He talked about how unfair it is that druggies can get their drugs so easily and he has to fight the insurance company, the pharmacy, and the nurses to get his pain medication. He was really happy with a meatball sub that his sister in law brought him from [facility]. I will continue to visit.
[2024-12-12] MEDS: MORPHine IR 15 MG TAB 45 MG PO ×2 (18:10→21:51)
--- NOTE | 2024-12-12 18:26 | PGE_ITS ---
Date of Service Date of service: 12/12/24 Time of Service: 18:26 Assessment and Plan Assessment and plan (1) Septic shock: Status: Acute Assessment and plan: -secondary to pelvic osteo as noted below -has been on zanc and zosyn, will continue -failed outpatient therapy of levaquin and flagyl, will need to discuss with [facility] about antibiotics regimen once off of levophed and preparing for discharge -Had required Levophed and corticosteroids for prolonged period of time, but has since been weaned off of Levophed as of 5:30 AM on 12/13/2024 -Has been started on midodrine 3 times daily, will continue (2) Osteomyelitis, pelvis: Status: Acute Assessment and plan: -admission ct of chest/abd/pelvis MPRESSION: 1. No evidence of thoracic metastatic disease. 2. No acute pulmonary process. 3. There has been marked progression of the destructive changes seen in the) EM and buttocks since the prior examination. There is now extension to the right ischium with destructive changes of the bones suggesting osteomyelitis. Metastatic focus cannot be excluded. 4. There are also multiple small ring-enhancing lesions in the soft tissues in the right thigh suspicious for metastatic disease or abscesses. 5. There are now destructive changes involving the right acetabulum with an associated ring-enhancing fluid collection. Infection versus metastatic disease. 6. Distended gallbladder without evidence of cholelithiasis. 7. Mild hepatomegaly. No evidence of a hepatic metastasis. Upper limits of normal in size spleen. 8. Findings were discussed with Dr. Cano at 12 05 p.m. on 12/05/2024 12/07/24 PT remains on vanc and zosyn. 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 -Pt does want to continue therapy in hopes of remission (see Palliative Care notes for further details) (4) Cancer cachexia: Status: Acute Assessment and plan: -Plan was to increase steroids for both appetite stimulation as well as hoping to improve bp. -Steroids have been discontinued with Levophed as noted above (5) Abnormal weight loss: Status: Acute Assessment and plan: -Most likely 2/2 underlying disease. (6) Acute DVT (deep venous thrombosis): Status: Acute Assessment and plan: -pt on eliquis 5mg po bid (7) Palliative care encounter: Status: Acute Assessment and plan: -Notes reviewed from Dr Loyola, appreciate consult and ongoing assistance with pain regimen (8) Smoker: Status: Acute Assessment and plan: -recommend complete cessation. -12.08.24, [place] [facility] [place] (9) History of alcohol abuse: Status: Acute Assessment and plan: noted (10) Advanced care planning/counseling discussion: Status: Acute Assessment and plan: PT remains a full code Subjective Subjective Interval history since last seen: Patient was seen in the presence of palliative care. He appreciates that we are working on more aggressive pain management. He also appears to be more understanding of his acute illness and short prognosis, though at this time he remains full code and is interested in continuing to be hospitalized and for treatment. Exam Narrative Exam Narrative: Chronically ill severely cachectic appearing gentleman laying in bed, older than stated age, ANO x 4, heart regular rhythm, lungs clear to auscultation bilaterally, abdomen soft, nontender, nondistended, please review nurses notes for assessment of sacral wounds as they were recently redressed and dressing was not taken down by me Objective Last Vital Signs Temp 99.7 F H 12/12/24 18:01 Pulse 75 12/12/24 18:01 Resp 13 12/12/24 18:01 BP 95/48 L 12/12/24 18:01 Pulse Ox 94 12/12/24 18:01 Laboratory Results - last 24 hr 12/12/24 05:20 WBC 14.53 H RBC 3.45 L Hgb 9.9 L Hct 31.0 L MCV 90 MCH 28.7 MCHC 31.9 L RDW 15.9 H Plt Count 303 MPV 8.8 Sodium 139 Potassium 3.7 Chloride 105 Carbon Dioxide 32.7 H Anion Gap 1.3 L BUN 11 Creatinine 0.7 Est GFR (CKD-EPI 2020) 103.53 Glucose 102 Calcium 9.5 Total Bilirubin 0.27 AST 29 ALT 16 Alkaline Phosphatase 92 Total Protein 5.0 L Albumin 1.8 L Time Spent with Patient Time Spent with Patient: >50 minutes Time was spent: preparing to see the patient(eg.review tests), obtaining and/or reviewing separately otained hiistory, ordering medications,tests, procedures, referring, communicating with other health skin care consultant, indepentently interpreting results, counseling the patient and care coordination
[2024-12-13] VITALS (37 sets, daily range): BP systolic 75–107; BP diastolic 44–54; PULSE 70–102; RESP 10–21; TEMP 36.8–37.5; O2SAT 89–94
[2024-12-13] MEDS: PIPERACILLIN/TAZO 3.375 GM in Normal Saline 50 ML IVPB ×3 (01:54→18:53)
[2024-12-13] MEDS: MORPHine IR 15 MG TAB 45 MG PO ×6 (01:55→22:34)
[2024-12-13] MEDS: Normal Saline Flush 10 ML SYR IVP ×5 (05:02→20:46)
[2024-12-13] MEDS: Levothyroxine 100 MCG TAB PO (06:25)
[2024-12-13] MEDS: Midodrine 2.5 MG TAB 5 MG PO ×2 (08:49→13:55)
[2024-12-13] MEDS: Potassium Chloride 20 MEQ TABCR 40 MEQ PO ×2 (08:49→20:59)
[2024-12-13] MEDS: Acetaminophen 500 MG TAB 1000 MG PO ×3 (08:49→20:59)
[2024-12-13] MEDS: Apixaban 5 MG TAB PO ×2 (08:50→20:59)
[2024-12-13] MEDS: Magnesium Oxide 400 MG TAB PO ×2 (08:50→20:59)
--- NOTE | 2024-12-13 08:55 | CMPROGNOTE_ITS ---
Date of service: 12/13/24 Time of Service: 09:00 Care Management Progress Note Progress Note Text Progress Note Text: Anant was laying in bed when CM met with him. He was not in a very good mood and stated that he did not know what is going on. He was watching his monitor which indicated that his SBP was in the 70s and 80s. The provider had indicated to him that if his vasopressors were stopped, he would within a short time but that was before his blood pressure stabilized. The Norepinephrine was discontinued early yesterday morning.Initially his SBP remained between 90 and 120, however today they have been in the 70s and 80s. Anant reported that the providers believe his hypotension may be caused by his pain medication. His pain medication doses have been increased. His oral Morphine (Msir) was increased from 30 mg to 45 mg Q 3h prn and he has had 6 doses since last evening. His IV Morphine has also been increased from 8 mg to 12 mg Q 1h prn. Anant has received 4 doses of the 12 mg IVP Morphine since 8:30 pm last night. Anant commented that he would rather be alive and uncomfortable than or dying in comfort. He requested to speak to Dr. Miller who readily agreed to meet with him. Discharge Potential Discharge Needs: PCP F/U Appt Anticipated Barriers to Discharge: Medical Status Patient/Family Education Needs: Review discharge instructions, discuss Ask Me Three Transportation: Private vehicle Plan: Anticipate Anant will be discharged home with a resumption of [facility] RN for wound care, when medically cleared. He will follow up with his PCP, Palliative Care and plan of care and transport with family. CM will follow and continue to support discharge planning needs. Social Determinants of Health Screening Will the Patient Participate in the Screening?: Declined to provide Do you worry about having a steady place to live?: no
[2024-12-13] MEDS: VANCOMYCIN/WATER (PEG) 1 GM/200 ML BAG IVPB ×2 (10:15→22:15)
[2024-12-13] MEDS: Nicotine 21 MG/24 HR PATCH TD (10:43)
[2024-12-13] MEDS: Calcium Carbonate *TUMS* 500 MG CHEW 1000 MG PO (10:47)
--- NOTE | 2024-12-13 16:56 | W.PM.PROGNOT ---
Date of Service Date of service: 12/13/24 Time of Service: 16:56 Assessment and Plan Assessment and plan (1) Septic shock: Status: Acute Assessment and plan: -secondary to pelvic osteo as noted below -has been on zanc and zosyn, will continue -failed outpatient therapy of levaquin and flagyl, will need to discuss with [facility] about antibiotics regimen once off of levophed and preparing for discharge -Had required Levophed and corticosteroids for prolonged period of time, but has since been weaned off of Levophed as of 5:30 AM on 12/13/2024 -Has been started on midodrine 3 times daily, now up to 10mg TID -systolics has been in the 80's with MAPs in the low 60, which is tolerable given his current condition and lack of symptoms -will consider decreasing pain regimen, starting IV fluids, or restarting presors only if patients MAP continues to decline and patient become symptomatic (2) Osteomyelitis, pelvis: Status: Acute Assessment and plan: -admission ct of chest/abd/pelvis MPRESSION: 1. No evidence of thoracic metastatic disease. 2. No acute pulmonary process. 3. There has been marked progression of the destructive changes seen in the) EM and buttocks since the prior examination. There is now extension to the right ischium with destructive changes of the bones suggesting osteomyelitis. Metastatic focus cannot be excluded. 4. There are also multiple small ring-enhancing lesions in the soft tissues in the right thigh suspicious for metastatic disease or abscesses. 5. There are now destructive changes involving the right acetabulum with an associated ring-enhancing fluid collection. Infection versus metastatic disease. 6. Distended gallbladder without evidence of cholelithiasis. 7. Mild hepatomegaly. No evidence of a hepatic metastasis. Upper limits of normal in size spleen. 8. Findings were discussed with Dr. Cano at 12 05 p.m. on 12/05/2024 12/07/24 PT remains on vanc and zosyn. 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 -Pt does want to continue therapy in hopes of remission (see Palliative Care notes for further details) (4) Cancer cachexia: Status: Acute Assessment and plan: -Plan was to increase steroids for both appetite stimulation as well as hoping to improve bp. -Steroids have been discontinued with Levophed as noted above (5) Abnormal weight loss: Status: Acute Assessment and plan: -Most likely 2/2 underlying disease. (6) Acute DVT (deep venous thrombosis): Status: Acute Assessment and plan: -pt on eliquis 5mg po bid (7) Palliative care encounter: Status: Acute Assessment and plan: -Notes reviewed from Dr Loyola, appreciate consult and ongoing assistance with pain regimen (8) Smoker: Status: Acute Assessment and plan: -recommend complete cessation. -12.08.24, Nicoderm patch at 21mcg daily (9) History of alcohol abuse: Status: Acute Assessment and plan: noted (10) Advanced care planning/counseling discussion: Status: Acute Assessment and plan: PT remains a full code Subjective Subjective Interval history since last seen: Long discussion was had with the patient regarding his current status and his pain. He was worried that the new pain regimen was going to drop his blood pressures further, and became tearful when he mentioned the possibility of decreasing his pain medications. I explained to him that his blood pressures are low, but within a tolerable level for him, especially since he is not experiencing any symptoms related to his low blood pressure. I reassured him that if it appears that his pain medication is causing any problems that we would talk and figure out an alternative pain regimen. I also told him that his job is to focus on asking for his pain medications as often as he thinks he needs them in an attempt to improve his ongoing pain. He states that his pain is at about a 4 and is the same as yesterday, though he has not required PRN IV (in addtition to the PO) since 6am 12/13. His parimary concern is to improve the pain enough for him to be able to ambulate again. I told him that we would continue to do our best in treating his pain, but did state that we may not be able to reach that goal. He expressed understanding of his current situation and of the plan. Exam Narrative Exam Narrative: Chronically ill severely cachectic appearing gentleman laying in bed, older than stated age, ANO x 4, heart regular rhythm, lungs clear to auscultation bilaterally, abdomen soft, nontender, nondistended, please review nurses notes for assessment of sacral wounds as they were recently redressed and dressing was not taken down by me Objective Last Vital Signs Temp 99.0 F 12/13/24 13:15 Pulse 75 12/13/24 15:05 Resp 11 L 12/13/24 15:05 BP 75/48 L 12/13/24 15:05 Pulse Ox 93 12/13/24 15:05 Time Spent with Patient Time Spent with Patient: >50 minutes Time was spent: preparing to see the patient(eg.review tests), obtaining and/or reviewing separately otained hiistory, ordering medications,tests, procedures, referring, communicating with other health child care attendant school, indepentently interpreting results, counseling the patient and care coordination
--- NOTE | 2024-12-13 17:04 | CHAPLAIN ---
I had a short visit with Ronaldo today. He talked about not being woken up during the night for his pain meds and then feeling like he had catch up on his pain control. (I mentioned this comment to his nurse when I left.) Rnoaldo was frustrated because his pain meds may be interfering with this blood pressure. I will continue to visit.
[2024-12-13] MEDS: MORPHine 2 MG/ML SYR IVP ×2 (18:51→20:45)
[2024-12-13] MEDS: Midodrine 2.5 MG TAB 10 MG PO (20:58)
[2024-12-13] MEDS: Lidocaine 4% Cream 5 GM TUBE TP (22:12)
[2024-12-14] VITALS (27 sets, daily range): BP systolic 75–99; BP diastolic 45–66; PULSE 59–101; RESP 8–18; TEMP 37.3–39.6; O2SAT 88–95
[2024-12-14] MEDS: MORPHine 2 MG/ML SYR IVP ×4 (00:05→11:28)
[2024-12-14] MEDS: MORPHine IR 15 MG TAB 45 MG PO ×4 (01:39→12:03)
[2024-12-14] MEDS: PIPERACILLIN/TAZO 3.375 GM in Normal Saline 50 ML IVPB ×3 (01:39→18:58)
[2024-12-14 04:42] LABS: COVID-19 PCR Negative (Negative); Influenza A PCR Negative (Negative); Influenza B PCR Negative (Negative); RSV PCR Negative (Negative)
[2024-12-14 05:08] LABS: Source Nasopharynx
[2024-12-14] MEDS: Levothyroxine 100 MCG TAB PO (05:11)
--- NOTE | 2024-12-14 08:49 | CMPROGNOTE_ITS ---
Date of service: 12/14/24 Time of Service: 08:49 Care Management Progress Note Progress Note Text Progress Note Text: Anant was sleeping soundly both times CM attempted to meet with him. As he is in a lot of pain and seldom finds relief, CM opted not to wake him. This afternoon Dr. Loyola came for a followup Palliative Care visit. Anant has metastatic cancer that remains untreated. He is a full code and has consistently verbalized that he wants everything done to treat his cancer and prolong his life. Unfortunately he has been very sick and has not been out of bed in a long time. When he is medically stable it is unlikely he will be able to return home and care for himself. Dr. Loyola hopes to be able to explore these issues with Anant and see what additional sources of support he may have. If Anant was agreeable, hospice would be a good option. Discharge Potential Discharge Needs: PCP F/U Appt Anticipated Barriers to Discharge: Medical Status Patient/Family Education Needs: Review discharge instructions, discuss Ask Me Three Transportation: Private vehicle Plan: Anticipate Anant will be discharged home with a resumption of [facility] RN for wound care, when medically cleared. He will follow up with his PCP, Palliative Care and plan of care and transport with family. CM will follow and continue to support discharge planning needs. Social Determinants of Health Screening Will the Patient Participate in the Screening?: Declined to provide Do you worry about having a steady place to live?: no
[2024-12-14] MEDS: Normal Saline Flush 10 ML SYR IVP ×2 (09:50→20:27)
[2024-12-14] MEDS: Acetaminophen 500 MG TAB 1000 MG PO ×3 (09:56→19:38)
[2024-12-14] MEDS: Midodrine 2.5 MG TAB 10 MG PO ×3 (09:56→19:38)
[2024-12-14] MEDS: Potassium Chloride 20 MEQ TABCR 40 MEQ PO ×2 (09:57→19:38)
[2024-12-14] MEDS: Apixaban 5 MG TAB PO ×2 (09:57→19:38)
[2024-12-14] MEDS: Magnesium Oxide 400 MG TAB PO ×2 (09:57→19:39)
[2024-12-14] MEDS: VANCOMYCIN/WATER (PEG) 1 GM/200 ML BAG IVPB ×2 (10:10→21:42)
[2024-12-14] MEDS: Calcium Carbonate *TUMS* 500 MG CHEW 1000 MG PO (10:54)
[2024-12-14] MEDS: fentaNYL 50 MCG PATCH TD (13:11)
[2024-12-14] MEDS: fentaNYL 100 MCG PATCH TD (13:13)
--- NOTE | 2024-12-14 16:52 | W.PALPGNOTE ---
Date of service: 12/14/24 Time of Service: 15:30 Assessment and Plan Assessment and plan (1) Primary cancer of anal canal: Status: Acute (2) Osteomyelitis, pelvis: Status: Acute (3) Abscess of leg without foot, left: Status: Acute (4) Advanced care planning/counseling discussion: Status: Acute (5) Palliative care encounter: Status: Acute Exam Narrative Exam Narrative: Patient is a 64-year-old gentleman with locally metastatic anal carcinoma with bone mets and chronic osteomyelitis now on day #7 of hospital admission for presumed sepsis with hypotension due to chronic osteomyelitis. Off IV pressors and on midodrine. But still with fairly low BPs. Continues to receive IV abx. Nursing reports: needs help with any repositioning, has not attempted to stand, no PT done. His Palliative Performance Scale score 30 and has not improved over the week. He is eating a small amount and drinking, but nursing notes reduced fluid intake requiring constant reminders.is Unfortunately, given the chronic osteomyelitis and acetabular bone met, it is unlikely that he will every be able to walk again. GIven that he lives alone and there is My impression is that his prognosis is not good, estimate a few weeks to a few months. -PC with [id number] Maame today. As Anant was slightly confused, I felt it necessary to reach out to her. Her impression is that Anant has gotten worse over the last month and is not doing well (no longer able to carry his bags, using a walked, in a lot more pain). She is aware that he is very ill and may be approaching his final weeks to months. She mentions that he has one friend from work [place]. Anant's brother usually do not visit(unclear why not). She could not think of anything that he would enjoy or want. I encouraged her to bring in her children (who Anant enjoys seeing) and also [employer] sandwiches (as he really enjoyed the last one she brought him). Questions answered #Goals of care: Asked pt for permission to discuss current situation and prognosis. HE told me he needed to think about the fact that he was finally able to lay in a new position. He then reiterated that he wanted to live as long as he could. He wants at least a trial of intubation and wants CPR if his heart stops (no change). Anant was not willing to talk about hospice today.It is possible discuss comfort measures without using the H word, and this may be the best way to move forward with getting Anant comfortable. Assessment: My impression is that Anant's prognosis is not good, estimate a few weeks to a few months, given poor PPS. Staff and tube room supervisor and even [id number] Maame have heard Anant say several things in the last 2 days that indicate he may be starting to process and accept his poor prognosis. But he is still not ready to discuss end of life care options and still want CPR and intubation.. Plan: -Patient remains full code. -Champlain visiting patient on a daily basis. -Continue to engage patient in GOC discussions when he is willing. #Pain: Currently patient getting fentanyl patch 150 mcg changed every 48 hours (360 mg OME). Over the last 24 hours he has received 7 doses of morphine 12 mg IV and 6 doses of oral morphine 45 mg p.o. Morphine dose totals 522 oral mg morphine equivalent. Pt able to be mildly confused today as well. Unclear if this is SE of increase pain med dose. He seems to be more comfortable and that staff was finally able to get him to lay on his back and even onto his left side. Given his prognosis and clinical situation, I feel that most improtant is to get pain in better control, even if he is exhibiting some confusion. Attempted to engage pt in this conversation to see what he felt, and he was tangential (perseverating on being able to lay on his back). After discussion with patient and nurse and hospitalist, patient is willing to try continuous opiate drip. -I recommend starting with Morphine at 6mg a hour with 6 mg morphine bolus. -However, due to both a national shortage of both morphine and hydromorphone, our pharmacy can only supply fentanyl for continuous opiate infusion. Dr. Miller will calculate equivalent dose and order. -Consider also adding very low dose BZD, as there is definitely an anxiety component, understandable given situation he finds himself in. #Disposition: Unclear where patient would go if he recovers enough to leave the hospital, He lives alone and tells me that there is no one who can stay with him or help him. SNF is an option, although he really does not want to go to a SNF. Gentle conversation about this today. Objective Last Vital Signs Temp 39.6 C H 12/14/24 13:21 Pulse 75 12/14/24 13:19 Resp 12 12/14/24 13:19 BP 96/56 L 12/14/24 13:19 Pulse Ox 92 12/14/24 13:19 Laboratory Results - last 24 hr 12/14/24 04:00 COVID-19 Source Nasopharynx SARS-CoV-2 (PCR) Negative Influenza Type A (PCR) Negative Influenza Type B (PCR) Negative RSV (PCR) Negative
--- NOTE | 2024-12-14 17:25 | PGE_ITS ---
Date of Service Date of service: 12/14/24 Time of Service: 17:25 Assessment and Plan Assessment and plan (1) Septic shock: Status: Acute Assessment and plan: -secondary to pelvic osteo as noted below -has been on zanc and zosyn, will continue -failed outpatient therapy of levaquin and flagyl, will need to discuss with [facility] [place] regimen once off of levophed and preparing for discharge -Had required Levophed and corticosteroids for prolonged period of time, but has since been weaned off of Levophed as of 5:30 AM on 12/13/2024 -Has been started on midodrine 3 times daily, now up to 10mg TID -systolics has been in the 80's with MAPs in the low 60, which is tolerable given his current condition and lack of symptoms -will consider decreasing pain regimen, starting IV fluids, or restarting pressors only if patients MAP continues to decline and patient become symptomatic (2) Osteomyelitis, pelvis: Status: Acute Assessment and plan: -admission ct of chest/abd/pelvis MPRESSION: 1. No evidence of thoracic metastatic disease. 2. No acute pulmonary process. 3. There has been marked progression of the destructive changes seen in the) EM and buttocks since the prior examination. There is now extension to the right ischium with destructive changes of the bones suggesting osteomyelitis. Metastatic focus cannot be excluded. 4. There are also multiple small ring-enhancing lesions in the soft tissues in the right thigh suspicious for metastatic disease or abscesses. 5. There are now destructive changes involving the right acetabulum with an associated ring-enhancing fluid collection. Infection versus metastatic disease. 6. Distended gallbladder without evidence of cholelithiasis. 7. Mild hepatomegaly. No evidence of a hepatic metastasis. Upper limits of normal in size spleen. 8. Findings were discussed with Dr. Cano at 12 05 p.m. on 12/05/2024 12/07/24 PT remains on vanc and zosyn. 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 -Pt does want to continue therapy in hopes of remission (see Palliative Care notes for further details) (4) Cancer cachexia: Status: Acute Assessment and plan: -Plan was to increase steroids for both appetite stimulation as well as hoping to improve bp. -Steroids have been discontinued with Levophed as noted above (5) Abnormal weight loss: Status: Acute Assessment and plan: -Most likely 2/2 underlying disease. (6) Acute DVT (deep venous thrombosis): Status: Acute Assessment and plan: -pt on eliquis 5mg po bid (7) Palliative care encounter: Status: Acute Assessment and plan: -Notes reviewed from Dr Loyola, appreciate consult and ongoing assistance with pain regimen -given ongoing difficulty with pain regimen, and lack of availability of drips for IV morphine or dilaudid, plan is to start IV fentanyl drip 60mcg/hr with Q3 0min 60mcg boluses (this was determined to be the equivalent fentanyl dose to what would have been the preferred morphine drip of 6mg/hr with Q30min 6mg boluses) (8) Smoker: Status: Acute Assessment and plan: -recommend complete cessation. -12.08.24, Nicoderm patch at 21mcg daily (9) History of alcohol abuse: Status: Acute Assessment and plan: noted (10) Advanced care planning/counseling discussion: Status: Acute Assessment and plan: PT remains a full code Subjective Subjective Interval history since last seen: Patient seen earlier in the day when he was understandably frustrated with getting behind on his pain regimen overnight, though he does state that it is improved at this time. He understands that we are working closely with Dr. Loyola of Paliative Care to maximize his pain relief. Exam Narrative Exam Narrative: Chronically ill severely cachectic appearing gentleman laying in bed, older than stated age, ANO x 4, heart regular rhythm, lungs clear to auscultation bilaterally, abdomen soft, nontender, nondistended, please review nurses notes for assessment of sacral wounds as they were recently redressed and dressing was not taken down by me Objective Last Vital Signs Temp 103.3 F H 12/14/24 13:21 Pulse 75 12/14/24 13:19 Resp 12 12/14/24 13:19 BP 96/56 L 12/14/24 13:19 Pulse Ox 92 12/14/24 13:19 Laboratory Results - last 24 hr 12/14/24 04:00 COVID-19 Source Nasopharynx SARS-CoV-2 (PCR) Negative Influenza Type A (PCR) Negative Influenza Type B (PCR) Negative RSV (PCR) Negative Time Spent with Patient Time Spent with Patient: >50 minutes Time was spent: preparing to see the patient(eg.review tests), obtaining and/or reviewing separately otained hiistory, ordering medications,tests, procedures, referring, communicating with other health career development specialist, indepentently interpreting results, counseling the patient and care coordination
[2024-12-14] MEDS: Normal Saline 1,000 ML 100 ML IV (18:02)
[2024-12-15] VITALS (26 sets, daily range): BP systolic 74–89; BP diastolic 42–57; PULSE 55–87; RESP 8–25; TEMP 37–37.1; O2SAT 90–97
[2024-12-15] MEDS: PIPERACILLIN/TAZO 3.375 GM in Normal Saline 50 ML IVPB ×3 (01:52→18:19)
[2024-12-15] MEDS: Normal Saline 1,000 ML 100 ML IV ×3 (03:49→21:53)
[2024-12-15] MEDS: Levothyroxine 100 MCG TAB PO (05:41)
[2024-12-15 07:00] LABS: HCT 30.9 % (40.0-50.0); HGB 9.8 g/dL (13.5-17.5); MCH 28.5 pg (27.0-33.0); MCHC 31.7 % (32.0-36.0); MCV 90 fL (80-95); MPV 9.2 fL (8.0-11.0); Platelet Count 262 10^3/uL (130-400); RBC 3.44 10^6/uL (4.36-5.78); RDW 16.2 % (11.8-14.1); WBC 20.25 10^3/uL (4.4-10.8)
[2024-12-15 07:25] LABS: Anion Gap 1.3 mmol/L (3-11); BUN 9 mg/dL (7-18); CO2 30.7 mmol/L (21.0-32.0); CREATININE 0.8 mg/dL (0.70-1.30); Calcium 8.8 mg/dL (8.5-10.1); Chloride 105 mmol/L (98-107); Estimated GFR 99.44 (mL/min/1.73m2); Glucose 70 mg/dL (74-106); Potassium 4.1 mmol/L (3.5-5.1); Sodium 137 mmol/L (136-145)
[2024-12-15] MEDS: Normal Saline Flush 10 ML SYR IVP ×3 (08:01→20:11)
[2024-12-15] MEDS: Midodrine 2.5 MG TAB 10 MG PO ×3 (08:02→20:09)
[2024-12-15] MEDS: Potassium Chloride 20 MEQ TABCR 40 MEQ PO ×2 (08:02→20:09)
[2024-12-15] MEDS: Acetaminophen 500 MG TAB 1000 MG PO ×3 (08:03→20:09)
[2024-12-15] MEDS: Magnesium Oxide 400 MG TAB PO ×2 (08:03→20:10)
[2024-12-15] MEDS: Apixaban 5 MG TAB PO ×2 (08:35→20:10)
--- NOTE | 2024-12-15 08:35 | PDOC.CMPRO ---
Date of service: 12/15/24 Time of Service: 08:35 Care Management Progress Note Progress Note Text Progress Note Text: Anant was lying on his left side today when CM met with him. That was the first time he has been in that position when CM visited. He had informed CM that his right side was the only position that was comfortable. Anant was started on a Fentanyl drip yesterday at 60 mcg/hr. He has struggled with pain control since admission and admitted that he was actually comfortable at the time of the visit. CM attempted to discuss discharge planning with Anant today. He has been consistent with verbalizing his intention to return home. He does not want to go to a SNF or any other setting for care. Anant is still a full code. He has, at times, stated that he is dying but also wants treatment for his cancer. When CM asked him if he thought he could manage at home by himself, he stated no. He went on to share that he really does not have anyone who can reliably help him. Anant has been on bedrest for almost the entire time he has been hospitalized and is very weak. If returning home is a viable option, it might be helpful to have PT weigh in on what his baseline looks like now and what, if anyting, can help him with strength and endurance. A PT consult has been placed. Discharge Potential Discharge Needs: PCP F/U Appt and Other Anticipated Barriers to Discharge: Medical Status Patient/Family Education Needs: Review discharge instructions, discuss Ask Me Three Transportation: Private vehicle Plan: Anticipate Anant will be discharged home with a resumption of [facility] RN for wound care, when medically cleared. He will follow up with his PCP, Palliative Care and plan of care and transport with family. CM will follow and continue to support discharge planning needs. Social Determinants of Health Screening Will the Patient Participate in the Screening?: Declined to provide Do you worry about having a steady place to live?: no
[2024-12-15] MEDS: VANCOMYCIN/WATER (PEG) 1 GM/200 ML BAG IVPB ×2 (10:36→21:49)
[2024-12-15] MEDS: Lidocaine 2% Jelly 11 ML SYR UD (12:56)
--- NOTE | 2024-12-15 13:00 | W.PALPGNOTE ---
Date of service: 12/15/24 Time of Service: 13:00 Subjective Subjective Interval history since last seen: discharge? where? if home, who will take care of him can he take care of himself in the state he is in? consider going somewhere? 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 Leticia Pressley 2. Akhil Hammner [place], brother can also be consulted for medical decisions Objective Last Vital Signs Temp 37.1 C 12/15/24 08:26 Pulse 71 12/15/24 08:26 Resp 8 L 12/15/24 10:00 BP 84/52 L 12/15/24 08:26 Pulse Ox 91 L 12/15/24 08:26 Laboratory Results - last 24 hr 12/15/24 06:00 WBC 20.25 H RBC 3.44 L Hgb 9.8 L Hct 30.9 L MCV 90 MCH 28.5 MCHC 31.7 L RDW 16.2 H Plt Count 262 MPV 9.2 Sodium 137 Potassium 4.1 Chloride 105 Carbon Dioxide 30.7 Anion Gap 1.3 L BUN 9 Creatinine 0.8 Est GFR (CKD-EPI 2020) 99.44 Glucose 70 L Calcium 8.8
--- NOTE | 2024-12-15 14:00 | IN_ITS ---
PT Notes Visit Reasons: Sepsis Physical Therapy Inpatient Initial Evaluation Date: 12/15/2024 Referring Doctor: Javad Miller MD PT Orders: PT CONSULT: Eval/treat Precautions: Fall. Standard. Activity as tolerated. 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 No evidence of thoracic metastatic disease. 2. No acute pulmonary process. 3. There has been marked progression of the destructive changes seen in the) EM and buttocks since the prior examination. There is now extension to the right ischium with destructive changes of the bones suggesting osteomyelitis. Metastatic focus cannot be excluded. 4. There are also multiple small ring-enhancing lesions in the soft tissues in the right thigh suspicious for metastatic disease or abscesses. 5. There are now destructive changes involving the right acetabulum with an associated ring-enhancing fluid collection. Infection versus metastatic disease. 6. Distended gallbladder without evidence of cholelithiasis. 7. Mild hepatomegaly. No evidence of a hepatic metastasis. Upper limits of normal in size spleen. 8. Findings were discussed with Dr. Cano at 12 05 p.m. on 12/05/2024. PMHX: All Active Problems Septic shock (Acute) Abscess of leg without foot, left (Acute) Acute DVT (deep venous thrombosis) (Acute) Osteomyelitis, pelvis (Acute) Metastatic cancer (Acute) 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 Bone mets, local metastases.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 (Acute) Cancer cachexia (Acute) Pelvic abscess in male (Acute) High risk medication use (Acute) Abnormal weight loss (Acute) Skin ulcer of perineum with fat layer exposed (Acute) History of alcohol abuse (Acute) Advanced care planning/counseling discussion (Acute) Palliative care encounter (Acute) Cancer related pain (Acute) Controlled substance agreement and informed consent obtained 12/14/2023Transportation insecurity due to lack of driver helper's license (Acute) Housing insecurity (Acute) Food insecurity (Acute) 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COPD (chronic obstructive pulmonary disease) (Chronic) Hypoalbuminemia due to protein-calorie malnutrition (Acute) Microcytic anemia (Acute) Smoker (Acute) Medical History ETOH abuse Resolved February 2023Status post radiation therapy Social History/Home Situation: Lives alone. Nursing support twice a week for wound re-dressing. Had been able to do his own grocery shopping, meals, and eating. Rides [facility] for all outside transport. Equipment Owned/DME: 4WW/standing walker with attached offset SPC Subjective: Highly anxious about moving and falling. Refused first attempt at moving aout of bed due to fatigue and pain level after wound dressing. Was willing to try out second attempt and started to roll onto edge of bed but was hurting too much when physical assistance was provided to his trunk and B LE that further attempt was deferred due to safety reasons. NUrse Nupur, Nurse Chirinos, Nurse Chirinos's student and this provider all tried to help patient off of bed but to no avail due to safety issues. Complained of pain in R shoulder that he claims happened during the first transfer he did early on in this admission. 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 PT came in to help with positioning and pain relieivng techniques were provided during wound dressing. Telemetry monitoring in place. IV through R UE. R UE muscles atrophied, R humeral head prominent. Cachexic. R perineal area red and minimally swollen. Colostomy bacg in place. Skin to B LE dry. Mental Status: Alert and oriented as to person, place, time, and purpose. Able to pay attention, focus, and respond appropriately. Pain: 7-8/10 generalized pain; patient complained of pain to touch in trunk and B LE Vital Signs: Closely monitored via tele. ROM: Right Upper Extremity: Shoulder Flexion less than 25% available AROM due to pain. Shoulder abduction less than 25% available AROM due to pain. Elbow flexion about 30 degrees. Wrist flexion WFL. Functional opening and closing of hand WFL. Left Upper Extremity: Shoulder Flexion lacks the last 25% of AROM. Shoulder ab duction lacks the last 25% of AROM. Elbow flexion WFL. Wrist flexion WFL. Functional opening and closing of hand WFL. Right Lower Extremity: Hip flexion less than 25% of available AROM . Hip abduction less than 25% of available AROM. Knee flexion 30 degres to 90 degrees. Ankle dorsiflexion WFL. Ankle plantarflexion WFL. Left Lower Extremity: Hip flexion lacks the last 25% of available AROM . Hip a bduction lacks the last 25% of available AROM. Knee flexion 45 degres to 90 degrees. Ankle dorsiflexion WFL. Ankle plantarflexion WFL. Strength: Right Upper Extremity: Shoulder flexors 2-/5. Shoulder abductors 2-/5. Elbow flexors 3-/5. Elbow extensors 3-/5. [facility] Assistant Director strong. Left Upper Extremity: Shoulder flexors 3-/5. Shoulder abductors 3-/5. Elbow flexors 4-/5. Elbow extensors 4-/5. Child Care Center Assistant Director strong. Right Lower Extremity: Hip flexors 2-/5. Hip abductors 2-/5. Knee flexors 3-/5. Knee extensors 3-/5. Ankle dorsiflexors 4-/5. Ankle plantarflexors 4-/5. Left Lower Extremity: Hip flexors 3-/5. Hip abductors 3-/5. Knee flexors 3-/5. Knee extensors 3-/5. Ankle dorsiflexors 4-/5. Ankle plantarflexors 4-/5. Bed Mobility/Transfers: Minimal cueing provided for use of B hands as needed for support, movement sequence, AD management, and posture to reduce fall risk and minimize pain report Rolling moderate assist of 2 using bed rails for support Supine to sit moderate assist of 4 for safety Sit to supine unable Sit to stand deferred Stand to sit deferred Bed to bedside commode deferred Bedside commode to bed deferred Bed to reclining chair deferred Reclining chair to bed deferred Gait: Deferred Balance: Static Sitting: Unable Dynamic Sitting: Unable Static Standing: Unable Dynamic Standing: Unable Special Tests: Mobility Limitations Standardized Measure [facility] AM-PAC 6 clicks Basic Mobility Inpatient Short Form: Raw Score: 7 CMS Score: 92% deficit Informed Consent/Education: Patient was instructed in purpose of PT consult and plan of care. Agreeable to proceed with established PT POC to achieve personal goals. Assessment: Depression, significant generalized pain, increased pain to touch, anxiety over falling, pelvic osteomyelitis, and worsening stage 4 SCC all limited ability of patient to perform 2 attempts at standing up this afternoon despite presence of 4-5 caregivers to help. Further mobility assessment was deferred due to safety concerns and to patient's emotional lability. Recommend use of mechanical lift for all essential transfers, unable to tolerate weight bearing on pelvis at this time. Patient presents with clinical signs and symptoms consistent with current/admitting diagnoses that have resulted to mobility limitations, gait instability, generalized weakness, and overall ADL decline as demonstrated by the following impairment level findings: 1. Decreased strength to B UE/LE, and trunk major muscle groups 2. Unable to sit up and stans up 3. Impaired activity tolerance 4. Limitation of joint range of motion in some joints B UE/LE as above 5. Significant generalized pain 6. Stage 4 SCC and osteomyelitis of pelvis Impairments are contributing to the following functional limitations: 1. Decline in bed mobility skills 2. Decline in transfer skills 3. Unable to ambulate without assistive device and physical assistance 4. Increased risk for falls 5. Increased risk for skin breakdown Patient is assessed as a 78584 high complexity based on the following: History: 64-year-old male with past medical history as indicated above Examination: Demonstrable impairment in strength, balance, and mobility level with underlying impairments and functional limitations as exhibited above as well as deficit score of 92%% utilizing the [facility] Mobility Inpatient Short Form Presentation: Evolving Decision Makin high complexity Goals: Goals X1 week 1. Supine<>sidelying stand by assist 2. Sidelying<>prone stand by assist 3. Sit<>Stand independent 4. Scoot and move B LE to edge of bed while in prone minimal assist 5. Push off from edge of bed to standing with minimal assist of 2 6. Standing balance and tolerance minimal assist of 2 for 5 minutes 7. Stand to prone at edge of bed minimal assist of 2 8. Scoot to head of bed while prone on forearms/elbows with minimal assit of 2 Plan of Care/Treatment Plan: 1-2x/day, 7 days/week x 1 week. Plan of care has been reviewed with the EXCELSIOR MACHINE FEEDER providing the service under Physical Therapy direction. Initiate Physical Therapy intervention for pain management as needed, strengthening, bed mobility, transfers, gait, stairs, balance training, and use of assistive device. DISCHARGE RECOMMENDATIONS: [] Home with no services [] [] Home with services [specify] [] Home with outpatient PT [] [] SNF for continued rehabilitation [] [] [facility] [] [X] SNF versus LTC based on ability to participate and progress TREATMENT CODE/TIME: 42898 x 30 minutes for 1 unit, 55876 x 39 minutes for 3 units (14:00-14:48 and 15:48-16:09). Thank you for the opportunity to participate in the care of this patient. Jo Nina PT, DPT, CLT [facility] [place], [place]
[2024-12-15] MEDS: Nicotine 21 MG/24 HR PATCH TD (16:08)
--- NOTE | 2024-12-15 16:47 | CHAPLAIN ---
Ronaldo was again off his right side today, and said he's been able to lay more toward his left said and be more comfortable, and get off his right hip and shoulder. Pain control has been an issue since he got here so this is a change for him. PT was coming into work with him as I was leaving, to see if he might be able to stand up with assistance. Ronaldo said he isn't sure if he can. I asked if he'd seen his sister in law lately and he said no, but was quick to explain that she has kids and can't be here all the time. I will continue to visit.
--- NOTE | 2024-12-15 17:41 | W.PM.PROGNOT ---
Date of Service Date of service: 12/15/24 Time of Service: 17:41 Assessment and Plan Assessment and plan (1) Septic shock: Status: Acute Assessment and plan: Long discussion was had with the patient late afternoon on 12/15/2024. He was seen after he had worked with physical therapy and attempt to stand up and ambulate. However, the patient was fixated on the fact that physical therapy and nursing were not strong enough in their ability to assist standing him up, he repeatedly stated that if he were able to send above he would be able to walk. However, when asked to think about the fact that he did not have the strength to assist in standing himself up, he appeared to come to the realization that he would not be able to ambulate. This then led into the discussion of where he resent the course of his current illness, with the patient verbalizing that he knows he is dying, and that he does not want to suffer and does not want to be in any pain. Specifically, we discussed what would happen if he were to stop breathing or his heart were to stop, and the patient was adamant that he would not want CPR or to be put on a ventilator knowing that it would only prolong his suffering. As such, his CODE STATUS has been changed to DNR/DNI. We continue to discuss his pain which understandably is his primary focus, and he understands that being a DNR/DNI will allow for more aggressive pain management, and I explained that I would increase his fentanyl drip for which he expressed gratitude. Patient then began to talk about where he would prefer to spend the rest of his days, and he was adamant that he would not want to be in a residential. He stated multiple times that he was comfortable with the staff here, and knew that we would take care of him in his final days. The idea of comfort measures was also brought up with the patient, and MD brief explanation of stating that we would just be focusing on his pain in his comfort he stated that is what he wanted. I did not specifically discuss that transitioning to comfort measures would also include discontinuation of care which would include stopping his antibiotics for his midodrine. I believe that with such a heavy discussion and significant change in acceptance of his current status, that pushing the idea of comfort measures would not be in his best interest at this time. However, I do believe that in the coming days he would be very open to the idea, thus warranting ongoing discussions. -12/14: given ongoing difficulty with pain regimen, and lack of availability of drips for IV morphine or dilaudid, plan is to start IV fentanyl drip 60mcg/hr with Q30min 60mcg boluses (this was determined to be the equivalent fentanyl dose to what would have been the preferred morphine drip of 6mg/hr with Q30min 6mg boluses) -12/15: increasing fentanyl drip to 66mcg/hr -secondary to pelvic osteo as noted below -has been on zanc and zosyn, will continue -failed outpatient therapy of levaquin and flagyl, will need to discuss with [facility] about antibiotics regimen once off of levophed and preparing for discharge -Had required Levophed and corticosteroids for prolonged period of time, but has since been weaned off of Levophed as of 5:30 AM on 12/13/2024 -Has been started on midodrine 3 times daily, now up to 10mg TID -systolics has been in the 80's with MAPs in the low 60, which is tolerable given his current condition and lack of symptoms -will consider decreasing pain regimen, starting IV fluids, or restarting pressors only if patients MAP continues to decline and patient become symptomatic (2) Osteomyelitis, pelvis: Status: Acute Assessment and plan: -admission ct of chest/abd/pelvis MPRESSION: 1. No evidence of thoracic metastatic disease. 2. No acute pulmonary process. 3. There has been marked progression of the destructive changes seen in the) EM and buttocks since the prior examination. There is now extension to the right ischium with destructive changes of the bones suggesting osteomyelitis. Metastatic focus cannot be excluded. 4. There are also multiple small ring-enhancing lesions in the soft tissues in the right thigh suspicious for metastatic disease or abscesses. 5. There are now destructive changes involving the right acetabulum with an associated ring-enhancing fluid collection. Infection versus metastatic disease. 6. Distended gallbladder without evidence of cholelithiasis. 7. Mild hepatomegaly. No evidence of a hepatic metastasis. Upper limits of normal in size spleen. 8. Findings were discussed with Dr. Cano at 12 05 p.m. on 12/05/2024 12/07/24 PT remains on vanc and zosyn. 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 (4) Cancer cachexia: Status: Acute Assessment and plan: -Plan was to increase steroids for both appetite stimulation as well as hoping to improve bp. -Steroids have been discontinued with Levophed as noted above (5) Abnormal weight loss: Status: Acute Assessment and plan: -Most likely 2/2 underlying disease. (6) Acute DVT (deep venous thrombosis): Status: Acute Assessment and plan: -pt on eliquis 5mg po bid (7) Palliative care encounter: Status: Acute Assessment and plan: -Notes reviewed from Dr Loyola, appreciate consult and ongoing assistance with pain regimen (8) Smoker: Status: Acute Assessment and plan: -recommend complete cessation. -12.08.24, Nicoderm patch at 21mcg daily (9) History of alcohol abuse: Status: Acute Assessment and plan: noted (10) Advanced care planning/counseling discussion: Status: Acute Assessment and plan: -now DNR/DNI, please see full discussion above Subjective Subjective Interval history since last seen: Prolonged discussion was had with the patient, please see details in assessment and plan. Objective Last Vital Signs Temp 98.8 F 12/15/24 08:26 Pulse 80 12/15/24 12:26 Resp 12 12/15/24 14:00 BP 80/57 L 12/15/24 12:26 Pulse Ox 94 12/15/24 12:00 Laboratory Results - last 24 hr 12/15/24 06:00 WBC 20.25 H RBC 3.44 L Hgb 9.8 L Hct 30.9 L MCV 90 MCH 28.5 MCHC 31.7 L RDW 16.2 H Plt Count 262 MPV 9.2 Sodium 137 Potassium 4.1 Chloride 105 Carbon Dioxide 30.7 Anion Gap 1.3 L BUN 9 Creatinine 0.8 Est GFR (CKD-EPI 2020) 99.44 Glucose 70 L Calcium 8.8 Time Spent with Patient Time Spent with Patient: >50 minutes Time was spent: preparing to see the patient(eg.review tests), obtaining and/or reviewing separately otained hiistory, ordering medications,tests, procedures, referring, communicating with other health resident care provider, indepentently interpreting results, counseling the patient and care coordination
[2024-12-16] VITALS (19 sets, daily range): BP systolic 84–97; BP diastolic 52–68; PULSE 67–88; RESP 10–20; TEMP 37–37.3; O2SAT 91–95
[2024-12-16] MEDS: PIPERACILLIN/TAZO 3.375 GM in Normal Saline 50 ML IVPB ×3 (01:12→17:40)
[2024-12-16] MEDS: Levothyroxine 100 MCG TAB PO (05:00)
[2024-12-16] MEDS: Normal Saline 1,000 ML 100 ML IV ×3 (05:03→23:42)
[2024-12-16] MEDS: Magnesium Oxide 400 MG TAB PO ×2 (08:44→20:58)
[2024-12-16] MEDS: Acetaminophen 500 MG TAB 1000 MG PO ×3 (08:44→20:57)
[2024-12-16] MEDS: Potassium Chloride 20 MEQ TABCR 40 MEQ PO ×2 (08:44→20:58)
[2024-12-16] MEDS: Normal Saline Flush 10 ML SYR IVP ×3 (08:45→21:10)
[2024-12-16] MEDS: Apixaban 5 MG TAB PO ×2 (08:45→20:56)
[2024-12-16] MEDS: Midodrine 2.5 MG TAB 10 MG PO ×3 (08:45→20:57)
[2024-12-16 09:14] LABS: Vancomycin, Trough 18.8 ug/mL (10.0-20.0)
--- NOTE | 2024-12-16 10:14 | PT.INTREAT ---
Date of service: 12/16/24 Time of Service: 10:00 PT Notes Visit Reasons: Sepsis Inpatient Physical Therapy Treatment Note [facility] Date: December 16, 2024 PRECAUTIONS:Fall. Standard. Activity as tolerated SUBJECTIVE: Ronaldo is agreeable to do some bed exercises however secondary to pain is unable to transfer. OBJECTIVE: ? PAIN: 8-07/18 generalized pain VITALS: Monitored via nursing Therapeutic Activities: Declined all transfers due to pain Gait Training: Declined ? Therapeutic Exercises (39854h4-29 minutes): Direct one-on-one instruction in therapeutic exercises to develop strength, endurance, range of motion and flexibility. ? Exercises: AA shoulder forward elevation x10 AA shoulder IR/ER x10 A elbow flexion quad sets x5 ankle pumps x10 AA knee flexion AA hip flexion as pain allowed ASSESSMENT:? Further mobility assessment was deferred due to safety concerns and to patient's emotional lability. Recommend use of mechanical lift for all essential transfers, unable to tolerate weight bearing on pelvis at this time. PLAN: Continue with POC TREATMENT CODE/TIME: [id number] minutes 10:00-10:15 am DISCHARGE RECOMMENDATION: SNF versus LTC based on ability to participate and progress
--- NOTE | 2024-12-16 11:17 | PGE_ITS ---
Date of Service Date of service: 12/16/24 Time of Service: 08:40 Assessment and Plan Assessment and plan (1) Septic shock: Status: Acute Assessment and plan: -secondary to pelvic osteo as noted below -has been on zanc and zosyn since admission 12/05/24 after failing outpatient therapy of levaquin and flagyl -Had required Levophed and corticosteroids for prolonged period of time, but has since been weaned off of Levophed as of 5:30 AM on 12/13/2024 -Has been started on midodrine 3 times daily, now up to 10mg TID -systolics has been in the 80's with MAPs in the low 60 without symptoms -We don't have cultures, unclear endpoint or antibiotics. (2) Osteomyelitis, pelvis: Status: Acute Assessment and plan: -admission ct of chest/abd/pelvis: 3. There has been marked progression of the destructive changes seen in the) EM and buttocks since the prior examination. There is now extension to the right ischium with destructive changes of the bones suggesting osteomyelitis. Metastatic focus cannot be excluded. 4. There are also multiple small ring-enhancing lesions in the soft tissues in the right thigh suspicious for metastatic disease or abscesses. 5. There are now destructive changes involving the right acetabulum with an associated ring-enhancing fluid collection. Infection versus metastatic disease. PT remains on vanc and zosyn. blood cultures are negative. Bone biopsy doesn't make sense given poor prognosis, but as above that leaves us without guidance for antibiotics. I think we are headed to [facility] so I will not change regimen for now. 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 -local spreading of destruction noted on admission CT as above. (4) Cancer cachexia: Status: Acute Assessment and plan: -Plan was to increase steroids for both appetite stimulation as well as hoping to improve bp. -Steroids have been discontinued with Levophed as noted above (5) Abnormal weight loss: Status: Acute Assessment and plan: -Most likely 2/2 underlying disease. (6) Acute DVT (deep venous thrombosis): Status: Acute Assessment and plan: -pt on eliquis 5mg po bid (7) Smoker: Status: Acute Assessment and plan: -recommended complete cessation on admission. -1.31.25, Nicoderm patch at 21mcg daily (8) Advanced care planning/counseling discussion: Status: Acute Assessment and plan: -Notes reviewed from Dr Loyola, appreciate consult and ongoing assistance with pain regimen -Long discussion with Dr. Miller and the patient late afternoon on 12/15/2024. He was seen after he had worked with physical therapy and unsuccessful attempt to stand up and ambulate. Led to understanding that he appears to be dying despite treatment of bone infection, CODE STATUS has been changed to DNR/DNI. [facility] status discussed then and again today 12/16, he still has ambivalent. I communicated my impression of his poor progrosis despite aggressive care. It's hard to imagine a scenario given his course so far in which he would improve enough to leave the hospital alive. Will continue to discuss. Subjective Subjective Patient reports: denies diarrhea, vomiting, shortness of breath or fever Interval history since last seen: 24 hr: Changed code to DNR/DNI after long discussion with Dr. Miller 12/15 He is still in a lot of pain today. He is very weak. He is drinking some fluids. Not eating much. He wants to smoke a cigarrette. He states he wants to live but he doesn't want to live like this. He is frustrated because he doesn't have the wound care supplies that was using from [facility] Exam Narrative Exam Narrative: Chronically ill severely cachectic appearing gentleman laying in bed, sedate, focus drifts, but then able to voice understanding. Uncomfortable with movement , cannot sit up or roll without assistance. heart regular rhythm, lungs clear to auscultation bilaterally. abdomen soft, nontender, nondistended. Large deep ulceration in area of sacrum not red or draining but very tender. Objective Last Vital Signs Temp 37.0 C 12/16/24 04:02 Pulse 80 12/16/24 08:01 Resp 14 12/16/24 08:01 BP 94/61 L 12/16/24 08:01 Pulse Ox 93 12/16/24 06:00 Laboratory Results - last 24 hr 12/16/24 08:10 Vancomycin Trough 18.8 Time Spent with Patient Time Spent with Patient: >50 minutes Time was spent: preparing to see the patient(eg.review tests), obtaining and/or reviewing separately otained hiistory, ordering medications,tests, procedures, referring, communicating with other health care taker, indepentently interpreting results, counseling the patient and care coordination
[2024-12-16] MEDS: VANCOMYCIN/WATER (PEG) 1.25 GM/250 ML BAG IVPB (12:08)
[2024-12-16] MEDS: fentaNYL 100 MCG PATCH TD (13:11)
[2024-12-16] MEDS: fentaNYL 50 MCG PATCH TD (13:11)
[2024-12-16] MEDS: Nicotine 21 MG/24 HR PATCH TD (13:17)
[2024-12-17] VITALS (16 sets, daily range): BP systolic 76–95; BP diastolic 48–64; PULSE 61–81; RESP 10–18; TEMP 37–37.4; O2SAT 92–95
[2024-12-17] MEDS: PIPERACILLIN/TAZO 3.375 GM in Normal Saline 50 ML IVPB ×2 (02:06→09:21)
[2024-12-17] MEDS: VANCOMYCIN/WATER (PEG) 1.25 GM/250 ML BAG IVPB (05:05)
[2024-12-17] MEDS: Levothyroxine 100 MCG TAB PO (05:05)
[2024-12-17] MEDS: Magnesium Oxide 400 MG TAB PO ×2 (08:24→20:26)
[2024-12-17] MEDS: Apixaban 5 MG TAB PO ×2 (08:25→20:26)
[2024-12-17] MEDS: Acetaminophen 500 MG TAB 1000 MG PO ×3 (08:25→20:25)
[2024-12-17] MEDS: Potassium Chloride 20 MEQ TABCR 40 MEQ PO ×2 (08:25→20:26)
[2024-12-17] MEDS: Normal Saline Flush 10 ML SYR IVP ×2 (08:26→20:26)
[2024-12-17] MEDS: Midodrine 2.5 MG TAB 10 MG PO ×3 (08:41→20:25)
[2024-12-17] MEDS: Normal Saline 1,000 ML 100 ML IV (09:58)
--- NOTE | 2024-12-17 13:32 | W.PM.PROGNOT ---
Date of Service Date of service: 12/17/24 Time of Service: 11:32 Assessment and Plan Assessment and plan (1) Septic shock: Status: Acute Assessment and plan: -secondary to pelvic osteo as noted below -has been on zanc and zosyn since admission 12/05/24 after failing outpatient therapy of levaquin and flagyl -Had required Levophed and corticosteroids for prolonged period of time, but has since been weaned off of Levophed as of 5:30 AM on 12/13/2024 -Has been started on midodrine 3 times daily, now up to 10mg TID -systolics has been in the 80's with MAPs in the low 60 without symptoms -We don't have cultures. He wants to go home. Will stop IV antibiotics, change to levofloxacin. (2) Osteomyelitis, pelvis: Status: Acute Assessment and plan: -admission ct of chest/abd/pelvis: 3. There has been marked progression of the destructive changes seen in the) EM and buttocks since the prior examination. There is now extension to the right ischium with destructive changes of the bones suggesting osteomyelitis. Metastatic focus cannot be excluded. 4. There are also multiple small ring-enhancing lesions in the soft tissues in the right thigh suspicious for metastatic disease or abscesses. 5. There are now destructive changes involving the right acetabulum with an associated ring-enhancing fluid collection. Infection versus metastatic disease. Vanc and zosyn since admission 12/02-12/17. blood cultures are negative. Bone biopsy doesn't make sense given poor prognosis, but as above that leaves us without guidance for antibiotics (culture negative osteomyelitis). I don't think this is curable given progressive ulcerating cancer growth, but reasonable to use oral antibiotics palliatively to keep infection at bay. To oral levofloxacin after a review of liturature on oral treatment for osteomyletis. 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 -local spreading of destruction noted on admission CT as above. (4) Cancer cachexia: Status: Acute Assessment and plan: -encourage protein intake. Nurition consult. (5) Abnormal weight loss: Status: Acute Assessment and plan: -Most likely 2/2 underlying disease. Resume monitoring of weight. (6) Acute DVT (deep venous thrombosis): Status: Acute Assessment and plan: -pt on eliquis 5mg po bid (7) Smoker: Status: Acute Assessment and plan: -recommended complete cessation on admission, though now that palliative focus we are not focusing on this. -Nicoderm patch at 21mcg daily (8) Advanced care planning/counseling discussion: Status: Acute Assessment and plan: -Notes reviewed from Dr Loyola, appreciate consult and ongoing assistance with pain regimen -Long discussion with Dr. Miller and the patient late afternoon on 12/15/2024. He was seen after he had worked with physical therapy and unsuccessful attempt to stand up and ambulate. Led to understanding that he appears to be dying despite treatment of bone infection, CODE STATUS has been changed to DNR/DNI. CLIENT SERVICE CONSULTANT status discussed then and again today 12/16, he still has ambivalent. I communicated my impression of his poor progrosis despite aggressive care. It's hard to imagine a scenario given his course so far in which he would improve enough to leave the hospital alive. -Today his focus was going home. He was able to voice understanding that his disease will kill him no matter what we do. He is now open to hospice. The barrier is a caregiver. He will consider if he has contacts that might fill this role, though he doesn't want someone living with him. I told him I understand his desire for home and we would look at all resources available. Work with PT in the mean time. -Plan to check back with palliative care 12/18 -Try to transition medication to oral/TD Subjective Subjective Patient reports: no new complaints; denies diarrhea, vomiting, shortness of breath or fever Interval history since last seen: He wants to go home. He doesn't want to here in a hospital bed. He continues to have chronic sacral pain, getting 72mcg/her plus 3 boluses overnight and his two patches. He is eating and drinking, but doesn't like shakes. Drinks a lot of soda. Likes icecream. Exam Narrative Exam Narrative: Chronically ill severely cachectic appearing gentleman laying in bed, alert and fully engaged in conversation today. No distress laying in bed. Still cannot sit up or roll without assistance. heart regular rhythm, lungs clear to auscultation bilaterally. abdomen soft, nontender, nondistended, colostomy in place. No LE edema. Large deep ulceration in sacrum not re-examined today. Objective Last Vital Signs Temp 37.0 C 12/17/24 05:00 Pulse 80 12/17/24 12:01 Resp 16 12/17/24 12:01 BP 89/53 L 12/17/24 12:01 Pulse Ox 94 12/17/24 07:30 Time Spent with Patient Time Spent with Patient: >50 minutes Time was spent: preparing to see the patient(eg.review tests), obtaining and/or reviewing separately otained hiistory, ordering medications,tests, procedures, referring, communicating with other health childcare attendant, indepentently interpreting results, counseling the patient and care coordination
[2024-12-17] MEDS: Protein Nutritional Supplement 16 GM 1 OUNCE PACKET PO (14:35)
--- NOTE | 2024-12-17 16:14 | NS.NUTBLAN_ITS ---
Date of service: 12/17/24 Time of Service: 14:00 Nutritional Consult ASSESSMENT: received request for nutrition consult regarding cachexia d/t cancer and osteomyelitis wound on pelvis. Colostomy in place - since last January. Pt also with PMH significant for COPD and food/housing/transportation insecurities which reveals negative SDoH influence. Weight loss totals ~4kg over the last year per weight data, with over a 2kg wt loss documented over the last 5 days - a 3.5% loss in bodyweight. Hosptialist ordered liquid protein concentrate TID today as well as daily weight checks. Pt has reported low intake for several months, over the last month eating mostly pasta, not meeting protein requirements with most food choices refined starch choices. Appetite has been poor to fair this admission with his selectivity adding to inadequate intake. Oral nutrition supplements have been continued to offer with low acceptance/refusal. encouraging high protein/kcal entrees and beverages. NFPE not fully performed but obvious wasting of temporal muscles, buccal and orbital fat pads, and squaring of the shoulders are easily observed. Current BMI of 15.9 congruent with extreme underweight. Pt denies difficulty eating due to chewing/dentition, swallowing concerns. Estimated energy needs: 1694kcals (recommend [id number]) for weight gain and support wound healing. 84g protein (1.5g/kg for wound healing and preventing continued breakdown), ~1700mL fluid (1mL per required kcal). NUTRITIONAL DIAGNOSIS: Nutrition Dx: Severe malnutrition related to inadequate protein-energy intake with increased protein-energy needs in the setting of acute illness in addition to chronic disease/condition (metastatic cancer in addition to soft tissue infection) as evidenced by significantly reduced PO intake - meeting <75% of energy needs over the last month or more, >2% loss of body weight over <1 week period, with mild fluid accumulation (trace to 1+ edema noted left leg/ankle); severe body fat (orbital and buccal fat pats, noticeable fat losses to rib- axillary) losses and severe muscle wasting (temporalis, shoulder.calvicular muscles and interosseous muscles). INTERVENTION: -Will continue to support patient oral intake with a variety of high kcal/protein menu items modified to his preference/ability. Will continue to offer oral nutrition supplements. will try [employer] medical drink with [facility] for wound healing to see if this is something he would take qd or bid. -Pt with no COLST form indicating decisions with artificial feeding - would suggest addressing this topic as refractory cachexia will become the main issue if he continues to fall short of his energy and protein requirements - enteral feeding is highly recommended at this point. -For wound healing, recommend 220mg Zinc sulfate, 500mg vitamin C BID, also suggest vitamin D lab and supplement due to hx of colostomy and for wound support. -continue with regular weight checks and liquid protein concentrate if he accepts this. MONITORING AND EVALUATION: will continue to monitor intake, labs, weight, supplement acceptance/toleration. Time Spent in Nutritional Counseling and Treatment: 10 minutes
[2024-12-17] MEDS: Lidocaine 2% Jelly 11 ML SYR UD (18:11)
[2024-12-18] VITALS (13 sets, daily range): BP systolic 91–99; BP diastolic 56–65; PULSE 67–112; RESP 12–23; TEMP 36.6–37.4; O2SAT 93–95
[2024-12-18 06:24] LABS: Abs Immature Grans 0.11 10^3/uL (0.0-0.06); Absolute Basophil Count 0.04 10^3/uL (0.0-0.2); Absolute Eosinophil Count 0.85 10^3/uL (0.0-0.7); Absolute Lymphocyte Count 0.45 10^3/uL (1.2-3.4); Absolute Neutrophil Count 12.49 10^3/uL (1.2-6.7); Basophils % 0.3 %; Eosinophils % 5.7 %; HCT 30.4 % (40.0-50.0); HGB 9.9 g/dL (13.5-17.5); Immature Grans % 0.7 %; MCH 28.9 pg (27.0-33.0); MCHC 32.6 % (32.0-36.0); MCV 89 fL (80-95); MPV 8.6 fL (8.0-11.0); Monocytes % 6.9 %; Neutrophils % 83.4 %; Platelet Count 253 10^3/uL (130-400); RBC 3.42 10^6/uL (4.36-5.78); RDW 16.2 % (11.8-14.1); RDW-SD 52.7 fL; WBC 14.98 10^3/uL (4.4-10.8)
[2024-12-18 06:26] LABS: Absolute Monocyte Count 1.03 10^3/uL (0.1-0.8)
[2024-12-18 06:32] LABS: Anion Gap 5.4 mmol/L (3-11); BUN 9 mg/dL (7-18); CO2 28.6 mmol/L (21.0-32.0); CREATININE 0.7 mg/dL (0.70-1.30); Calcium 8.7 mg/dL (8.5-10.1); Chloride 101 mmol/L (98-107); Estimated GFR 103.53 (mL/min/1.73m2); Glucose 90 mg/dL (74-106); Potassium 4.3 mmol/L (3.5-5.1); Sodium 135 mmol/L (136-145)
[2024-12-18] MEDS: Midodrine 2.5 MG TAB 10 MG PO ×3 (08:02→19:53)
[2024-12-18] MEDS: Acetaminophen 500 MG TAB 1000 MG PO ×3 (08:02→19:53)
[2024-12-18] MEDS: Levothyroxine 100 MCG TAB PO (08:03)
[2024-12-18] MEDS: Potassium Chloride 20 MEQ TABCR 40 MEQ PO ×2 (08:03→19:54)
[2024-12-18] MEDS: Apixaban 5 MG TAB PO ×2 (08:03→19:54)
[2024-12-18] MEDS: Magnesium Oxide 400 MG TAB PO ×2 (08:03→20:34)
[2024-12-18] MEDS: Normal Saline Flush 10 ML SYR IVP ×2 (08:09→19:55)
--- NOTE | 2024-12-18 09:11 | PDOC.CMPRO ---
Date of service: 12/18/24 Time of Service: 09:11 Care Management Progress Note Progress Note Text Progress Note Text: Anant was lying in bed watching TV when CM met with him. He was alert and oriented and engaged well with CM. Anant started working more with PT in the last few days and has made significant progress. Yesterday he was able to ambulate a few feet with his walker and was able to stand for his dressing change for almost 30 minutes. Anant informed CM that he wants to go home. He understands that he must continue to work with PT and get a little stronger. Another issue to address is pain control. Anant has been on a Fentanyl drip. He cannot be discharged with that in place. Today Dr. Loyola met with Pharmacy to review his current regimen to see how they could transition him to oral pain medication and still achieve good analgesia. The plan is to make the changes now to assess its effectiveness before he is discharged. Anant would have home health services for nursing, PT, OT and TECHNICAL SPEC and receive assistance and support from his friends, neighbors and landlord. Anant's goal is to be discharged by Wednesday. Discharge Potential Discharge Needs: Other (possible hospice) Anticipated Barriers to Discharge: Medical Status and SDOH Transportation: Other (to be determined by disposition) Plan: Ronaldo's discharge plan is unclear at this time. He is very weak and has a lot of pain, requiring a fentanyl drip for pain control. Anant lives alone and is not able to care for himself; he is not even able to get out of bed. Anant made the decision to change his code status on Wednesday. He is now a DNR/DNI. CM will continue to follow and support discharge planning efforts. Social Determinants of Health Screening Will the Patient Participate in the Screening?: Declined to provide Do you worry about having a steady place to live?: no
--- NOTE | 2024-12-18 09:33 | PTTR_ITS ---
PT Notes Visit Reasons: Sepsis Physical Therapy Inpatient Treatment Note Date: 12/18/2024 Precautions: Fall. Standard. Activity as tolerated. Subjective: Initially did not want to get up as he was not feeling well. Later in the morning, patient was agreeable to trying out standing to have his wound dressings changed and his bed done. Nurse Cedeno asked help from PT if he can be mobilized out of bed. Denied headache, chest pain, and lightheadedness throughout session. 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 PT came in to help with bed mobility and mobilizing patient out of bed with help of Nurses Vanessa, Brice santacruz, and Vanessa. Telemetry monitoring in place. IV through R UE. R UE muscles atrophied, R humeral head prominent. Cachexic. R perineal area red and minimally swollen. Colostomy bag in place. Skin to B LE dry. Mental Status: Alert and oriented as to person, place, time, and purpose. Able to pay attention, focus, and respond appropriately. Pain: 7-8/10 generalized pain; patient complained of pain to touch in trunk and B LE Vital Signs: Closely monitored via tele. Bed Mobility/Transfers: Minimal cueing provided for use of B hands as needed for support, movement sequence, AD management, and posture to reduce fall risk and minimize pain report Rolling moderate assist of 2 using bed rails for support Quarterturn to L moderate assist of 2 Quaretertun to standing up moderate assist of 2 and minimal assist of a third person Gait: Walked from edge of bed 6 steps towards the window. Patient was able to stand up while leaning onto his walker for about 30 minutes while his wounds were being re-deressed by Nurses Vanessa and Francia. Nurse Pao on stand by assist for any help needed. Balance: Static Sitting: Unable Dynamic Sitting: Unable Static Standing: Good Dynamic Standing: Fair Assessment: Finally was successfully able to be moved out of bed with the assistance of Nurse Feldman moving patient's chest up from bed and with Jese Cedeno as well Vanessa. Patient was able to stand up and lean onto his walker in standing while his wounds were being dressed. Will make sure to incorporate PT intrevention/mobilization along with wound dressing schedules to maximize compliance. Depression, significant generalized pain, increased pain to touch, anxiety over falling, pelvic osteomyelitis, and worsening stage 4 SCC all limited ability of patient to perform 2 attempts at standing up this afternoon despite presence of 4-5 caregivers to help. Recommend use of mechanical lift for all essential transfers, unable to tolerate weight bearing on pelvis at this time. Plan of Care/Treatment Plan: 1-2x/day, 7 days/week x 1 week. Plan of care has been reviewed with the PHOTO TECHNOLOGIST providing the service under Physical Therapy direction. Initiate Physical Therapy intervention for pain management as needed, strengthening, bed mobility, transfers, gait, stairs, balance training, and use of assistive device. DISCHARGE RECOMMENDATIONS: [] Home with no services [] [] Home with services [specify] [] Home with outpatient PT [] [] SNF for continued rehabilitation [] [] [facility] [] [X] SNF versus LTC based on ability to participate and progress TREATMENT CODE/TIME: 89496 x 57 minutes for 4 units (9:33-10:30).
[2024-12-18] MEDS: levoFLOXacin 500 MG TAB PO (11:18)
[2024-12-18] MEDS: Nicotine 21 MG/24 HR PATCH TD (11:19)
--- NOTE | 2024-12-18 11:33 | PGE_ITS ---
Date of Service Date of service: 12/18/24 Time of Service: 11:34 Assessment and Plan Assessment and plan (1) Septic shock: Status: Acute Assessment and plan: -secondary to pelvic wound with possible osteomyelitis as noted below -vancomycin and piperacillin/tazobactam from admission 12/05/24-12/17 after failing outpatient therapy of levaquin and flagyl -Had required Levophed and corticosteroids for prolonged period of time, but has since been weaned off of Levophed as of 5:30 AM on 12/13/2024 -Has been started on midodrine 3 times daily, now up to 10mg TID- -We don't have cultures. Now treating with doxycycline with goal palliation at this point. (2) Osteomyelitis, pelvis: Status: Acute Assessment and plan: -admission ct of chest/abd/pelvis: 3. There has been marked progression of the destructive changes seen in the) EM and buttocks since the prior examination. There is now extension to the right ischium with destructive changes of the bones suggesting osteomyelitis. Metastatic focus cannot be excluded. 4. There are also multiple small ring-enhancing lesions in the soft tissues in the right thigh suspicious for metastatic disease or abscesses. 5. There are now destructive changes involving the right acetabulum with an associated ring-enhancing fluid collection. Infection versus metastatic disease. Vanc and zosyn since admission 12/02-12/17. blood cultures negative. Bone biopsy doesn't make sense given poor prognosis, but as above that leaves us without guidance for antibiotics (culture negative osteomyelitis). Looking at [facility] record, he had CT guided biopsy of new right acetabular lesion that was read as osteomyelitis vs metastatic disease, and pathology was c/w metastatic disease rather than infection. Even if bone was infected, I don't think this is curable given progressive ulcerating cancer growth, but reasonable to use oral antibioti cs palliatively to keep infection at bay. On oral levofloxacin as above since 12/17, change to doxycycline 12/18 as he had failed levofloxacin in the past and it is more toxic. 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 Had radiation and chemotherapy with some improvement in 2022, then progression. Was on immune therapy with Dr. Everett, but stopped 2/2 underlying infections, progression was noted despite this. -local spreading and destruction noted on admission CT as above. (4) Cancer cachexia: Status: Acute Assessment and plan: -encourage protein intake. Nurition consulted, appreciate input. (5) Abnormal weight loss: Status: Acute Assessment and plan: -Most likely 2/2 underlying disease. Resume monitoring of weight. (6) Acute DVT (deep venous thrombosis): Status: Acute Assessment and plan: -pt on eliquis 5mg po bid (7) Smoker: Status: Acute Assessment and plan: -recommended complete cessation on admission, though now that palliative focus we are not focusing on this. -Nicoderm patch at 21mcg daily (8) Advanced care planning/counseling discussion: Status: Acute Assessment and plan: -Notes reviewed from Dr Loyola, appreciate consult and ongoing assistance with pain regimen -Long discussion with Dr. Miller and the patient late afternoon on 12/15/2024. He was seen after he had worked with physical therapy and unsuccessful attempt to stand up and ambulate. Led to understanding that he appears to be dying despite treatment of bone infection, CODE STATUS has been changed to DNR/DNI. 12/17 discussed hospice, which he is open to, but would need a 24hr caregiver which is not available. 12/18 he voiced understanding that he can't go home. -Tried again 12/18 to work with PT but unable to mobilize with weakness and pain. -Plan to check back with palliative care 12/18. I think PROCESS CONTROL TECH is the most appropriate based on my understanding of his prognosis and course. We also need official COLST. - Subjective Subjective Patient reports: denies diarrhea, nausea, vomiting, shortness of breath or fever Interval history since last seen: 24 hr events: Off IV abx, on levofloxacin 8 doses of prn fentanyl overnight Attempted PT today, unable to get up, severe pain with assist He is still in a good deal of pain, fentanyl helps IV but doesn't last, he isn't sure the patches do anything. He is eating and sleeping okay, though bed is uncomfortable. Appetite is good but can only eat so much. Exam Narrative Exam Narrative: Severely cachectic appearing gentleman laying in bed, alert and fully engaged in conversation today. No distress laying in bed. Still cannot sit up, only can roll partially to side without assistance. heart regular rhythm, lungs clear to auscultation bilaterally. abdomen soft, nontender, nondistended, colostomy in place. No LE edema. Large deep ulceration in sacrum not re-examined today. Objective Last Vital Signs Temp 37.4 C 12/18/24 08:00 Pulse 83 12/18/24 08:00 Resp 15 12/18/24 08:02 BP 96/62 L 12/18/24 08:00 Pulse Ox 93 12/18/24 02:00 Laboratory Results - last 24 hr 12/18/24 05:50 WBC 14.98 H RBC 3.42 L Hgb 9.9 L Hct 30.4 L MCV 89 MCH 28.9 MCHC 32.6 RDW 16.2 H Plt Count 253 MPV 8.6 Immature Gran % 0.7 Neutrophils % 83.4 Lymphocytes % 3.0 Monocytes % 6.9 Eosinophils % 5.7 Basophils % 0.3 Nucleated RBC % 0.0 Absolute Neutrophils 12.49 H Absolute Lymphocytes 0.45 L Absolute Monocytes 1.03 H Absolute Eosinophils 0.85 H Absolute Basophils 0.04 Sodium 135 L Potassium 4.3 Chloride 101 Carbon Dioxide 28.6 Anion Gap 5.4 BUN 9 Creatinine 0.7 Est GFR (CKD-EPI 2020) 103.53 Glucose 90 Calcium 8.7 Time Spent with Patient Time Spent with Patient: >50 minutes Time was spent: preparing to see the patient(eg.review tests), obtaining and/or reviewing separately otained hiistory, ordering medications,tests, procedures, referring, communicating with other health home care companion, indepentently interpreting results, counseling the patient and care coordination
[2024-12-18] MEDS: fentaNYL 50 MCG PATCH 100 MCG TD (14:24)
[2024-12-18] MEDS: fentaNYL 100 MCG PATCH TD (14:24)
--- NOTE | 2024-12-18 16:27 | CMPROGNOTE_ITS ---
Date of service: 12/18/24 Time of Service: 16:27 Care Management Progress Note Progress Note Text Progress Note Text: Ronaldo was lying in bed when CM met with him. He stated that his pain medication regiment is being changed, which has been problematic throughout his stay. He stated that his goal is to return home, but he doesn't know if that will be able to happen. He expressed his frustration about his discharge plan, which CM validated. He stated that he started working with PT, and hopes that he can get strong enough to walk again. CM will continue to follow. Discharge Potential Discharge Needs: PT Evaluation and PCP F/U Appt Anticipated Barriers to Discharge: Medical Status Patient/Family Education Needs: Review discharge instructions, discuss Ask Me Three Transportation: EMS Plan: Anticipate Anant will be discharged home with a resumption of [facility] RN for wound care, when medically cleared. He will follow up with his PCP, Palliative Care and plan of care and transport with family. CM will follow and continue to support discharge planning needs. Social Determinants of Health Screening Will the Patient Participate in the Screening?: Declined to provide Do you worry about having a steady place to live?: no
[2024-12-18] MEDS: Doxycycline Hyclate 100 MG CAP PO (19:54)
[2024-12-19] VITALS (9 sets, daily range): BP systolic 93–110; BP diastolic 62–72; PULSE 58–80; RESP 14–20; TEMP 36.6–37.6; O2SAT 92–100
--- NOTE | 2024-12-19 05:01 | W.PC.ACHO ---
Registration Status: Primary Language: Preferred Language: ED Information & Data Chief Complaint GenMedical 12/05/24 09:01 Triage Note Pt reports that he is unable 12/05/24 08:29 to eat and decreased mobility, appetite decreasing every day- no longer on cancer treatment ( 1 month or so completed) Medical / Surgical History Status post radiation therapy ETOH abuse Most Recent Vital Signs Temperature 37.2 C 12/19/24 02:20 Temperature Source Temporal Artery Scan 12/19/24 02:20 Pulse 69 12/19/24 02:20 Pulse 112 H 12/18/24 10:00 Respiratory Rate 16 12/19/24 02:20 Respiratory Effort Normal, Non-Labored 12/05/24 19:15 Respiratory Depth Normal 12/05/24 19:15 Respiratory Pattern Normal 12/05/24 19:15 Blood Pressure 96/64 L 12/19/24 02:20 Blood Pressure Mean 77 12/19/24 01:27 Blood Pressure Position Supine 12/05/24 08:44 Pulse Oximetry 96 12/19/24 02:20 Oxygen Delivery Method Room Air 12/19/24 02:20 Oxygen Flow Rate 0 12/19/24 02:20 Fraction of Inspired Oxygen (FIO2) 2 12/14/24 18:00 Pain Level 4 12/18/24 14:23 Comment please see monitor capture 12/17/24 16:33 Comment NorEpi off @0525 12/12/24 05:31 Allergies No Known Allergies Allergy (Verified 12/05/24 08:49) Precautions Isolation Standard precaution 12/05/24 08:44 Active Medications Generic Name Dose Route Start Last Admin Trade Name Freq PRN Reason Stop Dose Admin Acetaminophen 1,000 mg 12/06/24 14:00 12/18/24 19:53 Acetaminophen 500 Mg Tab PO 1,000 mg TID ОЛЬГА Administration Acidophilus 1 gm 12/06/24 08:30 12/18/24 08:09 Lactobacillus 1 Gram Granules Packet PO Not Given DAILY ОЛЬГА Apixaban 5 mg 12/05/24 20:00 12/18/24 19:54 Apixaban 5 Mg Tab PO 5 mg BID ОЛЬГА Administration Calcium Carbonate 1,000 mg 12/07/24 21:15 12/14/24 10:54 Calcium Carbonate *Tums* 500 Mg Chew PO 1,000 mg TID PRN PRN Administration Doxycycline Hyclate 100 mg 12/18/24 20:00 12/18/24 19:54 Doxycycline Hyclate 100 Mg Cap PO 100 mg BID ОЛЬГА Administration Fentanyl 100 mcg 12/06/24 12:00 12/18/24 14:24 Fentanyl 100 Mcg Patch TD 100 mcg Q48H ОЛЬГА Administration Fentanyl 100 mcg 12/18/24 12:00 12/18/24 14:24 Fentanyl 50 Mcg Patch TD 100 mcg Q48H ОЛЬГА Administration Fentanyl 2,500 mcg/ Sodium 250 mls @ 7.2 mls/hr 12/18/24 14:00 12/19/24 02:49 Chloride IV_INF 72 mcg/hr INFUSION ОЛЬГА 7.2 mls/hr Titration Protocol 72 MCG/HR Levothyroxine Sodium 100 mcg 12/07/24 06:00 12/18/24 08:03 Levothyroxine 100 Mcg Tab PO 100 mcg DAILY@0600 ОЛЬГА Administration Lidocaine HCl 11 ml 12/05/24 18:53 12/17/24 18:11 Lidocaine 2% Jelly 11 Ml Syr UD 11 ml TID PRN PRN Administration pain Magnesium Oxide 400 mg 12/08/24 20:00 12/18/24 20:34 Magnesium Oxide 400 Mg Tab PO 400 mg BID ОЛЬГА Administration Midodrine 10 mg 12/13/24 20:00 12/18/24 19:53 Midodrine 2.5 Mg Tab PO 10 mg TID ОЛЬГА Administration Multi-Ingredient Supplement 1 ounce 12/17/24 14:00 12/18/24 19:55 Protein Nutritional Supplement 16 Gm 1 Ounce Packet PO Not Given TID ОЛЬГА Nicotine 21 mg 12/06/24 13:28 12/18/24 11:19 Nicotine 21 Mg/24 Hr Patch TD 21 mg DAILY PRN PRN Administration Polyethylene Glycol 17 gm 12/05/24 20:00 12/18/24 19:54 Polyethylene Glycol 3350 17 Gm Packet PO Not Given HS ОЛЬГА Potassium Chloride 40 meq 12/07/24 20:00 12/18/24 19:54 Potassium Chloride 20 Meq Tabcr PO 40 meq BID ОЛЬГА Administration Sodium Chloride 0 ml 12/05/24 08:45 12/16/24 21:10 Normal Saline Flush 10 Ml Syr IVP 30 ml PRN PRN Administration Sodium Chloride 0 ml 12/05/24 20:00 12/18/24 19:55 Normal Saline Flush 10 Ml Syr IVP 40 ml BID ОЛЬГА Administration IV IV Catheter Type [R Midline] Saline Lock IV Catheter Type [Left Midline Mid-line Peripheral Line ] IV Catheter Type [Right Peripheral IV Forearm] IV Catheter Type [Left Forearm Peripheral IV ] IV Catheter Type [Left Peripheral IV Antecubital] IV Catheter Type [Right Saline Lock Antecubital] IV Catheter Gauge [Right 18 Forearm] IV Catheter Gauge [Left 18 Forearm] IV Catheter Gauge [Left 20 Antecubital] IV Catheter Gauge [Right 18 Antecubital] Diagnostics 12/18/24 Range/Units 05:50 WBC 14.98 H (4.4-10.8) 10^3/uL RBC 3.42 L (4.36-5.78) 10^6/uL Hgb 9.9 L (13.5-17.5) g/dL Hct 30.4 L (40.0-50.0) % MCV 89 (80-95) fL MCH 28.9 (27.0-33.0) pg MCHC 32.6 (32.0-36.0) % RDW 16.2 H (11.8-14.1) % Plt Count 253 (130-400) 10^3/uL MPV 8.6 (8.0-11.0) fL Immature Gran % 0.7 % Neutrophils % 83.4 % Lymphocytes % 3.0 % Monocytes % 6.9 % Eosinophils % 5.7 % Basophils % 0.3 % Nucleated RBC % 0.0 (0.0-0.3) % Absolute Neutrophils 12.49 H (1.2-6.7) 10^3/uL Absolute Lymphocytes 0.45 L (1.2-3.4) 10^3/uL Absolute Monocytes 1.03 H (0.1-0.8) 10^3/uL Absolute Eosinophils 0.85 H (0.0-0.7) 10^3/uL Absolute Basophils 0.04 (0.0-0.2) 10^3/uL Sodium 135 L (136-145) mmol/L Potassium 4.3 (3.5-5.1) mmol/L Chloride 101 (98-107) mmol/L Carbon Dioxide 28.6 (21.0-32.0) mmol/L Anion Gap 5.4 (3-11) mmol/L BUN 9 (7-18) mg/dL Creatinine 0.7 (0.70-1.30) mg/dL Est GFR (CKD-EPI 2020) 103.53 (mL/min/1.73m2) Glucose 90 (74-106) mg/dL Calcium 8.7 (8.5-10.1) mg/dL 12/14/24 09:30 Blood Culture - Preliminary Blood NO GROWTH 96 HOURS 12/14/24 09:15 Blood Culture - Preliminary Blood NO GROWTH 96 HOURS Intake and Output - 24 Hour Total 12/05/24 08:26 thru 12/19/24 03:29 Intake Total 20298.553 Output Total 05287 Balance 7394.553 Weight 56.3 [place] [address].553 Oral 8536 Output: Urine 01885 Stool 2170 Other: Urine Color Straw Light Roula Urine Appearance Clear Urine Odor Strong Comment Patient had voided in urinal prior to shift start. Stool Size Small Stool Characteristics Soft Falls Risk Assessment History of Falls No History 12/05/24 19:15 Contributing Factors Unstable,Medications 12/05/24 19:15 Ambulatory Aids Uses ambulatory device + 12/05/24 19:15 Tubes/Lines With any additional score 12/05/24 19:15 Gait Evaluation W/any additional score 12/05/24 19:15 Cognition No cognitive impairment 12/05/24 08:48 Fall Total Score 76 12/05/24 19:15 Level of Risk Maximum Risk 12/05/24 19:15 Problems Septic shock (Acute) Abscess of leg without foot, left (Acute) Acute DVT (deep venous thrombosis) (Acute) Osteomyelitis, pelvis (Acute) Metastatic cancer (Acute) Primary cancer of anal canal (Acute) 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 Initialized on 12/10/24 17:45 - END OF NOTE 12/06/24 10:22 Nursing Notes by Chelsea Leslie 12/06/24: 0715: During shift handoff patient requested his small backpack which he thought was with his belonging. I looked thru belonging with patient, off going nurse Spenser Mares RN and peggy Stern RN but did not find his requested backpack. Spenser Mares RN contacted the ED litigation legal secretary and inquired about patient's backpack. 0740: patient anxious and upset that he does not have his backpack. 0745: I went to the ED and also looked for his back pack and also checked with security with out success of locating his backpack. The quality control microbiology supervisor Francisco THOMAS was notified of situation. 0805:The patient called [facility], talked with personnel and requested that the skidder driver look in the back of his car to see if backpack was left in the car. 0840: patient relayed to me that [facility] called him back and was told the skidder driver saw him with his back pack after he left the car. Additional information from patient was that he remembered opening up his backpack in the room the put you when you enter the ED and then I put it on the floor. This information was also relayed by me to the quality control microbiology supervisor. the patient relayed that he is worried about finding his back pack as it has my ID, bank cards and about $400. It also has some of my dressing changes. Nursing Note: Initialized on 12/06/24 10:22 - END OF NOTE 12/05/24 12:52 Nursing Notes by Rhianna Dodge Nursing Note: pt in room, pt continuously lays on right side for comfort. His pain is triggered by movement/positional. the position in which he lays interferes with propor cardiac monitoring. the signal is not clear. Multiple leads placed in attempts to fix this however it was not improved. pt declines repositioning for monitoring. Initialized on 12/05/24 12:52 - END OF NOTE v v v v v v v v v Sending and/or Receiving Nurses: Please use comment section below to note any information pertinent to the patient hand-off not included above. Information / Comments: A+Ox4, Afebrile, LSC, HRR, weak PP, vomit food x 1, colostomy with stool and air, urinating urinal, 100mcg fentanyl patch x 1, 50mcg Fentanyl patch x 2 (all left shoulder), soft BP-midodrine, stands with 2 assist and walker Report received from: Angie Pan, RN [id number]
[2024-12-19] MEDS: Levothyroxine 100 MCG TAB PO (05:41)
[2024-12-19] MEDS: Protein Nutritional Supplement 16 GM 1 OUNCE PACKET PO (08:39)
[2024-12-19] MEDS: Doxycycline Hyclate 100 MG CAP PO ×2 (08:40→21:11)
[2024-12-19] MEDS: Magnesium Oxide 400 MG TAB PO ×2 (08:40→21:12)
[2024-12-19] MEDS: Acetaminophen 500 MG TAB 1000 MG PO ×3 (08:40→21:12)
[2024-12-19] MEDS: Midodrine 2.5 MG TAB 10 MG PO ×3 (08:40→21:11)
[2024-12-19] MEDS: Potassium Chloride 20 MEQ TABCR 40 MEQ PO ×2 (08:40→21:11)
[2024-12-19] MEDS: Normal Saline Flush 10 ML SYR IVP ×2 (08:41→21:13)
[2024-12-19] MEDS: Apixaban 5 MG TAB PO ×2 (08:42→21:13)
[2024-12-19] MEDS: Lidocaine 2% Jelly 11 ML SYR UD (12:14)
[2024-12-19] MEDS: Nicotine 21 MG/24 HR PATCH TD (13:59)
--- NOTE | 2024-12-19 15:40 | PCPN_ITS ---
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 Palliative care team has been involved to help with goals of care discussions as well as pain management. My first visit with patient today in about 4 days Updates: -Patient transferred out of ICU -Got out of bed yesterday and today and was able to stand for 30 minutes for wound care, and also walked in his room several times. #Goals of care: His primary goal is to be able to go home and to stay home as long as possible: -I need to take care of things. -Looking for privacy and [place] It is also important for him to have his pain controlled. He knows he will need help.. He is willing to accept any and all home health services that will assist him. HE will also get help from KER[facility] Wiggins and friend Estevan and his Analisa. Hospice: He does not want to admit to hospice: -If he goes home and gets sicker again, he wants to be able to come back to the hospital. Although he does NOT want CPR and does not want intubation, at this point he would want to try anything that would extend his life with the chance that he could return home, even for a short while. THis includes receiving antibiotics, pressors, IV fluids. -Also: he cannot identify anyone (or any group of people) who can provide 24/7 help, which is a requirement for being admitted to [facility]. -Briefly asked him that if in the future he was ready for hospice, and IF [facility] was would he be interested in going there for end of life. He is not interested at going there in the future. Also unclear if we would be bale to transfer him there. Life sustaining treatment: Patient confirms today that he does not want CPR or to be intubated. But does want to continue to be treated and transferred, recevie IV fluids and antibiotics- see above. COLST COMPLETED TODAY. #Pain: He needs to transition to a non-parenteral pain regimen in order to go home (as not admitting to hospice). Current pain meds over last 24 hours: 1. Fentanyl patch total 200mcg/hour (increased about 24 horus ago): unclear if this is being absorbed, given his cachexia. 2. Fentanyl drip: 72 mcg/hour plus two 80 mcg boluses = TOTAL (24 hours) 1888mcg/24 hours. -Using conversion of 1 mg ohsulvmw=309my fentanyl= 540 Oral Morphine equivalent (not counting fentanyl patches) Total OME (IV and TD fentanyl) calculated to be about 1,020 OME ( unclear if transdermal fentanyl is being absorbed, given his cachexia.) Note that this is a high amount, and may make providers uncomfortable. But patient has slowly been building to this level over a year, and these types of requirements are understandable given his wounds and extent of his cancer. He is not opiate naive. Consult today with pharmacist: we did IV fentanyl conversions to PO Xtampa (form of extended release oxycodone that is covered by medicaid, and he has used in the past), Morphine ER and methadone. Patient strongly prefers Xtampa at this time. Also note that he tends to be suspicious of long acting opiates and usually continues to take ample short acting. Therefore, below recommendations are based on reducing conversion for cross tolerance as well as his pattern of a strong preference for short acting. Since we are aiming for him to go home in 3 days, this gives team several days to observe and adjust medication dosages for adequate pain control Recommend: 1. Long acting oxycodone: Start Xtampa 36 mg TWO pills (total 72 mg) OR Oxycontin 40mg two pills (80mg total) every 8 hours. Note that this is less than 2/3 of calculated OME, but we are erring on caution and allowing for short acting opiates as well. 2. Order oxycodone short acting 15 mg 2 pills every 3 hours as needed for breakthrough pain. 3. Continue Fentanyl patches at 200 mcg change every 48 hours. Once pain on good control with oral opiates, could consider slowly tapering off while adding to oral pills, or leave as is. 4. Adjust long acting opiates every 36-48 hours. Note that patient has always had a strong preference for short acting opiates, so anticipate continued frequent short acting opiate use. (Alternative regimens are added here, mostly if needed in the future, due to not being covered by insurance or med shortage, for my future reference as well as yours,: Alternate 1: Morphine: could use MSER 120 mg Q 8h and then short acting Morphine 30 or 45 mg Q 3 h. Alternate 2: Methadone: Could start with Methadone 10mg TID or Q 8h. And then cover breakthough pain with oxycodone 15mg 2 pills every 3 hours as needed. Do not adjust methadone more often than every 5 days) We will check in with patient in 2 days. Please call Palliative provider with any questions if needed sooner. Discussed with hospitalist, skin lap bonder, nursing. Objective Last Vital Signs Temp 36.8 C 12/19/24 08:17 Pulse 80 12/19/24 08:17 Resp 18 12/19/24 08:17 BP 95/67 L 12/19/24 08:17 Pulse Ox 92 12/19/24 08:17
--- NOTE | 2024-12-19 16:20 | PT.INTREAT ---
PT Notes Visit Reasons: Sepsis Date: 12/19/2024 PRECAUTIONS: Fall. Standard. Activity as tolerated. SUBJECTIVE: Pt initially hesitated with participating with therapy, reports he wants his dressing done while in bed before doing PT. pt eventually agreed when this therapist explained that this therapist is limited to 11:00-12:00pm due to scheduling, collaborated with Nurse Chirinos for dressing and standing activity. OBJECTIVE: ? PAIN: 05/17 VITALS: closely monitored by nursing Therapeutic Activities 73413: Direct one-on-one instruction in dynamic activities to improve functional performance. ?? BED MOBILITY/TRANSFERS? Rolling L/R: Supervision Supine-sit: ?min A ? Sit-supine: ?min A ? Sit-stand: ?CGA? Stand-sit: ??CGA ? Bed-Chair:? ?CGA ? Chair-bed: CGA Provided skilled cues and instruction on performance and technique throughout. Gait Training 91806 15mins: Direct one-on-one instruction and skilled instruction in: Employing an assistive device Modified weight-bearing status Movement sequencing Turning and movement with proper form Provided verbal cues for equipment management and technique Patient education regarding pacing and breathing techniques to maximize activity tolerance? GAIT? Assistive Device: ??4WW? Weight bearing: FWB Assist: ?SBA ? Distance:?? 60' around the perimeter of pt room, with turns incorporated with activity to accommodate limited space. ? Deviation: ? slow, stoop forward low step height, short step length, wide step width. ? Therapeutic Activities 12242 45mins: instruction in dynamic activities with one on one patient contact by the provider to improve functional performance?as follows: Exercises/techniques: ?Static standing while dressing was being replaced by nurse Candis, weight shifting, SLS during donning brief and while wiping pt feet dry to avoid slipping, marching in place??? ASSESSMENT:?Pt able to tolerate activity standing the entire hour doing dressing change followed by gait training. pt requested to get back in bed after PT session. pt expressed he is happy he decided to allow dressing change as well as colostomy bag change and get PT session completed at the same time, looking forward to walking again in the afternoon. PLAN: Continue with balance training, global strengthening and general conditioning for improved safety, mobility and activity tolerance until pt is ready for DC. TREATMENT CODE/TIME: 41126t2, 23357z3 60mins (11:10-12:10pm)
--- NOTE | 2024-12-19 16:35 | W.PM.PROGNOT ---
Date of Service Date of service: 12/19/24 Time of Service: 16:36 Assessment and Plan Assessment and plan (1) Septic shock: Status: Acute Assessment and plan: -secondary to pelvic wound with possible osteomyelitis as noted below -vancomycin and piperacillin/tazobactam from admission 12/05/24-12/17 after failing outpatient therapy of levaquin and flagyl -Had required Levophed and corticosteroids for prolonged period of time, but has since been weaned off of Levophed as of 5:30 AM on 12/13/2024 -Has been started on midodrine 3 times daily, now up to 10mg TID- -We don't have cultures. Now treating with doxycycline with goal palliation at this point, has been stable on this. (2) Osteomyelitis, pelvis: Status: Acute Assessment and plan: -admission ct of chest/abd/pelvis: 3. There has been marked progression of the destructive changes seen in the) EM and buttocks since the prior examination. There is now extension to the right ischium with destructive changes of the bones suggesting osteomyelitis. Metastatic focus cannot be excluded. 4. There are also multiple small ring-enhancing lesions in the soft tissues in the right thigh suspicious for metastatic disease or abscesses. 5. There are now destructive changes involving the right acetabulum with an associated ring-enhancing fluid collection. Infection versus metastatic disease. Vanc and zosyn since admission 12/02-12/17. blood cultures negative. Bone biopsy doesn't make sense given poor prognosis, but as above that leaves us without guidance for antibiotics (culture negative osteomyelitis). Looking at [facility] record, he had CT guided biopsy of new right acetabular lesion that was read as osteomyelitis vs metastatic disease, and pathology was c/w metastatic disease rather than infection. Even if bone was infected, I don't think this is curable given progressive ulcerating cancer growth, but reasonable to use oral antibiotics palliatively to keep infection at bay. On oral levofloxacin as above since 12/17, change to doxycycline 12/18 as he had failed levofloxacin in the past and it is more toxic. No change. 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 Had radiation and chemotherapy with some improvement in 2022, then progression. Was on immune therapy with Dr. Everett, but stopped 2/2 underlying infections, progression was noted despite this. -local spreading and destruction noted on admission CT as above. (4) Cancer cachexia: Status: Acute Assessment and plan: -a/w weight loss. encourage protein intake. Nurition consulted, appreciate input. Encouraged to eat. he doesn't want a feeding tube. (5) Acute DVT (deep venous thrombosis): Status: Acute Assessment and plan: -pt on eliquis 5mg po bid (6) Smoker: Status: Acute Assessment and plan: -recommended complete cessation on admission, though now that palliative focus we are not focusing on this. -Nicoderm patch at 21mcg daily (7) Advanced care planning/counseling discussion: Status: Acute Assessment and plan: -Notes reviewed from Dr Loyola, appreciate consult and ongoing assistance with pain regimen -Long discussion with Dr. Miller and the patient late afternoon on 12/15/2024. He was seen after he had worked with physical therapy and unsuccessful attempt to stand up and ambulate. Led to understanding that he appears to be dying despite treatment of bone infection, CODE STATUS has been changed to DNR/DNI. 12/17 discussed hospice, which he is open to, but would need a 24hr caregiver which is not available. 12/18 he voiced understanding that he can't go home, but now he wants to go home. He still wants option of returning to hospital so not made [place] [place]ARD[place] despite pallitative focus. -Now making progress with PT -Appreciate palliative input. Transition pain medication from IV fentanyl to orals based on palliative input. Subjective Subjective Patient reports: no new complaints; denies diarrhea, nausea, vomiting, shortness of breath or fever Interval history since last seen: 24 hr: up on feet taking a few steps with PT No prn fentanyl last night/this morning He is needing less prn fentanyl today. He has been up, really wants to go home. States he is eating plenty. Exam Narrative Exam Narrative: Severely cachectic appearing gentleman laying in bed, alert and fully engaged in conversation today. No distress laying in bed. Rolling now on his own. heart regular rhythm, lungs clear to auscultation bilaterally. abdomen soft, nontender, nondistended, colostomy in place. No LE edema. Large deep ulceration in sacrum not re-examined today. No strength right arm with abduction, + drop arm. No muscular deformities. Objective Last Vital Signs Temp 36.8 C 12/19/24 08:17 Pulse 80 12/19/24 08:17 Resp 18 12/19/24 08:17 BP 95/67 L 12/19/24 08:17 Pulse Ox 92 12/19/24 08:17 Time Spent with Patient Time Spent with Patient: 35-49 minutes Time was spent: preparing to see the patient(eg.review tests), obtaining and/or reviewing separately otained hiistory, ordering medications,tests, procedures, referring, communicating with other health animal care assistant, indepentently interpreting results, counseling the patient and care coordination
--- NOTE | 2024-12-19 16:54 | CHAPLAIN ---
Ronaldo was in bed when I visited. Dr. Loyola from Palliative Care came in while I was there and she and Ronaldo completed a COLST form. Ronaldo said he doesn't want CPR or to be intubated but he wants to be able to return to the hospital if they can do something for me. He really wants to go home and has been working with PT to be more mobile so he can return to his home in [place] where he lives by himself. He said he usually stays on the couch there. His sister in law, who lives in [facility], checks on him and Ronaldo said he also sees the neighbors who live on the second floor. His apartment is the entire first floor. Ronaldo said he if only has a few months to live, he doesn't want to in a hospital. He was very clear about what meds he takes and understood the options Dr. Loyola discussed with him for oral pain meds.
[2024-12-19] MEDS: oxyCODONE-CR 20 MG TABCR 80 MG PO ×2 (17:23→23:50)
[2024-12-20 03:20] VITALS: BP 107/65; PULSE 66; RESP 18; TEMP 36.6; O2SAT 94
[2024-12-20] MEDS: Levothyroxine 100 MCG TAB PO (06:10)
[2024-12-20] MEDS: oxyCODONE 15 MG TAB 30 MG PO ×3 (06:16→21:06)
[2024-12-20 08:06] VITALS: BP 98/66; PULSE 77; RESP 18; TEMP 36.6; O2SAT 93
[2024-12-20] MEDS: oxyCODONE-CR 20 MG TABCR 80 MG PO ×2 (08:23→16:13)
[2024-12-20] MEDS: Protein Nutritional Supplement 16 GM 1 OUNCE PACKET PO ×2 (08:23→13:57)
[2024-12-20] MEDS: Doxycycline Hyclate 100 MG CAP PO ×2 (08:23→20:12)
[2024-12-20] MEDS: Midodrine 2.5 MG TAB 10 MG PO ×3 (08:24→20:12)
[2024-12-20] MEDS: Potassium Chloride 20 MEQ TABCR 40 MEQ PO ×2 (08:24→20:10)
[2024-12-20] MEDS: Magnesium Oxide 400 MG TAB PO ×2 (08:24→20:10)
[2024-12-20] MEDS: Apixaban 5 MG TAB PO ×2 (08:24→20:10)
[2024-12-20] MEDS: Normal Saline Flush 10 ML SYR IVP ×2 (08:25→21:06)
--- NOTE | 2024-12-20 08:58 | PDOC.CMPRO ---
Date of service: 12/20/24 Time of Service: 08:58 Care Management Progress Note Progress Note Text Progress Note Text: Anant was lying in bed when CM met with him. He was wide awake and stated that his pain was ok. He had been transitioned last evening to all oral agents in anticipation of an end of the week discharge. He stated that it wasn't gone but he felt that he might be able to manage it at home.Anant shared that the provider informed him that he did not feel it was safe for him to go home.. He lives alone and his care needs are great. Anant reported that if he felt ready, he intended to leave Wednesday, with or without an official discharge order. Anant does appear to have some anxiety about his discharge however. He had questions about his pain medications and who would be responsible for ordering refills when he goes home. He also expressed concern about his wound and ostomy supplies. [facility] does not carry the brand he has been using at home and [facility] is not going to be able to supply him with any more while he is hospitalized. They have been bringing in wound supplies but cannot continue to do so. They will supply him again when he goes home however so it should not be an issue. Discharge Potential Discharge Needs: PCP F/U Appt Anticipated Barriers to Discharge: Medical Status Patient/Family Education Needs: Review discharge instructions, discuss Ask Me Three Transportation: Private vehicle Plan: Anticipate Anant will be discharged home with a resumption of [facility] RN for wound care, when medically cleared. He will also have PT, OT and TRAIN OPERATIONS SUPERVISOR. He will follow up with his PCP, Palliative Care and plan of care and transport with family. CM will follow and continue to support discharge planning needs. Social Determinants of Health Screening Will the Patient Participate in the Screening?: Declined to provide Do you worry about having a steady place to live?: no
[2024-12-20 12:17] VITALS: BP 98/71; PULSE 73; RESP 18; TEMP 36.6; O2SAT 93
[2024-12-20] MEDS: Lidocaine 2% Jelly 11 ML SYR UD (13:15)
[2024-12-20] MEDS: fentaNYL 100 MCG PATCH 200 MCG TD (13:56)
[2024-12-20] MEDS: Acetaminophen 500 MG TAB 1000 MG PO ×2 (13:57→20:11)
[2024-12-20] MEDS: Nicotine 21 MG/24 HR PATCH TD (14:12)
--- NOTE | 2024-12-20 14:43 | CHAPLAIN ---
Ronaldo was angry and frustrated about not going home today. When I asked him if the plans were still for him to go home on Wednesday, he thought today was Wednesday and he was angry about not going home today. He didn't want anything to eat. He said people have been pushing food on him and he doesn't want to eat. Ronaldo completed a COLST form yesterday with Dr. 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
--- NOTE | 2024-12-20 15:01 | PTTR_ITS ---
PT Notes Visit Reasons: Sepsis Physical Therapy Inpatient Treatment Note Date: 12/20/2024 Precautions: Fall. Standard. Activity as tolerated. Subjective: Unsure about how much he can do for this session but happy with how great he did after. Worried about his R shoulder still. Continues to complain of pain all over. Denied headache, chest pain and lightheadedness during the walk. 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 IV through R UE. R UE muscles atrophied, R humeral head prominent. Cachexic. R perineal area red and minimally swollen. Colostomy bag in place. Skin to B LE dry. Mental Status: Alert and oriented as to person, place, time, and purpose. Able to pay attention, focus, and respond appropriately. Pain: 5/10 generalized pain; patient complained of pain to touch in trunk and B LE Vital Signs: Closely monitored by nursing staff Bed Mobility/Transfers: Minimal cueing provided for use of B hands as needed for support, movement sequence, AD management, and posture to reduce fall risk and minimize pain report Rolling moderate assist of 2 using bed rails for support Quarterturn to L minimal assist L Quartertun to partial sit up minimal assist of 2 Partial sit on edge of bed to standing minimal assist Gait: Covered a distance of 100 feet using 4WW with just contact guard assist form PT with forearms leaning onto walker, walker handles padded with towels for comfort. Balance: Static Sitting: Good Dynamic Sitting: Unable due to sacral/gluteal wound Static Standing: Good Dynamic Standing: Fair Assessment: Ambulated the farthest so far this afternoon using his 4WW requiring only contact guard assist, forearms onto walker. Fatigued afterwards. Patient will continue to require services to regain modified independence on all floor/ ground services. Complained of discomfort on the R foot. Plan of Care/Treatment Plan: 1-2x/day, 7 days/week x 1 week. Plan of care has been reviewed with the ROLL EDGE MACHINE OPERATOR providing the service under Physical Therapy direction. Initiate Physical Therapy intervention for pain management as needed, strengthening, bed mobility, transfers, gait, stairs, balance training, and use of assistive device. DISCHARGE RECOMMENDATIONS: [] Home with no services [] [] Home with services [specify] [] Home with outpatient PT [] [] SNF for continued rehabilitation [] [] Assisted Care [] [X] SNF versus LTC based on ability to participate and progress TREATMENT CODE/TIME: 30757 x 24 minutes for 2 units (14:18-14:42).
--- NOTE | 2024-12-20 16:13 | W.PM.PROGNOT ---
Date of Service Date of service: 12/20/24 Time of Service: 16:14 Assessment and Plan Assessment and plan (1) Septic shock: Status: Acute Assessment and plan: -secondary to pelvic wound with possible osteomyelitis as noted below -vancomycin and piperacillin/tazobactam from admission 12/05/24-12/17 after failing outpatient therapy of levaquin and flagyl -Had required Levophed and corticosteroids for prolonged period of time, but has since been weaned off of Levophed as of 5:30 AM on 12/13/2024 -Has been started on midodrine 3 times daily, now up to 10mg TID- -We don't have cultures. Now treating with doxycycline with goal palliation at this point, has been stable on this. (2) Osteomyelitis, pelvis: Status: Acute Assessment and plan: -admission ct of chest/abd/pelvis showing mulitple areas in pelvis of Infection versus metastatic disease. Vanc and zosyn 12/02-12/17. blood cultures negative. Bone biopsy doesn't make sense given poor prognosis, but as above that leaves us without guidance for antibiotics (culture negative osteomyelitis). Looking at [facility] record, he had CT guided biopsy of new right acetabular lesion that was read as osteomyelitis vs metastatic disease, and pathology was c/w metastatic disease rather than infection. Even if bone was infected, I don't think this is curable given progressive ulcerating cancer growth, but reasonable to use oral antibiotics palliatively to keep infection at bay. Doxycycline since 12/18 as he had failed levofloxacin in the past and it is more toxic. No change. 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 Had radiation and chemotherapy with some improvement in 2022, then progression. Was on immune therapy with Dr. Everett, but stopped 2/2 underlying infections, progression was noted despite this. -local spreading and destruction noted on admission CT as above. (4) Cancer cachexia: Status: Acute Assessment and plan: -a/w weight loss. encourage protein intake. Nurition consulted, appreciate input. Encouraged to eat. he doesn't want a feeding tube. (5) Acute DVT (deep venous thrombosis): Status: Acute Assessment and plan: -pt on eliquis 5mg po bid (6) Smoker: Status: Acute Assessment and plan: -recommended complete cessation on admission, though now that palliative focus we are not focusing on this. -Nicoderm patch at [facility] [place] daily (7) Advanced care planning/counseling discussion: Status: Acute Assessment and plan: -Notes reviewed from Dr Loyola, appreciate consult and ongoing assistance with pain regimen -Long discussion with Dr. Miller and the patient late afternoon on 12/15/2024. He was seen after he had worked with physical therapy and unsuccessful attempt to stand up and ambulate. Led to understanding that he appears to be dying despite treatment of bone infection, CODE STATUS has been changed to DNR/DNI. 12/17 discussed hospice, which he is open to, but would need a 24hr caregiver which is not available. 12/18 he voiced understanding that he can't go home, but now he wants to go home. 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 -Now making progress with PT -Appreciate palliative input. Transition pain medication from IV fentanyl to orals based on palliative input. He would like to stick with current oral medications -He is more angry and frustrated today, discussed need to make sure he is able to care for self so he doesn't bouce back immediately Subjective Subjective Patient reports: tolerating a regular diet; denies nausea, vomiting, shortness of breath or fever Interval history since last seen: He wants to go home. Per RN he thought 30mg oxycodone IR might be too much, but he tells me it doesn't work that much, but states he does not want any more pain meds. Oral meds do make it harder to eat as much, sit in his stomach. Walking with help of PT. States he will leave tomorrow no matter what. Exam Narrative Exam Narrative: Severely cachectic appearing gentleman laying in bed, alert and fully engaged in conversation today, more irritable today. No distress laying in bed. heart regular rhythm, lungs clear to auscultation bilaterally. abdomen soft, nontender, nondistended, colostomy in place. No LE edema. Large deep ulceration in sacrum not re-examined today. Objective Last Vital Signs Temp 36.6 C 12/20/24 12:17 Pulse 73 12/20/24 12:17 Resp 18 12/20/24 12:17 BP 98/71 L 12/20/24 12:17 Pulse Ox 93 12/20/24 12:17 Time Spent with Patient Time Spent with Patient: 25-34 minutes Time was spent: preparing to see the patient(eg.review tests), obtaining and/or reviewing separately otained hiistory, referring, communicating with other health personal care home administrator, indepentently interpreting results, counseling the patient and care coordination
[2024-12-20 22:52] VITALS: BP 94/56; PULSE 78; RESP 16; TEMP 36.7; O2SAT 93
[2024-12-21] MEDS: oxyCODONE-CR 20 MG TABCR 80 MG PO ×4 (00:17→23:00)
[2024-12-21] MEDS: oxyCODONE 15 MG TAB 30 MG PO ×3 (02:56→20:02)
[2024-12-21 02:57] VITALS: BP 90/60; PULSE 69; RESP 17; TEMP 36.5; O2SAT 90
[2024-12-21 08:24] VITALS: BP 95/68; PULSE 93; RESP 14; TEMP 36.3
[2024-12-21] MEDS: Acetaminophen 500 MG TAB 1000 MG PO ×2 (08:55→20:02)
[2024-12-21] MEDS: Magnesium Oxide 400 MG TAB PO (09:00)
[2024-12-21] MEDS: Levothyroxine 100 MCG TAB PO (09:00)
[2024-12-21] MEDS: Doxycycline Hyclate 100 MG CAP PO ×2 (09:01→20:02)
[2024-12-21] MEDS: Apixaban 5 MG TAB PO ×2 (09:02→20:02)
[2024-12-21] MEDS: Midodrine 2.5 MG TAB 10 MG PO ×3 (09:02→20:02)
[2024-12-21] MEDS: Normal Saline Flush 10 ML SYR IVP ×2 (09:08→20:03)
[2024-12-21] MEDS: Potassium Chloride 20 MEQ TABCR 40 MEQ PO (09:14)
--- NOTE | 2024-12-21 09:54 | CMPROGNOTE_ITS ---
Date of service: 12/21/24 Time of Service: 09:54 Care Management Progress Note Progress Note Text Progress Note Text: Anant was lying in bed when CM met with him this morning. He actually smiled at for the first time. He was bright and alert and eager to discuss his discharge plans. Anant has informed everyone that he intends to discharge home tomorrow. He identified several concerns and made some requests. First Anant stated that he did not have a ride and asked if CM could coordinate transportation with [facility]. At this point, because of his extensive wounds, Anant is unable to sit. That would meet the requirement for EMS transport. Anant also had concerns about the prescriptions for his pain medication.. JIMMY discussed the situation with Dr. Loyola this morning and she reported that Palliative Care and [facility] Shaikh have been working on the PAs required.. CM followed up with [facility] Boland and learned that the authorization has not been received yet but they agreed to order the Oxycontin as he will need it tomorrow. They indicated that it should be delivered by 11 am tomorrow. They went on to confirm that a friend could orange picker the prescriptions for Anant as long as they had a photo ID and Anant's correct date of . I Discharge Potential Discharge Needs: PCP F/U Appt and Other (palliative- Dr. Loyola) Anticipated Barriers to Discharge: Medical Status Patient/Family Education Needs: Review discharge instructions, discuss Ask Me Three Transportation: Private vehicle Plan: Anticipate Anant will be discharged home with a resumption of [facility] RN for wound care, when medically cleared. He will also have PT, OT and TANK FURNACE OPERATOR. He will follow up with his PCP, Palliative Care and plan of care and transport via EMS coordinated by CM. CM will follow and continue to support discharge planning needs. Social Determinants of Health Screening Will the Patient Participate in the Screening?: Declined to provide Do you worry about having a steady place to live?: no
--- NOTE | 2024-12-21 11:46 | PTTR_ITS ---
PT Notes Visit Reasons: Sepsis Physical Therapy Inpatient Treatment Note Date: 12/21/2024 Precautions: Fall. Standard. Activity as tolerated. Subjective: More motivated to walk farther today. Pain appeared to be more controlled. 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 IV through R UE. R UE muscles atrophied, R humeral head prominent. Cachexic. R perineal area red and minimally swollen. Colostomy bag in place. Skin to B LE dry. Mental Status: Alert and oriented as to person, place, time, and purpose. Able to pay attention, focus, and respond appropriately. Pain: 5/10 generalized pain Vital Signs: Closely monitored by nursing staff Bed Mobility/Transfers: Minimal cueing provided for use of B hands as needed for support, movement sequence, AD management, and posture to reduce fall risk and minimize pain report Rolling stand by assist using bed rail for support Quarterturn to L stand by assist using L bed rail L Quartertun to partial sit up contact guard assist Partial sit on edge of bed to standing stand by assist after guiding of R hand onto R walker handle Gait: Covered a total distance of 300 feet using 4WW with just contact guard assist form PT with PT Aminta providing wheelchair follow for safety. Patient did not need to sit down, briefly rested L forearm onto L handle and was able to stand up taller throughout the rest of the walk, one brief standing rest only. Balance: Static Sitting: Good Dynamic Sitting: Unable due to sacral/gluteal wound Static Standing: Good Dynamic Standing: Fair Assessment: Ambulated the farthest so far using his 4WW requiring only contact guard assist with much improved, more erect posture. Fatigued afterwards. Patient will continue to require services to regain modified independence on all floor/ ground services. Complained of discomfort on the R foot. Plan of Care/Treatment Plan: 1-2x/day, 7 days/week x 1 week. Plan of care has been reviewed with the CONCRETE BLOCK MASON providing the service under Physical Therapy direction. Initiate Physical Therapy intervention for pain management as needed, strengthening, bed mobility, transfers, gait, stairs, balance training, and use of assistive device. DISCHARGE RECOMMENDATIONS: [] Home with no services [] [] Home with services [specify] [] Home with outpatient PT [] [] SNF for continued rehabilitation [] [] Penitentiary Care [] [X] SNF versus LTC based on ability to participate and progress TREATMENT CODE/TIME: 62958 x 28 minutes for 2 units (11:48-12:16).
[2024-12-21 11:52] VITALS: BP 97/73
--- NOTE | 2024-12-21 14:32 | PGE_ITS ---
Date of Service Date of service: 12/21/24 Time of Service: 14:32 Assessment and Plan Assessment and plan (1) Septic shock: Status: Acute Assessment and plan: -secondary to pelvic wound with possible osteomyelitis as noted below -vancomycin and piperacillin/tazobactam from admission 12/05/24-12/17 after failing outpatient therapy of levaquin and flagyl -Had required Levophed and corticosteroids for prolonged period of time, but has since been weaned off of Levophed as of 5:30 AM on 12/13/2024 -Has been started on midodrine 3 times daily, now up to 10mg TID- -We don't have cultures. Now treating with doxycycline with goal palliation at this point, has been stable on this. (2) Osteomyelitis, pelvis: Status: Acute Assessment and plan: -admission ct of chest/abd/pelvis showing mulitple areas in pelvis of Infection versus metastatic disease. Vanc and zosyn 12/02-12/17. blood cultures negative. Bone biopsy doesn't make sense given poor prognosis, but as above that leaves us without guidance for antibiotics (culture negative osteomyelitis). Looking at [facility] record, he had CT guided biopsy of new right acetabular lesion that was read as osteomyelitis vs metastatic disease, and pathology was c/w metastatic disease rather than infection. Even if bone was infected, I don't think this is curable given progressive ulcerating cancer growth, but reasonable to use oral antibiotics palliatively to keep infection at bay. Doxycycline since 12/18 as he had failed levofloxacin in the past and it is more toxic. No change. 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 Had radiation and chemotherapy with some improvement in 2022, then progression. Was on immune therapy with Dr. Everett, but stopped 2/2 underlying infections, progression was noted despite this. -local spreading and destruction noted on admission CT as above. (4) Cancer cachexia: Status: Acute Assessment and plan: -a/w weight loss. encourage protein intake. Nurition consulted, appreciate input. Encouraged to eat. he doesn't want a feeding tube. (5) Acute DVT (deep venous thrombosis): Status: Acute Assessment and plan: -pt on eliquis 5mg po bid (6) Smoker: Status: Acute Assessment and plan: -recommended complete cessation on admission, though now that palliative focus we are not focusing on this. -Nicoderm patch at [facility] [place] daily (7) Advanced care planning/counseling discussion: Status: Acute Assessment and plan: -Notes reviewed from Dr Loyola, appreciate consult and ongoing assistance with pain regimen -Long discussion with Dr. Miller and the patient late afternoon on 12/15/2024. He was seen after he had worked with physical therapy and unsuccessful attempt to stand up and ambulate. Led to understanding that he appears to be dying despite treatment of bone infection, CODE STATUS has been changed to DNR/DNI. 12/17 discussed hospice, which he is open to, but would need a 24hr caregiver which is not available. 12/18 he voiced understanding that he can't go home, but now he wants to go home. 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 -Now making progress with PT -Appreciate palliative input. Transition pain medication from IV fentanyl to orals based on palliative input. He would like to stick with current oral medications -He is more angry and frustrated today, discussed need to make sure he is able to care for self so he doesn't bouce back immediately Subjective Subjective Interval history since last seen: Pt seen and examined in his room this am. Pt remains anxious to go home. POC was discussed with the pt as well as bedside nurse during MDR. POC was also d/w Dr Loyola via webex Exam Narrative Exam Narrative: Severely cachectic appearing gentleman laying in bed, alert and fully engaged in conversation today, more irritable today. No distress laying in bed. heart regular rhythm, lungs clear to auscultation bilaterally. abdomen soft, nontender, nondistended, colostomy in place. No LE edema. Large deep ulceration in sacrum not re-examined today. Objective Last Vital Signs Temp 36.3 C L 12/21/24 08:24 Pulse 93 H 12/21/24 08:24 Resp 14 12/21/24 08:24 BP 97/73 L 12/21/24 11:52 Pulse Ox 90 L 12/21/24 02:57 Time Spent with Patient Time Spent with Patient: 25-34 minutes Time was spent: preparing to see the patient(eg.review tests), obtaining and/or reviewing separately otained hiistory, ordering medications,tests, procedures, referring, communicating with other health emergency care attendant, indepentently interpreting results, counseling the patient and care coordination
[2024-12-21] MEDS: Nicotine 21 MG/24 HR PATCH TD (18:20)
[2024-12-21] MEDS: Patch Removal 1 EACH TD (18:29)
[2024-12-21 20:08] VITALS: BP 91/63; PULSE 77; RESP 15; TEMP 36.5; O2SAT 91
[2024-12-21 23:03] VITALS: BP 102/66; PULSE 75; RESP 18; TEMP 36.8; O2SAT 97
[2024-12-22] MEDS: oxyCODONE 15 MG TAB 30 MG PO ×3 (03:17→11:13)
[2024-12-22 04:41] VITALS: BP 90/57; PULSE 77; RESP 18; TEMP 37.1; O2SAT 96
[2024-12-22] MEDS: Levothyroxine 100 MCG TAB PO (05:11)
[2024-12-22 07:39] VITALS: BP 93/64; PULSE 92; RESP 16; TEMP 36.1; O2SAT 94
--- NOTE | 2024-12-22 08:17 | PCPN_ITS ---
Date of service: 12/22/24 Time of Service: 08:17 Subjective Subjective Interval history since last seen: Patient is a 64-year-old gentleman with locally metastatic anal carcinoma with bone mets and chronic osteomyelitis who has been inpt at [facility] now for 2 weeks after admitted with sepsis with hypotension. Palliative care team has been involved to help with goals of care discussions as well as pain management. Patient and [facility] Care Team are hoping he can be discharged home today. Updates: -Continued to walk up to 300 feet with PT. -Very anxious to go home -Hoping to have a wheelchair. (as per CM, will have to borrow one from [facility] as does not qualify if walking) #Goals of care: His primary goal is to be able to go home and to stay home as long as possible: It is also important for him to have his pain controlled. He knows he will need help.. He is willing to accept any and all home health services that will assist him. HE will also get help from KERA Kelly and friend and his Analisa. Hospice: He does not want to admit to hospice: -If he goes home and gets sicker again, he wants to be able to come back to the hospital. Although he does NOT want CPR and does not want intubation, at this point he would want to try anything that would extend his life with the chance that he could return home, even for a short while. THis includes receiving antibiotics, pressors, IV fluids. -Unfortunately he has no one who can provide 24/7 help, which is a requirement for being admitted to [facility]. Patient does not want CPR or to be intubated. But does want to continue to be treated and transferred, recevie IV fluids and antibiotics. #Pain: Transitioned to oral pain meds 2-3 days ago. Current pain meds over last 24 hours: 1. Fentanyl patch total 200mcg/hour. Unclear if this is being absorbed, given his cachexia. . I did not recommend that this be tapered, due to patient getting very upset with any changes and therefore aiming to just make one change at a time (i.e change from IV fentanyl drip to oral opiates, increasing transdermal fentanyl not chosen due to question of whether or not it was absorbed). 2. Oxycodone: -Oral oxycontin 80 mg (two x 40mg pills) = 240 mg -Short acting oxycodone 30mg x 4 doses previous 24 hours = 120 mg -total 360 mg oxycodone = OME of 540 mg /day 3. Total OME (If fentanyl being absorbed, which is unclear given cachexia)= 1,020 mg OME Scripts were sent in Wednesday. Palliative nurse worked with medicaid and Mindi's pharmacist since then to get multiple PAs and exemptions. 1. CM or Hospitalist to coordinate with [facility]'s Pharmacist to make sure all meds available today for family to peanut picker prior to patient leaving hospital: A. Fentanyl patches 100 mc patches (total 200 mcg) change every 48 hours, #15 B. Oxycontin 40mg tabs, 2 tabs (80 mg) Q 8h, 10 days' worth ( #60) C. Oxcodone 15 mg (2 pills or 30 mg every 3 horus as needed) 2. I am scheduled to see pt for f/u this coming Tuesday 12/26 (home visit or Telehealth) 3. PCP chronic resident care assistant to followup with pt as well. PCP will be coordinating abx. UNclear if pt wants to follow-up [facility] oncology Objective Last Vital Signs Temp 36.1 C L 12/22/24 07:39 Pulse 92 H 12/22/24 07:39 Resp 16 12/22/24 07:39 BP 93/64 L 12/22/24 07:39 Pulse Ox 94 12/22/24 07:39
[2024-12-22] MEDS: Normal Saline Flush 10 ML SYR IVP (08:24)
[2024-12-22] MEDS: Acetaminophen 500 MG TAB 1000 MG PO (08:25)
[2024-12-22] MEDS: Apixaban 5 MG TAB PO (08:25)
[2024-12-22] MEDS: Doxycycline Hyclate 100 MG CAP PO (08:26)
[2024-12-22] MEDS: oxyCODONE-CR 20 MG TABCR 80 MG PO (08:26)
[2024-12-22] MEDS: Magnesium Oxide 400 MG TAB PO (08:26)
[2024-12-22] MEDS: Midodrine 2.5 MG TAB 10 MG PO (08:27)
--- NOTE | 2024-12-22 09:23 | W.PM.DS.N ---
Date of service: 12/22/24 Time of Service: 09:23 DS: Diagnosis Discharge Diagnosis (1) Septic shock: Status: Acute (2) Osteomyelitis, pelvis: Status: Acute (3) Anal squamous cell carcinoma: Status: Acute (4) Cancer cachexia: Status: Acute (5) Acute DVT (deep venous thrombosis): Status: Acute (6) Smoker: Status: Acute (7) Advanced care planning/counseling discussion: Status: Acute Discharge Plan Disposition Patient Disposition: Home W/Home Health Services Condition: Stable Discharge Details Reason For Visit: Sepsis Admit Date/Time: 12/05/24 15:12 Admit Provider: Christian Freeman Attending Provider: Ysah Lopes Primary Care Provider: Sha Ramos Hospital Course Hospital Course: This is a 64-year-old gentleman who was admitted to the hospital on 12/05/2024 for sepsis as well as osteomyelitis and a 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 At the time of admission the patient needed pressure support with Levophed he was admitted to the ICU. Patient had a prolonged stay in the hospital of over 17 days and during that stay Dr. Loyola of the palliative care service discussed the case with Dr. Everett who is his oncologist who did not give any specific recommendations. The patient was not getting chemotherapy secondary to continued osteomyelitis. In the outpatient setting he was on Levaquin and Flagyl but failed these. While the patient was in the hospital he did get serial CBCs and CMP's with general improvement. The patient did remain protein malnourished with a BMI of 15 but refused high-calorie or protein drinks. While he was in the hospital he did switch to DNR status but does want to have ability to come back to the hospital if his condition worsens. While he was here he did get a scrotal ultrasound CT of his chest abdomen and pelvis and I will attach these documents to the body of this report. CT did show marked progression of destructive same changes with extension of the right ischium a distended gallbladder but no cholelithiasis. On the the patient asked to be discharged home to which we agreed. Dr. Loyola of the palliative care service did put in for the patient's pain meds. I will give prescriptions for his midodrine as well as doxycycline which she is hopefully going to be able to keep his infection at bay. Home Meds and New Rx's Prescriptions: New doxycycline hyclate 100 mg Capsule 100 mg PO BID Qty: 60 1RF midodrine 2.5 mg Tablet 10 mg PO TID Qty: 90 1RF Continued acetaminophen 325 mg tablet 1,000 mg PO TID Qty: 300 12RF Lactobacillus acidoph-L.bulgar [Floranex] 100 million cell granules in packet 1 packet PO DAILY Qty: 30 6RF polyethylene glycol 3350 17 gram powder in packet 17 g PO HS Qty: 325 12RF lidocaine 5 % cream 1 applic topical TID PRN (Reason: pain) Qty: 120 12RF fentanyl 100 mcg/hr patch 72 hour 2 patch transdermal Q48H MDD 200 mcg Qty: 15 0RF Rx Instructions: Plan is for pt to go home from hospital this Wednesday12/23/24 and will need prior to discharge. He will ALSO be on Xtampa and short acting oxycodone. Current OME needs in hospital total about 1,000 mg due to high pain from cancer oxycodone myristate 36 mg cap,sprinkl,ER12hr(DONT CRUSH) 72 mg PO .q 8 h MDD 6 pills 10 Days Qty: 60 0RF Rx Instructions: must administer with a meal/food; Plan is for pt to go home from hospital this Wednesday12/23/24 and will need prior to discharge. He will ALSO be on Fentanyl patches and short acting oxycodone. Current OME needs in hospital total about 1,000 mg due to high pain from cancer. Will likely need PA, please call office [phone] for addl info. TY oxycodone 15 mg tablet See Rx Instructions PO .q 3 h MDD 8 pills PRN (Reason: pain) Qty: 180 0RF Rx Instructions: 1-2 pills (15-30 mg) orally Q 3 H PRN; Plan is for pt to go home from hospital this Wednesday12/23/24 and will need prior to discharge. He will ALSO be on Xtampa and Fentanyl patches. Current OME needs in hospital total about 1,000 mg due to high pain from cancer oxycodone [OxyContin] 40 mg tablet,oral only,ext.rel.12 hr 80 mg PO Q8H MDD 6 pills Qty: 60 0RF Rx Instructions: Insurance wants OxyContin rather than xtampa. I think we have PA accepted. This is 10 days' worth. We will continue and order more if he remains home, TY apixaban 5 mg tablet 5 mg PO BID Qty: 60 12RF Rx Instructions: Start 5/2 oxycodone 20 mg tablet See Rx Instructions PO Q4H MDD 12 pills Qty: 240 0RF Rx Instructions: 1-2 pills every 4 hours as needed for pain orally every 4 hours; lidocaine HCl [Glydo] 2 % jelly in applicator 1 applic topical QD-TID PRN (Reason: pain) Qty: 250 4RF levothyroxine 100 mcg tablet 100 mcg PO DAILY Patient Comments: TAKE ONE TABLET BY MOUTH EVERY DAY Dakin's Solution 0.5 % Solution 473 ml topical DIRECTED Qty: 473 12RF Rx Instructions: daily dressing changes Discontinued metronidazole 500 mg tablet 500 mg PO TID levofloxacin 750 mg tablet 750 mg PO DAILY Patient Comments: TAKE ONE TABLET BY MOUTH EVERY DAY- picked up but never started Discharge Instructions Referrals: Sha Ramos [Primary Care Provider] - (follow up in 3-5 days) Activity:: Activity as Tolerated Equipment/Supplies:: No Equipment Needed Diet:: As Tolerated Discharge Orders Discharge Orders: Discharge Order (Routine); Ordered 12/22/24 Ordered By: aYsh Lopes DS: Summary Time Spent with Patient providing and/or coordinating discharge services: Greater than 30 minutes Status at Discharge Functional status at discharge: uses cane/walker Overall status at discharge: patient is progressing back to baseline Mental Status: mental status grossly normal Speech and Movement: agitated Mood: angry and irritable mood Affect: labile affect Quality:SDOH Health Related Social Needs: Health related social needs details patient unable to participate at this time in page 2 assessment Exam Narrative Exam Narrative: Severely cachectic appearing gentleman laying in bed, alert and fully engaged in conversation today, more irritable today. No distress laying in bed. heart regular rhythm, lungs clear to auscultation bilaterally. abdomen soft, nontender, nondistended, colostomy in place. No LE edema. Large deep ulceration in sacrum not re-examined today. Psych Mental Status: mental status grossly normal Speech and Movement: agitated Mood: angry and irritable mood Affect: labile affect DS: Data Vitals/I&O Vitals and I&O: Vital Signs Temperature 36.1 C L 12/22/24 07:39 Temperature Source Temporal Artery Scan 12/22/24 07:39 Pulse 92 H 12/22/24 07:39 Pulse 112 H 12/18/24 10:00 Respiratory Rate 16 12/22/24 07:39 Respiratory Effort Normal, Non-Labored 12/05/24 19:15 Respiratory Depth Normal 12/05/24 19:15 Respiratory Pattern Normal 12/05/24 19:15 Blood Pressure 93/64 L 12/22/24 07:39 Blood Pressure Mean 77 12/19/24 01:27 Blood Pressure Position Supine 12/05/24 08:44 Pulse Oximetry 94 12/22/24 07:39 Oxygen Delivery Method Room Air 12/22/24 07:39 Oxygen Flow Rate 0 12/22/24 07:39 Fraction of Inspired Oxygen (FIO2) 2 12/14/24 18:00 Pain Level 2 12/22/24 07:39 Comment pT refused vital signs 12/21/24 14:56 Comment NorEpi off @0525 12/12/24 05:31 Intake & Output 12/21/24 12/21/24 12/22/24 11:59 23:59 11:59 Intake Total 240 / 240 Output Total 1025 / 1325 300 / 1325 200 / 200 Balance -1025 / -1085 -60 / -1085 -200 / -200 Intake: IV 0 / 0 Oral 240 / 240 Output: Urine 875 / 1175 300 / 1175 200 / 200 Stool 150 / 150 Other: Urine Color Yellow Light Roula Yellow Urine Appearance Clear Clear Urine Odor None Stool Characteristics Soft PFSH All Active Problems Pain from bone metastases (Acute) DNR (do not resuscitate) (Acute) 12/19/2024 COLST: DNR/DNR + transfer and +treat, +abx and + IV fluids. 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 Bone mets, local metastases. 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 (Acute) Housing insecurity (Acute) Food insecurity (Acute) 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 COPD (chronic obstructive pulmonary disease) (Chronic) Hypoalbuminemia due to protein-calorie malnutrition (Acute) Microcytic anemia (Acute) Smoker (Acute) Medical History ETOH abuse Resolved February 2023 Status post radiation therapy Family History Other Cancer Social History Smoking/Tobacco Use Status: Current every day Tobacco Type: cigarettes Smoking risk assessment performed?: Yes Alcohol Intake: former Drug use: Rarely Substance use type: marijuana Housing: apartment Do you feel safe at home: Yes Do you feel safe in your relationship?: Yes Time Spent with Patient Time Spent with Patient: 70-84 minutes4 Time was spent: preparing to see the patient(eg.review tests), obtaining and/or reviewing separately otained hiistory, ordering medications,tests, procedures, referring, communicating with other health health care recruiter, indepentently interpreting results, counseling the patient and care coordination
--- NOTE | 2024-12-22 15:15 | CMDISCH_ITS ---
Date of service: 12/22/24 Time of Service: 15:15 LACE Index Scoring Tool Questions: Length of Stay (in days): 14 or more Was the patient admitted via the E.D.?: Yes Comorbidities: Chronic Pulmonary Disease and Metastatic Solid Tumor E.D. 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 He will follow up with his PCP and plan of care and transport via EMS coordinated by CM. Patient/Family Education Needs: Review discharge instructions, limitations, follow up plan and discuss Ask Me Three. Services Needed at Discharge: Home Health Care Services and Transportation SDOH Health Related Social Needs: Health related social needs details patient unable to participate at this time in page 2 assessment
--- NOTE | 2024-12-22 16:50 | CHAPLAIN ---
Ronaldo was discharged today. I visited him this morning and he said his sister in law was picking up his meds at the pharmacy. He was very much looking forward to getting home. While he was here, he changed his code status to DNR/DNI but did not want to sign on to hospice because he would choose to return to the hospital if there's something they can do for me. He also doesn't have a caregiver at home, as required by hospice.
== END 2024-12-22 12:19 | disposition home health service (06) | DRG 871 ==
LOC: ER 16:05 → ICU 18:50 → MS 12-19 02:00
PROVIDERS: Family Medicine; Admitting Provider Family Medicine; Emergency Provider Emergency Medicine; PCP Physician Assistant; Responsible Provider Hospitalist; Visit Provider Hospitalist
DX: A41.9 Sepsis, unspecified organism (principal); R65.21 Severe sepsis with septic shock; C21.1 Malignant neoplasm of anal canal; Z68.1 Body mass index [BMI] 19.9 or less, adult; C79.51 Secondary malignant neoplasm of bone; M86.18 Other acute osteomyelitis, other site; E88.A Wasting disease (syndrome) due to underlying condition; G89.3 Neoplasm related pain (acute) (chronic); F17.200 Nicotine dependence, unspecified, uncomplicated; F10.11 Alcohol abuse, in remission; Z93.3 Colostomy status; Z66 Do not resuscitate; Z79.01 Long term (current) use of anticoagulants; Z59.82 Transportation insecurity; D72.829 Elevated white blood cell count, unspecified; J44.9 Chronic obstructive pulmonary disease, unspecified; D50.9 Iron deficiency anemia, unspecified; Z86.718 Personal history of other venous thrombosis and embolism; L89.212 Pressure ulcer of right hip, stage 2; L89.156 Pressure-induced deep tissue damage of sacral region
CPT/HCPCS: 36410; 00123; 36415; 74177; 80048; 80053; 82533; 83690; 84145; 85027; 85652; 86141; 87040; 87637; 93005; 96365; 96366; 96375; 97110; 97116; 97163; 97530; 99291; 71260; 76870; 80202; 81003; 83605; 83735; 84484; 85025; 85610; 86140; 93010; 99223; 99232; 99233; 99239; J0131; J1171; J1720; J2270; J2543; J3010; J3372; J3490

== ENCOUNTER 2025-01-13 21:28 | Inpatient (IN) | payer MEDICAID, SELFPAY ==
[2025-01-13] VITALS (13 sets, daily range): BP systolic 132–137; BP diastolic 67–94; PULSE 57–112; RESP 16–22; TEMP 36.8–36.9; O2SAT 65–100
--- NOTE | 2025-01-13 21:30 | RT.EKG_ITS ---
APPROVED REPORT Exam: Resting ECG Reason for Exam: dizzy Patient Location: E HR:108 bpm ECG Measurements Heart Rate 108 AXIS NJ 113 P 76 QRSd 101 QRS 81 QT 301 T -81 QTc 404 Conclusion Sinus tachycardia [address] changes no stemi
--- NOTE | 2025-01-13 22:11 | HPE_ITS ---
Date of service: 01/13/25 Time of Service: 22:11 Assessment and Plan Assessment and plan (1) Intractable pain: Start date: 01/13/25 Status: Acute Assessment and plan: This is a 64-year-old gentleman who has advanced metastatic renal cell carcinoma of the anus who is not on treatment other than palliative care. 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 He is approaching end-of-life and is a DNR/DNI with palliative care consultation in the past but he does not understand the concept of hospice and location where he could best be cared for at the end of his life. He does not want aggressive resuscitation but also does not agree to appropriate supervision and pain management in outpatient situation. He will be admitted for pain management and review for long-term end-of-life care with hospice consultation when available. (2) Hypercalcemia: Start date: 01/13/25 Status: Acute Assessment and plan: Patient does have extensive bony metastases and is dry. IV hydration and follow-up labs. He is hypotensive but is urinating appropriately. His order perfusion is decreased but he does not want to be on vasopressors. (3) Hypokalemia: Start date: 01/13/25 Status: Acute Assessment and plan: Replace and follow-up lab. (4) Primary cancer of anal canal: Status: Chronic Assessment and plan: Stage IV with advanced disease and intractable pain. Patient needs to consider hospice and care in a facility for end-of-life care and comfort. He is a DNR/DNI. (5) Osteomyelitis, pelvis: Status: Chronic Assessment and plan: Continue doxycycline though this most likely will not clear his infection. The WBC is slightly elevated. His has no fever but is hypotensive. IV fluid resuscitation but no vasopressors at this time. He may be becoming septic which may bring on the end of life. Comfort measures. (6) Acute DVT (deep venous thrombosis): Status: Chronic Assessment and plan: Continue Eliquis for now. (7) COPD (chronic obstructive pulmonary disease): Status: Chronic Assessment and plan: Nebulizer treatments as needed. Patient does continue to smoke tobacco but less then a daily basis. (8) Smoker: Status: Chronic Assessment and plan: Nicotine patch for comfort. (9) Hypothyroidism (acquired): Status: Chronic Assessment and plan: Synthroid supplement without change with patient in control and scheduled environment. Long-term processes needs with repeat labs once patient is on medications for at least a week. History of Present Illness History of Present Illness Chief Complaint: Uncontrolled pain at home with inability to walk. Narrative: This is a 64-year-old male patient who has squamous cell carcinoma of the anus with local progression and distant metastases to the bone having chronic vasculitis of the pelvis and local invasion with increasing pain. He states that he cannot walk, with any movement of his legs exacerbating his pain in his anus and pelvic region. It also is invading his upper posterior thighs. He has been eating and drinking at home but is weak and cannot stand and is losing weight. He denies any nausea or vomiting. He is by himself and takes his meds with confusion as to which pill bottle contains which meds. He does have fentanyl patches on 100 mcg each wearing 2 patches every 72 hours. He also is on oxycodone ER 80 mg with 15 to 30 mg as needed every 3 hours. He is constipated. He does have a colostomy bag diverting the stool is often become detached. He has no family health and minimal assistance as stated. He is a DNR/DNI but is not interested in hospice at this time and in denial as to progression of his disease and ability to take care of himself. He cannot perform his independent ADL activity at this time. He has seen palliative care in the past. In the ED he was evaluated and was found to have continued marked elevation of WBC but now elevation of his calcium which is new and not unexpected with his dehydration with elevated creatinine and bony metastases. He is chronically on doxycycline. His TSH is markedly elevated indicating his noncompliance with his levothyroxine. He was screened for influenza/COVID/RSV and was negative. He has had no fever. He is in the ED because of family finding him in bed unable to take care of himself and and intractable pain despite high-dose narcotics long-acting and short acting. Review of Systems Narrative: 13 point review of systems otherwise unrevealing or stable. PFSH All Active Problems Hypokalemia (Acute) Hypercalcemia (Acute) Deficient knowledge of ostomy care (Acute) Dehydration (Acute) Tachycardia (Acute) Hypothyroidism (acquired) (Chronic) Intractable pain (Acute) Palliative care encounter (Acute) Pain from bone metastases (Acute) DNR (do not resuscitate) (Acute) 12/19/2024 COLST: DNR/DNR + transfer and +treat, +abx and + IV fluids. 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 Bone mets, local metastases. 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 (Acute) Housing insecurity (Acute) Food insecurity (Acute) 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 COPD (chronic obstructive pulmonary disease) (Chronic) Hypoalbuminemia due to protein-calorie malnutrition (Acute) Microcytic anemia (Acute) Smoker (Chronic) Medical History Status post radiation therapy ETOH abuse Resolved February 2023 Family History Other Cancer Social History Smoking/Tobacco Use Status: Current every day Tobacco Type: cigarettes Smoking risk assessment performed?: Yes Alcohol Intake: former Drug use: Rarely Substance use type: marijuana Housing: apartment Do you feel safe at home: Yes Do you feel safe in your relationship?: Yes Meds Allergies and Home Medications Allergies Allergy/AdvReac Type Severity Reaction Status Date / Time No Known Allergies Allergy Verified 01/13/25 21:39 Home Medications ?Medication ?Instructions ?Recorded ?Confirmed ?Type sodium hypochlorite 0.5 % solution 473 ml topical DIRECTED #473 mL 02/18/24 01/13/25 Rx (Dakin's Solution) apixaban 5 mg tablet 5 mg PO BID DVT #60 tabs 03/09/24 01/13/25 Rx Lactobacillus acidophilus, 1 packet PO DAILY group home abx 04/18/24 01/13/25 Rx bulgaricus 100 million cell use #30 ea granules packet (Floranex) acetaminophen 325 mg tablet 1,000 mg (3.0769 x 325 mg) PO TID 04/18/24 01/13/25 Rx #300 tabs polyethylene glycol 3350 17 gram 17 g PO HS #325 ea 07/18/24 01/13/25 Rx oral powder packet lidocaine 5 % topical cream 1 applic topical TID PRN pain #120 09/12/24 01/13/25 Rx grams levothyroxine 100 mcg tablet 100 mcg PO DAILY 12/08/24 01/13/25 History doxycycline hyclate 100 mg capsule 100 mg PO BID #60 caps 12/22/24 01/13/25 Rx midodrine 2.5 mg tablet 10 mg (4 x 2.5 mg) PO TID #90 tabs 12/22/24 01/13/25 Rx fentanyl 100 mcg/hr transdermal 2 patch transdermal Q48H pain 30 12/26/24 01/13/25 Rx patch days #30 ea lidocaine HCl 2 % mucosal jelly in 1 applic topical QD-TID PRN pain 12/26/24 01/13/25 Rx applicator (Glydo) #500 mL oxycodone 80 mg tablet,crush 80 mg PO .q8 Cancer Pain 30 days 12/26/24 01/13/25 Rx resistant,extended release 12 hr #90 tabs (OxyContin) oxycodone 15 mg tablet See Rx Instructions PO .q 3 h PRN 01/09/25 01/13/25 Rx pain #120 tabs Exam Narrative Exam Narrative: General: Patient appears older than stated age and chronically ill, cachectic, flattened affect with slow speech and dry mouth. He is alert and oriented at least to person and place. HEENT: Normocephalic, eyes with pupils equal and reactive to light symmetrically, extraocular movement intact and sclera anicteric. Oropharynx with dry mucosa and poor dentition with discolored and mall shape and teeth as well as missing teeth with gingival inflammation. Neck: Supple without JVD. Back: Kyphotic without CVA tenderness. Heart: Regular rate and rhythm with no murmurs gallops appreciated. Distant heart sounds. Lungs: Aeration with no focalizing rales or rhonchi. No expiratory wheeze. Poor inspiratory effort. Chest: Sunken intercostal skin with patient being very cachectic. Abdomen: Scaphoid contour, soft and nontender to palpation no palpable hepatosplenomegaly. Positive VAC in the mid abdomen draining brown, soft stool. Bowel sounds are positive decreased in all quadrants. Extremities: Without clubbing, cyanosis or grossly pitting edema. Diffusely wasted muscles on extremities but no joint swelling. Any movement of the lower extremities exacerbates his pelvic and sacral pain. Peripheral pulses are thready but present with fair cap refill and no mottling. Skin: Pale, cool to the touch and dry. Rough texture. Decreased turgor. Large fungating ulcerated squamous cell carcinoma lesion over his sacrum and buttocks area not examined with patient to uncomfortable to turn over. Neuro: Cranial nerves II through XII gross intact, no focal motor deficits or tremor. Psych: Flattened affect with depressed mood. Patient is obviously in pain. No abnormal thought processes. Remote and recent memory grossly intact with patient having sedation from his narcotics with some confusion when discussing medications especially when identifying bottles to the EMS. Results Labs 01/14/25 04:45 01/14/25 04:45 Last Vital Signs Temp 36.9 C 01/13/25 21:32 Pulse 112 H 01/13/25 21:32 Resp 22 01/13/25 21:32 BP 132/67 01/13/25 21:32 Pulse Ox 100 01/13/25 21:32 Time Spent Time spent with Patient: >75 minutes Time was spent: preparing to see the patient(eg.review tests), obtaining and/or reviewing separately otained hiistory, ordering medications,tests, procedures, indepentently interpreting results, counseling the patient and care coordination
[2025-01-13] MEDS: Normal Saline 1,000 ML 1000 ML IV ×2 (22:22→23:17)
[2025-01-13] MEDS: MORPHine 10 MG/ML VIAL 6 MG IVP (22:22)
--- NOTE | 2025-01-13 22:39 | ED.GENADUL_ITS ---
Discharge Plan Disposition Patient Disposition: Admit to [facility] Condition: Deteriorating Discharge Details Chief Complaint: AMS/LOC Clinical Impression: Cancer cachexia, Food insecurity, Housing insecurity, Cancer related pain, Anal squamous cell carcinoma, Tachycardia, Dehydration, Deficient knowledge of ostomy care Primary Care Provider: Sha Ramos ED Provider: Marquita Campos Home Meds and New Rx's Prescriptions: No Action acetaminophen 325 mg tablet 1,000 mg PO TID Qty: 300 12RF Lactobacillus acidoph-L.bulgar [Floranex] 100 million cell granules in packet 1 packet PO DAILY Qty: 30 6RF polyethylene glycol 3350 17 gram powder in packet 17 g PO HS Qty: 325 12RF lidocaine 5 % cream 1 applic topical TID PRN (Reason: pain) Qty: 120 12RF oxycodone 15 mg tablet See Rx Instructions PO .q 3 h MDD 8 pills PRN (Reason: pain) Qty: 120 0RF Rx Instructions: 1-2 pills (15-30 mg) orally Q 3 H PRN; apixaban 5 mg tablet 5 mg PO BID Qty: 60 12RF Rx Instructions: Start 5/2 fentanyl 100 mcg/hr patch 72 hour 2 patch transdermal Q48H MDD 200 mcg 30 Days Qty: 30 0RF oxycodone [OxyContin] 80 mg tablet,oral only,ext.rel.12 hr 80 mg PO .q8 MDD 3 pills 30 Days Qty: 90 0RF Rx Instructions: Insurance insists on Oxycontin 80 mg pills. If totally not available, we need documentation; then Call us please to send in 40 mg pills. They will only cover another 20 days' of 40mg pills. Then we would need a new PA if 80 mg pills not a vailable. If 80 mg pills ARE available, need to review with pt new SIG> lidocaine HCl [Glydo] 2 % jelly in applicator 1 applic topical QD-TID PRN (Reason: pain) Qty: 500 12RF levothyroxine 100 mcg tablet 100 mcg PO DAILY Patient Comments: TAKE ONE TABLET BY MOUTH EVERY DAY doxycycline hyclate 100 mg Capsule 100 mg PO BID Qty: 60 1RF midodrine 2.5 mg Tablet 10 mg PO TID Qty: 90 1RF Dakin's Solution 0.5 % Solution 473 ml topical DIRECTED Qty: 473 12RF Rx Instructions: daily dressing changes HPI General Date/Time Provider Initiated Documentation: 01/13/25 21:42 . Limitations to Documentation: no limitations . Information obtained by: patient, EMS and old records reviewed . HPI Narrative: 64-year-old gentleman with past medical history of metastatic rectal carcinoma, pelvic osteomyelitis, ostomy, multiple social issues and poor pain control followed by palliative care presents for evaluation by EMS for altered mental status. Apparently 911 was called by family members who state that the patient has had increasing confusion. EMS found the patient to be alert. He was not able to clearly state what medications he has been taking or read the labels on his medication bottles. The patient reports severe pain in his backside. He states that he is not sure if he has been taking his oral pain medication but he has [address]. He states that these are not covering his pain. He is not able to tell me if he has been eating and drinking. There was an issue with his ostomy bag and EMS found that on their arrival it had burst and there was feces everywhere. Related Data Home Medications ?Medication ?Instructions ?Recorded ?Confirmed sodium hypochlorite 0.5 % solution 473 ml topical DIRECTED #473 mL 02/18/24 01/13/25 (Dakin's Solution) apixaban 5 mg tablet 5 mg PO BID DVT #60 tabs 03/09/24 01/13/25 Lactobacillus acidophilus, 1 packet PO DAILY jail abx 04/18/24 01/13/25 bulgaricus 100 million cell use #30 ea granules packet (Floranex) acetaminophen 325 mg tablet 1,000 mg (3.0769 x 325 mg) PO TID 04/18/24 01/13/25 #300 tabs polyethylene glycol 3350 17 gram 17 g PO HS #325 ea 07/18/24 01/13/25 oral powder packet lidocaine 5 % topical cream 1 applic topical TID PRN pain #120 09/12/24 01/13/25 grams levothyroxine 100 mcg tablet 100 mcg PO DAILY 12/08/24 01/13/25 doxycycline hyclate 100 mg capsule 100 mg PO BID #60 caps 12/22/24 01/13/25 midodrine 2.5 mg tablet 10 mg (4 x 2.5 mg) PO TID #90 tabs 12/22/24 01/13/25 fentanyl 100 mcg/hr transdermal 2 patch transdermal Q48H pain 30 12/26/24 01/13/25 patch days #30 ea lidocaine HCl 2 % mucosal jelly in 1 applic topical QD-TID PRN pain 12/26/24 01/13/25 applicator (Glydo) #500 mL oxycodone 80 mg tablet,crush 80 mg PO .q8 Cancer Pain 30 days 12/26/24 01/13/25 resistant,extended release 12 hr #90 tabs (OxyContin) oxycodone 15 mg tablet See Rx Instructions PO .q 3 h PRN 01/09/25 01/13/25 pain #120 tabs Previous Rx's ?Medication ?Instructions ?Recorded sodium hypochlorite 0.5 % solution 473 ml topical DIRECTED #473 mL 02/18/24 (Dakin's Solution) apixaban 5 mg tablet 5 mg PO BID DVT #60 tabs 03/09/24 Lactobacillus acidophilus, 1 packet PO DAILY jail abx 04/18/24 bulgaricus 100 million cell use #30 ea granules packet (Floranex) acetaminophen 325 mg tablet 1,000 mg (3.0769 x 325 mg) PO TID 04/18/24 #300 tabs polyethylene glycol 3350 17 gram 17 g PO HS #325 ea 07/18/24 oral powder packet lidocaine 5 % topical cream 1 applic topical TID PRN pain #120 09/12/24 grams doxycycline hyclate 100 mg capsule 100 mg PO BID #60 caps 12/22/24 midodrine 2.5 mg tablet 10 mg (4 x 2.5 mg) PO TID #90 tabs 12/22/24 fentanyl 100 mcg/hr transdermal 2 patch transdermal Q48H pain 30 12/26/24 patch days #30 ea lidocaine HCl 2 % mucosal jelly in 1 applic topical QD-TID PRN pain 12/26/24 applicator (Glydo) #500 mL oxycodone 80 mg tablet,crush 80 mg PO .q8 Cancer Pain 30 days 12/26/24 resistant,extended release 12 hr #90 tabs (OxyContin) oxycodone 15 mg tablet See Rx Instructions PO .q 3 h PRN 01/09/25 pain #120 tabs Allergies Allergy/AdvReac Type Severity Reaction Status Date / Time No Known Allergies Allergy Verified 01/13/25 21:39 General Stated Complaint: AMS/LOC WENDY: 3 Exam Narrative Exam Narrative: Review of Systems: All systems reviewed & are unremarkable except as noted in HPI and below Profoundly cachectic and ill-appearing Sunken facial features Dry mucous membranes Tachycardia Unlabored respiratory effort, no hypoxia Ostomy in place Extremities cool to touch, very thin Extensive perineal wound gaping with incredibly foul-smelling drainage There is first-degree bruising and skin breakdown noted along the spinal processes of the midline back there is bruising noted to bilateral calfs with skin breakdown there and on the heels as well Course Vital Signs Vital signs: Vital Signs Temperature 36.9 C 01/13/25 21:32 Pulse 112 H 01/13/25 21:32 Respiratory Rate 22 01/13/25 21:32 Blood Pressure 132/67 01/13/25 21:32 Pulse Oximetry 100 01/13/25 21:32 Temperature 36.9 C 01/13/25 21:32 Pulse 112 H 01/13/25 21:32 Respiratory Rate 16 01/13/25 22:09 Respiratory Effort Normal 01/13/25 22:09 Respiratory Depth Normal 01/13/25 22:09 Respiratory Pattern Normal 01/13/25 22:09 Blood Pressure 132/67 01/13/25 21:32 Pulse Oximetry 100 01/13/25 21:32 Lab/Test Results Lab/Test Results: Laboratory Tests Range/Units 01/13/25 22:20 WBC Cancelled RBC Cancelled Hgb Cancelled Hct Cancelled MCV Cancelled MCH Cancelled MCHC Cancelled RDW Cancelled Plt Count Cancelled MPV Cancelled Immature Gran % Cancelled Neutrophils % Cancelled Band Neutrophils % Cancelled Lymphocytes % Cancelled Atypical Lymphs % Cancelled Monocytes % Cancelled Eosinophils % Cancelled Basophils % Cancelled Metamyelocytes % Cancelled Myelocytes % Cancelled Promyelocytes % Cancelled Other Cells % Cancelled Nucleated RBC % Cancelled Absolute Neutrophils Cancelled Absolute Lymphocytes Cancelled Absolute Monocytes Cancelled Absolute Eosinophils Cancelled Absolute Basophils Cancelled RBC Morphology Cancelled Polychromasia Cancelled Hypochromasia Cancelled Poikilocytosis Cancelled Basophilic Stippling Cancelled Anisocytosis Cancelled Microcytosis Cancelled Macrocytosis Cancelled Spherocytes Cancelled Tear Drop Cells Cancelled Ovalocytes Cancelled Stomatocytes Cancelled [place] Bodies Cancelled [place] Cells/Echinocytes Cancelled Acanthocytes (Spur) Cancelled Schistocytes Cancelled Medical Decision Making Emergent evaluation of altered mental status. At this time I find the patient to be alert and oriented and I do not find any signs of acute altered mental status. He is on a fair amount of opiate narcotics which could contribute to fluctuations in his mental status. The patient is overall very poor appearing. I have reviewed his medical record and his most recent palliative care visit where it was recommended that the patient come to the emergency department for hospitalization for improved pain management, wound care and general care. At t his time it does not seem that the patient is able to change his ostomy bag perform any wound care whatsoever or even get out of bed independently. His pain does seem to be poorly controlled, the paramedics report that the patient had recently been kicked out of his house and he was living in a temporary alf type situation where there was limited he and difficult access secondary to ice in the driveway that no one has been clearing. At this time given the patient's significant debility, need for pain control, IV hydration, wound care, ostomy management, I see no other option but to admit the patient to the hospital with a likely goal of inpatient hospice care for him. Although patient was previously not amenable to this during his discussions with Dr. Loyola, he does seem to be amenable at this time. Have discussed with the hospitalist for admission. Quality:SDOH Health Related Social Needs: Health related social needs food insecurity (Z59.41), material hardship(utilities) (Z59.12), transportation insecurity (Z59.82), feeling lonely/isolated (Z60.8), education (Z55.6) Health related social needs details patient unable to participate at this time in page 2 assessment PFSH All Active Problems Deficient knowledge of ostomy care (Acute) Dehydration (Acute) Tachycardia (Acute) Hypothyroidism (acquired) (Chronic) Intractable pain (Acute) Palliative care encounter (Acute) Pain from bone metastases (Acute) DNR (do not resuscitate) (Acute) 12/19/2024 COLST: DNR/DNR + transfer and +treat, +abx and + IV fluids. 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 Bone mets, local metastases. 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) Housing insecurity (Acute) Food insecurity (Acute) 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 COPD (chronic obstructive pulmonary disease) (Chronic) Hypoalbuminemia due to protein-calorie malnutrition (Acute) Microcytic anemia (Acute) Smoker (Chronic) Medical History Status post radiation therapy ETOH abuse Resolved February 2023 Family History Other Cancer Social History Smoking/Tobacco Use Status: Current every day Tobacco Type: cigarettes Smoking risk assessment performed?: Yes Alcohol Intake: former Drug use: Rarely Substance use type: marijuana Housing: apartment Do you feel safe at home: Yes Do you feel safe in your relationship?: Yes
[2025-01-13 23:21] LABS: Abs Immature Grans 0.14 10^3/uL (0.0-0.06); HCT 34.3 % (40.0-50.0); HGB 11.2 g/dL (13.5-17.5); MCH 28.4 pg (27.0-33.0); MCHC 32.7 % (32.0-36.0); MCV 87 fL (80-95); RBC 3.94 10^6/uL (4.36-5.78); RDW 15.6 % (11.8-14.1); RDW-SD 49.3 fL; WBC 20.75 10^3/uL (4.4-10.8)
[2025-01-13 23:29] LABS: Absolute Lymphocyte Count 0.42 10^3/uL (1.2-3.4); Absolute Monocyte Count 0.62 10^3/uL (0.1-0.8); Absolute Neutrophil Count 19.51 10^3/uL (1.2-6.7)
[2025-01-13 23:30] LABS: Absolute Eosinophil Count 0.21 10^3/uL (0.0-0.7); Anion Gap 7.2 mmol/L (3-11); BUN 18 mg/dL (7-18); CO2 31.8 mmol/L (21.0-32.0); CREATININE 1.1 mg/dL (0.70-1.30); Chloride 100 mmol/L (98-107); Diff Comment Manual Differential; Estimated GFR 75.43 (mL/min/1.73m2); Glucose 92 mg/dL (74-106); Potassium 3.4 mmol/L (3.5-5.1); RBC Morphology Normal; Sodium 139 mmol/L (136-145)
[2025-01-13 23:35] LABS: Calcium 12.6 mg/dL (8.5-10.1)
[2025-01-14] VITALS (115 sets, daily range): BP systolic 51–92; BP diastolic 22–72; PULSE 51–214; RESP 12–20; TEMP 36.7–37.5; O2SAT 96–100
[2025-01-14 00:01] LABS: COVID-19 PCR Negative (Negative); Influenza A PCR Negative (Negative); Influenza B PCR Negative (Negative); RSV PCR Negative (Negative)
[2025-01-14 00:06] LABS: Source Nasopharynx
[2025-01-14 00:50] LABS: Magnesium 1.7 mg/dL; TSH (W/Ref FT4) 11.21 uIU/mL (0.36-3.74)
[2025-01-14] MEDS: Normal Saline 1,000 ML 150 ML IV ×2 (00:54→20:00)
[2025-01-14] MEDS: POTASSIUM CHLORIDE 20 MEQ/100 ML BAG 50 MEQ IV_INF (00:56)
[2025-01-14] MEDS: Midodrine 2.5 MG TAB 10 MG PO ×4 (01:14→18:18)
[2025-01-14] MEDS: Lidocaine 2% Jelly 11 ML SYR (03:00)
--- NOTE | 2025-01-14 03:00 | NUR.NOTE ---
Dr. Flower paged for Blood Pressures remaining with systolics in the 70s and 80s after 2 liters of fluid. This proposal manager writer questioned the rate of IV fluids in regards to it not being enough to support BP. Provider stated it should be enough and that treatment would not be aggressive. This proposal manager writer inquired about when to call in regards to Blood Pressures. Provider was unable to give objective BP goals and insisted this proposal manager writer to assess his mentation instead. No new orders given
[2025-01-14] MEDS: Milk of Magnesia 30 ML CUP PO (03:30)
[2025-01-14] MEDS: MORPHine 10 MG/ML VIAL 6 MG IVP ×4 (03:31→14:56)
--- NOTE | 2025-01-14 04:08 | NUR.NOTE ---
Dr. Flower paged for BP's continuing to trend down into the 60s and 50s systolic. with MAP's in the 30s and 40s. aware and offers no new orders at this time.
--- NOTE | 2025-01-14 05:11 | NUR.NOTE ---
Went in to assess pt. Pt denies pain, denies confusion, however is more fatigued than prior assessment. pulses are thready, despite continuous running fluids. aware
--- NOTE | 2025-01-14 05:17 | NUR.NOTE ---
paged Dr. Flower for continued hypotension despite fluids running continuously. provider states we are getting closer to day shift, they can call in family or palliative today. MD aware of unstable vital signs and changes in pt's mentation no new orders given.
[2025-01-14 05:26] LABS: HCT 31.9 % (40.0-50.0); HGB 10.2 g/dL (13.5-17.5); MCH 27.9 pg (27.0-33.0); MCV 87 fL (80-95); MPV 9.8 fL (8.0-11.0); Platelet Count 322 10^3/uL (130-400); RBC 3.66 10^6/uL (4.36-5.78); RDW 15.7 % (11.8-14.1); WBC 22.97 10^3/uL (4.4-10.8)
[2025-01-14 05:31] LABS: ALT 16 U/L (16-63); AST 45 U/L (15-37); Albumin 1.8 g/dL (3.4-5.0); Alkaline Phosphatase 136 U/L (46-116); Anion Gap 2.2 mmol/L (3-11); BUN 17 mg/dL (7-18); Bilirubin, Total 0.6 mg/dL (0.2-1.0); CO2 33.8 mmol/L (21.0-32.0); Chloride 104 mmol/L (98-107); Estimated GFR 84.57 (mL/min/1.73m2); Glucose 97 mg/dL (74-106); Magnesium 1.7 mg/dL; Potassium 3.8 mmol/L (3.5-5.1); Sodium 140 mmol/L (136-145); Total Protein 5.4 g/dL (6.4-8.2)
[2025-01-14 05:34] LABS: Calcium 11.7 mg/dL (8.5-10.1)
[2025-01-14 06:25] LABS: INR 1.4 (0.9-1.1); Prothrombin Time 13.4 sec (9.1-11.1)
--- NOTE | 2025-01-14 08:25 | PDOC.CMIN ---
Date of service: 01/14/25 Time of Service: 08:25 Care Management Initial Assmt Initial Assessment Reason for Hospitalization: Pain, AMS, Functional Status/Living Situation Patient Presentation: Ronaldo is being transferred to the ICU, Condition is deteriorating. Per report Anant lives alone in one apartment in a 2 family farmhouse and his landlord's daughter lives in the other part. 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 Anant has 2 daughters but he has not had contact with them for 2 years. He stated that they gave up on him as a Dad and refuse to have contact. When asked who his support system included, he indicated that his landlord is like a brother and that his brother and [id number]-nhr are very supportive as well as many close friends. Anant has home health nursing services twice a week for dressing changes. He informed that he would like it increased to 3 times a week, preferably to include a weekend visit. He is mostly independent with ADL. 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: N 02/23/23 08:40 Date Asked 01/13/25 01/13/25 21:36 AD Date Reviewed COLST On File at [facility] Yes 01/13/25 21:36 COLST Date Scanned Code Status Resuscitation Status DNR/DNI Portal Pt does not currently have a portal and education provided: Yes Insurance Coverage/Financial Issues Insurance: Medicaid Care Team Visit Care Team Role Provider Type Candi Gonzales NP NURSE PRACTITIONER Sha Ramos Primary Care Provider NON-[facility] STAFF PHYSICIAN Marquita Campos MD Emergency Provider [facility] STAFF PHYSICIAN Akhil Flower Admit Provider NON-[facility] STAFF PHYSICIAN Attending Provider Discharge Potential Discharge Needs: PCP F/U Appt and Other (Palliative) Anticipated Barriers to Discharge: Medical Status Patient/Family Education Needs: Review discharge instructions, discuss Ask Me Three Transportation: Other (Dependent on mobility) Plan: Being admitted to the ICU for pain control. He has pressure ulcers, an air bed will be ordered for pressure relief. Will need a Palliative consult for end of life planning. He has [facility] RN for wound care. CM will follow and continue to support discharge planning needs. Social Determinants of Health Screening Social Determinants of Health last assessed: 01/14/25 Will the Patient Participate in the Screening?: Yes Do you worry about having a steady place to live?: no Problems where you live: no known problems In the past 12 months, have you had to go without electric, gas, oil or water in your home?: yes Have you or anyone in your house had to go without enough food to eat?: yes 1. Within the past 12 months, we worried whether our food would run out before we got money to buy more.: Don't know/refused 2. Within the past 12 months, the food we bought just didn't last and we didn't have money to get more.: Don't know/refused Referred to:: Not Applicable Has lack of transportation kept you from medical appointments or from doing things needed for daily living?: yes Has anyone in your life made you feel unsafe or unsupported?: no How hard is it for you to pay for the very basics like food, housing, medical care, and heating? Would you say it is:: Not hard at all Do you want help finding or keeping work or a job?: I do not need or want help If for any reason you need help with day-to-day activities such as bathing, preparing meals, shopping, managing finances, etc., do you get the help you need?: I don?t need any help How often do you feel lonely or isolated from those around you?: Sometimes Do you speak a language other than Colombian at home?: Yes Does the patient want assistance with any of the above?: Yes Health Related Social Needs Health related social needs: food insecurity (Z59.41), transportation insecurity (Z59.82), material hardship(utilities) (Z59.12), feeling lonely/isolated (Z60.8) and education (Z55.6) PFS All Active Problems Discharge planning issues (Acute) Hypokalemia (Acute) Hypercalcemia (Acute) Deficient knowledge of ostomy care (Acute) Dehydration (Acute) Tachycardia (Acute) Hypothyroidism (acquired) (Chronic) Intractable pain (Acute) Palliative care encounter (Acute) Pain from bone metastases (Acute) DNR (do not resuscitate) (Acute) 12/19/2024 COLST: DNR/DNR + transfer and +treat, +abx and + IV fluids. 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 Bone mets, local metastases. 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) Housing insecurity (Acute) Food insecurity (Acute) 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 COPD (chronic obstructive pulmonary disease) (Chronic) Hypoalbuminemia due to protein-calorie malnutrition (Acute) Microcytic anemia (Acute) Smoker (Chronic) Medical History Status post radiation therapy ETOH abuse Resolved February 2023 Family History Other Cancer Social History Smoking/Tobacco Use Status: Current every day Tobacco Type: cigarettes Smoking risk assessment performed?: Yes Alcohol Intake: former Drug use: Rarely Substance use type: marijuana Housing: apartment Do you feel safe at home: Yes Do you feel safe in your relationship?: Yes
[2025-01-14] MEDS: Apixaban 5 MG TAB PO ×2 (09:17→19:53)
[2025-01-14] MEDS: fentaNYL 100 MCG PATCH 200 MCG TD (09:17)
--- NOTE | 2025-01-14 09:39 | PGE_ITS ---
Date of Service Date of service: 01/14/25 Time of Service: 09:39 Assessment and Plan Assessment and plan (1) Intractable pain: Status: Acute Assessment and plan: continue pain management and adjust as needed. (2) Hypercalcemia: Status: Acute Assessment and plan: Patient does have extensive bony metastases and was dehydrated on presentation. Calcium improving after IV hydration overnight. continue to follow (3) Hypokalemia: Status: Acute Assessment and plan: Replace and follow-up lab. (4) Primary cancer of anal canal: Status: Chronic Assessment and plan: Stage IV with advanced disease and intractable pain. Palliative and hospice referral for possible hospice in a facility for end-of-life care and comfort. He is a DNR/DNI. (5) Osteomyelitis, pelvis: Status: Chronic Assessment and plan: Continue doxycycline though this most likely will not clear his infection. Continue IV fluid resuscitation but declined vasopressors on admission Sepsis may bring on the end of life (6) Acute DVT (deep venous thrombosis): Status: Chronic Assessment and plan: Continue Eliquis for now. (7) COPD (chronic obstructive pulmonary disease): Status: Chronic Assessment and plan: Nebulizer treatments as needed. Patient does continue to smoke tobacco but less then a daily basis. (8) Smoker: Status: Chronic Assessment and plan: Nicotine patch for comfort. (9) Hypothyroidism (acquired): Status: Chronic Assessment and plan: Synthroid supplement without change with patient in control and scheduled e nvironment. (10) Discharge planning issues: Status: Acute Assessment and plan: case management following is not managing at home palliative care/hospice consult unlikely will be able to safely return home discussed with DR Lopes Exam Narrative Exam Narrative: cachectic male, terminally ill appearing poor dentition with decay, build up oral mucosa dry, awake and alert responding appropriately, foul smell from wounds, resp even and unlabored, skin ashen warm and dry. wounds, see nursing documentation, purulent, no peripheral edema Objective Last Vital Signs Temp 36.8 C 01/13/25 23:58 Pulse 69 01/14/25 08:02 Resp 16 01/13/25 23:58 BP 51/28 L 01/14/25 08:01 Pulse Ox 100 01/14/25 08:02 Laboratory Results - last 24 hr 01/13/25 01/13/25 01/13/25 22:20 23:13 23:20 WBC Cancelled 20.75 H RBC Cancelled 3.94 L Hgb Cancelled 11.2 L Hct Cancelled 34.3 L MCV Cancelled 87 MCH Cancelled 28.4 MCHC Cancelled 32.7 RDW Cancelled 15.6 H Plt Count Cancelled MPV Cancelled Immature Gran % Cancelled 0.0 Neutrophils % Cancelled 94.0 Band Neutrophils % Cancelled Lymphocytes % Cancelled 2.0 Atypical Lymphs % Cancelled Monocytes % Cancelled 3.0 Eosinophils % Cancelled 1.0 Basophils % Cancelled 0.0 Metamyelocytes % Cancelled Myelocytes % Cancelled Promyelocytes % Cancelled Other Cells % Cancelled Nucleated RBC % Cancelled 0.0 Absolute Neutrophils Cancelled 19.51 H Absolute Lymphocytes Cancelled 0.42 L Absolute Monocytes Cancelled 0.62 Absolute Eosinophils Cancelled 0.21 Absolute Basophils Cancelled 0.00 RBC Morphology Cancelled Normal Polychromasia Cancelled Hypochromasia Cancelled Poikilocytosis Cancelled Basophilic Stippling Cancelled Anisocytosis Cancelled Microcytosis Cancelled Macrocytosis Cancelled Spherocytes Cancelled Tear Drop Cells Cancelled Ovalocytes Cancelled Stomatocytes Cancelled Silva[place] Bodies Cancelled [place] Cells/Echinocytes Cancelled Acanthocytes (Spur) Cancelled Schistocytes Cancelled PT INR Sodium 139 Potassium 3.4 L Chloride 100 Carbon Dioxide 31.8 Anion Gap 7.2 BUN 18 Creatinine 1.1 Est GFR (CKD-EPI 2020) 75.43 Glucose 92 Calcium 12.6 H* Magnesium 1.7 Total Bilirubin AST ALT Alkaline Phosphatase Total Protein Albumin TSH 11.21 H COVID-19 Source Nasopharynx SARS-CoV-2 (PCR) Negative Influenza Type A (PCR) Negative Influenza Type B (PCR) Negative RSV (PCR) Negative 01/14/25 01/14/25 04:45 06:10 WBC 22.97 H RBC 3.66 L Hgb 10.2 L Hct 31.9 L MCV 87 MCH 27.9 MCHC 32.0 RDW 15.7 H Plt Count 322 MPV 9.8 Immature Gran % Neutrophils % Band Neutrophils % Lymphocytes % Atypical Lymphs % Monocytes % Eosinophils % Basophils % Metamyelocytes % Myelocytes % Promyelocytes % Other Cells % Nucleated RBC % Absolute Neutrophils Absolute Lymphocytes Absolute Monocytes Absolute Eosinophils Absolute Basophils RBC Morphology Polychromasia Hypochromasia Poikilocytosis Basophilic Stippling Anisocytosis Microcytosis Macrocytosis Spherocytes Tear Drop Cells Ovalocytes Stomatocytes [place] Bodies [place] Cells/Echinocytes Acanthocytes (Spur) Schistocytes PT 13.4 H INR 1.4 H Sodium 140 Potassium 3.8 Chloride 104 Carbon Dioxide 33.8 H Anion Gap 2.2 L BUN 17 Creatinine 1.0 Est GFR (CKD-EPI 2020) 84.57 Glucose 97 Calcium 11.7 H* Magnesium 1.7 Total Bilirubin 0.6 AST 45 H ALT 16 Alkaline Phosphatase 136 H Total Protein 5.4 L Albumin 1.8 L TSH COVID-19 Source SARS-CoV-2 (PCR) Influenza Type A (PCR) Influenza Type B (PCR) RSV (PCR) Time Spent with Patient Time Spent with Patient: 35-49 minutes Time was spent: preparing to see the patient(eg.review tests), obtaining and/or reviewing separately otained hiistory, ordering medications,tests, procedures and indepentently interpreting results
[2025-01-14] MEDS: Nicotine 21 MG/24 HR PATCH TD (10:47)
[2025-01-14] MEDS: oxyCODONE-CR 20 MG TABCR 80 MG PO ×2 (12:21→21:22)
[2025-01-14] MEDS: Acetaminophen 500 MG TAB 1000 MG PO ×2 (12:25→19:53)
[2025-01-14] MEDS: Lidocaine 2% Jelly 11 ML SYR MM (16:47)
[2025-01-14] MEDS: oxyCODONE 15 MG TAB PO (18:19)
[2025-01-14] MEDS: Doxycycline Hyclate 100 MG CAP PO (19:57)
[2025-01-14] MEDS: Normal Saline Flush 10 ML SYR IVP (19:58)
[2025-01-15] VITALS (38 sets, daily range): BP systolic 66–76; BP diastolic 34–39; PULSE 46–75; TEMP 36.5–36.8; O2SAT 99–100
[2025-01-15] MEDS: Normal Saline 1,000 ML 150 ML IV ×2 (02:24→19:11)
[2025-01-15] MEDS: Levothyroxine 100 MCG TAB PO (06:25)
[2025-01-15] MEDS: oxyCODONE-CR 20 MG TABCR 80 MG PO ×3 (06:26→23:38)
[2025-01-15 08:44] LABS: HCT 26.8 % (40.0-50.0); HGB 8.8 g/dL (13.5-17.5); MCH 28.7 pg (27.0-33.0); MCHC 32.8 % (32.0-36.0); MCV 87 fL (80-95); MPV 9.3 fL (8.0-11.0); Platelet Count 248 10^3/uL (130-400); RDW 15.9 % (11.8-14.1); RDW-SD 50.8 fL
[2025-01-15 09:10] LABS: ALT 18 U/L (16-63); AST 33 U/L (15-37); Albumin 1.5 g/dL (3.4-5.0); Alkaline Phosphatase 113 U/L (46-116); Anion Gap 3.6 mmol/L (3-11); BUN 16 mg/dL (7-18); Bilirubin, Total 0.3 mg/dL (0.2-1.0); CO2 29.4 mmol/L (21.0-32.0); CREATININE 0.8 mg/dL (0.70-1.30); Calcium 11.3 mg/dL (8.5-10.1); Chloride 110 mmol/L (98-107); Estimated GFR 99.44 (mL/min/1.73m2); Glucose 83 mg/dL (74-106); Magnesium 1.6 mg/dL; Potassium 3.4 mmol/L (3.5-5.1); Sodium 143 mmol/L (136-145); Total Protein 4.6 g/dL (6.4-8.2)
[2025-01-15 09:13] LABS: WBC 19.09 10^3/uL (4.4-10.8)
[2025-01-15 09:15] LABS: RBC 3.07 10^6/uL (4.36-5.78)
--- NOTE | 2025-01-15 09:15 | PDOC.CMPRO ---
Date of service: 01/15/25 Time of Service: 09:16 Care Management Progress Note Progress Note Text Progress Note Text: Anant was lying in bed when CM met with him. He was polite but not very talkative. When asked, Anant stated that his pain is fairly well controlled at this time. A Palliative Care follow up visit has been requested for Anant. He has been followed by Dr. Loyola and has a good relationship with her but she was not available today. Anant was offered the opportunity to meet with a different provider today or to wait until tomorrow. He chose to wait to see tomorrow. Clinically, Anant has continued to decline at home. He is no longer able to care for himself but has not yet made the decision to go on hospice or transition to comfort measures. Discharge Potential Discharge Needs: Other (may transition to comfort measures) Anticipated Barriers to Discharge: Medical Status Patient/Family Education Needs: Review discharge instructions, discuss Ask Me Three Transportation: Other (to be determined) Plan: Anant's discharge plan is unclear at this time. He has not done well at home and is no longer able to care for himself. He has been seen at home by Palliative Care and has had the support of his [id number] and home health team, but does not have a / caregiver. He may remain at [facility] for end of life care. CM will follow and continue to support Anant through this difficult period. Social Determinants of Health Screening Social Determinants of Health last assessed: 01/15/25 Will the Patient Participate in the Screening?: Unable to obtain Do you worry about having a steady place to live?: no Problems where you live: no known problems In the past 12 months, have you had to go without electric, gas, oil or water in your home?: yes Have you or anyone in your house had to go without enough food to eat?: yes 1. Within the past 12 months, we worried whether our food would run out before we got money to buy more.: Don't know/refused 2. Within the past 12 months, the food we bought just didn't last and we didn't have money to get more.: Don't know/refused Referred to:: Not Applicable Has lack of transportation kept you from medical appointments or from doing things needed for daily living?: yes Has anyone in your life made you feel unsafe or unsupported?: no How hard is it for you to pay for the very basics like food, housing, medical care, and heating? Would you say it is:: Not hard at all Do you want help finding or keeping work or a job?: I do not need or want help If for any reason you need help with day-to-day activities such as bathing, preparing meals, shopping, managing finances, etc., do you get the help you need?: I don?t need any help How often do you feel lonely or isolated from those around you?: Sometimes Do you speak a language other than [place] at home?: Yes Does the patient want assistance with any of the above?: Yes Health Related Social Needs Health related social needs: food insecurity (Z59.41), transportation insecurity (Z59.82), material hardship(utilities) (Z59.12), feeling lonely/isolated (Z60.8) and education (Z55.6)
[2025-01-15] MEDS: Midodrine 2.5 MG TAB 10 MG PO ×3 (10:02→21:33)
[2025-01-15] MEDS: Acetaminophen 500 MG TAB 1000 MG PO (10:02)
[2025-01-15] MEDS: Doxycycline Hyclate 100 MG CAP PO (10:02)
[2025-01-15] MEDS: Apixaban 5 MG TAB PO ×2 (10:03→21:33)
[2025-01-15] MEDS: Normal Saline Flush 10 ML SYR IVP ×3 (10:56→21:34)
[2025-01-15] MEDS: oxyCODONE 15 MG TAB PO ×2 (11:05→21:34)
[2025-01-15] MEDS: MORPHine 10 MG/ML VIAL 6 MG IVP ×2 (13:27→21:49)
--- NOTE | 2025-01-15 14:45 | PGE_ITS ---
Date of Service Date of service: 01/15/25 Time of Service: 14:45 Assessment and Plan Assessment and plan (1) Intractable pain: Status: Acute Assessment and plan: -continue fentanyl patch 200mcg Q48hrs, PO oxycontin 80mg Q8hr, PO oxycodone 15- 30mg Q3hr PRN and PRN IV morphine 6mg Q2hrs -Attempted to discuss patients worsening condition, but he was understandably withdrawn today. -Based on his current wishes, the patient is essentially a no escalation of care; he remains a DNR/DNI, declined pressors and central line on admission, but we are continuing current medications including but not limited to antibiotics, midodrine, and IV fluids -Plan to readdress Hospice and possible transition to [employer] status with patient again tomorrow 01/16 -Palliative Care consult now in place (2) Hypercalcemia: Status: Acute Assessment and plan: -Patient does have extensive bony metastases and was dehydrated on presentation. -Calcium improving after IV hydration overnight. (3) Hypokalemia: Status: Acute Assessment and plan: -Replace and follow-up lab. (4) Primary cancer of anal canal: Status: Chronic Assessment and plan: -Stage IV with advanced disease and intractable pain. -Palliative and hospice referral for possible hospice in a facility for end-of-life care and comfort. -He is a DNR/DNI. (5) Osteomyelitis, pelvis: Status: Chronic Assessment and plan: -Continue doxycycline though this most likely will not clear his infection. -Continue IV fluid resuscitation but declined vasopressors on admission (6) Acute DVT (deep venous thrombosis): Status: Chronic Assessment and plan: Continue Eliquis for now. (7) COPD (chronic obstructive pulmonary disease): Status: Chronic Assessment and plan: Nebulizer treatments as needed. Patient does continue to smoke tobacco but less then a daily basis. (8) Smoker: Status: Chronic Assessment and plan: Nicotine patch for comfort. (9) Hypothyroidism (acquired): Status: Chronic Assessment and plan: Synthroid supplement without change with patient in control and scheduled environment. (10) Discharge planning issues: Status: Acute Assessment and plan: case management following is not managing at home palliative care/hospice consult unlikely will be able to safely return home discussed with DR Lopes Subjective Subjective Interval history since last seen: Patient states that he is ok today and that his pain is at a tolerable 2-3/10. He is understandably withdrawn at this time, but does not have any additional complaints or concerns at this time. Exam Narrative Exam Narrative: Chronically ill severely cachectic appearing gentleman laying in bed, older than stated age, ANO x 4, heart regular rhythm, lungs clear to auscultation bilaterally, abdomen soft, nontender, nondistended, please review nurses notes for assessment of wounds Objective Last Vital Signs Temp 98.2 F 01/15/25 14:36 Pulse 65 01/15/25 07:45 Resp 12 01/14/25 22:06 BP 66/38 L 01/15/25 04:01 Pulse Ox 100 01/15/25 07:45 Laboratory Results - last 24 hr 01/15/25 08:40 WBC 19.09 H RBC 3.07 L Hgb 8.8 L Hct 26.8 L MCV 87 MCH 28.7 MCHC 32.8 RDW 15.9 H Plt Count 248 MPV 9.3 Sodium 143 Potassium 3.4 L Chloride 110 H Carbon Dioxide 29.4 Anion Gap 3.6 BUN 16 Creatinine 0.8 Est GFR (CKD-EPI 2020) 99.44 Glucose 83 Calcium 11.3 H Magnesium 1.6 Total Bilirubin 0.3 AST 33 ALT 18 Alkaline Phosphatase 113 Total Protein 4.6 L Albumin 1.5 L Time Spent with Patient Time Spent with Patient: >50 minutes Time was spent: preparing to see the patient(eg.review tests), obtaining and/or reviewing separately otained hiistory, ordering medications,tests, procedures, referring, communicating with other health home health aide caregiver, indepentently interpreting results, counseling the patient and care coordination
[2025-01-15 18:31] LABS: T4, Free 1.3 ng/dL (0.8-2.2)
[2025-01-16] VITALS (22 sets, daily range): BP systolic 67–83; BP diastolic 36–47; PULSE 57–72; RESP 12–16; TEMP 36.4–37.3; O2SAT 77–100
[2025-01-16] MEDS: Normal Saline 1,000 ML 150 ML IV ×3 (01:55→16:42)
[2025-01-16] MEDS: oxyCODONE 15 MG TAB PO ×2 (04:25→08:02)
[2025-01-16] MEDS: MORPHine 10 MG/ML VIAL 6 MG IVP ×2 (04:39→08:02)
[2025-01-16] MEDS: Levothyroxine 100 MCG TAB PO (05:32)
[2025-01-16] MEDS: oxyCODONE-CR 20 MG TABCR 80 MG PO (05:32)
[2025-01-16] MEDS: fentaNYL 100 MCG PATCH 200 MCG TD (08:31)
[2025-01-16] MEDS: Midodrine 2.5 MG TAB 10 MG PO ×3 (09:16→20:29)
[2025-01-16] MEDS: Apixaban 5 MG TAB PO ×2 (09:16→20:29)
[2025-01-16] MEDS: Doxycycline Hyclate 100 MG CAP PO ×2 (09:17→20:29)
--- NOTE | 2025-01-16 09:29 | CMPROGNOTE_ITS ---
Date of service: 01/16/25 Time of Service: 09:29 Care Management Progress Note Progress Note Text Progress Note Text: Anant was lying in bed when CM met with him. He was polite but did not fully engage with CM. He did not answer most questions that were asked and seemed to focus on his beeping IV which silenced when he straightened out his arm. 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 He did not seem pleased about the pump but did not dwell on it. Dr. Loyola from Palliative Care came to see him this afternoon. Per the hospitalist, Anant will likely remain at [facility] for end of life care. Discharge Potential Discharge Needs: Other (may remain for end of life care) Anticipated Barriers to Discharge: Medical Status Transportation: Other (to be determined by disposition) Plan: Anant will likely remain at [facility] for end of life care. He does not have a 24/7 caregiver so would be unable to discharge home on hospice and does not have funds for a SNF. CM will follow and continue to support Anant through this difficult period. Social Determinants of Health Screening Social Determinants of Health last assessed: 01/16/25 Will the Patient Participate in the Screening?: Unable to obtain Do you worry about having a steady place to live?: no Problems where you live: no known problems In the past 12 months, have you had to go without electric, gas, oil or water in your home?: yes Have you or anyone in your house had to go without enough food to eat?: yes 1. Within the past 12 months, we worried whether our food would run out before we got money to buy more.: Don't know/refused 2. Within the past 12 months, the food we bought just didn't last and we didn't have money to get more.: Don't know/refused Referred to:: Not Applicable Has lack of transportation kept you from medical appointments or from doing things needed for daily living?: yes Has anyone in your life made you feel unsafe or unsupported?: no How hard is it for you to pay for the very basics like food, housing, medical care, and heating? Would you say it is:: Not hard at all Do you want help finding or keeping work or a job?: I do not need or want help If for any reason you need help with day-to-day activities such as bathing, preparing meals, shopping, managing finances, etc., do you get the help you need?: I don?t need any help How often do you feel lonely or isolated from those around you?: Sometimes Do you speak a language other than [place] at home?: Yes Does the patient want assistance with any of the above?: Yes Health Related Social Needs Health related social needs: food insecurity (Z59.41), transportation insecurity (Z59.82), material hardship(utilities) (Z59.12), feeling lonely/isolated (Z60.8) and education (Z55.6)
[2025-01-16] MEDS: ACETAMINOPHEN 1,000 MG/100 ML BAG 400 MG IVPB (09:31)
[2025-01-16] MEDS: Normal Saline Flush 10 ML SYR IVP ×2 (09:41→20:29)
--- NOTE | 2025-01-16 10:57 | PGE_ITS ---
Date of Service Date of service: 01/16/25 Time of Service: 10:57 Assessment and Plan Assessment and plan (1) Intractable pain: Status: Acute Assessment and plan: -continue fentanyl patch 200mcg Q48hrs -discontinue PO oxycontin 80mg Q8hr, PO oxycodone 15-30mg Q3hr PRN and PRN IV morphine 6mg Q2hrs -AM 01/16 started dilaudid CADD 1mg/hr with 0.5mg Q15min PRN -Attempted to discuss patients worsening condition, but he was understandably withdrawn on 01/15 -Based on his current wishes, the patient is essentially a no escalation of care; he remains a DNR/DNI, declined pressors and central line on admission, but we are continuing current medications including but not limited to antibiotics, midodrine, and IV fluids -As noted in subjective, discussed pain regimen with the patient, leading to above mentioned changes. Also discussed transition of p.o. meds to IV including doxycycline and midodrine to which the patient ultimately shook his head no. 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 Doxy, IV fluids and midodrine). I referred to previous conversation I had with the patient regarding his primary wishes to not go to skilled nursing or other facility for end-of-life, and I reassured him that we would continue his care here at [facility] to which he expressed gratitude. -Palliative Care consult now in place, to see patient this afternoon on 01/16/2025 (2) Hypercalcemia: Status: Acute Assessment and plan: -Patient does have extensive bony metastases and was dehydrated on presentation. -Calcium improving after IV hydration overnight. (3) Hypokalemia: Status: Acute Assessment and plan: -Replace and follow-up lab. (4) Primary cancer of anal canal: Status: Chronic Assessment and plan: -Stage IV with advanced disease and intractable pain. 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 (5) Osteomyelitis, pelvis: Status: Chronic Assessment and plan: -Continue doxycycline though this most likely will not clear his infection. -Continue IV fluid resuscitation but declined vasopressors on admission (6) Acute DVT (deep venous thrombosis): Status: Chronic Assessment and plan: Continue Eliquis for now. (7) COPD (chronic obstructive pulmonary disease): Status: Chronic Assessment and plan: Nebulizer treatments as needed. Patient does continue to smoke tobacco but less then a daily basis. (8) Smoker: Status: Chronic Assessment and plan: Nicotine patch for comfort. (9) Hypothyroidism (acquired): Status: Chronic Assessment and plan: Synthroid supplement without change with patient in control and scheduled environment. (10) Discharge planning issues: Status: Acute Assessment and plan: case management following is not managing at home palliative care/hospice consult unlikely will be able to safely return home discussed with DR Lopes Subjective Subjective Interval history since last seen: Patient continues to be withdrawn, but is able to state that he was having difficulty swallowing some of his medications this morning. Long discussion was had with the patient, and he agreed to transition to continuous drip for pain medication given that he is having difficulty swallowing. We also talked about if you are not able to take other p.o. medications and whether he would want them continued IV, to which he initially showed indifference. When I pressed the issue further and again asked if he will want his medications changed over if he were not able to take p.o., he shook his head no. Exam Narrative Exam Narrative: Chronically ill severely cachectic appearing gentleman laying in bed, older than stated age, ANO x 4, heart regular rhythm, lungs clear to auscultation bilaterally, abdomen soft, nontender, nondistended, please review nurses notes for assessment of wounds Objective Last Vital Signs Temp 97.7 F 01/16/25 05:01 Pulse 71 01/16/25 06:00 Resp 12 01/16/25 05:01 BP 67/38 L 01/16/25 05:01 Pulse Ox 100 01/16/25 06:00 Laboratory Results - last 24 hr 01/13/25 23:13 Free T4 1.3 Time Spent with Patient Time Spent with Patient: >50 minutes Time was spent: preparing to see the patient(eg.review tests), obtaining and/or reviewing separately otained hiistory, ordering medications,tests, procedures, referring, communicating with other health healthcare network pricing consultant, indepentently interpreting results, counseling the patient and care coordination
--- NOTE | 2025-01-16 13:24 | PCNE_ITS ---
Date of service: 01/16/25 Time of Service: 13:24 History of Present Illness Narrative: Ronaldo Esqueda is a 63-year-old gentleman who lives in [facility]. 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 He has persistent disease as well as chronic abscess and osteomyelitis causing chronic pain. I know Mr. Esqueda well, having met with him frequently since December 2023 to help with pain management as well as goals of care and additional support. His Additional medical problems include COPD, DVT (diagnosed summer 2023, now on lifelong DOAC) , history distant EtOH abuse. We continue to manege and prescribe his pain medications. Anant has been declining over the past several months. He had a 2+ week admission to [facility] from 12/05-12/22/24 for sepsis/osteomyelitis with hypotension and uncontrolled pain. He insisted on going home after discharge. As per report of family and Home Health, initially upon return to home , he was able to do minimal walking. But in recent 7-10 days has been bed ridden. All involved in his care ([facility] and nurse and me) also note that he has seemed confused in the last week as well. HOwever, his pain seemed to be reasonably well controlled. Has not seen Oncology in several months. Immune checkpoint inhibitor had been stopped because of sideefects and no life prolonging or QOL-improving interventions to be offered. Palliative care team consulted today to help with goals of care as well as symptom management. Care Team: Primary Care physician: KELLY Guevara Oncology: Dr. Jose De Jesus [place]rett: Radiation oncology: Dr. Roblero Surgery: Dr. Driver Colorectal surgery/[facility]: Dr. Chaya Gambino (also client service consultant on persistent perineal wound defect) [facility] wound care clinic: Dr. Gambino (for large soft tissue defect at site of cancer) Ostomy: (Neisha) Social HX: Lives alone in [facility], 8 years ago, from Lung Cancer. (they at the end of her life). He cares for several cow(s). Children: [place] and [place], rare contact. Does not drive. 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 He finally got enrolled in SSI about 3 months ago and has started receiving monthly checks. Smoker: Most recent oncology note says half a pack per day EtOH: [facility] chart notes history of alcohol abuse. Patient reports no alcohol in a year since diagnosis. Hobbies: Hunting (got out once this fall), TV, keeps house running. Additional services: -Ongoing assistance with transportation from [employer]. -Transportation from [facility] health wound nurse (Hipolito) twice weekly: cleans the wound. Also brings him dressing supplies. - says Social work and PT coming in Advanced Care Planning: Advanced Directive: None on file Health Care Agent: 02/15/2024 healthcare agent form: [id number] Leticia Pressley, alternate is his landlord COLST: 12/19/2024 COLST on file: DNR/DNI, +transfer and treat Limitations: Assessment and Plan Assessment and plan (1) Anal squamous cell carcinoma: Status: Acute Assessment and plan: My impression is that Anant has now transitioned into final stage of his disease. Best guess of his prognosis is several days to a few weeks left to live. Unclear if he is electing not to engage in discussion or if he has hypoactive delirium. Fact that his sensorium does seem to wax and wane would favor delirium. He is still taking in fluids. Either way I think he has limited capacity to engage in goals of care discussion at this time. In the past he was adamantly opposed to being admitted to hospice or to consider end-of-life care. Reportedly at the time of this admission he said he did not want any escalation of care (did not want IV pressors or IV abx) and wanted to remain DNR/DNI. Today when I asked at his bedside for permission to discuss his prognosis and what sort of care he wished to have going forward, he declined to engage with me. If patient had been able to engage in discussion, I would have recommended to comfort focused care. However, even wihtout this discussion, he does seem quite comfortable and accepting of his current situation. He has been switched to IV hydromorphone CADD pump for pain control and this appears to be working well. He continues on the fentanyl patches total of 200 mcg. There is option of slowly discontinuing the fentanyl patch as well compensating for this with increased IV hydromorphone. At the patient has always been distressed in the past when we discontinued any pain medicines. Please titrate up dose of hydromorphone as needed and increase bolus size if needed, since keeping him comfortable is the goal. I spoke with his [id number] Maame, who is his healthcare agent. I suspect he will lose capacity to make decisions and that she will need for him to begin making decisions for him. I explained this to her. She gave additional information: -Landlord of 20 years called Maame the day of admission and told her that she had to come get Anant carlosse they had to move him out htat day. NO explanation and rent paid through the end of this month. -Maame also described 3 falls Ronaldo had the week he came home from the hospital; he decided it was not safe for him to get out of bed after that. -Brother Sabas is having a hard time, with Ronaldo's terminal illness. I offered that he speak with Chaplian. SHe will let him know this is option. -Maame and Sabas planning to visit tomorrow. Consider: -Stopping Midodrine. This will occur spontaneously one he is no longer able to swallow. -Continue doxycycline until he is no longer able to swallow. -PCT will continue to check in on him daily. -Please call [facility]/Vmpbkd-lj-upy Maame and brother Sabas if patient is declining rapidly, or if Ronaldo unable to make decisions. (2) Cancer related pain: Status: Acute (3) Abnormal weight loss: Status: Acute (4) Cancer cachexia: Status: Acute (5) Osteomyelitis, pelvis: Status: Chronic (6) DNR (do not resuscitate): Status: Acute (7) Palliative care encounter: Status: Acute (8) Advanced care planning/counseling discussion: Status: Acute PFSH All Active Problems Discharge planning issues (Acute) Hypokalemia (Acute) Hypercalcemia (Acute) Deficient knowledge of ostomy care (Acute) Dehydration (Acute) Tachycardia (Acute) Hypothyroidism (acquired) (Chronic) Intractable pain (Acute) Palliative care encounter (Acute) Pain from bone metastases (Acute) DNR (do not resuscitate) (Acute) 12/19/2024 COLST: DNR/DNR + transfer and +treat, +abx and + IV fluids. 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 Bone mets, local metastases. 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 (Acute) Housing insecurity (Acute) Food insecurity (Acute) 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 COPD (chronic obstructive pulmonary disease) (Chronic) Hypoalbuminemia due to protein-calorie malnutrition (Acute) Microcytic anemia (Acute) Smoker (Chronic) Medical History Status post radiation therapy ETOH abuse Resolved February 2023 Family History Other Cancer Social History Smoking/Tobacco Use Status: Current every day Tobacco Type: cigarettes Smoking risk assessment performed?: Yes Alcohol Intake: former Drug use: Rarely Substance use type: marijuana Housing: apartment Do you feel safe at home: Yes Do you feel safe in your relationship?: Yes Exam Narrative Exam Narrative: Gaunt gentleman laying quietly in bed staring off in the distance with eyes open. Mucous membranes are dry. He appears relaxed. Laying on his back. Occasional wince of pain when he tries to reposition himself. Answer several questions with grunts yes or no. Twice looks at me with eye contact but does not answer question. Remainder visit stares off into the distance. Weight is down over 5 kg from a month ago when he was discharged from the hospital. Results Last Vital Signs Temp 36.9 C 01/16/25 13:02 Pulse 67 01/16/25 09:16 Resp 12 01/16/25 05:01 BP 81/40 L 01/16/25 09:16 Pulse Ox 99 01/16/25 09:16 Labs 01/15/25 08:40 01/15/25 08:40 Labs: Laboratory Results - last 24 hr 01/13/25 23:13 Free T4 1.3 Time Spent Time Spent with Patient Time Spent(min): 75
--- NOTE | 2025-01-16 17:18 | W.PC.ACHO ---
Registration Status: Primary Language: Preferred Language: ED Information & Data Chief Complaint AMS/LOC 01/13/25 23:00 Triage Note family reported to EMS AMS, 01/13/25 21:32 patient having increased weakness, has sacral Pressure ulcer, has not been taking meds as prescribed Medical / Surgical History Status post radiation therapy ETOH abuse Most Recent Vital Signs Temperature 36.9 C 01/16/25 13:02 Temperature Source Temporal Artery Scan 01/16/25 13:02 Pulse 60 01/16/25 14:00 Respiratory Rate 12 01/16/25 05:01 Respiratory Effort Normal 01/14/25 08:02 Respiratory Depth Normal 01/14/25 08:02 Respiratory Pattern Normal 01/14/25 08:02 Blood Pressure 76/38 L 01/16/25 12:01 Blood Pressure Mean 50 01/16/25 12:01 Blood Pressure Position Supine 01/14/25 08:02 Pulse Oximetry 100 01/16/25 14:00 Oxygen Delivery Method Room Air 01/16/25 13:02 Oxygen Flow Rate 0 01/16/25 13:02 Pain Level 10 01/16/25 14:27 Comment BP small light blue cuff on left lower leg 01/16/25 05:01 Comment Provider in room and aware of low BP 01/14/25 14:31 Allergies No Known Allergies Allergy (Verified 01/13/25 21:39) Precautions Isolation Standard precaution 01/13/25 22:09 Active Medications Generic Name Dose Route Start Last Admin Trade Name Freq PRN Reason Stop Dose Admin Acidophilus 1 gm 01/14/25 08:30 01/16/25 09:40 Lactobacillus 1 Gram Granules Packet PO Not Given DAILY ОЛЬГА Apixaban 5 mg 01/14/25 08:30 01/16/25 09:16 Apixaban 5 Mg Tab PO 5 mg BID ОЛЬГА Administration Doxycycline Hyclate 100 mg 01/14/25 08:30 01/16/25 09:17 Doxycycline Hyclate 100 Mg Cap PO 100 mg BID ОЛЬГА Administration Fentanyl 200 mcg 01/14/25 08:30 01/16/25 08:31 Fentanyl 100 Mcg Patch TD 200 mcg Q48H ОЛЬГА Administration Sodium Chloride 1,000 mls @ 150 mls/hr 01/14/25 00:45 01/16/25 16:42 Saline 1000ml Bag IV 150 mls/hr INFUSION ОЛЬГА Administration Acetaminophen 1,000 mg in 100 mls @ 400 mls/hr 01/16/25 08:00 01/16/25 16:35 Ofirmev IVPB Not Given Q8H ОЛЬГА Hydromorphone HCl 500 mg/ 250 mls @ 0.5 mls/hr 01/16/25 15:00 01/16/25 15:39 Dextrose/Water IV_INF 2 mg/hr INFUSION ОЛЬГА 1 mls/hr Administration Protocol 1 MG/HR Levothyroxine Sodium 100 mcg 01/14/25 06:00 01/16/25 05:32 Levothyroxine 100 Mcg Tab PO 100 mcg 0600 ОЛЬГА Administration Lidocaine HCl 0 ml 01/14/25 07:14 01/14/25 16:47 Lidocaine 2% Jelly 11 Ml Syr MM 11 ml TID PRN PRN Administration PAIN Magnesium Hydroxide 30 ml 01/14/25 01:15 01/14/25 03:30 Milk Of Magnesia 30 Ml Cup PO 30 ml DAILY PRN PRN Administration Midodrine 10 mg 01/14/25 08:30 01/16/25 14:23 Midodrine 2.5 Mg Tab PO 10 mg TID ОЛЬГА Administration Nicotine 21 mg 01/14/25 01:15 01/14/25 10:47 Nicotine 21 Mg/24 Hr Patch TD 21 mg DAILY PRN PRN Administration Polyethylene Glycol 17 gm 01/14/25 20:00 01/15/25 21:51 Polyethylene Glycol 3350 17 Gm Packet PO Not Given HS ОЛЬГА Sodium Chloride 0 ml 01/14/25 01:15 01/15/25 13:27 Normal Saline Flush 10 Ml Syr IVP 20 ml PRN PRN Administration Sodium Chloride 0 ml 01/14/25 08:30 01/16/25 09:41 Normal Saline Flush 10 Ml Syr IVP 10 ml BID ОЛЬГА Administration IV IV Catheter Type [Right Peripheral IV Antecubital] IV Catheter Gauge [Right 18 Antecubital] Diagnostics 01/13/25 Range/Units 23:13 Free T4 1.3 (0.8-2.2) ng/dL Intake and Output - 24 Hour Total 01/13/25 21:21 thru 01/16/25 16:49 Intake Total 9510.285 Output Total 3090 Balance 6420.285 Weight 51.832 kg Intake: IV 8160.285 Oral 1350 Output: Urine 2790 Stool 300 Other: Urine Color Yellow Urine Appearance Clear Urinary Catheter Urinary Catheter Date of 01/14/25 Insertion [Urethral (Leigh)] Time of insertion [Urethral ( 03:16 Leigh)] Falls Risk Assessment History of Falls Previous History 01/14/25 08:02 Contributing Factors Confusion,Unstable, 01/14/25 08:02 Incontinence,Medications Ambulatory Aids Uses ambulatory device + 01/14/25 08:02 Tubes/Lines With any additional score 01/14/25 08:02 Gait Evaluation W/any additional score 01/14/25 08:02 Cognition Cognitive impairment 01/14/25 08:02 Fall Total Score 112 01/14/25 08:02 Level of Risk Maximum Risk 01/14/25 08:02 Problems Discharge planning issues (Acute) Hypokalemia (Acute) Hypercalcemia (Acute) Deficient knowledge of ostomy care (Acute) Dehydration (Acute) Tachycardia (Acute) Hypothyroidism (acquired) (Chronic) Intractable pain (Acute) Palliative care encounter (Acute) DNR (do not resuscitate) (Acute) Acute DVT (deep venous thrombosis) (Chronic) Osteomyelitis, pelvis (Chronic) Primary cancer of anal canal (Chronic) Cancer cachexia (Acute) Abnormal weight loss (Acute) Advanced care planning/counseling discussion (Acute) Cancer related pain (Acute) Housing insecurity (Acute) Food insecurity (Acute) Anal squamous cell carcinoma (Acute) COPD (chronic obstructive pulmonary disease) (Chronic) Smoker (Chronic) Notes 01/14/25 05:17 Nursing Notes by Destiny Renee paged Dr. Flower for continued hypotension despite fluids running continuously. provider states we are getting closer to day shift, they can call in family or palliative today. MD aware of unstable vital signs and changes in pt's mentation no new orders given. Initialized on 01/14/25 05:17 - END OF NOTE 01/14/25 05:11 Nursing Notes by Destiny Renee Went in to assess pt. Pt denies pain, denies confusion, however is more fatigued than prior assessment. pulses are thready, despite continuous running fluids. MD aware Initialized on 01/14/25 05:11 - END OF NOTE 01/14/25 04:08 Nursing Notes by Destiny Renee Dr. paged for BP's continuing to trend down into the 60s and 50s systolic. with MAP's in the 30s and 40s. MD aware and offers no new orders at this time. Initialized on 01/14/25 04:08 - END OF NOTE 01/14/25 03:00 (created 01/14/25 04:24) Nursing Notes by Destiny Renee Dr. paged for Blood Pressures remaining with systolics in the 70s and 80s after 2 liters of fluid. This sba underwriter questioned the rate of IV fluids in regards to it not being enough to support BP. Provider stated it should be enough and that treatment would not be aggressive. This sba underwriter inquired about when to call in regards to Blood Pressures. Provider was unable to give objective BP goals and insisted this sba underwriter to assess his mentation instead. No new orders given Initialized on 01/14/25 04:24 - END OF NOTE v v v v v v v v v Sending and/or Receiving Nurses: Please use comment section below to note any information pertinent to the patient hand-off not included above. Information / Comments: Report received from: Pao RESEARCH SCIENTIST
--- NOTE | 2025-01-16 17:29 | CHAPLAIN ---
I visited Anant twice today when he was in the ICU. The first time he was very sleepy. He opened his eyes when I said his name, and then closed them again. Later in the day he was awake. He offered one word answers to a couple of questions and then just stared straight ahead. I will continue to visit.
--- NOTE | 2025-01-16 18:41 | NUR.NOTE ---
patient was transferred over from ICU, report from Pao THOMAS. Patient came on dilaudid drip at 1mg/hr (0.5ml/hr). Double checked and signed off with Pao THOMAS. Dilaudid drip was spiked with normal ported tubing and reservoir bag was not locked, neither was IV pump. Used lockbox to lock reservoir, spiked and primed new controlled substance portless tubing and wasted prior tubing with Wendy THOMAS charge nurse and notified pharmacy/filled out waste form. IV pump now locked with code for safety. Pt denies needing bolus dose and said he doesn't need anything post transfer. 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 Patient is sleeping at this time. On specialty bed with turns side to side set Q10 mins. Oriented to unit and staff, call dominguez in reach. NS running at 100ml/hr now down from 150ml/hr. Unable to assess orientation as patient refuses to respond to certain questions. Patient is irritable and angry at times. Nursing Note:
[2025-01-17 00:32] VITALS: RESP 18
[2025-01-17 01:30] VITALS: BP 70/42; PULSE 67; RESP 12; TEMP 36.8; O2SAT 92
[2025-01-17] MEDS: Normal Saline 1,000 ML 100 ML IV (02:13)
[2025-01-17 04:43] VITALS: BP 79/53; PULSE 59; RESP 18; TEMP 37
[2025-01-17 08:49] VITALS: BP 61/37; PULSE 54; RESP 28; TEMP 37.8; O2SAT 92
[2025-01-17] MEDS: Normal Saline Flush 10 ML SYR IVP (09:00)
--- NOTE | 2025-01-17 09:34 | NUR.NOTE ---
Nursing Note: RN spoke with patient regarding his goals of care, he agreed to being kept comfortable and wanted more pain medication. Provider notified and Hydromorphone drip dose increased. patient verbalzied pain with repositioning, VS, unable to swallow PO meds, fluids, and food. Rn spoke with patient regarding interventions like PO medication would not be an option due to inability to swallow w/ risk for choking and aspiration. patient stated he understood and was on board with plan for comfort. Provider updated orders to reflect patient wishes.
--- NOTE | 2025-01-17 10:09 | CMPROGNOTE_ITS ---
Date of service: 01/17/25 Time of Service: 10:09 Care Management Progress Note Progress Note Text Progress Note Text: Anant was moved out of the ICU to the Med-Surg unit yesterday. He was lying in bed visiting with a woman named Santa and a gentleman when CM met with him. Anant was very sleepy and barely answered questions although he did inform CM that he remains comfortable. Per Staff, Anant has stopped eating and drinking and his medication has been adjusted to accommodate that. Anant's [id number]-cdj Maame came to visit this afternoon as well. CM will follow. Discharge Anticipated Barriers to Discharge: Other (will likely remain at [facility] for end of life care) Plan: Anant will likely remain at [facility] for end of life care. He does not have a / caregiver so would be unable to discharge home on hospice and does not have funds for a SNF. CM will continue to provide support to Anant through this difficult period. Social Determinants of Health Screening Social Determinants of Health last assessed: 01/17/25 Will the Patient Participate in the Screening?: Unable to obtain Do you worry about having a steady place to live?: no Problems where you live: no known problems In the past 12 months, have you had to go without electric, gas, oil or water in your home?: yes Have you or anyone in your house had to go without enough food to eat?: yes 1. Within the past 12 months, we worried whether our food would run out before we got money to buy more.: Don't know/refused 2. Within the past 12 months, the food we bought just didn't last and we didn't have money to get more.: Don't know/refused Referred to:: Not Applicable Has lack of transportation kept you from medical appointments or from doing things needed for daily living?: yes Has anyone in your life made you feel unsafe or unsupported?: no How hard is it for you to pay for the very basics like food, housing, medical care, and heating? Would you say it is:: Not hard at all Do you want help finding or keeping work or a job?: I do not need or want help If for any reason you need help with day-to-day activities such as bathing, preparing meals, shopping, managing finances, etc., do you get the help you need?: I don?t need any help How often do you feel lonely or isolated from those around you?: Sometimes Do you speak a language other than Citizen [place] at home?: Yes Does the patient want assistance with any of the above?: Yes Health Related Social Needs Health related social needs: food insecurity (Z59.41), transportation insecurity (Z59.82), material hardship(utilities) (Z59.12), feeling lonely/isolated (Z60.8) and education (Z55.6)
--- NOTE | 2025-01-17 11:09 | PGE_ITS ---
Date of Service Date of service: 01/17/25 Time of Service: 11:09 Assessment and Plan Assessment and plan (1) Intractable pain: Status: Acute Assessment and plan: -continue fentanyl patch 200mcg Q48hrs -discontinue PO oxycontin 80mg Q8hr, PO oxycodone 15-30mg Q3hr PRN and PRN IV morphine 6mg Q2hrs -AM 01/16 started dilaudid pump 1mg/hr with 0.5mg Q15min PRN -Dilaudid pump increased to 2 mg/h with 0.5 mg every 15 as needed -Attempted to discuss patients worsening condition, but he was understandably withdrawn on 01/15 -Based on his current wishes, the patient is essentially a no escalation of care; he remains a DNR/DNI, declined pressors and central line on admission, but we are continuing current medications including but not limited to antibiotics, midodrine, and IV fluids -As noted in subjective, discussed pain regimen with the patient, leading to above mentioned changes. Also discussed transition of p.o. meds to IV including doxycycline and midodrine to which the patient ultimately shook his head no. -With his current regimen, he is essentially PHYSICIAN ASSISTANT PRIMARY CARE/hospice (with the exception of currently continuing p.o. Doxy, IV fluids and midodrine). I referred to pr evious conversation I had with the patient regarding his primary wishes to not go to skilled nursing or other facility for end-of-life, and I reassured him that we would continue his care here at [facility] to which he expressed gratitude. -As of a.m. 01/17/2025 patient no longer able to take any p.o. medications, and while confused was able to clearly state he did not want to take any more of his p.o. medications, did not want his vitals to be checked, and did not want to be moved for any dressing changes given significant discomfort and pain. At this time, without the patient stating the exact words, he is essentially PHYSICIAN ASSISTANT PRIMARY CARE status as all known comfort directed medications and treatments have been discontinued at the request of the patient (2) Hypercalcemia: Status: Acute Assessment and plan: -Patient does have extensive bony metastases and was dehydrated on presentation. -Calcium improving after IV hydration overnight. (3) Hypokalemia: Status: Acute Assessment and plan: -Replace and follow-up lab. (4) Primary cancer of anal canal: Status: Chronic Assessment and plan: -Stage IV with advanced disease and intractable pain. -Palliative and hospice referral for possible full transition to PH[facility]IC[facility] ASS[facility]IMARY C[facility] status (see above for details) -He is a DNR/DNI. (5) Osteomyelitis, pelvis: Status: Chronic Assessment and plan: -Continue doxycycline though this most likely will not clear his infection. -Continue IV fluid resuscitation but declined vasopressors on admission (6) Acute DVT (deep venous thrombosis): Status: Chronic Assessment and plan: Continue Eliquis for now. (7) COPD (chronic obstructive pulmonary disease): Status: Chronic Assessment and plan: Nebulizer treatments as needed. Patient does continue to smoke tobacco but less then a daily basis. (8) Smoker: Status: Chronic Assessment and plan: Nicotine patch for comfort. (9) Hypothyroidism (acquired): Status: Chronic Assessment and plan: Synthroid supplement without change with patient in control and scheduled environment. (10) Discharge planning issues: Status: Acute Assessment and plan: case management following is not managing at home palliative care/hospice consult unlikely will be able to safely return home discussed with DR Lopes Subjective Subjective Interval history since last seen: Patient a little more moist and confused as compared to previous day. However, he does state this morning he was in significant amount of pain and requested increase in his pain regimen. He also had difficulty swallowing all p.o. medications and was able to state that he did not want them anymore, as well as not wanting to be bothered for having his vitals checked or his wound changed as both caused significant pain and discomfort. Exam Narrative Exam Narrative: Chronically ill severely cachectic appearing gentleman laying in bed, older than stated age, awake, alert, 1 more confused as compared to previous stable oriented to person and place, heart regular rhythm, lungs clear to auscultation bilaterally, abdomen soft, nontender, nondistended, please review nurses notes for assessment of wounds Objective Last Vital Signs Temp 100.0 F H 01/17/25 08:49 Pulse 54 L 01/17/25 08:49 Resp 28 H 01/17/25 08:49 BP 61/37 L 01/17/25 08:49 Pulse Ox 92 01/17/25 08:49 Time Spent with Patient Time Spent with Patient: >50 minutes Time was spent: preparing to see the patient(eg.review tests), obtaining and/or reviewing separately otained hiistory, ordering medications,tests, procedures, referring, communicating with other health urgent care, indepentently interpreting results, counseling the patient and care coordination
--- NOTE | 2025-01-17 13:17 | PHACLINREV_ITS ---
Pharmacy Admission Review Admission Clinical Review Admission Pharmacy Review: Discharge planning issues (Acute) Hypokalemia (Acute) Hypercalcemia (Acute) Deficient knowledge of ostomy care (Acute) Dehydration (Acute) Tachycardia (Acute) Intractable pain (Acute) Palliative care encounter (Acute) DNR (do not resuscitate) (Acute) Cancer cachexia (Acute) Abnormal weight loss (Acute) Advanced care planning/counseling discussion (Acute) Cancer related pain (Acute) Housing insecurity (Acute) Food insecurity (Acute) Anal squamous cell carcinoma (Acute) No Known Allergies Allergy (Verified 01/13/25 21:39) Resuscitation Status DNR/DNI Height 6 ft 2 in Weight 51.832 kg Pharmacy Admission Review Renal Dosing Renal Dosing: BUN 16 mg/dL (7-18) 01/15/25 08:40 Creatinine 0.8 mg/dL (0.70-1.30) 01/15/25 08:40 Medications needing adjustments: Reviewed (CrCl 55.43 mL/min) Anticoagulation Anticoagulation: Hgb 8.8 g/dL (13.5-17.5) L 01/15/25 08:40 Hct 26.8 % (40.0-50.0) L 01/15/25 08:40 Plt Count 248 10^3/uL (130-400) 01/15/25 08:40 INR 1.4 (0.9-1.1) H 01/14/25 06:10 Creatinine 0.8 mg/dL (0.70-1.30) 01/15/25 08:40 DVT Prophylaxis: N/A (BLACKTOP PAVER OPERATOR) Opiate Usage Evaluate Pain Scale/Pains Meds: Reviewed (fentanyl 100mcg patch + hydromorphone infusion at 2mg/hr) Scheduled Bowel Reg ordered if on Opiates?: No Relevant Labs Relevant Labs: Sodium 143 mmol/L (136-145) 01/15/25 08:40 Potassium 3.4 mmol/L (3.5-5.1) L 01/15/25 08:40 Chloride 110 mmol/L (98-107) H 01/15/25 08:40 Magnesium 1.6 mg/dL 01/15/25 08:40 Electrolytes, C-Reactive P, ESR: N/A (BLACKTOP PAVER OPERATOR) Cardiac Review BP, HR, EF%: Reviewed (BP 61/37, HR 54 and RR 28) QTc Review QTc: Reviewed (404 01/13/25) IV to PO Switch IV Medications: Reviewed Home Meds Home Med List reviewed: Reviewed Current Meds Current Medication Order Review: Reviewed
--- NOTE | 2025-01-17 13:57 | W.PALPGNOTE ---
Date of service: 01/17/25 Time of Service: 15:00 Assessment and Plan Assessment and plan (1) Intractable pain: Status: Acute Assessment and plan: continue uptitration of Dilaudid per ONLINE ADVERTISING MANAGER protocol, hospitalist to adjust order set - recommend increase bolus to 50% of basal w/increases currently on 3mg/hr basal, appears comfortable during this visit, did receive Ativan relatively recent to visit (2) Primary cancer of anal canal: Status: Chronic Assessment and plan: w/metastasis and osteomyelitis from chronic abscess wounds (3) Osteomyelitis, pelvis: Status: Chronic Assessment and plan: extremely painful (4) End of life care: Status: Acute Assessment and plan: remain at [facility] through EOL; anticipate life expectancy hours to days - did not review s/sxs of EOL with Maame, this may be appropriate for visitors with him to review in future - no oral intake today, increased sleeping, increased pain/agitation, not out of bed, metastatic disease w/osteomyletitis w/no current treatments (5) Comfort measures only status: Status: Acute Assessment and plan: reviewed w/[facility] KERA Treviño, she consents to transition to ONLINE ADVERTISING MANAGER, Ronaldo was previously engaged enough to be aware that he is dying and expressed focus to be on comfort - recommend continue Ativan 0.5mg-1mg q1h PRN for agitation or anxiety, it appears to have worked well today, trial 0.5mg dose PRN - recommend continue uptitration of Diluadid per ONLINE ADVERTISING MANAGER protocols, using bolus prior to any personal care - ONLINE ADVERTISING MANAGER order set to be placed by hospitalist offered rack production worker supports to Maame, declined at this time personal items removed from room via request from [facility]/Maame, nursing to store until she picks them up Subjective Subjective Interval history since last seen: Ronaldo remains hospitalized 2/2 intractable pain 2/2 osteomyelitis and SCC of anus - last seen by PC 01/16/25 per staff: Ronaldo has continued to decline since his hospitalization. He is no longer taking in anything by mouth, he refused VS/dressing changes today; increased sleeping. He is engaging less, despite being awake/alert, will refuse to answer questions or not answer at all. - pain: started on hydromorphone pump, today uptitrated to 3mg/hr, 1mg bolus q15m PRN, staff feel pain is uncontrolled, would like option to increase basal tirtration per ONLINE ADVERTISING MANAGER protocols, are doing best w/bolus dosing, however feel too behind on pain at this time. increased pain w/repositioning, light personal care, VS, all of which he refused earlier - agitation/anxiety: more anxious/agitated today, restless, wanting to get out; was given first dose of Ativan 1mg a little bit ago, w/good effect, appears much more comfortable now - resp: no rattle or secretions, or dyspnea noted - KERA Isabel visited earlier, she is [facility], she is aware that he is EOL; - RN re w/Ronaldo earlier reviewed his decline: VS, labs, status etc; that he is dying and the POC to not force him to do anything he doesn't want (VS, etc) but focus on his comfort, he agreed to this POC as his focus per Mamae: visited him earlier, he was starring off into space, no engagement; he does seem comfortable right now - worried he is mad at her and Valentina bc they wanted him back in the hospital after he was failing at home; was disappointed that he was sent home the first time (12/22) - Maame is aware he is dying during this admission. she wants the focus to be on his comfort, this has been what he has wanted too - she is having a hard time with this, her father at the end of this month, she does have her mother as a support system - she is worried that his brother's gf (Santa) is notorious for things going missing and is requesting his person items are packed and kept in a safe space for her to get at a later date. - brother's Sabas and Echeverria Exam Narrative Exam Narrative: General: older adult man, cachecix, eyes open intermittently, does not attempt communication HEENT: temporal wasting, atraumatic Resp: unlabored, even, shallow, no audible wheeze or rattle : 200mL yellow urine noted in catheter bag Ext: warm, muscle atrophy, pulses 2+ BUE radial, 1+ BLE DP w/trace pedal edema Psych: does not respond to light touch, elevated voice volume Objective Last Vital Signs Temp 100.0 F H 01/17/25 08:49 Pulse 54 L 01/17/25 08:49 Resp 28 H 01/17/25 08:49 BP 61/37 L 01/17/25 08:49 Pulse Ox 92 01/17/25 08:49
[2025-01-17] MEDS: LORazepam 2 MG/ML VIAL IV/SC (15:05)
--- NOTE | 2025-01-17 16:06 | CHAPLAIN ---
Anant has stopped eating, and is not wanting to take his PO meds or have his vitals checked, according to the hospitalist's note today. He his brother and sister in law were visiting when I stopped in this morning. Anant took some sips of water with a little help from his brother. His other sister in law, Maame, is expected to visit this afternoon. She is Anant's HCA. Anant's nurse today, WILLIAM Harrell, has been working hard to keep him comfortable. It's likely that Anant will remain here for end of life care. Dr. Loyola and Lela Rodriguez NP, from Palliative continue to visit Anant.
[2025-01-17] MEDS: Scopolamine 1 MG/3 DAYS PATCH TD (17:08)
[2025-01-18] MEDS: LORazepam 2 MG/ML VIAL IV/SC ×2 (02:17→14:22)
[2025-01-18] MEDS: Normal Saline Flush 10 ML SYR IVP ×3 (02:18→14:22)
[2025-01-18] MEDS: fentaNYL 100 MCG PATCH 200 MCG TD (07:53)
--- NOTE | 2025-01-18 09:40 | PDOC.CMPRO ---
Date of service: 01/18/25 Time of Service: 09:40 Care Management Progress Note Progress Note Text Progress Note Text: Anant was lying in bed with his eyes open when CM met with him. He appeared calm and comfortable. This morning his nurse reported that he reacted strongly when staff attempted to reposition him, but otherwise has not been talking. CM spoke to him and he did not respond either in expression or verbally. His nurse reported that based on his obvious discomfort this morning with movement, she was increasing his hydromorphone drip to 5 mg/hr from 4 mg/hr. Palliative Care provider came to see Anant today and spent some time with him. She noted that he was tachypneic and suggested he receive a dose of Ativan, which was done. Discharge Potential Discharge Needs: Other (on comfort measures) Plan: Anant will likely remain at [facility] for end of life care. He does not have a 24/7 caregiver so would be unable to discharge home on hospice and does not have funds for a SNF. CM will continue to provide support to Anant through this difficult period. Social Determinants of Health Screening Social Determinants of Health last assessed: 01/18/25 Will the Patient Participate in the Screening?: Unable to obtain Do you worry about having a steady place to live?: no Problems where you live: no known problems In the past 12 months, have you had to go without electric, gas, oil or water in your home?: yes Have you or anyone in your house had to go without enough food to eat?: yes 1. Within the past 12 months, we worried whether our food would run out before we got money to buy more.: Don't know/refused 2. Within the past 12 months, the food we bought just didn't last and we didn't have money to get more.: Don't know/refused Referred to:: Not Applicable Has lack of transportation kept you from medical appointments or from doing things needed for daily living?: yes Has anyone in your life made you feel unsafe or unsupported?: no How hard is it for you to pay for the very basics like food, housing, medical care, and heating? Would you say it is:: Not hard at all Do you want help finding or keeping work or a job?: I do not need or want help If for any reason you need help with day-to-day activities such as bathing, preparing meals, shopping, managing finances, etc., do you get the help you need?: I don?t need any help How often do you feel lonely or isolated from those around you?: Sometimes Do you speak a language other than Uzbek at home?: Yes Does the patient want assistance with any of the above?: Yes Health Related Social Needs Health related social needs: food insecurity (Z59.41), transportation insecurity (Z59.82), material hardship(utilities) (Z59.12), feeling lonely/isolated (Z60.8) and education (Z55.6)
--- NOTE | 2025-01-18 10:27 | TELEFU_ITS ---
Date of service: 01/18/25 Time of Service: 10:28 Nutrition Note NOTE: No diet order currently - pt on FIREWORKS INSPECTOR no aggressive nutrition interventions planned. Time Spent in Nutritional Counseling and Treatment: 0
--- NOTE | 2025-01-18 10:27 | W.NUTRFU ---
Date of service: 01/18/25 Time of Service: 10:28 Nutrition Note NOTE: No diet order currently - pt on MEDICAL DEVICE SALES REPRESENTATIVE no aggressive nutrition interventions planned. Time Spent in Nutritional Counseling and Treatment: 0
--- NOTE | 2025-01-18 11:14 | NUR.NOTE ---
Nursing Note: Pt is non responsive until attempting cares, ten yells to leave him alone and that he will kill you. Cares coordinated with technical support assistant to take as little amt of time possible to wash and change linens, change drsg.
--- NOTE | 2025-01-18 11:23 | PGE_ITS ---
Date of Service Date of service: 01/18/25 Time of Service: 11:23 Assessment and Plan Assessment and plan (1) Comfort measures only status: Status: Acute Assessment and plan: - Palliative care discussed with the patient's decision maker yesterday afternoon and formally transition him to comfort measures only -Discontinue vital signs, cluster care -Continue fentanyl patch and comfort measure directed Dilaudid pump -See below for complete details of patients medical conditions and hospital course leading to RAKER BUFFING WHEEL status (2) Intractable pain: Status: Acute Assessment and plan: -continue fentanyl patch 200mcg Q48hrs -discontinue PO oxycontin 80mg Q8hr, PO oxycodone 15-30mg Q3hr PRN and PRN IV morphine 6mg Q2hrs -AM 01/16 started dilaudid pump 1mg/hr with 0.5mg Q15min PRN -Dilaudid pump increased to 2 mg/h with 0.5 mg every 15 as needed -Attempted to discuss patients worsening condition, but he was understandably withdrawn on 01/15 -Based on his current wishes, the patient is essentially a no escalation of care; he remains a DNR/DNI, declined pressors and central line on admission, but we are continuing current medications including but not limited to antibiotics, midodrine, and IV fluids -As noted in subjective, discussed pain regimen with the patient, leading to above mentioned changes. Also discussed transition of p.o. meds to IV including doxycycline and midodrine to which the patient ultimately shook his head no. -With his current regimen, he is essentially RAKER BUFFING WHEEL/hospice (with the exception of currently continuing p.o. Doxy, IV fluids and midodrine). I referred to previous conversation I had with the patient regarding his primary wishes to not go to penitentiary or other facility for end-of-life, and I reassured him that we would continue his care here at [facility] to which he expressed gratitude. -As of a.m. 01/17/2025 patient no longer able to take any p.o. medications, and while confused was able to clearly state he did not want to take any more of his p.o. medications, did not want his vitals to be checked, and did not want to be moved for any dressing changes given significant discomfort and pain. At this time, without the patient stating the exact words, he is essentially RAKER BUFFING WHEEL status as all known comfort directed medications and treatments have been discontinued at the request of the patient (3) Hypercalcemia: Status: Acute (4) Hypokalemia: Status: Acute (5) Primary cancer of anal canal: Status: Chronic Assessment and plan: -Stage IV with advanced disease and intractable pain. (6) Osteomyelitis, pelvis: Status: Chronic Assessment and plan: -Continueed doxycycline and IV fluids through transition to RAKER BUFFING WHEEL which was PM 01/17 (7) Acute DVT (deep venous thrombosis): Status: Chronic Assessment and plan: -eliquis discontinued as per RAKER BUFFING WHEEL status (8) COPD (chronic obstructive pulmonary disease): Status: Chronic Assessment and plan: Nebulizer treatments as needed. Patient does continue to smoke tobacco but less then a daily basis. (9) Smoker: Status: Chronic Assessment and plan: Nicotine patch for comfort. (10) Hypothyroidism (acquired): Status: Chronic Assessment and plan: -synthroid discontinued as per RAKER BUFFING WHEEL status (11) Discharge planning issues: Status: Acute Assessment and plan: -patient likely to pass here in the hospital Subjective Subjective Interval history since last seen: Patient appears comfortable and in no acute distress at this time Exam Narrative Exam Narrative: Chronically ill severely cachectic appearing gentleman laying in bed, older than stated age, somnolent but somewhat awakens to verbal stimuli, appears to have normal respirations, does not appear to be in any acute distress Objective Last Vital Signs Temp 100.0 F H 01/17/25 08:49 Pulse 54 L 01/17/25 08:49 Resp 28 H 01/17/25 08:49 BP 61/37 L 01/17/25 08:49 Pulse Ox 92 01/17/25 08:49 Time Spent with Patient Time Spent with Patient: >50 minutes Time was spent: preparing to see the patient(eg.review tests), obtaining and/or reviewing separately otained hiistory, ordering medications,tests, procedures, referring, communicating with other health pet care technician, indepentently interpreting results, counseling the patient and care coordination
[2025-01-18 13:34] VITALS: RESP 20
--- NOTE | 2025-01-18 13:46 | NUR.NOTE ---
Nursing Note: Pt does not follow commands or track with his eyes. He did look at this nurse when asked if he needed more pain control. He was tachypneic at the time, decision made to increase basal rate to 5 mg/hr. Will monitor closely for effect.
[2025-01-18] MEDS: Hyoscyamine 0.125 MG SL/ORAL/CHEW SL (14:21)
--- NOTE | 2025-01-18 14:25 | W.PALPGNOTE ---
Date of service: 01/18/25 Time of Service: 14:25 Assessment and Plan Assessment and plan (1) Comfort measures only status: Status: Acute Assessment and plan: On FOREST FIRE MANAGEMENT OFFICER status. He is on a hydromorphone pump for pain, recently increased to 5 mg/hr. He appears tachypneic, nursing to give lorazepam dose and monitor. He also has increased respiratory secretions- has scop patch in place, nursing to give hyoscyamine as well. Palliative to continue to follow. (2) Intractable pain: Status: Acute Assessment and plan: -continue fentanyl patch 200mcg Q48hrs He is currently on hydromorphone pump as above. Continue to titrate for comfort. (3) Hypercalcemia: Status: Acute (4) Hypokalemia: Status: Acute (5) Primary cancer of anal canal: Status: Chronic Assessment and plan: -Stage IV with advanced disease and intractable pain. (6) Osteomyelitis, pelvis: Status: Chronic Assessment and plan: No longer receiving Abx. Flagyl crushed to wound for odor/comfort. (7) Acute DVT (deep venous thrombosis): Status: Chronic Assessment and plan: -eliquis discontinued as per FOREST FIRE MANAGEMENT OFFICER status (8) COPD (chronic obstructive pulmonary disease): Status: Chronic Assessment and plan: Tachynepic, as above. Continue hydromorphone pump, titrate as needed. Nursing to give lorazepam PRN. (9) Smoker: Status: Chronic Assessment and plan: Nicotine patch for comfort. (10) Hypothyroidism (acquired): Status: Chronic Assessment and plan: -synthroid discontinued as per FOREST FIRE MANAGEMENT OFFICER status (11) Discharge planning issues: Status: Acute Assessment and plan: Plan is for FOREST FIRE MANAGEMENT OFFICER through EOL at [facility]. Subjective Subjective Interval history since last seen: Anant was seen in his room. He was alone at the time of the visit. His hydromorphone pump was recently increased to 5 mg/hr. He was laying in bed with eyes open for most of the visit. He does not attempt to answer questions, unsure if he is able to communicate. His nurse reports that he called out with wound care. He appears tachypneic with a RR of 32. Exam Narrative Exam Narrative: General: older adult man, cachectic, skin is ashen, eyes open intermittently, does not attempt communication HEENT: temporal wasting, atraumatic Resp: tachypneic, RR 32 GI: abd flat, soft. Ext: warm, +muscle atrophy, trace pedal edema bilaterally. Objective Last Vital Signs Temp 37.8 C H 01/17/25 08:49 Pulse 54 L 01/17/25 08:49 Resp 20 01/18/25 13:34 BP 61/37 L 01/17/25 08:49 Pulse Ox 92 01/17/25 08:49
[2025-01-18 14:27] VITALS: RESP 18
--- NOTE | 2025-01-18 14:59 | CHAPLAIN ---
Anant remains unresponsive, although his nurse said he called out while he was receiving care this morning. His eyes are open today, and he is staring ahead. He didn't look at me when I spoke to him. His breathing is shallow, with more gurgling than yesterday. Three family members visited yesterday. I haven't seen any today. Dr. Loyola from Palliative Care saw him this morning. I plan to spend some more time in his room this afternoon.
--- NOTE | 2025-01-18 15:03 | NUR.NOTE ---
Nursing Note: Pt's brother Echeverria here to visit, updated, encouraged to ask questions.
--- NOTE | 2025-01-19 09:30 | PGE_ITS ---
Date of Service Date of service: 01/19/25 Time of Service: 09:30 Assessment and Plan Assessment and plan (1) Comfort measures only status: Status: Acute Assessment and plan: - Palliative care discussed with the patient's decision maker on the afternoon of 01/17 and formally transition him to comfort measures only -Discontinue vital signs, cluster care -Continue fentanyl patch and comfort measure directed Dilaudid pump -See below for complete details of patients medical conditions and hospital course leading to GENERAL PASSENGER AGENT status (2) Intractable pain: Status: Acute Assessment and plan: -continue fentanyl patch 200mcg Q48hrs -discontinue PO oxycontin 80mg Q8hr, PO oxycodone 15-30mg Q3hr PRN and PRN IV morphine 6mg Q2hrs -AM 01/16 started dilaudid pump 1mg/hr with 0.5mg Q15min PRN -Dilaudid pump increased to 2 mg/h with 0.5 mg every 15 as needed -Attempted to discuss patients worsening condition, but he was understandably withdrawn on 01/15 -Based on his current wishes, the patient is essentially a no escalation of care; he remains a DNR/DNI, declined pressors and central line on admission, but we are continuing current medications including but not limited to antibiotics, midodrine, and IV fluids -As noted in subjective, discussed pain regimen with the patient, leading to above mentioned changes. Also discussed transition of p.o. meds to IV including doxycycline and midodrine to which the patient ultimately shook his head no. -With his current regimen, he is essentially GENERAL PASSENGER AGENT/hospice (with the exception of currently continuing p.o. Doxy, IV fluids and midodrine). I referred to previous conversation I had with the patient regarding his primary wishes to not go to [facility]pc or other facility for end-of-life, and I reassured him that we would continue his care here at [facility] to which he expressed gratitude. -As of a.m. 01/17/2025 patient no longer able to take any p.o. medications, and while confused was able to clearly state he did not want to take any more of his p.o. medications, did not want his vitals to be checked, and did not want to be moved for any dressing changes given significant discomfort and pain. At this time, without the patient stating the exact words, he is essentially GENERAL PASSENGER AGENT status as all known comfort directed medications and treatments have been discontinued at the request of the patient (3) Hypercalcemia: Status: Acute (4) Hypokalemia: Status: Acute (5) Primary cancer of anal canal: Status: Chronic Assessment and plan: -Stage IV with advanced disease and intractable pain. (6) Osteomyelitis, pelvis: Status: Chronic Assessment and plan: -Continueed doxycycline and IV fluids through transition to GENERAL PASSENGER AGENT which was PM 01/17 (7) Acute DVT (deep venous thrombosis): Status: Chronic Assessment and plan: -eliquis discontinued as per GENERAL PASSENGER AGENT status (8) COPD (chronic obstructive pulmonary disease): Status: Chronic Assessment and plan: Nebulizer treatments as needed. Patient does continue to smoke tobacco but less then a daily basis. (9) Smoker: Status: Chronic Assessment and plan: Nicotine patch for comfort. (10) Hypothyroidism (acquired): Status: Chronic Assessment and plan: -synthroid discontinued as per GENERAL PASSENGER AGENT status (11) Discharge planning issues: Status: Acute Assessment and plan: -patient likely to pass here in the hospital Subjective Subjective Interval history since last seen: Patient appears comfortable and in no acute distress at this time Exam Narrative Exam Narrative: Chronically ill severely cachectic appearing gentleman laying in bed, older than stated age, somnolent but somewhat awakens to verbal stimuli, appears to have normal respirations, does not appear to be in any acute distress Objective Last Vital Signs Temp 100.0 F H 01/17/25 08:49 Pulse 54 L 01/17/25 08:49 Resp 18 01/18/25 14:27 BP 61/37 L 01/17/25 08:49 Pulse Ox 92 01/17/25 08:49 Time Spent with Patient Time Spent with Patient: >50 minutes Time was spent: preparing to see the patient(eg.review tests), obtaining and/or reviewing separately otained hiistory, ordering medications,tests, procedures, referring, communicating with other health daycare manager, indepentently interpreting results, counseling the patient and care coordination
--- NOTE | 2025-01-19 12:25 | CMPROGNOTE_ITS ---
Date of service: 01/19/25 Time of Service: 12:25 Care Management Progress Note Progress Note Text Progress Note Text: Ronaldo was resting comfortably when CM met with him. He did have one eye open and appeared to have a change in his facial expression when CM was talking to him, but he did not respond verbally. He was seen by palliative care today, who agreed that he appears to be comfortable. He will remain at [facility] for end of life care. CM will continue to follow. Discharge Potential Discharge Needs: Other (end of life care) Plan: Anant will likely remain at [facility] for end of life care. He does not have a 24/7 caregiver so would be unable to discharge home on hospice and does not have funds for a SNF. CM will continue to provide support to Anant through this difficult period. Social Determinants of Health Screening Social Determinants of Health last assessed: 01/19/25 Will the Patient Participate in the Screening?: Unable to obtain Do you worry about having a steady place to live?: no Problems where you live: no known problems In the past 12 months, have you had to go without electric, gas, oil or water in your home?: yes Have you or anyone in your house had to go without enough food to eat?: yes 1. Within the past 12 months, we worried whether our food would run out before we got money to buy more.: Don't know/refused 2. Within the past 12 months, the food we bought just didn't last and we didn't have money to get more.: Don't know/refused Referred to:: Not Applicable Has lack of transportation kept you from medical appointments or from doing things needed for daily living?: yes Has anyone in your life made you feel unsafe or unsupported?: no How hard is it for you to pay for the very basics like food, housing, medical care, and heating? Would you say it is:: Not hard at all Do you want help finding or keeping work or a job?: I do not need or want help If for any reason you need help with day-to-day activities such as bathing, preparing meals, shopping, managing finances, etc., do you get the help you need?: I don?t need any help How often do you feel lonely or isolated from those around you?: Sometimes Do you speak a language other than Albanian at home?: Yes Does the patient want assistance with any of the above?: Yes Health Related Social Needs Health related social needs: food insecurity (Z59.41), transportation insecurity (Z59.82), material hardship(utilities) (Z59.12), feeling lonely/isolated (Z60.8) and education (Z55.6)
--- NOTE | 2025-01-19 16:06 | W.PALPGNOTE ---
Date of service: 01/19/25 Time of Service: 16:07 Assessment and Plan Assessment and plan (1) Comfort measures only status: Status: Acute Assessment and plan: On REAL ESTATE AGENCY LICENSEE status. He is on a hydromorphone pump for pain, recently increased to 6 mg/hr. Respirations appear even and unlabored. He does not appear to be in distress. Palliative to continue to follow. (2) Intractable pain: Status: Acute Assessment and plan: -continue fentanyl patch 200mcg Q48hrs He is currently on hydromorphone pump as above. Continue to titrate for comfort. (3) Hypercalcemia: Status: Acute (4) Hypokalemia: Status: Acute (5) Primary cancer of anal canal: Status: Chronic Assessment and plan: -Stage IV with advanced disease and intractable pain. (6) Osteomyelitis, pelvis: Status: Chronic Assessment and plan: No longer receiving Abx. Flagyl crushed to wound for odor/comfort. (7) Acute DVT (deep venous thrombosis): Status: Chronic Assessment and plan: No longer on eliquis due to REAL ESTATE AGENCY LICENSEE status (8) COPD (chronic obstructive pulmonary disease): Status: Chronic Assessment and plan: Continue hydromorphone pump, titrate as needed. Nursing to give lorazepam PRN. (9) Smoker: Status: Chronic Assessment and plan: Nicotine patch for comfort. (10) Hypothyroidism (acquired): Status: Chronic Assessment and plan: No longer on synthroid due to REAL ESTATE AGENCY LICENSEE status (11) Discharge planning issues: Status: Acute Assessment and plan: Plan is for REAL ESTATE AGENCY LICENSEE through [facility] at [facility]. Subjective Subjective Interval history since last seen: Anant was seen in his room for Palliative f/u. He was alone at the time of the visit. He is on comfort care, his nurse just increased his hydromorphone pump to 6mg/hr. His L eye was open during the visit. He did not appear to be able to communicate. Exam Narrative Exam Narrative: General: older adult man, severely cachectic, skin is pale/ashen, L eye open, does not attempt communication HEENT: temporal wasting, atraumatic Resp: respirations appear even and unlabored. GI: abd flat, soft. Ext: warm, +muscle atrophy, trace pedal edema bilaterally. Objective Last Vital Signs Temp 37.8 C H 01/17/25 08:49 Pulse 54 L 01/17/25 08:49 Resp 18 01/18/25 14:27 BP 61/37 L 01/17/25 08:49 Pulse Ox 92 01/17/25 08:49
--- NOTE | 2025-01-19 18:13 | CHAPLAIN ---
I've spent time in Anant's room off and on today. He didn't seem to have any visitors today. His eyes are open at times, but he doesn't not seem responsive to people's voices. He does appear to be comfortable. He continues on Comfort Measures.
[2025-01-19] MEDS: LORazepam 2 MG/ML VIAL IV/SC (18:37)
[2025-01-19] MEDS: Normal Saline Flush 10 ML SYR IVP (19:48)
[2025-01-20] VITALS (7 sets, daily range): RESP 16
[2025-01-20] MEDS: fentaNYL 100 MCG PATCH 200 MCG TD (08:41)
--- NOTE | 2025-01-20 09:43 | W.PM.PROGNOT ---
Date of Service Date of service: 01/20/25 Time of Service: 09:43 Assessment and Plan Assessment and plan (1) Comfort measures only status: Status: Acute Assessment and plan: - Palliative care discussed with the patient's decision maker on the afternoon of 01/17 and formally transition him to comfort measures only -Discontinue vital signs, cluster care -Continue fentanyl patch and comfort measure directed Dilaudid pump -See below for complete details of patients medical conditions and hospital course leading to UNIVERSITY RELATIONS VICE PRESIDENT status (2) Intractable pain: Status: Acute Assessment and plan: -continue fentanyl patch 200mcg Q48hrs -discontinue PO oxycontin 80mg Q8hr, PO oxycodone 15-30mg Q3hr PRN and PRN IV morphine 6mg Q2hrs -AM 01/16 started dilaudid pump 1mg/hr with 0.5mg Q15min PRN -Dilaudid pump increased to 2 mg/h with 0.5 mg every 15 as needed -Attempted to discuss patients worsening condition, but he was understandably withdrawn on 01/15 -Based on his current wishes, the patient is essentially a no escalation of care; he remains a DNR/DNI, declined pressors and central line on admission, but we are continuing current medications including but not limited to antibiotics, midodrine, and IV fluids -As noted in subjective, discussed pain regimen with the patient, leading to above mentioned changes. Also discussed transition of p.o. meds to IV including doxycycline and midodrine to which the patient ultimately shook his head no. -With his current regimen, he is essentially UNIVERSITY RELATIONS VICE PRESIDENT/hospice (with the exception of currently continuing p.o. Doxy, IV fluids and midodrine). I referred to previous conversation I had with the patient regarding his primary wishes to not go to group home or other facility for end-of-life, and I reassured him that we would continue his care here at [facility] to which he expressed gratitude. -As of a.m. 01/17/2025 patient no longer able to take any p.o. medications, and while confused was able to clearly state he did not want to take any more of his p.o. medications, did not want his vitals to be checked, and did not want to be moved for any dressing changes given significant discomfort and pain. At this time, without the patient stating the exact words, he is essentially UNIVERSITY RELATIONS VICE PRESIDENT status as all known comfort directed medications and treatments have been discontinued at the request of the patient (3) Hypercalcemia: Status: Acute (4) Hypokalemia: Status: Acute (5) Primary cancer of anal canal: Status: Chronic Assessment and plan: -Stage IV with advanced disease and intractable pain. (6) Osteomyelitis, pelvis: Status: Chronic Assessment and plan: -Continueed doxycycline and IV fluids through transition to UNIVERSITY RELATIONS VICE PRESIDENT which was PM 01/17 (7) Acute DVT (deep venous thrombosis): Status: Chronic Assessment and plan: -eliquis discontinued as per UNIVERSITY RELATIONS VICE PRESIDENT status (8) COPD (chronic obstructive pulmonary disease): Status: Chronic Assessment and plan: Nebulizer treatments as needed. Patient does continue to smoke tobacco but less then a daily basis. (9) Smoker: Status: Chronic Assessment and plan: Nicotine patch for comfort. (10) Hypothyroidism (acquired): Status: Chronic Assessment and plan: -synthroid discontinued as per UNIVERSITY RELATIONS VICE PRESIDENT status (11) Discharge planning issues: Status: Acute Assessment and plan: -patient likely to pass here in the hospital Subjective Subjective Interval history since last seen: Patient appears comfortable and in no acute distress at this time Exam Narrative Exam Narrative: Chronically ill severely cachectic appearing gentleman laying in bed, older than stated age, somnolent but somewhat awakens to verbal stimuli, appears to have normal respirations, does not appear to be in any acute distress Objective Last Vital Signs Temp 100.0 F H 01/17/25 08:49 Pulse 54 L 01/17/25 08:49 Resp 16 01/20/25 05:39 BP 61/37 L 01/17/25 08:49 Pulse Ox 92 01/17/25 08:49 Time Spent with Patient Time Spent with Patient: >50 minutes Time was spent: preparing to see the patient(eg.review tests), obtaining and/or reviewing separately otained hiistory, ordering medications,tests, procedures, referring, communicating with other health healthcare science specialist, indepentently interpreting results, counseling the patient and care coordination
[2025-01-20] MEDS: Scopolamine 1 MG/3 DAYS PATCH TD (17:44)
[2025-01-21 02:13] VITALS: RESP 16
--- NOTE | 2025-01-21 09:10 | PGE_ITS ---
Date of Service Date of service: 01/21/25 Time of Service: 09:11 Assessment and Plan Assessment and plan (1) Comfort measures only status: Status: Acute Assessment and plan: -On admission 01/15 attempted to discuss patients worsening condition, but he was understandably withdrawn on 01/15 -On admission his desires were c/w no escalation of care; he remained a DNR/DNI, declined pressors and central line on admission, but continued current medications including but not limited to antibiotics, midodrine, and IV fluids -Palliative care discussed with the patient's decision maker on the afternoon of 01/17 and formally transition him to comfort measures only -Discontinue vital signs, cluster care -Continue fentanyl patch and comfort measures directed Dilaudid pump, no change today -See below for complete details of patients medical conditions and hospital course leading to MACHINE SILVER STRIPPER status (2) Intractable pain: Status: Acute Assessment and plan: fentanyl patch and hydromorphone as above along with comfort medications. (3) Primary cancer of anal canal: Status: Chronic Assessment and plan: -Stage IV with advanced disease and intractable pain as above (4) Osteomyelitis, pelvis: Status: Chronic Assessment and plan: -now discontinued doxycycline and IV fluids wth transition to MACHINE SILVER STRIPPER (5) Acute DVT (deep venous thrombosis): Status: Chronic Assessment and plan: -eliquis discontinued as per MACHINE SILVER STRIPPER status (6) Smoker: Status: Chronic Assessment and plan: Nicotine patch for comfort. (7) Hypothyroidism (acquired): Status: Chronic Assessment and plan: -synthroid discontinued as per MACHINE SILVER STRIPPER status (8) Discharge planning issues: Status: Acute Assessment and plan: -patient likely to pass here in the hospital. He did not want SNF placement and we will respect this Subjective Subjective Patient reports: no new complaints; denies diarrhea, vomiting or fever Interval history since last seen: 24 hr: No events Not speaking this morning. Not taking po Exam Narrative Exam Narrative: Chronically ill severely cachectic appearing gentleman laying in bed, older than stated age, somnolent but somewhat opens eyes verbal stimuli, appears to have normal respirations, lungs clear, heart regular, does not appear to be in any acute distress Objective Last Vital Signs Temp 37.8 C H 01/17/25 08:49 Pulse 54 L 01/17/25 08:49 Resp 16 01/21/25 02:13 BP 61/37 L 01/17/25 08:49 Pulse Ox 92 01/17/25 08:49 Time Spent with Patient Time Spent with Patient: 25-34 minutes Time was spent: preparing to see the patient(eg.review tests), referring, communicating with other health rn care transition and care coordination
[2025-01-21] MEDS: Refresh PLUS Eye Drops 0.4ml 2 EACH OU (12:14)
[2025-01-21] MEDS: Haloperidol 5 MG/ML VIAL IM (12:14)
[2025-01-21] MEDS: LORazepam 2 MG/ML VIAL IV/SC ×2 (12:15→23:42)
[2025-01-21] MEDS: Normal Saline Flush 10 ML SYR IVP (23:42)
--- NOTE | 2025-01-22 07:37 | NUR.NOTE ---
pt sleeping soundly at this time, occassioally opens eyes but no verbal response. IV dilaudid gtt running at 12mg/hr. No evidence of pain/restlessness/agitation. RR of 12 at this time. Leigh to gravity with no output at this time. PIV intact to RAC, ostomy bag intact with minimal drainage. Pt on specialty bed for repositioning. Nursing Note:
[2025-01-22] MEDS: fentaNYL 100 MCG PATCH 200 MCG TD (07:46)
--- NOTE | 2025-01-22 08:54 | PDOC.CMPRO ---
Date of service: 01/22/25 Time of Service: 08:54 Care Management Progress Note Progress Note Text Progress Note Text: Ronaldo is here for end of life care. He is lying in bed, eyes appear dry and are partially open. Ronaldo appears comfortable, he does not respond to voice or touch. Discharge Potential Discharge Needs: Other (End of life care, Palliative to follow) Plan: Anant will remain at [facility] for end of life care. He does not have a 24/7 caregiver so would be unable to discharge home on hospice and does not have funds for a SNF. will continue to provide support to Anant through this difficult period. Social Determinants of Health Screening Social Determinants of Health last assessed: 01/23/25 Will the Patient Participate in the Screening?: Unable to obtain Do you worry about having a steady place to live?: no Problems where you live: no known problems In the past 12 months, have you had to go without electric, gas, oil or water in your home?: yes Have you or anyone in your house had to go without enough food to eat?: yes 1. Within the past 12 months, we worried whether our food would run out before we got money to buy more.: Don't know/refused 2. Within the past 12 months, the food we bought just didn't last and we didn't have money to get more.: Don't know/refused Referred to:: Not Applicable Has lack of transportation kept you from medical appointments or from doing things needed for daily living?: yes Has anyone in your life made you feel unsafe or unsupported?: no How hard is it for you to pay for the very basics like food, housing, medical care, and heating? Would you say it is:: Not hard at all Do you want help finding or keeping work or a job?: I do not need or want help If for any reason you need help with day-to-day activities such as bathing, preparing meals, shopping, managing finances, etc., do you get the help you need?: I don?t need any help How often do you feel lonely or isolated from those around you?: Sometimes Do you speak a language other than Cambodian at home?: Yes Does the patient want assistance with any of the above?: Yes Health Related Social Needs Health related social needs: food insecurity (Z59.41), transportation insecurity (Z59.82), material hardship(utilities) (Z59.12), feeling lonely/isolated (Z60.8) and education (Z55.6)
--- NOTE | 2025-01-22 10:14 | PGE_ITS ---
Assessment and Plan Assessment and plan (1) Comfort measures only status: Status: Acute Assessment and plan: -On admission 01/15 attempted to discuss patients worsening condition, but he was understandably withdrawn on 01/15 -On admission his desires were c/w no escalation of care; he remained a DNR/DNI, declined pressors and central line on admission, but continued current medications including but not limited to antibiotics, midodrine, and IV fluids -Palliative care discussed with the patient's decision maker on the afternoon of 01/17 and formally transition him to comfort measures only -Discontinue vital signs, cluster care -Continue fentanyl patch and comfort measures directed Dilaudid pump, no change today -See below for complete details of patients medical conditions and hospital course leading to CESSATION SYSTEMS OUTREACH SPECIALIST status (2) Intractable pain: Status: Acute Assessment and plan: fentanyl patch and hydromorphone as above along with comfort medications. (3) Primary cancer of anal canal: Status: Chronic Assessment and plan: -Stage IV with advanced disease and intractable pain as above (4) Osteomyelitis, pelvis: Status: Chronic Assessment and plan: -now discontinued doxycycline and IV fluids wth transition to CESSATION SYSTEMS OUTREACH SPECIALIST (5) Acute DVT (deep venous thrombosis): Status: Chronic Assessment and plan: -eliquis discontinued as per CESSATION SYSTEMS OUTREACH SPECIALIST status (6) Smoker: Status: Chronic Assessment and plan: Nicotine patch for comfort. (7) Hypothyroidism (acquired): Status: Chronic Assessment and plan: -synthroid discontinued as per CESSATION SYSTEMS OUTREACH SPECIALIST status (8) Discharge planning issues: Status: Acute Assessment and plan: -patient likely to pass here in the hospital. He did not want SNF placement and we will respect this Objective Last Vital Signs Temp 37.8 C H 01/17/25 08:49 Pulse 54 L 01/17/25 08:49 Resp 16 01/21/25 02:13 BP 61/37 L 01/17/25 08:49 Pulse Ox 92 01/17/25 08:49
[2025-01-22 11:39] VITALS: RESP 16
--- NOTE | 2025-01-22 13:39 | W.PALPGNOTE ---
Date of service: 01/22/25 Time of Service: 13:39 Assessment and Plan Assessment and plan (1) Comfort measures only status: Status: Acute Assessment and plan: Ronaldo will remain at [facility] through his EOL - he appears comfortable today - continue hydromorphone pump 6mg/hr rate, encouraged bolus w/any care, repositioning etc (2) End of life care: Status: Acute Assessment and plan: Gonzálezs life expectancy remains to be hours to days he has been non-communicative for several days urine output changes, w/700mL overnight, limited since that time, limited BM; no oral intake for days (3) Intractable pain: Status: Acute Assessment and plan: Please consider bolus prior to any care - Gonzálezs pain has been uncontrolled for several months, he does grimace/groan w/any repositioning care, even if he stops grimacing/groaning immediately, it should still be anticipated that he is in pain and we should pre-mediate in attempts to reduce his suffering (4) Palliative care encounter: Status: Acute Assessment and plan: PC will continue to follow Mr. Esqueda through his EOL, next available on Wed - to call PC office with any concerns (5) Primary cancer of anal canal: Status: Chronic (6) Osteomyelitis, pelvis: Status: Chronic Subjective Subjective Interval history since last seen: Mr. Higgins remains hospitalized for EOL care at [facility]; initial hospitalization for intractable pain 2/2 osteomyelitis and SCC of anus - last seen by PC 01/19 Ronaldo has remained comfortable, hydromorphone pump remains on 6mg/hr, has not required bolus dosing, appears comfortable throughout most of the time - changes in pain occasional w/repositioning, will alert w/grimace or groan. he seems to recover immediately in these instances - he is tolerating oral care and personal care appropriately, will have low threshold for bolus dosing Resp have remained unlabored and even, no apnea periods. no audible rattles or changes in secretions. scopolamine patch in place Urine output: overnight 700ccs, sig more than previously; since then, only 25ccs today. Bowels: colostomy bag, small scant amounts Anxiety/Agitation: has required a few doses of lorazepam 0.5-1mg PRN, not daily, never more than BID He has remained sleeping, non-verbal, no interactions. will occasionally open eyes intermittently, but not attempting to communicate. no visitors today Exam Narrative Exam Narrative: General: older adult man, cachecix, eyes open intermittently, does not attempt communication; oral care during visit w/o distress HEENT: temporal wasting, atraumatic; Resp: unlabored, even, shallow, no audible wheeze or rattle Skin: warm to touch, no diaphoresis Psych: does not respond to light touch, elevated voice volume Objective Last Vital Signs Temp 100.0 F H 01/17/25 08:49 Pulse 54 L 01/17/25 08:49 Resp 16 01/22/25 11:39 BP 61/37 L 01/17/25 08:49 Pulse Ox 92 01/17/25 08:49
--- NOTE | 2025-01-22 15:57 | PGE_ITS ---
Date of Service Date of service: 01/22/25 Time of Service: 09:15 Assessment and Plan Assessment and plan (1) Comfort measures only status: Status: Acute Assessment and plan: -On admission 01/15 attempted to discuss patients worsening condition, but he was understandably withdrawn on 01/15 -On admission his desires were c/w no escalation of care; he remained a DNR/DNI, declined pressors and central line on admission, but continued current medications including but not limited to antibiotics, midodrine, and IV fluids -Palliative care discussed with the patient's decision maker on the afternoon of 01/17 and formally transition him to comfort measures only -Discontinue vital signs, cluster care -Continue fentanyl patch and comfort measures directed Dilaudid pump, no change again today -See below for complete details of patients medical conditions and hospital course leading to SCREEN HANDLER status (2) Intractable pain: Status: Acute Assessment and plan: fentanyl patch and hydromorphone as above along with comfort medications. He appears comfortable on this regimen, no change. (3) Primary cancer of anal canal: Status: Chronic Assessment and plan: -Stage IV with advanced disease and intractable pain as above (4) Osteomyelitis, pelvis: Status: Chronic Assessment and plan: -now discontinued doxycycline and IV fluids wth transition to SCREEN HANDLER (5) Acute DVT (deep venous thrombosis): Status: Chronic Assessment and plan: -eliquis discontinued as per SCREEN HANDLER status (6) Smoker: Status: Chronic Assessment and plan: Nicotine patch for comfort. (7) Hypothyroidism (acquired): Status: Chronic Assessment and plan: -synthroid discontinued as per SCREEN HANDLER status (8) Discharge planning issues: Status: Acute Assessment and plan: -patient likely to pass here in the hospital. He did not want SNF placement and we will respect this Subjective Subjective Patient reports: no new complaints; denies diarrhea, vomiting or fever Interval history since last seen: No events. Non-verbal. urine output decreasing Exam Narrative Exam Narrative: General: older adult man, cachectic, left eye opens intermittently, does not attempt communication, in no distress HEENT: temporal wasting, atraumatic; Resp: unlabored, even, shallow, no audible wheeze or rattle CV: regular Skin: warm to touch, no diaphoresis Psych: slight movement of face with touch, not to voice Objective Last Vital Signs Temp 37.8 C H 01/17/25 08:49 Pulse 54 L 01/17/25 08:49 Resp 16 01/22/25 11:39 BP 61/37 L 01/17/25 08:49 Pulse Ox 92 01/17/25 08:49 Time Spent with Patient Time Spent with Patient: <25 minutes Time was spent: obtaining and/or reviewing separately otained hiistory, referring, communicating with other health child day care provider and care coordination
[2025-01-22 16:29] VITALS: RESP 20
[2025-01-22 18:34] VITALS: RESP 16
[2025-01-22] MEDS: Normal Saline Flush 10 ML SYR IVP (20:56)
[2025-01-22] MEDS: LORazepam 2 MG/ML VIAL IV/SC (20:56)
[2025-01-23] MEDS: LORazepam 2 MG/ML VIAL IV/SC ×2 (02:15→06:30)
--- NOTE | 2025-01-23 09:43 | PDOC.CMPRO ---
Date of service: 01/23/25 Time of Service: 09:43 Care Management Progress Note Discharge Potential Discharge Needs: Other (end of life care) Anticipated Barriers to Discharge: Medical Status Plan: Anant will remain at [facility] for end of life care. He does not have a 24/7 caregiver so would be unable to discharge home on hospice and does not have funds for a SNF. will continue to provide support to Anant through this difficult period. Social Determinants of Health Screening Social Determinants of Health last assessed: 01/23/25 Will the Patient Participate in the Screening?: Unable to obtain Do you worry about having a steady place to live?: no Problems where you live: no known problems In the past 12 months, have you had to go without electric, gas, oil or water in your home?: yes Have you or anyone in your house had to go without enough food to eat?: yes 1. Within the past 12 months, we worried whether our food would run out before we got money to buy more.: Don't know/refused 2. Within the past 12 months, the food we bought just didn't last and we didn't have money to get more.: Don't know/refused Referred to:: Not Applicable Has lack of transportation kept you from medical appointments or from doing things needed for daily living?: yes Has anyone in your life made you feel unsafe or unsupported?: no How hard is it for you to pay for the very basics like food, housing, medical care, and heating? Would you say it is:: Not hard at all Do you want help finding or keeping work or a job?: I do not need or want help If for any reason you need help with day-to-day activities such as bathing, preparing meals, shopping, managing finances, etc., do you get the help you need?: I don?t need any help How often do you feel lonely or isolated from those around you?: Sometimes Do you speak a language other than Kinyarwanda at home?: Yes Does the patient want assistance with any of the above?: Yes Health Related Social Needs Health related social needs: food insecurity (Z59.41), transportation insecurity (Z59.82), material hardship(utilities) (Z59.12), feeling lonely/isolated (Z60.8) and education (Z55.6)
--- NOTE | 2025-01-23 09:44 | W.PM.DDS ---
Date of service: 01/23/25 Time of Service: 09:44 Discharge Plan Disposition Patient Disposition: Condition: Deteriorating Discharge Details Reason For Visit: Intractable pain,Stage IV squamous cell carcinoma Admit Date/Time: 01/13/25 23:02 Admit Provider: Akhil Flower Attending Provider: Akhil Flower Primary Care Provider: Sha Ramos Hospital Course Hospital Course: This is a 64-year-old gentleman who has advanced metastatic renal cell carcinoma of the anus on only palliative care treatment presented to the ED on 01/13/25 for evaluation of increased confusion, severe intractable back pain. Workup in the ED demonstrated osteomyelitis of the pelvis, ?hypokalemia, hypercalcemia. The patient was admitted to the medical surgical floor for treatment and further management. The patient was treated with antibiotics, IVF and electrolytes were replenished. S/p palliative care consult the patient became [facility], medical treatments were stopped and hydromorphone pump started.The patient witnessed to be in cardio-respiratory arrest at 09:25 on 01/23/2025 by the provider and pronounced at 09:30 on 01/23/2025. Discussed with Dr. Freeman Pullman Meds and New Rx's Prescriptions: No Action acetaminophen 325 mg tablet 1,000 mg PO TID Qty: 300 12RF Lactobacillus acidoph-L.bulgar [Floranex] 100 million cell granules in packet 1 packet PO DAILY Qty: 30 6RF polyethylene glycol 3350 17 gram powder in packet 17 g PO HS Qty: 325 12RF lidocaine 5 % cream 1 applic topical TID PRN (Reason: pain) Qty: 120 12RF oxycodone 15 mg tablet See Rx Instructions PO .q 3 h MDD 8 pills PRN (Reason: pain) Qty: 120 0RF Rx Instructions: 1-2 pills (15-30 mg) orally Q 3 H PRN; apixaban 5 mg tablet 5 mg PO BID Qty: 60 12RF Rx Instructions: Start 5/2 fentanyl 100 mcg/hr patch 72 hour 2 patch transdermal Q48H MDD 200 mcg 30 Days Qty: 30 0RF oxycodone [OxyContin] 80 mg tablet,oral only,ext.rel.12 hr 80 mg PO .q8 MDD 3 pills 30 Days Qty: 90 0RF Rx Instructions: Insurance insists on Oxycontin 80 mg pills. If totally not available, we need documentation; then Call us please to send in 40 mg pills. They will only cover another 20 days' of 40mg pills. Then we would need a new PA if 80 mg pills not available. If 80 mg pills ARE available, need to review with pt new SIG> lidocaine HCl [Glydo] 2 % jelly in applicator 1 applic topical QD-TID PRN (Reason: pain) Qty: 500 12RF levothyroxine 100 mcg tablet 100 mcg PO DAILY Patient Comments: TAKE ONE TABLET BY MOUTH EVERY DAY doxycycline hyclate 100 mg Capsule 100 mg PO BID Qty: 60 1RF midodrine 2.5 mg Tablet 10 mg PO TID Qty: 90 1RF Dakin's Solution 0.5 % Solution 473 ml topical DIRECTED Qty: 473 12RF Rx Instructions: daily dressing changes Discharge Data Cause of : Squamous cell carcinoma of anus Discharge Date/Time-TO BE ENTERED AT DEPARTURE: 01/23/25 11:07 Discharge Sum: Prov Provider Primary care physician: Richard Dalton Admitting clinician: Akhil Flower Attending physician on admission: Christian Freeman Consults: 01/15/25 14:49 Palliative Care Consult [CONS] Routine Consultation Status:: Follow-up needed Clarification:: Manage/follow per spec. Reason for consult:: End of life, patient still DNR/DNI, no pressors or central line, but should transition to Hospice/[facility] Pronouncing clinician: Meme Day Discharge Sum: Diag PCOD Cause of : Squamous cell carcinoma of anus Contributing Factors (1) Comfort measures only status: (2) Intractable pain: (3) Primary cancer of anal canal: (4) Osteomyelitis, pelvis: (5) Acute DVT (deep venous thrombosis): (6) Smoker: (7) Hypothyroidism (acquired): (8) Discharge planning issues: Discharge Sum: Summary Date and Time Admission Date: 01/13/25 Date of : 01/23/25 Time of : 09:25 Additional Data Confirmation of as documented by pronouncing clinician: no pulse, no respirations, no heart sounds and pupils fixed and dilated Family: not available Attending/PCP notified?: Yes Attending Physician: Christian Freeman Was code activated?: No Autopsy requested?: No field examiner notified?: No Organ bank notified?: Yes Advance directives: Yes Hospice patient?: No
--- NOTE | 2025-01-23 11:02 | CMPROGNOTE_ITS ---
Date of service: 01/23/25 Time of Service: 11:02 Care Management Progress Note Progress Note Text Progress Note Text: Anant peacefully at 9:25 am and was pronounced at 9:30 am. [facility] will be providing services. Both his brother Sabas and [id number] Maame were notified by CM. Both declined to come to the hospital for a viewing. Social Determinants of Health Screening Social Determinants of Health last assessed: 01/23/25 Will the Patient Participate in the Screening?: Unable to obtain Do you worry about having a steady place to live?: no Problems where you live: no known problems In the past 12 months, have you had to go without electric, gas, oil or water in your home?: yes Have you or anyone in your house had to go without enough food to eat?: yes 1. Within the past 12 months, we worried whether our food would run out before we got money to buy more.: Don't know/refused 2. Within the past 12 months, the food we bought just didn't last and we didn't have money to get more.: Don't know/refused Referred to:: Not Applicable Has lack of transportation kept you from medical appointments or from doing things needed for daily living?: yes Has anyone in your life made you feel unsafe or unsupported?: no How hard is it for you to pay for the very basics like food, housing, medical care, and heating? Would you say it is:: Not hard at all Do you want help finding or keeping work or a job?: I do not need or want help If for any reason you need help with day-to-day activities such as bathing, preparing meals, shopping, managing finances, etc., do you get the help you need?: I don?t need any help How often do you feel lonely or isolated from those around you?: Sometimes Do you speak a language other than Cameroonian at home?: Yes Does the patient want assistance with any of the above?: Yes Health Related Social Needs Health related social needs: food insecurity (Z59.41), transportation insecurity (Z59.82), material hardship(utilities) (Z59.12), feeling lonely/isolated (Z60.8) and education (Z55.6)
== END 2025-01-23 11:07 | disposition expired | DRG 948 ==
LOC: ER 23:00 → EDHOLD 23:36 → ICU 01-14 09:20 → MS 01-16 17:02
PROVIDERS: Admitting Provider Family Medicine; Emergency Provider Emergency Medicine; PCP Physician Assistant; Responsible Provider Nurse Practitioner Acute Care; Visit Provider Family Medicine
DX: G89.3 Neoplasm related pain (acute) (chronic); C21.1 Malignant neoplasm of anal canal; C79.51 Secondary malignant neoplasm of bone; M86.68 Other chronic osteomyelitis, other site; Z68.1 Body mass index [BMI] 19.9 or less, adult; Z66 Do not resuscitate; Z51.5 Encounter for palliative care; I95.9 Hypotension, unspecified; E87.6 Hypokalemia; Z79.01 Long term (current) use of anticoagulants; J44.9 Chronic obstructive pulmonary disease, unspecified; F17.210 Nicotine dependence, cigarettes, uncomplicated; E03.9 Hypothyroidism, unspecified; R63.4 Abnormal weight loss; D72.829 Elevated white blood cell count, unspecified; Z79.2 Long term (current) use of antibiotics; Z91.148 Patient's other noncompliance with medication regimen for other reason; D50.9 Iron deficiency anemia, unspecified; F10.11 Alcohol abuse, in remission; Z92.3 Personal history of irradiation; E88.A Wasting disease (syndrome) due to underlying condition; Z43.3 Encounter for attention to colostomy; Z79.891 Long term (current) use of opiate analgesic; Z59.41 Food insecurity; Z59.82 Transportation insecurity; Z60.8 Other problems related to social environment; Z86.718 Personal history of other venous thrombosis and embolism
CPT/HCPCS: 00123; 36415; 51702; 51798; 80048; 80053; 85027; 87637; 93005; 96361; 96365; 96366; 96367; 96375; 96376; 99285; 83735; 84439; 84443; 85025; 85610; 93010; 99223; 99231; 99232; 99233; 99239; G0378; J0131; J1171; J1630; J2060; J2270; J3480; J3490